=== PATIENT | female | born 1955 | race Caucasian/White ===

== ENCOUNTER → 2018-07-26 13:23 | Outpatient (CLI) | payer OTHER, SELFPAY ==
--- NOTE | 2018-07-26 13:35 | CT_ITS ---
STUDY: CT CHEST WITHOUT CONTRAST REASON FOR EXAM: Female, 63 years old. Hypercholesterolemia. Cardiac over read examination. RADIATION DOSAGE (If Supplied By Facility): CTDIvol = ( 12.19 ) mGy, DLP = ( 268.17 ) mGycm TECHNIQUE: Transaxial imaging was performed without the administration of intravenous contrast material. Individualized dose optimization techniques were used for this CT. COMPARISON: None. FINDINGS: The lungs are normal. There is no demonstrated pleural abnormality. There are calcifications of the coronary arteries. There are multiple small lymph nodes within the mediastinum, which are normal in size and morphology most compatible with reactive lymph hyperplasia. Normal hilar regions. Normal unenhanced pulmonary arteries. Normal aorta arch and descending thoracic aorta. There are degenerative changes of the thoracic spine. There is no demonstrated abnormality of the visualized upper abdomen. CT/Limited Chest CT w/CCTA IMPRESSION: No acute abnormality is seen. Electronically Signed: Harjeet Mullen MD at 14:06 EST Tel [phone], Service support ,
[2018-07-26 13:47] VITALS: BP 136/68; PULSE 70; RESP 14; TEMP 37; O2SAT 96; BMI 42.2
--- NOTE | 2018-07-26 14:10 | CDU_ITS ---
Reason For Study: Carotid Stenosis Rt. Velocities/BP Lt. Velocities/BP Prox CCA 83.3/21.7 cm/sec. Prox CCA 74.6/20.4 cm/sec. Mid CCA 86.8/24 cm/sec. Mid CCA 76.8/19.3 cm/sec. Dist CCA 87.9/18.8 cm/sec. Dist CCA 79.7/24 cm/sec. Prox ICA 61/12.3 cm/sec. Prox ICA 63.6/18.5 cm/sec. Mid ICA 54.5/22.3 cm/sec. Mid ICA 72.1/21.7 cm/sec. Dist ICA 65.7/24.3 cm/sec. Dist ICA 70.4/25.8 cm/sec. Rt. ICA/CCA = 0.76. Lt. ICA/CCA = 0.94. Prox ECA 68.6/9.97 cm/sec. Prox ECA 68.4/15.3 cm/sec. Rt. Vert. 27.5/5.5 cm/sec. Lt. Vert. 46.7/9.43 cm/sec. Right Extracranial There is intimal thickening but no significant atherosclerotic plaque noted in the right common carotid artery. There is intimal thickening but no significant atherosclerotic plaque noted in the right internal carotid artery. There is intimal thickening but no significant atherosclerotic plaque noted in the right external carotid artery. Antegrade flow is noted in the right vertebral artery. Left Extracranial There is intimal thickening but no significant atherosclerotic plaque noted in the left common carotid artery. There is intimal thickening but no significant atherosclerotic plaque noted in the left internal carotid artery. There is intimal thickening but no significant atherosclerotic plaque noted in the left external carotid artery. Antegrade flow is noted in the left vertebral artery. Procedure Carotid Duplex 33111. Exam performed in department. Interpretation Summary Mild (<50%) stenosis right extracranial internal carotid. Mild (<50%) stenosis left extracranial internal carotid. Flow within the vertebral arteries is antegrade bilaterally. Ordering Physician: Zeinab Reddy Referring Physician: Zeinab Reddy Performed By: More Craig RVT and Student
--- NOTE | 2018-07-28 08:47 | CA.SCORE ---
Calcium Scoring Date of Study:: 07/26/18 Coronary Calcium Scoring: Coronary calcium scoring. High-resolution computed CT imaging of the chest was performed on 07/26/2018 with particular attention paid to the coronary arteries. Images from the examination were analyzed for the presence and extent of coronary artery calcification using the coronary calcium quantification software. The patient tolerated the procedure well and there were no complications. The results of the coronary calcification analysis are provided and demonstrate the following. Left main coronary calcium score of 0. Left anterior descending artery score 129. Left circumflex artery score 15.5. Right coronary artery score 2.3. Total calcium score 147. The above is suggestive of moderate plaque burden with moderate nonobstructive coronary disease likely. Conclusion moderate plaque burden for age. Total calcium score 147.
== END ==
PROVIDERS: Family Provider Internal Medicine; PCP Internal Medicine; Referring Provider Internal Medicine; Visit Provider Internal Medicine
DX: I65.29 Occlusion and stenosis of unspecified carotid artery (principal); E78.00 Pure hypercholesterolemia, unspecified; E11.9 Type 2 diabetes mellitus without complications; R79.89 Other specified abnormal findings of blood chemistry
CPT/HCPCS: 75571; 76380; 93880

== ENCOUNTER → 2018-08-15 06:01 | Outpatient (CLI) | payer OTHER, SELFPAY ==
--- NOTE | 2018-08-15 10:42 | STRESSREP ---
Stress Test Report Exercise myocardial perfusion stress test. 63-year-old lady with a history of chest pain. Resting EKG demonstrates normal sinus rhythm with a rate of 73 bpm normal intervals noted resting blood pressure 132/78 mmHg. The patient exercised according to regular Angel protocol for total duration of 5 minutes and 16 seconds completing 2 minutes and 16 seconds of stage II of the Angel protocol the maximum heart rate attained was 142 bpm which was 89% maximum predicted heart rate the maximum workload was 7 metabolic equivalents. The patient maintained sinus rhythm throughout the recording. At rest there were no ST or T wave changes noted suggest ischemia peak exercise nonspecific ST-T wave changes occasional premature ventricular complexes and upsloping EKG changes were noted with normally the criteria for ischemia. The test was terminated due to leg fatigue. No chest pain was noted. The resting blood pressure was 120 2/78 with a peak blood pressure 156/76. Myocardial perfusion protocol. 14.5 mCi of technetium 99m sestamibi was injected at rest. The patient exercised according to regular Angel protocol for 5-1/2 minutes. At peak exercise 44.8 mCi of technetium 99m sestamibi was injected stress images were obtained stress and rest images were reconstructed and compared in the short axis vertical long and horizontal long axis. Gated images were also obtained per Perfusion SPECT analysis. Review of the stress images demonstrated normal uptake of tracer noted in all areas of the myocardium. The resting images similarly demonstrated normal uptake of tracer noted in all areas of the myocardium. No areas of reversibility are noted suggest ischemia no previous infarct is noted. Gated SPECT analysis: The gated ejection fraction is noted to be 81%. Conclusion: Normal exercise myocardial perfusion stress test at a moderate workload. Preserved ejection fraction.
--- OUTSIDE RECORDS SUMMARY | 2018-10-10 11:11 | XMS RPT_ITS | Continuity of Care Document ---
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 Visit Summary Date of Service: 05/22/17 Chief Complaint: Atraumatic right knee pain Hi story of Present Illness: The patient is a 62 F who presents because of atraumatic right knee pain that she localizes over the medial tibial plateau and is concerned she has a DVT since she was diagnose d with pulmonary embolus in February of this year. Reviewing records from that admission indicates that there was no evidence of DVT of the lower or upper extremity. She reports compliance with her anti-coa gulant, Xarelto she denies any chest pain or shortness of breath. She does have history of remote injury to the right knee and history of osteoarthritis. She denies fever or chills. She denies history o f gout or pseudogout. She has no other complaints. Physical Examination: Vital signs are noted. She is obese woman with a BMI of 43.9. There is no asymmetry, swelling, discoloration, leg vein distentio n, palpable cords or tenderness along the distribution of the deep venous system. There is pain palpation over the medial tibial plateau region. There is discomfort with varus and valgus stress testing; however, there is no laxity. Cate's test was negative. She complained of pain medially with modified Osiel's test; however, there is no click. Patella is not ballotable and there is no effusion. There is no pain elevation in the popliteal fossa. There is no mass noted in the popliteal fossa. DP and PT pulse are palpable. Test Results: 4 view x-ray of the knee was obtained and interpreted by me as negative. Emergency Department Course and Treatment: X-ray was obtained to see if there is any evidence of fracture findings suggestive of pseudogout or any bony abnormality may explain her discomf ort. Since patient is on anticoagulant she was not given an NSAID. Treatment Plan: Tylenol for pain and follow-up with PCP if no improvement in a week. Disposition: Charge to home in stable and improv ed condition Impression: Atraumatic right knee pain suspect secondary to osteoarthritis ED Disposition - Plan for ED Patient: Disposition: Home or Assisted Living Chief Complaint: Lower Extremity In jury Instructions: ED Knee Pain [facility] Referrals: Zeinab Reddy MD [Primary Care Provider] - 1 Week if not improving Additional Instructions: Because you are on an anticoagulant recommend Tylenol for pain. If there is no improvement in the next 5-7 days follow-up with your primary care physician Dr. Reddy for additional pain management/treatment. What to do if you have Problems For any increased pa in, shortness of breath, bleeding, nausea or vomiting, chest pain, or any unexpected problems, contact your Primary Care Provider. Call [facility] ([phone]) or report to the closest Emergency Room. Call 911 if necessary. 05/22/17 0937 <Electronically signed by Edwardo Gomez MD> Date Edwardo Gomez MD Cosigner Signature (If Indica eulogio): Date CC: Zeinab Reddy MD 22-May-2017 Knee 4 or More Views Result: Comments: See Note; NOTES: [facility] Imaging Services [address] [place] [address] Knee 4 or More Views MR#: [id number] Acct: [id number] Name: LYN HUFF Rep #: [id number] : 1955 F 62 From: Manuel Hobbs MD PCP: Zeinab Reddy MD Status: REG ER Study: Knee 4 or More Views Date of Exam: 05/22/17 Exam# [id number] Ordering Dr: Edwardo Gomez MD STUDY: X-RAY - RIGH T KNEE REASON FOR EXAM: Female, 62 years old. Pain TECHNIQUE: 4 view(s) of the knee. COMPARISON: None. FINDINGS: Normal visualized distal femur. Normal visualized proximal tibia and fibula. Normal proximal tibiofibular articulation. Medial compartment chondrocalcinosis. Normal lateral femorotibial compartment. Normal patellofemoral articulation. The soft tissu e structures are unremarkable. RAD/Knee 4 or More Views IMPRESSION: Medial compartment chondrocalcinosis. No acute osseous abnormality is evident . Electronically Signed: Manuel Hobbs MD at 9:30 EDT Tel , Service support , CC: Zeinab Reddy MD; Edwardo Gomez MD Safety Investigator/Cause Analyst: Signed 20-Feb-2017 CTA Chest W/WO Contrast Result: Comments: See Note; NOTES: [facility] Imaging Services [address] [place] [address] Verdana 4d CTA Chest W/WO Contrast MR#: [id number] Acct: [id number] Name: LYN HUFF ep #: [id number] : 1955 F 61 From: Harjeet Mullen MD PCP: Zeinab Reddy MD Status: REG ER Study: CTA Chest W/WO Contrast Date of Exam: 02/20/17 Exam# [id number] Ordering Dr: Arden Katz STUDY: CTA CHEST REASON FOR EXAM: Female, 61 years old. Chest pain. Right upper extremity numbness. Hypertension. RADIATION DOSAGE (If Supplied By Facility): CTDIvol = ( 16.72 ) mGy, DLP = ( 714.0 3 ) mGycm TECHNIQUE: The examination was performed with the intravenous administration of 100mL ml of Isovue 370 contrast material. Post-processing of the angiographic images was performed, with multip lanar reformation and 3D reconstruction. Individualized dose optimization techniques were used for this CT. COMPARISON: None. FINDINGS: There is evidence of a non occlusive bilateral intraluminal filling defects in the right and left pulmonary arterial branches involving both the upper and lower lobes. There is prominence of both pulmonary arteries. Normal thora cic aorta and visualized great vessels. There is no demonstrated aortic dissection. Normal heart and pericardium. Normal mediastinum. Normal hilar regions. Normal visualized trachea and bronchi. The lungs are well expanded. Normal pulmonary parenchyma. Normal pleura. Normal chest wall structures. There are degenerative changes of thoracic spine. The patient is status post cholecystectomy. Sma ll hiatal hernia. CT/CTA Chest W/WO Contrast IMPRESSION: Bilateral pulmonary embolism involving the right and left pulmonary arteries and branche s as described. There is no evidence of a dissection of the aorta. Electronically Signed: Harjeet Mullen MD at 12:53 EDT Tel [phone], Service support , CC: Zeinab Reddy MD; Arden Katz MD Safety Investigator/Cause Analyst: Signed 20-Feb-2017 Chest 1 View (Portable) Result: Comments: See Note; NOTES: [facility] Imaging Services [address] [place] [address] Verdana 4d Chest 1 View (Portable) MR#: [id number] Acct: [id number] Name: LYN HUFF #: [id number] : 1955 F 61 From: Harjeet Mullen MD PCP: Zeinab Reddy MD Status: REG ER Study: Chest 1 View (Portable) Date of Exam: 02/20/17 Exam# [id number] Ordering Dr: Arden Katz STUDY: X-RAY CHEST REASON FOR EXAM: Female, 61 years old. Right arm numbness. TECHNIQUE: Single AP portable view of the chest. COMPARISON: Comparison is made with prior study dated August 02 014. FINDINGS: Hyperinflation. Scattered calcified granulomas. There is no demonstrated pleural abnormality. Normal size heart. Normal mediastinum and juana. Normal visualized pulmonary arteries. There is atherosclerotic tortuosity of the aortic arch and descending thoracic aorta. There are diffuse degenerative changes of the visualized thoracic spine. Normal vis ualized ribs, clavicles, and shoulders. There is no demonstrated abnormality of the visualized soft tissue structures of the upper abdomen. RAD/ Chest 1 View (Portable) IMPRESSION: Hyperinflation. The lungs are clear. Electronically Signed: Harjeet Mullen MD at 11:27 EDT Tel [phone], Service support , Fax CC: Zeinab Reddy MD; Arden Katz MD Safety Investigator/Cause Analyst: Signed 08-Dec-2016 Operative Report Result: Comments: See Note; NOTES: [facility] Medical Records Department [address] [place] [address] Operative Report MR#: [id number] Acct: [id number] Name: LYN HUFF Rep #: [id number] : 1955 61 From: Jessica Mcdaniel MD PCP: Zeinab Reddy MD Status: [facility] DATE OF SERVICE: 12/07/2016 DATE OF PROCEDURE: 12/07/2016 PROCEDURE: D and C and endometrial polypectomy. PREO PERATIVE DIAGNOSIS: Postmenopausal bleeding and 9 mm endometrial stripe on pelvic ultrasound. POSTOPERATIVE DIAGNOSIS: Postmenopausal bleeding and 9 mm endometrial stripe on pelvic ultrasound and endom etrial polyp noted. SURGEON: Jessica Mcdaniel M.D. REGISTERED NURSE NURSERY: None. ESTIMATED BLOOD LOSS: Minimal. COMPLICATIONS: None. ANESTHESIA: MAC IV sedation per Guerline Jo CRNA and 9 mL of 1% lidocaine w ithout epinephrine as a paracervical block. PATHOLOGY SPECIMENS: Include minimal uterine curettings and an endometrial polyp. NARRATIVE ACCOUNT: After the risks, benefits, alternatives of the procedur e were reviewed with the patient, informed consent was obtained. The patient was taken to the operating room with an IV running and placed in dorsal supine position where she was given IV sedation. Once sedated, she was repositioned to the dorsal lithotomy position and prepped and draped in the usual sterile fashion. A red Walton catheter was used to drain the bladder. A Graves speculum was then tong sera into the vagina and a single-tooth tenaculum was applied to the anterior lip of the cervix after 9 mL of a paracervical block was instilled subcutaneously at the 2 o'clock, 4 o'clock, 8 o'clock and 10 o'clock positions. The cervix was easily dilated to allow admission of a sharp curette. The sharp curettage was performed. There was an irregularity noted at the anterior lower uterine segment and a polyp forceps was advanced to the cervix. Using several passes, the polyp was grasped and removed. A final sharp curettage was performed and there was good crei noted in all quadrants. There was very mi nimal endometrial curettings otherwise obtained except for the endometrial polyp. The pathology sample was set aside. The single-tooth tenaculum was removed from the anterior lip of the cervix. The uppe r vagina and cervix were cleansed of any remaining tissue and blood using a sponge stick. The speculum was removed then excellent hemostasis was noted except there was a first-degree vaginal laceration at the posterior introitus due to the speculum. This area was oversewn with 3- 0 Vicryl in a running nonlocked fashion after instillation of 1% lidocaine prior to the repair. Excellent hemostasis was the n noted. The patient was returned to dorsal supine position. She was awakened from her MAC IV sedation, transferred to the recovery room bed in stable condition after tolerating the procedure well. Spon ge, lap, needle and instrument counts were correct x2. Medications given preop and intraop included 9 mL of 1% lidocaine as a paracervical block and as a subcutaneous block 1% lidocaine was also used fo r the laceration repair of the posterior introitus. The length of the repair was less than 5 mm. The patient also received some ketamine as part of her IV sedation. Please see the anesthesia record for complete listing of medications given preop and intraop. Jessica Mcdaniel MD T: NTS JOB: [id number] 12/08/16 0822 <Electronically signed by Jessica Mcdaniel MD> Date Jessica Mcdaniel MD Cosigner Signature (If Indicated): Date CC: Zeinab Reddy MD; Jessica Mcdaniel MD Date Dictated: 7 1409 Date Transcribed: 12/07/161408 Safety Investigator/Cause Analyst: Signed 07-Dec-2016 Discharge Instruction Result: Comments: See Note; NOTES: [facility] Medical Records Department [address] [place] [address] Instructions for Home/Discharge Instructions 12/07/16 1318 MR#: [id number] Acct: [id number] Name: LYN HUFF Rep #: [id number] : 1955 61 From: Jessica Mcdaniel MD PCP: Zeinab Reddy MD [place] [facility] [place] Diet: No Restrictions Discharge Activity: May Shower, May Take a Tub Bath May resume sexual activity in: No Restrictions Call your doctor if you observe: Fever of 101 or Higher, Inability to have a bowel movement, Using more than one pad per hour, Uncontrolled pain Allergies/Adverse Reactions: Allergies No Known Allergies Allergy (Verified 12/01/16 09:09) Medications to take at Discharge Metformin HCl 500 mg PO BID 08/02/14 Atorvastatin Calcium [Lipitor] 40 mg PO QHS 12/01/16 Ergocalciferol [Vitamin D] 50,000 unit PO MOFR 12/01/16 Liraglutide [Victoza 2-Sanjay] 1.2 mg SQ DAILY 12/01/16 Lisinopril/Hydrochlorothiazide [Zestoretic 20/12.5 Tablet] 1 tablet PO JAMILA LY 12/01/16 Vortioxetine Hydrobromide [Brintellix] 10 mg PO DAILY 12/01/16 Primary Care Physician: Zeinab Reddy MD [Primary Care Provider] - Please Follow Up With: Jessica Mcdaniel - [phone] When: postoperative follow up appointment in two weeks Proposed Discharge Date: 12/07/16 12/07/16 1320 <Electronically signed by Jessica Mcdaniel MD> Date Jessica Mcdaniel MD CC: Zeinab Reddy MD 25-Oct-2016 Transvaginal Non- Result: Comments: See Note; NOTES: [facility] Imaging Services [address] [place] [address] Verdana 4d Transvaginal Non- MR#: [id number] Acct: [id number] Name: LYN HUFF Rep #: [id number] : 1955 F 61 From: Jorge Luis Swenson MD PCP: Zeinab Reddy MD Status: REG CLI Study: Transvaginal Non- Date of Exam: 10/25/16 Exam# [id number] Ordering Dr: Henri Reddy MD STUDY: ULTRASOUND TRANSVAGINAL CLINICAL: Female, 61 years old. Postmenopausal bleeding TECHNIQUE: Transvaginal COMPARISON: None. FINDINGS: Normal uterine size measuring 8.2 cm in maximal craniocaudal dimension. There are no myometrial masses. Normal endometrial thickness measuring 9 mm. There appears to be some heterogeneous echotexture of the endometr ium towards the lower uterine segment with some cystic changes demonstrated. There are no endometrial masses, and there is no fluid in the endometrial cavity. Normal uterine cervix. There is a small hy poechoic nodular finding consistent with fibroid, a focus measuring maximally just under 1 cm. Neither ovary is identified, and there are no adnexal masses. There is no free fluid in the pelvis. US/Transvaginal Non- IMPRESSION: Abnormal endometrial thickness for a postmenopausal patient, measuring at least 9 mm with some cystic changes seen of the endometrial tissues towards the lower uterine segment. Endometrial sampling is recommended as findings are consistent with endometrial hyperplasia or neoplasia. Tiny isolated fibroid in the myometrium measures no more than 1 cm. Electronically Signed: Danie Swenson MD at 7:02 EST Tel , Service support [phone], CC: Zeinab Reddy MD Safety Investigator/Cause Analyst: Signed 25-Oct-2016 Pelvic (Non ) Result: Comments: See Note; NOTES: [facility] Imaging Services [address] [place] [address] Verdana 4d Pelvic (Non ) MR#: [id number] Acct: [id number] Name: LYN HUFF Rep #: [id number] : 1955 F 61 From: Jorge Luis Swenson MD PCP: Zeinab Reddy MD Status: REG CLI Study: Pelvic (Non ) Date of Exam: 10/25/16 Exam# [id number] Ordering Dr: Zeinab Reddy MD TUDY: ULTRASOUND TRANSVAGINAL CLINICAL: Female, 61 years old. Postmenopausal bleeding TECHNIQUE: Transvaginal COMPARISON: None. FINDINGS: Normal uterine size me asuring 8.2 cm in maximal craniocaudal dimension. There are no myometrial masses. Normal endometrial thickness measuring 9 mm. There appears to be some heterogeneous echotexture of the endometrium towa rds the lower uterine segment with some cystic changes demonstrated. There are no endometrial masses, and there is no fluid in the endometrial cavity. Normal uterine cervix. There is a small hypoechoic nodular finding consistent with fibroid, a focus measuring maximally just under 1 cm. Neither ovary is identified, and there are no adnexal masses. There is no free fluid in the pelvis. US/Pelvic (Non ) IMPRESSION: Abnormal endometrial thickness for a postmenopausal patient, measuring at least 9 mm with some cystic changes seen of the endometrial tissues towards the lower uterine segment. Endometrial sampling is recommended as findings are consistent with endometrial hyperplasia or neoplasia. Tiny isolated fibroid in the myometrium measures no more than 1 cm. Electronically Signed: Danie Swenson MD at 7:02 EST Tel , Service support [phone], CC: Zeinab Reddy MD Safety Investigator/Cause Analyst: Signed 08-Sep-2016 Abdomen WITH IV Contrast Result: Comments: See Note; NOTES: [facility] Imaging Services [address] [place] [address] Verdana 4d Abdomen WITH IV Contrast MR#: [id number] Acct: [id number] Name: LYN HUFF Rep #: [id number] : 1955 F 61 From: Ryan Mccormick MD PCP: Zeinab Reddy MD Status: REG CLI Study: Abdomen WITH IV Contrast Date of Exam: 09/08/16 Exam# [id number] Ordering Dr: Zeinab Reddy MD STUDY: CT ABDOMEN WITH CONTRAST REASON FOR EXAM: Female, 61 years old. Elevated testosterone, attn:adrenals RADIATION DOSAGE (If Supplied By Facility): CTDIvol = ( 18.74 ) mGy, DLP = ( 846.01 ) mGycm TECHNIQUE: Transaxial images were obtained post I.V. administration of 100CC ml of Isovue 300 contrast, and with oral contrast. Sagittal and coronal images were reconstructed. Individualized dose opti mization techniques were used for this CT. COMPARISON: None. FINDINGS: The visualized lung bases are unremarkable. The visualized portions of the heart are within n ormal limits. Normal liver. There are surgical clips in the gallbladder fossa consistent with a prior cholecystectomy. Normal spleen. Normal pancreas. Normal bilateral adrenal glands. Normal right ki dney. Normal left kidney. Normal visualized stomach. Normal small intestine. Normal colon. There is non-visualization of the appendix. Normal abdominal aorta. Normal inferior vena cava. Normal retrope ritoneum. There is a small umbilical hernia containing fat. There are diffuse degenerative changes of the visualized lumbar spine. CT/Abdomen WI TH IV Contrast IMPRESSION: Normal bilateral adrenal glands. Electronically Signed: Ryan Mccormick MD at 20:32 EST , Service support [phone], CC: Zeinab Reddy MD Safety Investigator/Cause Analyst: Signed 09-Jun-2016 Bilat Scrn Digital AND CAD Result: Comments: See Note; NOTES: [facility] Imaging Services [address] [place] [address] Verdana 4d Bilat Scrn Digital AND CAD MR#: [id number] Acct: [id number] Name: LYN HUFF Rep #: [id number] : 1955 F 61 From: Harjeet Mullen MD PCP: Zeinab Reddy MD Status: REG CLI Study: Bilat Scrn Digital AND CAD Date of Exam: 06/09/16 Exam# [id number] Ordering Dr: Zeinab Reddy MD MAMMOGRAPHY - BILATERAL SCREENING REASON FOR EXAM: Female, 61 years old. Routine annual screening examination. PERTINENT HISTORY: Non- contributory. TECHNIQUE: Digital bilateral breast addi (3D mammographic acquisition) in the CC and MLO projections. 2-D mediolateral oblique (MLO) and craniocaudad (CC) views of both breasts were obtained. CAD: Full Field Digital Mammography with Computer Added Detection was performed. COMPARISON: Comparison is made with prior study dated January 24, 2014 and March 22, 2012. FINDINGS: Breast Composition: The breasts are glen ost entirely fatty. There are no dominant masses or suspicious calcifications. No other significant abnormalities are identified. There has been no significant change since the prior study. HPBI/Bilat Scrn Digital AND CAD IMPRESSION: Stable bilateral screening mammogram. Yearly follow-up mammogram recommended. (A) ASSESSMENT CATEGORY: BIRADS Category 1: Negative. A letter regarding these results will be sent to the patient by the facility within 30 days. Approximately 10% of breast cancers are not dete cted by mammography. A normal mammogram should not delay biopsy of a clinically suspicious abnormality. [id number] Electronically Signed: Harjeet Mullen MD at 15:31 EDT Tel [phone], Ser vice support [phone], CC: Zeinab Reddy MD Safety Investigator/Cause Analyst: Signed 09-Jun-2016 Dexa Bone Density Study (HP) Result: Comments: See Note; NOTES: [facility] Imaging Services [address] [place] [address] Verdana 4d Dexa Bone Density Study (HP) MR#: [id number] Acct: [id number] Name: FABBY HUFF Rep #: [id number] : 1955 F 61 From: Harjeet Mullen MD PCP: Zeinab Reddy MD Status: REG CLI Study: Dexa Bone Density Study (HP) Date of Exam: 06/09/16 Exam# [id number] Ordering Dr: Zeinab Smith MD STUDY: DUAL ENERGY X-RAY ABSORPTIOMETRY / DXA REASON FOR EXAM: Female, 61 years old. Early menopause. TECHNIQUE: Bone Mineral Density (BMD) measurements of lumbar spine and bilateral hi ps were obtained. COMPARISON: None. FINDINGS: Lumbar Spine (L1-L4): g/cm2 (1.072) / T-score (-0.9) / Z-score (0.2) Findings are suggestive of normal bone density w ith a low fracture risk. Left Femur Total: g/cm2 (1.026) / T-score (0.1) / Z- score (1.0) Left Femoral Neck: g/cm2 (0.853) / T-score (-1.3) / Z-score (-0.1) Right Femur Total: g/cm2 (0.922) / T-score (- 0.7) / Z-score (0.2) Right Femoral Neck: g/cm2 (0.792) / T-score (-1.8) / Z-score (-0.6) HPBD/Dexa Bone Density Study (HP) IMPRESSION: The los ent is considered osteopenic at the level of the femoral neck as outlined below according to World Eze Organization (WHO) criteria with a moderate fracture risk. R eference Information: The T-score is the number of standard deviations above or below the standard which is normal for young adults at their peak bone mineral density. The World Health Organization (WHO ) interprets the T-scores as follows: Above -1 Normal bone density Between -1 and -2.5 Osteopenia Equal to / or below -2.5 Osteoporosis As a practical clinical guideline, osteopenia may be graded as f ollows: Mild -1 through -1.5 Moderate -1.6 through -2.0 Severe -2.1 through -2.4 The Z-score is the number of standard deviations above or below age-matched controls. A Z-score of less than -1.5 would be considered abnormal. References: 1. NIH Osteoporosis and Related Bone Diseases http://www.osteo.org 2. International Society for Clinical Densitometry http://www.iscd.org 3. National Osteoporosis Fo undation http://www.nof.org Electronically Signed: Harjeet Mullen MD at 13:29 EDT Tel [phone], Service support [phone], CC: Zeinab Reddy MD Safety Investigator/Cause Analyst: Signed 01-Jun-2016 Carotid Duplex Ultrasound Result: Comments: See Note; NOTES: [facility] Cardiovascular Services [address] [place] [address] Carotid Duplex Ultrasound 05/31/16 1301 MR#: [id number] Acct: [id number] Name: LYN RICHARD Rep #: [id number] : 1955 61 From: Samuel Johnston MD Attending Dr: Zeinab Reddy MD Status: REG CLI Ordering Dr: Zeinab Reddy MD Date: 05/31/16 Location: [facility] Sex: F C Admitted: Reason For Study: Carotid Stenosis Rt. Velocities/BP Lt. Velocities/BP Prox CCA 83/19 cm/sec. Prox CCA 77/18 cm/sec. Mid CCA 66/17 cm/sec. Mid CCA 74/25 cm/sec. Dist CCA 70/18 cm/sec. Dist CCA 80/25 cm /sec. Prox ICA 50/15 cm/sec. Prox ICA 48/17 cm/sec. Mid ICA 51/21 cm/sec. Mid ICA 57/20 cm/sec. Dist ICA 51/20 cm/sec. Dist ICA 116/39 cm/sec. Rt. ICA/CCA = 0.77. Lt. ICA/CCA = 1.56. Prox ECA 84/12 cm/s ec. Prox ECA 64/11 cm/sec. Rt. Vert. 25/8 cm/sec. Lt. Vert. 52/15 cm/sec. Right Extracranial There is intimal thickening but no significant atherosclerotic plaque noted in the right common carotid pam ry. There is no significant atherosclerotic plaque noted in the right internal carotid artery. There is no significant atherosclerotic plaque noted in the right external carotid artery. Antegrade flow i s noted in the right vertebral artery. Left Extracranial There is intimal thickening but no significant atherosclerotic plaque noted in the left common carotid artery. There is no significant atheroscl erotic plaque noted in the left internal carotid artery. There is no significant atherosclerotic plaque noted in the left external carotid artery. Antegrade flow is noted in the left vertebral artery. Procedure Carotid Duplex [id number]. Exam performed in department. Interpretation Summary Mild (<50%) stenosis right extracranial internal carotid. Mild (<50%) stenosis left extracranial int ernal carotid. Flow within the vertebral arteries is antegrade bilaterally. Ordering Physician: Zeinab Cody Referring Physician: Zeinab Reddy Performed By: Margarita Agustin, BERONICA, RVT 06/01/16824 Date Samuel Johnston MD CC: Zeinab Reddy MD Date Dictated: 05/31/16 1301 Date Transcribed: 06/01/16824 Safety Investigator/Cause Analyst: Signed 07-Aug-2014 Nuclear Stress Test - Treadmil Result: Comments: See Note; NOTES: [facility] Imaging Services [address] [place] [address] Nuclear Medicine Report MR#: [id number] Acct: [id number] Name: LYN HUFF Rep #: [id number] : 1955 F 59 From: Caden Barajas MD PCP: Zeinab Reddy MD Status: REG CLI Study: Nuclear Stress Test - Treadmil Date of Exam: 08/07/14 Exam# [id number] Ordering Dr: Carlotta Dennis EXERCISE TOLERANCE TEST: The patient exercised on a Angel protocol for 5 minutes completing stage 1 and 2 minutes of stage 2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 Comments: Patient Position: Sitting; Cuff Location: Left Arm; Cuff Size: Large BP Diastolic 80 mm[Hg] Comments: Patient Position: Sitting; Cuff Location: Left Arm; Cuff Size: Large Weight 236 lb Height 62 in Body Mass Index Calculated 43.16 kg/m2 Body Surface Area Calculated 2.05 m2 :34 Temperature 97.6 f Comments: Method: Oral Pulse 74 /min Comments: Pattern: Regular Respiration Rate 20 /min Comments: Pattern: Unlabored BP Systolic 124 mm[Hg] Comments: Patient Position: Sitting; Cuff Location: Left Arm; Cuff Size: Large BP Diastolic 78 mm[Hg] Comments: Patient Position: Sitting; Cuff Location: Left Arm; Cuff Size: Large Weight 236 lb Height 62 in Body Mass Index Calculated 43.16 kg/m2 Body Surface Area Calculated 2.05 m2 :43 Temperature 98.6 f Comments: Method: Oral Pulse 74 /min Comments: Pattern: Regular Respiration Rate 20 /min Comments: Pattern: Unlabored BP Systolic 122 mm[Hg] Comments: Patient Position: Sitting; Cuff Location: Left Arm; Cuff Size: Large BP Diastolic 78 mm[Hg] Comments: Patient Position: Sitting; Cuff Location: Left Arm; Cuff Size: Large Weight 263 lb Height 62 in Body Mass Index Calculated 48.1 kg/m2 Body Surface Area Calculated 2.15 m2 :32 Temperature 98.2 f Comments: Method: Temporal Pulse 72 /min Comments: Pattern: Regular Respiration Rate 16 /min Comments: Pattern: Unlabored O2 SAT 97 % Comments: Room air BP Systolic 136 mm[Hg] Comments: Patient Position: Sitting; Cuff Location: Left Arm; Cuff Size: Standard BP Diastolic 82 mm[Hg] Comments: Patient Position: Sitting; Cuff Location: Left Arm; Cuff Size: Standard Weight 268 lb Height 62 in Body Mass Index Calculated 49.02 kg/m2 Body Surface Area Calculated 2.16 m2 :51 Temperature 100.4 f Comments: Method: Oral Pulse 87 /min Comments: Pattern: Regular Respiration Rate 20 /min Comments: Pattern: Unlabored O2 SAT 95 % Comments: Room air BP Systolic 142 mm[Hg] Comments: Patient Position: Sitting; Cuff Location: Left Arm; Cuff Size: Standard BP Diastolic 72 mm[Hg] Comments: Patient Position: Sitting; Cuff Location: Left Arm; Cuff Size: Standard Weight 262 lb Height 62 in Body Mass Index Calculated 47.92 kg/m2 Body Surface Area Calculated 2.14 m2 :50 Temperature 97.8 f Comments: Method: Oral Pulse 74 /min Comments: Pattern: Regular Respiration Rate 18 /min Comments: Pattern: Unlabored BP Systolic 124 mm[Hg] Comments: Patient Position: Sitting; Cuff Location: Left Arm; Cuff Size: Standard BP Diastolic 84 mm[Hg] Comments: Patient Position: Sitting; Cuff Location: Left Arm; Cuff Size: Standard Weight 253 lb Height 62 in Body Mass Index Calculated 46.27 kg/m2 Body Surface Area Calculated 2.11 m2 :10 Temperature 98.4 f Comments: Method: Oral Pulse 78 /min Comments: Pattern: Regular Respiration Rate 20 /min Comments: Pattern: Unlabored BP Systolic 136 mm[Hg] Comments: Patient Position: Sitting; Cuff Location: Left Arm; Cuff Size: Standard BP Diastolic 80 mm[Hg] Comments: Patient Position: Sitting; Cuff Location: Left Arm; Cuff Size: Standard Weight 253 lb Height 62 in Body Mass Index Calculated 46.27 kg/m2 Body Surface Area Calculated 2.11 m2 :22 Temperature 99.4 f Comments: Method: Oral Pulse 74 /min Comments: Pattern: Regular Respiration Rate 20 /min Comments: Pattern: Unlabored BP Systolic 134 mm[Hg] Comments: Patient Position: Sitting; Cuff Location: Left Arm; Cuff Size: Standard BP Diastolic 86 mm[Hg] Comments: Patient Position: Sitting; Cuff Location: Left Arm; Cuff Size: Standard Weight 253 lb Height 62 in Body Mass Index Calculated 46.27 kg/m2 Body Surface Area Calculated 2.11 m2 :24 Temperature 97.8 f Comments: Method: Oral Pulse 70 /min Comments: Pattern: Regular Respiration Rate 20 /min Comments: Pattern: Unlabored BP Systolic 118 mm[Hg] Comments: Patient Position: Sitting; Cuff Location: Left Arm; Cuff Size: Large BP Diastolic 78 mm[Hg] Comments: Patient Position: Sitting; Cuff Location: Left Arm; Cuff Size: Large Weight 253 lb Height 62 in Body Mass Index Calculated 46.27 kg/m2 Body Surface Area Calculated 2.11 m2 :53 Temperature 98.2 f Comments: Method: Oral Pulse 80 /min Comments: Pattern: Regular Respiration Rate 18 /min Comments: Pattern: Unlabored BP Systolic 120 mm[Hg] Comments: Patient Position: Sitting; Cuff Location: Left Arm; Cuff Size: Standard BP Diastolic 76 mm[Hg] Comments: Patient Position: Sitting; Cuff Location: Left Arm; Cuff Size: Standard Weight 260.5625 lb Height 62 in Body Mass Index Calculated 47.66 kg/m2 Body Surface Area Calculated 2.14 m2 :44 Temperature 98.2 f Comments: Method: Oral Pulse 74 /min Comments: Pattern: Regular Respiration Rate 18 /min Comments: Pattern: Unlabored BP Systolic 120 mm[Hg] Comments: Patient Position: Sitting; Cuff Location: Left Arm; Cuff Size: Standard BP Diastolic 72 mm[Hg] Comments: Patient Position: Sitting; Cuff Location: Left Arm; Cuff Size: Standard Weight 260.5625 lb Height 62 in Body Mass Index Calculated 47.66 kg/m2 Body Surface Area Calculated 2.14 m2 :45 Temperature 98.4 f Comments: Method: Oral Pulse 72 /min Comments: Pattern: Regular Respiration Rate 20 /min Comments: Pattern: Unlabored BP Systolic 128 mm[Hg] Comments: Patient Position: Sitting; Cuff Location: Left Arm; Cuff Size: Standard BP Diastolic 78 mm[Hg] Comments: Patient Position: Sitting; Cuff Location: Left Arm; Cuff Size: Standard Weight 260.5625 lb Height 62 in Body Mass Index Calculated 47.66 kg/m2 Body Surface Area Calculated 2.14 m2 :11 Temperature 98.2 f Comments: Method: Oral Pulse 68 /min Comments: Pattern: Regular Respiration Rate 20 /min Comments: Pattern: Unlabored O2 SAT 96 % Comments: Room air BP Systolic 124 mm[Hg] Comments: Patient Position: Sitting; Cuff Location: Left Arm; Cuff Size: Large BP Diastolic 68 mm[Hg] Comments: Patient Position: Sitting; Cuff Location: Left Arm; Cuff Size: Large Weight 244 lb Height 61.5 in Body Mass Index Calculated 45.36 kg/m2 Body Surface Area Calculated 2.07 m2 :59 Temperature 98.2 f Comments: Method: Oral Pulse 76 /min Comments: Pattern: Regular Respiration Rate 20 /min Comments: Pattern: Unlabored BP Systolic 124 mm[Hg] Comments: Patient Position: Sitting; Cuff Location: Left Arm; Cuff Size: Large BP Diastolic 76 mm[Hg] Comments: Patient Position: Sitting; Cuff Location: Left Arm; Cuff Size: Large Weight 254 lb Height 61.5 in Body Mass Index Calculated 47.22 kg/m2 Body Surface Area Calculated 2.1 m2 :30 Temperature 99.1 f Comments: Method: Oral Pulse 92 /min Comments: Pattern: Regular Respiration Rate 20 /min Comments: Pattern: Unlabored BP Systolic 126 mm[Hg] Comments: Patient Position: Sitting; Cuff Location: Left Arm; Cuff Size: Large BP Diastolic 72 mm[Hg] Comments: Patient Position: Sitting; Cuff Location: Left Arm; Cuff Size: Large Weight 248 lb :59 Temperature 99.3 f Comments: Method: Oral Pulse 76 /min Comments: Pattern: Regular Respiration Rate 18 /min Comments: Pattern: Unlabored BP Systolic 140 mm[Hg] Comments: Patient Position: Sitting; Cuff Location: Left Arm; Cuff Size: Large BP Diastolic 100 mm[Hg] Comments: Patient Position: Sitting; Cuff Location: Left Arm; Cuff Size: Large Weight 249 lb :28 Pulse 78 /min Comments: Pattern: Regular Respiration Rate 18 /min Comments: Pattern: Unlabored BP Systolic 146 mm[Hg] Comments: Patient Position: Sitting; Cuff Location: Left Arm; Cuff Size: Large BP Diastolic 92 mm[Hg] Comments: Patient Position: Sitting; Cuff Location: Left Arm; Cuff Size: Large Weight 0 lb Height 0 in Head Circumference 0.00 cm :59 Temperature 98.2 f Comments: Method: Oral Pulse 80 /min Comments: Pattern: Regular Respiration Rate 16 /min Comments: Pattern: Unlabored BP Systolic 130 mm[Hg] Comments: Patient Position: Sitting; Cuff Location: Left Arm; Cuff Size: Large BP Diastolic 78 mm[Hg] Comments: Patient Position: Sitting; Cuff Location: Left Arm; Cuff Size: Large Weight 0 lb Height 0 in Head Circumference 0.00 cm :54 Pulse 76 /min Comments: Pattern: Regular Respiration Rate 16 /min Comments: Pattern: Unlabored BP Systolic 142 mm[Hg] Comments: Patient Position: Sitting; Cuff Location: Left Arm; Cuff Size: Large BP Diastolic 84 mm[Hg] Comments: Patient Position: Sitting; Cuff Location: Left Arm; Cuff Size: Large Weight 0 lb Height 0 in Head Circumference 0.00 cm :40 Temperature 98.4 f Comments: Method: Oral Pulse 76 /min Comments: Pattern: Regular Respiration Rate 16 /min Comments: Pattern: Unlabored BP Systolic 142 mm[Hg] Comments: Patient Position: Sitting; Cuff Location: Left Arm; Cuff Size: Standard BP Diastolic 94 mm[Hg] Comments: Patient Position: Sitting; Cuff Location: Left Arm; Cuff Size: Standard Weight 0 lb Height 0 in Head Circumference 0.00 cm :50 Temperature 98.6 f Comments: Method: Oral Pulse 60 /min Comments: Pattern: Regular Respiration Rate 20 /min Comments: Pattern: Unlabored BP Systolic 118 mm[Hg] Comments: Patient Position: Sitting; Cuff Location: Left Arm; Cuff Size: Large BP Diastolic 78 mm[Hg] Comments: Patient Position: Sitting; Cuff Location: Left Arm; Cuff Size: Large Weight 227 lb Height 0 in Head Circumference 0.00 cm :22 Temperature 97.8 f Comments: Method: Oral Pulse 70 /min Comments: Pattern: Regular Respiration Rate 18 /min Comments: Pattern: Unlabored BP Systolic 122 mm[Hg] Comments: Patient Position: Sitting; Cuff Location: Left Arm; Cuff Size: Standard BP Diastolic 78 mm[Hg] Comments: Patient Position: Sitting; Cuff Location: Left Arm; Cuff Size: Standard Weight 227 lb Height 0 in Head Circumference 0.00 cm :08 Temperature 98.2 f Comments: Method: Oral Pulse 68 /min Comments: Pattern: Regular Respiration Rate 18 /min Comments: Pattern: Unlabored BP Systolic 122 mm[Hg] Comments: Patient Position: Sitting; Cuff Location: Left Arm; Cuff Size: Standard BP Diastolic 80 mm[Hg] Comments: Patient Position: Sitting; Cuff Location: Left Arm; Cuff Size: Standard Weight 236 lb Height 61.5 in Body Mass Index Calculated 43.87 kg/m2 Body Surface Area Calculated 2.04 m2 Head Circumference 0.00 cm Results Date Description Value Details [id number] CBC WITH MANUAL DIFF Comments: PATIENT NOT FASTINGPERFORMED BY: [facility] Mtzcyp4848 [facility] [id number] Information: NURSE DRAW ([id number]) Immature Grans (Abs) 0.0 {x10E3/uL} (Normal) Range: 0.0-0.1 Immature Granulocytes 0 % (Normal) Baso (Absolute) 0.0 {x10E3/uL} (Normal) Range: 0.0-0.2 Eos (Absolute) 0.3 {x10E3/uL} (Normal) Range: 0.0-0.4 Monocytes(Absolute) 0.5 {x10E3/uL} (Normal) Range: 0.1-0.9 Lymphs (Absolute) 1.5 {x10E3/uL} (Normal) Range: 0.7-3.1 Neutrophils (Absolute) 3.8 {x10E3/uL} (Normal) Range: 1.4-7.0 Basos 1 % (Normal) Eos 4 % (Normal) Monocytes 9 % (Normal) Lymphs 25 % (Normal) Neutrophils 61 % (Normal) Platelets 293 {x10E3/uL} (Normal) Range: 150-379 RDW 14.2 % (Normal) Range: 12.3-15.4 MCHC 35.2 g/dL (Normal) Range: 31.5-35.7 MCH 31.7 pg (Normal) Range: 26.6-33.0 MCV 90 fL (Normal) Range: 79-97 Hematocrit 42.3 % (Normal) Range: 34.0-46.6 Hemoglobin 14.9 g/dL (Normal) Range: 11.1-15.9 RBC 4.70 {x10E6/uL} (Normal) Range: 3.77-5.28 WBC 6.2 {x10E3/uL} (Normal) Range: 3.4-10.8 7-Ecl-[id number]:45 Metabolic Panel, Comprehensive Comments: PATIENT NOT FASTINGPERFORMED BY: [facility] Obdttm5516 [facility] [id number] ([id number]) ALT (SGPT) 25 [iU]/L (Normal) Range: 0-32 AST (SGOT) 23 [iU]/L (Normal) Range: 0-40 Alkaline Phosphatase 77 [iU]/L (Normal) Range: 39-117 Bilirubin, Total 0.9 mg/dL (Normal) Range: 0.0-1.2 A/G Ratio 1.4 (Normal) Range: 1.2-2.2 Globulin, Total 3.1 g/dL (Normal) Range: 1.5-4.5 Albumin 4.3 g/dL (Normal) Range: 3.6-4.8 Protein, Total 7.4 g/dL (Normal) Range: 6.0-8.5 Calcium 9.5 mg/dL (Normal) Range: 8.7-10.3 Carbon Dioxide, Total 20 mmol/L (Normal) Range: 20-29 Chloride 102 mmol/L (Normal) Range: 96-106 Potassium 4.0 mmol/L (Normal) Range: 3.5-5.2 Sodium 142 mmol/L (Normal) Range: 134-144 BUN/Creatinine Ratio 17 (Normal) Range: 12-28 eGFR If Africn Am 81 mL/min/1.73 (Normal) eGFR If NonAfricn Am 70 mL/min/1.73 (Normal) Creatinine 0.89 mg/dL (Normal) Range: 0.57-1.00 BUN 15 mg/dL (Normal) Range: 8-27 Glucose 136 mg/dL (Abnormal) Range: 65-99 01-Opx-400237:41 HgA1C , Office (05025) HgA1C , Office 6.0 % (Normal) Range: 4.6 - 7.1 1-Qtm-454979:43 CALCIFIDIOL (78793) VIT D 25 Comments: PATIENT WAS FASTINGPERFORMED BY: [employer] [facility] HospitalGlycoMimeticsFormerly [facility] [id number] Vitamin D, 25-Hydroxy 39.6 ng/mL (Normal) Range: 30.0-100.0 Comments: Vitamin D deficiency has been defined by the [place] of[facility] Hospital[facility] and an Endocrine Society practice guideline as alevel of serum 25-OH vitamin D less than 20 ng/mL (1,2).The Endocrine Society went on to further define vitamin Dinsufficiency as a level between 21 and 29 ng/mL (2).1. IOM ([place] of Medicine). 2010. Dietary reference intakes for calcium and D. [place]: The National Academies Press.2. Ritika MF, Demetrio NC, Barbara PENNY, et al. Evaluation, treatment, and prevention of vitamin D deficiency: an Endocrine Society clinical practice guideline. JCEM. 2010; 96(7):1911-30. :43 METABOLIC PANEL, COMPREHENSIVE Comments: PATIENT WAS FASTINGPERFORMED BY: [facility] [employer] [id number] ([id number]) ALT (SGPT) 22 [iU]/L (Normal) Range: 0-32 AST (SGOT) 20 [iU]/L (Normal) Range: 0-40 Alkaline Phosphatase 83 [iU]/L (Normal) Range: 39-117 Bilirubin, Total 0.8 mg/dL (Normal) Range: 0.0-1.2 A/G Ratio 1.3 (Normal) Range: 1.2-2.2 Globulin, Total 3.1 g/dL (Normal) Range: 1.5-4.5 Albumin 4.1 g/dL (Normal) Range: 3.6-4.8 Protein, Total 7.2 g/dL (Normal) Range: 6.0-8.5 Calcium 9.3 mg/dL (Normal) Range: 8.7-10.3 Carbon Dioxide, Total 24 mmol/L (Normal) Range: 18-29 Chloride 103 mmol/L (Normal) Range: 96-106 Potassium 5.0 mmol/L (Normal) Range: 3.5-5.2 Sodium 143 mmol/L (Normal) Range: 134-144 BUN/Creatinine Ratio 18 (Normal) Range: 12-28 eGFR If Africn Am 104 mL/min/1.73 (Normal) eGFR If NonAfricn Am 90 mL/min/1.73 (Normal) Creatinine 0.73 mg/dL (Normal) Range: 0.57-1.00 BUN 13 mg/dL (Normal) Range: 8-27 Glucose 128 mg/dL (Abnormal) Range: 65-99 0-Yge-070816:43 CBC W/AUTO DIFF WBC (97060) Comments: PATIENT WAS FASTINGPERFORMED BY: [facility]Wovyoj9249 [facility] [id number]; fu 5-17 db Immature Grans (Abs) 0.0 {x10E3/uL} (Normal) Range: 0.0-0.1 Immature Granulocytes 0 % (Normal) Baso (Absolute) 0.0 {x10E3/uL} (Normal) Range: 0.0-0.2 Eos (Absolute) 0.2 {x10E3/uL} (Normal) Range: 0.0-0.4 Monocytes(Absolute) 0.7 {x10E3/uL} (Normal) Range: 0.1-0.9 Lymphs (Absolute) 2.6 {x10E3/uL} (Normal) Range: 0.7-3.1 Neutrophils (Absolute) 4.1 {x10E3/uL} (Normal) Range: 1.4-7.0 Basos 1 % (Normal) Eos 2 % (Normal) Monocytes 9 % (Normal) Lymphs 34 % (Normal) Neutrophils 54 % (Normal) Platelets 296 {x10E3/uL} (Normal) Range: 150-379 RDW 15.1 % (Normal) Range: 12.3-15.4 MCHC 34.5 g/dL (Normal) Range: 31.5-35.7 MCH 30.5 pg (Normal) Range: 26.6-33.0 MCV 88 fL (Normal) Range: 79-97 Hematocrit 40.9 % (Normal) Range: 34.0-46.6 Hemoglobin 14.1 g/dL (Normal) Range: 11.1-15.9 RBC 4.63 {x10E6/uL} (Normal) Range: 3.77-5.28 WBC 7.6 {x10E3/uL} (Normal) Range: 3.4-10.8 :20 HgA1C , Office (61354) HgA1C , Office 6.8 % (Normal) Range: 4.6 - 7.1 4-Pfs-136718:37 D-Dimer Quantitative (DVT/PE) Comments: [facility] [address] [facility]. [place], [place], [id number] D-DIMER QUANT < 0.27 {FEU/ug/m} (Abnormal) Range: 0.27-0.49 Comments: NORMAL D-Dimer level (<0.50) indicates no DVT or PE. 53-Jll-226545:35 LIPID PANEL (82753) Comments: PATIENT WAS FASTINGPERFORMED BY: BN [facility] [address] [id number] BY: CB [facility] Syaihl4108 [facility] [id number] LDL/HDL Ratio 2.0 {ratio_units} (Normal) Range: 0.0-3.2 Comments: LDL/HDL Ratio Men Women 1/2 Avg.Risk 1.0 1.5 Av g.Risk 3.6 3.2 2X Avg.Risk 6.2 5.0 3X Avg.Risk 8.0 6.1 LDL Cholesterol Calc 105 mg/dL (Abnormal) Range: 0-99 VLDL Cholesterol Jesús 36 mg/dL (Normal) Range: 5-40 HDL Cholesterol 52 mg/dL (Normal) Triglycerides 180 mg/dL (Abnormal) Range: 0-149 Cholesterol, Total 193 mg/dL (Normal) Range: 100-199 92-Agc-332690:35 LIPOPROTEIN, BLD, BY NMR Comments: PATIENT WAS FASTINGPERFORMED BY: BN [facility] Yllenukujw6353 [facility] [id number] BY: CB [facility] Eloulh1854 [facility] [id number]; fu - db ([id number]) LP-IR Score 72 (Abnormal) Comments: INSULIN RESISTANCE MARKER <--Insulin Sensitive Insulin Resistant--> Percentile in Reference PopulationInsulin Resistance ScoreLP-IR Score Low 25th 50th 75th High <27 27 45 63 >63LP-IR Score is inaccurate if patient is non-fasting. .The LP-IR score is a laboratory developed i [facility] that has beenassociated with insulin resistance and diabetes risk and should beused as one component of a physician's clinical assessment. TheLP-IR score listed above has not been cleared by the [place] Food andDrug Administration. LDL Size 21.0 nm (Normal) Comments: INTERPRETATIVE INFORMATION PARTICLE CONCENTRATION AND SIZE <--Lower CVD Risk Highe r CVD Risk--> LDL AND HDL PARTICLES Percentile in Reference Population HDL-P (total) High 75th 50th 25th Low >34.9 34.9 30.5 26.7 <26.7 . Small LDL-P Low 25th 50th 75th High <117 117 527 839 >839 . LDL Size <-Large (Pattern A)-> <-Small (Pattern B)-> 23.0 20.6 20.5 19.0 Small LDL-P and LDL Size are associated with CVD risk, but not afterLDL-P is taken into account. .These assays were developed and their performance characteristicsdetermined by [employer]. These assays have not been cleared by [place] Food and Drug Administration. The clinical utility of theselaboratory values have not been fully established. Small LDL-P 422 nmol/L (Normal) HDL-P (Total) 37.3 umol/L (Normal) Cholesterol, Total 194 mg/dL (Normal) Range: 100-199 Triglycerides 180 mg/dL (Abnormal) Range: 0-149 HDL-C 52 mg/dL (Normal) LDL-C 106 mg/dL (Abnormal) Range: 0-99 Comments: . Optimal < 100 Above optimal 100 - 129 Borderline 1 30 - 159 High 160 - 189 Very high > 189 .LDL-C is inaccurate if patient is non-fasting. LDL-P 1230 nmol/L (Abnormal) Comments: Low < 1000 Moderate 1000 - 1299 Borderline-High 1300 - 1599 High 1600 - 2000 Very High > 2000 09-Blj-233116:35 Homocysteine, Plasma Comments: PATIENT WAS FASTINGPERFORMED BY: [employer] [id number] BY: [employer] Bhlgru6175 [employer] [facility] [id number] ([id number]) Homocyst(e)ine, Plasma 11.3 umol/L (Normal) Range: 0.0-15.0 58-Tth-722854:10 MICROALBUMIN: CREATININE RATIO Comments: PATIENT NOT FASTINGPERFORMED BY: [employer] Shwrüm [facility] [id number] ([id number]) AND (67362) Microalb/Creat Ratio <8.6 {mg/g_creat} (Normal) Range: 0.0-30.0 Microalbumin, Urine <3.0 ug/mL (Normal) Creatinine, Urine 34.9 mg/dL (Normal) 31-Yud-603093:10 URINALYSIS (04680) Comments: PATIENT NOT FASTINGPERFORMED BY: [employer] [facility] [id number] Microscopic Examination MICNIP (Normal) Comments: Microscopic not indicated and not performed. Nitrite, Urine Negative (Normal) Urobilinogen,Semi-Qn 0.2 mg/dL (Normal) Range: 0.2-1.0 Bilirubin Negative (Normal) Occult Blood Negative (Normal) Ketones Negative (Normal) Glucose 3+ (Abnormal) Protein Negative (Normal) WBC Esterase Negative (Normal) Appearance Clear (Normal) Urine-Color Yellow (Normal) pH 7.0 (Normal) Range: 5.0-7.5 Specific Regina 1.013 (Normal) Range: 1.005-1.030 98-Cse-614578:10 Metabolic Panel, Comprehensive Comments: PATIENT NOT FASTINGPERFORMED BY: [facility]Fcpsfc5144 [facility] [id number] ([id number]) ALT (SGPT) 16 [iU]/L (Normal) Range: 0-32 AST (SGOT) 12 [iU]/L (Normal) Range: 0-40 Alkaline Phosphatase, S 75 [iU]/L (Normal) Range: 39-117 Bilirubin, Total 0.9 mg/dL (Normal) Range: 0.0-1.2 A/G Ratio 1.2 (Normal) Range: 1.2-2.2 Globulin, Total 3.1 g/dL (Normal) Range: 1.5-4.5 Albumin, Serum 3.8 g/dL (Normal) Range: 3.6-4.8 Protein, Total, Serum 6.9 g/dL (Normal) Range: 6.0-8.5 Calcium, Serum 8.9 mg/dL (Normal) Range: 8.7-10.3 Carbon Dioxide, Total 22 mmol/L (Normal) Range: 18-29 Chloride, Serum 100 mmol/L (Normal) Range: 96-106 Potassium, Serum 4.1 mmol/L (Normal) Range: 3.5-5.2 Sodium, Serum 140 mmol/L (Normal) Range: 134-144 BUN/Creatinine Ratio 10 (Abnormal) Range: 12-28 eGFR If Africn Am 96 mL/min/1.73 (Normal) eGFR If NonAfricn Am 83 mL/min/1.73 (Normal) Creatinine, Serum 0.78 mg/dL (Normal) Range: 0.57-1.00 BUN 8 mg/dL (Normal) Range: 8-27 Glucose, Serum 111 mg/dL (Abnormal) Range: 65-99 31-Rsm-949084:10 CBC WITH MANUAL DIFF Comments: PATIENT NOT FASTINGPERFORMED BY: DESI [facility]Dqmoeg[address] [place] [address] [id number] Information: DRAWN BY NURSE ([id number]) Immature Grans (Abs) 0.0 {x10E3/uL} (Normal) Range: 0.0-0.1 Immature Granulocytes 0 % (Normal) Baso (Absolute) 0.0 {x10E3/uL} (Normal) Range: 0.0-0.2 Eos (Absolute) 0.2 {x10E3/uL} (Normal) Range: 0.0-0.4 Monocytes(Absolute) 0.5 {x10E3/uL} (Normal) Range: 0.1-0.9 Lymphs (Absolute) 1.9 {x10E3/uL} (Normal) Range: 0.7-3.1 Neutrophils (Absolute) 5.4 {x10E3/uL} (Normal) Range: 1.4-7.0 Basos 0 % (Normal) Eos 3 % (Normal) Monocytes 6 % (Normal) Lymphs 24 % (Normal) Neutrophils 67 % (Normal) Platelets 301 {x10E3/uL} (Normal) Range: 150-379 RDW 14.2 % (Normal) Range: 12.3-15.4 MCHC 33.5 g/dL (Normal) Range: 31.5-35.7 MCH 30.3 pg (Normal) Range: 26.6-33.0 MCV 90 fL (Normal) Range: 79-97 Hematocrit 42.1 % (Normal) Range: 34.0-46.6 Hemoglobin 14.1 g/dL (Normal) Range: 11.1-15.9 RBC 4.66 {x10E6/uL} (Normal) Range: 3.77-5.28 WBC 8.1 {x10E3/uL} (Normal) Range: 3.4-10.8 51-Bwt-699423:13 Homocysteine, Plasma Comments: PATIENT NOT FASTINGPERFORMED BY: [address] [id number] Information: DRAWEN BY NURSE; fu 10-26 db per patient has not been taking the mtx (82224) Homocyst(e)ine, Plasma 16.5 umol/L (Abnormal) Range: 0.0-15.0 15-Cpf-759150:45 HgA1C , Office (93186) HgA1C , Office 6.1 % (Normal) Range: 4.6 - 7.1 4-Dld-318127:36 CBC-Complete Blood Cnt No Diff Comments: [facility] [address] [place], [address] MPV 9.9 fL (Normal) Range: 6.2-12.0 PLT 467 K/mm3 (Abnormal) Range: 150-450 RDW SD 44.9 fL (Abnormal) Range: 35.1-43.9 RDW CV 13.7 % (Normal) Range: 11.6-14.6 MCHC 34.5 {g/gl} (Normal) Range: 32-36 MCH 31.2 pg (Normal) Range: 27.0-32.0 MCV 90.6 fL (Normal) Range: 81-99 HCT 44.4 % (Normal) Range: 37-47 HGB 15.3 g/dL (Abnormal) Range: 12.0-15.0 RBC 4.90 {M/mm3} (Normal) Range: 4.2-5.4 WBC 7.5 K/mm3 (Normal) Range: 4.4-11.0 6-Nlt-508050:36 Thyroid Stim Hormone (TSH) Comments: [facility] [address] [place], [address] TSH 0.87 {uIU/mL} (Normal) Range: 0.358-3.74 8-Jph-449096:05 Basic Metabolic Profile (BMP) Comments: 'TROP' Serial specimen #1, #2, #3, or #4: [id number] [address] [place], [address] GAP 9 (Normal) Range: 5-15 CO2 24.0 mmol/L (Normal) Range: 21.0-32.0 CL 106 mmol/L (Normal) Range: 98-107 K 3.7 mmol/L (Normal) Range: 3.5-5.1 NA 139 mmol/L (Normal) Range: 136-145 CA 9.1 mg/dL (Normal) Range: 8.5-10.1 BUN/CRE 16.5 {RATIO} (Normal) Range: 10-20 Estimated CRCL 49.39 ml/min (Normal) EST GFR - AA 76 mL/min (Normal) Comments: GFR Calc EST GFR 62 mL/min (Normal) Comments: Non- GFR Calc CREAT,SERUM 0.97 mg/dL (Normal) Range: 0.55-1.02 Comments: The validity of the calculated GFR AND GFRAA in patients over70 years has not been determined. Clinical correlation isessential. BUN 16 mg/dL (Normal) Range: 7-18 GLU 142 mg/dL (Abnormal) Range: 70-110 Comments: Fasting Glucose result greater than or equal to 126 mg/dLsuggests DIABETES MELLITUS per A.D.A. criteria. 7-Gao-207847:05 CBC W/Diff, Automated Comments: [facility] [address] [place], [place], [id number] Absolute Lymph 2.08 {X10_3/ul} (Normal) Range: 0.83-4.51 Absolute Neut 7.1 {X10_3/uL} (Normal) Range: 2.0-7.7 IM GRAN % 0.200 % (Normal) Range: 0.0-0.9 Comments: IG% - Immature Granulocytes (promyelocytes, myelocytes andmetamyelocytes) > 1% indicates that a LEFT SHIFT is Present. BASO% 0.4 % (Normal) Range: 0-1 EO% 0.8 % (Normal) Range: 0-5 MONO% 7.5 % (Normal) Range: 0-10 LY% 20.6 % (Normal) Range: 19-41 NEUT% 70.5 % (Abnormal) Range: 47-70 MPV 9.1 fL (Normal) Range: 6.2-12.0 PLT 415 K/mm3 (Normal) Range: 150-450 RDW SD 43.7 fL (Normal) Range: 35.1-43.9 RDW CV 13.6 % (Normal) Range: 11.6-14.6 MCHC 34.9 {g/gl} (Normal) Range: 32-36 MCH 31.3 pg (Normal) Range: 27.0-32.0 MCV 89.7 fL (Normal) Range: 81-99 HCT 42.7 % (Normal) Range: 37-47 HGB 14.9 g/dL (Normal) Range: 12.0-15.0 RBC 4.76 {M/mm3} (Normal) Range: 4.2-5.4 WBC 10.1 K/mm3 (Normal) Range: 4.4-11.0 0-Hxp-051920:05 Troponin-I Comments: 'TROP' Serial specimen #1, #2, #3, or #4: 1[facility] [address] [place], [place], [address] TROPONIN-I < 0.02 ng/mL Comments: TROPONIN-I EXPECTED VALUES <0.05 NEGATIVE 0.06 - 0.59 AT RISK OF FL > OR = 0.60 SUGGEST FL (Normal) ENDOMETRIAL See Note (Normal) Comments: [facility] [address] [place], [place], [address] :30 BX/CURETTINGS Comments: Patient: LYN HUFF : 1955 (61/F) Acct Num: [id number] Phys: Jessica Mcdaniel MD Unit Num: [id number] [place] [facility] [place]imen: [id number] Received: 12/07/161408 Spec Type: END OM BX/C TISSUES TISSUES: COMMENT Case has been reviewed in consultation with Dr. Lyle who concurs with the abovediagnosis. IDC:AM GROSS DESCRIPTION Received is one container l abeled with the patient's name and designated endometrial curettings and polyp. The specimen consists of multiple fragmentsof blood clot mixed with pederson, hemorrhagic soft tissue in aggregate measure 7 .5 x3 x 0.3 cm. Also received is a piece of pederson-pink polyp measuring 1.5 x 1 x 0.3 cm. The entire specimen is submitted in four cassettes. Cassette 3 contains the polyp. / SJ:rodney 12/07/16 TC: 5 CP T: 02491 HEADER OPERATION: Dilatation and curettage PRE-OP DIAGNOSIS: Postmenopausal bleeding TISSUE SUBMITTED: Endometrial curettings and polyp MICROSCOPIC DESCRIPTION Slides are revie wed. MICROSCOPIC DIAGNOSIS Endometrial curettings and polyp: Polypoid fragments of endometrial tissue with simple and complex hyperplasia without atypia. Focal tubal metaplasia. Frag ments of benign ecto- and endocervical mucosa. SJ:rodney 12/08/16 Signed Jaswinder Gregorioin 12/09/16 <signature on file> 09-Ics-310540:14 Bedside Glucose Comments: [facility] LaboratoryPoint of [address] [place], [place] [address] BEDSIDE GLU 116 mg/dL (Abnormal) Range: 70-110 Comments: No Action RequiredMANAGEMENT OF PATIENT CARE PER NURSING PROTOCOL 2-Lpv-272078:24 PT (Prothrobim Time) Comments: copy of nd labs to Dr. mcdaniel; PATIENT NOT FASTINGPERFORMED BY: Vacatia [facility] [id number] BY: [place] [employer] [id number] (42596) Prothrombin Time 10.2 {sec} (Normal) Range: 9.1-12.0 INR 1.0 (Normal) Range: 0.8-1.2 Comments: Reference interval is for non-anticoagulated patients. . Suggested INR therapeutic range for Vitamin K anta gonist therapy: Standard Dose (moderate intensity therapeutic range): 2.0 - 3.0 Higher intensity therapeutic range 2.5 - 3.5 8-Yxv-012205:24 ESTRADIOL (22456) Comments: PATIENT NOT FASTINGPERFORMED BY: [employer]70 [facility] [id number] BY: Ombud [address] [id number] Estradiol 13.5 pg/mL (Normal) Comments: Adult Female: Follicular phase 12.5 - 166.0 Ovulation phase 85.8 - 498.0 Luteal phase 43.8 - 211.0 Postmenopausal <6.0 - 54.7 1st trimester 215.0 - & gt;4300.0 Girls (1-10 years) 6.0 - 27.0Roche ECLIA methodology 2-Oab-765349:24 TESTOSTERONE FREE (28568) Comments: PATIENT NOT FASTINGPERFORMED BY: LabJoseph Ville 6590770 [facility] [id number] BY: [address] [id number] Free Testosterone(Direct) 3.8 pg/mL (Normal) Range: 0.0-4.2 :24 CBC, Platelets & Auto Comments: PATIENT NOT FASTINGPERFORMED BY: [facility]6370 [facility] [id number] BY: [address] [id number] Diff (99594) Immature Grans (Abs) 0.0 {x10E3/uL} (Normal) Range: 0.0-0.1 Immature Granulocytes 0 % (Normal) Baso (Absolute) 0.0 {x10E3/uL} (Normal) Range: 0.0-0.2 Eos (Absolute) 0.2 {x10E3/uL} (Normal) Range: 0.0-0.4 Monocytes(Absolute) 0.7 {x10E3/uL} (Normal) Range: 0.1-0.9 Lymphs (Absolute) 2.3 {x10E3/uL} (Normal) Range: 0.7-3.1 Neutrophils (Absolute) 5.0 {x10E3/uL} (Normal) Range: 1.4-7.0 Basos 1 % (Normal) Eos 2 % (Normal) Monocytes 8 % (Normal) Lymphs 28 % (Normal) Neutrophils 61 % (Normal) Platelets 326 {x10E3/uL} (Normal) Range: 150-379 RDW 14.0 % (Normal) Range: 12.3-15.4 MCHC 35.2 g/dL (Normal) Range: 31.5-35.7 MCH 31.9 pg (Normal) Range: 26.6-33.0 MCV 91 fL (Normal) Range: 79-97 Hematocrit 43.2 % (Normal) Range: 34.0-46.6 Hemoglobin 15.2 g/dL (Normal) Range: 11.1-15.9 RBC 4.77 {x10E6/uL} (Normal) Range: 3.77-5.28 WBC 8.2 {x10E3/uL} (Normal) Range: 3.4-10.8 :24 PROLACTIN (39825) Comments: PATIENT NOT FASTINGPERFORMED BY: [facility]6370 [facility] [id number] BY: [address] [id number] Prolactin 15.1 ng/mL (Normal) Range: 4.8-23.3 :24 PTT (Activated Partial Comments: PATIENT NOT FASTINGPERFORMED BY: [address] [id number] BY: [address] [id number] Thromboplastin Time) (69809) aPTT 26 {sec} (Normal) Range: 24-33 Comments: This test has not been validated for monitoring unfractionated heparintherapy. aPTT-based therapeutic ranges for unfractionated heparintherapy have not been established. For general guidelines onHeparin monitoring, refer to the [facility] Directory of Services. 6-Gwv-794168:26 Urinalysis, Office (67972) URINE UROBILINGN FANNY TIMED Normal mg/dL (Normal) UA - PROTEIN Negative mg/dL (Normal) UA - PH 6.0 (Normal) UA - BLOOD Hemolyzed Small (Normal) UA - SPECIFIC GRAVITY 1.030 (Abnormal) UA - KETONES Negative mg/dL (Normal) UA - BILIRUBIN Negative (Normal) UA - GLUCOSE Negative (Normal) :27 HgA1C , Office (92779) HgA1C , Office 5.9 % (Normal) Range: 4.6 - 7.1 :27 Blood Glucose , Office (22468) Blood Glucose , Office 109 (Normal) :03 IGP, Aptima HPV, Comments: Source.............Cervix;EndocervixNo. of containers..01 CYTYC Thin Prep VialPATIENT NOT FASTINGPERFORMED BY: =Enoch [address] PlazaCharl[place] [id number] BY: WB LabCo rfx 16/18,[address] [id number] HPV Aptima Negative (Normal) Comments: This test detects fourteen high-risk HPV types (16/18/31/33/35/39/45/51/52/56/58/59/66/68) without differentiation. Note: PAPSMR (Normal) Comments: The Pap smear is a screening test designed to aid in the detection ofpremalignant and malignant conditions of the uterine cervix. It is not adiagnostic procedure and should not be used as the sole mean s of detectingcervical cancer. Both false-positive and false-negative reports do occur. .This liquid based ThinPrep(R) pap test w as screened with theuse of an image guided system. See Note . (Normal) DIAGNOSIS: SPRCS (Normal) Comments: NEGATIVE FOR INTRAEPITHELIAL LESION AND MALIGNANCY.Satisfactory for evaluation. No endocervical component is identified.Z01.419Margarita Reagan Crusher Setter (ASCP) :54 HEPATIC FUNCTION PANEL Comments: PATIENT WAS FASTINGPERFORMED BY: SAV[employer] [id number] BY: LabCN CreativeJeff[facility]Gqdpjj9852 [facility] [id number] (89755) ALT (SGPT) 15 [iU]/L (Normal) Range: 0-32 AST (SGOT) 10 [iU]/L (Normal) Range: 0-40 Alkaline Phosphatase, S 87 [iU]/L (Normal) Range: 39-117 Bilirubin, Direct 0.20 mg/dL (Normal) Range: 0.00-0.40 Bilirubin, Total 0.9 mg/dL (Normal) Range: 0.0-1.2 Albumin, Serum 4.1 g/dL (Normal) Range: 3.5-5.5 Protein, Total, Serum 7.2 g/dL (Normal) Range: 6.0-8.5 :54 LIPOPROTEIN, BLD, BY NMR Comments: PATIENT WAS FASTINGPERFORMED BY: [facility] [address] [place] [id number] BY: DESI [facility] Jpzfby8417 [facility] [id number] (58516) LP-IR Score 82 (Abnormal) Comments: INSULIN RESISTANCE MARKER <--Insulin Sensitive Insulin Resistant--> Percentile in Reference PopulationInsulin Resistance ScoreLP-IR Score Low 25th 50th 75th High <27 27 45 63 >63LP-IR Score is inaccurate if patient is non-fasting. .The LP-IR score is a laboratory developed i [facility] that has beenassociated with insulin resistance and diabetes risk and should beused as one component of a physician's clinical assessment. TheLP-IR score listed above has not been cleared by the [place] Food andDrug Administration. LDL Size 20.2 nm (Normal) Comments: INTERPRETATIVE INFORMATION PARTICLE CONCENTRATION AND SIZE <--Lower CVD Risk Highe r CVD Risk--> LDL AND HDL PARTICLES Percentile in Reference Population HDL-P (total) High 75th 50th 25th Low >34.9 34.9 30.5 26.7 <26.7 . Small LDL-P Low 25th 50th 75th High <117 117 527 839 >839 . LDL Size <-Large (Pattern A)-> <-Small (Pattern B)-> 23.0 20.6 20.5 19.0 Small LDL-P and LDL Size are associated with CVD risk, but not afterLDL-P is taken into account. .These assays were developed and their performance characteristicsdetermined by [employer]. These assays have not been cleared by [place] Food and Drug Administration. The clinical utility of theselaboratory values have not been fully established. Small LDL-P 1257 nmol/L (Abnormal) HDL-P (Total) 39.3 umol/L (Normal) Cholesterol, Total 279 mg/dL (Abnormal) Range: 100-199 Triglycerides 292 mg/dL (Abnormal) Range: 0-149 HDL-C 54 mg/dL (Normal) LDL-C 167 mg/dL (Abnormal) Range: 0-99 Comments: . Optimal < 100 Above optimal 100 - 129 Borderline 1 30 - 159 High 160 - 189 Very high > 189 .LDL-C is inaccurate if patient is non-fasting. LDL-P 2148 nmol/L (Abnormal) Comments: Low < 1000 Moderate 1000 - 1299 Borderline-High 1300 - 1599 High 1600 - 2000 Very High > 2000 :54 CALCIFEDIOL (99517) Comments: PATIENT WAS FASTINGPERFORMED BY: AdverCar1447 [facility] [id number] BY: SincerelyGallup Indian Medical CenterBcyrnr1502 [facility] [id number] Vitamin D, 25-Hydroxy 35.2 ng/mL (Normal) Range: 30.0-100.0 Comments: Vitamin D deficiency has been defined by the [place] ofMer[facility] Health St. Anne Hospitalcine and an Endocrine Society practice guideline as alevel of serum 25-OH vitamin D less than 20 ng/mL (1,2).The Endocrine Society went on to further define vitamin Dinsufficiency as a level between 21 and 29 ng/mL (2).1. IOM ([place] of Medicine). 2010. Dietary reference intakes for calcium and D. [place]: The National Academies Press.2. Ritika MF, Demetrio [place], Barbara PENNY, et al. Evaluation, treatment, and prevention of vitamin D deficiency: an Endocrine Society clinical practice guideline. JCEM. 2010; 96(7):1911-30. :54 TESTOSTERONE FREE (22249) Comments: PATIENT WAS FASTINGPERFORMED BY: Ombud Dwotuuktyw3783 [facility] [id number] BY: SincerelyJefferson [facility])Dcjqls0514 [facility] [id number] Free Testosterone(Direct) 5.6 pg/mL (Abnormal) Range: 0.0-4.2 :54 FSH AND LH (50698) Comments: PATIENT WAS FASTINGPERFORMED BY: ChemiSenseMatthew V[place] 812457 [facility] [id number] BY: [facility]6370 [facility] [id number] FSH 25.4 m[iU]/mL (Normal) Comments: Follicular phase 3.5 - 12.5 Ovulation phase 4.7 - 21.5 Luteal phase 1.7 - 7.7 Postmenopausal 25.8 - 134.8 LH 40.2 m[iU]/mL (Normal) Comments: Follicular phase 2.4 - 12.6 Ovulation phase 14.0 - 95.6 Luteal phase 1.0 - 11.4 Postmenopausal 7.7 - 58.5 67-Apa-423051:54 DHEA-S (DEHYDROEPIANDROSTERONE Comments: PATIENT WAS FASTINGPERFORMED BY: Sincerely[address] [id number] BY: [place] 7174570 [facility] [id number] SULFATE) (65290) DHEA-Sulfate 119.9 ug/dL (Normal) Range: 29.4-220.5 1-Dnf-380147:03 Thin prep Pap Comments: Source.............Cervix;EndocervixNo. of containers..01 CYTYC Thin Prep VialPATIENT NOT FASTINGPERFORMED BY: =G Lab[address] [id number] BY: [facility] ([address]) (no STD rp [address] [id number] Information: [id number] testing) Age Gdln ACOG Testing 30-65 (Normal) 09-Mzj-75118:48 URINE DAVID CULTURE-IDENTIFICATN Comments: PATIENT NOT FASTINGPERFORMED BY: [place] 7174570 [facility] [id number] Information: [id number] (66635) Result 1 MUG (Normal) Comments: Mixed urogenital flora2,000 Colonies/mL Urine Culture,Comprehensive Final report (Normal) 36-Rsj-52839:05 Urinalysis, Office (13231) UA - LEUKOCYTE ESTERASE Negative (Normal) UA - NITRITE Negative (Normal) URINE UROBILINGN FANNY TIMED Normal mg/dL (Normal) UA - PROTEIN Negative mg/dL (Normal) UA - PH 5 (Abnormal) UA - BLOOD Non Hemolyzed Trace (Normal) UA - SPECIFIC GRAVITY 1.030 (Abnormal) UA - KETONES Negative mg/dL (Normal) UA - BILIRUBIN Negative (Normal) UA - GLUCOSE Negative (Normal) 81-Fgf-913224:37 URINE DAVID CULTURE-IDENTIFICATN Comments: PATIENT NOT FASTINGPERFORMED BY: [facility]Br[facility]6370 [facility] [id number] Information: [id number] (59907) Antimicrobial MIHEAD (Normal) Comments: S = Susceptible; I = Intermediate; R = Resistant P = Positive; N = Negative MICS are expressed in micrograms per mL Antibiotic RSLT#1 RSLT#2 RS Susceptibility LT#3 RSLT#4Amoxicillin/Clavulanic Acid SAmpicillin RCefepime SCeftriaxone SCefuroxime SCephalothin SCiprofloxacin SErtapenem SGentamicin SImipenem SLevofloxacin SNitrofurantoin IPipera cillin STetracycline STobramycin STrimethoprim/Sulfa S Result 1 Klebsiella Comments: 100 Colonies/mL . pneumoniae (Abnormal) Urine Final report Culture,Comprehensive (Abnormal) 67-Ihy-936185:17 MICROALBUMIN: CREATININE RATIO Comments: PATIENT WAS FASTINGPERFORMED BY: SincerelyJefferson [facility])Xlcgmw3648 [facility] [id number] (75662) AND (44225) Microalb/Creat Ratio 6.1 {mg/g_creat} (Normal) Range: 0.0-30.0 Microalbumin, Urine 6.8 ug/mL (Normal) Range: 0.0-17.0 Comments: Effective January 25, 2016 the reference interval for Microalbumin, Urine will be changing to: Not Estab. Creatinine, Urine 111.5 mg/dL (Normal) Range: 15.0-278.0 Comments: Effective January 25, 2016 the reference interval for Creatinine, Urine will be changing to: Not Estab. 83-Rli-767576:17 METABOLIC PANEL, COMPREHENSIVE Comments: PATIENT WAS FASTINGPERFORMED BY: LabCoJefferson Strat[facility])Ypdpzt0456 [facility] [id number] (80210) ALT (SGPT) 20 [iU]/L (Normal) Range: 0-32 AST (SGOT) 17 [iU]/L (Normal) Range: 0-40 Alkaline Phosphatase, S 88 [iU]/L (Normal) Range: 39-117 Bilirubin, Total 0.9 mg/dL (Normal) Range: 0.0-1.2 A/G Ratio 1.4 (Normal) Range: 1.1-2.5 Globulin, Total 3.0 g/dL (Normal) Range: 1.5-4.5 Albumin, Serum 4.3 g/dL (Normal) Range: 3.5-5.5 Protein, Total, Serum 7.3 g/dL (Normal) Range: 6.0-8.5 Calcium, Serum 9.2 mg/dL (Normal) Range: 8.7-10.2 Carbon Dioxide, Total 22 mmol/L (Normal) Range: 18-29 Chloride, Serum 101 mmol/L (Normal) Range: 97-108 Potassium, Serum 4.7 mmol/L (Normal) Range: 3.5-5.2 Sodium, Serum 142 mmol/L (Normal) Range: 134-144 BUN/Creatinine Ratio 23 (Normal) Range: 9-23 eGFR If Africn Am 105 mL/min/1.73 (Normal) eGFR If NonAfricn Am 91 mL/min/1.73 (Normal) Creatinine, Serum 0.73 mg/dL (Normal) Range: 0.57-1.00 BUN 17 mg/dL (Normal) Range: 6-24 Glucose, Serum 118 mg/dL (Abnormal) Range: 65-99 68-Xfv-149395:17 LIPID PANEL (07960) Comments: PATIENT WAS FASTINGPERFORMED BY: [facility]CoJefferson [facility])Efkted7393 [facility] [id number] LDL/HDL Ratio 3.4 {ratio_units} (Abnormal) Range: 0.0-3.2 Comments: LDL/HDL Ratio Men Women 1/2 Avg.Risk 1.0 1.5 Av g.Risk 3.6 3.2 2X Avg.Risk 6.2 5.0 3X Avg.Risk 8.0 6.1 LDL Cholesterol Calc 165 mg/dL (Abnormal) Range: 0-99 VLDL Cholesterol Jesús 69 mg/dL (Abnormal) Range: 5-40 HDL Cholesterol 49 mg/dL (Normal) Comments: According to ATP-III Guidelines, HDL-C >59 mg/dL is considered anegative risk factor for CHD. Triglycerides 347 mg/dL (Abnormal) Range: 0-149 Cholesterol, Total 283 mg/dL (Abnormal) Range: 100-199 96-Pfa-994018:17 CBC with auto diff Comments: PATIENT WAS FASTINGPERFORMED BY: [facility]CoJefferson [facility])Kerzax9759 [facility] [id number] Information: [id number] (29886) Immature Grans (Abs) 0.0 {x10E3/uL} (Normal) Range: 0.0-0.1 Immature Granulocytes 0 % (Normal) Baso (Absolute) 0.0 {x10E3/uL} (Normal) Range: 0.0-0.2 Eos (Absolute) 0.2 {x10E3/uL} (Normal) Range: 0.0-0.4 Monocytes(Absolute) 0.6 {x10E3/uL} (Normal) Range: 0.1-0.9 Lymphs (Absolute) 2.4 {x10E3/uL} (Normal) Range: 0.7-3.1 Neutrophils (Absolute) 4.5 {x10E3/uL} (Normal) Range: 1.4-7.0 Basos 0 % (Normal) Eos 3 % (Normal) Monocytes 8 % (Normal) Lymphs 31 % (Normal) Neutrophils 58 % (Normal) Platelets 301 {x10E3/uL} (Normal) Range: 150-379 RDW 13.7 % (Normal) Range: 12.3-15.4 MCHC 33.3 g/dL (Normal) Range: 31.5-35.7 MCH 30.6 pg (Normal) Range: 26.6-33.0 MCV 92 fL (Normal) Range: 79-97 Hematocrit 44.8 % (Normal) Range: 34.0-46.6 Hemoglobin 14.9 g/dL (Normal) Range: 11.1-15.9 RBC 4.87 {x10E6/uL} (Normal) Range: 3.77-5.28 WBC 7.7 {x10E3/uL} (Normal) Range: 3.4-10.8 :27 Urinalysis, Office (51194) UA - LEUKOCYTE ESTERASE Trace (Normal) UA - NITRITE Negative (Normal) UA - PH 6 (Abnormal) Comments: 5.5 UA - SPECIFIC GRAVITY 1.030 (Abnormal) URINE UROBILINGN FANNY TIMED Normal mg/dL (Normal) UA - PROTEIN Negative mg/dL (Normal) UA - BLOOD Non Hemolyzed Trace (Normal) UA - KETONES Negative mg/dL (Normal) UA - BILIRUBIN Negative (Normal) UA - GLUCOSE Negative (Normal) :21 HgA1C , Office (14543) HgA1C , Office 6.6 % (Normal) Range: 4.6 - 7.1 :23 HgA1C , Office (76518) HgA1C , Office 5.7 % (Normal) Range: 4.6 - 7.1 :23 Blood Glucose , Office (80307) Blood Glucose , Office 101 (Normal) :42 CBCD ALC 1.98 {X10_3/ul} (Normal) Range: 0.83-4.51 ANC 3.5 {X10_3/uL} (Normal) Range: 2.0-7.7 IG% 0.000 % (Normal) Range: 0.0-0.9 Comments: IG% - Immature Granulocytes (promyelocytes, myelocytes andmetamyelocytes) > 1% indicates that a LEFT SHIFT is Present. B% 0.3 % (Normal) Range: 0-1 E% 2.0 % (Normal) Range: 0-5 M% 8.3 % (Normal) Range: 0-10 L% 32.2 % (Normal) Range: 19-41 N% 57.2 % (Normal) Range: 47-70 MPV 10.1 fL (Normal) Range: 6.2-12.0 PLT 314 K/mm3 (Normal) Range: 150-450 RDWSD 46.5 fL (Abnormal) Range: 35.1-43.9 RDWCV 14.0 % (Normal) Range: 11.6-14.6 MCHC 33.5 {g/gl} (Normal) Range: 32-36 MCH 30.8 pg (Normal) Range: 27.0-32.0 MCV 91.9 fL (Normal) Range: 81-99 HCT 43.0 % (Normal) Range: 37-47 HGB 14.4 g/dL (Normal) Range: 12.0-15.0 RBC 4.68 {M/mm3} (Normal) Range: 4.2-5.4 WBC 6.2 K/mm3 (Normal) Range: 4.4-11.0 :42 CMP GAP 5 (Normal) Range: 5-15 CO2 28.0 mmol/L (Normal) Range: 21.0-32.0 CL 107 mmol/L (Normal) Range: 98-107 K 4.6 mmol/L (Normal) Range: 3.5-5.1 NA 140 mmol/L (Normal) Range: 136-145 BIT 1.10 mg/dL (Normal) Range: 0.00-4.00 ALT 32 U/L (Normal) Range: 12-78 ALK 95 U/L (Normal) Range: 50-136 AST 17 U/L (Normal) Range: 15-37 CA 9.8 mg/dL (Normal) Range: 8.5-10.1 AG 1.0 {RATIO} (Normal) Range: 0.9-2.4 GLOB 3.8 g/dL (Normal) Range: 2.7-4.2 ALB 3.7 g/dL (Normal) Range: 3.4-5.0 TPROT 7.5 g/dL (Normal) Range: 6.4-8.2 BC 24.4 {RATIO} (Abnormal) Range: 10-20 GFRAA 84 mL/min (Normal) GFR 69 mL/min (Normal) CREAT 0.9 mg/dL (Normal) Range: 0.6-1.0 BUN 22 mg/dL (Abnormal) Range: 7-18 GLU 93 mg/dL (Normal) Range: 70-110 :42 LIPID VLDL 25 mg/dL (Normal) Range: 5-40 LDL 127 mg/dL (Normal) Range: 0-130 HDL 47 mg/dL (Normal) Comments: Reference RangeHDL <40 mg/dL Low HDL CholesterolHDL >or= 60 mg/dL High HDL Cholesterol TRIG 126 mg/dL (Normal) Range: 0-199 Comments: Serum Triglycerides Reference IntervalNormal <150 mg/dLBorderline high 150 - 199 mg/dLHigh 200 - 499 mg/ dLVery High > or = 500 mg/dL CHOL 199 mg/dL (Normal) Comments: <200 mg/dL Cjcxwbxcf836-502 mg/dL Borderline>240 mg/dL High Risk 07-Pzv-525876:01 Renal function Panel Comments: PATIENT NOT FASTINGPERFORMED BY: SincerelyGallup Indian Medical CenterBzabzf9782 [facility] [id number] Information: [id number] (62481) Albumin, Serum 4.5 g/dL (Normal) Range: 3.5-5.5 Phosphorus, Serum 4.2 mg/dL (Normal) Range: 2.5-4.5 Calcium, Serum 10.3 mg/dL (Abnormal) Range: 8.7-10.2 Carbon Dioxide, Total 24 mmol/L (Normal) Range: 18-29 Chloride, Serum 101 mmol/L (Normal) Range: 97-108 Potassium, Serum 4.7 mmol/L (Normal) Range: 3.5-5.2 Sodium, Serum 140 mmol/L (Normal) Range: 134-144 BUN/Creatinine Ratio 14 (Normal) Range: 9-23 eGFR If Africn Am 96 mL/min/1.73 (Normal) eGFR If NonAfricn Am 83 mL/min/1.73 (Normal) Creatinine, Serum 0.79 mg/dL (Normal) Range: 0.57-1.00 BUN 11 mg/dL (Normal) Range: 6-24 Glucose, Serum 105 mg/dL (Abnormal) Range: 65-99 36-Hhy-658342:01 MAGNESIUM (26086) Comments: PATIENT NOT FASTINGPERFORMED BY: [facility]enseBr[facility]6370 [facility] [id number] Magnesium, Serum 1.8 mg/dL (Normal) Range: 1.6-2.6 63-Pcw-191008:54 C-Reactive Protein (92435) Comments: PATIENT NOT FASTINGPERFORMED BY: [facility]iSenseBr[facility] Hospital6370 [facility] [id number] C-Reactive Protein, Quant 2.5 mg/L (Normal) Range: 0.0-4.9 63-Myk-083435:54 Sed Rate Erythrocyte (88268) Comments: PATIENT NOT FASTINGPERFORMED BY: [facility] [facility] [id number] Sedimentation Rate-Westergren 4 mm/h (Normal) Range: 0-40 70-Cnu-801456:54 T4, FREE (THYROXINE) (29980) Comments: PATIENT NOT FASTINGPERFORMED BY: [facility] [facility] [id number] T4,Free(Direct) 1.32 ng/dL (Normal) Range: 0.82-1.77 50-Rlk-370986:54 TSH (38456) Comments: PATIENT NOT FASTINGPERFORMED BY: [place] [id number] [facility] [id number] Information: [id number] TSH 1.770 {uIU/mL} (Normal) Range: 0.450-4.500 :39 HgA1C , Office (38572) HgA1C , Office 5.8 % (Normal) Range: 4.6 - 7.1 :39 Blood Glucose , Office (39676) Blood Glucose , Office 96 (Normal) :23 LIPID PANEL (18821) Comments: PATIENT WAS FASTINGPERFORMED BY: [facility] [facility] [id number] Information: [id number] LDL/HDL Ratio 2.6 {ratio_units} (Normal) Range: 0.0-3.2 LDL Cholesterol Calc 99 mg/dL (Normal) Range: 0-99 VLDL Cholesterol Jesús 41 mg/dL (Abnormal) Range: 5-40 HDL Cholesterol 38 mg/dL (Abnormal) Comments: According to ATP-III Guidelines, HDL-C >59 mg/dL is considered anegative risk factor for CHD. Triglycerides 204 mg/dL (Abnormal) Range: 0-149 Cholesterol, Total 178 mg/dL (Normal) Range: 100-199 :23 HEPATIC FUNCTION PANEL ([id number]) Comments: PATIENT WAS FASTINGPERFORMED BY: [facility]6370 [facility] [id number] ALT (SGPT) 23 [iU]/L (Normal) Range: 0-32 AST (SGOT) 19 [iU]/L (Normal) Range: 0-40 Alkaline Phosphatase, S 84 [iU]/L (Normal) Range: 39-117 Bilirubin, Direct 0.23 mg/dL (Normal) Range: 0.00-0.40 Bilirubin, Total 1.0 mg/dL (Normal) Range: 0.0-1.2 Albumin, Serum 4.4 g/dL (Normal) Range: 3.5-5.5 Protein, Total, Serum 7.2 g/dL (Normal) Range: 6.0-8.5 :42 MICROALBUMIN: CREATININE RATIO Comments: PATIENT WAS FASTINGPERFORMED BY: [employer] Ltmnhs7659 [facility] [id number] ([id number]) AND (59677) Creatinine, Urine 152.1 mg/dL (Normal) Range: 15.0-278.0 Microalb/Creat Ratio 23.3 {mg/g_creat} (Normal) Range: 0.0-30.0 Microalbumin, Urine 35.5 ug/mL (Abnormal) Range: 0.0-17.0 :42 METABOLIC PANEL, COMPREHENSIVE Comments: PATIENT WAS FASTINGPERFORMED BY: nlighten TechnologiesJefferson [facility]Ctgjnt6142 [facility] [id number] ([id number]) ALT (SGPT) 18 [iU]/L (Normal) Range: 0-32 AST (SGOT) 16 [iU]/L (Normal) Range: 0-40 Alkaline Phosphatase, S 83 [iU]/L (Normal) Range: 39-117 Bilirubin, Total 1.1 mg/dL (Normal) Range: 0.0-1.2 A/G Ratio 1.5 (Normal) Range: 1.1-2.5 Globulin, Total 2.9 g/dL (Normal) Range: 1.5-4.5 Albumin, Serum 4.3 g/dL (Normal) Range: 3.5-5.5 Protein, Total, Serum 7.2 g/dL (Normal) Range: 6.0-8.5 Calcium, Serum 9.4 mg/dL (Normal) Range: 8.7-10.2 Carbon Dioxide, Total 22 mmol/L (Normal) Range: 19-28 Chloride, Serum 98 mmol/L (Normal) Range: 97-108 Potassium, Serum 4.2 mmol/L (Normal) Range: 3.5-5.2 Sodium, Serum 138 mmol/L (Normal) Range: 134-144 BUN/Creatinine Ratio 16 (Normal) Range: 9-23 eGFR If Africn Am 101 mL/min/1.73 (Normal) eGFR If NonAfricn Am 88 mL/min/1.73 (Normal) Creatinine, Serum 0.76 mg/dL (Normal) Range: 0.57-1.00 BUN 12 mg/dL (Normal) Range: 6-24 Glucose, Serum 154 mg/dL (Abnormal) Range: 65-99 :42 LIPID PANEL (12655) Comments: PATIENT WAS FASTINGPERFORMED BY: [employer] [facility] [id number] LDL/HDL Ratio 3.5 {ratio_units} (Abnormal) Range: 0.0-3.2 LDL Cholesterol Calc 152 mg/dL (Abnormal) Range: 0-99 HDL Cholesterol 43 mg/dL (Normal) Comments: According to ATP-III Guidelines, HDL-C >59 mg/dL is considered anegative risk factor for CHD. VLDL Cholesterol Jesús 73 mg/dL (Abnormal) Range: 5-40 Cholesterol, Total 268 mg/dL (Abnormal) Range: 100-199 Triglycerides 363 mg/dL (Abnormal) Range: 0-149 :42 CBC WITH MANUAL DIFF Comments: PATIENT WAS FASTINGPERFORMED BY: [facility] [id number] Information: [id number] (42982) Immature Grans (Abs) 0.0 {x10E3/uL} (Normal) Range: 0.0-0.1 Immature Granulocytes 0 % (Normal) Range: 0-2 Baso (Absolute) 0.0 {x10E3/uL} (Normal) Range: 0.0-0.2 Eos (Absolute) 0.2 {x10E3/uL} (Normal) Range: 0.0-0.4 Monocytes(Absolute) 0.7 {x10E3/uL} (Normal) Range: 0.1-0.9 Lymphs (Absolute) 2.6 {x10E3/uL} (Normal) Range: 0.7-3.1 Neutrophils (Absolute) 4.2 {x10E3/uL} (Normal) Range: 1.4-7.0 Basos 1 % (Normal) Range: 0-3 Eos 2 % (Normal) Range: 0-5 Monocytes 9 % (Normal) Range: 4-12 Lymphs 34 % (Normal) Range: 14-46 Neutrophils 54 % (Normal) Range: 40-74 Platelets 311 {x10E3/uL} (Normal) Range: 155-379 RDW 14.3 % (Normal) Range: 12.3-15.4 MCHC 33.8 g/dL (Normal) Range: 31.5-35.7 MCH 30.3 pg (Normal) Range: 26.6-33.0 MCV 90 fL (Normal) Range: 79-97 Hematocrit 42.6 % (Normal) Range: 34.0-46.6 Hemoglobin 14.4 g/dL (Normal) Range: 11.1-15.9 RBC 4.76 {x10E6/uL} (Normal) Range: 3.77-5.28 WBC 7.7 {x10E3/uL} (Normal) Range: 3.4-10.8 2-Exj-261780:35 HgA1C , Office (19720) HgA1C , Office 6.4 % (Normal) Range: 4.6 - 7.1 1-Fon-796670:34 Blood Glucose , Office (11997) Blood Glucose , Office 124 (Normal) 53-Ynl-709051:21 Rapid Flu (42253 x 2) Influenza A Ag negative (Normal) 75-Mbn-837403:23 MICROALBUMIN: CREATININE RATIO Comments: PATIENT NOT FASTINGPERFORMED BY: [facility])Vxfzpf3449 [facility] [id number] ([id number]) AND (48573) Microalb/Creat Ratio 3.5 {mg/g_creat} (Normal) Range: 0.0-30.0 Microalbumin, Urine 5.6 ug/mL (Normal) Range: 0.0-17.0 Creatinine, Urine 158.0 mg/dL (Normal) Range: 15.0-278.0 49-Kbr-718245:23 METABOLIC PANEL, COMPREHENSIVE Comments: PATIENT NOT FASTINGPERFORMED BY: [facility]Br[facility]6370 [facility] [id number] (85570) ALT (SGPT) 16 [iU]/L (Normal) Range: 0-32 AST (SGOT) 15 [iU]/L (Normal) Range: 0-40 Alkaline Phosphatase, S 89 [iU]/L (Normal) Range: 25-150 Bilirubin, Total 1.1 mg/dL (Normal) Range: 0.0-1.2 A/G Ratio 1.4 (Normal) Range: 1.1-2.5 Globulin, Total 3.1 g/dL (Normal) Range: 1.5-4.5 Albumin, Serum 4.4 g/dL (Normal) Range: 3.5-5.5 Protein, Total, Serum 7.5 g/dL (Normal) Range: 6.0-8.5 Calcium, Serum 9.7 mg/dL (Normal) Range: 8.7-10.2 Carbon Dioxide, Total 20 mmol/L (Normal) Range: 20-32 Chloride, Serum 102 mmol/L (Normal) Range: 97-108 Potassium, Serum 4.3 mmol/L (Normal) Range: 3.5-5.2 Sodium, Serum 139 mmol/L (Normal) Range: 134-144 BUN/Creatinine Ratio 25 (Abnormal) Range: 9-23 eGFR If Africn Am 104 mL/min/1.73 (Normal) eGFR If NonAfricn Am 90 mL/min/1.73 (Normal) Creatinine, Serum 0.75 mg/dL (Normal) Range: 0.57-1.00 BUN 19 mg/dL (Normal) Range: 6-24 Glucose, Serum 101 mg/dL (Abnormal) Range: 65-99 43-Qva-212804:23 CBC WITH MANUAL DIFF Comments: PATIENT NOT FASTINGPERFORMED BY: [facility]6370 [facility] [id number] Information: [id number] (17749) Immature Grans (Abs) 0.0 {x10E3/uL} (Normal) Range: 0.0-0.1 Immature Granulocytes 0 % (Normal) Range: 0-2 Baso (Absolute) 0.0 {x10E3/uL} (Normal) Range: 0.0-0.2 Eos (Absolute) 0.1 {x10E3/uL} (Normal) Range: 0.0-0.4 Monocytes(Absolute) 0.7 {x10E3/uL} (Normal) Range: 0.1-1.0 Lymphs (Absolute) 2.8 {x10E3/uL} (Normal) Range: 0.7-4.5 Neutrophils (Absolute) 4.8 {x10E3/uL} (Normal) Range: 1.8-7.8 Basos 0 % (Normal) Range: 0-3 Eos 2 % (Normal) Range: 0-7 Monocytes 8 % (Normal) Range: 4-13 Lymphs 33 % (Normal) Range: 14-46 Neutrophils 57 % (Normal) Range: 40-74 Platelets 310 {x10E3/uL} (Normal) Range: 140-415 RDW 13.8 % (Normal) Range: 12.3-15.4 MCHC 34.6 g/dL (Normal) Range: 31.5-35.7 MCH 30.7 pg (Normal) Range: 26.6-33.0 MCV 89 fL (Normal) Range: 79-97 Hematocrit 41.0 % (Normal) Range: 34.0-46.6 Hemoglobin 14.2 g/dL (Normal) Range: 11.1-15.9 RBC 4.63 {x10E6/uL} (Normal) Range: 3.77-5.28 WBC 8.5 {x10E3/uL} (Normal) Range: 4.0-10.5 :52 Blood Glucose , Office (31505) Blood Glucose , Office 116 (Normal) :52 HgA1C , Office (48693) HgA1C , Office 6.2 % (Normal) Range: 4.6 - 7.1 :37 Rapid Flu (34133 x 2) Influenza A Ag negative (Normal) :27 HgA1C , Office (13491) HgA1C , Office 5.7 % (Normal) Range: 4.6 - 7.1 :27 Blood Glucose , Office (05305) Blood Glucose , Office 98 (Normal) 87-Rsv-835081:18 CREATININE CLEARANCE Comments: PATIENT NOT FASTINGPERFORMED BY: [facility]Ozapel4448 [facility] [id number] Information: [id number] (23242) 24 HOUR Creatinine Clearance 104 mL/min (Normal) Range: 88-128 Comments: The above range is based on 1.73 square meter average body surfacearea. Creatinine, Ur 24hr 1169.7 {mg/24_hr} (Normal) Range: 800.0-1800.0 Creatinine, Urine 55.7 mg/dL (Normal) Range: 15.0-278.0 eGFR If Africn Am 99 mL/min/1.73 (Normal) eGFR If NonAfricn Am 86 mL/min/1.73 (Normal) Creatinine, Serum 0.78 mg/dL (Normal) Range: 0.57-1.00 63-Uff-239959:43 LIPID PANEL (85176) Comments: PATIENT WAS FASTINGPERFORMED BY: [facility]Axgzgs2048 [facility] [id number] Information: [id number] LDL/HDL Ratio 3.0 {ratio_units} (Normal) Range: 0.0-3.2 LDL Cholesterol Calc 145 mg/dL (Abnormal) Range: 0-99 VLDL Cholesterol Jesús 61 mg/dL (Abnormal) Range: 5-40 HDL Cholesterol 48 mg/dL (Normal) Comments: According to ATP-III Guidelines, HDL-C >59 mg/dL is considered anegative risk factor for CHD. Triglycerides 307 mg/dL (Abnormal) Range: 0-149 Cholesterol, Total 254 mg/dL (Abnormal) Range: 100-199 17-Gcg-527017:53 HgA1C , Office (81232) HgA1C , Office 6.8 % (Normal) Range: 4.6 - 7.1 :53 Blood Glucose , Office (59753) Blood Glucose , Office 111 (Normal) 73-Snx-107396:03 Thin prep Pap Comments: Source.............Cervical;EndocervicalNo. of containers..01 CYTYC Thin Prep VialPATIENT NOT FASTINGPERFORMED BY: Lab[address] [id number] Information: [id number] ([id number]) Note: PAPSMR (Normal) Comments: The Pap smear is a screening test designed to aid in the detection ofpremalignant and malignant conditions of the uterine cervix. It is not adiagnostic procedure and should not be used as the sole mean s of detectingcervical cancer. Both false-positive and false-negative reports do occur. .The HPV DNA reflex criteria were not met with this specimen resulttherefore, no HPV testing was performed. . See Note . (Normal) DIAGNOSIS: SPRCS (Normal) Comments: NEGATIVE FOR INTRAEPITHELIAL LESION AND MALIGNANCY.Satisfactory for evaluation. No endocervical component is identified.V72.31 ; Routine gynecological examinationCyntyovany Nails Crusher Setter (ASCP) 62-Rbf-971927:06 HgA1C , Office (06681) HgA1C , Office 5.8 % (Normal) Range: 4.6 - 7.1 34-Akq-315163:06 Blood Glucose , Office (77323) Blood Glucose , Office 100 (Normal) 50-Pvp-609025:19 BILAT SCRN DIGITAL & CAD Radiology Report See Note (Normal) Comments: Exam Number: [id number] MAMMOGRAM, BILATERAL SCREENING DIGITAL AND CAD HISTORYRoutine screening. Full field digital images were obtained in mediolateral oblique andcraniocaudal projections. CAD images w ere reviewed. The current study is compared to the examinations of January 11, 2007,and February 01, 2008. There is a mild extent of fibroglandular parenchyma present. There isno skin thickening or retraction , architectural distortion, or clusterof suspicious microcalcifications. There is no dominant mass orsignificant interval change seen. If there is no suspicious palpableabnormality, followup mammogram in 1 year is recommended. IMPRESSIONThere is no radiographic evidence of malignancy identified. FINAL ASSESSMENTBIRADS Category 2 - Benign. A letter regarding these results has been sent to the patient . This interpretation was rendered by a radiologist certified under theMammography Quality Standards Act of 1992 (MQSA). The mammograms werealso examined with computer-aided detection software ([employer], [employer] Reported By: CASEY WARD M.D. 7-Woi-381099:27 HgA1C , Office (53458) HgA1C , Office 5.7 % (Normal) Range: 4.6 - 7.1 :11 CBCD BASO% 0.2 % (Normal) Range: 0-1 EO% 1.6 % (Normal) Range: 0-5 LY% 27.5 % (Normal) Range: 19-41 MONO% 8.8 % (Normal) Range: 0-10 HCT 40.3 % (Normal) Range: 37-47 HGB 14.3 g/dL (Normal) Range: 12.0-16.0 MCH 31.9 pg (Normal) Range: 27.0-32.0 MCHC 35.4 g/dL (Normal) Range: 32-36 MCV 90.1 fL (Normal) Range: 81-99 MPV 7.3 fL (Normal) Range: 6.5-12.0 NEUT% 61.9 % (Normal) Range: 47-70 PLT 304 K/mm3 (Normal) Range: 150-450 RBC 4.47 {M/mm3} (Normal) Range: 4.2-5.4 RDW 13.0 % (Normal) Range: 11.6-14.6 WBC 6.8 K/mm3 (Normal) Range: 4.4-11.0 :11 COMP METABOLIC ALT 23 U/L (Abnormal) Range: 30-65 CL 109 mmol/L (Abnormal) Range: 98-107 CO2 27.0 mmol/L (Normal) Range: 21.0-32.0 GAP 7 (Normal) Range: 5-15 K 4.1 mmol/L (Normal) Range: 3.5-5.1 NA 143 mmol/L (Normal) Range: 136-145 T BILI 0.90 mg/dL (Normal) Range: 0.00-1.00 A/G 0.8 {RATIO} (Abnormal) Range: 0.9-2.4 ALB 3.4 g/dL (Normal) Range: 3.4-5.0 ALK P 114 U/L (Normal) Range: 50-136 AST 14 U/L (Abnormal) Range: 15-37 BUN 10 mg/dL (Normal) Range: 7-18 BUN/CRE 14.3 {RATIO} (Normal) Range: 10-20 CA 8.9 mg/dL (Normal) Range: 8.5-10.1 CREAT,SERUM 0.7 mg/dL (Normal) Range: 0.6-1.0 EST GFR 93 mL/min (Normal) EST GFR - AA 113 mL/min (Normal) GLOB 4.2 g/dL (Normal) Range: 2.7-4.2 GLU 103 mg/dL (Normal) Range: 70-110 T PROT 7.6 g/dL (Normal) Range: 6.4-8.2 48-Rtq-12691:11 ROUTINE UA BILIRUBIN URINE SeeNote (Normal) Comments: Result: NEGATIVE CLARITY SeeNote (Normal) Comments: Result: SL CLOUDY COLOR YELLOW (Normal) GLUCOSE, UR SeeNote (Normal) Comments: Result: NEGATIVE KETONE UR SeeNote mg/dL (Normal) Comments: Result: NEGATIVE LEUK ESTERASE SeeNote (Normal) Comments: Result: NEGATIVE NITRITE UR SeeNote (Normal) Comments: Result: NEGATIVE OCCULT BLOOD-UR SeeNote (Abnormal) Comments: Result: TRACE-LYSED pH UR 5.5 (Normal) Range: 5.0-8.0 PROT DIPSTX SeeNote (Normal) Comments: Result: NEGATIVE SP.GR. DIPSTX >=1.030 (Normal) Range: 1.002-1.030 UROBILI 0.2 EU/dl (Normal) Range: 0.2 - 1.0 24-Lbp-106865:09 Pap Lb, Ct-Ng, Comments: Source.............Cervical;EndocervicalNo. of containers..01 CYTYC Thin Prep VialClinical Information: [id number] PERFORMED BY: =[facility] [id number] HPV-hr . . (Normal) Chlamydia, Nuc. Acid Amp Negative (Normal) DIAGNOSIS: SPRCS (Normal) Comments: NEGATIVE FOR INTRAEPITHELIAL LESION AND MALIGNANCY.Satisfactory for evaluation. Endocervical and/or squamous metaplasticcells (endocervical component) are present.789.07 ; Abdominal pain, g eneralizedG Iveth Ugalde, Supervisory Crusher Setter (ASCP) Gonococcus, Nuc. Acid Amp Negative (Normal) HPV, high-risk Negative (Normal) Comments: This high-risk HPV test detects thirteen high-risk types(16/18/31/33/35/39/45/51/52/56/58/59/68) without differentiation. . Note: PAPSMR (Normal) Comments: The Pap smear is a screening test designed to aid in the detection ofpremalignant and malignant conditions of the uterine cervix. It is not adiagnostic procedure and should not be used as the sole mean s of detectingcervical cancer. Both false-positive and false-negative reports do occur. . :08 Genital Culture, Routine Comments: PERFORMED BY: [facility]63AskuityFormerly [facility] [id number] Genital Culture, Routine Final report (Normal) Result 1 RGF (Normal) Comments: Routine genital gerard. :08 Vaginitis/Vaginosis, DNA Probe Comments: Clinical Information: SRC:VA PERFORMED BY: [id number] [facility]Former[facility] [id number] Nathaniel species Negative (Normal) Gardnerella vaginalis Negative (Normal) Trichomonas vaginalis Negative (Normal) 8-Lyn-396248:5 C-REACTIVE PROT 5.99 mg/L (Normal) Range: 0.0-6.0 0 Comments: Test performed using the Dimension C-Reactive ProteinExtended Range assay method. This assay meets the AHA/CDC 2003 recommendations fordetermining patients at high risk for cardiovasculardisease. Reference: High risk CRP >3.0 mg/L 0-Gxe-339993:50 CBCD,SMEAR DIFF BAND 4 % (Normal) Range: 0-5 CELLS COUNTED 100 (Normal) HCT 43.2 % (Normal) Range: 37-47 HGB 15.3 g/dL (Normal) Range: 12.0-16.0 LYMPH 24 % (Normal) Range: 19-41 MCH 32.2 pg (Abnormal) Range: 27.0-32.0 MCHC 35.5 g/dL (Normal) Range: 32-36 MCV 90.7 fL (Normal) Range: 81-99 MONOCYTE 9 % (Normal) Range: 0-10 PLT 305 K/mm3 (Normal) Range: 150-450 PLT EST SeeNote (Normal) Comments: Result: ADEQUATE RBC 4.77 {M/mm3} (Normal) Range: 4.2-5.4 RDW 12.5 % (Normal) Range: 11.6-14.6 RED CELL MORPH SeeNote {NORMAL} (Normal) Comments: Result: NORM C+C SEGS 63 % (Normal) Range: 47-70 WBC 7.2 K/mm3 (Normal) Range: 4.4-11.0 :50 COMP METABOLIC A/G 1.1 {RATIO} (Normal) Range: 0.9-2.4 ALB 3.8 g/dL (Normal) Range: 3.4-5.0 ALK P 107 U/L (Normal) Range: 50-136 ALT 35 U/L (Normal) Range: 30-65 AST 14 U/L (Abnormal) Range: 15-37 BUN 13 mg/dL (Normal) Range: 7-18 BUN/CRE 16.3 {RATIO} (Normal) Range: 10-20 CA 9.1 mg/dL (Normal) Range: 8.5-10.1 CL 107 mmol/L (Normal) Range: 98-107 CO2 26.9 mmol/L (Normal) Range: 21.0-32.0 CREAT,SERUM 0.8 mg/dL (Normal) Range: 0.6-1.0 EST GFR 80 mL/min (Normal) EST GFR - AA 97 mL/min (Normal) GAP 7 (Normal) Range: 5-15 GLOB 3.6 g/dL (Normal) Range: 2.7-4.2 GLU 97 mg/dL (Normal) Range: 70-110 K 4.4 mmol/L (Normal) Range: 3.5-5.1 NA 141 mmol/L (Normal) Range: 136-145 T BILI 1.04 mg/dL (Abnormal) Range: 0.00-1.00 T PROT 7.4 g/dL (Normal) Range: 6.4-8.2 :50 ESR SED RATE 11 mm/h (Normal) Range: 0-30 :53 ACUTE ABDOMEN, INC CHEST (MT) Radiology Report See Note (Normal) Comments: Exam Number: [id number] ACUTE ABDOMEN INCLUDING CHEST HISTORYEpigastric pain since yesterday. Vomiting. A PA view of the chest and supine and upright views of the abdomenwere obtained. No previous s tudies are available for comparison. Heart size is within normal limits. No acute infiltrate, area ofconsolidation, pleural effusion or vascular congestion is identified. On the upright view of the a bdomen, there is mild distention of a fewsmall bowel loops. The pattern is most suggestive of ileus. No freeair is identified. No abnormality of soft tissue outlines is seen.There are surgical clips in the right upper quadrant compatible withcholecystectomy. IMPRESSION1. Ileus. Reported By: CASEY WARD M.D. :49 HGB A1C 5.7 % (Normal) Range: 4.0-6.3 Comments: The methodology of Hgb A1C has changed to Sara BehringDimension RXL. No significant changes in patientresults are expected. The reference range remains the same. :49 LIPID CHOL 166 mg/dL (Normal) Comments: <200 mg/dL Desirable 200-240 mg/dL Borderline >240 mg/dL High Risk HDL 37 mg/dL (Normal) Comments: Reference Range HDL <40 mg/dL Low HDL Cholesterol HDL >or= 60 mg/dL High HDL Cholesterol LDL 94 mg/dL (Normal) Range: 0-130 TRIG 173 mg/dL (Normal) Comments: Serum Triglycerides Reference Interval Normal <150 mg/dL Borderline high 150 - 199 mg/dL High 200 - 499 mg/dL Very High > or = 500 mg/dL VLDL 35 mg/dL (Normal) Range: 5-40 :11 Thin prep Pap Comments: Source.............Cervical;EndocervicalLMP / Prev Treat...GDR=[id number]. of containers..01 CYTYC Thin Prep VialPATIENT NOT FASTINGClinical Information: ADD [id number] PERFORMED BY: [employer] ([id number]) [address] [id number] . . (Normal) DIAGNOSIS: SPRCS (Normal) Comments: NEGATIVE FOR INTRAEPITHELIAL LESION AND MALIGNANCY.Satisfactory for evaluation. Endocervical and/or squamous metaplasticcells (endocervical component) are present.Khalif Reeves Cytotechjulienne gist (ASCP) Note: PAPSMR (Normal) Comments: The Pap smear is a screening test designed to aid in the detection ofpremalignant and malignant conditions of the uterine cervix. It is not adiagnostic procedure and should not be used as the sole mean s of detectingcervical cancer. Both false-positive and false-negative reports do occur. .The HPV DNA reflex criteria were not met with this specimen resulttherefore, no HPV testing was performed. . 70-Njq-44948:28 BILAT SCRN DIGITAL & CAD Radiology Report See Note (Normal) Comments: Exam Number: [id number] BILATERAL SCREENING DIGITAL MAMMOGRAM CLINICAL INFORMATIONScreening. Bilateral digital mammography was performed as a screening exam. Standard CC and MLO views were ob tained. The current study is compared to the previous examination of January 11, 2007. FINDINGSThere has been no significant change in the overall appearance of thebreasts. There are scattered trabecular elements an d some residualfibroglandular elements slightly more prominent on the right than theleft. No dominant masses are evident and no suspicious groups ofcalcifications are seen. There are no areas of spi culation ordistortion are found. There are a few punctate benign calcifications. IMPRESSION1. Stable appearance of the breasts with no specific mammographic evidence of malignancy. Annual mammograp hy is recommended.2. BIRADS 2 with 1-year followup. A letter regarding the results has been sent to the patient. This interpretation was rendered by a radiologist certified underthe Mammography Quality Standards Act of 1992 (MQSA). The mammogramswere also examined with computer- aided detection software([employer] Reported By: BALBIR GATICA M.D. Plan of Care Name Dates Details Instructions Sinusitis, acute : Eprescribed prescriptions (G8553) Indication: Sinusitis, acute Laryngitis, acute : Eprescribed prescriptions (G8553) Indication: Laryngitis, acute BMI 40.0-44.9, adult : Eprescribed prescriptions (G8553) Indication: BMI 40.0-44.9, adult Diabetes mellitus type II, controlled, with no complications : Eprescribed prescriptions (G8553) Indication: Diabetes mellitus type II, controlled, with no complications Current nonsmoker (Renamed from Current non-smoker) : Eprescribed prescriptions (G8553) Indication: Current nonsmoker (Renamed from Current non-smoker) Screening mammogram, encounter for : Mammogram *: gynecological health Indication: Screening mammogram, encounter for BMI 45.0-49.9, adult : Eprescribed prescriptions (G8553) Indication: BMI 45.0-49.9, adult Dysthymic : Eprescribed prescriptions (G8553) Indication: Dysthymic Dysthymic : Eprescribed prescriptions (G8553) Indication: Dysthymic Dysthymic : Eprescribed prescriptions (G8553) Indication: Dysthymic Dysthymic : Eprescribed prescriptions (G8553) Indication: Dysthymic Diabetes mellitus type II, controlled, with no complications : Eprescribed prescriptions (G8553) Indication: Diabetes mellitus type II, controlled, with no complications Hypokalemia : Follow up with DB Indication: Hypokalemia Hypokalemia : Reviewed Lab Indication: Hypokalemia Chest pain : Reviewed Lab Indication: Chest pain Diabetes mellitus type II, controlled, with no complications : Eprescribed prescriptions (G8553) Indication: Diabetes mellitus type II, controlled, with no complications Hypercholesteremia : *Cholesterol - Medication Side Effects Indication: Hypercholesteremia Pneumonia : Follow up monday Indication: Pneumonia Diabetes mellitus type II, controlled, with no complications : Diabetes Mellitus: Type 2 *: diabetes mellitus Indication: Diabetes mellitus type II, controlled, with no complications Bronchitis : *URI Treatment Indication: Bronchitis Bronchitis : *URI Symptoms Indication: Bronchitis Bronchitis : *Antibiotic Usage Education - Female Indication: Bronchitis Sinusitis : Sinusitis *: sinus infection Indication: Sinusitis Diabetes mellitus type II, controlled, with no complications : Diabetes Overview (Living with Diabetes): type 2 diabetes mellitus Indication: Diabetes mellitus type II, controlled, with no complications Need for prophylactic vaccination and inoculation against influenza : Flu (Influenza) *: flu shot Indication: Need for prophylactic vaccination and inoculation against influenza Diabetes mellitus type 2, uncontrolled, without complications : Diet, Exercise, and Wt loss Indication: Diabetes mellitus type 2, uncontrolled, without complications Diabetes mellitus type 2, uncontrolled, without complications : *Diabetes Education Indication: Diabetes mellitus type 2, uncontrolled, without complications Diabetes mellitus type 2, uncontrolled, without complications : Follow up in 4 weeks Indication: Diabetes mellitus type 2, uncontrolled, without complications Diabetes mellitus type 2, uncontrolled, without complications : Follow up in 2 weeks Indication: Diabetes mellitus type 2, uncontrolled, without complications Diabetes mellitus type 2, uncontrolled, without complications : *Diabetes Education Indication: Diabetes mellitus type 2, uncontrolled, without complications Bronchitis, acute : *Antibiotic Usage Education - Female Indication: Bronchitis, acute Well woman exam : SELF BREAST EXAM Indication: Well woman exam Well woman exam : *Well Female Maintenance (KF) Indication: Well woman exam Well woman exam : Pap/Pelvic/Bimanual/Rectal/Breast Exam was done. Indication: Well woman exam Sinusitis, acute : *URI Treatment Indication: Sinusitis, acute Sinusitis, acute : *URI Symptoms Indication: Sinusitis, acute Sinusitis, acute : *Antibiotic Usage Education - Female Indication: Sinusitis, acute Hypertension, benign : *Alexandre Inhibitor Side Effects Indication: Hypertension, benign Hypertension, benign : Diet, Exercise, and Wt loss Indication: Hypertension, benign Hypertension, benign : HTN/CAD Red Flags Indication: Hypertension, benign Abdominal pain, acute, generalized : FOLLOW UP IN 2 WEEKS Indication: Abdominal pain, acute, generalized WWV V70.0 : Colon Cancer Screening Indication: WWV V70.0 WWV V70.0 : Well Female Maintenance (KF) Indication: WWV V70.0 WWV V70.0 : Pap/Pelvic/Bimanual/Rectal/Breast Exam was done. Indication: WWV V70.0 WWV V70.0 : Colon Cancer Screening Indication: WWV V70.0 Planned Observations LIPOPROTEIN, BLD, BY NMR ([id number])Indication: Hypercholesteremia On: :44 Request HEPATIC FUNCTION PANEL ([id number])Indication: Hypercholesteremia On: 12-Xus-510750:44 Request Homocysteine, Plasma ([id number])Indication: MTHFR mutation On: 10-Kzz-304869:24 Request MICROALBUMIN: CREATININE RATIO ([id number]) AND ([id number])Indication: Hypertension, benign On: 14-Xdv-466728:01 Request URINALYSIS ([id number])Indication: Hypertension, benign On: 50-Zzh-436173:01 Request D-Dimer ([id number])Indication: Multiple pulmonary emboli On: 1-Gqz-494156:21 Request Rapid Strep Test, Office ([id number])Indication: Acute pharyngitis On: 93-Dir-410747:53 Request Homocysteine, Plasma ([id number])Indication: Elevated serum homocysteine level On: 26-Vak-374483:08 Request CBC W/AUTO DIFF WBC ([id number])Indication: Multiple pulmonary emboli On: 16-Uae-587823:45 Request Homocysteine, Plasma ([id number])Indication: Multiple pulmonary emboli On: :24 Request Comments: please add to labs drawn pre coag MTHFR ([id number])Indication: Multiple pulmonary emboli On: :24 Request Comments: please add to labs drawn pre coag TESTOSTERONE FREE ([id number])Indication: Elevated testosterone level in female On: :52 Request METABOLIC PANEL, COMPREHENSIVE ([id number])Indication: Hypercholesteremia On: :14 Request LIPOPROTEIN, BLD, BY NMR ([id number])Indication: Hypercholesteremia On: :14 Request Cortisol,Urinary Free 24- Hour Urine ([id number])Indication: Diabetes mellitus type II, controlled, with no complications On: :34 Request URINALYSIS ([id number])Indication: UTI (urinary tract infection) On: 77-Ilf-828525:04 Request Comments: recheck 10 days after ATB URINE DAVID CULTURE-IDENTIFICATN ([id number])Indication: UTI (urinary tract infection) On: 75-Kei-195838:03 Request Comments: recheck 10 days after ATB CBC with auto diff ([id number])Indication: Diabetes mellitus type II, controlled, with no complications On: 22-Vld-738615:14 Request LIPID PANEL ([id number])Indication: Hypercholesteremia On: 82-Fzn-959036:14 Request METABOLIC PANEL, COMPREHENSIVE ([id number])Indication: Diabetes mellitus type II, controlled, with no complications On: 42-Vlx-906635:14 Request MICROALBUMIN: CREATININE RATIO ([id number]) AND ([id number])Indication: Diabetes mellitus type II, controlled, with no complications On: 21-Dud-138592:14 Request Hemoglobin Glyclated (HGB A1C) ([id number])Indication: Diabetes mellitus type II, controlled, with no complications On: 36-Zhn-046971:14 Request METABOLIC PANEL, COMPREHENSIVE ([id number])Indication: Diabetes mellitus type II, controlled, with no complications On: 01-Lyl-903188:20 Request LIPID PANEL ([id number])Indication: Diabetes mellitus type II, controlled, with no complications On: 78-Jif-999423:20 Request CBC W/AUTO DIFF WBC ([id number])Indication: Diabetes mellitus type II, controlled, with no complications On: 53-Dqz-072039:20 Request MICROALBUMIN: CREATININE RATIO ([id number]) AND ([id number])Indication: Diabetes mellitus type II, controlled, with no complications On: :59 Request METABOLIC PANEL, COMPREHENSIVE ([id number])Indication: Diabetes mellitus type II, controlled, with no complications On: :59 Request LIPID PANEL ([id number])Indication: Diabetes mellitus type II, controlled, with no complications On: : Request CBC WITH MANUAL DIFF ([id number])Indication: Diabetes mellitus type II, controlled, with no complications On: :59 Request MICROALBUMIN: CREATININE RATIO ([id number]) AND ([id number])Indication: Diabetes mellitus type 2, uncontrolled, without complications On: :10 Request PT (Prothrobim Time) ([id number])Indication: Pre-operative examination On: :13 Request PTT (Activated Partial Thromboplastin Time) ([id number])Indication: Pre-operative examination On: :13 Request CBC with manual diff ([id number])Indication: Pre-operative examination On: 24-Vcj-499487:13 Request Metabolic Panel, Basic ([id number])Indication: Pre-operative examination On: 64-Ydd-846800:11 Request Lipid Panel ([id number])Indication: Hypertension, benign On: :31 Request TSH ([id number])Indication: Hypertension, benign On: : Request URINALYSIS, W/ MICRO ([id number])Indication: Hypertension, benign On: : Request MICROALBUMIN: CREATININE RATIO ([id number]) AND ([id number])Indication: Hypertension, benign On: :31 Request METABOLIC PANEL, COMPREHENSIVE ([id number])Indication: Hypertension, benign On: : Request LIPOPROTEIN, BLD, BY NMR ([id number])Indication: Hypertension, benign On: : Request LIPID PANEL ([id number])Indication: Hypertension, benign On: : Request CBC WITH MANUAL DIFF ([id number])Indication: Hypertension, benign On: : Request thin prep ([id number]) (std testing)Indication: Abdominal pain, acute, generalized On: : Request NEISSERIA ([id number]) (THIN PREP OBTAINED)Indication: Abdominal pain, acute, generalized On: Request CHLAMYDIA ([id number]) (thin prep obtained)Indication: Abdominal pain, acute, generalized On: : Request INFCT ANTGN TRICH VAGIN DIRECT PRB ([id number])Indication: Abdominal pain, acute, generalized On: Request GARDNERELLA VAG, NUCLEIC ACID DIR PROBE ([id number])Indication: Abdominal pain, acute, generalized On: Request NATHANIEL, NUCLEIC ACID DIRECT PROBE ([id number])Indication: Abdominal pain, acute, generalized On: Request DAVID CULTURE-OTHER ([id number])Indication: Abdominal pain, acute, generalized On: Request CBC (Auto) ([id number])Indication: Abdominal pain, acute, generalized On: : Request Metabolic Panel, Comprehensive ([id number])Indication: Abdominal pain, acute, generalized On: : Request Urinalysis, Office ([id number])Indication: Abdominal pain, acute, generalized On: 80-Top-133699:44 Request C-REACTIVE PROTEIN ([id number])Indication: Epigastric pain On: 5-Gor-778924:24 Request SED RATE ERYTHROCYTE ([id number])Indication: Epigastric pain On: 0-Uln-847418:24 Request METABOLIC PANEL, COMPREHENSIVE ([id number])Indication: Epigastric pain On: :24 Request CBC WITH MANUAL DIFF ([id number])Indication: Epigastric pain On: 1-Xio-533291:23 Request Hemoglobin Glyclated (HGB A1C) ([id number])Indication: Hypoglycemia On: 7-Hrq-030567:21 Request Lipid Panel ([id number])Indication: Hypercholesteremia On: 5-Wvc-782033:21 Request Planned Encounters Medical; 3 Month FU - On: 26-Oct-2018 13:30 [facility] Carlotta Dennis CNP, CNP, Carlotta Dobson Planned Procedures Nuclear Stress Test/Stress On: 07-Aug-2018 Intent SPECT/TreadmillBy: Zeinab Reddy MD TDAP VACCINE >7 IM ([id number])By: Barry On: 18-Jul-2018 Intent Zeinab GONZALEZ US DOPPLER CAROTID BILATERAL On: 18-Jul-2018 Intent ([id number])By: Zeinab Reddy MD DEXA SCAN AXIAL SKELETON ([id number])By: On: 18-Jul-2018 Intent Zeinab Reddy MD SCREENING DIGITAL TOMOSYNTHESIS OF On: 18-Jul-2018 Intent BREAST ([id number])By: Zeinab Reddy MD SCREENING DIGITAL TOMOSYNTHESIS OF On: 13-Jul-2017 Intent BREAST ([id number])By: Zeinab Reddy MD EKG ([id number])By: Zeinab Reddy MD On: 21-Nov-2016 Intent Ultrasound - PelvisBy: Barry GONZALEZ, On: 24-Oct-2016 Intent Zeinab Varma Comments: copy to Dr. [email or web address]. CT - Abdomen (IV Contrast Needed)By: On: 26-Aug-2016 Intent Zeinab Reddy MD Comments: attention adrenals. Flu Vaccine (Quadrivalent) 44436Ng: On: 04-Jul-2016 Intent Zeinab Reddy MD US DOPPLER CAROTID BILATERAL On: 26-May-2016 Intent ([id number])By: Zeinab Reddy MD DEXA SCAN AXIAL SKELETON ([id number])By: On: 26-May-2016 Intent Zeinab Reddy MD BILATERAL MAMMOGRAMS ([id number])By: On: 26-May-2016 Intent Zeinab Reddy MD Nuclear Stress Test/Stress On: 05-Aug-2014 Intent SPECT/TreadmillBy: Jeannie LIANG, Alycia Jeannie LIANG, Carlotta Dobson Carotid DopplerBy: Zeinab Reddy MD On: 06-Jun-2014 Intent Comments: dizzy MRI - Brain (IV Contrast Needed)By: On: 06-Jun-2014 Intent Zeinab Reddy MD Holter Monitor 24 hrsBy: Barry GONZALEZ, On: 06-Jun-2014 Intent Zeinab Varma EKG ([id number])By: Zeinab Reddy MD On: 02-Jun-2014 Intent Comments: see scanned document of test done to see results reviewed today with patient MAMMOGRAM, SCREENING, BOTH BREASTS On: 21-Jan-2014 Intent ([id number])By: Zeinab Reddy MD Eprescribed prescriptions ([id number])By: On: 21-Jan-2014 Intent Zeinab Reddy MD Aerosol Treatment ([id number])By: Jacy On: 07-Nov-2013 Intent Tracy MURPHY Comments: after aerosol - more a/e less inspir noise but lots of exp noise Spirometry ([id number])By: Jacy MURPHY, On: 07-Nov-2013 Intent Tracy Comments: poor effort and difficult time diong with coughjing -- restriction shown Eprescribed prescriptions ([id number])By: On: 07-Nov-2013 Intent Tracy Louie DO Aerosol Treatment ([id number])By: Jeannie On: 24-Sep-2012 Intent Carlotta LIANG CNP, Mary E Eprescribed prescriptions ([id number])By: On: 12-Jun-2012 Intent Tania Ledbetter LPN IMMUNIZ ADMNIN, 1 VAC, SNGL/COMBO On: 12-Jun-2012 Intent ([id number])By: Tania Ledbetter LPN FLU VAC, SPLIT, >3 YEARS, INTRAMUSC On: 12-Jun-2012 Intent ([id number])By: Tania Ledbetter LPN ELECTROCARDIOGRAM, COMPLETE (ECG) On: 10-Apr-2012 Intent ([id number])By: Carlotta Dennis CNP, CNP, Mary E Spirometry ([id number])By: Valarie Quintanilla DO On: 10-Jan-2011 Intent A Comments: done km- good effort and curve- mod obst Solu -Medrol Injection, 125 mg On: 10-Jan-2011 Intent ([id number])By: Jessica Alba LPN Comments: 2ml given im rt hip lotobjk2 exp 1-14 Pulse Oximetry ([id number])By: Dwight MURPHY On: 10-Jan-2011 Intent Valarie A Comments: 96% Aerosol Treatment ([id number])By: Dwight MURPHY On: 10-Jan-2011 Intent Valarie A Comments: done with albuterol 0.83%pt tolerated well MAMMOGRAM, SCREENING, BOTH BREASTS On: 30-Nov-2010 Intent ([id number])By: Zeinab Reddy MD MAMMOGRAM, SCREENING, BOTH BREASTS On: 23-Jul-2009 Intent ([id number])By: Zeinab Reddy MD EKG ([id number])By: Zeinab Reddy MD On: 23-Jul-2009 Intent Radiology - Abdomen SeriesBy: Jacy On: 19-Dec-2008 Intent Tracy MURPHY LIBIA Injection , IM ([id number])By: Barry On: 21-Jan-2008 Intent Zeinab GONZALEZ MAMMOGRAM, SCREENING, BOTH BREASTS On: 21-Jan-2008 Intent ([id number])By: Zeinab Reddy MD Planned Medications INJECTION, METHYLPREDNISOLONE SODIUM SUCCINATE, UP TO 125 MG Ordered: 10-Jan-2011 Pending Jessica Alba LPN Instructions Name Dates Details Sinusitis, acute : How to access health information online Indication: Sinusitis, acute Sinusitis, acute : How to access health information online - Detail Indication: Sinusitis, acute Sinusitis, acute : Patient Instructions Indication: Sinusitis, acute BMI 40.0-44.9, adult : How to access health information online Indication: BMI 40.0-44.9, adult BMI 40.0-44.9, adult : How to access health information online - Detail Indication: BMI 40.0-44.9, adult BMI 40.0-44.9, adult : Patient Instructions Indication: BMI 40.0-44.9, adult Diabetes mellitus type II, controlled, with no complications : How to access health information online Indication: Diabetes mellitus type II, controlled, with no complications Diabetes mellitus type II, controlled, with no complications : How to access health information online - Detail Indication: Diabetes mellitus type II, controlled, with no complications Diabetes mellitus type II, controlled, with no complications : Patient Instructions Indication: Diabetes mellitus type II, controlled, with no complications BMI 45.0-49.9, adult : How to access health information online Indication: BMI 45.0-49.9, adult BMI 45.0-49.9, adult : How to access health information online - Detail Indication: BMI 45.0-49.9, adult BMI 45.0-49.9, adult : Patient Instructions Indication: BMI 45.0-49.9, adult BMI 45.0-49.9, adult : How to access health information online Indication: BMI 45.0-49.9, adult BMI 45.0-49.9, adult : How to access health information online - Detail Indication: BMI 45.0-49.9, adult BMI 45.0-49.9, adult : Patient Instructions Indication: BMI 45.0-49.9, adult Laryngitis, acute : How to access health information online Indication: Laryngitis, acute Laryngitis, acute : How to access health information online - Detail Indication: Laryngitis, acute Laryngitis, acute : Patient Instructions Indication: Laryngitis, acute Acute pharyngitis : How to access health information online Indication: Acute pharyngitis Acute pharyngitis : How to access health information online - Detail Indication: Acute pharyngitis Acute pharyngitis : Patient Instructions Indication: Acute pharyngitis BMI 40.0-44.9, adult : How to access health information online Indication: BMI 40.0-44.9, adult BMI 40.0-44.9, adult : How to access health information online - Detail Indication: BMI 40.0-44.9, adult BMI 40.0-44.9, adult : Patient Instructions Indication: BMI 40.0-44.9, adult BMI 40.0-44.9, adult : How to access health information online Indication: BMI 40.0-44.9, adult BMI 40.0-44.9, adult : How to access health information online - Detail Indication: BMI 40.0-44.9, adult BMI 40.0-44.9, adult : Patient Instructions Indication: BMI 40.0-44.9, adult BMI 40.0-44.9, adult : How to access health information online Indication: BMI 40.0-44.9, adult BMI 40.0-44.9, adult : How to access health information online - Detail Indication: BMI 40.0-44.9, adult BMI 40.0-44.9, adult : Patient Instructions Indication: BMI 40.0-44.9, adult BMI 40.0-44.9, adult : How to access health information online Indication: BMI 40.0-44.9, adult BMI 40.0-44.9, adult : How to access health information online - Detail Indication: BMI 40.0-44.9, adult BMI 40.0-44.9, adult : Patient Instructions Indication: BMI 40.0-44.9, adult Pre-operative examination : How to access health information online Indication: Pre-operative examination Pre-operative examination : How to access health information online - Detail Indication: Pre-operative examination Pre-operative examination : Patient Instructions Indication: Pre-operative examination Diabetes mellitus type II, controlled, with no complications : How to access health information online Indication: Diabetes mellitus type II, controlled, with no complications Diabetes mellitus type II, controlled, with no complications : How to access health information online - Detail Indication: Diabetes mellitus type II, controlled, with no complications Diabetes mellitus type II, controlled, with no complications : Patient Instructions Indication: Diabetes mellitus type II, controlled, with no complications Current nonsmoker (Renamed from Current non-smoker) : How to access health information online Indication: Current nonsmoker (Renamed from Current non-smoker) Current nonsmoker (Renamed from Current non-smoker) : How to access health information online - Detail Indication: Current nonsmoker (Renamed from Current non-smoker) Current nonsmoker (Renamed from Current non-smoker) : Patient Instructions Indication: Current nonsmoker (Renamed from Current non-smoker) Well woman exam (Renamed from Encounter for well woman exam) : How to access health information online Indication: Well woman exam (Renamed from Encounter for well woman exam) Well woman exam (Renamed from Encounter for well woman exam) : How to access health information online - Detail Indication: Well woman exam (Renamed from Encounter for well woman exam) Well woman exam (Renamed from Encounter for well woman exam) : Patient Instructions Indication: Well woman exam (Renamed from Encounter for well woman exam) Sinusitis : How to access health information online Indication: Sinusitis Sinusitis : How to access health information online - Detail Indication: Sinusitis Sinusitis : Patient Instructions Indication: Sinusitis Diabetes mellitus type II, controlled, with no complications : How to access health information online Indication: Diabetes mellitus type II, controlled, with no complications Diabetes mellitus type II, controlled, with no complications : How to access health information online - Detail Indication: Diabetes mellitus type II, controlled, with no complications Diabetes mellitus type II, controlled, with no complications : Patient Instructions Indication: Diabetes mellitus type II, controlled, with no complications Dysthymic : Patient Instructions Indication: Dysthymic Dysthymic : Patient Instructions Indication: Dysthymic Dysthymic : Patient Instructions Indication: Dysthymic Dysthymic : Patient Instructions Indication: Dysthymic Diabetes mellitus type II, controlled, with no complications : How to access health information online Indication: Diabetes mellitus type II, controlled, with no complications Diabetes mellitus type II, controlled, with no complications : How to access health information online - Detail Indication: Diabetes mellitus type II, controlled, with no complications Diabetes mellitus type II, controlled, with no complications : Patient Instructions Indication: Diabetes mellitus type II, controlled, with no complications Chest pain : Patient Instructions Indication: Chest pain Diabetes mellitus type II, controlled, with no complications : How to access health information online - Detail Indication: Diabetes mellitus type II, controlled, with no complications Diabetes mellitus type II, controlled, with no complications : Patient Instructions Indication: Diabetes mellitus type II, controlled, with no complications Fever and chills : Patient Instructions Indication: Fever and chills Diabetes mellitus type II, controlled, with no complications : Patient Instructions Indication: Diabetes mellitus type II, controlled, with no complications Sinusitis : Patient Instructions Indication: Sinusitis Diabetes mellitus type II, controlled, with no complications : Patient Instructions Indication: Diabetes mellitus type II, controlled, with no complications Need for prophylactic vaccination and inoculation against influenza : Patient Instructions Indication: Need for prophylactic vaccination and inoculation against influenza Encounters Phone Encounter On: 07-Aug-2018 15:30 Encounter Diagnosis: Coronary artery disease, Chest pain at rest End: 14-Aug-2018 9:07 [facility] Phone Encounter On: 19-Jul-2018 10:26 Encounter Diagnosis: Carotid stenosis End: 19-Jul-2018 10:28 [facility] Office Visit On: 18-Jul-2018 14:03 Encounter Diagnosis: Well woman exam (Renamed from Encounter for well woman exam), Family history of cardiovascular disease, Elevated testosterone level in female, PCO (polycystic ovaries), Sleep disorder, Irritable bowel syndrome, End: 18-Jul-2018 19:37 Vitamin D deficiency, Carotid stenosis, Ocular migraine, MTHFR mutation, White matter changes, DAVID on CPAP, Elevated serum homocysteine level, Family history of cancer, Allergic rhinitis, mild, Glaucoma, congenital, Osteopenia, Diabetes mellitus type II, controlled, with no complications, Hypercholesteremia, Heartburn, Current nonsmoker (Renamed from Current non-smoker), Depression, unspecified depression type, Mild persistent extrinsic asthma without complication, History of pulmonary embolism, Multiple pulmonary emboli, Hiatal hernia, History of infertility, female, Hypertension, benign, Obesity, Splinter hemorrhage of fingernail, Screening mammogram, encounter for, Postmenopausal (Renamed from Post-menopausal), Colon cancer screening (Renamed from Screening for colon cancer), Need for Tdap vaccination (Renamed from Need for xnmodvrekf-ufzyfon-ieefymiub (Tdap) vaccine, adult/adolescent) [facility] Office Visit On: 09-Jul-2018 10:24 Encounter Reason: Cold Symptoms - Symptoms include nasal congestion, runny nose, postnasal drainage, hoarseness, productive cough, facial pressure and facial pain. Onset was week(s) ago. The patient describes this as unc End: 09-Jul-2018 10:46 hanged. Associated symptoms include wheezing, shortness of breath and chills, while associated symptoms do not include fever. Note for Cold symptoms: blowing out yellow. trying OTC for 2 weeks now in chest.. not had allergies. ache in lower back. Encounter Diagnosis: Current nonsmoker (Renamed from Current non-smoker), Sinusitis, acute [facility] Lab Order On: 14-Jun-2018 15:00 Encounter Diagnosis: Hypertension, benign End: 14-Jun-2018 15:02 [facility] Office Visit On: 06-Mar-2018 7:59 Encounter Reason: Follow up acute care visit - The patient feeling better since last seen and improving. Patient has been compliant with instructions. Current medication use: no side effects, compliant with dosing regime End: 06-Mar-2018 8:34 n and considered effective by patient. Patient sleeps 7 hours per night. Impact of disease: emotional impact-mild. Nutrition: balanced diet and supplemental vitamins. The medical issues the patient is following up for include depression. Encounter Diagnosis: BMI 40.0-44.9, adult, Current nonsmoker (Renamed from Current non-smoker), Depression, unspecified depression type, Obesity [facility] Office Visit On: 01-Feb-2018 13:34 Encounter Reason: Follow up for chronic medical issues - The patient feels well with minor complaints and has decreased energy level. Patient has been compliant with instructions. Current medication use: no side effects End: 01-Feb-2018 14:33 and compliant with dosing regimen. Patient sleeps 7 hours per night. Impact of disease: emotional impact-moderate. Nutrition: balanced diet and supplemental vitamins. The medical issues the patient is f ollowing up for include blood sugar issues, cardiac issues, depression, gastric reflux, high blood pressure, high cholesterol, osteoporosis/osteopenia and other (IBS, DAVID, MTHFR mutation, obesity, hx. of PE, glaucoma).Encounter Diagnosis: BMI 40.0-44.9, adult, Diabetes mellitus type II, controlled, with no complications, Current nonsmoker (Renamed from Current non-smoker), Obesity, White matter changes, PCO (polycystic ovaries), Ocular migraine, Mild persistent extrinsic asthma without complication, Elevated serum homocysteine level, Multiple pulmonary emboli, DAVID on CPAP, MTHFR mutation, Family history of cancer, Irritable bowel syndrome, Elevated testosterone level in female, Family history of cardiovascular disease, Sleep disorder, Osteopenia, Carotid stenosis, Hypercholesteremia, Vitamin D deficiency, Depression, unspecified depression type, Hypertension, benign, Glaucoma, congenital, Hiatal hernia, Heartburn, Allergic rhinitis, mild, History of infertility, female, Splinter hemorrhage of fingernail, BMI 45.0-49.9, adult, Right knee pain, Hematuria, Laryngitis, acute, History of pulmonary embolism [facility] Office Visit On: 21-Nov-2017 10:22 Encounter Reason: Follow up acute care visit - The patient feeling better since last seen and improving. Patient has been compliant with instructions. Current medication use: no side effects, compliant with dosing regime End: 21-Nov-2017 11:07 n and considered effective by patient. Patient sleeps 8 hours per night. Impact of disease: emotional impact-moderate. Nutrition: balanced diet and supplemental vitamins. The medical issues the patient is following up for include depression (anxiety).Encounter Diagnosis: BMI 45.0-49.9, adult, Current nonsmoker (Renamed from Current non-smoker), Depression, unspecified depression type, Diabetes mellitus type II, controlled, with no complications, Vitamin D deficiency, Hypertension, benign [facility] Office Visit On: 16-Oct-2017 10:16 Encounter Reason: Follow up for chronic medical issues - The patient feels well with minor complaints. Patient has been compliant with instructions. Current medication use: no side effects and compliant with dosing regim End: 16-Oct-2017 11:05 en. Patient sleeps 7 hours per night. Impact of disease: emotional impact-mild. Nutrition: balanced diet and supplemental vitamins. The medical issues the patient is following up for include asthma, blo od sugar issues, cardiac issues, depression, gastric reflux, high blood pressure, high cholesterol, osteoporosis/osteopenia and other (MTHFR, hx. PE, obesity, DAVID, glaucoma).Encounter Diagnosis: Current nonsmoker (Renamed from Current non-smoker), BMI 45.0-49.9, adult, Diabetes mellitus type II, controlled, with no complications, PCO (polycystic ovaries), Vitamin D deficiency, Ocular migraine, White matter changes, Obesity, Hypertension, benign, MTHFR mutation, Elevated testosterone level in female, Irritable bowel syndrome, Family history of cancer, Family history of cardiovascular disease, DAVID on CPAP, Osteopenia, Sleep disorder, Glaucoma, congenital, Heartburn, Laryngitis, acute, Multiple pulmonary emboli, Mild persistent extrinsic asthma without complication, Hiatal hernia, Hypercholesteremia, Carotid stenosis, History of infertility, female, Depression, unspecified depression type, Allergic rhinitis, mild, Elevated serum homocysteine level, Splinter hemorrhage of fingernail, Hematuria, BMI 40.0-44.9, adult, Right knee pain [facility] Office Visit On: 22-Aug-2017 10:47 Encounter Reason: Follow up Meds - The patient feels well with no complaints (doing well with the wellbutrin and cholestrol med). Patient has been compliant with instructions. Current medication use: experiencing side ef End: 22-Aug-2017 11:40 fects (indigestion), compliant with dosing regimen and considered effective by patient., [ADDITIONAL REASON] Follow up acute care visit - The patient does not feel well and has decreased energy level. Patient has been compliant with instructions. Encounter Diagnosis: Depression, unspecified depression type, Laryngitis, acute, BMI 40.0-44.9, adult, Heartburn, Glaucoma, congenital, Hiatal hernia, Mild persistent extrinsic asthma without complication, Multiple pulmonary emboli [facility] Office Visit On: 03-Aug-2017 10:49 Encounter Reason: Bronchitis, Acute, Adult - Symptoms include productive cough and fatigue. Associated symptoms include postnasal drainage and headache. Note for Acute bronchitis: started wtih cough 3 weeksd ago and in End: 03-Aug-2017 11:25 to chest and now laryngitis. not feel in chest anymore. throat sore mild. not still sore gone now. if try to push voice throat deep hurts. wheezing annd use inhaler bid.Encounter Diagnosis: BMI 40.0-44.9, adult, Acute pharyngitis, Current nonsmoker (Renamed from Current non-smoker), Laryngitis, acute [facility] Office Visit On: 13-Jul-2017 6:24 Encounter Diagnosis: White matter changes, Osteopenia, DAVID on CPAP, Hypercholesteremia, Well woman exam (Renamed from Encounter for well woman exam), Multiple pulmonary emboli, Ocular migraine, Family history of cardiovascular disease, End: 18-Jul-2017 6:39 Carotid stenosis, Family history of cancer, Sleep disorder, Irritable bowel syndrome, Elevated testosterone level in female, Irregular heartbeat, Vitamin D deficiency, History of infertility, female, Depression, unspecified depression type, Hypertension, benign, MTHFR mutation, Diabetes mellitus type II, controlled, with no complications, Current nonsmoker (Renamed from Current non-smoker), Obesity, PCO (polycystic ovaries), Elevated serum homocysteine level, BMI 40.0-44.9, adult, Well woman exam, Screening mammogram, encounter for, Allergic rhinitis, mild, Mild persistent extrinsic asthma without complication, Right knee pain [facility] Lab Order On: 08-Jun-2017 7:15 Encounter Diagnosis: Hypertension, benign End: 08-Jun-2017 7:17 [facility] Phone Encounter On: 31-May-2017 16:53 Encounter Diagnosis: MTHFR mutation End: 31-May-2017 16:56 [facility] Phone Encounter On: 26-May-2017 11:40 Encounter Diagnosis: Right knee pain End: 26-May-2017 11:43 [facility] Office Visit On: 25-May-2017 13:09 Encounter Reason: Knee Pain - This condition occurred without any known injury. The injury involved the right knee. This occurred 6 day(s) ago. The last clinic visit was 4 day(s) ago. Symptoms include knee pain, stiffnes End: 25-May-2017 14:00 s, decreased range of motion, instability, difficulty bearing weight and difficulty ambulating. Symptoms are located in the right medial knee. There is no radiation. The patient describes the pain as sh stevie, dull, aching, stinging and throbbing. Onset was sudden.Encounter Diagnosis: BMI 40.0-44.9, adult, Current nonsmoker (Renamed from Current non-smoker), Right knee pain [facility] Phone Encounter On: 12-May-2017 7:36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 examination, unspecified (V72.84), HYPERTENSION (401.1), Depression/Anxiety (300.4), Irritable bowel syndrome (564.1), Obesity (278.00), Impaired fasting glucose (790.21) [facility] Office Visit On: 10-Jan-2011 13:07 Encounter Reason: Upper Respiratory Infection (URI) - The last clinic visit was 1 week(s) ago. No changes in management were made at the last visit. Symptoms include nasal congestion, runny nose, hoarseness, productive c End: 10-Jan-2011 13:59 ough, wheezing and general malaise, while symptoms do not include sore throat, scratchy throat, dry cough, fever or chills. Onset was sudden 1 week(s) ago. The symptoms occur constantly. The patient marii cribes this as moderate in severity and unchanged. Symptoms are exacerbated by activity. Symptoms are not relieved by cool environment, cough suppressants, inhaler use, lying down or non-prescription co ld medication. Associated symptoms include headache, shortness of breath and clear sputum, while associated symptoms do not include ear pain, ear plugging, nausea or vomiting.Encounter Diagnosis: Bronchitis,Acute (466.0), Wheezing (786.07) [facility] Office Visit On: 30-Nov-2010 14:58 Encounter Reason: Well Women Exam - The patient does not feel well and has decreased energy level. Pap smear: date of last pap: (). Contraceptive history: The patient is not using any method of contraception at [facility] End: 30-Nov-2010 15:39 s time. Patient does not exercise. The patient's libido is absent. The patient reports that she performs monthly self breast exam. Calcium intake includes 2 serving(s) milk daily. Menstruation: Last menstrual period date: (10 years ago ). Encounter Diagnosis: Well Woman Exam (V72.31) (Pap,Mammo,Routine Female) (Renamed from Well Woman V72.31 (p,m)), HYPERTENSION (401.1) [facility] Office Visit On: 21-Jul-2010 14:28 Encounter Reason: Sinus pain - The onset of the pain has been acute and has been occurring in a persistent pattern for 1 day. The course has been increasing in severity. The pain is characterized as pounding and a pressu End: 21-Jul-2010 14:42 re sensation. The pain is described as being located in the frontal area. The symptoms have been associated with eye pain.Encounter Diagnosis: HYPERTENSION (401.1), SINUSITIS, ACUTE NOS (461.9) [facility] Office Visit On: 28-Dec-2009 16:58 Encounter Reason: Follow up for chronic medical issues - The patient does not feel well and has decreased energy level. Patient has been compliant with instructions. Current medication use: no side effects ,compliant wit End: 28-Dec-2009 17:34 h dosing regimen and considered effective by patient. Patient sleeps 7 hours per night. Impact of disease: emotional impact-moderate. Nutrition: balanced diet and supplemental vitamins. The medical issu es the patient is following up for include cardiac issues ,depression ,high blood pressure and other (obesity). Encounter Diagnosis: Impaired fasting glucose (790.21), Depression/Anxiety (300.4), Obesity (278.00), arthritis,unspecified (716.90), Hemorrhoids (455.8), Headache (784.0), Hypoglycemia (251.2), Sleep disorder (780.50), Unspecified essential hypertension (401.9), HYPERTENSION (401.1) [facility] Office Visit On: 24-Aug-2009 15:28 Encounter Reason: Follow up acute care visit - The patient feeling better since last seen and improving. Patient has been compliant with instructions. Current medication use: no side effects ,compliant with dosing regime End: 24-Aug-2009 15:51 n and considered effective by patient. Patient sleeps 7 hours per night. Impact of disease: emotional impact-mild. Nutrition: balanced diet and supplemental vitamins. The medical issues the patient is following up for include depression. Encounter Diagnosis: Depression/Anxiety (300.4), Chest pain (786.59) [facility] Annotation/Addendum On: 23-Jul-2009 14:27 Encounter Diagnosis: Impaired fasting glucose (790.21) End: 23-Jul-2009 14:28 [facility] Office Visit On: 23-Jul-2009 13:56 Encounter Reason: Lumps - The onset of the lumps has been gradual (2-3 months--first noticed over the summer, but seems to be getting bigger and more tender) and has been occurring in a persistent pattern for 3 months. T End: 23-Jul-2009 14:24 he course has been increasing. The lumps are described as moderate. Encounter Diagnosis: Chest pain (786.59), Depression/Anxiety (300.4) [facility] Office Visit On: 29-Jun-2009 16:53 Encounter Reason: Follow up acute care visit - The patient feeling better since last seen and improving. Patient has been compliant with instructions. Current medication use: no side effects ,compliant with dosing regime End: 29-Jun-2009 17:21 n and considered effective by patient. Patient sleeps 8 hours per night. Impact of disease: emotional impact-mild. Nutrition: balanced diet and supplemental vitamins. The medical issues the patient is following up for include depression. Encounter Diagnosis: Depression/Anxiety (300.4), Abdominal Pain,General (789.07), Hypoglycemia (251.2) [facility] Office Visit On: 08-Jun-2009 15:40 Encounter Reason: Abdominal pain - The onset of the pain has been variable and has been occurring in an intermittent pattern for 3 months. The course has been recurrent. The pain is described as a moderate burning and pr End: 08-Jun-2009 16:28 essure sensation. The pain is described as being located in the lower abdomen. The pain does not radiate. Note for Abdominal pain: now state had off and on for 1 year. think note more often. note more at night. sometimes diarrhea other times normal, no constipation. not relate diarrhea to pain. no blood in stool. feel hot inside but no fever. feel jittery. anxiety and depression worse over this last year. now getting hotflashes. on wellbutrin before. no menses for 6 years. vaginal discharge more for awhile. yellow brown. having more amount. no intercourse for 10 years. no change in urination or dysuria.Encounter Diagnosis: Abdominal Pain,General (789.07), Depression/Anxiety (300.4) [facility] Office Visit On: 19-Dec-2008 9:50 Encounter Reason: Abdominal pain - The onset of the pain has been sudden and has been occurring in an intermittent pattern for 3 days. The course has been recurrent. The pain is described as a moderate burning and sharp End: 19-Dec-2008 10:35 pain. The pain is described as being located in the entire abdomen. The pain does not radiate. The symptoms have no aggravating factors. The symptoms have no relieving factors. The symptoms have been associated with bloating and diarrhea. Encounter Diagnosis: Gastroenteritis (558.9), Epigastric pain (789.06) [facility] Office Visit On: 18-Feb-2008 16:22 Encounter Reason: Well Women Exam - The patient feels well with no complaints ,has good energy level and is sleeping well. Pap smear: history of abnormal pap and date of last pap: (2006 ). Contraceptive history: The los End: 18-Feb-2008 16:47 ent is not using any method of contraception at this time. Patient does not exercise. The patient's libido is absent. The patient reports that she performs monthly self breast exam. Calcium intake inclu marii 1 serving milk daily. Previous evaluations: colposcopy. Note for Well Women Exam: menopausal Encounter Diagnosis: WWV V70.0 [facility] Office Visit On: 21-Jan-2008 15:58 Encounter Reason: new patient female physical - Last seen between 6-12 months ago. General health: feels well with minor complaints ,has decreased energy level and is sleeping poorly. The patient's appetite is normal. Nu End: 21-Jan-2008 16:30 trition: normal/adequate. Exercises 0 days per week. Normal bowel and bladder habits. Safety measures include appropriate use of safety belts and home smoke detectors. Current emotional problems include anxiety ,depression and sleep disturbances. screening, mammography (2006 ) ,screening, Pap smear (2006 ) and screening, visual acuity (2005 Dr. Le wears glasses ). Encounter Diagnosis: Headache (784.0), Hemorrhoids (455.8), arthritis,unspecified (716.90), Obesity (278.00), Depression/Anxiety (300.4), Impaired fasting glucose (790.21), Hypoglycemia (251.2), EKG 4-08 (Renamed from Hypercholesteremia (272.0)), Sleep disorder (780.50), [facility] V70.0 [facility] Payers Aliza Huff; a guarantor
--- OUTSIDE RECORDS SUMMARY | 2018-10-10 11:12 | XMS RPT_ITS | Continuity of Care Document ---
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 [facility]6370 [facility] [id number] BY: [address] [id number] Prolactin 15.1 ng/mL (Normal) Range: 4.8-23.3 :24 PTT (Activated Partial Comments: PATIENT NOT FASTINGPERFORMED BY: [address] [id number] BY: [address] [id number] Thromboplastin Time) (18688) aPTT 26 {sec} (Normal) Range: 24-33 Comments: This test has not been validated for monitoring unfractionated heparintherapy. aPTT-based therapeutic ranges for unfractionated heparintherapy have not been established. For general guidelines onHeparin monitoring, refer to the [facility] Directory of Services. 4-Ogk-332031:26 Urinalysis, Office (30363) URINE UROBILINGN FANNY TIMED Normal mg/dL (Normal) UA - PROTEIN Negative mg/dL (Normal) UA - PH 6.0 (Normal) UA - BLOOD Hemolyzed Small (Normal) UA - SPECIFIC GRAVITY 1.030 (Abnormal) UA - KETONES Negative mg/dL (Normal) UA - BILIRUBIN Negative (Normal) UA - GLUCOSE Negative (Normal) :27 HgA1C , Office (81172) HgA1C , Office 5.9 % (Normal) Range: 4.6 - 7.1 :27 Blood Glucose , Office (60102) Blood Glucose , Office 109 (Normal) :03 IGP, Aptima HPV, Comments: Source.............Cervix;EndocervixNo. of containers..01 CYTYC Thin Prep VialPATIENT NOT FASTINGPERFORMED BY: =Enoch [address] PlazaCharleston [place] [id number] BY: WB LabCo rfx 16/18,[address] [id number] HPV Aptima Negative (Normal) Comments: This test [...] evaluation. No endocervical component is identified.Z01.419Margarita Reagan Numberer And Wirer (ASCP) :54 HEPATIC FUNCTION PANEL Comments: PATIENT WAS FASTINGPERFORMED BY: [employer] [id number] BY: LabLingohubHackettstown Medical CenterOxoqtz8665 [facility] [id number] (41913) ALT (SGPT) 15 [iU]/L (Normal) Range: 0-32 AST (SGOT) 10 [iU]/L (Normal) Range: 0-40 Alkaline Phosphatase, S 87 [iU]/L (Normal) Range: 39-117 Bilirubin, Direct 0.20 mg/dL (Normal) Range: 0.00-0.40 Bilirubin, Total 0.9 mg/dL (Normal) Range: 0.0-1.2 Albumin, Serum 4.1 g/dL (Normal) Range: 3.5-5.5 Protein, Total, Serum 7.2 g/dL (Normal) Range: 6.0-8.5 :54 LIPOPROTEIN, BLD, BY NMR Comments: PATIENT WAS FASTINGPERFORMED BY: [facility] [address] [place] [id number] BY: DESI [facility] Xvzvkx1542 [facility] [id number] (01853) LP-IR Score 82 (Abnormal) Comments: INSULIN RESISTANCE MARKER <--Insulin Sensitive Insulin Resistant--> Percentile in Reference PopulationInsulin Resistance ScoreLP-IR Score Low 25th 50th 75th High <27 27 45 63 >63LP-IR Score is inaccurate if patient is non-fasting. .The LP-IR score is a laboratory developed i [facility] that has beenassociated with insulin resistance and [...] were developed and their performance characteristicsdetermined by [employer]. These assays have not been cleared by [...] 2000 Very High > 2000 :54 CALCIFEDIOL (48560) Comments: PATIENT WAS FASTINGPERFORMED BY: Tifen.com1447 [facility] [id number] BY: Agito NetworksCrownpoint Healthcare FacilityGmmxme1937 [facility] [id number] Vitamin D, 25-Hydroxy 35.2 ng/mL (Normal) Range: 30.0-100.0 Comments: Vitamin D deficiency has been defined by the [place] ofA[facility] Medical Centercine and an Endocrine Society practice guideline as alevel of serum 25-OH vitamin D less than 20 ng/mL (1,2).The Endocrine Society went on to further define vitamin Dinsufficiency as a level between 21 and 29 ng/mL (2).1. IOM ([place] of Medicine). 2010. Dietary reference intakes for calcium and D. [place]: The National Academies Press.2. Ritika MF, Demetrio [place], Barbara PENNY, et al. Evaluation, treatment, and prevention of vitamin D deficiency: an Endocrine Society clinical practice guideline. JCEM. 2010; 96(7):1911-30. :54 TESTOSTERONE FREE (16206) Comments: PATIENT WAS FASTINGPERFORMED BY: [employer] Dfunbkjmgf8077 [facility] [id number] BY: Agito NetworksHackettstown Medical CenterTkpyvd0488 [facility] [id number] Free Testosterone(Direct) 5.6 pg/mL (Abnormal) Range: 0.0-4.2 :54 FSH AND LH (54614) Comments: PATIENT WAS FASTINGPERFORMED BY: Voyager TherapeuticsChristina Ville [address]907 [facility] [id number] BY: [facility]6370 [facility] [id number] FSH 25.4 m[iU]/mL (Normal) Comments: Follicular phase 3.5 - 12.5 Ovulation phase 4.7 - 21.5 Luteal phase 1.7 - 7.7 Postmenopausal 25.8 - 134.8 LH 40.2 m[iU]/mL (Normal) Comments: Follicular phase 2.4 - 12.6 Ovulation phase 14.0 - 95.6 Luteal phase 1.0 - 11.4 Postmenopausal 7.7 - 58.5 50-Bao-136468:54 DHEA-S (DEHYDROEPIANDROSTERONE Comments: PATIENT WAS FASTINGPERFORMED BY: [employer] [id number] BY: [place] [address]170 [facility] [id number] SULFATE) (09697) DHEA-Sulfate 119.9 ug/dL (Normal) Range: 29.4-220.5 0-Znf-683475:03 Thin prep Pap Comments: Source.............Cervix;EndocervixNo. of containers..01 CYTYC Thin Prep VialPATIENT NOT FASTINGPERFORMED BY: =G Lab[address] [id number] BY: [facility] (09296) (no STD rp [address] [id number] Information: [id number] testing) Age Gdln ACOG Testing 30-65 (Normal) 70-Pvj-61750:48 URINE DAVID CULTURE-IDENTIFICATN Comments: PATIENT NOT FASTINGPERFORMED BY: [place] [address]2170 [facility] [id number] Information: [id number] (93058) Result 1 MUG (Normal) Comments: Mixed urogenital flora2,000 Colonies/mL Urine Culture,Comprehensive Final report (Normal) 61-Nqc-81586:05 Urinalysis, Office (63455) UA - LEUKOCYTE ESTERASE Negative (Normal) UA - NITRITE Negative (Normal) URINE UROBILINGN FANNY TIMED Normal mg/dL (Normal) UA - PROTEIN Negative mg/dL (Normal) UA - PH 5 (Abnormal) UA - BLOOD Non Hemolyzed Trace (Normal) UA - SPECIFIC GRAVITY 1.030 (Abnormal) UA - KETONES Negative mg/dL (Normal) UA - BILIRUBIN Negative (Normal) UA - GLUCOSE Negative (Normal) 24-Vfv-345486:37 URINE DAVID CULTURE-IDENTIFICATN Comments: PATIENT NOT FASTINGPERFORMED BY: LabF[facility] [place]6370 [facility] [id number] Information: [id number] (77885) Antimicrobial MIHEAD (Normal) Comments: S = Susceptible; [...] pneumoniae (Abnormal) Urine Final report Culture,Comprehensive (Abnormal) 08-Fgn-952599:17 MICROALBUMIN: CREATININE RATIO Comments: PATIENT WAS FASTINGPERFORMED BY: Agito NetworksHackettstown Medical CenterRpluny3507 [facility] [id number] (79315) AND (19994) Microalb/Creat Ratio 6.1 {mg/g_creat} (Normal) Range: 0.0-30.0 Microalbumin, Urine 6.8 ug/mL (Normal) Range: 0.0-17.0 Comments: Effective January 25, 2016 the reference interval for Microalbumin, Urine will be changing to: Not Estab. Creatinine, Urine 111.5 mg/dL (Normal) Range: 15.0-278.0 Comments: Effective January 25, 2016 the reference interval for Creatinine, Urine will be changing to: Not Estab. 08-Pmy-920063:17 METABOLIC PANEL, COMPREHENSIVE Comments: PATIENT WAS FASTINGPERFORMED BY: LabCoHackettstown Medical CenterEonvtj3893 [facility] [id number] (73641) ALT (SGPT) 20 [iU]/L (Normal) Range: 0-32 [...] Glucose, Serum 118 mg/dL (Abnormal) Range: 65-99 17-Ast-341871:17 LIPID PANEL (91273) Comments: PATIENT WAS FASTINGPERFORMED BY: LabCoHackettstown Medical CenterSlchmv2609 [facility] [id number] LDL/HDL Ratio 3.4 {ratio_units} (Abnormal) Range: 0.0-3.2 [...] Cholesterol, Total 283 mg/dL (Abnormal) Range: 100-199 26-Abp-299842:17 CBC with auto diff Comments: PATIENT WAS FASTINGPERFORMED BY: LabCoHackettstown Medical CenterEqtjdz9427 [facility] [id number] Information: [id number] (37972) Immature Grans (Abs) 0.0 {x10E3/uL} (Normal) Range: [...] {x10E3/uL} (Normal) Range: 3.4-10.8 :27 Urinalysis, Office (85671) UA - LEUKOCYTE ESTERASE Trace (Normal) UA [...] GLUCOSE Negative (Normal) :21 HgA1C , Office (21156) HgA1C , Office 6.6 % (Normal) Range: 4.6 - 7.1 :23 HgA1C , Office (17044) HgA1C , Office 5.7 % (Normal) Range: 4.6 - 7.1 :23 Blood Glucose , Office (83456) Blood Glucose , Office 101 (Normal) :42 [...] CHOL 199 mg/dL (Normal) Comments: <200 mg/dL Swshqnjzf316-870 mg/dL Borderline>240 mg/dL High Risk 20-Uyt-257035:01 Renal function Panel Comments: PATIENT NOT FASTINGPERFORMED BY: Agito NetworksCrownpoint Healthcare FacilityQtolmn7540 [facility] [id number] Information: [id number] (56492) Albumin, Serum 4.5 g/dL (Normal) Range: 3.5-5.5 [...] Glucose, Serum 105 mg/dL (Abnormal) Range: 65-99 39-Tuv-265649:01 MAGNESIUM (72884) Comments: PATIENT NOT FASTINGPERFORMED BY: Voyager TherapeuticsFresenius Medical Care At [facility] [place]6370 [facility] [id number] Magnesium, Serum 1.8 mg/dL (Normal) Range: 1.6-2.6 68-Wbg-429617:54 C-Reactive Protein (13561) Comments: PATIENT NOT FASTINGPERFORMED BY: Voyager TherapeuticsFresenius Medical Care [facility] [place]6370 [facility] [id number] C-Reactive Protein, Quant 2.5 mg/L (Normal) Range: 0.0-4.9 37-Ltj-791925:54 Sed Rate Erythrocyte (53100) Comments: PATIENT NOT FASTINGPERFORMED BY: [facility]6370 [facility] [id number] Sedimentation Rate-Westergren 4 mm/h (Normal) Range: 0-40 02-Cjc-554873:54 T4, FREE (THYROXINE) (21445) Comments: PATIENT NOT FASTINGPERFORMED BY: [facility]6370 [facility] [id number] T4,Free(Direct) 1.32 ng/dL (Normal) Range: 0.82-1.77 65-Xoz-367058:54 TSH (35597) Comments: PATIENT NOT FASTINGPERFORMED BY: [place] [address]2170 [facility] [id number] Information: [id number] TSH 1.770 {uIU/mL} (Normal) Range: 0.450-4.500 :39 HgA1C , Office (90931) HgA1C , Office 5.8 % (Normal) Range: 4.6 - 7.1 :39 Blood Glucose , Office (56922) Blood Glucose , Office 96 (Normal) :23 LIPID PANEL (84826) Comments: PATIENT WAS FASTINGPERFORMED BY: [facility]6370 [facility] [id number] Information: [id number] LDL/HDL Ratio 2.6 {ratio_units} (Normal) Range: 0.0-3.2 LDL Cholesterol Calc 99 mg/dL (Normal) Range: 0-99 VLDL Cholesterol Jesús 41 mg/dL (Abnormal) Range: 5-40 HDL Cholesterol 38 mg/dL (Abnormal) Comments: According to ATP-III Guidelines, HDL-C >59 mg/dL is considered anegative risk factor for CHD. Triglycerides 204 mg/dL (Abnormal) Range: 0-149 Cholesterol, Total 178 mg/dL (Normal) Range: 100-199 :23 HEPATIC FUNCTION PANEL (66959) Comments: PATIENT WAS FASTINGPERFORMED BY: [facility]6370 [facility] [id number] ALT (SGPT) 23 [iU]/L (Normal) Range: 0-32 AST (SGOT) 19 [iU]/L (Normal) Range: 0-40 Alkaline Phosphatase, S 84 [iU]/L (Normal) Range: 39-117 Bilirubin, Direct 0.23 mg/dL (Normal) Range: 0.00-0.40 Bilirubin, Total 1.0 mg/dL (Normal) Range: 0.0-1.2 Albumin, Serum 4.4 g/dL (Normal) Range: 3.5-5.5 Protein, Total, Serum 7.2 g/dL (Normal) Range: 6.0-8.5 :42 MICROALBUMIN: CREATININE RATIO Comments: PATIENT WAS FASTINGPERFORMED BY: [employer] Ucsuhn9790 [facility] [id number] (36328) AND (17441) Creatinine, Urine 152.1 mg/dL (Normal) Range: 15.0-278.0 Microalb/Creat Ratio 23.3 {mg/g_creat} (Normal) Range: 0.0-30.0 Microalbumin, Urine 35.5 ug/mL (Abnormal) Range: 0.0-17.0 :42 METABOLIC PANEL, COMPREHENSIVE Comments: PATIENT WAS FASTINGPERFORMED BY: LikeliiHackettstown Medical CenterNkowzo3011 [facility] [id number] (57895) ALT (SGPT) 18 [iU]/L (Normal) Range: 0-32 [...] mg/dL (Abnormal) Range: 65-99 :42 LIPID PANEL (14652) Comments: PATIENT WAS FASTINGPERFORMED BY: Volof[facility] [id number] LDL/HDL Ratio 3.5 {ratio_units} (Abnormal) Range: 0.0-3.2 [...] MANUAL DIFF Comments: PATIENT WAS FASTINGPERFORMED BY: hubbuzz.com [facility] [id number] Information: [id number] (93021) Immature Grans (Abs) 0.0 {x10E3/uL} (Normal) Range: [...] 3.77-5.28 WBC 7.7 {x10E3/uL} (Normal) Range: 3.4-10.8 5-Vmi-508873:35 HgA1C , Office (57625) HgA1C , Office 6.4 % (Normal) Range: 4.6 - 7.1 2-Zfq-296855:34 Blood Glucose , Office (71565) Blood Glucose , Office 124 (Normal) 66-Vyf-901135:21 Rapid Flu (27313 x 2) Influenza A Ag negative (Normal) 11-Ufm-693079:23 MICROALBUMIN: CREATININE RATIO Comments: PATIENT NOT FASTINGPERFORMED BY: LabCoHackettstown Medical CenterVmucbk6141 [facility] [id number] (31152) AND (93378) Microalb/Creat Ratio 3.5 {mg/g_creat} (Normal) Range: 0.0-30.0 Microalbumin, Urine 5.6 ug/mL (Normal) Range: 0.0-17.0 Creatinine, Urine 158.0 mg/dL (Normal) Range: 15.0-278.0 57-Uaj-424423:23 METABOLIC PANEL, COMPREHENSIVE Comments: PATIENT NOT FASTINGPERFORMED BY: Voyager TherapeuticsFresenius Medical Care [facility] [place]6370 [facility] [id number] (01520) ALT (SGPT) 16 [iU]/L (Normal) Range: 0-32 [...] Glucose, Serum 101 mg/dL (Abnormal) Range: 65-99 91-Rma-029169:23 CBC WITH MANUAL DIFF Comments: PATIENT NOT FASTINGPERFORMED BY: [facility]6370 [facility] [id number] Information: [id number] (72873) Immature Grans (Abs) 0.0 {x10E3/uL} (Normal) Range: [...] Range: 4.0-10.5 :52 Blood Glucose , Office (39712) Blood Glucose , Office 116 (Normal) :52 HgA1C , Office (42935) HgA1C , Office 6.2 % (Normal) Range: 4.6 - 7.1 :37 Rapid Flu (26761 x 2) Influenza A Ag negative (Normal) :27 HgA1C , Office (18601) HgA1C , Office 5.7 % (Normal) Range: 4.6 - 7.1 :27 Blood Glucose , Office (43978) Blood Glucose , Office 98 (Normal) 85-Tjv-255862:18 CREATININE CLEARANCE Comments: PATIENT NOT FASTINGPERFORMED BY: LabCoHackettstown Medical CenterTrtmyr5696 [facility] [id number] Information: [id number] (65422) 24 HOUR Creatinine Clearance 104 mL/min (Normal) Range: 88-128 Comments: The above range is based on 1.73 square meter average body surfacearea. Creatinine, Ur 24hr 1169.7 {mg/24_hr} (Normal) Range: 800.0-1800.0 Creatinine, Urine 55.7 mg/dL (Normal) Range: 15.0-278.0 eGFR If Africn Am 99 mL/min/1.73 (Normal) eGFR If NonAfricn Am 86 mL/min/1.73 (Normal) Creatinine, Serum 0.78 mg/dL (Normal) Range: 0.57-1.00 41-Wwc-077657:43 LIPID PANEL (93698) Comments: PATIENT WAS FASTINGPERFORMED BY: LabCoHackettstown Medical CenterRbgxtn0382 [facility] [id number] Information: [id number] LDL/HDL Ratio 3.0 {ratio_units} (Normal) Range: 0.0-3.2 LDL Cholesterol Calc 145 mg/dL (Abnormal) Range: 0-99 VLDL Cholesterol Jesús 61 mg/dL (Abnormal) Range: 5-40 HDL Cholesterol 48 mg/dL (Normal) Comments: According to ATP-III Guidelines, HDL-C >59 mg/dL is considered anegative risk factor for CHD. Triglycerides 307 mg/dL (Abnormal) Range: 0-149 Cholesterol, Total 254 mg/dL (Abnormal) Range: 100-199 33-Nsp-658233:53 HgA1C , Office (02310) HgA1C , Office 6.8 % (Normal) Range: 4.6 - 7.1 :53 Blood Glucose , Office (27410) Blood Glucose , Office 111 (Normal) 96-Izd-673391:03 Thin prep Pap Comments: Source.............Cervical;EndocervicalNo. of containers..01 CYTYC Thin Prep VialPATIENT NOT FASTINGPERFORMED BY: Lab[address] [id number] Information: [id number] (10831) Note: PAPSMR (Normal) Comments: The Pap smear [...] is identified.V72.31 ; Routine gynecological examinationCyntyovany Nails Numberer And Wirer (ASCP) 25-Xqw-954095:06 HgA1C , Office (49902) HgA1C , Office 5.8 % (Normal) Range: 4.6 - 7.1 50-Cls-921112:06 Blood Glucose , Office (72290) Blood Glucose , Office 100 (Normal) 94-Pxi-529748:19 BILAT SCRN DIGITAL & CAD Radiology Report See Note (Normal) Comments: Exam Number: [id number] MAMMOGRAM, BILATERAL SCREENING DIGITAL AND CAD HISTORYRoutine [...] mammograms werealso examined with computer-aided detection software (Image[employer]enda, [employer] Reported By: CASEY WARD M.D. 2-Vch-280213:27 HgA1C , Office (91363) HgA1C , Office 5.7 % (Normal) Range: [...] T PROT 7.6 g/dL (Normal) Range: 6.4-8.2 15-Ttw-28468:11 ROUTINE UA BILIRUBIN URINE SeeNote (Normal) Comments: [...] 0.2 EU/dl (Normal) Range: 0.2 - 1.0 96-Tux-586576:09 Pap Lb, Ct-Ng, Comments: Source.............Cervical;EndocervicalNo. of containers..01 CYTYC Thin Prep VialClinical Information: [id number] PERFORMED BY: =Enoch Lab[address] [id number] HPV-hr . . (Normal) Chlamydia, Nuc. Acid Amp Negative (Normal) DIAGNOSIS: SPRCS (Normal) Comments: NEGATIVE FOR INTRAEPITHELIAL LESION AND MALIGNANCY.Satisfactory for evaluation. Endocervical and/or squamous metaplasticcells (endocervical component) are present.789.07 ; Abdominal pain, g eneralizedG Iveth Ugalde, Supervisory Numberer And Wirer (ASCP) Gonococcus, Nuc. Acid Amp Negative (Normal) [...] :08 Genital Culture, Routine Comments: PERFORMED BY: meets63StumpediaUNC Hospitals Hills[facility] Campus [id number] Genital Culture, Routine Final report (Normal) Result 1 RGF (Normal) Comments: Routine genital gerard. :08 Vaginitis/Vaginosis, DNA Probe Comments: Clinical Information: SRC:VA PERFORMED BY: eduplan[employer] KK6370 [place] SwapBeatsUNC Hospitals [facility] Campus [id number] Nathaniel species Negative (Normal) Gardnerella vaginalis Negative (Normal) Trichomonas vaginalis Negative (Normal) 5-Ydr-370727:5 C-REACTIVE PROT 5.99 mg/L (Normal) Range: 0.0-6.0 0 Comments: Test performed using the Dimension C-Reactive ProteinExtended Range assay method. This assay meets the AHA/CDC 2003 recommendations fordetermining patients at high risk for cardiovasculardisease. Reference: High risk CRP >3.0 mg/L 9-Cvl-293794:50 CBCD,SMEAR DIFF BAND 4 % (Normal) Range: [...] Report See Note (Normal) Comments: Exam Number: [id number] ACUTE ABDOMEN INCLUDING CHEST HISTORYEpigastric pain since [...] Thin prep Pap Comments: Source.............Cervical;EndocervicalLMP / Prev Treat...VQR=063414Bp. of containers..01 CYTYC Thin Prep VialPATIENT NOT FASTINGClinical Information: ADD [id number] PERFORMED BY: Voyager TherapeuticsCo (77630) [address] [id number] . . (Normal) DIAGNOSIS: SPRCS (Normal) Comments: [...] resulttherefore, no HPV testing was performed. . 84-Uur-87507:28 BILAT SCRN DIGITAL & CAD Radiology Report See Note (Normal) Comments: Exam Number: [id number] BILATERAL SCREENING DIGITAL MAMMOGRAM CLINICAL INFORMATIONScreening. Bilateral [...] mammogramswere also examined with computer- aided detection software(ImageOrions SystemserWebtrekk, Inc.). Reported By: BALBIR GATICA M.D. Plan [...] V70.0 Planned Observations LIPOPROTEIN, BLD, BY NMR (50340)Indication: Hypercholesteremia On: :44 Request HEPATIC FUNCTION PANEL (11421)Indication: Hypercholesteremia On: 25-Nwh-367451:44 Request Homocysteine, Plasma (44524)Indication: MTHFR mutation On: 77-Rad-048013:24 Request MICROALBUMIN: CREATININE RATIO (92673) AND (03686)Indication: Hypertension, benign On: 86-Lqo-841627:01 Request URINALYSIS (85239)Indication: Hypertension, benign On: 76-Tpx-932729:01 Request D-Dimer (01440)Indication: Multiple pulmonary emboli On: 9-Byg-298517:21 Request Rapid Strep Test, Office (84120)Indication: Acute pharyngitis On: 76-Phw-356582:53 Request Homocysteine, Plasma (56390)Indication: Elevated serum homocysteine level On: 99-Nvz-768557:08 Request CBC W/AUTO DIFF WBC (92032)Indication: Multiple pulmonary emboli On: 40-Pox-530888:45 Request Homocysteine, Plasma (41051)Indication: Multiple pulmonary emboli On: :24 Request Comments: please add to labs drawn pre coag MTHFR (91189)Indication: Multiple pulmonary emboli On: :24 Request Comments: please add to labs drawn pre coag TESTOSTERONE FREE (00491)Indication: Elevated testosterone level in female On: :52 Request METABOLIC PANEL, COMPREHENSIVE (29947)Indication: Hypercholesteremia On: :14 Request LIPOPROTEIN, BLD, BY NMR (28503)Indication: Hypercholesteremia On: :14 Request Cortisol,Urinary Free 24- Hour Urine (19572)Indication: Diabetes mellitus type II, controlled, with no complications On: :34 Request URINALYSIS (58020)Indication: UTI (urinary tract infection) On: 26-Hhj-554555:04 Request Comments: recheck 10 days after ATB URINE DAVID CULTURE-IDENTIFICATN (64289)Indication: UTI (urinary tract infection) On: 87-Wxb-769502:03 Request Comments: recheck 10 days after ATB CBC with auto diff (22212)Indication: Diabetes mellitus type II, controlled, with no complications On: 41-Zqz-283434:14 Request LIPID PANEL (08915)Indication: Hypercholesteremia On: 51-Ilp-987179:14 Request METABOLIC PANEL, COMPREHENSIVE (66505)Indication: Diabetes mellitus type II, controlled, with no complications On: 42-Toa-518562:14 Request MICROALBUMIN: CREATININE RATIO (49803) AND (77932)Indication: Diabetes mellitus type II, controlled, with no complications On: 24-Wbo-944884:14 Request Hemoglobin Glyclated (HGB A1C) (53009)Indication: Diabetes mellitus type II, controlled, with no complications On: 48-Rxr-393490:14 Request METABOLIC PANEL, COMPREHENSIVE (12923)Indication: Diabetes mellitus type II, controlled, with no complications On: 60-Vkf-908883:20 Request LIPID PANEL (03328)Indication: Diabetes mellitus type II, controlled, with no complications On: 17-Qzl-118087:20 Request CBC W/AUTO DIFF WBC (73032)Indication: Diabetes mellitus type II, controlled, with no complications On: 85-Nft-100555:20 Request MICROALBUMIN: CREATININE RATIO (29511) AND (30595)Indication: Diabetes mellitus type II, controlled, with no complications On: :59 Request METABOLIC PANEL, COMPREHENSIVE (13001)Indication: Diabetes mellitus type II, controlled, with no complications On: :59 Request LIPID PANEL (89325)Indication: Diabetes mellitus type II, controlled, with no complications On: : Request CBC WITH MANUAL DIFF (69885)Indication: Diabetes mellitus type II, controlled, with no complications On: :59 Request MICROALBUMIN: CREATININE RATIO ([id number]) AND ([id number])Indication: Diabetes mellitus type 2, uncontrolled, without complications On: :10 Request PT (Prothrobim Time) ([id number])Indication: Pre-operative examination On: :13 Request PTT (Activated Partial Thromboplastin Time) ([id number])Indication: Pre-operative examination On: :13 Request CBC with manual diff ([id number])Indication: Pre-operative examination On: 63-Rxt-485226:13 Request Metabolic Panel, Basic ([id number])Indication: Pre-operative examination On: 34-Qov-040451:11 Request Lipid Panel ([id number])Indication: Hypertension, benign On: :31 Request TSH ([id number])Indication: Hypertension, benign On: : Request URINALYSIS, W/ MICRO ([id number])Indication: Hypertension, benign On: : Request MICROALBUMIN: CREATININE RATIO ([id number]) AND ([id number])Indication: Hypertension, benign On: :31 Request METABOLIC PANEL, COMPREHENSIVE ([id number])Indication: Hypertension, benign On: : Request LIPOPROTEIN, BLD, BY NMR ([id number])Indication: Hypertension, benign On: : Request LIPID PANEL ([id number])Indication: Hypertension, benign On: : Request CBC WITH MANUAL DIFF ([id number])Indication: Hypertension, benign On: : Request thin prep ([id number]) (std testing)Indication: Abdominal pain, acute, generalized On: : Request NEISSERIA ([id number]) (THIN PREP OBTAINED)Indication: Abdominal pain, acute, generalized On: Request CHLAMYDIA ([id number]) (thin prep obtained)Indication: Abdominal pain, acute, generalized On: : Request INFCT ANTGN TRICH VAGIN DIRECT PRB ([id number])Indication: Abdominal pain, acute, generalized On: Request GARDNERELLA VAG, NUCLEIC ACID DIR PROBE ([id number])Indication: Abdominal pain, acute, generalized On: Request NATHANIEL, NUCLEIC ACID DIRECT PROBE ([id number])Indication: Abdominal pain, acute, generalized On: Request DAVID CULTURE-OTHER ([id number])Indication: Abdominal pain, acute, generalized On: Request CBC (Auto) ([id number])Indication: Abdominal pain, acute, generalized On: : Request Metabolic Panel, Comprehensive ([id number])Indication: Abdominal pain, acute, generalized On: : Request Urinalysis, Office ([id number])Indication: Abdominal pain, acute, generalized On: 48-Wes-149208:44 Request C-REACTIVE PROTEIN ([id number])Indication: Epigastric pain On: 7-Aps-562303:24 Request SED RATE ERYTHROCYTE ([id number])Indication: Epigastric pain On: 4-Eqw-533207:24 Request METABOLIC PANEL, COMPREHENSIVE ([id number])Indication: Epigastric pain On: :24 Request CBC WITH MANUAL DIFF ([id number])Indication: Epigastric pain On: 6-Uif-542684:23 Request Hemoglobin Glyclated (HGB A1C) ([id number])Indication: Hypoglycemia On: 8-Nwf-923221:21 Request Lipid Panel ([id number])Indication: Hypercholesteremia On: 3-Lno-549288:21 Request Planned Encounters Medical; 3 Month FU - On: 26-Oct-2018 13:30 [facility] Carlotta Dennis CNP, CNP, Carlotta Dobson Planned Procedures Nuclear Stress Test/Stress On: 07-Aug-2018 Intent SPECT/TreadmillBy: Zeinab Reddy MD TDAP VACCINE >7 IM ([id number])By: Barry On: 18-Jul-2018 Intent Zeinab GONZALEZ US DOPPLER CAROTID BILATERAL On: 18-Jul-2018 Intent ([id number])By: Zeinab Reddy MD DEXA SCAN AXIAL SKELETON ([id number])By: On: 18-Jul-2018 Intent Zeinab Reddy MD SCREENING DIGITAL TOMOSYNTHESIS OF On: 18-Jul-2018 Intent BREAST ([id number])By: Zeinab Reddy MD SCREENING DIGITAL TOMOSYNTHESIS OF On: 13-Jul-2017 Intent BREAST ([id number])By: Zeinab Reddy MD EKG ([id number])By: Zeinab Reddy MD On: 21-Nov-2016 Intent Ultrasound - PelvisBy: Barry GONZALEZ, On: 24-Oct-2016 Intent Zeinab Varma Comments: copy to Dr. mcdaniel. CT - Abdomen (IV Contrast Needed)By: On: 26-Aug-2016 Intent Zeinab Reddy MD Comments: attention adrenals. Flu Vaccine (Quadrivalent) 13061Iv: On: 04-Jul-2016 Intent Zeinab Reddy MD US DOPPLER CAROTID BILATERAL On: 26-May-2016 Intent ([id number])By: Zeinab Reddy MD DEXA SCAN AXIAL SKELETON ([id number])By: On: 26-May-2016 Intent Zeinab Reddy MD BILATERAL MAMMOGRAMS ([id number])By: On: 26-May-2016 Intent Zeinab Reddy MD Nuclear Stress Test/Stress On: 05-Aug-2014 Intent SPECT/TreadmillBy: Jeannie LIANG, Alycia Jeannie LIANG, Carlotta Dobson Carotid DopplerBy: Zeinab Reddy MD On: 06-Jun-2014 Intent Comments: dizzy MRI - Brain (IV Contrast Needed)By: On: 06-Jun-2014 Intent Zeinab Reddy MD Holter Monitor 24 hrsBy: Barry GONZALEZ, On: 06-Jun-2014 Intent Zeinab Varma EKG ([id number])By: Zeinab Reddy MD On: 02-Jun-2014 Intent Comments: see scanned document of test done to see results reviewed today with patient MAMMOGRAM, SCREENING, BOTH BREASTS On: 21-Jan-2014 Intent ([id number])By: Zeinab Reddy MD Eprescribed prescriptions ([id number])By: On: 21-Jan-2014 Intent Zeinab Reddy MD Aerosol Treatment ([id number])By: Jacy On: 07-Nov-2013 Intent Tracy MURPHY Comments: after aerosol - more a/e less inspir noise but lots of exp noise Spirometry ([id number])By: Jacy MURPHY, On: 07-Nov-2013 Intent Tracy Comments: poor effort and difficult time diong with coughjing -- restriction shown Eprescribed prescriptions ([id number])By: On: 07-Nov-2013 Intent Tracy Louie DO Aerosol Treatment ([id number])By: Jeannie On: 24-Sep-2012 Intent Carlotta LIANG CNP, Mary E Eprescribed prescriptions ([id number])By: On: 12-Jun-2012 Intent Tania Ledbetter LPN IMMUNIZ ADMNIN, 1 VAC, SNGL/COMBO On: 12-Jun-2012 Intent ([id number])By: Tania Ledbetter LPN FLU VAC, SPLIT, >3 YEARS, INTRAMUSC On: 12-Jun-2012 Intent ([id number])By: Tania Ledbetter LPN ELECTROCARDIOGRAM, COMPLETE (ECG) On: 10-Apr-2012 Intent ([id number])By: Carlotta Dennis CNP, CNP, Mary E Spirometry ([id number])By: Valarie Quintanilla DO On: 10-Jan-2011 Intent A Comments: done km- good effort and curve- mod obst Solu -Medrol Injection, 125 mg On: 10-Jan-2011 Intent ([id number])By: Jessica Alba LPN Comments: 2ml given im rt hip lotobjk2 exp 1-14 Pulse Oximetry ([id number])By: Dwight MURPHY On: 10-Jan-2011 Intent Valarie A Comments: 96% Aerosol Treatment ([id number])By: Dwight MURPHY On: 10-Jan-2011 Intent Valarie A Comments: done with albuterol 0.83%pt tolerated well MAMMOGRAM, SCREENING, BOTH BREASTS On: 30-Nov-2010 Intent ([id number])By: Zeinab Reddy MD MAMMOGRAM, SCREENING, BOTH BREASTS On: 23-Jul-2009 Intent ([id number])By: Zeinab Reddy MD EKG ([id number])By: Zeinab Reddy MD On: 23-Jul-2009 Intent Radiology - Abdomen SeriesBy: Jacy On: 19-Dec-2008 Intent Tracy MURPHY LIBIA Injection , IM ([id number])By: Barry On: 21-Jan-2008 Intent Zeinab GONZALEZ MAMMOGRAM, SCREENING, BOTH BREASTS On: 21-Jan-2008 Intent ([id number])By: Zeinab Reddy MD Planned Medications INJECTION, METHYLPREDNISOLONE [...] for Tdap vaccination (Renamed from Need for mbhiixjbzu-vosifpm-koqpuhgab (Tdap) vaccine, adult/adolescent) [facility] Office [...] Woman Exam (V72.31) (Pap,Mammo,Routine Female) (Renamed from Ampulse Woman V72.31 (p,m)), Depression/Anxiety (300.4), Hypercholesteremia, Elevated [...] not using any method of contraception at [facility] End: 30-Nov-2010 15:39 s time. Patient does [...] (Renamed from Hypercholesteremia (272.0)), Sleep disorder (780.50), [facility] V70.0 [facility] Payers Aliza Huff; a guarantor
--- OUTSIDE RECORDS SUMMARY | 2018-10-10 11:13 | XMS RPT_ITS | Continuity of Care Document ---
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 range): 2.0 - 3.0 Higher intensity therapeutic range 2.5 - 3.5 4-Kju-821528:24 ESTRADIOL (65325) Comments: PATIENT NOT FASTINGPERFORMED BY: [employer] [id number] BY: [employer] [id number] Estradiol 13.5 pg/mL (Normal) Comments: Adult Female: Follicular phase 12.5 - 166.0 Ovulation phase 85.8 - 498.0 Luteal phase 43.8 - 211.0 Postmenopausal <6.0 - 54.7 1st trimester 215.0 - & gt;4300.0 Girls (1-10 years) 6.0 - 27.0Roche ECLIA methodology 1-Qbz-527942:24 TESTOSTERONE FREE (20409) Comments: PATIENT NOT FASTINGPERFORMED BY: Magell[facility] Spine TechnologiesJessica Ville 9268570 [facility] [id number] BY: [employer] [id number] Free Testosterone(Direct) 3.8 pg/mL (Normal) Range: 0.0-4.2 9-Ikn-731693:24 CBC, Platelets & Auto Comments: PATIENT NOT FASTINGPERFORMED BY: [facility] Spine TechnologiesJefferson [facility] Hospital [facility])Obtwlz3709 [facility] [id number] BY: [employer] [id number] Diff (00684) Immature Grans (Abs) 0.0 {x10E3/uL} (Normal) Range: [...] 8.2 {x10E3/uL} (Normal) Range: 3.4-10.8 :24 PROLACTIN (68681) Comments: PATIENT NOT FASTINGPERFORMED BY: [address] [id number] BY: [address] [id number] Prolactin 15.1 ng/mL (Normal) Range: 4.8-23.3 6-Ohi-836116:24 PTT (Activated Partial Comments: PATIENT NOT FASTINGPERFORMED BY: [address] [id number] BY: [address] [id number] Thromboplastin Time) (22720) aPTT 26 {sec} (Normal) Range: 24-33 Comments: This test has not been validated for monitoring unfractionated heparintherapy. aPTT-based therapeutic ranges for unfractionated heparintherapy have not been established. For general guidelines onHeparin monitoring, refer to the [facility] Directory of Services. 0-Sxr-572808:26 Urinalysis, Office (54853) URINE UROBILINGN FANNY TIMED Normal mg/dL (Normal) UA - PROTEIN Negative mg/dL (Normal) UA - PH 6.0 (Normal) UA - BLOOD Hemolyzed Small (Normal) UA - SPECIFIC GRAVITY 1.030 (Abnormal) UA - KETONES Negative mg/dL (Normal) UA - BILIRUBIN Negative (Normal) UA - GLUCOSE Negative (Normal) :27 HgA1C , Office (34806) HgA1C , Office 5.9 % (Normal) Range: 4.6 - 7.1 :27 Blood Glucose , Office (53585) Blood Glucose , Office 109 (Normal) :03 IGP, Aptima HPV, Comments: Source.............Cervix;EndocervixNo. of containers..01 CYTYC Thin Prep VialPATIENT NOT FASTINGPERFORMED BY: =G [facility] Oevbnswytl650 [facility] W [id number] BY: WB [facility] rfx 16/18,[address] [id number] HPV Aptima Negative (Normal) Comments: This test [...] evaluation. No endocervical component is identified.Z01.419Margarita Reagan Reservation Clerk (ASCP) :54 HEPATIC FUNCTION PANEL Comments: PATIENT WAS FASTINGPERFORMED BY: BN [facility] Eoohcizkcm8709 [facility] [id number] BY: CB [facility] Hvhtpt1808 [facility] [id number] (96587) ALT (SGPT) 15 [iU]/L (Normal) Range: 0-32 AST (SGOT) 10 [iU]/L (Normal) Range: 0-40 Alkaline Phosphatase, S 87 [iU]/L (Normal) Range: 39-117 Bilirubin, Direct 0.20 mg/dL (Normal) Range: 0.00-0.40 Bilirubin, Total 0.9 mg/dL (Normal) Range: 0.0-1.2 Albumin, Serum 4.1 g/dL (Normal) Range: 3.5-5.5 Protein, Total, Serum 7.2 g/dL (Normal) Range: 6.0-8.5 33-Tkk-375205:54 LIPOPROTEIN, BLD, BY NMR Comments: PATIENT WAS FASTINGPERFORMED BY: BN [facility] Zzzhtcbsey6377 [facility] [id number] BY: CB [facility] Ecefwq2761 [facility] [id number] (67511) LP-IR Score 82 (Abnormal) Comments: INSULIN RESISTANCE MARKER <--Insulin Sensitive Insulin Resistant--> Percentile in Reference PopulationInsulin Resistance ScoreLP-IR Score Low 25th 50th 75th High <27 27 45 63 >63LP-IR Score is inaccurate if patient is non-fasting. .The LP-IR score is a laboratory developed i [facility] that has beenassociated with insulin resistance and [...] were developed and their performance characteristicsdetermined by [employer] These assays have not been cleared by [...] 1600 - 2000 Very High > 2000 47-Shq-115620:54 CALCIFEDIOL (22889) Comments: PATIENT WAS FASTINGPERFORMED BY: BN [facility] [address] [id number] BY: CB [facility] Ixryca4301 [facility] [id number] Vitamin D, 25-Hydroxy 35.2 ng/mL (Normal) Range: 30.0-100.0 Comments: Vitamin D deficiency has been defined by the [place] of[place] and an Endocrine Society practice guideline as alevel of serum 25-OH vitamin D less than 20 ng/mL (1,2).The Endocrine Society went on to further define vitamin Dinsufficiency as a level between 21 and 29 ng/mL (2).1. IOM ([place] of Medicine). 2010. Dietary reference intakes for calcium and D. [place]: The National Academies Press.2. Ritika MF, Demetrio ARORA, Barbara PENNY, et al. Evaluation, treatment, and prevention of vitamin D deficiency: an Endocrine Society clinical practice guideline. JCEM. 2010; 96(7):1911-30. 48-Hyg-951318:54 TESTOSTERONE FREE (75637) Comments: PATIENT WAS FASTINGPERFORMED BY: [facility] [id number] BY: [place] 4275270 [facility] [id number] Free Testosterone(Direct) 5.6 pg/mL (Abnormal) Range: 0.0-4.2 73-Dob-818124:54 FSH AND LH (75293) Comments: PATIENT WAS FASTINGPERFORMED BY: [employer] [id number] BY: [place] 4275270 [facility] [id number] FSH 25.4 m[iU]/mL (Normal) Comments: Follicular phase 3.5 - 12.5 Ovulation phase 4.7 - 21.5 Luteal phase 1.7 - 7.7 Postmenopausal 25.8 - 134.8 LH 40.2 m[iU]/mL (Normal) Comments: Follicular phase 2.4 - 12.6 Ovulation phase 14.0 - 95.6 Luteal phase 1.0 - 11.4 Postmenopausal 7.7 - 58.5 90-Vrz-010228:54 DHEA-S (DEHYDROEPIANDROSTERONE Comments: PATIENT WAS FASTINGPERFORMED BY: [employer] [id number] BY: [place] 4275270 [facility] [id number] SULFATE) (45147) DHEA-Sulfate 119.9 ug/dL (Normal) Range: 29.4-220.5 6-Pdg-899866:03 Thin prep Pap Comments: Source.............Cervix;EndocervixNo. of containers..01 CYTYC Thin Prep VialPATIENT NOT FASTINGPERFORMED BY: =G Lab[address] [id number] BY: [employer] (98104) (no STD rp [address] [id number] Information: [id number] testing) Age Gdln ACOG Testing 30-65 (Normal) 26-Wod-90146:48 URINE DAVID CULTURE-IDENTIFICATN Comments: PATIENT NOT FASTINGPERFORMED BY: PromocoDawn V[place] 2189270 [facility] [id number] Information: [id number] (02861) Result 1 MUG (Normal) Comments: Mixed urogenital flora2,000 Colonies/mL Urine Culture,Comprehensive Final report (Normal) 97-Bzk-96116:05 Urinalysis, Office (83319) UA - LEUKOCYTE ESTERASE Negative (Normal) UA - NITRITE Negative (Normal) URINE UROBILINGN FANNY TIMED Normal mg/dL (Normal) UA - PROTEIN Negative mg/dL (Normal) UA - PH 5 (Abnormal) UA - BLOOD Non Hemolyzed Trace (Normal) UA - SPECIFIC GRAVITY 1.030 (Abnormal) UA - KETONES Negative mg/dL (Normal) UA - BILIRUBIN Negative (Normal) UA - GLUCOSE Negative (Normal) 34-Xlr-573457:37 URINE DAVID CULTURE-IDENTIFICATN Comments: PATIENT NOT FASTINGPERFORMED BY: PromocoDawn [place] 2189270 [facility] [id number] Information: [id number] (87527) Antimicrobial MIHEAD (Normal) Comments: S = Susceptible; [...] pneumoniae (Abnormal) Urine Final report Culture,Comprehensive (Abnormal) 32-Szj-592352:17 MICROALBUMIN: CREATININE RATIO Comments: PATIENT WAS FASTINGPERFORMED BY: PromocoDawn [place] 2189270 [facility] [id number] (56852) AND (53937) Microalb/Creat Ratio 6.1 {mg/g_creat} (Normal) Range: 0.0-30.0 Microalbumin, Urine 6.8 ug/mL (Normal) Range: 0.0-17.0 Comments: Effective January 25, 2016 the reference interval for Microalbumin, Urine will be changing to: Not Estab. Creatinine, Urine 111.5 mg/dL (Normal) Range: 15.0-278.0 Comments: Effective January 25, 2016 the reference interval for Creatinine, Urine will be changing to: Not Estab. 79-Aji-869268:17 METABOLIC PANEL, COMPREHENSIVE Comments: PATIENT WAS FASTINGPERFORMED BY: [facility]CoJeff[facility])Wncole3757 [facility] [id number] (02222) ALT (SGPT) 20 [iU]/L (Normal) Range: 0-32 [...] Glucose, Serum 118 mg/dL (Abnormal) Range: 65-99 32-Wvm-299927:17 LIPID PANEL (52658) Comments: PATIENT WAS FASTINGPERFORMED BY: [facility] Spine TechnologiesJefferson Cherry Hill [facility])Aehlui6946 [facility] [id number] LDL/HDL Ratio 3.4 {ratio_units} (Abnormal) Range: 0.0-3.2 [...] Cholesterol, Total 283 mg/dL (Abnormal) Range: 100-199 :17 CBC with auto diff Comments: PATIENT WAS FASTINGPERFORMED BY: [employer] Ylpitc2225 [facility] [id number] Information: [id number] (03102) Immature Grans (Abs) 0.0 {x10E3/uL} (Normal) Range: [...] {x10E3/uL} (Normal) Range: 3.4-10.8 :27 Urinalysis, Office (89133) UA - LEUKOCYTE ESTERASE Trace (Normal) UA [...] GLUCOSE Negative (Normal) :21 HgA1C , Office (23490) HgA1C , Office 6.6 % (Normal) Range: 4.6 - 7.1 :23 HgA1C , Office (19860) HgA1C , Office 5.7 % (Normal) Range: 4.6 - 7.1 :23 Blood Glucose , Office (34249) Blood Glucose , Office 101 (Normal) :42 [...] CHOL 199 mg/dL (Normal) Comments: <200 mg/dL Sbsljwidu024-896 mg/dL Borderline>240 mg/dL High Risk 95-Mgw-801188:01 Renal function Panel Comments: PATIENT NOT FASTINGPERFORMED BY: [facility] [id number] Information: [id number] (61221) Albumin, Serum 4.5 g/dL (Normal) Range: 3.5-5.5 [...] Glucose, Serum 105 mg/dL (Abnormal) Range: 65-99 28-Fdb-995236:01 MAGNESIUM (63383) Comments: PATIENT NOT FASTINGPERFORMED BY: Smart Lunchesin [place] [id number] Magnesium, Serum 1.8 mg/dL (Normal) Range: 1.6-2.6 :54 C-Reactive Protein (75120) Comments: PATIENT NOT FASTINGPERFORMED BY: [facility]6370 [facility] [id number] C-Reactive Protein, Quant 2.5 mg/L (Normal) Range: 0.0-4.9 :54 Sed Rate Erythrocyte (25381) Comments: PATIENT NOT FASTINGPERFORMED BY: [place] 4275270 [facility] [id number] Sedimentation Rate-Westergren 4 mm/h (Normal) Range: 0-40 :54 T4, FREE (THYROXINE) (14591) Comments: PATIENT NOT FASTINGPERFORMED BY: [facility]6370 [facility] [id number] T4,Free(Direct) 1.32 ng/dL (Normal) Range: 0.82-1.77 :54 TSH (60698) Comments: PATIENT NOT FASTINGPERFORMED BY: [place] 4275270 [facility] [id number] Information: [id number] TSH 1.770 {uIU/mL} (Normal) Range: 0.450-4.500 :39 HgA1C , Office (53241) HgA1C , Office 5.8 % (Normal) Range: 4.6 - 7.1 :39 Blood Glucose , Office (31015) Blood Glucose , Office 96 (Normal) :23 LIPID PANEL (41637) Comments: PATIENT WAS FASTINGPERFORMED BY: [place] 4275270 [facility] [id number] Information: [id number] LDL/HDL Ratio 2.6 {ratio_units} (Normal) Range: 0.0-3.2 LDL Cholesterol Calc 99 mg/dL (Normal) Range: 0-99 VLDL Cholesterol Jesús 41 mg/dL (Abnormal) Range: 5-40 HDL Cholesterol 38 mg/dL (Abnormal) Comments: According to ATP-III Guidelines, HDL-C >59 mg/dL is considered anegative risk factor for CHD. Triglycerides 204 mg/dL (Abnormal) Range: 0-149 Cholesterol, Total 178 mg/dL (Normal) Range: 100-199 :23 HEPATIC FUNCTION PANEL (45134) Comments: PATIENT WAS FASTINGPERFORMED BY: [employer]70 [facility] [id number] ALT (SGPT) 23 [iU]/L (Normal) Range: 0-32 AST (SGOT) 19 [iU]/L (Normal) Range: 0-40 Alkaline Phosphatase, S 84 [iU]/L (Normal) Range: 39-117 Bilirubin, Direct 0.23 mg/dL (Normal) Range: 0.00-0.40 Bilirubin, Total 1.0 mg/dL (Normal) Range: 0.0-1.2 Albumin, Serum 4.4 g/dL (Normal) Range: 3.5-5.5 Protein, Total, Serum 7.2 g/dL (Normal) Range: 6.0-8.5 :42 MICROALBUMIN: CREATININE RATIO Comments: PATIENT WAS FASTINGPERFORMED BY: [employer]70 [facility] [id number] (72004) AND (57249) Creatinine, Urine 152.1 mg/dL (Normal) Range: 15.0-278.0 Microalb/Creat Ratio 23.3 {mg/g_creat} (Normal) Range: 0.0-30.0 Microalbumin, Urine 35.5 ug/mL (Abnormal) Range: 0.0-17.0 :42 METABOLIC PANEL, COMPREHENSIVE Comments: PATIENT WAS FASTINGPERFORMED BY: [employer]70 [facility] [id number] (16998) ALT (SGPT) 18 [iU]/L (Normal) Range: 0-32 [...] mg/dL (Abnormal) Range: 65-99 :42 LIPID PANEL (12015) Comments: PATIENT WAS FASTINGPERFORMED BY: [facility]6370 [facility] [id number] LDL/HDL Ratio 3.5 {ratio_units} (Abnormal) Range: 0.0-3.2 [...] MANUAL DIFF Comments: PATIENT WAS FASTINGPERFORMED BY: [facility]6370 [facility] [id number] Information: [id number] (26679) Immature Grans (Abs) 0.0 {x10E3/uL} (Normal) Range: [...] 3.77-5.28 WBC 7.7 {x10E3/uL} (Normal) Range: 3.4-10.8 :35 HgA1C , Office (47795) HgA1C , Office 6.4 % (Normal) Range: 4.6 - 7.1 :34 Blood Glucose , Office (65248) Blood Glucose , Office 124 (Normal) 28-Hex-681750:21 Rapid Flu (72028 x 2) Influenza A Ag negative (Normal) 24-Mdr-188237:23 MICROALBUMIN: CREATININE RATIO Comments: PATIENT NOT FASTINGPERFORMED BY: [facility] Spine TechnologiesJefferson [facility])Fenkms6620 [facility] [id number] (63905) AND (98100) Microalb/Creat Ratio 3.5 {mg/g_creat} (Normal) Range: 0.0-30.0 Microalbumin, Urine 5.6 ug/mL (Normal) Range: 0.0-17.0 Creatinine, Urine 158.0 mg/dL (Normal) Range: 15.0-278.0 93-Sxb-895218:23 METABOLIC PANEL, COMPREHENSIVE Comments: PATIENT NOT FASTINGPERFORMED BY: [employer] Jkbidp5230 [facility] [id number] (70495) ALT (SGPT) 16 [iU]/L (Normal) Range: 0-32 [...] Glucose, Serum 101 mg/dL (Abnormal) Range: 65-99 04-Pwk-875367:23 CBC WITH MANUAL DIFF Comments: PATIENT NOT FASTINGPERFORMED BY: [facility]CoJefferson [facility])Apfuqb4507 [facility] [id number] Information: [id number] (41961) Immature Grans (Abs) 0.0 {x10E3/uL} (Normal) Range: [...] Range: 4.0-10.5 :52 Blood Glucose , Office (87242) Blood Glucose , Office 116 (Normal) 45-Kxc-507228:52 HgA1C , Office (12188) HgA1C , Office 6.2 % (Normal) Range: 4.6 - 7.1 :37 Rapid Flu (07288 x 2) Influenza A Ag negative (Normal) :27 HgA1C , Office (67712) HgA1C , Office 5.7 % (Normal) Range: 4.6 - 7.1 :27 Blood Glucose , Office (57663) Blood Glucose , Office 98 (Normal) :18 CREATININE CLEARANCE Comments: PATIENT NOT FASTINGPERFORMED BY: LabBlockAvenue[address] [id number] Information: [id number] (28847) 24 HOUR Creatinine Clearance 104 mL/min (Normal) Range: 88-128 Comments: The above range is based on 1.73 square meter average body surfacearea. Creatinine, Ur 24hr 1169.7 {mg/24_hr} (Normal) Range: 800.0-1800.0 Creatinine, Urine 55.7 mg/dL (Normal) Range: 15.0-278.0 eGFR If Africn Am 99 mL/min/1.73 (Normal) eGFR If NonAfricn Am 86 mL/min/1.73 (Normal) Creatinine, Serum 0.78 mg/dL (Normal) Range: 0.57-1.00 :43 LIPID PANEL (85349) Comments: PATIENT WAS FASTINGPERFORMED BY: LabCoJessica Ville 9268570 [facility] [id number] Information: [id number] LDL/HDL Ratio 3.0 {ratio_units} (Normal) Range: 0.0-3.2 LDL Cholesterol Calc 145 mg/dL (Abnormal) Range: 0-99 VLDL Cholesterol Jesús 61 mg/dL (Abnormal) Range: 5-40 HDL Cholesterol 48 mg/dL (Normal) Comments: According to ATP-III Guidelines, HDL-C >59 mg/dL is considered anegative risk factor for CHD. Triglycerides 307 mg/dL (Abnormal) Range: 0-149 Cholesterol, Total 254 mg/dL (Abnormal) Range: 100-199 :53 HgA1C , Office (71139) HgA1C , Office 6.8 % (Normal) Range: 4.6 - 7.1 78-Kyt-066984:53 Blood Glucose , Office (97414) Blood Glucose , Office 111 (Normal) 29-Msx-571865:03 Thin prep Pap Comments: Source.............Cervical;EndocervicalNo. of containers..01 CYTYC Thin Prep VialPATIENT NOT FASTINGPERFORMED BY: [facility]Co[address] AzraJosiah B. Thomas Hospitalrosemarietyler memorial hospital [place] [id number] Information: [id number] (50563) Note: PAPSMR (Normal) Comments: The Pap smear [...] is identified.V72.31 ; Routine gynecological examinationCyntyovany Nails Reservation Clerk (ASCP) 70-Inu-170738:06 HgA1C , Office (18208) HgA1C , Office 5.8 % (Normal) Range: 4.6 - 7.1 09-Wtb-636601:06 Blood Glucose , Office (08444) Blood Glucose , Office 100 (Normal) 41-Fvi-114248:19 BILAT SCRN DIGITAL & CAD Radiology Report See Note (Normal) Comments: Exam Number: [id number] MAMMOGRAM, BILATERAL SCREENING DIGITAL AND CAD HISTORYRoutine [...] mammograms werealso examined with computer-aided detection software ([employer], [employer] Reported By: CASEY WARD M.D. :27 HgA1C , Office (15678) HgA1C , Office 5.7 % (Normal) Range: [...] T PROT 7.6 g/dL (Normal) Range: 6.4-8.2 87-Fpi-32360:11 ROUTINE UA BILIRUBIN URINE SeeNote (Normal) Comments: [...] 0.2 EU/dl (Normal) Range: 0.2 - 1.0 60-Iya-786539:09 Pap Lb, Ct-Ng, Comments: Source.............Cervical;EndocervicalNo. of containers..01 CYTYC Thin Prep VialClinical Information: [id number] PERFORMED BY: =G [facility] [id number] HPV-hr . . (Normal) Chlamydia, Nuc. Acid Amp Negative (Normal) DIAGNOSIS: SPRCS (Normal) Comments: NEGATIVE FOR INTRAEPITHELIAL LESION AND MALIGNANCY.Satisfactory for evaluation. Endocervical and/or squamous metaplasticcells (endocervical component) are present.789.07 ; Abdominal pain, g eneralizedG Iveth Ugalde, Supervisory Reservation Clerk (ASCP) Gonococcus, Nuc. Acid Amp Negative (Normal) [...] :08 Genital Culture, Routine Comments: PERFORMED BY: [facility]6370 [facility] [id number] Genital Culture, Routine Final report (Normal) Result 1 RGF (Normal) Comments: Routine genital gerard. :08 Vaginitis/Vaginosis, DNA Probe Comments: Clinical Information: SRC:VA PERFORMED BY: [employer] Qjehmu6607 [facility] [id number] Nathaniel species Negative (Normal) Gardnerella vaginalis Negative (Normal) Trichomonas vaginalis Negative (Normal) 9-Mvz-397793:5 C-REACTIVE PROT 5.99 mg/L (Normal) Range: 0.0-6.0 0 Comments: Test performed using the Dimension C-Reactive ProteinExtended Range assay method. This assay meets the AHA/CDC 2003 recommendations fordetermining patients at high risk for cardiovasculardisease. Reference: High risk CRP >3.0 mg/L 1-Cvs-907724:50 CBCD,SMEAR DIFF BAND 4 % (Normal) Range: [...] 47-70 WBC 7.2 K/mm3 (Normal) Range: 4.4-11.0 7-Bdp-169158:50 COMP METABOLIC A/G 1.1 {RATIO} (Normal) Range: [...] T PROT 7.4 g/dL (Normal) Range: 6.4-8.2 6-Gxv-062164:50 ESR SED RATE 11 mm/h (Normal) Range: 0-30 8-Fcy-234142:53 ACUTE ABDOMEN, INC CHEST (MT) Radiology Report See Note (Normal) Comments: Exam Number: [id number] ACUTE ABDOMEN INCLUDING CHEST HISTORYEpigastric pain since [...] methodology of Hgb A1C has changed to [place] BehringDimension RXL. No significant changes in patientresults [...] Thin prep Pap Comments: Source.............Cervical;EndocervicalLMP / Prev Treat...CXW=102419Ri. of containers..01 CYTYC Thin Prep VialPATIENT NOT FASTINGClinical Information: ADD [id number] PERFORMED BY: [employer] (47996) [facility] [place] [address] [place] [id number] . . (Normal) DIAGNOSIS: SPRCS (Normal) Comments: NEGATIVE FOR INTRAEPITHELIAL LESION AND MALIGNANCY.Satisfactory for evaluation. Endocervical and/or squamous metaplasticcells (endocervical component) are present.Khalif Reeves Cytotechnonhan gist (ASCP) Note: PAPSMR (Normal) Comments: The [...] resulttherefore, no HPV testing was performed. . 65-Uds-41971:28 BILAT SCRN DIGITAL & CAD Radiology Report See Note (Normal) Comments: Exam Number: [id number] BILATERAL SCREENING DIGITAL MAMMOGRAM CLINICAL INFORMATIONScreening. Bilateral [...] mammogramswere also examined with computer- aided detection software([employer] Reported By: BALBIR GATICA M.D. Plan [...] V70.0 Planned Observations LIPOPROTEIN, BLD, BY NMR (52498)Indication: Hypercholesteremia On: :44 Request HEPATIC FUNCTION PANEL (99452)Indication: Hypercholesteremia On: :44 Request Homocysteine, Plasma (59216)Indication: MTHFR mutation On: :24 Request MICROALBUMIN: CREATININE RATIO (81794) AND (60897)Indication: Hypertension, benign On: 54-Sha-426645:01 Request URINALYSIS (71795)Indication: Hypertension, benign On: 99-Qps-661785:01 Request D-Dimer (88641)Indication: Multiple pulmonary emboli On: 7-Gfy-193327:21 Request Rapid Strep Test, Office (36959)Indication: Acute pharyngitis On: 80-Bvm-639706:53 Request Homocysteine, Plasma (67326)Indication: Elevated serum homocysteine level On: 88-Ufb-781221:08 Request CBC W/AUTO DIFF WBC (59452)Indication: Multiple pulmonary emboli On: 11-Aef-509636:45 Request Homocysteine, Plasma (79332)Indication: Multiple pulmonary emboli On: :24 Request Comments: please add to labs drawn pre coag MTHFR (48436)Indication: Multiple pulmonary emboli On: :24 Request Comments: please add to labs drawn pre coag TESTOSTERONE FREE (25935)Indication: Elevated testosterone level in female On: 22-Sep-20169:52 Request METABOLIC PANEL, COMPREHENSIVE (30068)Indication: Hypercholesteremia On: 9-Wof-415127:14 Request LIPOPROTEIN, BLD, BY NMR (98854)Indication: Hypercholesteremia On: 5-Bkt-132381:14 Request Cortisol,Urinary Free 24- Hour Urine (87916)Indication: Diabetes mellitus type II, controlled, with no complications On: 26-May-20168:34 Request URINALYSIS (80914)Indication: UTI (urinary tract infection) On: 03-Mjo-580547:04 Request Comments: recheck 10 days after ATB URINE DAVID CULTURE-IDENTIFICATN (61935)Indication: UTI (urinary tract infection) On: 92-Puw-214424:03 Request Comments: recheck 10 days after ATB CBC with auto diff (44098)Indication: Diabetes mellitus type II, controlled, with no complications On: 27-Ssi-178544:14 Request LIPID PANEL ([id number])Indication: Hypercholesteremia On: 49-Avb-628491:14 Request METABOLIC PANEL, COMPREHENSIVE ([id number])Indication: Diabetes mellitus type II, controlled, with no complications On: 48-Hmc-549001:14 Request MICROALBUMIN: CREATININE RATIO ([id number]) AND ([id number])Indication: Diabetes mellitus type II, controlled, with no complications On: 35-Pyo-979341:14 Request Hemoglobin Glyclated (HGB A1C) ([id number])Indication: Diabetes mellitus type II, controlled, with no complications On: 20-Mjx-426142:14 Request METABOLIC PANEL, COMPREHENSIVE ([id number])Indication: Diabetes mellitus type II, controlled, with no complications On: 25-Xpl-901360:20 Request LIPID PANEL ([id number])Indication: Diabetes mellitus type II, controlled, with no complications On: :20 Request CBC W/AUTO DIFF WBC ([id number])Indication: Diabetes mellitus type II, controlled, with no complications On: :20 Request MICROALBUMIN: CREATININE RATIO ([id number]) AND ([id number])Indication: Diabetes mellitus type II, controlled, with no complications On: :59 Request METABOLIC PANEL, COMPREHENSIVE ([id number])Indication: Diabetes mellitus type II, controlled, with no complications On: :59 Request LIPID PANEL ([id number])Indication: Diabetes mellitus type II, controlled, with no complications On: :59 Request CBC WITH MANUAL DIFF ([id number])Indication: Diabetes mellitus type II, controlled, with no complications On: :59 Request MICROALBUMIN: CREATININE RATIO ([id number]) AND ([id number])Indication: Diabetes mellitus type 2, uncontrolled, without complications On: 25-Sgg-472917:10 Request PT (Prothrobim Time) ([id number])Indication: Pre-operative examination On: 91-Hbf-221468:13 Request PTT (Activated Partial Thromboplastin Time) ([id number])Indication: Pre-operative examination On: 92-Uul-982856:13 Request CBC with manual diff ([id number])Indication: Pre-operative examination On: 13-Fcy-181881:13 Request Metabolic Panel, Basic ([id number])Indication: Pre-operative examination On: 48-Twu-696585:11 Request Lipid Panel ([id number])Indication: Hypertension, benign On: :31 Request TSH ([id number])Indication: Hypertension, benign On: : Request URINALYSIS, W/ MICRO ([id number])Indication: Hypertension, benign On: :31 Request MICROALBUMIN: CREATININE RATIO ([id number]) AND ([id number])Indication: Hypertension, benign On: : Request METABOLIC PANEL, COMPREHENSIVE ([id number])Indication: Hypertension, benign On: : Request LIPOPROTEIN, BLD, BY NMR ([id number])Indication: Hypertension, benign On: : Request LIPID PANEL ([id number])Indication: Hypertension, benign On: : Request CBC WITH MANUAL DIFF ([id number])Indication: Hypertension, benign On: Request thin prep ([id number]) (std testing)Indication: Abdominal pain, acute, generalized On: : Request NEISSERIA ([id number]) (THIN PREP OBTAINED)Indication: Abdominal pain, acute, generalized On: Request CHLAMYDIA ([id number]) (thin prep obtained)Indication: Abdominal pain, acute, generalized On: : Request INFCT ANTGN TRICH VAGIN DIRECT PRB ([id number])Indication: Abdominal pain, acute, generalized On: Request GARDNERELLA VAG, NUCLEIC ACID DIR PROBE ([id number])Indication: Abdominal pain, acute, generalized On: Request NATHANIEL, NUCLEIC ACID DIRECT PROBE ([id number])Indication: Abdominal pain, acute, generalized On: Request DAVID CULTURE-OTHER ([id number])Indication: Abdominal pain, acute, generalized On: :27 Request CBC (Auto) ([id number])Indication: Abdominal pain, acute, generalized On: : Request Metabolic Panel, Comprehensive ([id number])Indication: Abdominal pain, acute, generalized On: :26 Request Urinalysis, Office ([id number])Indication: Abdominal pain, acute, generalized On: 16-Bli-210113:44 Request C-REACTIVE PROTEIN ([id number])Indication: Epigastric pain On: :24 Request SED RATE ERYTHROCYTE ([id number])Indication: Epigastric pain On: :24 Request METABOLIC PANEL, COMPREHENSIVE ([id number])Indication: Epigastric pain On: :24 Request CBC WITH MANUAL DIFF ([id number])Indication: Epigastric pain On: :23 Request Hemoglobin Glyclated (HGB A1C) ([id number])Indication: Hypoglycemia On: 9-Dzx-630514:21 Request Lipid Panel ([id number])Indication: Hypercholesteremia On: 6-Sbv-495099:21 Request Planned Encounters Medical; 3 Month FU - On: 26-Oct-2018 13:30 [facility] Jeannie LIANG, Alycia Jeannie LIANG, Alycia Planned Procedures TDAP VACCINE >7 IM ([id number])By: On: 18-Jul-2018 Intent Zeinab Reddy MD US DOPPLER CAROTID BILATERAL On: 18-Jul-2018 Intent ([id number])By: Zeinab Reddy MD DEXA SCAN AXIAL SKELETON ([id number])By: On: 18-Jul-2018 Intent Zeinab Reddy MD SCREENING DIGITAL TOMOSYNTHESIS OF On: 18-Jul-2018 Intent BREAST ([id number])By: Zeinab Reddy MD SCREENING DIGITAL TOMOSYNTHESIS OF On: 13-Jul-2017 Intent BREAST ([id number])By: Zeinab Reddy MD EKG ([id number])By: Zeinab Reddy MD On: 21-Nov-2016 Intent Ultrasound - PelvisBy: Barry GONZALEZ, On: 24-Oct-2016 Intent Zeinab Varma Comments: copy to Dr. [email or web address]. CT - Abdomen (IV Contrast Needed)By: On: 26-Aug-2016 Intent Zeinab Reddy MD Comments: attention adrenals. Flu Vaccine (Quadrivalent) 94104Mu: On: 04-Jul-2016 Intent Zeinab Reddy MD US DOPPLER CAROTID BILATERAL On: 26-May-2016 Intent ([id number])By: Zeinab Reddy MD DEXA SCAN AXIAL SKELETON ([id number])By: On: 26-May-2016 Intent Zeinab Reddy MD BILATERAL MAMMOGRAMS ([id number])By: On: 26-May-2016 Intent Zeinab Reddy MD Nuclear Stress Test/Stress On: 05-Aug-2014 Intent SPECT/TreadmillBy: Carlotta Dennis CNP, CNP, Alycia Carotid DopplerBy: Zeinab Reddy MD On: 06-Jun-2014 Intent M Comments: dizzy MRI - Brain (IV Contrast Needed)By: On: 06-Jun-2014 Intent Zeinab Reddy MD Holter Monitor 24 hrsBy: Barry GONZALEZ, On: 06-Jun-2014 Intent Zeinab Varma EKG ([id number])By: Zeinab Reddy MD On: 02-Jun-2014 Intent Comments: see scanned document of test done to see results reviewed today with patient MAMMOGRAM, SCREENING, BOTH BREASTS On: 21-Jan-2014 Intent ([id number])By: Zeinab Reddy MD Eprescribed prescriptions ([id number])By: On: 21-Jan-2014 Intent Zeinab Reddy MD Aerosol Treatment ([id number])By: Jacy On: 07-Nov-2013 Intent Tracy MURPHY Comments: after aerosol - more a/e less inspir noise but lots of exp noise Spirometry ([id number])By: Jacy MURPHY, On: 07-Nov-2013 Intent Tracy Comments: poor effort and difficult time diong with coughjing -- restriction shown Eprescribed prescriptions ([id number])By: On: 07-Nov-2013 Intent Tracy Louie DO Aerosol Treatment ([id number])By: Jeannie On: 24-Sep-2012 Intent Carlotta LIANG CNP, Mary E Eprescribed prescriptions ([id number])By: On: 12-Jun-2012 Intent Tania Ledbetter LPN IMMUNIZ ADMNIN, 1 VAC, SNGL/COMBO On: 12-Jun-2012 Intent ([id number])By: Tania Ledbetter LPN FLU VAC, SPLIT, >3 YEARS, INTRAMUSC On: 12-Jun-2012 Intent ([id number])By: Tania Ledbetter LPN ELECTROCARDIOGRAM, COMPLETE (ECG) On: 10-Apr-2012 Intent ([id number])By: Carlotta Dennis CNP, CNP, Mary E Spirometry ([id number])By: Dwight MURPHY, On: 10-Jan-2011 Intent Valarie A Comments: done km- good effort and curve- mod obst Solu -Medrol Injection, 125 mg On: 10-Jan-2011 Intent ([id number])By: Jessica Alba LPN Comments: 2ml given im rt hip lotobjk2 exp 1-14 Pulse Oximetry ([id number])By: Dwight MURPHY, On: 10-Jan-2011 Intent Valarie A Comments: 96% Aerosol Treatment ([id number])By: Dwight On: 10-Jan-2011 Intent Valarie MURPHY Comments: done with albuterol 0.83%pt tolerated well MAMMOGRAM, SCREENING, BOTH BREASTS On: 30-Nov-2010 Intent ([id number])By: Zeinab Reddy MD MAMMOGRAM, SCREENING, BOTH BREASTS On: 23-Jul-2009 Intent ([id number])By: Zeinab Reddy MD EKG ([id number])By: Zeinab Reddy MD On: 23-Jul-2009 Intent Radiology - Abdomen SeriesBy: Jacy On: 19-Dec-2008 Intent DO Tracy TD Injection , IM ([id number])By: On: 21-Jan-2008 Intent Zeinab Reddy MD MAMMOGRAM, SCREENING, BOTH BREASTS On: 21-Jan-2008 Intent ([id number])By: Zeinab Reddy MD Planned Medications INJECTION, METHYLPREDNISOLONE [...] inoculation against influenza Encounters Phone Encounter On: 19-Jul-2018 10:26 Encounter Diagnosis: [...] for Tdap vaccination (Renamed from Need for vxayxjniou-krbzxht-lnjshvhox (Tdap) vaccine, adult/adolescent) [facility] [...] has been compliant with instructions. Current medication End: 02-Feb-2015 8:01 e: no side effects, [...] Patient has been compliant with instructions. Current sd End: 18-Jan-2015 22:33 dication use: no side [...] Female) (Renamed from Well Woman V72.31 (p,m)), Depression/Anxiety (300.4), Hypercholesteremia, Elevated [...] Date of procedure: ( End: 10-Apr-2012 16:59 2) . There have been no problems with [...] not using any method of contraception at [facility] End: 30-Nov-2010 15:39 s time. Patient [...] (Renamed from Hypercholesteremia (272.0)), Sleep disorder (780.50), [facility] V70.0 [facility] Payers Aliza bean guarantor
--- OUTSIDE RECORDS SUMMARY | 2018-10-10 11:15 | XMS RPT_ITS | Continuity of Care Document ---
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 <signature on file> 13-Xhh-664951:14 Bedside Glucose Comments: [facility] LaboratoryPoint of Wpkh[address] [place], [place] [address] BEDSIDE GLU 116 mg/dL (Abnormal) Range: 70-110 Comments: No Action RequiredMANAGEMENT OF PATIENT CARE PER NURSING PROTOCOL 6-Uzk-920421:24 PT (Prothrobim Time) Comments: copy of fl labs to Dr. mcdaniel; PATIENT NOT FASTINGPERFORMED BY: eeGeo [facility] HospitalLevel 5 NetworksNovant Health Kernersville [facility] Center [id number] BY: CCM Benchmarkton[address] [place] [address] [id number] (35777) Prothrombin Time 10.2 {sec} (Normal) Range: 9.1-12.0 INR 1.0 (Normal) Range: 0.8-1.2 Comments: Reference interval is for non-anticoagulated patients. . Suggested INR therapeutic range for Vitamin K anta gonist therapy: Standard Dose (moderate intensity therapeutic range): 2.0 - 3.0 Higher intensity therapeutic range 2.5 - 3.5 7-Zxc-168133:24 ESTRADIOL (94009) Comments: PATIENT NOT FASTINGPERFORMED BY: eeGeo [facility] HospitalLevel 5 NetworksNovant Health [facility] [id number] BY: CCM Benchmark[address] [id number] Estradiol 13.5 pg/mL (Normal) Comments: Adult Female: Follicular phase 12.5 - 166.0 Ovulation phase 85.8 - 498.0 Luteal phase 43.8 - 211.0 Postmenopausal <6.0 - 54.7 1st trimester 215.0 - & gt;4300.0 Girls (1-10 years) 6.0 - 27.0Roche ECLIA methodology 9-Ndf-155102:24 TESTOSTERONE FREE (91342) Comments: PATIENT NOT FASTINGPERFORMED BY: LabMegan Ville 9566570 [facility] [id number] BY: [address] [id number] Free Testosterone(Direct) 3.8 pg/mL (Normal) Range: 0.0-4.2 3-Zgn-612211:24 CBC, Platelets & Auto Comments: PATIENT NOT FASTINGPERFORMED BY: LabMegan [place] 9566570 [facility] [id number] BY: Lab[address] [id number] Diff (68218) Immature Grans (Abs) 0.0 {x10E3/uL} (Normal) Range: [...] 8.2 {x10E3/uL} (Normal) Range: 3.4-10.8 :24 PROLACTIN (61269) Comments: PATIENT NOT FASTINGPERFORMED BY: [place] 1493770 [facility] [id number] BY: [address] [id number] Prolactin 15.1 ng/mL (Normal) Range: 4.8-23.3 :24 PTT (Activated Partial Comments: PATIENT NOT FASTINGPERFORMED BY: [place] 1493770 [facility] [id number] BY: [address] [id number] Thromboplastin Time) (89099) aPTT 26 {sec} (Normal) Range: 24-33 Comments: This test has not been validated for monitoring unfractionated heparintherapy. aPTT-based therapeutic ranges for unfractionated heparintherapy have not been established. For general guidelines onHeparin monitoring, refer to the [facility]Children[facility] Directory of Services. :26 Urinalysis, Office (02635) URINE UROBILINGN FANNY TIMED Normal mg/dL (Normal) UA - PROTEIN Negative mg/dL (Normal) UA - PH 6.0 (Normal) UA - BLOOD Hemolyzed Small (Normal) UA - SPECIFIC GRAVITY 1.030 (Abnormal) UA - KETONES Negative mg/dL (Normal) UA - BILIRUBIN Negative (Normal) UA - GLUCOSE Negative (Normal) :27 HgA1C , Office (49108) HgA1C , Office 5.9 % (Normal) Range: 4.6 - 7.1 :27 Blood Glucose , Office (01985) Blood Glucose , Office 109 (Normal) :03 IGP, Aptima HPV, Comments: Source.............Cervix;EndocervixNo. of containers..01 CYTYC Thin Prep VialPATIENT NOT FASTINGPERFORMED BY: =G [facility] Ocfgtrkaiy546 [facility] [place] [id number] BY: WB LabCo rfx 16/18,45 rp Ourvdelhkr153 [facility] [place] [id number] HPV Aptima Negative (Normal) Comments: This test [...] evaluation. No endocervical component is identified.Z01.419Margarita Reagan Stripper Black And White (ASCP) :54 HEPATIC FUNCTION PANEL Comments: PATIENT WAS FASTINGPERFORMED BY: [facility] Gknznmixie4517 [facility] [id number] BY: [facility] Ecquuk3868 [facility] [id number] (49535) ALT (SGPT) 15 [iU]/L (Normal) Range: 0-32 AST (SGOT) 10 [iU]/L (Normal) Range: 0-40 Alkaline Phosphatase, S 87 [iU]/L (Normal) Range: 39-117 Bilirubin, Direct 0.20 mg/dL (Normal) Range: 0.00-0.40 Bilirubin, Total 0.9 mg/dL (Normal) Range: 0.0-1.2 Albumin, Serum 4.1 g/dL (Normal) Range: 3.5-5.5 Protein, Total, Serum 7.2 g/dL (Normal) Range: 6.0-8.5 71-Mrj-060453:54 LIPOPROTEIN, BLD, BY NMR Comments: PATIENT WAS FASTINGPERFORMED BY: BN [facility] Ggsvkbbfsr0557 [facility] [id number] BY: CB [facility] Eznkpi8408 [facility] [id number] (25614) LP-IR Score 82 (Abnormal) Comments: INSULIN RESISTANCE MARKER <--Insulin Sensitive Insulin Resistant--> Percentile in Reference PopulationInsulin Resistance ScoreLP-IR Score Low 25th 50th 75th High <27 27 45 63 >63LP-IR Score is inaccurate if patient is non-fasting. .The LP-IR score is a laboratory developed i [facility] that has beenassociated with insulin resistance and [...] were developed and their performance characteristicsdetermined by [employer]. These assays have not been cleared by [...] 1600 - 2000 Very High > 2000 03-Bhe-497236:54 CALCIFEDIOL (18166) Comments: PATIENT WAS FASTINGPERFORMED BY: CCM Benchmark[address] [id number] BY: eeGeo [facility] [id number] Vitamin D, 25-Hydroxy 35.2 ng/mL (Normal) Range: 30.0-100.0 Comments: Vitamin D deficiency has been defined by the [place] [facility] and an Endocrine Society practice guideline as alevel of serum 25-OH vitamin D less than 20 ng/mL (1,2).The Endocrine Society went on to further define vitamin Dinsufficiency as a level between 21 and 29 ng/mL (2).1. IOM ([place] of Medicine). 2010. Dietary reference intakes for calcium and D. [place]: The National Academies Press.2. Ritika MF, Demetrio ARORA, Barbara PENNY, et al. Evaluation, treatment, and prevention of vitamin D deficiency: an Endocrine Society clinical practice guideline. JCEM. 2010; 96(7):1911-30. 82-Jvj-063793:54 TESTOSTERONE FREE (07090) Comments: PATIENT WAS FASTINGPERFORMED BY: CCM Benchmark[address] [id number] BY: Zubka70 [facility] [id number] Free Testosterone(Direct) 5.6 pg/mL (Abnormal) Range: 0.0-4.2 73-Jqp-806892:54 FSH AND LH (65165) Comments: PATIENT WAS FASTINGPERFORMED BY: [address] [id number] BY: [facility]6370 [facility] [id number] FSH 25.4 m[iU]/mL (Normal) Comments: Follicular phase 3.5 - 12.5 Ovulation phase 4.7 - 21.5 Luteal phase 1.7 - 7.7 Postmenopausal 25.8 - 134.8 LH 40.2 m[iU]/mL (Normal) Comments: Follicular phase 2.4 - 12.6 Ovulation phase 14.0 - 95.6 Luteal phase 1.0 - 11.4 Postmenopausal 7.7 - 58.5 46-Cbn-964313:54 DHEA-S (DEHYDROEPIANDROSTERONE Comments: PATIENT WAS FASTINGPERFORMED BY: Shoeboxed[address] [id number] BY: [address] [id number] SULFATE) (26657) DHEA-Sulfate 119.9 ug/dL (Normal) Range: 29.4-220.5 3-Pzl-356675:03 Thin prep Pap Comments: Source.............Cervix;EndocervixNo. of containers..01 CYTYC Thin Prep VialPATIENT NOT FASTINGPERFORMED BY: =G Lab[address] [id number] BY: [facility] ([address]) (no STD rp [address] [id number] Information: [id number] testing) Age Gdln ACOG Testing 30-65 (Normal) 92-Rxx-73397:48 URINE DAVID CULTURE-IDENTIFICATN Comments: PATIENT NOT FASTINGPERFORMED BY: [facility]6370 [facility] [id number] Information: [id number] (31895) Result 1 MUG (Normal) Comments: Mixed urogenital flora2,000 Colonies/mL Urine Culture,Comprehensive Final report (Normal) 65-Qzg-00494:05 Urinalysis, Office (80400) UA - LEUKOCYTE ESTERASE Negative (Normal) UA - NITRITE Negative (Normal) URINE UROBILINGN FANNY TIMED Normal mg/dL (Normal) UA - PROTEIN Negative mg/dL (Normal) UA - PH 5 (Abnormal) UA - BLOOD Non Hemolyzed Trace (Normal) UA - SPECIFIC GRAVITY 1.030 (Abnormal) UA - KETONES Negative mg/dL (Normal) UA - BILIRUBIN Negative (Normal) UA - GLUCOSE Negative (Normal) 76-Npq-210914:37 URINE DAVID CULTURE-IDENTIFICATN Comments: PATIENT NOT FASTINGPERFORMED BY: CarZumer Nvdrmo4782 [facility] [id number] Information: [id number] (77997) Antimicrobial MIHEAD (Normal) Comments: S = Susceptible; [...] pneumoniae (Abnormal) Urine Final report Culture,Comprehensive (Abnormal) 23-Hzq-479468:17 MICROALBUMIN: CREATININE RATIO Comments: PATIENT WAS FASTINGPERFORMED BY: CarZumer Hdukiu1456 [facility] [id number] (98377) AND (15275) Microalb/Creat Ratio 6.1 {mg/g_creat} (Normal) Range: 0.0-30.0 Microalbumin, Urine 6.8 ug/mL (Normal) Range: 0.0-17.0 Comments: Effective January 25, 2016 the reference interval for Microalbumin, Urine will be changing to: Not Estab. Creatinine, Urine 111.5 mg/dL (Normal) Range: 15.0-278.0 Comments: Effective January 25, 2016 the reference interval for Creatinine, Urine will be changing to: Not Estab. 92-Eqv-456165:17 METABOLIC PANEL, COMPREHENSIVE Comments: PATIENT WAS FASTINGPERFORMED BY: DESI [employer]70 [facility] [id number] (24241) ALT (SGPT) 20 [iU]/L (Normal) Range: 0-32 [...] Glucose, Serum 118 mg/dL (Abnormal) Range: 65-99 70-Ell-497501:17 LIPID PANEL (95789) Comments: PATIENT WAS FASTINGPERFORMED BY: [employer]70 [facility] [id number] LDL/HDL Ratio 3.4 {ratio_units} (Abnormal) Range: 0.0-3.2 [...] Cholesterol, Total 283 mg/dL (Abnormal) Range: 100-199 21-Llc-337200:17 CBC with auto diff Comments: PATIENT WAS FASTINGPERFORMED BY: LabCoHampton Behavioral Health CenterEjtpwz9081 [facility] [id number] Information: [id number] (02886) Immature Grans (Abs) 0.0 {x10E3/uL} (Normal) Range: [...] {x10E3/uL} (Normal) Range: 3.4-10.8 :27 Urinalysis, Office (44561) UA - LEUKOCYTE ESTERASE Trace (Normal) UA [...] GLUCOSE Negative (Normal) :21 HgA1C , Office (72460) HgA1C , Office 6.6 % (Normal) Range: 4.6 - 7.1 :23 HgA1C , Office (36527) HgA1C , Office 5.7 % (Normal) Range: 4.6 - 7.1 :23 Blood Glucose , Office (99102) Blood Glucose , Office 101 (Normal) :42 [...] CHOL 199 mg/dL (Normal) Comments: <200 mg/dL Nbekjvsph167-082 mg/dL Borderline>240 mg/dL High Risk 87-Lii-568832:01 Renal function Panel Comments: PATIENT NOT FASTINGPERFORMED BY: [facility] [id number] Information: [id number] (47996) Albumin, Serum 4.5 g/dL (Normal) Range: 3.5-5.5 [...] Glucose, Serum 105 mg/dL (Abnormal) Range: 65-99 22-Alc-836179:01 MAGNESIUM (46479) Comments: PATIENT NOT FASTINGPERFORMED BY: Storone Lhirus2883 [facility] [id number] Magnesium, Serum 1.8 mg/dL (Normal) Range: 1.6-2.6 90-Pmn-728548:54 C-Reactive Protein (65671) Comments: PATIENT NOT FASTINGPERFORMED BY: Storone Gusxns8121 [facility] [id number] C-Reactive Protein, Quant 2.5 mg/L (Normal) Range: 0.0-4.9 :54 Sed Rate Erythrocyte (14427) Comments: PATIENT NOT FASTINGPERFORMED BY: [facility]6370 [facility] [id number] Sedimentation Rate-Westergren 4 mm/h (Normal) Range: 0-40 :54 T4, FREE (THYROXINE) (15543) Comments: PATIENT NOT FASTINGPERFORMED BY: [address] [id number] T4,Free(Direct) 1.32 ng/dL (Normal) Range: 0.82-1.77 :54 TSH (62125) Comments: PATIENT NOT FASTINGPERFORMED BY: [place] 1493770 [facility] [id number] Information: [id number] TSH 1.770 {uIU/mL} (Normal) Range: 0.450-4.500 :39 HgA1C , Office (15244) HgA1C , Office 5.8 % (Normal) Range: 4.6 - 7.1 :39 Blood Glucose , Office (66209) Blood Glucose , Office 96 (Normal) :23 LIPID PANEL (74147) Comments: PATIENT WAS FASTINGPERFORMED BY: [place] 1493770 [facility] [id number] Information: [id number] LDL/HDL Ratio 2.6 {ratio_units} (Normal) Range: 0.0-3.2 LDL Cholesterol Calc 99 mg/dL (Normal) Range: 0-99 VLDL Cholesterol Jesús 41 mg/dL (Abnormal) Range: 5-40 HDL Cholesterol 38 mg/dL (Abnormal) Comments: According to ATP-III Guidelines, HDL-C >59 mg/dL is considered anegative risk factor for CHD. Triglycerides 204 mg/dL (Abnormal) Range: 0-149 Cholesterol, Total 178 mg/dL (Normal) Range: 100-199 :23 HEPATIC FUNCTION PANEL (88875) Comments: PATIENT WAS FASTINGPERFORMED BY: [place] 1493770 [facility] [id number] ALT (SGPT) 23 [iU]/L (Normal) Range: 0-32 AST (SGOT) 19 [iU]/L (Normal) Range: 0-40 Alkaline Phosphatase, S 84 [iU]/L (Normal) Range: 39-117 Bilirubin, Direct 0.23 mg/dL (Normal) Range: 0.00-0.40 Bilirubin, Total 1.0 mg/dL (Normal) Range: 0.0-1.2 Albumin, Serum 4.4 g/dL (Normal) Range: 3.5-5.5 Protein, Total, Serum 7.2 g/dL (Normal) Range: 6.0-8.5 :42 MICROALBUMIN: CREATININE RATIO Comments: PATIENT WAS FASTINGPERFORMED BY: [facility]6370 [facility] [id number] (63530) AND (45429) Creatinine, Urine 152.1 mg/dL (Normal) Range: 15.0-278.0 Microalb/Creat Ratio 23.3 {mg/g_creat} (Normal) Range: 0.0-30.0 Microalbumin, Urine 35.5 ug/mL (Abnormal) Range: 0.0-17.0 :42 METABOLIC PANEL, COMPREHENSIVE Comments: PATIENT WAS FASTINGPERFORMED BY: [facility]6370 [facility] [id number] (84223) ALT (SGPT) 18 [iU]/L (Normal) Range: 0-32 [...] mg/dL (Abnormal) Range: 65-99 :42 LIPID PANEL (92839) Comments: PATIENT WAS FASTINGPERFORMED BY: Zubka70 CCM [facility]Nov[facility] [id number] LDL/HDL Ratio 3.5 {ratio_units} (Abnormal) Range: 0.0-3.2 [...] MANUAL DIFF Comments: PATIENT WAS FASTINGPERFORMED BY: Zubka70 [facility] [id number] Information: [id number] (99649) Immature Grans (Abs) 0.0 {x10E3/uL} (Normal) Range: [...] 3.77-5.28 WBC 7.7 {x10E3/uL} (Normal) Range: 3.4-10.8 9-Ira-358216:35 HgA1C , Office (39628) HgA1C , Office 6.4 % (Normal) Range: 4.6 - 7.1 9-Wwd-918602:34 Blood Glucose , Office (95368) Blood Glucose , Office 124 (Normal) 04-Oaq-096520:21 Rapid Flu (45934 x 2) Influenza A Ag negative (Normal) 23-Ioz-304674:23 MICROALBUMIN: CREATININE RATIO Comments: PATIENT NOT FASTINGPERFORMED BY: LabCoHampton Behavioral Health CenterQugmrh8600 [facility] [id number] (81298) AND (98670) Microalb/Creat Ratio 3.5 {mg/g_creat} (Normal) Range: 0.0-30.0 Microalbumin, Urine 5.6 ug/mL (Normal) Range: 0.0-17.0 Creatinine, Urine 158.0 mg/dL (Normal) Range: 15.0-278.0 21-Rmu-930172:23 METABOLIC PANEL, COMPREHENSIVE Comments: PATIENT NOT FASTINGPERFORMED BY: StoroneHampton Behavioral Health CenterBbqrqm4343 [facility] [id number] (70979) ALT (SGPT) 16 [iU]/L (Normal) Range: 0-32 [...] Glucose, Serum 101 mg/dL (Abnormal) Range: 65-99 46-Vhu-098405:23 CBC WITH MANUAL DIFF Comments: PATIENT NOT FASTINGPERFORMED BY: [facility]oxedSelect Specialty Hospital6370 [facility] [id number] Information: [id number] (07018) Immature Grans (Abs) 0.0 {x10E3/uL} (Normal) Range: [...] Range: 4.0-10.5 :52 Blood Glucose , Office (48830) Blood Glucose , Office 116 (Normal) :52 HgA1C , Office (48439) HgA1C , Office 6.2 % (Normal) Range: 4.6 - 7.1 :37 Rapid Flu (21423 x 2) Influenza A Ag negative (Normal) :27 HgA1C , Office (42047) HgA1C , Office 5.7 % (Normal) Range: 4.6 - 7.1 97-Dge-032457:27 Blood Glucose , Office (21795) Blood Glucose , Office 98 (Normal) 27-Onl-788181:18 CREATININE CLEARANCE Comments: PATIENT NOT FASTINGPERFORMED BY: StoroneHampton Behavioral Health CenterUnpqmw8819 [facility] [id number] Information: [id number] (49739) 24 HOUR Creatinine Clearance 104 mL/min (Normal) Range: 88-128 Comments: The above range is based on 1.73 square meter average body surfacearea. Creatinine, Ur 24hr 1169.7 {mg/24_hr} (Normal) Range: 800.0-1800.0 Creatinine, Urine 55.7 mg/dL (Normal) Range: 15.0-278.0 eGFR If Africn Am 99 mL/min/1.73 (Normal) eGFR If NonAfricn Am 86 mL/min/1.73 (Normal) Creatinine, Serum 0.78 mg/dL (Normal) Range: 0.57-1.00 89-Osd-412817:43 LIPID PANEL (95004) Comments: PATIENT WAS FASTINGPERFORMED BY: ShoeboxedCoHampton Behavioral Health CenterAkwumb1638 [facility] [id number] Information: [id number] LDL/HDL Ratio 3.0 {ratio_units} (Normal) Range: 0.0-3.2 LDL Cholesterol Calc 145 mg/dL (Abnormal) Range: 0-99 VLDL Cholesterol Jesús 61 mg/dL (Abnormal) Range: 5-40 HDL Cholesterol 48 mg/dL (Normal) Comments: According to ATP-III Guidelines, HDL-C >59 mg/dL is considered anegative risk factor for CHD. Triglycerides 307 mg/dL (Abnormal) Range: 0-149 Cholesterol, Total 254 mg/dL (Abnormal) Range: 100-199 04-Dgb-061486:53 HgA1C , Office (52912) HgA1C , Office 6.8 % (Normal) Range: 4.6 - 7.1 92-Rug-132879:53 Blood Glucose , Office (86907) Blood Glucose , Office 111 (Normal) 30-Zuo-660481:03 Thin prep Pap Comments: Source.............Cervical;EndocervicalNo. of containers..01 CYTYC Thin Prep VialPATIENT NOT FASTINGPERFORMED BY: ShoeboxedMirp [address] [facility] [id number] Information: [id number] (88142) Note: PAPSMR (Normal) Comments: The Pap smear [...] is identified.V72.31 ; Routine gynecological examinationCyntyovany Nails Stripper Black And White (ASCP) 79-Umr-578956:06 HgA1C , Office (11784) HgA1C , Office 5.8 % (Normal) Range: 4.6 - 7.1 00-Rbd-089709:06 Blood Glucose , Office (78524) Blood Glucose , Office 100 (Normal) 66-Pzm-396953:19 BILAT SCRN DIGITAL & CAD Radiology Report See Note (Normal) Comments: Exam Number: [id number] MAMMOGRAM, BILATERAL SCREENING DIGITAL AND CAD HISTORYRoutine [...] mammograms werealso examined with computer-aided detection software (ImageUnified tami, [employer] Reported By: CASEY WARD M.D. :27 HgA1C , Office (92062) HgA1C , Office 5.7 % (Normal) Range: [...] T PROT 7.6 g/dL (Normal) Range: 6.4-8.2 91-Dnt-14528:11 ROUTINE UA BILIRUBIN URINE SeeNote (Normal) Comments: [...] 0.2 EU/dl (Normal) Range: 0.2 - 1.0 35-Lkd-803635:09 Pap Lb, Ct-Ng, Comments: Source.............Cervical;EndocervicalNo. of containers..01 CYTYC Thin Prep VialClinical Information: [id number] PERFORMED BY: =G LabCo[address] [id number] HPV-hr . . (Normal) Chlamydia, Nuc. Acid Amp Negative (Normal) DIAGNOSIS: SPRCS (Normal) Comments: NEGATIVE FOR INTRAEPITHELIAL LESION AND MALIGNANCY.Satisfactory for evaluation. Endocervical and/or squamous metaplasticcells (endocervical component) are present.789.07 ; Abdominal pain, g eneralizedG Iveth Ugalde, Supervisory Stripper Black And White (ASCP) Gonococcus, Nuc. Acid Amp Negative (Normal) [...] :08 Genital Culture, Routine Comments: PERFORMED BY: [facility] [id number] Genital Culture, Routine Final report (Normal) Result 1 RGF (Normal) Comments: Routine genital gerard. :08 Vaginitis/Vaginosis, DNA Probe Comments: Clinical Information: SRC:VA PERFORMED BY: Dexterra63Blackaeon InternationalCaroMont [facility] [id number] Nathaniel species Negative (Normal) Gardnerella vaginalis Negative (Normal) Trichomonas vaginalis Negative (Normal) 5-Zka-107192:5 C-REACTIVE PROT 5.99 mg/L (Normal) Range: 0.0-6.0 0 Comments: Test performed using the Dimension C-Reactive ProteinExtended Range assay method. This assay meets the AHA/CDC 2003 recommendations fordetermining patients at high risk for cardiovasculardisease. Reference: High risk CRP >3.0 mg/L 5-Dfy-449276:50 CBCD,SMEAR DIFF BAND 4 % (Normal) Range: [...] Report See Note (Normal) Comments: Exam Number: [id number] ACUTE ABDOMEN INCLUDING CHEST HISTORYEpigastric pain since [...] methodology of Hgb A1C has changed to [place] BehringDimension RXL. No significant changes in patientresults [...] Thin prep Pap Comments: Source.............Cervical;EndocervicalLMP / Prev Treat...HWR=[id number]. of containers..01 CYTYC Thin Prep VialPATIENT NOT FASTINGClinical Information: ADD [id number] PERFORMED BY: ShoeboxedMi (20720) [address] [id number] . . (Normal) DIAGNOSIS: SPRCS (Normal) Comments: [...] resulttherefore, no HPV testing was performed. . 72-Uji-10177:28 BILAT SCRN DIGITAL & CAD Radiology Report See Note (Normal) Comments: Exam Number: [id number] BILATERAL SCREENING DIGITAL MAMMOGRAM CLINICAL INFORMATIONScreening. Bilateral [...] mammogramswere also examined with computer- aided detection software([employer], [employer].). Reported By: BALBIR GATICA M.D. Plan of [...] V70.0 Planned Observations LIPOPROTEIN, BLD, BY NMR (92761)Indication: Hypercholesteremia On: 58-Yct-733357:44 Request HEPATIC FUNCTION PANEL (86873)Indication: Hypercholesteremia On: 85-Syd-361234:44 Request Homocysteine, Plasma (45903)Indication: MTHFR mutation On: 48-Wym-942572:24 Request MICROALBUMIN: CREATININE RATIO (16592) AND (66883)Indication: Hypertension, benign On: 79-Hsl-465307:01 Request URINALYSIS (76822)Indication: Hypertension, benign On: 85-Csp-824178:01 Request D-Dimer (57043)Indication: Multiple pulmonary emboli On: 3-Wti-571264:21 Request Rapid Strep Test, Office (00233)Indication: Acute pharyngitis On: 41-Vrv-822178:53 Request Homocysteine, Plasma (95117)Indication: Elevated serum homocysteine level On: 38-Wps-304333:08 Request CBC W/AUTO DIFF WBC (78898)Indication: Multiple pulmonary emboli On: 23-Zkg-559257:45 Request Homocysteine, Plasma (92483)Indication: Multiple pulmonary emboli On: :24 Request Comments: please add to labs drawn pre coag MTHFR (71903)Indication: Multiple pulmonary emboli On: :24 Request Comments: please add to labs drawn pre coag TESTOSTERONE FREE ([id number])Indication: Elevated testosterone level in female On: 22-Sep-20169:52 Request METABOLIC PANEL, COMPREHENSIVE ([id number])Indication: Hypercholesteremia On: 0-Mls-182995:14 Request LIPOPROTEIN, BLD, BY NMR ([id number])Indication: Hypercholesteremia On: :14 Request Cortisol,Urinary Free 24- Hour Urine ([id number])Indication: Diabetes mellitus type II, controlled, with no complications On: 26-May-20168:34 Request URINALYSIS ([id number])Indication: UTI (urinary tract infection) On: 28-Bhd-816993:04 Request Comments: recheck 10 days after ATB URINE DAVID CULTURE-IDENTIFICATN ([id number])Indication: UTI (urinary tract infection) On: 20-Sqx-438662:03 Request Comments: recheck 10 days after ATB CBC with auto diff ([id number])Indication: Diabetes mellitus type II, controlled, with no complications On: 37-Vbm-755085:14 Request LIPID PANEL ([id number])Indication: Hypercholesteremia On: 81-Ozr-900574:14 Request METABOLIC PANEL, COMPREHENSIVE ([id number])Indication: Diabetes mellitus type II, controlled, with no complications On: 75-Dyc-425524:14 Request MICROALBUMIN: CREATININE RATIO ([id number]) AND ([id number])Indication: Diabetes mellitus type II, controlled, with no complications On: 85-Tgf-530591:14 Request Hemoglobin Glyclated (HGB A1C) ([id number])Indication: Diabetes mellitus type II, controlled, with no complications On: 79-Qzq-362115:14 Request METABOLIC PANEL, COMPREHENSIVE ([id number])Indication: Diabetes mellitus type II, controlled, with no complications On: 04-Fbu-158381:20 Request LIPID PANEL ([id number])Indication: Diabetes mellitus type II, controlled, with no complications On: 02-Vfu-851166:20 Request CBC W/AUTO DIFF WBC ([id number])Indication: Diabetes mellitus type II, controlled, with no complications On: 54-Zkb-973932:20 Request MICROALBUMIN: CREATININE RATIO ([id number]) AND ([id number])Indication: Diabetes mellitus type II, controlled, with no complications On: :59 Request METABOLIC PANEL, COMPREHENSIVE ([id number])Indication: Diabetes mellitus type II, controlled, with no complications On: :59 Request LIPID PANEL ([id number])Indication: Diabetes mellitus type II, controlled, with no complications On: :59 Request CBC WITH MANUAL DIFF ([id number])Indication: Diabetes mellitus type II, controlled, with no complications On: :59 Request MICROALBUMIN: CREATININE RATIO ([id number]) AND ([id number])Indication: Diabetes mellitus type 2, uncontrolled, without complications On: 18-Ejt-144423:10 Request PT (Prothrobim Time) ([id number])Indication: Pre-operative examination On: :13 Request PTT (Activated Partial Thromboplastin Time) ([id number])Indication: Pre-operative examination On: :13 Request CBC with manual diff ([id number])Indication: Pre-operative examination On: :13 Request Metabolic Panel, Basic ([id number])Indication: Pre-operative examination On: 46-Bfp-187000:11 Request Lipid Panel ([id number])Indication: Hypertension, benign On: :31 Request TSH ([id number])Indication: Hypertension, benign On: : Request URINALYSIS, W/ MICRO ([id number])Indication: Hypertension, benign On: : Request MICROALBUMIN: CREATININE RATIO ([id number]) AND ([id number])Indication: Hypertension, benign On: : Request METABOLIC PANEL, COMPREHENSIVE ([id number])Indication: Hypertension, benign On: Request LIPOPROTEIN, BLD, BY NMR ([id number])Indication: Hypertension, benign On: : Request LIPID PANEL ([id number])Indication: Hypertension, benign On: : Request CBC WITH MANUAL DIFF ([id number])Indication: Hypertension, benign On: 01-Gxu-890146:31 Request thin prep ([id number]) (std testing)Indication: Abdominal pain, acute, generalized On: : Request NEISSERIA ([id number]) (THIN PREP OBTAINED)Indication: Abdominal pain, acute, generalized On: : Request CHLAMYDIA ([id number]) (thin prep obtained)Indication: Abdominal pain, acute, generalized On: : Request INFCT ANTGN TRICH VAGIN DIRECT PRB ([id number])Indication: Abdominal pain, acute, generalized On: : Request GARDNERELLA VAG, NUCLEIC ACID DIR PROBE ([id number])Indication: Abdominal pain, acute, generalized On: Request NATHANIEL, NUCLEIC ACID DIRECT PROBE ([id number])Indication: Abdominal pain, acute, generalized On: : Request DAVID CULTURE-OTHER ([id number])Indication: Abdominal pain, acute, generalized On: : Request CBC (Auto) ([id number])Indication: Abdominal pain, acute, generalized On: : Request Metabolic Panel, Comprehensive ([id number])Indication: Abdominal pain, acute, generalized On: 86-Nuk-525310:26 Request Urinalysis, Office ([id number])Indication: Abdominal pain, acute, generalized On: 47-Gfd-961548:44 Request C-REACTIVE PROTEIN ([id number])Indication: Epigastric pain On: 2-Koc-195339:24 Request SED RATE ERYTHROCYTE ([id number])Indication: Epigastric pain On: 4-Cqf-876133:24 Request METABOLIC PANEL, COMPREHENSIVE ([id number])Indication: Epigastric pain On: 8-Ogq-651484:24 Request CBC WITH MANUAL DIFF ([id number])Indication: Epigastric pain On: 9-Zdm-765782:23 Request Hemoglobin Glyclated (HGB A1C) ([id number])Indication: Hypoglycemia On: :21 Request Lipid Panel ([id number])Indication: Hypercholesteremia On: 5-Xhs-220437:21 Request Planned Encounters Medical; 3 Month FU - On: 26-Oct-2018 13:30 [facility] Carlotta Dennis CNP, CNP, Mary E Planned Procedures TDAP VACCINE >7 IM ([id number])By: On: 18-Jul-2018 Intent Zeinab Reddy MD US DOPPLER CAROTID BILATERAL On: 18-Jul-2018 Intent ([id number])By: Zeinab Reddy MD DEXA SCAN AXIAL SKELETON ([id number])By: On: 18-Jul-2018 Intent Zeinab Reddy MD SCREENING DIGITAL TOMOSYNTHESIS OF On: 18-Jul-2018 Intent BREAST ([id number])By: Zeinab Reddy MD SCREENING DIGITAL TOMOSYNTHESIS OF On: 13-Jul-2017 Intent BREAST ([id number])By: Zeinab Reddy MD EKG ([id number])By: Zeinab Reddy MD On: 21-Nov-2016 Intent Ultrasound - PelvisBy: Barry GONZALEZ, On: 24-Oct-2016 Intent Zeinab Varma Comments: copy to Dr. [email or web address]. CT - Abdomen (IV Contrast Needed)By: On: 26-Aug-2016 Intent Zeinab Reddy MD Comments: attention adrenals. Flu Vaccine (Quadrivalent) 26863Cc: On: 04-Jul-2016 Intent Zeinab Reddy MD US DOPPLER CAROTID BILATERAL On: 26-May-2016 Intent ([id number])By: Zeinab Reddy MD DEXA SCAN AXIAL SKELETON ([id number])By: On: 26-May-2016 Intent Zeinab Reddy MD BILATERAL MAMMOGRAMS ([id number])By: On: 26-May-2016 Intent Zeinab Reddy MD Nuclear Stress Test/Stress On: 05-Aug-2014 Intent SPECT/TreadmillBy: Carlotta Dennis CNP, CNP, Carlotta Dobson Carotid DopplerBy: Zeinab Reddy MD On: 06-Jun-2014 Intent M Comments: dizzy MRI - Brain (IV Contrast Needed)By: On: 06-Jun-2014 Intent Zeinab Reddy MD Holter Monitor 24 hrsBy: Barry GONZALEZ, On: 06-Jun-2014 Intent Zeinab Varma EKG ([id number])By: Zeinab Reddy MD On: 02-Jun-2014 Intent Comments: see scanned document of test done to see results reviewed today with patient MAMMOGRAM, SCREENING, BOTH BREASTS On: 21-Jan-2014 Intent ([id number])By: Zeinab Reddy MD Eprescribed prescriptions ([id number])By: On: 21-Jan-2014 Intent Zeinab Reddy MD Aerosol Treatment ([id number])By: Jacy On: 07-Nov-2013 Intent Tracy MURPHY Comments: after aerosol - more a/e less inspir noise but lots of exp noise Spirometry ([id number])By: Jacy MURPHY On: 07-Nov-2013 Intent Tracy Comments: poor effort and difficult time diong with coughjing -- restriction shown Eprescribed prescriptions ([id number])By: On: 07-Nov-2013 Intent Tracy Louie DO Aerosol Treatment ([id number])By: Jeannie On: 24-Sep-2012 Intent GARTH AlyciaBronson Dennis CNP Alycia Eprescribed prescriptions ([id number])By: On: 12-Jun-2012 Intent Tania Ledbetter LPN IMMUNIZ ADMNIN, 1 VAC, SNGL/COMBO On: 12-Jun-2012 Intent ([id number])By: Tania Ledbetter LPN FLU VAC, SPLIT, >3 YEARS, INTRAMUSC On: 12-Jun-2012 Intent ([id number])By: Tania Ledbetter LPN ELECTROCARDIOGRAM, COMPLETE (ECG) On: 10-Apr-2012 Intent ([id number])By: Carlotta Dennis CNP, CNP Alycia Spirometry ([id number])By: Dwight MURPHY, On: 10-Jan-2011 Intent Valarie A Comments: done km- good effort and curve- mod obst Solu -Medrol Injection, 125 mg On: 10-Jan-2011 Intent ([id number])By: Jessica Alba LPN Comments: 2ml given im rt hip lotobjk2 exp 1-14 Pulse Oximetry ([id number])By: Dwight MURPHY, On: 10-Jan-2011 Intent Valarie A Comments: 96% Aerosol Treatment ([id number])By: Dwight On: 10-Jan-2011 Intent Valarie MURPHY Comments: done with albuterol 0.83%pt tolerated well MAMMOGRAM, SCREENING, BOTH BREASTS On: 30-Nov-2010 Intent ([id number])By: Zeinab Reddy MD MAMMOGRAM, SCREENING, BOTH BREASTS On: 23-Jul-2009 Intent ([id number])By: Zeinab Reddy MD EKG ([id number])By: Zeinab Reddy MD On: 23-Jul-2009 Intent Radiology - Abdomen SeriesBy: Jacy On: 19-Dec-2008 Intent Tracy MURPHY TD Injection , IM ([id number])By: On: 21-Jan-2008 Intent Zeinab Reddy MD MAMMOGRAM, SCREENING, BOTH BREASTS On: 21-Jan-2008 Intent ([id number])By: Zeinab Reddy MD Planned Medications INJECTION, METHYLPREDNISOLONE [...] prophylactic vaccination and inoculation against influenza Encounters Office Visit On: 18-Jul-2018 14:03 Encounter Diagnosis: Well woman exam (Renamed from Encounter for well woman exam), Family history of cardiovascular disease, Elevated testosterone level in female, PCO (polycystic ovaries), Sleep disorder, Irritable bowel syndrome, End: 18-Jul-2018 15:10 Vitamin D deficiency, Carotid stenosis, Ocular migraine, [...] for Tdap vaccination (Renamed from Need for xfgsqyxvlh-gwmekbr-wjgomwotr (Tdap) vaccine, adult/adolescent) [facility] Office [...] regimen and considered effective by patient. Bryant neftaly sleeps 7 hours per night. Impact of [...] not using any method of contraception at [facility] End: 30-Nov-2010 15:39 s time. Patient [...] (Renamed from Hypercholesteremia (272.0)), Sleep disorder (780.50), [facility] V70.0 [facility] Payers Aliza Huff; a guarantor
--- OUTSIDE RECORDS SUMMARY | 2018-10-10 11:16 | XMS RPT_ITS | Continuity of Care Document ---
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 Phosphatase, S 87 [iU]/L (Normal) Range: 39-117 Bilirubin, Direct 0.20 mg/dL (Normal) Range: 0.00-0.40 Bilirubin, Total 0.9 mg/dL (Normal) Range: 0.0-1.2 Albumin, Serum 4.1 g/dL (Normal) Range: 3.5-5.5 Protein, Total, Serum 7.2 g/dL (Normal) Range: 6.0-8.5 16-Ppy-055225:54 LIPOPROTEIN, BLD, BY NMR Comments: PATIENT WAS FASTINGPERFORMED BY: BN [facility] Bomqclcoet5886 [facility] [id number] BY: CB [facility] Krzzku8088 Manuel [facility] [id number] (99112) LP-IR Score 82 (Abnormal) Comments: INSULIN RESISTANCE MARKER <--Insulin Sensitive Insulin Resistant--> Percentile in Reference PopulationInsulin Resistance ScoreLP-IR Score Low 25th 50th 75th High <27 27 45 63 >63LP-IR Score is inaccurate if patient is non-fasting. .The LP-IR score is a laboratory developed i [facility] that has beenassociated with insulin [...] 1600 - 2000 Very High > 2000 12-Xxr-936016:54 CALCIFEDIOL (55304) Comments: PATIENT WAS FASTINGPERFORMED BY: Golfsmith[address] [id number] BY: real5D [facility] [id number] Vitamin D, 25-Hydroxy 35.2 ng/mL (Normal) Range: 30.0-100.0 Comments: Vitamin D deficiency has been defined by the [place] ofTrihealthcine and an Endocrine Society practice guideline as alevel of serum 25-OH vitamin D less than 20 ng/mL (1,2).The Endocrine Society went on to further define vitamin Dinsufficiency as a level between 21 and 29 ng/mL (2).1. IOM ([place] of Medicine). 2010. Dietary reference intakes for calcium and D. [place]: The National Academies Press.2. Ritika MF, Demetrio ARORA, Barbara PENNY, et al. Evaluation, treatment, and prevention of vitamin D deficiency: an Endocrine Society clinical practice guideline. JCEM. 2010; 96(7):1911-30. 54-Wbw-023615:54 TESTOSTERONE FREE (29109) Comments: PATIENT WAS FASTINGPERFORMED BY: [employer] [id number] BY: [employer]70 [facility] [id number] Free Testosterone(Direct) 5.6 pg/mL (Abnormal) Range: 0.0-4.2 30-Rlk-753770:54 FSH AND LH (98941) Comments: PATIENT WAS FASTINGPERFORMED BY: [address] [id number] BY: [facility]6370 [facility] [id number] FSH 25.4 m[iU]/mL (Normal) Comments: Follicular phase 3.5 - 12.5 Ovulation phase 4.7 - 21.5 Luteal phase 1.7 - 7.7 Postmenopausal 25.8 - 134.8 LH 40.2 m[iU]/mL (Normal) Comments: Follicular phase 2.4 - 12.6 Ovulation phase 14.0 - 95.6 Luteal phase 1.0 - 11.4 Postmenopausal 7.7 - 58.5 39-Eay-183271:54 DHEA-S (DEHYDROEPIANDROSTERONE Comments: PATIENT WAS FASTINGPERFORMED BY: FinanzCheck[address] [id number] BY: [address] [id number] SULFATE) (87033) DHEA-Sulfate 119.9 ug/dL (Normal) Range: 29.4-220.5 6-Kux-080911:03 Thin prep Pap Comments: Source.............Cervix;EndocervixNo. of containers..01 CYTYC Thin Prep VialPATIENT NOT FASTINGPERFORMED BY: =G Lab[address] [id number] BY: [facility] (76867) (no STD rp [address] [id number] Information: [id number] testing) Age Gdln ACOG Testing 30-65 (Normal) 75-Xee-02994:48 URINE DAVID CULTURE-IDENTIFICATN Comments: PATIENT NOT FASTINGPERFORMED BY: [facility]6370 [facility] [id number] Information: [id number] (22020) Result 1 MUG (Normal) Comments: Mixed urogenital flora2,000 Colonies/mL Urine Culture,Comprehensive Final report (Normal) 03-Zsm-57407:05 Urinalysis, Office (96839) UA - LEUKOCYTE ESTERASE Negative (Normal) UA - NITRITE Negative (Normal) URINE UROBILINGN FANNY TIMED Normal mg/dL (Normal) UA - PROTEIN Negative mg/dL (Normal) UA - PH 5 (Abnormal) UA - BLOOD Non Hemolyzed Trace (Normal) UA - SPECIFIC GRAVITY 1.030 (Abnormal) UA - KETONES Negative mg/dL (Normal) UA - BILIRUBIN Negative (Normal) UA - GLUCOSE Negative (Normal) 19-Xpa-005899:37 URINE DAVID CULTURE-IDENTIFICATN Comments: PATIENT NOT FASTINGPERFORMED BY: [employer] Qgpkrg4568 [facility] [id number] Information: [id number] (91880) Antimicrobial MIHEAD (Normal) Comments: S = Susceptible; [...] pneumoniae (Abnormal) Urine Final report Culture,Comprehensive (Abnormal) 26-Nmq-655100:17 MICROALBUMIN: CREATININE RATIO Comments: PATIENT WAS FASTINGPERFORMED BY: [employer] Hchume1669 [facility] [id number] (20252) AND (84266) Microalb/Creat Ratio 6.1 {mg/g_creat} (Normal) Range: 0.0-30.0 Microalbumin, Urine 6.8 ug/mL (Normal) Range: 0.0-17.0 Comments: Effective January 25, 2016 the reference interval for Microalbumin, Urine will be changing to: Not Estab. Creatinine, Urine 111.5 mg/dL (Normal) Range: 15.0-278.0 Comments: Effective January 25, 2016 the reference interval for Creatinine, Urine will be changing to: Not Estab. 40-Jxo-612576:17 METABOLIC PANEL, COMPREHENSIVE Comments: PATIENT WAS FASTINGPERFORMED BY: DESI [employer]70 [facility] [id number] (34464) ALT (SGPT) 20 [iU]/L (Normal) Range: 0-32 [...] Glucose, Serum 118 mg/dL (Abnormal) Range: 65-99 16-Fzh-363981:17 LIPID PANEL (05697) Comments: PATIENT WAS FASTINGPERFORMED BY: [employer]70 [facility] [id number] LDL/HDL Ratio 3.4 {ratio_units} (Abnormal) Range: 0.0-3.2 [...] Cholesterol, Total 283 mg/dL (Abnormal) Range: 100-199 80-Usy-528492:17 CBC with auto diff Comments: PATIENT WAS FASTINGPERFORMED BY: [facility] VinelandWyknrc3141 [facility] [id number] Information: [id number] (00929) Immature Grans (Abs) 0.0 {x10E3/uL} (Normal) Range: [...] {x10E3/uL} (Normal) Range: 3.4-10.8 :27 Urinalysis, Office (40000) UA - LEUKOCYTE ESTERASE Trace (Normal) UA [...] GLUCOSE Negative (Normal) :21 HgA1C , Office (06917) HgA1C , Office 6.6 % (Normal) Range: 4.6 - 7.1 :23 HgA1C , Office (02094) HgA1C , Office 5.7 % (Normal) Range: 4.6 - 7.1 :23 Blood Glucose , Office (97083) Blood Glucose , Office 101 (Normal) :42 [...] CHOL 199 mg/dL (Normal) Comments: <200 mg/dL Xoakpuonj986-229 mg/dL Borderline>240 mg/dL High Risk 98-Flb-064119:01 Renal function Panel Comments: PATIENT NOT FASTINGPERFORMED BY: [facility] [id number] Information: [id number] (73779) Albumin, Serum 4.5 g/dL (Normal) Range: 3.5-5.5 [...] Glucose, Serum 105 mg/dL (Abnormal) Range: 65-99 26-Wtn-908629:01 MAGNESIUM (57020) Comments: PATIENT NOT FASTINGPERFORMED BY: [employer] Oaqmad6121 [facility] [id number] Magnesium, Serum 1.8 mg/dL (Normal) Range: 1.6-2.6 11-Ywr-201046:54 C-Reactive Protein (93381) Comments: PATIENT NOT FASTINGPERFORMED BY: [employer] Gjnjko6907 [facility] [id number] C-Reactive Protein, Quant 2.5 mg/L (Normal) Range: 0.0-4.9 :54 Sed Rate Erythrocyte (97257) Comments: PATIENT NOT FASTINGPERFORMED BY: [facility]6370 [facility] [id number] Sedimentation Rate-Westergren 4 mm/h (Normal) Range: 0-40 :54 T4, FREE (THYROXINE) (42893) Comments: PATIENT NOT FASTINGPERFORMED BY: [address] [id number] T4,Free(Direct) 1.32 ng/dL (Normal) Range: 0.82-1.77 :54 TSH (16662) Comments: PATIENT NOT FASTINGPERFORMED BY: [place] 2714170 [facility] [id number] Information: [id number] TSH 1.770 {uIU/mL} (Normal) Range: 0.450-4.500 :39 HgA1C , Office (81223) HgA1C , Office 5.8 % (Normal) Range: 4.6 - 7.1 :39 Blood Glucose , Office (07951) Blood Glucose , Office 96 (Normal) :23 LIPID PANEL (67210) Comments: PATIENT WAS FASTINGPERFORMED BY: [place] 2714170 [facility] [id number] Information: [id number] LDL/HDL Ratio 2.6 {ratio_units} (Normal) Range: 0.0-3.2 LDL Cholesterol Calc 99 mg/dL (Normal) Range: 0-99 VLDL Cholesterol Jesús 41 mg/dL (Abnormal) Range: 5-40 HDL Cholesterol 38 mg/dL (Abnormal) Comments: According to ATP-III Guidelines, HDL-C >59 mg/dL is considered anegative risk factor for CHD. Triglycerides 204 mg/dL (Abnormal) Range: 0-149 Cholesterol, Total 178 mg/dL (Normal) Range: 100-199 :23 HEPATIC FUNCTION PANEL (85324) Comments: PATIENT WAS FASTINGPERFORMED BY: [place] 2714170 [facility] [id number] ALT (SGPT) 23 [iU]/L (Normal) Range: 0-32 AST (SGOT) 19 [iU]/L (Normal) Range: 0-40 Alkaline Phosphatase, S 84 [iU]/L (Normal) Range: 39-117 Bilirubin, Direct 0.23 mg/dL (Normal) Range: 0.00-0.40 Bilirubin, Total 1.0 mg/dL (Normal) Range: 0.0-1.2 Albumin, Serum 4.4 g/dL (Normal) Range: 3.5-5.5 Protein, Total, Serum 7.2 g/dL (Normal) Range: 6.0-8.5 :42 MICROALBUMIN: CREATININE RATIO Comments: PATIENT WAS FASTINGPERFORMED BY: [facility]6370 [facility] [id number] (30496) AND (85989) Creatinine, Urine 152.1 mg/dL (Normal) Range: 15.0-278.0 Microalb/Creat Ratio 23.3 {mg/g_creat} (Normal) Range: 0.0-30.0 Microalbumin, Urine 35.5 ug/mL (Abnormal) Range: 0.0-17.0 :42 METABOLIC PANEL, COMPREHENSIVE Comments: PATIENT WAS FASTINGPERFORMED BY: [facility] [id number] (35540) ALT (SGPT) 18 [iU]/L (Normal) Range: 0-32 [...] mg/dL (Abnormal) Range: 65-99 :42 LIPID PANEL (72610) Comments: PATIENT WAS FASTINGPERFORMED BY: [employer]70 [facility] [id number] LDL/HDL Ratio 3.5 {ratio_units} (Abnormal) Range: 0.0-3.2 [...] MANUAL DIFF Comments: PATIENT WAS FASTINGPERFORMED BY: [employer]70 [facility] [id number] Information: [id number] (70235) Immature Grans (Abs) 0.0 {x10E3/uL} (Normal) Range: [...] 3.77-5.28 WBC 7.7 {x10E3/uL} (Normal) Range: 3.4-10.8 3-Erb-564249:35 HgA1C , Office (59768) HgA1C , Office 6.4 % (Normal) Range: 4.6 - 7.1 4-Fsl-922216:34 Blood Glucose , Office (66216) Blood Glucose , Office 124 (Normal) 91-Eeg-450880:21 Rapid Flu (37051 x 2) Influenza A Ag negative (Normal) 94-Gmk-304336:23 MICROALBUMIN: CREATININE RATIO Comments: PATIENT NOT FASTINGPERFORMED BY: [facility]Co[facility] VinelandCasvym9161 [facility] [id number] (15464) AND (52279) Microalb/Creat Ratio 3.5 {mg/g_creat} (Normal) Range: 0.0-30.0 Microalbumin, Urine 5.6 ug/mL (Normal) Range: 0.0-17.0 Creatinine, Urine 158.0 mg/dL (Normal) Range: 15.0-278.0 65-Jsj-133419:23 METABOLIC PANEL, COMPREHENSIVE Comments: PATIENT NOT FASTINGPERFORMED BY: SunModularInspira Medical Center VinelandYhyugv2953 [facility] [id number] (34577) ALT (SGPT) 16 [iU]/L (Normal) Range: 0-32 [...] Glucose, Serum 101 mg/dL (Abnormal) Range: 65-99 85-Xyh-199283:23 CBC WITH MANUAL DIFF Comments: PATIENT NOT FASTINGPERFORMED BY: FinanzCheckAscension [facility]6370 [facility] [id number] Information: [id number] (26297) Immature Grans (Abs) 0.0 {x10E3/uL} (Normal) Range: [...] Range: 4.0-10.5 :52 Blood Glucose , Office (50166) Blood Glucose , Office 116 (Normal) :52 HgA1C , Office (21405) HgA1C , Office 6.2 % (Normal) Range: 4.6 - 7.1 :37 Rapid Flu (66995 x 2) Influenza A Ag negative (Normal) :27 HgA1C , Office (19733) HgA1C , Office 5.7 % (Normal) Range: 4.6 - 7.1 29-Lif-299812:27 Blood Glucose , Office (34786) Blood Glucose , Office 98 (Normal) 56-Iuy-743333:18 CREATININE CLEARANCE Comments: PATIENT NOT FASTINGPERFORMED BY: SunModularInspira Medical Center VinelandCczapu0499 [facility] [id number] Information: [id number] (77897) 24 HOUR Creatinine Clearance 104 mL/min (Normal) Range: 88-128 Comments: The above range is based on 1.73 square meter average body surfacearea. Creatinine, Ur 24hr 1169.7 {mg/24_hr} (Normal) Range: 800.0-1800.0 Creatinine, Urine 55.7 mg/dL (Normal) Range: 15.0-278.0 eGFR If Africn Am 99 mL/min/1.73 (Normal) eGFR If NonAfricn Am 86 mL/min/1.73 (Normal) Creatinine, Serum 0.78 mg/dL (Normal) Range: 0.57-1.00 99-Hhd-604181:43 LIPID PANEL (34637) Comments: PATIENT WAS FASTINGPERFORMED BY: FinanzCheckCoInspira Medical Center VinelandVitmlw2232 [facility] [id number] Information: [id number] LDL/HDL Ratio 3.0 {ratio_units} (Normal) Range: 0.0-3.2 LDL Cholesterol Calc 145 mg/dL (Abnormal) Range: 0-99 VLDL Cholesterol Jesús 61 mg/dL (Abnormal) Range: 5-40 HDL Cholesterol 48 mg/dL (Normal) Comments: According to ATP-III Guidelines, HDL-C >59 mg/dL is considered anegative risk factor for CHD. Triglycerides 307 mg/dL (Abnormal) Range: 0-149 Cholesterol, Total 254 mg/dL (Abnormal) Range: 100-199 87-Fkk-651379:53 HgA1C , Office (09946) HgA1C , Office 6.8 % (Normal) Range: 4.6 - 7.1 49-Mra-130980:53 Blood Glucose , Office (32309) Blood Glucose , Office 111 (Normal) 83-Ulq-474000:03 Thin prep Pap Comments: Source.............Cervical;EndocervicalNo. of containers..01 CYTYC Thin Prep VialPATIENT NOT FASTINGPERFORMED BY: FinanzCheckAzrp [address] [facility] [place] [id number] Information: [id number] (88142) Note: PAPSMR (Normal) Comments: The Pap [...] is identified.V72.31 ; Routine gynecological examinationCyntyovany Nails Riveting Machine Operator Automatic (ASCP) 92-Ros-092024:06 HgA1C , Office (15525) HgA1C , Office 5.8 % (Normal) Range: 4.6 - 7.1 78-Prq-879288:06 Blood Glucose , Office (00835) Blood Glucose , Office 100 (Normal) 21-Wbn-605897:19 BILAT SCRN DIGITAL & CAD Radiology Report See Note (Normal) Comments: Exam Number: [id number] MAMMOGRAM, BILATERAL SCREENING DIGITAL AND CAD HISTORYRoutine [...] mammograms werealso examined with computer-aided detection software (ImageGrabCAD tami, [employer] Reported By: CASEY WARD M.D. :27 HgA1C , Office (66481) HgA1C , Office 5.7 % (Normal) Range: [...] T PROT 7.6 g/dL (Normal) Range: 6.4-8.2 47-Sje-43842:11 ROUTINE UA BILIRUBIN URINE SeeNote (Normal) Comments: [...] 0.2 EU/dl (Normal) Range: 0.2 - 1.0 64-Nht-877760:09 Pap Lb, Ct-Ng, Comments: Source.............Cervical;EndocervicalNo. of containers..01 CYTYC Thin Prep VialClinical Information: [id number] PERFORMED BY: =G [facility] [id number] HPV-hr . . (Normal) Chlamydia, Nuc. Acid Amp Negative (Normal) DIAGNOSIS: SPRCS (Normal) Comments: NEGATIVE FOR INTRAEPITHELIAL LESION AND MALIGNANCY.Satisfactory for evaluation. Endocervical and/or squamous metaplasticcells (endocervical component) are present.789.07 ; Abdominal pain, g eneralizedG Iveth Ugalde, Supervisory Riveting Machine Operator Automatic (ASCP) Gonococcus, Nuc. Acid Amp Negative (Normal) [...] :08 Genital Culture, Routine Comments: PERFORMED BY: FinderlyCounts include 234 beds at the [facility] [id number] Genital Culture, Routine Final report (Normal) Result 1 RGF (Normal) Comments: Routine genital gerard. :08 Vaginitis/Vaginosis, DNA Probe Comments: Clinical Information: SRC:VA PERFORMED BY: MobiPixie63EntegrionCounts include 234 beds at the [facility] [id number] Nathaniel species Negative (Normal) Gardnerella vaginalis Negative (Normal) Trichomonas vaginalis Negative (Normal) 6-Ogt-092900:5 C-REACTIVE PROT 5.99 mg/L (Normal) Range: 0.0-6.0 0 Comments: Test performed using the Dimension C-Reactive ProteinExtended Range assay method. This assay meets the AHA/CDC 2003 recommendations fordetermining patients at high risk for cardiovasculardisease. Reference: High risk CRP >3.0 mg/L 9-Llr-177522:50 CBCD,SMEAR DIFF BAND 4 % (Normal) Range: [...] Report See Note (Normal) Comments: Exam Number: [id number] ACUTE ABDOMEN INCLUDING CHEST HISTORYEpigastric pain since [...] methodology of Hgb A1C has changed to Solano BehringDimension RXL. No significant changes in patientresults [...] Thin prep Pap Comments: Source.............Cervical;EndocervicalLMP / Prev Treat...TPR=[id number]. of containers..01 CYTYC Thin Prep VialPATIENT NOT FASTINGClinical Information: ADD [id number] PERFORMED BY: FinanzCheckAz (70387) [address] [id number] . . (Normal) DIAGNOSIS: SPRCS (Normal) Comments: [...] resulttherefore, no HPV testing was performed. . 22-Igm-65715:28 BILAT SCRN DIGITAL & CAD Radiology Report See Note (Normal) Comments: Exam Number: [id number] BILATERAL SCREENING DIGITAL MAMMOGRAM CLINICAL INFORMATIONScreening. Bilateral [...] mammogramswere also examined with computer- aided detection software(Paice, AdRoll.). Reported By: BALBIR GATICA M.D. Plan of [...] V70.0 Planned Observations LIPOPROTEIN, BLD, BY NMR (74944)Indication: Hypercholesteremia On: 40-Wzn-930282:44 Request HEPATIC FUNCTION PANEL (80296)Indication: Hypercholesteremia On: 07-Qgo-475725:44 Request Homocysteine, Plasma (18735)Indication: MTHFR mutation On: 14-Uaa-320109:24 Request MICROALBUMIN: CREATININE RATIO (47885) AND (13596)Indication: Hypertension, benign On: 37-Smg-065942:01 Request URINALYSIS (81920)Indication: Hypertension, benign On: 62-Wtk-082999:01 Request D-Dimer (57317)Indication: Multiple pulmonary emboli On: 7-Qxb-944635:21 Request Rapid Strep Test, Office (39691)Indication: Acute pharyngitis On: 63-Wmm-710755:53 Request Homocysteine, Plasma (91119)Indication: Elevated serum homocysteine level On: 59-Ozt-897892:08 Request CBC W/AUTO DIFF WBC (86938)Indication: Multiple pulmonary emboli On: 00-Auz-650541:45 Request Homocysteine, Plasma (80217)Indication: Multiple pulmonary emboli On: :24 Request Comments: please add to labs drawn pre coag MTHFR (71817)Indication: Multiple pulmonary emboli On: :24 Request Comments: please add to labs drawn pre coag TESTOSTERONE FREE (44274)Indication: Elevated testosterone level in female On: 22-Sep-20169:52 Request METABOLIC PANEL, COMPREHENSIVE (13107)Indication: Hypercholesteremia On: 7-Scl-182013:14 Request LIPOPROTEIN, BLD, BY NMR (94321)Indication: Hypercholesteremia On: :14 Request Cortisol,Urinary Free 24- Hour Urine (55541)Indication: Diabetes mellitus type II, controlled, with no complications On: 26-May-20168:34 Request URINALYSIS (46327)Indication: UTI (urinary tract infection) On: 27-Zji-801127:04 Request Comments: recheck 10 days after ATB URINE DAVID CULTURE-IDENTIFICATN (72005)Indication: UTI (urinary tract infection) On: 50-Tdl-277533:03 Request Comments: recheck 10 days after ATB CBC with auto diff (26146)Indication: Diabetes mellitus type II, controlled, with no complications On: 94-Fsg-377105:14 Request LIPID PANEL (17013)Indication: Hypercholesteremia On: 88-Bmt-858360:14 Request METABOLIC PANEL, COMPREHENSIVE (62962)Indication: Diabetes mellitus type II, controlled, with no complications On: 02-Zpi-207927:14 Request MICROALBUMIN: CREATININE RATIO (04835) AND (27094)Indication: Diabetes mellitus type II, controlled, with no complications On: 87-Ycg-615308:14 Request Hemoglobin Glyclated (HGB A1C) (81586)Indication: Diabetes mellitus type II, controlled, with no complications On: 49-Geq-901339:14 Request METABOLIC PANEL, COMPREHENSIVE (51575)Indication: Diabetes mellitus type II, controlled, with no complications On: 11-Mep-251800:20 Request LIPID PANEL (23209)Indication: Diabetes mellitus type II, controlled, with no complications On: 08-Nvs-098090:20 Request CBC W/AUTO DIFF WBC (00471)Indication: Diabetes mellitus type II, controlled, with no complications On: 30-Orw-327355:20 Request MICROALBUMIN: CREATININE RATIO (85918) AND (01293)Indication: Diabetes mellitus type II, controlled, with no complications On: :59 Request METABOLIC PANEL, COMPREHENSIVE (75595)Indication: Diabetes mellitus type II, controlled, with no complications On: :59 Request LIPID PANEL (78407)Indication: Diabetes mellitus type II, controlled, with no complications On: :59 Request CBC WITH MANUAL DIFF (39355)Indication: Diabetes mellitus type II, controlled, with no complications On: :59 Request MICROALBUMIN: CREATININE RATIO (07814) AND (77102)Indication: Diabetes mellitus type 2, uncontrolled, without complications On: 17-Lbg-661689:10 Request PT (Prothrobim Time) (20991)Indication: Pre-operative examination On: :13 Request PTT (Activated Partial Thromboplastin Time) (35363)Indication: Pre-operative examination On: :13 Request CBC with manual diff (22627)Indication: Pre-operative examination On: :13 Request Metabolic Panel, Basic (26050)Indication: Pre-operative examination On: 79-Jft-861118:11 Request Lipid Panel (81698)Indication: Hypertension, benign On: :31 Request TSH (66845)Indication: Hypertension, benign On: : Request URINALYSIS, W/ MICRO (62679)Indication: Hypertension, benign On: : Request MICROALBUMIN: CREATININE RATIO (48996) AND (44996)Indication: Hypertension, benign On: : Request METABOLIC PANEL, COMPREHENSIVE (72582)Indication: Hypertension, benign On: Request LIPOPROTEIN, BLD, BY NMR (52221)Indication: Hypertension, benign On: : Request LIPID PANEL (09125)Indication: Hypertension, benign On: : Request CBC WITH MANUAL DIFF (47901)Indication: Hypertension, benign On: 86-Ptu-216386:31 Request thin prep (76870) (std testing)Indication: Abdominal pain, acute, generalized On: : Request NEISSERIA (24081) (THIN PREP OBTAINED)Indication: Abdominal pain, acute, generalized On: : Request CHLAMYDIA (17750) (thin prep obtained)Indication: Abdominal pain, acute, generalized On: : Request INFCT ANTGN TRICH VAGIN DIRECT PRB (74705)Indication: Abdominal pain, acute, generalized On: : Request GARDNERELLA VAG, NUCLEIC ACID DIR PROBE (28387)Indication: Abdominal pain, acute, generalized On: Request NATHANIEL, NUCLEIC ACID DIRECT PROBE (77119)Indication: Abdominal pain, acute, generalized On: : Request DAVID CULTURE-OTHER (75462)Indication: Abdominal pain, acute, generalized On: : Request CBC (Auto) (24921)Indication: Abdominal pain, acute, generalized On: : Request Metabolic Panel, Comprehensive (32705)Indication: Abdominal pain, acute, generalized On: 74-Amk-304361:26 Request Urinalysis, Office (45299)Indication: Abdominal pain, acute, generalized On: 61-Fap-805148:44 Request C-REACTIVE PROTEIN (34576)Indication: Epigastric pain On: 7-Bit-864426:24 Request SED RATE ERYTHROCYTE (44509)Indication: Epigastric pain On: 7-Ibi-543113:24 Request METABOLIC PANEL, COMPREHENSIVE (62723)Indication: Epigastric pain On: [id number] Request CBC WITH MANUAL DIFF ([id number])Indication: Epigastric pain On: 8-Iah-[id number]:23 Request Hemoglobin Glyclated (HGB A1C) ([id number])Indication: Hypoglycemia On: :21 Request Lipid Panel ([id number])Indication: Hypercholesteremia On: 8-Aia-478160:21 Request Planned Encounters Medical; 3 Month FU - On: 26-Oct-2018 13:30 [facility] Carlotta Dennis CNP, CNP, Mary E Planned Procedures TDAP VACCINE >7 IM ([id number])By: On: 18-Jul-2018 Intent Zeinab Reddy MD US DOPPLER CAROTID BILATERAL On: 18-Jul-2018 Intent ([id number])By: Zeinab Reddy MD DEXA SCAN AXIAL SKELETON ([id number])By: On: 18-Jul-2018 Intent Zeinab Reddy MD SCREENING DIGITAL TOMOSYNTHESIS OF On: 18-Jul-2018 Intent BREAST ([id number])By: Zeinab Reddy MD SCREENING DIGITAL TOMOSYNTHESIS OF On: 13-Jul-2017 Intent BREAST ([id number])By: Zeinab Reddy MD EKG ([id number])By: Zeinab Reddy MD On: 21-Nov-2016 Intent Ultrasound - PelvisBy: Barry GONZALEZ, On: 24-Oct-2016 Intent Zeinab Varma Comments: copy to Dr. mcdaniel. CT - Abdomen (IV Contrast Needed)By: On: 26-Aug-2016 Intent Zeinab Reddy MD Comments: attention adrenals. Flu Vaccine (Quadrivalent) [id number]: On: 04-Jul-2016 Intent Zeinab Reddy MD US DOPPLER CAROTID BILATERAL On: 26-May-2016 Intent ([id number])By: Zeinab Reddy MD DEXA SCAN AXIAL SKELETON ([id number])By: On: 26-May-2016 Intent Zeinab Reddy MD BILATERAL MAMMOGRAMS ([id number])By: On: 26-May-2016 Intent Zeinab Reddy MD Nuclear Stress Test/Stress On: 05-Aug-2014 Intent SPECT/TreadmillBy: Carlotta Dennis CNP, CNP, Carlotta Dobson Carotid DopplerBy: Zeinab Reddy MD On: 06-Jun-2014 Intent M Comments: dizzy MRI - Brain (IV Contrast Needed)By: On: 06-Jun-2014 Intent Zeinab Reddy MD Holter Monitor 24 hrsBy: Barry GONZALEZ, On: 06-Jun-2014 Intent Zeinab Varma EKG ([id number])By: Zeinab Reddy MD On: 02-Jun-2014 Intent Comments: see scanned document of test done to see results reviewed today with patient MAMMOGRAM, SCREENING, BOTH BREASTS On: 21-Jan-2014 Intent ([id number])By: Zeinab Reddy MD Eprescribed prescriptions ([id number])By: On: 21-Jan-2014 Intent Zeinab Reddy MD Aerosol Treatment ([id number])By: Jacy On: 07-Nov-2013 Intent Tracy MURPHY Comments: after aerosol - more a/e less inspir noise but lots of exp noise Spirometry ([id number])By: Jacy MURPHY On: 07-Nov-2013 Intent Tracy Comments: poor effort and difficult time diong with coughjing -- restriction shown Eprescribed prescriptions ([id number])By: On: 07-Nov-2013 Intent Tracy Louie DO Aerosol Treatment ([id number])By: Jeannie On: 24-Sep-2012 Intent GARTH AlyciaBronson Dennis CNP Alycia Eprescribed prescriptions ([id number])By: On: 12-Jun-2012 Intent Tania Ledbetter LPN IMMUNIZ ADMNIN, 1 VAC, SNGL/COMBO On: 12-Jun-2012 Intent ([id number])By: Tania Ledbetter LPN FLU VAC, SPLIT, >3 YEARS, INTRAMUSC On: 12-Jun-2012 Intent ([id number])By: Tania Ledbetter LPN ELECTROCARDIOGRAM, COMPLETE (ECG) On: 10-Apr-2012 Intent ([id number])By: Carlotta Dennis CNP, CNP Alycia Spirometry ([id number])By: Dwight MURPHY, On: 10-Jan-2011 Intent Valarie A Comments: done km- good effort and curve- mod obst Solu -Medrol Injection, 125 mg On: 10-Jan-2011 Intent ([id number])By: Jessica Alba LPN Comments: 2ml given im rt hip lotobjk2 exp 1-14 Pulse Oximetry ([id number])By: Dwight MURPHY, On: 10-Jan-2011 Intent Valarie A Comments: 96% Aerosol Treatment ([id number])By: Dwight On: 10-Jan-2011 Intent Vlaarie MURPHY Comments: done with albuterol 0.83%pt tolerated well MAMMOGRAM, SCREENING, BOTH BREASTS On: 30-Nov-2010 Intent ([id number])By: Zeinab Reddy MD MAMMOGRAM, SCREENING, BOTH BREASTS On: 23-Jul-2009 Intent ([id number])By: Zeinab Reddy MD EKG ([id number])By: eZinab Reddy MD On: 23-Jul-2009 Intent Radiology - Abdomen SeriesBy: Jacy On: 19-Dec-2008 Intent Tracy MURPHY TD Injection , IM ([id number])By: On: 21-Jan-2008 Intent Zeinab Reddy MD MAMMOGRAM, SCREENING, BOTH BREASTS On: 21-Jan-2008 Intent ([id number])By: Zeinab Reddy MD Planned Medications INJECTION, METHYLPREDNISOLONE [...] for Tdap vaccination (Renamed from Need for osnbtpmdpc-rszxaes-kwqgndipj (Tdap) vaccine, adult/adolescent) [facility] [...] not using any method of contraception at [facility] End: 30-Nov-2010 15:39 s time. Patient [...] ) and screening, visual acuity (2005 Dr. eL wears glasses ). Encounter Diagnosis: Headache (784.0), Hemorrhoids (455.8), arthritis,unspecified (716.90), Obesity (278.00), Depression/Anxiety (300.4), Impaired fasting glucose (790.21), Hypoglycemia (251.2), EKG 4-08 (Renamed from Hypercholesteremia (272.0)), Sleep disorder (780.50), [facility] V70.0 [facility] Payers Aliza Huff; a guarantor
--- OUTSIDE RECORDS SUMMARY | 2018-10-10 11:17 | XMS RPT_ITS | Continuity of Care Document ---
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 =G [facility] Xnayfjisan869 [facility] W [id number] BY: WB [facility] rfx 16/18,[address] [id number] HPV Aptima Negative (Normal) Comments: This test [...] evaluation. No endocervical component is identified.Z01.419Margarita Reagan [place] (ASCP) :54 HEPATIC FUNCTION PANEL Comments: PATIENT WAS FASTINGPERFORMED BY: BN [facility] Fevuzajhzr1373 [facility] [id number] BY: CB [facility] Erpnyr9901 [facility] [id number] (11303) ALT (SGPT) 15 [iU]/L (Normal) Range: 0-32 AST (SGOT) 10 [iU]/L (Normal) Range: 0-40 Alkaline Phosphatase, S 87 [iU]/L (Normal) Range: 39-117 Bilirubin, Direct 0.20 mg/dL (Normal) Range: 0.00-0.40 Bilirubin, Total 0.9 mg/dL (Normal) Range: 0.0-1.2 Albumin, Serum 4.1 g/dL (Normal) Range: 3.5-5.5 Protein, Total, Serum 7.2 g/dL (Normal) Range: 6.0-8.5 74-Tgp-564087:54 LIPOPROTEIN, BLD, BY NMR Comments: PATIENT WAS FASTINGPERFORMED BY: BN [facility] Xgkhvsaphh6083 [facility] [id number] BY: CB [facility] Fojabh9721 [facility] [id number] (84305) LP-IR Score 82 (Abnormal) Comments: INSULIN RESISTANCE MARKER <--Insulin Sensitive Insulin Resistant--> Percentile in Reference PopulationInsulin Resistance ScoreLP-IR Score Low 25th 50th 75th High <27 27 45 63 >63LP-IR Score is inaccurate if patient is non-fasting. .The LP-IR score is a laboratory developed i [facility] that has beenassociated with insulin [...] were developed and their performance characteristicsdetermined by [employer]. These assays have not been cleared by [...] 1600 - 2000 Very High > 2000 00-Gpn-130490:54 CALCIFEDIOL (58034) Comments: PATIENT WAS FASTINGPERFORMED BY: BN [facility] [address] [id number] BY: CB [facility] Wwuwxv8530 [facility] [id number] Vitamin D, 25-Hydroxy 35.2 ng/mL (Normal) Range: 30.0-100.0 Comments: Vitamin D deficiency has been defined by the [place] of[place]icine and an Endocrine Society practice guideline as alevel of serum 25-OH vitamin D less than 20 ng/mL (1,2).The Endocrine Society went on to further define vitamin Dinsufficiency as a level between 21 and 29 ng/mL (2).1. IOM ([place] of Medicine). 2010. Dietary reference intakes for calcium and D. [place]: The National Academies Press.2. Ritika MF, Demetrio ARORA, Barbara PENNY, et al. Evaluation, treatment, and prevention of vitamin D deficiency: an Endocrine Society clinical practice guideline. JCEM. 2010; 96(7):1911-30. 64-Yfq-265484:54 TESTOSTERONE FREE (47128) Comments: PATIENT WAS FASTINGPERFORMED BY: [address] [id number] BY: [place] 5854470 [facility] [id number] Free Testosterone(Direct) 5.6 pg/mL (Abnormal) Range: 0.0-4.2 97-Xut-933035:54 FSH AND LH (00227) Comments: PATIENT WAS FASTINGPERFORMED BY: [address] [id number] BY: [place] 5854470 [facility] [id number] FSH 25.4 m[iU]/mL (Normal) Comments: Follicular phase 3.5 - 12.5 Ovulation phase 4.7 - 21.5 Luteal phase 1.7 - 7.7 Postmenopausal 25.8 - 134.8 LH 40.2 m[iU]/mL (Normal) Comments: Follicular phase 2.4 - 12.6 Ovulation phase 14.0 - 95.6 Luteal phase 1.0 - 11.4 Postmenopausal 7.7 - 58.5 93-Yyx-453843:54 DHEA-S (DEHYDROEPIANDROSTERONE Comments: PATIENT WAS FASTINGPERFORMED BY: [address] [id number] BY: [place] 5854470 [facility] [id number] SULFATE) (77361) DHEA-Sulfate 119.9 ug/dL (Normal) Range: 29.4-220.5 9-Yxy-208994:03 Thin prep Pap Comments: Source.............Cervix;EndocervixNo. of containers..01 CYTYC Thin Prep VialPATIENT NOT FASTINGPERFORMED BY: =G Lab[address] [id number] BY: 5211game (16146) (no STD rp [address] [id number] Information: [id number] testing) Age Gdln ACOG Testing 30-65 (Normal) 45-Lae-41468:48 URINE DAVID CULTURE-IDENTIFICATN Comments: PATIENT NOT FASTINGPERFORMED BY: Honest BuildingsJesse V[place] 6935570 [facility] [id number] Information: [id number] (87423) Result 1 MUG (Normal) Comments: Mixed urogenital flora2,000 Colonies/mL Urine Culture,Comprehensive Final report (Normal) 61-Gvd-31540:05 Urinalysis, Office (67547) UA - LEUKOCYTE ESTERASE Negative (Normal) UA - NITRITE Negative (Normal) URINE UROBILINGN FANNY TIMED Normal mg/dL (Normal) UA - PROTEIN Negative mg/dL (Normal) UA - PH 5 (Abnormal) UA - BLOOD Non Hemolyzed Trace (Normal) UA - SPECIFIC GRAVITY 1.030 (Abnormal) UA - KETONES Negative mg/dL (Normal) UA - BILIRUBIN Negative (Normal) UA - GLUCOSE Negative (Normal) 22-Bmd-152151:37 URINE DAVID CULTURE-IDENTIFICATN Comments: PATIENT NOT FASTINGPERFORMED BY: Honest BuildingsJesse [place] 6935570 [facility] [id number] Information: [id number] (19415) Antimicrobial MIHEAD (Normal) Comments: S = Susceptible; [...] pneumoniae (Abnormal) Urine Final report Culture,Comprehensive (Abnormal) 52-Nll-252497:17 MICROALBUMIN: CREATININE RATIO Comments: PATIENT WAS FASTINGPERFORMED BY: Honest BuildingsJesse V[place] 6935570 [facility] [id number] (65340) AND (51933) Microalb/Creat Ratio 6.1 {mg/g_creat} (Normal) Range: 0.0-30.0 Microalbumin, Urine 6.8 ug/mL (Normal) Range: 0.0-17.0 Comments: Effective January 25, 2016 the reference interval for Microalbumin, Urine will be changing to: Not Estab. Creatinine, Urine 111.5 mg/dL (Normal) Range: 15.0-278.0 Comments: Effective January 25, 2016 the reference interval for Creatinine, Urine will be changing to: Not Estab. 80-Feq-845664:17 METABOLIC PANEL, COMPREHENSIVE Comments: PATIENT WAS FASTINGPERFORMED BY: [facility]CoDeborah [facility] and Lung CenterSmfkmd2393 [facility] [id number] (10067) ALT (SGPT) 20 [iU]/L (Normal) Range: 0-32 [...] Glucose, Serum 118 mg/dL (Abnormal) Range: 65-99 90-Iua-851770:17 LIPID PANEL (46800) Comments: PATIENT WAS FASTINGPERFORMED BY: 5211gameDeborah Heart and Lung CenterTiyegn0718 [facility] [id number] LDL/HDL Ratio 3.4 {ratio_units} (Abnormal) Range: 0.0-3.2 [...] auto diff Comments: PATIENT WAS FASTINGPERFORMED BY: [place] Ruuquc2090 [facility] [id number] Information: [id number] (45395) Immature Grans (Abs) 0.0 {x10E3/uL} (Normal) Range: [...] {x10E3/uL} (Normal) Range: 3.4-10.8 :27 Urinalysis, Office (05627) UA - LEUKOCYTE ESTERASE Trace (Normal) UA [...] GLUCOSE Negative (Normal) :21 HgA1C , Office (49248) HgA1C , Office 6.6 % (Normal) Range: 4.6 - 7.1 :23 HgA1C , Office (37630) HgA1C , Office 5.7 % (Normal) Range: 4.6 - 7.1 :23 Blood Glucose , Office (50280) Blood Glucose , Office 101 (Normal) :42 [...] CHOL 199 mg/dL (Normal) Comments: <200 mg/dL Pwgkgdfwh486-475 mg/dL Borderline>240 mg/dL High Risk 61-Hca-611102:01 Renal function Panel Comments: PATIENT NOT FASTINGPERFORMED BY: [facility] [id number] Information: [id number] (14549) Albumin, Serum 4.5 g/dL (Normal) Range: 3.5-5.5 [...] Glucose, Serum 105 mg/dL (Abnormal) Range: 65-99 56-Isn-651105:01 MAGNESIUM (61341) Comments: PATIENT NOT FASTINGPERFORMED BY: Nexiin [place] [id number] Magnesium, Serum 1.8 mg/dL (Normal) Range: 1.6-2.6 :54 C-Reactive Protein (20046) Comments: PATIENT NOT FASTINGPERFORMED BY: [facility]6370 [facility] [id number] C-Reactive Protein, Quant 2.5 mg/L (Normal) Range: 0.0-4.9 :54 Sed Rate Erythrocyte (57613) Comments: PATIENT NOT FASTINGPERFORMED BY: [place] 5854470 [facility] [id number] Sedimentation Rate-Westergren 4 mm/h (Normal) Range: 0-40 :54 T4, FREE (THYROXINE) (12633) Comments: PATIENT NOT FASTINGPERFORMED BY: [facility] [id number] T4,Free(Direct) 1.32 ng/dL (Normal) Range: 0.82-1.77 :54 TSH (96291) Comments: PATIENT NOT FASTINGPERFORMED BY: [place] 5854470 [facility] [id number] Information: [id number] TSH 1.770 {uIU/mL} (Normal) Range: 0.450-4.500 :39 HgA1C , Office (68461) HgA1C , Office 5.8 % (Normal) Range: 4.6 - 7.1 :39 Blood Glucose , Office (59712) Blood Glucose , Office 96 (Normal) :23 LIPID PANEL (59112) Comments: PATIENT WAS FASTINGPERFORMED BY: [place] 5854470 [facility] [id number] Information: [id number] LDL/HDL Ratio 2.6 {ratio_units} (Normal) Range: 0.0-3.2 LDL Cholesterol Calc 99 mg/dL (Normal) Range: 0-99 VLDL Cholesterol Jesús 41 mg/dL (Abnormal) Range: 5-40 HDL Cholesterol 38 mg/dL (Abnormal) Comments: According to ATP-III Guidelines, HDL-C >59 mg/dL is considered anegative risk factor for CHD. Triglycerides 204 mg/dL (Abnormal) Range: 0-149 Cholesterol, Total 178 mg/dL (Normal) Range: 100-199 :23 HEPATIC FUNCTION PANEL (37953) Comments: PATIENT WAS FASTINGPERFORMED BY: Qoopl70 [facility] [id number] ALT (SGPT) 23 [iU]/L (Normal) Range: 0-32 AST (SGOT) 19 [iU]/L (Normal) Range: 0-40 Alkaline Phosphatase, S 84 [iU]/L (Normal) Range: 39-117 Bilirubin, Direct 0.23 mg/dL (Normal) Range: 0.00-0.40 Bilirubin, Total 1.0 mg/dL (Normal) Range: 0.0-1.2 Albumin, Serum 4.4 g/dL (Normal) Range: 3.5-5.5 Protein, Total, Serum 7.2 g/dL (Normal) Range: 6.0-8.5 :42 MICROALBUMIN: CREATININE RATIO Comments: PATIENT WAS FASTINGPERFORMED BY: Qoopl70 [facility] [id number] (89418) AND (94481) Creatinine, Urine 152.1 mg/dL (Normal) Range: 15.0-278.0 Microalb/Creat Ratio 23.3 {mg/g_creat} (Normal) Range: 0.0-30.0 Microalbumin, Urine 35.5 ug/mL (Abnormal) Range: 0.0-17.0 :42 METABOLIC PANEL, COMPREHENSIVE Comments: PATIENT WAS FASTINGPERFORMED BY: Qoopl70 [facility] [id number] (69378) ALT (SGPT) 18 [iU]/L (Normal) Range: 0-32 [...] mg/dL (Abnormal) Range: 65-99 :42 LIPID PANEL (86052) Comments: PATIENT WAS FASTINGPERFORMED BY: [employer]6370 [facility] [id number] LDL/HDL Ratio 3.5 {ratio_units} (Abnormal) Range: 0.0-3.2 [...] MANUAL DIFF Comments: PATIENT WAS FASTINGPERFORMED BY: [employer]6370 [facility] [id number] Information: [id number] (85871) Immature Grans (Abs) 0.0 {x10E3/uL} (Normal) Range: [...] (Normal) Range: 3.4-10.8 :35 HgA1C , Office (33130) HgA1C , Office 6.4 % (Normal) Range: 4.6 - 7.1 :34 Blood Glucose , Office (26403) Blood Glucose , Office 124 (Normal) 01-Ntu-117780:21 Rapid Flu (55219 x 2) Influenza A Ag negative (Normal) 90-Hpq-312972:23 MICROALBUMIN: CREATININE RATIO Comments: PATIENT NOT FASTINGPERFORMED BY: 5211gameDeborah Heart and Lung CenterKzntqf1340 [facility] [id number] (18399) AND (15016) Microalb/Creat Ratio 3.5 {mg/g_creat} (Normal) Range: 0.0-30.0 Microalbumin, Urine 5.6 ug/mL (Normal) Range: 0.0-17.0 Creatinine, Urine 158.0 mg/dL (Normal) Range: 15.0-278.0 79-Slh-103240:23 METABOLIC PANEL, COMPREHENSIVE Comments: PATIENT NOT FASTINGPERFORMED BY: 5211game Fctakg8518 [facility] [id number] (32579) ALT (SGPT) 16 [iU]/L (Normal) Range: 0-32 [...] Glucose, Serum 101 mg/dL (Abnormal) Range: 65-99 59-Xmy-988394:23 CBC WITH MANUAL DIFF Comments: PATIENT NOT FASTINGPERFORMED BY: LabCoDeborah Heart and Lung CenterWpslyu9898 [facility] [id number] Information: [id number] (13785) Immature Grans (Abs) 0.0 {x10E3/uL} (Normal) Range: [...] Range: 4.0-10.5 :52 Blood Glucose , Office (11157) Blood Glucose , Office 116 (Normal) 71-Rpt-217123:52 HgA1C , Office (34208) HgA1C , Office 6.2 % (Normal) Range: 4.6 - 7.1 :37 Rapid Flu (69313 x 2) Influenza A Ag negative (Normal) :27 HgA1C , Office (91349) HgA1C , Office 5.7 % (Normal) Range: 4.6 - 7.1 :27 Blood Glucose , Office (37740) Blood Glucose , Office 98 (Normal) :18 CREATININE CLEARANCE Comments: PATIENT NOT FASTINGPERFORMED BY: [facility]to[address] [id number] Information: [id number] (30328) 24 HOUR Creatinine Clearance 104 mL/min (Normal) Range: 88-128 Comments: The above range is based on 1.73 square meter average body surfacearea. Creatinine, Ur 24hr 1169.7 {mg/24_hr} (Normal) Range: 800.0-1800.0 Creatinine, Urine 55.7 mg/dL (Normal) Range: 15.0-278.0 eGFR If Africn Am 99 mL/min/1.73 (Normal) eGFR If NonAfricn Am 86 mL/min/1.73 (Normal) Creatinine, Serum 0.78 mg/dL (Normal) Range: 0.57-1.00 :43 LIPID PANEL (27408) Comments: PATIENT WAS FASTINGPERFORMED BY: LabCoNicole Ville 5201070 [facility] [id number] Information: [id number] LDL/HDL Ratio 3.0 {ratio_units} (Normal) Range: 0.0-3.2 LDL Cholesterol Calc 145 mg/dL (Abnormal) Range: 0-99 VLDL Cholesterol Jesús 61 mg/dL (Abnormal) Range: 5-40 HDL Cholesterol 48 mg/dL (Normal) Comments: According to ATP-III Guidelines, HDL-C >59 mg/dL is considered anegative risk factor for CHD. Triglycerides 307 mg/dL (Abnormal) Range: 0-149 Cholesterol, Total 254 mg/dL (Abnormal) Range: 100-199 :53 HgA1C , Office (63503) HgA1C , Office 6.8 % (Normal) Range: 4.6 - 7.1 05-Ysn-865475:53 Blood Glucose , Office (12429) Blood Glucose , Office 111 (Normal) 40-Eth-303056:03 Thin prep Pap Comments: Source.............Cervical;EndocervicalNo. of containers..01 CYTYC Thin Prep VialPATIENT NOT FASTINGPERFORMED BY: LabCo[address] [facility] Medicinerosemarielifecare [facility] [place] [id number] Information: [id number] (29194) Note: PAPSMR (Normal) Comments: The Pap smear [...] is identified.V72.31 ; Routine gynecological examinationCyntyovany Nails [place] (ASCP) 98-Cjq-601266:06 HgA1C , Office (00352) HgA1C , Office 5.8 % (Normal) Range: 4.6 - 7.1 44-Leo-731860:06 Blood Glucose , Office (72981) Blood Glucose , Office 100 (Normal) 72-Wub-625236:19 BILAT SCRN DIGITAL & CAD Radiology Report See Note (Normal) Comments: Exam Number: [id number] MAMMOGRAM, BILATERAL SCREENING DIGITAL AND CAD HISTORYRoutine [...] mammograms werealso examined with computer-aided detection software ([employer], [employer] Reported By: CASEY WARD M.D. :27 HgA1C , Office (58807) HgA1C , Office 5.7 % (Normal) Range: [...] T PROT 7.6 g/dL (Normal) Range: 6.4-8.2 63-Vgk-07373:11 ROUTINE UA BILIRUBIN URINE SeeNote (Normal) Comments: [...] 0.2 EU/dl (Normal) Range: 0.2 - 1.0 66-Pld-590655:09 Pap Lb, Ct-Ng, Comments: Source.............Cervical;EndocervicalNo. of containers..01 CYTYC Thin Prep VialClinical Information: [id number] PERFORMED BY: =G [facility] [id number] HPV-hr . . (Normal) Chlamydia, Nuc. Acid Amp Negative (Normal) DIAGNOSIS: SPRCS (Normal) Comments: NEGATIVE FOR INTRAEPITHELIAL LESION AND MALIGNANCY.Satisfactory for evaluation. Endocervical and/or squamous metaplasticcells (endocervical component) are present.789.07 ; Abdominal pain, g eneralizedG Iveth Ugalde, Supervisory [place] (ASCP) Gonococcus, Nuc. Acid Amp Negative (Normal) [...] :08 Genital Culture, Routine Comments: PERFORMED BY: [employer]6370 [facility] [id number] Genital Culture, Routine Final report (Normal) Result 1 RGF (Normal) Comments: Routine genital gerard. :08 Vaginitis/Vaginosis, DNA Probe Comments: Clinical Information: SRC:VA PERFORMED BY: jobsite123 Djgdca3660 [facility] [id number] Nathaniel species Negative (Normal) Gardnerella vaginalis Negative (Normal) Trichomonas vaginalis Negative (Normal) 6-Jby-793512:5 C-REACTIVE PROT 5.99 mg/L (Normal) Range: 0.0-6.0 0 Comments: Test performed using the Dimension C-Reactive ProteinExtended Range assay method. This assay meets the AHA/CDC 2003 recommendations fordetermining patients at high risk for cardiovasculardisease. Reference: High risk CRP >3.0 mg/L 3-Xuc-809990:50 CBCD,SMEAR DIFF BAND 4 % (Normal) Range: [...] 47-70 WBC 7.2 K/mm3 (Normal) Range: 4.4-11.0 5-Hdm-419023:50 COMP METABOLIC A/G 1.1 {RATIO} (Normal) Range: [...] T PROT 7.4 g/dL (Normal) Range: 6.4-8.2 1-Rrg-458402:50 ESR SED RATE 11 mm/h (Normal) Range: 0-30 8-Fvx-109807:53 ACUTE ABDOMEN, INC CHEST (MT) Radiology Report See Note (Normal) Comments: Exam Number: [id number] ACUTE ABDOMEN INCLUDING CHEST HISTORYEpigastric pain since [...] Thin prep Pap Comments: Source.............Cervical;EndocervicalLMP / Prev Treat...FHZ=057203Iu. of containers..01 CYTYC Thin Prep VialPATIENT NOT FASTINGClinical Information: ADD [id number] PERFORMED BY: Impact (32145) [facility] [place] [address] [place] [id number] . . (Normal) DIAGNOSIS: SPRCS (Normal) Comments: [...] resulttherefore, no HPV testing was performed. . 68-Jeu-27440:28 BILAT SCRN DIGITAL & CAD Radiology Report See Note (Normal) Comments: Exam Number: [id number] BILATERAL SCREENING DIGITAL MAMMOGRAM CLINICAL INFORMATIONScreening. Bilateral [...] mammogramswere also examined with computer- aided detection software([employer] Reported By: BALBIR GATICA M.D. Plan [...] V70.0 Planned Observations LIPOPROTEIN, BLD, BY NMR (30697)Indication: Hypercholesteremia On: :44 Request HEPATIC FUNCTION PANEL (77160)Indication: Hypercholesteremia On: :44 Request Homocysteine, Plasma (71910)Indication: MTHFR mutation On: :24 Request MICROALBUMIN: CREATININE RATIO (93253) AND (05030)Indication: Hypertension, benign On: 82-Qqv-107056:01 Request URINALYSIS (28408)Indication: Hypertension, benign On: 60-Haz-383559:01 Request D-Dimer (14033)Indication: Multiple pulmonary emboli On: 0-Hoc-933011:21 Request Rapid Strep Test, Office (55001)Indication: Acute pharyngitis On: 11-Tiu-444749:53 Request Homocysteine, Plasma (39529)Indication: Elevated serum homocysteine level On: 23-Ize-977348:08 Request CBC W/AUTO DIFF WBC (30128)Indication: Multiple pulmonary emboli On: 90-Osl-042125:45 Request Homocysteine, Plasma (05810)Indication: Multiple pulmonary emboli On: :24 Request Comments: please add to labs drawn pre coag MTHFR (64591)Indication: Multiple pulmonary emboli On: :24 Request Comments: please add to labs drawn pre coag TESTOSTERONE FREE (29464)Indication: Elevated testosterone level in female On: 22-Sep-20169:52 Request METABOLIC PANEL, COMPREHENSIVE (71058)Indication: Hypercholesteremia On: 9-Tqw-887716:14 Request LIPOPROTEIN, BLD, BY NMR (09271)Indication: Hypercholesteremia On: 1-Dto-151851:14 Request Cortisol,Urinary Free 24- Hour Urine (45905)Indication: Diabetes mellitus type II, controlled, with no complications On: 26-May-20168:34 Request URINALYSIS (70830)Indication: UTI (urinary tract infection) On: 98-Tbj-638514:04 Request Comments: recheck 10 days after ATB URINE DAVID CULTURE-IDENTIFICATN (77959)Indication: UTI (urinary tract infection) On: 21-Hbz-357687:03 Request Comments: recheck 10 days after ATB CBC with auto diff (59928)Indication: Diabetes mellitus type II, controlled, with no complications On: 21-Ygd-533419:14 Request LIPID PANEL (36985)Indication: Hypercholesteremia On: 09-Fle-752914:14 Request METABOLIC PANEL, COMPREHENSIVE (06431)Indication: Diabetes mellitus type II, controlled, with no complications On: 63-Egs-257476:14 Request MICROALBUMIN: CREATININE RATIO (58106) AND (81077)Indication: Diabetes mellitus type II, controlled, with no complications On: 18-Gxj-360153:14 Request Hemoglobin Glyclated (HGB A1C) (28140)Indication: Diabetes mellitus type II, controlled, with no complications On: 17-Ohj-712646:14 Request METABOLIC PANEL, COMPREHENSIVE (01329)Indication: Diabetes mellitus type II, controlled, with no complications On: 69-Lfv-775096:20 Request LIPID PANEL (09073)Indication: Diabetes mellitus type II, controlled, with no complications On: :20 Request CBC W/AUTO DIFF WBC (06964)Indication: Diabetes mellitus type II, controlled, with no complications On: :20 Request MICROALBUMIN: CREATININE RATIO (49208) AND (03692)Indication: Diabetes mellitus type II, controlled, with no complications On: :59 Request METABOLIC PANEL, COMPREHENSIVE (26994)Indication: Diabetes mellitus type II, controlled, with no complications On: :59 Request LIPID PANEL (52819)Indication: Diabetes mellitus type II, controlled, with no complications On: :59 Request CBC WITH MANUAL DIFF (33171)Indication: Diabetes mellitus type II, controlled, with no complications On: :59 Request MICROALBUMIN: CREATININE RATIO (50352) AND (68491)Indication: Diabetes mellitus type 2, uncontrolled, without complications On: 45-Ure-228474:10 Request PT (Prothrobim Time) (40663)Indication: Pre-operative examination On: 93-Mfw-823656:13 Request PTT (Activated Partial Thromboplastin Time) (49452)Indication: Pre-operative examination On: 91-Xwx-822298:13 Request CBC with manual diff (88687)Indication: Pre-operative examination On: 11-Yws-135676:13 Request Metabolic Panel, Basic (68415)Indication: Pre-operative examination On: 89-Wgl-155538:11 Request Lipid Panel (47463)Indication: Hypertension, benign On: :31 Request TSH (33863)Indication: Hypertension, benign On: : Request URINALYSIS, W/ MICRO (28323)Indication: Hypertension, benign On: :31 Request MICROALBUMIN: CREATININE RATIO (36565) AND (30482)Indication: Hypertension, benign On: : Request METABOLIC PANEL, COMPREHENSIVE (89981)Indication: Hypertension, benign On: : Request LIPOPROTEIN, BLD, BY NMR (55627)Indication: Hypertension, benign On: : Request LIPID PANEL (22349)Indication: Hypertension, benign On: : Request CBC WITH MANUAL DIFF (13921)Indication: Hypertension, benign On: Request thin prep (80596) (std testing)Indication: Abdominal pain, acute, generalized On: : Request NEISSERIA (18858) (THIN PREP OBTAINED)Indication: Abdominal pain, acute, generalized On: Request CHLAMYDIA (38990) (thin prep obtained)Indication: Abdominal pain, acute, generalized On: : Request INFCT ANTGN TRICH VAGIN DIRECT PRB (65859)Indication: Abdominal pain, acute, generalized On: Request GARDNERELLA VAG, NUCLEIC ACID DIR PROBE (05092)Indication: Abdominal pain, acute, generalized On: Request NATHANIEL, NUCLEIC ACID DIRECT PROBE (18846)Indication: Abdominal pain, acute, generalized On: Request DAVID CULTURE-OTHER (92167)Indication: Abdominal pain, acute, generalized On: :27 Request CBC (Auto) (64615)Indication: Abdominal pain, acute, generalized On: : Request Metabolic Panel, Comprehensive (65838)Indication: Abdominal pain, acute, generalized On: :26 Request Urinalysis, Office (62363)Indication: Abdominal pain, acute, generalized On: 68-Uoj-069116:44 Request C-REACTIVE PROTEIN (42232)Indication: Epigastric pain On: :24 Request SED RATE ERYTHROCYTE (24283)Indication: Epigastric pain On: :24 Request METABOLIC PANEL, COMPREHENSIVE (76525)Indication: Epigastric pain On: :24 Request CBC WITH MANUAL DIFF ([id number])Indication: Epigastric pain On: :23 Request Hemoglobin Glyclated (HGB A1C) ([id number])Indication: Hypoglycemia On: 9-Cay-045560:21 Request Lipid Panel ([id number])Indication: Hypercholesteremia On: 0-Rgo-877310:21 Request Planned Encounters Medical; 3 Month FU - On: 26-Oct-2018 13:30 [facility] Jeannie LIANG, Alycia Jeannie LIANG, Alycia Planned Procedures TDAP VACCINE >7 IM ([id number])By: On: 18-Jul-2018 Intent Zeinab Reddy MD US DOPPLER CAROTID BILATERAL On: 18-Jul-2018 Intent ([id number])By: Zeinab Reddy MD DEXA SCAN AXIAL SKELETON ([id number])By: On: 18-Jul-2018 Intent Zeinab Reddy MD SCREENING DIGITAL TOMOSYNTHESIS OF On: 18-Jul-2018 Intent BREAST ([id number])By: Zeinab Reddy MD SCREENING DIGITAL TOMOSYNTHESIS OF On: 13-Jul-2017 Intent BREAST ([id number])By: Zeinab Reddy MD EKG ([id number])By: Zeinab Reddy MD On: 21-Nov-2016 Intent Ultrasound - PelvisBy: Barry GONZALEZ, On: 24-Oct-2016 Intent Zeinab Varma Comments: copy to Dr. [email or web address]. CT - Abdomen (IV Contrast Needed)By: On: 26-Aug-2016 Intent Zeinab Reddy MD Comments: attention adrenals. Flu Vaccine (Quadrivalent) [id number]: On: 04-Jul-2016 Intent Zeinab Reddy MD US DOPPLER CAROTID BILATERAL On: 26-May-2016 Intent ([id number])By: Zeinab Reddy MD DEXA SCAN AXIAL SKELETON ([id number])By: On: 26-May-2016 Intent Zeinab Reddy MD BILATERAL MAMMOGRAMS ([id number])By: On: 26-May-2016 Intent Zeinab Reddy MD Nuclear Stress Test/Stress On: 05-Aug-2014 Intent SPECT/TreadmillBy: Carlotta Dennis CNP, CNP, Alycia Carotid DopplerBy: Zeinab Reddy MD On: 06-Jun-2014 Intent M Comments: dizzy MRI - Brain (IV Contrast Needed)By: On: 06-Jun-2014 Intent Zeinab Reddy MD Holter Monitor 24 hrsBy: Barry GONZALEZ, On: 06-Jun-2014 Intent Zeinab Varma EKG ([id number])By: Zeinab Reddy MD On: 02-Jun-2014 Intent Comments: see scanned document of test done to see results reviewed today with patient MAMMOGRAM, SCREENING, BOTH BREASTS On: 21-Jan-2014 Intent ([id number])By: Zeinab Reddy MD Eprescribed prescriptions ([id number])By: On: 21-Jan-2014 Intent Zeinab Reddy MD Aerosol Treatment ([id number])By: Jacy On: 07-Nov-2013 Intent Tracy MURPHY Comments: after aerosol - more a/e less inspir noise but lots of exp noise Spirometry ([id number])By: Jacy MURPHY, On: 07-Nov-2013 Intent Tracy Comments: poor effort and difficult time diong with coughjing -- restriction shown Eprescribed prescriptions ([id number])By: On: 07-Nov-2013 Intent Tracy Louie DO Aerosol Treatment ([id number])By: Jeannie On: 24-Sep-2012 Intent Carlotta LIANG CNP, Mary E Eprescribed prescriptions ([id number])By: On: 12-Jun-2012 Intent Tania Ledbetter LPN IMMUNIZ ADMNIN, 1 VAC, SNGL/COMBO On: 12-Jun-2012 Intent ([id number])By: Tania Ledbetter LPN FLU VAC, SPLIT, >3 YEARS, INTRAMUSC On: 12-Jun-2012 Intent ([id number])By: Tania Ledbetter LPN ELECTROCARDIOGRAM, COMPLETE (ECG) On: 10-Apr-2012 Intent ([id number])By: Carlotta Dennis CNP, CNP, Mary E Spirometry ([id number])By: Dwight MURPHY, On: 10-Jan-2011 Intent Valarie A Comments: done km- good effort and curve- mod obst Solu -Medrol Injection, 125 mg On: 10-Jan-2011 Intent ([id number])By: Jessica Alba LPN Comments: 2ml given im rt hip lotobjk2 exp 1-14 Pulse Oximetry ([id number])By: Dwight MURPHY, On: 10-Jan-2011 Intent Valarie A Comments: 96% Aerosol Treatment ([id number])By: Dwight On: 10-Jan-2011 Intent Valarie MURPHY Comments: done with albuterol 0.83%pt tolerated well MAMMOGRAM, SCREENING, BOTH BREASTS On: 30-Nov-2010 Intent ([id number])By: Zeinab Reddy MD MAMMOGRAM, SCREENING, BOTH BREASTS On: 23-Jul-2009 Intent ([id number])By: Zeinab Reddy MD EKG ([id number])By: Zeinab Reddy MD On: 23-Jul-2009 Intent Radiology - Abdomen SeriesBy: Jacy On: 19-Dec-2008 Intent DO Tracy TD Injection , IM ([id number])By: On: 21-Jan-2008 Intent Zeinab Reddy MD MAMMOGRAM, SCREENING, BOTH BREASTS On: 21-Jan-2008 Intent ([id number])By: Zeinab Reddy MD [facility] INJECTION, METHYLPREDNISOLONE [...] for Tdap vaccination (Renamed from Need for yrxaxfuukh-vpitbgw-gpcsuwyxb (Tdap) vaccine, adult/adolescent) [facility] [...] Patient has been compliant with instructions. Current wv End: 18-Jan-2015 22:33 dication use: no side [...] not using any method of contraception at [facility] End: 30-Nov-2010 15:39 s time. Patient [...] (Renamed from Hypercholesteremia (272.0)), Sleep disorder (780.50), [facility] V70.0 [facility] Payers Aliza bean guarantor
--- OUTSIDE RECORDS SUMMARY | 2018-10-10 11:18 | XMS RPT_ITS | Continuity of Care Document ---
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 (Normal) Range: 4.6 - 7.1 :27 Blood Glucose , Office (22078) Blood Glucose , Office 109 (Normal) :03 IGP, Aptima HPV, Comments: Source.............Cervix;EndocervixNo. of containers..01 CYTYC Thin Prep VialPATIENT NOT FASTINGPERFORMED BY: =G [facility] Fotanbaesb881 [facility] [place] W [id number] BY: WB [facility] rfx 16/18,[address] [id number] HPV Aptima Negative (Normal) Comments: This test [...] evaluation. No endocervical component is identified.Z01.419Margarita Reagan Head Of Marketing (ASCP) :54 HEPATIC FUNCTION PANEL Comments: PATIENT WAS FASTINGPERFORMED BY: BN [facility] Nepsvhtaby4771 [facility] [id number] BY: CB [facility] Grghde6948 [facility] [id number] (86379) ALT (SGPT) 15 [iU]/L (Normal) Range: 0-32 AST (SGOT) 10 [iU]/L (Normal) Range: 0-40 Alkaline Phosphatase, S 87 [iU]/L (Normal) Range: 39-117 Bilirubin, Direct 0.20 mg/dL (Normal) Range: 0.00-0.40 Bilirubin, Total 0.9 mg/dL (Normal) Range: 0.0-1.2 Albumin, Serum 4.1 g/dL (Normal) Range: 3.5-5.5 Protein, Total, Serum 7.2 g/dL (Normal) Range: 6.0-8.5 82-Tui-528347:54 LIPOPROTEIN, BLD, BY NMR Comments: PATIENT WAS FASTINGPERFORMED BY: BN [facility] Evqlntiuof1532 [facility] [id number] BY: CB [facility] Lggohy7347 [facility] [id number] (88381) LP-IR Score 82 (Abnormal) Comments: INSULIN RESISTANCE MARKER <--Insulin Sensitive Insulin Resistant--> Percentile in Reference PopulationInsulin Resistance ScoreLP-IR Score Low 25th 50th 75th High <27 27 45 63 >63LP-IR Score is inaccurate if patient is non-fasting. .The LP-IR score is a laboratory developed i [facility] that has beenassociated with insulin resistance and [...] were developed and their performance characteristicsdetermined by [facility] on Request. These assays have not been cleared by [...] 1600 - 2000 Very High > 2000 03-Roy-451040:54 CALCIFEDIOL (64251) Comments: PATIENT WAS FASTINGPERFORMED BY: BN [facility] [address] [id number] BY: CB [facility] Lizzto5889 [facility] [id number] Vitamin D, 25-Hydroxy 35.2 ng/mL (Normal) Range: 30.0-100.0 Comments: Vitamin D deficiency has been defined by the [place] of[place]icine and an Endocrine Society practice guideline as alevel of serum 25-OH vitamin D less than 20 ng/mL (1,2).The Endocrine Society went on to further define vitamin Dinsufficiency as a level between 21 and 29 ng/mL (2).1. IOM ([place] of Medicine). 2010. Dietary reference intakes for calcium and D. [place]: The National Academies Press.2. Ritika MF, Demetrio ARORA, Barbara PENNY, et al. Evaluation, treatment, and prevention of vitamin D deficiency: an Endocrine Society clinical practice guideline. JCEM. 2010; 96(7):1911-30. 94-Sig-217686:54 TESTOSTERONE FREE (18555) Comments: PATIENT WAS FASTINGPERFORMED BY: [employer] [id number] BY: [place] 6383670 [facility] [id number] Free Testosterone(Direct) 5.6 pg/mL (Abnormal) Range: 0.0-4.2 76-Qcn-759675:54 FSH AND LH (84667) Comments: PATIENT WAS FASTINGPERFORMED BY: [employer] [id number] BY: [place] 6383670 [facility] [id number] FSH 25.4 m[iU]/mL (Normal) Comments: Follicular phase 3.5 - 12.5 Ovulation phase 4.7 - 21.5 Luteal phase 1.7 - 7.7 Postmenopausal 25.8 - 134.8 LH 40.2 m[iU]/mL (Normal) Comments: Follicular phase 2.4 - 12.6 Ovulation phase 14.0 - 95.6 Luteal phase 1.0 - 11.4 Postmenopausal 7.7 - 58.5 59-Zwy-645559:54 DHEA-S (DEHYDROEPIANDROSTERONE Comments: PATIENT WAS FASTINGPERFORMED BY: [employer] [id number] BY: [place] 6383670 [facility] [id number] SULFATE) (23127) DHEA-Sulfate 119.9 ug/dL (Normal) Range: 29.4-220.5 0-Qzz-636674:03 Thin prep Pap Comments: Source.............Cervix;EndocervixNo. of containers..01 CYTYC Thin Prep VialPATIENT NOT FASTINGPERFORMED BY: =G Lab[address] [id number] BY: [employer] (10872) (no STD rp [address] [id number] Information: [id number] testing) Age Gdln ACOG Testing 30-65 (Normal) 87-Utu-05833:48 URINE DAVID CULTURE-IDENTIFICATN Comments: PATIENT NOT FASTINGPERFORMED BY: SeniorQuote Insurance ServicesAdam Ville 2320670 [facility] [id number] Information: [id number] (33096) Result 1 MUG (Normal) Comments: Mixed urogenital flora2,000 Colonies/mL Urine Culture,Comprehensive Final report (Normal) 22-Nzr-52122:05 Urinalysis, Office (58289) UA - LEUKOCYTE ESTERASE Negative (Normal) UA - NITRITE Negative (Normal) URINE UROBILINGN FANNY TIMED Normal mg/dL (Normal) UA - PROTEIN Negative mg/dL (Normal) UA - PH 5 (Abnormal) UA - BLOOD Non Hemolyzed Trace (Normal) UA - SPECIFIC GRAVITY 1.030 (Abnormal) UA - KETONES Negative mg/dL (Normal) UA - BILIRUBIN Negative (Normal) UA - GLUCOSE Negative (Normal) 48-Jai-954134:37 URINE DAVID CULTURE-IDENTIFICATN Comments: PATIENT NOT FASTINGPERFORMED BY: [employer] Insurance ServicesAdam [place] 2320670 [facility] [id number] Information: [id number] (76104) Antimicrobial MIHEAD (Normal) Comments: S = Susceptible; [...] pneumoniae (Abnormal) Urine Final report Culture,Comprehensive (Abnormal) 76-Kew-935747:17 MICROALBUMIN: CREATININE RATIO Comments: PATIENT WAS FASTINGPERFORMED BY: [employer] Insurance ServicesAdam [place] 2320670 [facility] [id number] (53979) AND (45215) Microalb/Creat Ratio 6.1 {mg/g_creat} (Normal) Range: 0.0-30.0 Microalbumin, Urine 6.8 ug/mL (Normal) Range: 0.0-17.0 Comments: Effective January 25, 2016 the reference interval for Microalbumin, Urine will be changing to: Not Estab. Creatinine, Urine 111.5 mg/dL (Normal) Range: 15.0-278.0 Comments: Effective January 25, 2016 the reference interval for Creatinine, Urine will be changing to: Not Estab. 19-Rmw-976062:17 METABOLIC PANEL, COMPREHENSIVE Comments: PATIENT WAS FASTINGPERFORMED BY: [facility]Jeff[facility])Bdptly9731 [facility] [id number] (89171) ALT (SGPT) 20 [iU]/L (Normal) Range: 0-32 [...] Glucose, Serum 118 mg/dL (Abnormal) Range: 65-99 66-Izr-278642:17 LIPID PANEL (58664) Comments: PATIENT WAS FASTINGPERFORMED BY: [facility]Jeff[facility])Fmbyhw5118 [facility] [id number] LDL/HDL Ratio 3.4 {ratio_units} (Abnormal) Range: 0.0-3.2 [...] auto diff Comments: PATIENT WAS FASTINGPERFORMED BY: [employer] Ublaoh9819 [facility] [id number] Information: [id number] (21005) Immature Grans (Abs) 0.0 {x10E3/uL} (Normal) Range: [...] {x10E3/uL} (Normal) Range: 3.4-10.8 :27 Urinalysis, Office (34434) UA - LEUKOCYTE ESTERASE Trace (Normal) UA [...] GLUCOSE Negative (Normal) :21 HgA1C , Office (90446) HgA1C , Office 6.6 % (Normal) Range: 4.6 - 7.1 :23 HgA1C , Office (86057) HgA1C , Office 5.7 % (Normal) Range: 4.6 - 7.1 :23 Blood Glucose , Office (27434) Blood Glucose , Office 101 (Normal) :42 [...] CHOL 199 mg/dL (Normal) Comments: <200 mg/dL Mqofkmtxx549-384 mg/dL Borderline>240 mg/dL High Risk 24-Ymt-596643:01 Renal function Panel Comments: PATIENT NOT FASTINGPERFORMED BY: [facility] TherapeuticsNov[facility] [id number] Information: [id number] (51681) Albumin, Serum 4.5 g/dL (Normal) Range: 3.5-5.5 [...] Glucose, Serum 105 mg/dL (Abnormal) Range: 65-99 19-Ger-572407:01 MAGNESIUM (89699) Comments: PATIENT NOT FASTINGPERFORMED BY: [employer] Solutionsin [place] [id number] Magnesium, Serum 1.8 mg/dL (Normal) Range: 1.6-2.6 :54 C-Reactive Protein (26408) Comments: PATIENT NOT FASTINGPERFORMED BY: [facility]6370 [facility] [id number] C-Reactive Protein, Quant 2.5 mg/L (Normal) Range: 0.0-4.9 :54 Sed Rate Erythrocyte (67511) Comments: PATIENT NOT FASTINGPERFORMED BY: [place] 6383670 [facility] [id number] Sedimentation Rate-Westergren 4 mm/h (Normal) Range: 0-40 :54 T4, FREE (THYROXINE) (25301) Comments: PATIENT NOT FASTINGPERFORMED BY: [facility]6370 [facility] [id number] T4,Free(Direct) 1.32 ng/dL (Normal) Range: 0.82-1.77 :54 TSH (25351) Comments: PATIENT NOT FASTINGPERFORMED BY: [place] 6383670 [facility] [id number] Information: [id number] TSH 1.770 {uIU/mL} (Normal) Range: 0.450-4.500 :39 HgA1C , Office (56428) HgA1C , Office 5.8 % (Normal) Range: 4.6 - 7.1 :39 Blood Glucose , Office (27635) Blood Glucose , Office 96 (Normal) :23 LIPID PANEL (48782) Comments: PATIENT WAS FASTINGPERFORMED BY: [place] 6383670 [facility] [id number] Information: [id number] LDL/HDL Ratio 2.6 {ratio_units} (Normal) Range: 0.0-3.2 LDL Cholesterol Calc 99 mg/dL (Normal) Range: 0-99 VLDL Cholesterol Jesús 41 mg/dL (Abnormal) Range: 5-40 HDL Cholesterol 38 mg/dL (Abnormal) Comments: According to ATP-III Guidelines, HDL-C >59 mg/dL is considered anegative risk factor for CHD. Triglycerides 204 mg/dL (Abnormal) Range: 0-149 Cholesterol, Total 178 mg/dL (Normal) Range: 100-199 :23 HEPATIC FUNCTION PANEL (64392) Comments: PATIENT WAS FASTINGPERFORMED BY: [employer]70 [facility] [id number] ALT (SGPT) 23 [iU]/L (Normal) Range: 0-32 AST (SGOT) 19 [iU]/L (Normal) Range: 0-40 Alkaline Phosphatase, S 84 [iU]/L (Normal) Range: 39-117 Bilirubin, Direct 0.23 mg/dL (Normal) Range: 0.00-0.40 Bilirubin, Total 1.0 mg/dL (Normal) Range: 0.0-1.2 Albumin, Serum 4.4 g/dL (Normal) Range: 3.5-5.5 Protein, Total, Serum 7.2 g/dL (Normal) Range: 6.0-8.5 :42 MICROALBUMIN: CREATININE RATIO Comments: PATIENT WAS FASTINGPERFORMED BY: [employer]70 [facility] [id number] (89735) AND (98946) Creatinine, Urine 152.1 mg/dL (Normal) Range: 15.0-278.0 Microalb/Creat Ratio 23.3 {mg/g_creat} (Normal) Range: 0.0-30.0 Microalbumin, Urine 35.5 ug/mL (Abnormal) Range: 0.0-17.0 :42 METABOLIC PANEL, COMPREHENSIVE Comments: PATIENT WAS FASTINGPERFORMED BY: [employer]70 [facility] [id number] (41059) ALT (SGPT) 18 [iU]/L (Normal) Range: 0-32 [...] mg/dL (Abnormal) Range: 65-99 :42 LIPID PANEL (06371) Comments: PATIENT WAS FASTINGPERFORMED BY: [facility]6370 [facility] [id number] LDL/HDL Ratio 3.5 {ratio_units} (Abnormal) Range: 0.0-3.2 [...] MANUAL DIFF Comments: PATIENT WAS FASTINGPERFORMED BY: [facility]6370 [facility] [id number] Information: [id number] (24171) Immature Grans (Abs) 0.0 {x10E3/uL} (Normal) Range: [...] (Normal) Range: 3.4-10.8 :35 HgA1C , Office (32761) HgA1C , Office 6.4 % (Normal) Range: 4.6 - 7.1 :34 Blood Glucose , Office (22014) Blood Glucose , Office 124 (Normal) 47-Gbu-824919:21 Rapid Flu (04624 x 2) Influenza A Ag negative (Normal) 95-Nnh-272886:23 MICROALBUMIN: CREATININE RATIO Comments: PATIENT NOT FASTINGPERFORMED BY: [facility]Jeff[facility])Iasknr0293 [facility] [id number] (55033) AND (79824) Microalb/Creat Ratio 3.5 {mg/g_creat} (Normal) Range: 0.0-30.0 Microalbumin, Urine 5.6 ug/mL (Normal) Range: 0.0-17.0 Creatinine, Urine 158.0 mg/dL (Normal) Range: 15.0-278.0 97-Owl-134471:23 METABOLIC PANEL, COMPREHENSIVE Comments: PATIENT NOT FASTINGPERFORMED BY: [employer] Fmaeye9010 [facility] [id number] (39756) ALT (SGPT) 16 [iU]/L (Normal) Range: 0-32 [...] Glucose, Serum 101 mg/dL (Abnormal) Range: 65-99 32-Ebn-353396:23 CBC WITH MANUAL DIFF Comments: PATIENT NOT FASTINGPERFORMED BY: [facility]CoJeff[facility])Upavij2477 [facility] [id number] Information: [id number] (63030) Immature Grans (Abs) 0.0 {x10E3/uL} (Normal) Range: [...] Range: 4.0-10.5 :52 Blood Glucose , Office (34768) Blood Glucose , Office 116 (Normal) 05-Xyk-932346:52 HgA1C , Office (90587) HgA1C , Office 6.2 % (Normal) Range: 4.6 - 7.1 :37 Rapid Flu (56372 x 2) Influenza A Ag negative (Normal) :27 HgA1C , Office (39200) HgA1C , Office 5.7 % (Normal) Range: 4.6 - 7.1 :27 Blood Glucose , Office (46234) Blood Glucose , Office 98 (Normal) :18 CREATININE CLEARANCE Comments: PATIENT NOT FASTINGPERFORMED BY: [facility] Careerist[address] [id number] Information: [id number] (74572) 24 HOUR Creatinine Clearance 104 mL/min (Normal) Range: 88-128 Comments: The above range is based on 1.73 square meter average body surfacearea. Creatinine, Ur 24hr 1169.7 {mg/24_hr} (Normal) Range: 800.0-1800.0 Creatinine, Urine 55.7 mg/dL (Normal) Range: 15.0-278.0 eGFR If Africn Am 99 mL/min/1.73 (Normal) eGFR If NonAfricn Am 86 mL/min/1.73 (Normal) Creatinine, Serum 0.78 mg/dL (Normal) Range: 0.57-1.00 :43 LIPID PANEL (62874) Comments: PATIENT WAS FASTINGPERFORMED BY: LabCoJeffrey [place] 3922270 [facility] [id number] Information: [id number] LDL/HDL Ratio 3.0 {ratio_units} (Normal) Range: 0.0-3.2 LDL Cholesterol Calc 145 mg/dL (Abnormal) Range: 0-99 VLDL Cholesterol Jesús 61 mg/dL (Abnormal) Range: 5-40 HDL Cholesterol 48 mg/dL (Normal) Comments: According to ATP-III Guidelines, HDL-C >59 mg/dL is considered anegative risk factor for CHD. Triglycerides 307 mg/dL (Abnormal) Range: 0-149 Cholesterol, Total 254 mg/dL (Abnormal) Range: 100-199 :53 HgA1C , Office (39363) HgA1C , Office 6.8 % (Normal) Range: 4.6 - 7.1 10-Wim-821028:53 Blood Glucose , Office (98507) Blood Glucose , Office 111 (Normal) 47-Ctt-110066:03 Thin prep Pap Comments: Source.............Cervical;EndocervicalNo. of containers..01 CYTYC Thin Prep VialPATIENT NOT FASTINGPERFORMED BY: [facility]Co[address] AzraGood [facility]itan Medical Centerrosemariecurahealth [facility] [place] [id number] Information: [id number] (53806) Note: PAPSMR (Normal) Comments: The Pap smear [...] is identified.V72.31 ; Routine gynecological examinationCyntyovany Nails Head Of Marketing (ASCP) 25-Brf-412842:06 HgA1C , Office (02999) HgA1C , Office 5.8 % (Normal) Range: 4.6 - 7.1 00-Rmx-726074:06 Blood Glucose , Office (86031) Blood Glucose , Office 100 (Normal) 95-Wig-287365:19 BILAT SCRN DIGITAL & CAD Radiology Report See Note (Normal) Comments: Exam Number: [id number] MAMMOGRAM, BILATERAL SCREENING DIGITAL AND CAD HISTORYRoutine [...] mammograms werealso examined with computer-aided detection software ([employer].). Reported By: CASEY WARD M.D. :27 HgA1C , Office (26477) HgA1C , Office 5.7 % (Normal) Range: [...] T PROT 7.6 g/dL (Normal) Range: 6.4-8.2 91-Pmd-15684:11 ROUTINE UA BILIRUBIN URINE SeeNote (Normal) Comments: [...] 0.2 EU/dl (Normal) Range: 0.2 - 1.0 39-Wcr-194073:09 Pap Lb, Ct-Ng, Comments: Source.............Cervical;EndocervicalNo. of containers..01 CYTYC Thin Prep VialClinical Information: [id number] PERFORMED BY: =G Lab[address] [id number] HPV-hr . . (Normal) Chlamydia, Nuc. Acid Amp Negative (Normal) DIAGNOSIS: SPRCS (Normal) Comments: NEGATIVE FOR INTRAEPITHELIAL LESION AND MALIGNANCY.Satisfactory for evaluation. Endocervical and/or squamous metaplasticcells (endocervical component) are present.789.07 ; Abdominal pain, g eneralizedG Iveth Ugalde, Supervisory Head Of Marketing (ASCP) Gonococcus, Nuc. Acid Amp Negative (Normal) [...] :08 Genital Culture, Routine Comments: PERFORMED BY: [facility]6370 [facility] [id number] Genital Culture, Routine Final report (Normal) Result 1 RGF (Normal) Comments: Routine genital gerard. :08 Vaginitis/Vaginosis, DNA Probe Comments: Clinical Information: SRC:VA PERFORMED BY: 12Bis Mvwfpi9278 [facility] [id number] Nathaniel species Negative (Normal) Gardnerella vaginalis Negative (Normal) Trichomonas vaginalis Negative (Normal) 6-Ght-713147:5 C-REACTIVE PROT 5.99 mg/L (Normal) Range: 0.0-6.0 0 Comments: Test performed using the Dimension C-Reactive ProteinExtended Range assay method. This assay meets the AHA/CDC 2003 recommendations fordetermining patients at high risk for cardiovasculardisease. Reference: High risk CRP >3.0 mg/L 8-Ceo-794346:50 CBCD,SMEAR DIFF BAND 4 % (Normal) Range: [...] 47-70 WBC 7.2 K/mm3 (Normal) Range: 4.4-11.0 5-Pck-050440:50 COMP METABOLIC A/G 1.1 {RATIO} (Normal) Range: [...] T PROT 7.4 g/dL (Normal) Range: 6.4-8.2 7-Fps-544178:50 ESR SED RATE 11 mm/h (Normal) Range: 0-30 0-Mkr-871166:53 ACUTE ABDOMEN, INC CHEST (MT) Radiology Report See Note (Normal) Comments: Exam Number: [id number] ACUTE ABDOMEN INCLUDING CHEST HISTORYEpigastric pain since [...] methodology of Hgb A1C has changed to Peñuelas BehringDimension RXL. No significant changes in patientresults [...] Thin prep Pap Comments: Source.............Cervical;EndocervicalLMP / Prev Treat...TWW=756631Ou. of containers..01 CYTYC Thin Prep VialPATIENT NOT FASTINGClinical Information: ADD [id number] PERFORMED BY: [employer] [facility] (04625) [facility] [place] [address] [place] [id number] . . (Normal) DIAGNOSIS: SPRCS (Normal) Comments: [...] resulttherefore, no HPV testing was performed. . 73-Ebq-17038:28 BILAT SCRN DIGITAL & CAD Radiology Report See Note (Normal) Comments: Exam Number: [id number] BILATERAL SCREENING DIGITAL MAMMOGRAM CLINICAL INFORMATIONScreening. Bilateral [...] mammogramswere also examined with computer- aided detection software([employer] Reported By: BALBIR GATICA M.D. Plan [...] V70.0 Planned Observations LIPOPROTEIN, BLD, BY NMR (62236)Indication: Hypercholesteremia On: :44 Request HEPATIC FUNCTION PANEL (33515)Indication: Hypercholesteremia On: :44 Request Homocysteine, Plasma (74639)Indication: MTHFR mutation On: :24 Request MICROALBUMIN: CREATININE RATIO (02540) AND (84790)Indication: Hypertension, benign On: 67-Akv-900176:01 Request URINALYSIS (81121)Indication: Hypertension, benign On: 44-Xik-540039:01 Request D-Dimer (75551)Indication: Multiple pulmonary emboli On: 4-Kpu-667231:21 Request Rapid Strep Test, Office (68149)Indication: Acute pharyngitis On: 37-Jnv-008077:53 Request Homocysteine, Plasma (73642)Indication: Elevated serum homocysteine level On: 55-Xqb-551501:08 Request CBC W/AUTO DIFF WBC (22588)Indication: Multiple pulmonary emboli On: 51-Fyy-831304:45 Request Homocysteine, Plasma (18664)Indication: Multiple pulmonary emboli On: :24 Request Comments: please add to labs drawn pre coag MTHFR (13242)Indication: Multiple pulmonary emboli On: :24 Request Comments: please add to labs drawn pre coag TESTOSTERONE FREE (52257)Indication: Elevated testosterone level in female On: 22-Sep-20169:52 Request METABOLIC PANEL, COMPREHENSIVE (95191)Indication: Hypercholesteremia On: 5-Pue-991594:14 Request LIPOPROTEIN, BLD, BY NMR (47497)Indication: Hypercholesteremia On: 7-Aad-168870:14 Request Cortisol,Urinary Free 24- Hour Urine (19670)Indication: Diabetes mellitus type II, controlled, with no complications On: 26-May-20168:34 Request URINALYSIS (57569)Indication: UTI (urinary tract infection) On: 96-Orq-235816:04 Request Comments: recheck 10 days after ATB URINE DAVID CULTURE-IDENTIFICATN (95777)Indication: UTI (urinary tract infection) On: 41-Wpa-225949:03 Request Comments: recheck 10 days after ATB CBC with auto diff (87722)Indication: Diabetes mellitus type II, controlled, with no complications On: 16-Wrw-445877:14 Request LIPID PANEL (34430)Indication: Hypercholesteremia On: 45-Nzo-040922:14 Request METABOLIC PANEL, COMPREHENSIVE (68342)Indication: Diabetes mellitus type II, controlled, with no complications On: 60-Qeg-408818:14 Request MICROALBUMIN: CREATININE RATIO (20212) AND (14741)Indication: Diabetes mellitus type II, controlled, with no complications On: 00-Qwc-383083:14 Request Hemoglobin Glyclated (HGB A1C) (29706)Indication: Diabetes mellitus type II, controlled, with no complications On: 03-Hyy-018778:14 Request METABOLIC PANEL, COMPREHENSIVE (41442)Indication: Diabetes mellitus type II, controlled, with no complications On: 27-Wrb-751271:20 Request LIPID PANEL (01713)Indication: Diabetes mellitus type II, controlled, with no complications On: :20 Request CBC W/AUTO DIFF WBC (63332)Indication: Diabetes mellitus type II, controlled, with no complications On: :20 Request MICROALBUMIN: CREATININE RATIO (32253) AND (18415)Indication: Diabetes mellitus type II, controlled, with no complications On: :59 Request METABOLIC PANEL, COMPREHENSIVE (04523)Indication: Diabetes mellitus type II, controlled, with no complications On: :59 Request LIPID PANEL (65351)Indication: Diabetes mellitus type II, controlled, with no complications On: :59 Request CBC WITH MANUAL DIFF (09938)Indication: Diabetes mellitus type II, controlled, with no complications On: :59 Request MICROALBUMIN: CREATININE RATIO (18929) AND (14179)Indication: Diabetes mellitus type 2, uncontrolled, without complications On: 74-Zwz-328812:10 Request PT (Prothrobim Time) (61200)Indication: Pre-operative examination On: 23-Nnz-231471:13 Request PTT (Activated Partial Thromboplastin Time) (63408)Indication: Pre-operative examination On: 30-Ipm-956758:13 Request CBC with manual diff (50357)Indication: Pre-operative examination On: 31-Szp-023566:13 Request Metabolic Panel, Basic (04382)Indication: Pre-operative examination On: 00-Gej-018344:11 Request Lipid Panel (14181)Indication: Hypertension, benign On: :31 Request TSH (87157)Indication: Hypertension, benign On: : Request URINALYSIS, W/ MICRO (26553)Indication: Hypertension, benign On: :31 Request MICROALBUMIN: CREATININE RATIO (77100) AND (40673)Indication: Hypertension, benign On: : Request METABOLIC PANEL, COMPREHENSIVE (09223)Indication: Hypertension, benign On: : Request LIPOPROTEIN, BLD, BY NMR (96831)Indication: Hypertension, benign On: : Request LIPID PANEL (79912)Indication: Hypertension, benign On: : Request CBC WITH MANUAL DIFF (58445)Indication: Hypertension, benign On: Request thin prep (03492) (std testing)Indication: Abdominal pain, acute, generalized On: : Request NEISSERIA (33011) (THIN PREP OBTAINED)Indication: Abdominal pain, acute, generalized On: Request CHLAMYDIA ([id number]) (thin prep obtained)Indication: Abdominal pain, acute, generalized On: : Request INFCT ANTGN TRICH VAGIN DIRECT PRB ([id number])Indication: Abdominal pain, acute, generalized On: Request GARDNERELLA VAG, NUCLEIC ACID DIR PROBE ([id number])Indication: Abdominal pain, acute, generalized On: Request NATHANIEL, NUCLEIC ACID DIRECT PROBE ([id number])Indication: Abdominal pain, acute, generalized On: Request DAVID CULTURE-OTHER ([id number])Indication: Abdominal pain, acute, generalized On: :27 Request CBC (Auto) ([id number])Indication: Abdominal pain, acute, generalized On: : Request Metabolic Panel, Comprehensive ([id number])Indication: Abdominal pain, acute, generalized On: :26 Request Urinalysis, Office ([id number])Indication: Abdominal pain, acute, generalized On: 02-Xhw-160666:44 Request C-REACTIVE PROTEIN ([id number])Indication: Epigastric pain On: :24 Request SED RATE ERYTHROCYTE ([id number])Indication: Epigastric pain On: :24 Request METABOLIC PANEL, COMPREHENSIVE ([id number])Indication: Epigastric pain On: :24 Request CBC WITH MANUAL DIFF ([id number])Indication: Epigastric pain On: :23 Request Hemoglobin Glyclated (HGB A1C) ([id number])Indication: Hypoglycemia On: 6-Meu-695297:21 Request Lipid Panel ([id number])Indication: Hypercholesteremia On: 5-Obi-907790:21 Request Planned Encounters Medical; 3 Month FU - On: 26-Oct-2018 13:30 [facility] Jeannie LIANG, Alycia Jeannie LIANG, Alycia Planned Procedures TDAP VACCINE >7 IM ([id number])By: On: 18-Jul-2018 Intent Zeinab Reddy MD US DOPPLER CAROTID BILATERAL On: 18-Jul-2018 Intent ([id number])By: Zeinab Reddy MD DEXA SCAN AXIAL SKELETON ([id number])By: On: 18-Jul-2018 Intent Zeinab Reddy MD SCREENING DIGITAL TOMOSYNTHESIS OF On: 18-Jul-2018 Intent BREAST ([id number])By: Zeinab Reddy MD SCREENING DIGITAL TOMOSYNTHESIS OF On: 13-Jul-2017 Intent BREAST ([id number])By: Zeinab Reddy MD EKG ([id number])By: Zeinab Reddy MD On: 21-Nov-2016 Intent Ultrasound - PelvisBy: Barry GONZALEZ, On: 24-Oct-2016 Intent Zeinab Varma Comments: copy to Dr. mcdaniel. CT - Abdomen (IV Contrast Needed)By: On: 26-Aug-2016 Intent Zeinab Reddy MD Comments: attention adrenals. Flu Vaccine (Quadrivalent) [id number]: On: 04-Jul-2016 Intent Zeinab Reddy MD US DOPPLER CAROTID BILATERAL On: 26-May-2016 Intent ([id number])By: Zeinab Reddy MD DEXA SCAN AXIAL SKELETON ([id number])By: On: 26-May-2016 Intent Zeinab Reddy MD BILATERAL MAMMOGRAMS ([id number])By: On: 26-May-2016 Intent Zeinab Reddy MD Nuclear Stress Test/Stress On: 05-Aug-2014 Intent SPECT/TreadmillBy: Carlotta Dennis CNP, CNP, Alycia Carotid DopplerBy: Zeinab Reddy MD On: 06-Jun-2014 Intent M Comments: dizzy MRI - Brain (IV Contrast Needed)By: On: 06-Jun-2014 Intent Zeinab Reddy MD Holter Monitor 24 hrsBy: Barry GONZALEZ, On: 06-Jun-2014 Intent Zeinab Varma EKG ([id number])By: Zeinab Reddy MD On: 02-Jun-2014 Intent Comments: see scanned document of test done to see results reviewed today with patient MAMMOGRAM, SCREENING, BOTH BREASTS On: 21-Jan-2014 Intent ([id number])By: Zeinab Reddy MD Eprescribed prescriptions ([id number])By: On: 21-Jan-2014 Intent Zeinab Reddy MD Aerosol Treatment ([id number])By: Jacy On: 07-Nov-2013 Intent Tracy MURPHY Comments: after aerosol - more a/e less inspir noise but lots of exp noise Spirometry ([id number])By: Jacy MURPHY, On: 07-Nov-2013 Intent Tracy Comments: poor effort and difficult time diong with coughjing -- restriction shown Eprescribed prescriptions ([id number])By: On: 07-Nov-2013 Intent Tracy Louie DO Aerosol Treatment ([id number])By: Jeannie On: 24-Sep-2012 Intent Carlotta LIANG CNP, Mary E Eprescribed prescriptions ([id number])By: On: 12-Jun-2012 Intent Tania Ledbetter LPN IMMUNIZ ADMNIN, 1 VAC, SNGL/COMBO On: 12-Jun-2012 Intent ([id number])By: Tania Ledebtter LPN FLU VAC, SPLIT, >3 YEARS, INTRAMUSC On: 12-Jun-2012 Intent ([id number])By: Tania Ledbetter LPN ELECTROCARDIOGRAM, COMPLETE (ECG) On: 10-Apr-2012 Intent ([id number])By: Carlotta Dennis CNP, CNP, Mary E Spirometry ([id number])By: Dwight MURPHY, On: 10-Jan-2011 Intent Valarie A Comments: done km- good effort and curve- mod obst Solu -Medrol Injection, 125 mg On: 10-Jan-2011 Intent ([id number])By: Jessica Alba LPN Comments: 2ml given im rt hip lotobjk2 exp 1-14 Pulse Oximetry ([id number])By: Dwight MURPHY, On: 10-Jan-2011 Intent Valarie A Comments: 96% Aerosol Treatment ([id number])By: Dwight On: 10-Jan-2011 Intent Valarie MURPHY Comments: done with albuterol 0.83%pt tolerated well MAMMOGRAM, SCREENING, BOTH BREASTS On: 30-Nov-2010 Intent ([id number])By: Zeinab Reddy MD MAMMOGRAM, SCREENING, BOTH BREASTS On: 23-Jul-2009 Intent ([id number])By: Zeinab Reddy MD EKG ([id number])By: Zeinab Reddy MD On: 23-Jul-2009 Intent Radiology - Abdomen SeriesBy: Jacy On: 19-Dec-2008 Intent DO Tracy TD Injection , IM ([id number])By: On: 21-Jan-2008 Intent Zeinab Reddy MD MAMMOGRAM, SCREENING, BOTH BREASTS On: 21-Jan-2008 Intent ([id number])By: Zeinab Reddy MD Planned Medications INJECTION, METHYLPREDNISOLONE [...] for Tdap vaccination (Renamed from Need for nlgzlxiall-awlnsyo-cglphaqoi (Tdap) vaccine, adult/adolescent) [facility] [...] not using any method of contraception at [facility] End: 30-Nov-2010 15:39 s time. Patient [...] from Hypercholesteremia (272.0)), Sleep disorder (780.50), [facility] V70.0 [facility] Payers Aliza bean guarantor
--- OUTSIDE RECORDS SUMMARY | 2018-10-10 11:20 | XMS RPT_ITS | Continuity of Care Document ---
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 UROBILINGN FANNY TIMED Normal mg/dL (Normal) UA - PROTEIN Negative mg/dL (Normal) UA - PH 6.0 (Normal) UA - BLOOD Hemolyzed Small (Normal) UA - SPECIFIC GRAVITY 1.030 (Abnormal) UA - KETONES Negative mg/dL (Normal) UA - BILIRUBIN Negative (Normal) UA - GLUCOSE Negative (Normal) :27 HgA1C , Office (24439) HgA1C , Office 5.9 % (Normal) Range: 4.6 - 7.1 :27 Blood Glucose , Office (72382) Blood Glucose , Office 109 (Normal) :03 IGP, Aptima HPV, Comments: Source.............Cervix;EndocervixNo. of containers..01 CYTYC Thin Prep VialPATIENT NOT FASTINGPERFORMED BY: =G [facility] Xbfkzcwwar609 [facility] W [id number] BY: WB [facility] rfx 16/18,[address] [id number] HPV Aptima Negative (Normal) Comments: This test [...] evaluation. No endocervical component is identified.Z01.419Margarita Reagan Freight Weigher (ASCP) :54 HEPATIC FUNCTION PANEL Comments: PATIENT WAS FASTINGPERFORMED BY: BN [facility] Gqfvmvmcql6903 [facility] [id number] BY: CB [facility] Ukcyrm7762 [facility] [id number] (52652) ALT (SGPT) 15 [iU]/L (Normal) Range: 0-32 AST (SGOT) 10 [iU]/L (Normal) Range: 0-40 Alkaline Phosphatase, S 87 [iU]/L (Normal) Range: 39-117 Bilirubin, Direct 0.20 mg/dL (Normal) Range: 0.00-0.40 Bilirubin, Total 0.9 mg/dL (Normal) Range: 0.0-1.2 Albumin, Serum 4.1 g/dL (Normal) Range: 3.5-5.5 Protein, Total, Serum 7.2 g/dL (Normal) Range: 6.0-8.5 96-Ura-131954:54 LIPOPROTEIN, BLD, BY NMR Comments: PATIENT WAS FASTINGPERFORMED BY: BN [facility] Zurqafmbsi6206 [facility] [id number] BY: CB [facility] Mscpue9817 [facility] [id number] (02513) LP-IR Score 82 (Abnormal) Comments: INSULIN RESISTANCE MARKER <--Insulin Sensitive Insulin Resistant--> Percentile in Reference PopulationInsulin Resistance ScoreLP-IR Score Low 25th 50th 75th High <27 27 45 63 >63LP-IR Score is inaccurate if patient is non-fasting. .The LP-IR score is a laboratory developed i banner that has beenassociated with insulin resistance and [...] were developed and their performance characteristicsdetermined by [employer]. These assays have not been cleared by [...] 1600 - 2000 Very High > 2000 47-Kup-616576:54 CALCIFEDIOL (23905) Comments: PATIENT WAS FASTINGPERFORMED BY: BN [facility] [address] [id number] BY: CB [facility] Zcgwxn7813 [facility] [id number] Vitamin D, 25-Hydroxy 35.2 ng/mL (Normal) Range: 30.0-100.0 Comments: Vitamin D deficiency has been defined by the Anton ofMedicine and an Endocrine Society practice guideline as alevel of serum 25-OH vitamin D less than 20 ng/mL (1,2).The Endocrine Society went on to further define vitamin Dinsufficiency as a level between 21 and 29 ng/mL (2).1. IOM (Anton of Medicine). 2010. Dietary reference intakes for calcium and D. [place]: The National Academies Press.2. Ritika MF, Demetrio ARORA, Barbara PENNY, et al. Evaluation, treatment, and prevention of vitamin D deficiency: an Endocrine Society clinical practice guideline. JCEM. 2010; 96(7):1911-30. 43-Uxa-392151:54 TESTOSTERONE FREE (69874) Comments: PATIENT WAS FASTINGPERFORMED BY: [employer] [id number] BY: [place] 7524070 [facility] [id number] Free Testosterone(Direct) 5.6 pg/mL (Abnormal) Range: 0.0-4.2 81-Zco-272906:54 FSH AND LH (58256) Comments: PATIENT WAS FASTINGPERFORMED BY: [employer] [id number] BY: [place] 7524070 [facility] [id number] FSH 25.4 m[iU]/mL (Normal) Comments: Follicular phase 3.5 - 12.5 Ovulation phase 4.7 - 21.5 Luteal phase 1.7 - 7.7 Postmenopausal 25.8 - 134.8 LH 40.2 m[iU]/mL (Normal) Comments: Follicular phase 2.4 - 12.6 Ovulation phase 14.0 - 95.6 Luteal phase 1.0 - 11.4 Postmenopausal 7.7 - 58.5 32-Xas-978350:54 DHEA-S (DEHYDROEPIANDROSTERONE Comments: PATIENT WAS FASTINGPERFORMED BY: [employer] [id number] BY: [place] 7524070 [facility] [id number] SULFATE) (02996) DHEA-Sulfate 119.9 ug/dL (Normal) Range: 29.4-220.5 1-Nft-093406:03 Thin prep Pap Comments: Source.............Cervix;EndocervixNo. of containers..01 CYTYC Thin Prep VialPATIENT NOT FASTINGPERFORMED BY: =G Lab[address] [id number] BY: iiko (07652) (no STD rp [address] [id number] Information: [id number] testing) Age Gdln ACOG Testing 30-65 (Normal) 62-Odj-79373:48 URINE DAVID CULTURE-IDENTIFICATN Comments: PATIENT NOT FASTINGPERFORMED BY: Eco-VacayNicole [place] 4635770 [facility] [id number] Information: [id number] (01687) Result 1 MUG (Normal) Comments: Mixed urogenital flora2,000 Colonies/mL Urine Culture,Comprehensive Final report (Normal) 52-Nuj-71524:05 Urinalysis, Office (67786) UA - LEUKOCYTE ESTERASE Negative (Normal) UA - NITRITE Negative (Normal) URINE UROBILINGN FANNY TIMED Normal mg/dL (Normal) UA - PROTEIN Negative mg/dL (Normal) UA - PH 5 (Abnormal) UA - BLOOD Non Hemolyzed Trace (Normal) UA - SPECIFIC GRAVITY 1.030 (Abnormal) UA - KETONES Negative mg/dL (Normal) UA - BILIRUBIN Negative (Normal) UA - GLUCOSE Negative (Normal) 78-Dph-540400:37 URINE DAVID CULTURE-IDENTIFICATN Comments: PATIENT NOT FASTINGPERFORMED BY: Eco-VacayNicole [place] 4635770 [facility] [id number] Information: [id number] (13747) Antimicrobial MIHEAD (Normal) Comments: S = Susceptible; [...] pneumoniae (Abnormal) Urine Final report Culture,Comprehensive (Abnormal) 97-Cqp-441428:17 MICROALBUMIN: CREATININE RATIO Comments: PATIENT WAS FASTINGPERFORMED BY: Eco-VacayNicole [place] 4635770 [facility] [id number] (95235) AND (62385) Microalb/Creat Ratio 6.1 {mg/g_creat} (Normal) Range: 0.0-30.0 Microalbumin, Urine 6.8 ug/mL (Normal) Range: 0.0-17.0 Comments: Effective January 25, 2016 the reference interval for Microalbumin, Urine will be changing to: Not Estab. Creatinine, Urine 111.5 mg/dL (Normal) Range: 15.0-278.0 Comments: Effective January 25, 2016 the reference interval for Creatinine, Urine will be changing to: Not Estab. 65-Ked-176137:17 METABOLIC PANEL, COMPREHENSIVE Comments: PATIENT WAS FASTINGPERFORMED BY: LabCoNewark [facility] Medical CenterMknmir1860 [facility] [id number] (68722) ALT (SGPT) 20 [iU]/L (Normal) Range: 0-32 [...] Glucose, Serum 118 mg/dL (Abnormal) Range: 65-99 74-Bqh-205509:17 LIPID PANEL (49248) Comments: PATIENT WAS FASTINGPERFORMED BY: iikoNewark [facility] Medical CenterMyjsow1563 [facility] [id number] LDL/HDL Ratio 3.4 {ratio_units} (Abnormal) Range: 0.0-3.2 [...] auto diff Comments: PATIENT WAS FASTINGPERFORMED BY: [employer] Krihtr2682 [facility] [id number] Information: [id number] (04363) Immature Grans (Abs) 0.0 {x10E3/uL} (Normal) Range: [...] {x10E3/uL} (Normal) Range: 3.4-10.8 :27 Urinalysis, Office (64189) UA - LEUKOCYTE ESTERASE Trace (Normal) UA [...] GLUCOSE Negative (Normal) :21 HgA1C , Office (50699) HgA1C , Office 6.6 % (Normal) Range: 4.6 - 7.1 :23 HgA1C , Office (67906) HgA1C , Office 5.7 % (Normal) Range: 4.6 - 7.1 :23 Blood Glucose , Office (31122) Blood Glucose , Office 101 (Normal) :42 [...] CHOL 199 mg/dL (Normal) Comments: <200 mg/dL Boydqvrnj922-298 mg/dL Borderline>240 mg/dL High Risk 07-Ixm-156488:01 Renal function Panel Comments: PATIENT NOT FASTINGPERFORMED BY: [facility]First[facility] [id number] Information: [id number] (82064) Albumin, Serum 4.5 g/dL (Normal) Range: 3.5-5.5 [...] Glucose, Serum 105 mg/dL (Abnormal) Range: 65-99 31-Ruk-042610:01 MAGNESIUM (38004) Comments: PATIENT NOT FASTINGPERFORMED BY: [employer] Technologiesin [place] [id number] Magnesium, Serum 1.8 mg/dL (Normal) Range: 1.6-2.6 :54 C-Reactive Protein (33437) Comments: PATIENT NOT FASTINGPERFORMED BY: [facility]6370 [facility] [id number] C-Reactive Protein, Quant 2.5 mg/L (Normal) Range: 0.0-4.9 :54 Sed Rate Erythrocyte (93818) Comments: PATIENT NOT FASTINGPERFORMED BY: [place] 7524070 [facility] [id number] Sedimentation Rate-Westergren 4 mm/h (Normal) Range: 0-40 :54 T4, FREE (THYROXINE) (41693) Comments: PATIENT NOT FASTINGPERFORMED BY: [facility]6370 [facility] [id number] T4,Free(Direct) 1.32 ng/dL (Normal) Range: 0.82-1.77 :54 TSH (55372) Comments: PATIENT NOT FASTINGPERFORMED BY: [place] 7524070 [facility] [id number] Information: [id number] TSH 1.770 {uIU/mL} (Normal) Range: 0.450-4.500 :39 HgA1C , Office (34526) HgA1C , Office 5.8 % (Normal) Range: 4.6 - 7.1 :39 Blood Glucose , Office (71846) Blood Glucose , Office 96 (Normal) :23 LIPID PANEL (75517) Comments: PATIENT WAS FASTINGPERFORMED BY: [place] 7524070 [facility] [id number] Information: [id number] LDL/HDL Ratio 2.6 {ratio_units} (Normal) Range: 0.0-3.2 LDL Cholesterol Calc 99 mg/dL (Normal) Range: 0-99 VLDL Cholesterol Jesús 41 mg/dL (Abnormal) Range: 5-40 HDL Cholesterol 38 mg/dL (Abnormal) Comments: According to ATP-III Guidelines, HDL-C >59 mg/dL is considered anegative risk factor for CHD. Triglycerides 204 mg/dL (Abnormal) Range: 0-149 Cholesterol, Total 178 mg/dL (Normal) Range: 100-199 :23 HEPATIC FUNCTION PANEL (32077) Comments: PATIENT WAS FASTINGPERFORMED BY: [employer]70 [facility] [id number] ALT (SGPT) 23 [iU]/L (Normal) Range: 0-32 AST (SGOT) 19 [iU]/L (Normal) Range: 0-40 Alkaline Phosphatase, S 84 [iU]/L (Normal) Range: 39-117 Bilirubin, Direct 0.23 mg/dL (Normal) Range: 0.00-0.40 Bilirubin, Total 1.0 mg/dL (Normal) Range: 0.0-1.2 Albumin, Serum 4.4 g/dL (Normal) Range: 3.5-5.5 Protein, Total, Serum 7.2 g/dL (Normal) Range: 6.0-8.5 :42 MICROALBUMIN: CREATININE RATIO Comments: PATIENT WAS FASTINGPERFORMED BY: [employer]70 [facility] [id number] (81726) AND (13279) Creatinine, Urine 152.1 mg/dL (Normal) Range: 15.0-278.0 Microalb/Creat Ratio 23.3 {mg/g_creat} (Normal) Range: 0.0-30.0 Microalbumin, Urine 35.5 ug/mL (Abnormal) Range: 0.0-17.0 :42 METABOLIC PANEL, COMPREHENSIVE Comments: PATIENT WAS FASTINGPERFORMED BY: [employer]70 [facility] [id number] (01000) ALT (SGPT) 18 [iU]/L (Normal) Range: 0-32 [...] mg/dL (Abnormal) Range: 65-99 :42 LIPID PANEL (18085) Comments: PATIENT WAS FASTINGPERFORMED BY: [employer]6370 [employer] [facility] [id number] LDL/HDL Ratio 3.5 {ratio_units} (Abnormal) Range: 0.0-3.2 [...] MANUAL DIFF Comments: PATIENT WAS FASTINGPERFORMED BY: [employer]6370 [facility] [id number] Information: [id number] (72132) Immature Grans (Abs) 0.0 {x10E3/uL} (Normal) Range: [...] (Normal) Range: 3.4-10.8 :35 HgA1C , Office (82584) HgA1C , Office 6.4 % (Normal) Range: 4.6 - 7.1 :34 Blood Glucose , Office (39793) Blood Glucose , Office 124 (Normal) 73-Gqn-292230:21 Rapid Flu (15811 x 2) Influenza A Ag negative (Normal) 72-Tjp-414700:23 MICROALBUMIN: CREATININE RATIO Comments: PATIENT NOT FASTINGPERFORMED BY: iikoNewark [facility] Medical CenterGdmdyv6859 [facility] [id number] (25830) AND (36926) Microalb/Creat Ratio 3.5 {mg/g_creat} (Normal) Range: 0.0-30.0 Microalbumin, Urine 5.6 ug/mL (Normal) Range: 0.0-17.0 Creatinine, Urine 158.0 mg/dL (Normal) Range: 15.0-278.0 18-Adb-579110:23 METABOLIC PANEL, COMPREHENSIVE Comments: PATIENT NOT FASTINGPERFORMED BY: iiko Rgxzmy4733 [facility] [id number] (66915) ALT (SGPT) 16 [iU]/L (Normal) Range: 0-32 [...] Glucose, Serum 101 mg/dL (Abnormal) Range: 65-99 85-Jbo-993026:23 CBC WITH MANUAL DIFF Comments: PATIENT NOT FASTINGPERFORMED BY: LabCoNewark [facility] Medical CenterMutcwd5820 [facility] [id number] Information: [id number] (76417) Immature Grans (Abs) 0.0 {x10E3/uL} (Normal) Range: [...] Range: 4.0-10.5 :52 Blood Glucose , Office (26223) Blood Glucose , Office 116 (Normal) 35-Nsh-838119:52 HgA1C , Office (25083) HgA1C , Office 6.2 % (Normal) Range: 4.6 - 7.1 :37 Rapid Flu (67362 x 2) Influenza A Ag negative (Normal) :27 HgA1C , Office (48254) HgA1C , Office 5.7 % (Normal) Range: 4.6 - 7.1 :27 Blood Glucose , Office (75148) Blood Glucose , Office 98 (Normal) :18 CREATININE CLEARANCE Comments: PATIENT NOT FASTINGPERFORMED BY: [employer] [id number] Information: [id number] (81087) 24 HOUR Creatinine Clearance 104 mL/min (Normal) Range: 88-128 Comments: The above range is based on 1.73 square meter average body surfacearea. Creatinine, Ur 24hr 1169.7 {mg/24_hr} (Normal) Range: 800.0-1800.0 Creatinine, Urine 55.7 mg/dL (Normal) Range: 15.0-278.0 eGFR If Africn Am 99 mL/min/1.73 (Normal) eGFR If NonAfricn Am 86 mL/min/1.73 (Normal) Creatinine, Serum 0.78 mg/dL (Normal) Range: 0.57-1.00 :43 LIPID PANEL (25932) Comments: PATIENT WAS FASTINGPERFORMED BY: LabCoAbigail Ville 6633170 [facility] [id number] Information: [id number] LDL/HDL Ratio 3.0 {ratio_units} (Normal) Range: 0.0-3.2 LDL Cholesterol Calc 145 mg/dL (Abnormal) Range: 0-99 VLDL Cholesterol Jesús 61 mg/dL (Abnormal) Range: 5-40 HDL Cholesterol 48 mg/dL (Normal) Comments: According to ATP-III Guidelines, HDL-C >59 mg/dL is considered anegative risk factor for CHD. Triglycerides 307 mg/dL (Abnormal) Range: 0-149 Cholesterol, Total 254 mg/dL (Abnormal) Range: 100-199 :53 HgA1C , Office (23110) HgA1C , Office 6.8 % (Normal) Range: 4.6 - 7.1 94-Uju-897180:53 Blood Glucose , Office (79560) Blood Glucose , Office 111 (Normal) 48-Nxi-592948:03 Thin prep Pap Comments: Source.............Cervical;EndocervicalNo. of containers..01 CYTYC Thin Prep VialPATIENT NOT FASTINGPERFORMED BY: [facility]Co[address] AzraBoston [facility] Medical Centerrosemariepenn [facility] [place] [id number] Information: [id number] (63412) Note: PAPSMR (Normal) Comments: The Pap smear [...] is identified.V72.31 ; Routine gynecological examinationCyntyovany Nails Freight Weigher (ASCP) 18-Iky-531854:06 HgA1C , Office (75355) HgA1C , Office 5.8 % (Normal) Range: 4.6 - 7.1 70-Ikt-247462:06 Blood Glucose , Office (00544) Blood Glucose , Office 100 (Normal) 16-Rox-824147:19 BILAT SCRN DIGITAL & CAD Radiology Report See Note (Normal) Comments: Exam Number: [id number] MAMMOGRAM, BILATERAL SCREENING DIGITAL AND CAD HISTORYRoutine [...] mammograms werealso examined with computer-aided detection software ([employer], [employer] Reported By: CASEY WARD M.D. :27 HgA1C , Office (56366) HgA1C , Office 5.7 % (Normal) Range: [...] T PROT 7.6 g/dL (Normal) Range: 6.4-8.2 56-Nyv-99704:11 ROUTINE UA BILIRUBIN URINE SeeNote (Normal) Comments: [...] 0.2 EU/dl (Normal) Range: 0.2 - 1.0 83-Vhb-700090:09 Pap Lb, Ct-Ng, Comments: Source.............Cervical;EndocervicalNo. of containers..01 CYTYC Thin Prep VialClinical Information: [id number] PERFORMED BY: =G [facility] [id number] HPV-hr . . (Normal) Chlamydia, Nuc. Acid Amp Negative (Normal) DIAGNOSIS: SPRCS (Normal) Comments: NEGATIVE FOR INTRAEPITHELIAL LESION AND MALIGNANCY.Satisfactory for evaluation. Endocervical and/or squamous metaplasticcells (endocervical component) are present.789.07 ; Abdominal pain, g eneralizedG Iveth Ugalde, Supervisory Freight Weigher (ASCP) Gonococcus, Nuc. Acid Amp Negative (Normal) [...] :08 Genital Culture, Routine Comments: PERFORMED BY: [employer]6370 [facility] [id number] Genital Culture, Routine Final report (Normal) Result 1 RGF (Normal) Comments: Routine genital gerard. :08 Vaginitis/Vaginosis, DNA Probe Comments: Clinical Information: SRC:VA PERFORMED BY: IMGuest Raenpm5041 [facility] [id number] Nathaniel species Negative (Normal) Gardnerella vaginalis Negative (Normal) Trichomonas vaginalis Negative (Normal) 9-Tig-818584:5 C-REACTIVE PROT 5.99 mg/L (Normal) Range: 0.0-6.0 0 Comments: Test performed using the Dimension C-Reactive ProteinExtended Range assay method. This assay meets the AHA/CDC 2003 recommendations fordetermining patients at high risk for cardiovasculardisease. Reference: High risk CRP >3.0 mg/L 5-Kvi-590250:50 CBCD,SMEAR DIFF BAND 4 % (Normal) Range: [...] 47-70 WBC 7.2 K/mm3 (Normal) Range: 4.4-11.0 0-Xmz-025444:50 COMP METABOLIC A/G 1.1 {RATIO} (Normal) Range: [...] T PROT 7.4 g/dL (Normal) Range: 6.4-8.2 8-Jsu-450937:50 ESR SED RATE 11 mm/h (Normal) Range: 0-30 7-Eeh-909395:53 ACUTE ABDOMEN, INC CHEST (MT) Radiology Report See Note (Normal) Comments: Exam Number: [id number] ACUTE ABDOMEN INCLUDING CHEST HISTORYEpigastric pain since [...] methodology of Hgb A1C has changed to [place] BehringDimension RXL. No significant changes in patientresults [...] Thin prep Pap Comments: Source.............Cervical;EndocervicalLMP / Prev Treat...GMB=724162Nc. of containers..01 CYTYC Thin Prep VialPATIENT NOT FASTINGClinical Information: ADD [id number] PERFORMED BY: [employer] (94130) [facility] [place] [address] [place] [id number] . . (Normal) DIAGNOSIS: SPRCS (Normal) Comments: [...] resulttherefore, no HPV testing was performed. . 47-Hlm-40507:28 BILAT SCRN DIGITAL & CAD Radiology Report See Note (Normal) Comments: Exam Number: [id number] BILATERAL SCREENING DIGITAL MAMMOGRAM CLINICAL INFORMATIONScreening. Bilateral [...] mammogramswere also examined with computer- aided detection software([employer] Reported By: BALBIR GATICA M.D. Plan [...] V70.0 Planned Observations LIPOPROTEIN, BLD, BY NMR (48503)Indication: Hypercholesteremia On: :44 Request HEPATIC FUNCTION PANEL (78894)Indication: Hypercholesteremia On: :44 Request Homocysteine, Plasma (64722)Indication: MTHFR mutation On: :24 Request MICROALBUMIN: CREATININE RATIO (07469) AND (98880)Indication: Hypertension, benign On: 99-Iaj-021660:01 Request URINALYSIS (34560)Indication: Hypertension, benign On: 05-Huc-003910:01 Request D-Dimer (91292)Indication: Multiple pulmonary emboli On: 5-Ukd-019594:21 Request Rapid Strep Test, Office (78308)Indication: Acute pharyngitis On: 33-Fyn-366399:53 Request Homocysteine, Plasma (99078)Indication: Elevated serum homocysteine level On: 98-Yjb-958658:08 Request CBC W/AUTO DIFF WBC (17270)Indication: Multiple pulmonary emboli On: 31-Enf-915475:45 Request Homocysteine, Plasma (40629)Indication: Multiple pulmonary emboli On: :24 Request Comments: please add to labs drawn pre coag MTHFR (61230)Indication: Multiple pulmonary emboli On: :24 Request Comments: please add to labs drawn pre coag TESTOSTERONE FREE (67632)Indication: Elevated testosterone level in female On: 22-Sep-20169:52 Request METABOLIC PANEL, COMPREHENSIVE (57081)Indication: Hypercholesteremia On: 2-Uxd-296719:14 Request LIPOPROTEIN, BLD, BY NMR (28574)Indication: Hypercholesteremia On: 6-Nsd-630598:14 Request Cortisol,Urinary Free 24- Hour Urine (06936)Indication: Diabetes mellitus type II, controlled, with no complications On: 26-May-20168:34 Request URINALYSIS (14103)Indication: UTI (urinary tract infection) On: 11-Arz-562854:04 Request Comments: recheck 10 days after ATB URINE DAVID CULTURE-IDENTIFICATN (21435)Indication: UTI (urinary tract infection) On: 80-Pha-065072:03 Request Comments: recheck 10 days after ATB CBC with auto diff (41049)Indication: Diabetes mellitus type II, controlled, with no complications On: 40-Gjr-630881:14 Request LIPID PANEL (59947)Indication: Hypercholesteremia On: 43-Rox-898016:14 Request METABOLIC PANEL, COMPREHENSIVE (16009)Indication: Diabetes mellitus type II, controlled, with no complications On: 89-Yhu-433420:14 Request MICROALBUMIN: CREATININE RATIO (66889) AND (28948)Indication: Diabetes mellitus type II, controlled, with no complications On: 17-Yej-444225:14 Request Hemoglobin Glyclated (HGB A1C) (24017)Indication: Diabetes mellitus type II, controlled, with no complications On: 14-Fat-860127:14 Request METABOLIC PANEL, COMPREHENSIVE (08588)Indication: Diabetes mellitus type II, controlled, with no complications On: 11-Uxy-637076:20 Request LIPID PANEL (27860)Indication: Diabetes mellitus type II, controlled, with no complications On: :20 Request CBC W/AUTO DIFF WBC (19623)Indication: Diabetes mellitus type II, controlled, with no complications On: :20 Request MICROALBUMIN: CREATININE RATIO (91780) AND (51349)Indication: Diabetes mellitus type II, controlled, with no complications On: :59 Request METABOLIC PANEL, COMPREHENSIVE (65305)Indication: Diabetes mellitus type II, controlled, with no complications On: :59 Request LIPID PANEL (08599)Indication: Diabetes mellitus type II, controlled, with no complications On: :59 Request CBC WITH MANUAL DIFF (88528)Indication: Diabetes mellitus type II, controlled, with no complications On: :59 Request MICROALBUMIN: CREATININE RATIO (00695) AND (97250)Indication: Diabetes mellitus type 2, uncontrolled, without complications On: 76-Jdf-015255:10 Request PT (Prothrobim Time) (82421)Indication: Pre-operative examination On: 65-Oxm-052325:13 Request PTT (Activated Partial Thromboplastin Time) (52924)Indication: Pre-operative examination On: 47-Wmr-340964:13 Request CBC with manual diff (15008)Indication: Pre-operative examination On: 80-Deh-379215:13 Request Metabolic Panel, Basic (14924)Indication: Pre-operative examination On: 74-Khj-787572:11 Request Lipid Panel (11127)Indication: Hypertension, benign On: :31 Request TSH (22366)Indication: Hypertension, benign On: : Request URINALYSIS, W/ MICRO (21510)Indication: Hypertension, benign On: :31 Request MICROALBUMIN: CREATININE RATIO (64353) AND (61737)Indication: Hypertension, benign On: : Request METABOLIC PANEL, COMPREHENSIVE (03577)Indication: Hypertension, benign On: : Request LIPOPROTEIN, BLD, BY NMR (43165)Indication: Hypertension, benign On: : Request LIPID PANEL (16366)Indication: Hypertension, benign On: : Request CBC WITH MANUAL DIFF (80386)Indication: Hypertension, benign On: Request thin prep (70686) (std testing)Indication: Abdominal pain, acute, generalized On: : Request NEISSERIA (17634) (THIN PREP OBTAINED)Indication: Abdominal pain, acute, generalized On: Request CHLAMYDIA (84384) (thin prep obtained)Indication: Abdominal pain, acute, generalized On: : Request INFCT ANTGN TRICH VAGIN DIRECT PRB (87479)Indication: Abdominal pain, acute, generalized On: Request GARDNERELLA VAG, NUCLEIC ACID DIR PROBE (75456)Indication: Abdominal pain, acute, generalized On: Request NATHANIEL, NUCLEIC ACID DIRECT PROBE (91230)Indication: Abdominal pain, acute, generalized On: Request DAVID CULTURE-OTHER ([id number])Indication: Abdominal pain, acute, generalized On: :27 Request CBC (Auto) ([id number])Indication: Abdominal pain, acute, generalized On: : Request Metabolic Panel, Comprehensive ([id number])Indication: Abdominal pain, acute, generalized On: :26 Request Urinalysis, Office ([id number])Indication: Abdominal pain, acute, generalized On: [id number]-[id number]:44 Request C-REACTIVE PROTEIN ([id number])Indication: Epigastric pain On: :24 Request SED RATE ERYTHROCYTE ([id number])Indication: Epigastric pain On: :24 Request METABOLIC PANEL, COMPREHENSIVE ([id number])Indication: Epigastric pain On: :24 Request CBC WITH MANUAL DIFF ([id number])Indication: Epigastric pain On: :23 Request Hemoglobin Glyclated (HGB A1C) ([id number])Indication: Hypoglycemia On: [id number]-Vel-824226:21 Request Lipid Panel ([id number])Indication: Hypercholesteremia On: 0-Uin-531413:21 Request Planned Encounters Medical; 3 Month FU - On: 26-Oct-2018 13:30 [facility] Jeannie LIANG, Alycia Jeannie LIANG, Alycia Planned Procedures TDAP VACCINE >7 IM ([id number])By: On: 18-Jul-2018 Intent Zeinab Reddy MD US DOPPLER CAROTID BILATERAL On: 18-Jul-2018 Intent ([id number])By: Zeinab Reddy MD DEXA SCAN AXIAL SKELETON ([id number])By: On: 18-Jul-2018 Intent Zeinab Reddy MD SCREENING DIGITAL TOMOSYNTHESIS OF On: 18-Jul-2018 Intent BREAST ([id number])By: Zeinab Reddy MD SCREENING DIGITAL TOMOSYNTHESIS OF On: 13-Jul-2017 Intent BREAST ([id number])By: Zeinab Reddy MD EKG ([id number])By: Zeinab Reddy MD On: 21-Nov-2016 Intent Ultrasound - PelvisBy: Barry GONZALEZ, On: 24-Oct-2016 Intent Zeinab Varma Comments: copy to Dr. mcdaniel. CT - Abdomen (IV Contrast Needed)By: On: 26-Aug-2016 Intent Zeinab Reddy MD Comments: attention adrenals. Flu Vaccine (Quadrivalent) [id number]: On: 04-Jul-2016 Intent Zeinab Reddy MD US DOPPLER CAROTID BILATERAL On: 26-May-2016 Intent ([id number])By: Zeinab Reddy MD DEXA SCAN AXIAL SKELETON ([id number])By: On: 26-May-2016 Intent Zeinab Reddy MD BILATERAL MAMMOGRAMS ([id number])By: On: 26-May-2016 Intent Zeinab Reddy MD Nuclear Stress Test/Stress On: 05-Aug-2014 Intent SPECT/TreadmillBy: Carlotta Dennis CNP, CNP, Alycia Carotid DopplerBy: Zeinab Reddy MD On: 06-Jun-2014 Intent M Comments: dizzy MRI - Brain (IV Contrast Needed)By: On: 06-Jun-2014 Intent Zeinab Reddy MD Holter Monitor 24 hrsBy: aBrry GONZALEZ, On: 06-Jun-2014 Intent Zeinab Varma EKG ([id number])By: Zeinab Reddy MD On: 02-Jun-2014 Intent Comments: see scanned document of test done to see results reviewed today with patient MAMMOGRAM, SCREENING, BOTH BREASTS On: 21-Jan-2014 Intent ([id number])By: Zeinab Reddy MD Eprescribed prescriptions ([id number])By: On: 21-Jan-2014 Intent Zeinab Reddy MD Aerosol Treatment ([id number])By: Jacy On: 07-Nov-2013 Intent Tracy MURPHY Comments: after aerosol - more a/e less inspir noise but lots of exp noise Spirometry ([id number])By: Jacy MURPHY, On: 07-Nov-2013 Intent Tracy Comments: poor effort and difficult time diong with coughjing -- restriction shown Eprescribed prescriptions ([id number])By: On: 07-Nov-2013 Intent Tracy Louie DO Aerosol Treatment ([id number])By: Jeannie On: 24-Sep-2012 Intent Carlotta LIANG CNP, Mary E Eprescribed prescriptions ([id number])By: On: 12-Jun-2012 Intent Tania Ledbetter LPN IMMUNIZ ADMNIN, 1 VAC, SNGL/COMBO On: 12-Jun-2012 Intent ([id number])By: Tania Ledbetter LPN FLU VAC, SPLIT, >3 YEARS, INTRAMUSC On: 12-Jun-2012 Intent ([id number])By: Tania Ledbetter LPN ELECTROCARDIOGRAM, COMPLETE (ECG) On: 10-Apr-2012 Intent ([id number])By: Carlotta Dennis CNP, CNP, Mary E Spirometry ([id number])By: Dwight MURPHY, On: 10-Jan-2011 Intent Valarie A Comments: done km- good effort and curve- mod obst Solu -Medrol Injection, 125 mg On: 10-Jan-2011 Intent ([id number])By: Jessica Alba LPN Comments: 2ml given im rt hip lotobjk2 exp 1-14 Pulse Oximetry ([id number])By: Dwight MURPHY, On: 10-Jan-2011 Intent Valarie A Comments: 96% Aerosol Treatment ([id number])By: Dwight On: 10-Jan-2011 Intent Valarie MURPHY Comments: done with albuterol 0.83%pt tolerated well MAMMOGRAM, SCREENING, BOTH BREASTS On: 30-Nov-2010 Intent ([id number])By: Zeinab Reddy MD MAMMOGRAM, SCREENING, BOTH BREASTS On: 23-Jul-2009 Intent ([id number])By: Zeinab Reddy MD EKG ([id number])By: Zeinab Reddy MD On: 23-Jul-2009 Intent Radiology - Abdomen SeriesBy: Jacy On: 19-Dec-2008 Intent DO Tracy TD Injection , IM ([id number])By: On: 21-Jan-2008 Intent Zeinab Reddy MD MAMMOGRAM, SCREENING, BOTH BREASTS On: 21-Jan-2008 Intent ([id number])By: Zeinab Reddy MD Planned Medications INJECTION, METHYLPREDNISOLONE [...] for Tdap vaccination (Renamed from Need for jkisyvadvp-hkpxwbt-yantkjquc (Tdap) vaccine, adult/adolescent) [facility] [...] Patient has been compliant with instructions. Current ut End: 18-Jan-2015 22:33 dication use: no side [...] (Renamed from Hypercholesteremia (272.0)), Sleep disorder (780.50), [facility] V70.0 [facility] Payers Aliza bean guarantor
--- OUTSIDE RECORDS SUMMARY | 2018-10-10 11:21 | XMS RPT_ITS | Continuity of Care Document ---
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 Negative (Normal) Comments: This test [...] evaluation. No endocervical component is identified.Z01.419Margarita Reagan Latrine Cleaner (ASCP) :54 HEPATIC FUNCTION PANEL Comments: PATIENT WAS FASTINGPERFORMED BY: BN [facility] Bzrvndbqwh1864 [facility] [id number] BY: CB [facility] Uckiag0268 [facility] [id number] (90744) ALT (SGPT) 15 [iU]/L (Normal) Range: 0-32 AST (SGOT) 10 [iU]/L (Normal) Range: 0-40 Alkaline Phosphatase, S 87 [iU]/L (Normal) Range: 39-117 Bilirubin, Direct 0.20 mg/dL (Normal) Range: 0.00-0.40 Bilirubin, Total 0.9 mg/dL (Normal) Range: 0.0-1.2 Albumin, Serum 4.1 g/dL (Normal) Range: 3.5-5.5 Protein, Total, Serum 7.2 g/dL (Normal) Range: 6.0-8.5 89-Yxo-766027:54 LIPOPROTEIN, BLD, BY NMR Comments: PATIENT WAS FASTINGPERFORMED BY: BN [facility] Qpwahnrukk9346 [facility] [id number] BY: CB [facility] Cztbhr8394 [facility] [id number] (79745) LP-IR Score 82 (Abnormal) Comments: INSULIN RESISTANCE MARKER <--Insulin Sensitive Insulin Resistant--> Percentile in Reference PopulationInsulin Resistance ScoreLP-IR Score Low 25th 50th 75th High <27 27 45 63 >63LP-IR Score is inaccurate if patient is non-fasting. .The LP-IR score is a laboratory developed i [facility] that has beenassociated with insulin [...] were developed and their performance characteristicsdetermined by [employer]. These assays have not been cleared by [...] 1600 - 2000 Very High > 2000 30-Xvr-414023:54 CALCIFEDIOL (20667) Comments: PATIENT WAS FASTINGPERFORMED BY: BN [facility] [address] [id number] BY: CB [facility] Hdpciy2730 [facility] [id number] Vitamin D, 25-Hydroxy 35.2 ng/mL (Normal) Range: 30.0-100.0 Comments: Vitamin D deficiency has been defined by the [place] [employer] and an Endocrine Society practice guideline as alevel of serum 25-OH vitamin D less than 20 ng/mL (1,2).The Endocrine Society went on to further define vitamin Dinsufficiency as a level between 21 and 29 ng/mL (2).1. IOM ([place] [employer]). 2010. Dietary reference intakes for calcium and D. [place]: The National Academies Press.2. Ritika MF, Demetrio ARORA, Barbara PENNY, et al. Evaluation, treatment, and prevention of vitamin D deficiency: an Endocrine Society clinical practice guideline. JCEM. 2010; 96(7):1911-30. 34-Mil-907881:54 TESTOSTERONE FREE (47642) Comments: PATIENT WAS FASTINGPERFORMED BY: [employer] [id number] BY: [place] 1171070 [facility] [id number] Free Testosterone(Direct) 5.6 pg/mL (Abnormal) Range: 0.0-4.2 17-Utc-219649:54 FSH AND LH (03978) Comments: PATIENT WAS FASTINGPERFORMED BY: [employer] [id number] BY: [place] 1171070 [facility] [id number] FSH 25.4 m[iU]/mL (Normal) Comments: Follicular phase 3.5 - 12.5 Ovulation phase 4.7 - 21.5 Luteal phase 1.7 - 7.7 Postmenopausal 25.8 - 134.8 LH 40.2 m[iU]/mL (Normal) Comments: Follicular phase 2.4 - 12.6 Ovulation phase 14.0 - 95.6 Luteal phase 1.0 - 11.4 Postmenopausal 7.7 - 58.5 16-Qrc-381406:54 DHEA-S (DEHYDROEPIANDROSTERONE Comments: PATIENT WAS FASTINGPERFORMED BY: [employer] [id number] BY: [place] 1171070 [facility] [id number] SULFATE) (76250) DHEA-Sulfate 119.9 ug/dL (Normal) Range: 29.4-220.5 7-Owy-610959:03 Thin prep Pap Comments: Source.............Cervix;EndocervixNo. of containers..01 CYTYC Thin Prep VialPATIENT NOT FASTINGPERFORMED BY: =G Lab[address] [id number] BY: cicayda (91221) (no STD rp [address] [id number] Information: [id number] testing) Age Gdln ACOG Testing 30-65 (Normal) 90-Pnj-63334:48 URINE DAVID CULTURE-IDENTIFICATN Comments: PATIENT NOT FASTINGPERFORMED BY: BrightBytesMonica [place] 6343070 [facility] [id number] Information: [id number] (48748) Result 1 MUG (Normal) Comments: Mixed urogenital flora2,000 Colonies/mL Urine Culture,Comprehensive Final report (Normal) 63-Acl-09303:05 Urinalysis, Office (88625) UA - LEUKOCYTE ESTERASE Negative (Normal) UA - NITRITE Negative (Normal) URINE UROBILINGN FANNY TIMED Normal mg/dL (Normal) UA - PROTEIN Negative mg/dL (Normal) UA - PH 5 (Abnormal) UA - BLOOD Non Hemolyzed Trace (Normal) UA - SPECIFIC GRAVITY 1.030 (Abnormal) UA - KETONES Negative mg/dL (Normal) UA - BILIRUBIN Negative (Normal) UA - GLUCOSE Negative (Normal) 66-Qjy-098473:37 URINE DAVID CULTURE-IDENTIFICATN Comments: PATIENT NOT FASTINGPERFORMED BY: BrightBytesMon[place] 6343070 [facility] [id number] Information: [id number] (93260) Antimicrobial MIHEAD (Normal) Comments: S = Susceptible; [...] pneumoniae (Abnormal) Urine Final report Culture,Comprehensive (Abnormal) 03-Bae-683235:17 MICROALBUMIN: CREATININE RATIO Comments: PATIENT WAS FASTINGPERFORMED BY: BrightBytesMonica [place] 6343070 [facility] [id number] (12434) AND (14359) Microalb/Creat Ratio 6.1 {mg/g_creat} (Normal) Range: 0.0-30.0 Microalbumin, Urine 6.8 ug/mL (Normal) Range: 0.0-17.0 Comments: Effective January 25, 2016 the reference interval for Microalbumin, Urine will be changing to: Not Estab. Creatinine, Urine 111.5 mg/dL (Normal) Range: 15.0-278.0 Comments: Effective January 25, 2016 the reference interval for Creatinine, Urine will be changing to: Not Estab. 13-Oft-032818:17 METABOLIC PANEL, COMPREHENSIVE Comments: PATIENT WAS FASTINGPERFORMED BY: LabCoSaint Clare's Hospital at SussexTtizqg4414 [facility] [id number] (32397) ALT (SGPT) 20 [iU]/L (Normal) Range: 0-32 [...] Glucose, Serum 118 mg/dL (Abnormal) Range: 65-99 82-Wdq-048233:17 LIPID PANEL (93538) Comments: PATIENT WAS FASTINGPERFORMED BY: cicaydaSaint Clare's Hospital at SussexQgslyb3158 [facility] [id number] LDL/HDL Ratio 3.4 {ratio_units} (Abnormal) Range: 0.0-3.2 [...] auto diff Comments: PATIENT WAS FASTINGPERFORMED BY: [employer] Ksrjfw3050 [facility] [id number] Information: [id number] (72010) Immature Grans (Abs) 0.0 {x10E3/uL} (Normal) Range: [...] {x10E3/uL} (Normal) Range: 3.4-10.8 :27 Urinalysis, Office (39344) UA - LEUKOCYTE ESTERASE Trace (Normal) UA [...] GLUCOSE Negative (Normal) :21 HgA1C , Office (82964) HgA1C , Office 6.6 % (Normal) Range: 4.6 - 7.1 :23 HgA1C , Office (43415) HgA1C , Office 5.7 % (Normal) Range: 4.6 - 7.1 :23 Blood Glucose , Office (01147) Blood Glucose , Office 101 (Normal) :42 [...] CHOL 199 mg/dL (Normal) Comments: <200 mg/dL Pdwyekzri604-049 mg/dL Borderline>240 mg/dL High Risk 24-Eax-767787:01 Renal function Panel Comments: PATIENT NOT FASTINGPERFORMED BY: [facility] [id number] Information: [id number] (62479) Albumin, Serum 4.5 g/dL (Normal) Range: 3.5-5.5 [...] Glucose, Serum 105 mg/dL (Abnormal) Range: 65-99 95-Pgn-393121:01 MAGNESIUM (28965) Comments: PATIENT NOT FASTINGPERFORMED BY: REPPin [place] [id number] Magnesium, Serum 1.8 mg/dL (Normal) Range: 1.6-2.6 :54 C-Reactive Protein (09455) Comments: PATIENT NOT FASTINGPERFORMED BY: [facility]6370 [facility] [id number] C-Reactive Protein, Quant 2.5 mg/L (Normal) Range: 0.0-4.9 :54 Sed Rate Erythrocyte (19646) Comments: PATIENT NOT FASTINGPERFORMED BY: [place] 1171070 [facility] [id number] Sedimentation Rate-Westergren 4 mm/h (Normal) Range: 0-40 :54 T4, FREE (THYROXINE) (15443) Comments: PATIENT NOT FASTINGPERFORMED BY: [facility]6370 [facility] [id number] T4,Free(Direct) 1.32 ng/dL (Normal) Range: 0.82-1.77 :54 TSH (45129) Comments: PATIENT NOT FASTINGPERFORMED BY: [place] 1171070 [facility] [id number] Information: [id number] TSH 1.770 {uIU/mL} (Normal) Range: 0.450-4.500 :39 HgA1C , Office (60414) HgA1C , Office 5.8 % (Normal) Range: 4.6 - 7.1 :39 Blood Glucose , Office (49466) Blood Glucose , Office 96 (Normal) :23 LIPID PANEL (47379) Comments: PATIENT WAS FASTINGPERFORMED BY: [place] 1171070 [facility] [id number] Information: [id number] LDL/HDL Ratio 2.6 {ratio_units} (Normal) Range: 0.0-3.2 LDL Cholesterol Calc 99 mg/dL (Normal) Range: 0-99 VLDL Cholesterol Jesús 41 mg/dL (Abnormal) Range: 5-40 HDL Cholesterol 38 mg/dL (Abnormal) Comments: According to ATP-III Guidelines, HDL-C >59 mg/dL is considered anegative risk factor for CHD. Triglycerides 204 mg/dL (Abnormal) Range: 0-149 Cholesterol, Total 178 mg/dL (Normal) Range: 100-199 :23 HEPATIC FUNCTION PANEL (17170) Comments: PATIENT WAS FASTINGPERFORMED BY: [employer]70 [facility] [id number] ALT (SGPT) 23 [iU]/L (Normal) Range: 0-32 AST (SGOT) 19 [iU]/L (Normal) Range: 0-40 Alkaline Phosphatase, S 84 [iU]/L (Normal) Range: 39-117 Bilirubin, Direct 0.23 mg/dL (Normal) Range: 0.00-0.40 Bilirubin, Total 1.0 mg/dL (Normal) Range: 0.0-1.2 Albumin, Serum 4.4 g/dL (Normal) Range: 3.5-5.5 Protein, Total, Serum 7.2 g/dL (Normal) Range: 6.0-8.5 :42 MICROALBUMIN: CREATININE RATIO Comments: PATIENT WAS FASTINGPERFORMED BY: [employer]70 [facility] [id number] (02951) AND (44701) Creatinine, Urine 152.1 mg/dL (Normal) Range: 15.0-278.0 Microalb/Creat Ratio 23.3 {mg/g_creat} (Normal) Range: 0.0-30.0 Microalbumin, Urine 35.5 ug/mL (Abnormal) Range: 0.0-17.0 :42 METABOLIC PANEL, COMPREHENSIVE Comments: PATIENT WAS FASTINGPERFORMED BY: [employer]70 [facility] [id number] (78088) ALT (SGPT) 18 [iU]/L (Normal) Range: 0-32 [...] mg/dL (Abnormal) Range: 65-99 :42 LIPID PANEL (39651) Comments: PATIENT WAS FASTINGPERFORMED BY: [employer]6370 mmCHANNEL [facility] [id number] LDL/HDL Ratio 3.5 {ratio_units} (Abnormal) Range: 0.0-3.2 [...] MANUAL DIFF Comments: PATIENT WAS FASTINGPERFORMED BY: [employer]fer6370 [facility] [id number] Information: [id number] (58221) Immature Grans (Abs) 0.0 {x10E3/uL} (Normal) Range: [...] (Normal) Range: 3.4-10.8 :35 HgA1C , Office (91213) HgA1C , Office 6.4 % (Normal) Range: 4.6 - 7.1 :34 Blood Glucose , Office (69449) Blood Glucose , Office 124 (Normal) 85-Kbn-680867:21 Rapid Flu (10390 x 2) Influenza A Ag negative (Normal) 57-Rmh-875833:23 MICROALBUMIN: CREATININE RATIO Comments: PATIENT NOT FASTINGPERFORMED BY: cicaydaSaint Clare's Hospital at SussexMcaogk8494 [facility] [id number] (47958) AND (38006) Microalb/Creat Ratio 3.5 {mg/g_creat} (Normal) Range: 0.0-30.0 Microalbumin, Urine 5.6 ug/mL (Normal) Range: 0.0-17.0 Creatinine, Urine 158.0 mg/dL (Normal) Range: 15.0-278.0 08-Ulp-711929:23 METABOLIC PANEL, COMPREHENSIVE Comments: PATIENT NOT FASTINGPERFORMED BY: cicayda Pxiirs3047 [facility] [id number] (38335) ALT (SGPT) 16 [iU]/L (Normal) Range: 0-32 [...] Glucose, Serum 101 mg/dL (Abnormal) Range: 65-99 09-Ruq-051129:23 CBC WITH MANUAL DIFF Comments: PATIENT NOT FASTINGPERFORMED BY: LabCoSaint Clare's Hospital at SussexXnwixw9220 [facility] [id number] Information: [id number] (74645) Immature Grans (Abs) 0.0 {x10E3/uL} (Normal) Range: [...] Range: 4.0-10.5 :52 Blood Glucose , Office (31673) Blood Glucose , Office 116 (Normal) 39-Qqs-956590:52 HgA1C , Office (35311) HgA1C , Office 6.2 % (Normal) Range: 4.6 - 7.1 :37 Rapid Flu (32117 x 2) Influenza A Ag negative (Normal) :27 HgA1C , Office (55857) HgA1C , Office 5.7 % (Normal) Range: 4.6 - 7.1 :27 Blood Glucose , Office (56974) Blood Glucose , Office 98 (Normal) :18 CREATININE CLEARANCE Comments: PATIENT NOT FASTINGPERFORMED BY: Labflatev[address] [id number] Information: [id number] (13105) 24 HOUR Creatinine Clearance 104 mL/min (Normal) Range: 88-128 Comments: The above range is based on 1.73 square meter average body surfacearea. Creatinine, Ur 24hr 1169.7 {mg/24_hr} (Normal) Range: 800.0-1800.0 Creatinine, Urine 55.7 mg/dL (Normal) Range: 15.0-278.0 eGFR If Africn Am 99 mL/min/1.73 (Normal) eGFR If NonAfricn Am 86 mL/min/1.73 (Normal) Creatinine, Serum 0.78 mg/dL (Normal) Range: 0.57-1.00 :43 LIPID PANEL (41858) Comments: PATIENT WAS FASTINGPERFORMED BY: LabCoAlexandra Ville 5370670 [facility] [id number] Information: [id number] LDL/HDL Ratio 3.0 {ratio_units} (Normal) Range: 0.0-3.2 LDL Cholesterol Calc 145 mg/dL (Abnormal) Range: 0-99 VLDL Cholesterol Jesús 61 mg/dL (Abnormal) Range: 5-40 HDL Cholesterol 48 mg/dL (Normal) Comments: According to ATP-III Guidelines, HDL-C >59 mg/dL is considered anegative risk factor for CHD. Triglycerides 307 mg/dL (Abnormal) Range: 0-149 Cholesterol, Total 254 mg/dL (Abnormal) Range: 100-199 :53 HgA1C , Office (97217) HgA1C , Office 6.8 % (Normal) Range: 4.6 - 7.1 54-Hsr-383592:53 Blood Glucose , Office (65371) Blood Glucose , Office 111 (Normal) 29-Imm-007335:03 Thin prep Pap Comments: Source.............Cervical;EndocervicalNo. of containers..01 CYTYC Thin Prep VialPATIENT NOT FASTINGPERFORMED BY: LabCo[address] [facility] Medicinerosemariepunxsutaw[facility] [place] [id number] Information: [id number] (12179) Note: PAPSMR (Normal) Comments: The Pap smear [...] is identified.V72.31 ; Routine gynecological examinationCyntyovany Nails Latrine Cleaner (ASCP) 86-Eqf-711249:06 HgA1C , Office (58664) HgA1C , Office 5.8 % (Normal) Range: 4.6 - 7.1 05-Jzf-838136:06 Blood Glucose , Office (33242) Blood Glucose , Office 100 (Normal) 86-Uhn-855652:19 BILAT SCRN DIGITAL & CAD Radiology Report See Note (Normal) Comments: Exam Number: [id number] MAMMOGRAM, BILATERAL SCREENING DIGITAL AND CAD HISTORYRoutine [...] mammograms werealso examined with computer-aided detection software ([employer], [employer] Reported By: CASEY WARD M.D. :27 HgA1C , Office (29716) HgA1C , Office 5.7 % (Normal) Range: [...] T PROT 7.6 g/dL (Normal) Range: 6.4-8.2 27-Edw-29490:11 ROUTINE UA BILIRUBIN URINE SeeNote (Normal) Comments: [...] 0.2 EU/dl (Normal) Range: 0.2 - 1.0 25-Wxk-014181:09 Pap Lb, Ct-Ng, Comments: Source.............Cervical;EndocervicalNo. of containers..01 CYTYC Thin Prep VialClinical Information: [id number] PERFORMED BY: =G Lab[address] [id number] HPV-hr . . (Normal) Chlamydia, Nuc. Acid Amp Negative (Normal) DIAGNOSIS: SPRCS (Normal) Comments: NEGATIVE FOR INTRAEPITHELIAL LESION AND MALIGNANCY.Satisfactory for evaluation. Endocervical and/or squamous metaplasticcells (endocervical component) are present.789.07 ; Abdominal pain, g eneralizedG Iveth Ugalde, Supervisory Latrine Cleaner (ASCP) Gonococcus, Nuc. Acid Amp Negative (Normal) [...] :08 Genital Culture, Routine Comments: PERFORMED BY: [employer]fer6370 [facility] [id number] Genital Culture, Routine Final report (Normal) Result 1 RGF (Normal) Comments: Routine genital gerard. :08 Vaginitis/Vaginosis, DNA Probe Comments: Clinical Information: SRC:VA PERFORMED BY: [employer] Jrllvs7244 [facility] [id number] Nathaniel species Negative (Normal) Gardnerella vaginalis Negative (Normal) Trichomonas vaginalis Negative (Normal) 1-Fah-146037:5 C-REACTIVE PROT 5.99 mg/L (Normal) Range: 0.0-6.0 0 Comments: Test performed using the Dimension C-Reactive ProteinExtended Range assay method. This assay meets the AHA/CDC 2003 recommendations fordetermining patients at high risk for cardiovasculardisease. Reference: High risk CRP >3.0 mg/L 4-Cjp-577598:50 CBCD,SMEAR DIFF BAND 4 % (Normal) Range: [...] 47-70 WBC 7.2 K/mm3 (Normal) Range: 4.4-11.0 9-Uzi-233590:50 COMP METABOLIC A/G 1.1 {RATIO} (Normal) Range: [...] T PROT 7.4 g/dL (Normal) Range: 6.4-8.2 6-Eze-367051:50 ESR SED RATE 11 mm/h (Normal) Range: 0-30 0-Vhd-865094:53 ACUTE ABDOMEN, INC CHEST (MT) Radiology Report See Note (Normal) Comments: Exam Number: [id number] ACUTE ABDOMEN INCLUDING CHEST HISTORYEpigastric pain since [...] methodology of Hgb A1C has changed to Gurabo BehringDimension RXL. No significant changes in patientresults [...] Thin prep Pap Comments: Source.............Cervical;EndocervicalLMP / Prev Treat...OMA=[id number]. of containers..01 CYTYC Thin Prep VialPATIENT NOT FASTINGClinical Information: ADD [id number] PERFORMED BY: [employer] (76234) [facility] [place] [address] [place] [id number] . . (Normal) DIAGNOSIS: SPRCS (Normal) Comments: [...] resulttherefore, no HPV testing was performed. . 91-Crv-62143:28 BILAT SCRN DIGITAL & CAD Radiology Report See Note (Normal) Comments: Exam Number: [id number] BILATERAL SCREENING DIGITAL MAMMOGRAM CLINICAL INFORMATIONScreening. Bilateral [...] mammogramswere also examined with computer- aided detection software([employer] Reported By: BALBIR GATICA M.D. Plan [...] V70.0 Planned Observations LIPOPROTEIN, BLD, BY NMR (73940)Indication: Hypercholesteremia On: :44 Request HEPATIC FUNCTION PANEL (96604)Indication: Hypercholesteremia On: :44 Request Homocysteine, Plasma (54986)Indication: MTHFR mutation On: :24 Request MICROALBUMIN: CREATININE RATIO (33452) AND (27071)Indication: Hypertension, benign On: 61-Ade-159894:01 Request URINALYSIS (08412)Indication: Hypertension, benign On: 80-Pqp-991148:01 Request D-Dimer (05632)Indication: Multiple pulmonary emboli On: 2-Zjq-584270:21 Request Rapid Strep Test, Office (87501)Indication: Acute pharyngitis On: 11-Wwt-710574:53 Request Homocysteine, Plasma (20829)Indication: Elevated serum homocysteine level On: 93-Pvw-710115:08 Request CBC W/AUTO DIFF WBC (78771)Indication: Multiple pulmonary emboli On: 17-Ljv-455964:45 Request Homocysteine, Plasma (73722)Indication: Multiple pulmonary emboli On: :24 Request Comments: please add to labs drawn pre coag MTHFR (63142)Indication: Multiple pulmonary emboli On: :24 Request Comments: please add to labs drawn pre coag TESTOSTERONE FREE (64318)Indication: Elevated testosterone level in female On: 22-Sep-20169:52 Request METABOLIC PANEL, COMPREHENSIVE (38626)Indication: Hypercholesteremia On: 3-Ewb-231558:14 Request LIPOPROTEIN, BLD, BY NMR (47322)Indication: Hypercholesteremia On: 5-Mjw-569428:14 Request Cortisol,Urinary Free 24- Hour Urine (84221)Indication: Diabetes mellitus type II, controlled, with no complications On: 26-May-20168:34 Request URINALYSIS (23891)Indication: UTI (urinary tract infection) On: 08-Qib-359244:04 Request Comments: recheck 10 days after ATB URINE DAVID CULTURE-IDENTIFICATN (84322)Indication: UTI (urinary tract infection) On: 34-Uoo-009154:03 Request Comments: recheck 10 days after ATB CBC with auto diff (53018)Indication: Diabetes mellitus type II, controlled, with no complications On: 93-Sod-036796:14 Request LIPID PANEL (27180)Indication: Hypercholesteremia On: 28-Axc-486236:14 Request METABOLIC PANEL, COMPREHENSIVE (33738)Indication: Diabetes mellitus type II, controlled, with no complications On: 63-Bkt-527106:14 Request MICROALBUMIN: CREATININE RATIO (48960) AND (07540)Indication: Diabetes mellitus type II, controlled, with no complications On: 78-Bij-688766:14 Request Hemoglobin Glyclated (HGB A1C) (07433)Indication: Diabetes mellitus type II, controlled, with no complications On: 69-Fgq-269007:14 Request METABOLIC PANEL, COMPREHENSIVE (43369)Indication: Diabetes mellitus type II, controlled, with no complications On: 11-Thr-105438:20 Request LIPID PANEL (03495)Indication: Diabetes mellitus type II, controlled, with no complications On: :20 Request CBC W/AUTO DIFF WBC (93842)Indication: Diabetes mellitus type II, controlled, with no complications On: :20 Request MICROALBUMIN: CREATININE RATIO (14344) AND (43039)Indication: Diabetes mellitus type II, controlled, with no complications On: :59 Request METABOLIC PANEL, COMPREHENSIVE (65800)Indication: Diabetes mellitus type II, controlled, with no complications On: :59 Request LIPID PANEL (13489)Indication: Diabetes mellitus type II, controlled, with no complications On: :59 Request CBC WITH MANUAL DIFF (50281)Indication: Diabetes mellitus type II, controlled, with no complications On: :59 Request MICROALBUMIN: CREATININE RATIO (29969) AND (27364)Indication: Diabetes mellitus type 2, uncontrolled, without complications On: 25-Mdi-433074:10 Request PT (Prothrobim Time) (12198)Indication: Pre-operative examination On: 38-Hwh-190500:13 Request PTT (Activated Partial Thromboplastin Time) (21554)Indication: Pre-operative examination On: 62-Wnu-547230:13 Request CBC with manual diff (37330)Indication: Pre-operative examination On: 19-Cfh-756523:13 Request Metabolic Panel, Basic (49884)Indication: Pre-operative examination On: 75-Dtk-779943:11 Request Lipid Panel (66994)Indication: Hypertension, benign On: :31 Request TSH (07109)Indication: Hypertension, benign On: : Request URINALYSIS, W/ MICRO (59712)Indication: Hypertension, benign On: :31 Request MICROALBUMIN: CREATININE RATIO (01905) AND (73126)Indication: Hypertension, benign On: : Request METABOLIC PANEL, COMPREHENSIVE (87458)Indication: Hypertension, benign On: : Request LIPOPROTEIN, BLD, BY NMR (70366)Indication: Hypertension, benign On: : Request LIPID PANEL (95631)Indication: Hypertension, benign On: : Request CBC WITH MANUAL DIFF (82086)Indication: Hypertension, benign On: Request thin prep (36176) (std testing)Indication: Abdominal pain, acute, generalized On: : Request NEISSERIA (61312) (THIN PREP OBTAINED)Indication: Abdominal pain, acute, generalized On: Request CHLAMYDIA (74725) (thin prep obtained)Indication: Abdominal pain, acute, generalized On: : Request INFCT ANTGN TRICH VAGIN DIRECT PRB (89375)Indication: Abdominal pain, acute, generalized On: Request GARDNERELLA VAG, NUCLEIC ACID DIR PROBE (24778)Indication: Abdominal pain, acute, generalized On: Request NATHANIEL, NUCLEIC ACID DIRECT PROBE (96722)Indication: Abdominal pain, acute, generalized On: Request DAVID CULTURE-OTHER (28250)Indication: Abdominal pain, acute, generalized On: :27 Request CBC (Auto) ([id number])Indication: Abdominal pain, acute, generalized On: : Request Metabolic Panel, Comprehensive ([id number])Indication: Abdominal pain, acute, generalized On: :26 Request Urinalysis, Office ([id number])Indication: Abdominal pain, acute, generalized On: 52-Vuz-085302:44 Request C-REACTIVE PROTEIN ([id number])Indication: Epigastric pain On: :24 Request SED RATE ERYTHROCYTE ([id number])Indication: Epigastric pain On: :24 Request METABOLIC PANEL, COMPREHENSIVE ([id number])Indication: Epigastric pain On: :24 Request CBC WITH MANUAL DIFF ([id number])Indication: Epigastric pain On: :23 Request Hemoglobin Glyclated (HGB A1C) ([id number])Indication: Hypoglycemia On: 6-Ixy-332401:21 Request Lipid Panel ([id number])Indication: Hypercholesteremia On: 7-Hqx-144347:21 Request Planned Encounters Medical; 3 Month FU - On: 26-Oct-2018 13:30 [facility] Jeannie LIANG, Alycia Jeannie LIANG, Alycia Planned Procedures TDAP VACCINE >7 IM ([id number])By: On: 18-Jul-2018 Intent Zeinab Reddy MD US DOPPLER CAROTID BILATERAL On: 18-Jul-2018 Intent ([id number])By: Zeinab Reddy MD DEXA SCAN AXIAL SKELETON ([id number])By: On: 18-Jul-2018 Intent Zeinab Reddy MD SCREENING DIGITAL TOMOSYNTHESIS OF On: 18-Jul-2018 Intent BREAST ([id number])By: Zeinab Reddy MD SCREENING DIGITAL TOMOSYNTHESIS OF On: 13-Jul-2017 Intent BREAST ([id number])By: Zeinab Reddy MD EKG ([id number])By: Zeinab Reddy MD On: 21-Nov-2016 Intent Ultrasound - PelvisBy: Barry GONZALEZ, On: 24-Oct-2016 Intent Zeinab Varma Comments: copy to Dr. [email or web address]. CT - Abdomen (IV Contrast Needed)By: On: 26-Aug-2016 Intent Zeinab Reddy MD Comments: attention adrenals. Flu Vaccine (Quadrivalent) [id number]: On: 04-Jul-2016 Intent Zeinab Reddy MD US DOPPLER CAROTID BILATERAL On: 26-May-2016 Intent ([id number])By: Zeinab Reddy MD DEXA SCAN AXIAL SKELETON ([id number])By: On: 26-May-2016 Intent Zeinab Reddy MD BILATERAL MAMMOGRAMS ([id number])By: On: 26-May-2016 Intent Zeinab Reddy MD Nuclear Stress Test/Stress On: 05-Aug-2014 Intent SPECT/TreadmillBy: Carlotta Dennis CNP, CNP, Alycia Carotid DopplerBy: Zeinab Reddy MD On: 06-Jun-2014 Intent M Comments: dizzy MRI - Brain (IV Contrast Needed)By: On: 06-Jun-2014 Intent Zeinab Reddy MD Holter Monitor 24 hrsBy: Barry GONZALEZ, On: 06-Jun-2014 Intent Zeinab Varma EKG ([id number])By: Zeinab Reddy MD On: 02-Jun-2014 Intent Comments: see scanned document of test done to see results reviewed today with patient MAMMOGRAM, SCREENING, BOTH BREASTS On: 21-Jan-2014 Intent ([id number])By: Zeinab Reddy MD Eprescribed prescriptions ([id number])By: On: 21-Jan-2014 Intent Zeinab Reddy MD Aerosol Treatment ([id number])By: Jacy On: 07-Nov-2013 Intent Tracy MURPHY Comments: after aerosol - more a/e less inspir noise but lots of exp noise Spirometry ([id number])By: Jacy MURPHY, On: 07-Nov-2013 Intent Tracy Comments: poor effort and difficult time diong with coughjing -- restriction shown Eprescribed prescriptions ([id number])By: On: 07-Nov-2013 Intent Tracy Louie DO Aerosol Treatment ([id number])By: Jeannie On: 24-Sep-2012 Intent Carlotta LIANG CNP, Mary E Eprescribed prescriptions ([id number])By: On: 12-Jun-2012 Intent Tania Ledbetter LPN IMMUNIZ ADMNIN, 1 VAC, SNGL/COMBO On: 12-Jun-2012 Intent ([id number])By: Tania Ledbetter LPN FLU VAC, SPLIT, >3 YEARS, INTRAMUSC On: 12-Jun-2012 Intent ([id number])By: Tania Ledbetter LPN ELECTROCARDIOGRAM, COMPLETE (ECG) On: 10-Apr-2012 Intent ([id number])By: Carlotta Dennis CNP, CNP, Mary E Spirometry ([id number])By: Dwight MURPHY, On: 10-Jan-2011 Intent Valarie A Comments: done km- good effort and curve- mod obst Solu -Medrol Injection, 125 mg On: 10-Jan-2011 Intent ([id number])By: Jessica Alba LPN Comments: 2ml given im rt hip lotobjk2 exp 1-14 Pulse Oximetry ([id number])By: Dwight MURPHY, On: 10-Jan-2011 Intent Valarie A Comments: 96% Aerosol Treatment ([id number])By: Dwight On: 10-Jan-2011 Intent Valarie MURPHY Comments: done with albuterol 0.83%pt tolerated well MAMMOGRAM, SCREENING, BOTH BREASTS On: 30-Nov-2010 Intent ([id number])By: Zeinab Reddy MD MAMMOGRAM, SCREENING, BOTH BREASTS On: 23-Jul-2009 Intent ([id number])By: Zeinab Reddy MD EKG ([id number])By: Zeinab Reddy MD On: 23-Jul-2009 Intent Radiology - Abdomen SeriesBy: Jacy On: 19-Dec-2008 Intent DO Tracy TD Injection , IM ([id number])By: On: 21-Jan-2008 Intent Zeinab Reddy MD MAMMOGRAM, SCREENING, BOTH BREASTS On: 21-Jan-2008 Intent ([id number])By: Zeinab Reddy MD Planned Medications INJECTION, METHYLPREDNISOLONE [...] for Tdap vaccination (Renamed from Need for doexoytmfc-aayeqgm-zmprfjxxc (Tdap) vaccine, adult/adolescent) [facility] [...] Patient has been compliant with instructions. Current ct End: 18-Jan-2015 22:33 dication use: no side [...] not using any method of contraception at [facility] End: 30-Nov-2010 15:39 [...] (Renamed from Hypercholesteremia (272.0)), Sleep disorder (780.50), [facility] V70.0 [facility] Payers Aliza bean guarantor
--- OUTSIDE RECORDS SUMMARY | 2018-10-10 11:22 | XMS RPT_ITS | Continuity of Care Document ---
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 [address] [id number] Prolactin 15.1 ng/mL (Normal) Range: 4.8-23.3 :24 PTT (Activated Partial Comments: PATIENT NOT FASTINGPERFORMED BY: [address] [id number] BY: [address] [id number] Thromboplastin Time) (72484) aPTT 26 {sec} (Normal) Range: 24-33 Comments: This test has not been validated for monitoring unfractionated heparintherapy. aPTT-based therapeutic ranges for unfractionated heparintherapy have not been established. For general guidelines onHeparin monitoring, refer to the [facility] Directory of Services. :26 Urinalysis, Office (00509) URINE UROBILINGN FANNY TIMED Normal mg/dL (Normal) UA - PROTEIN Negative mg/dL (Normal) UA - PH 6.0 (Normal) UA - BLOOD Hemolyzed Small (Normal) UA - SPECIFIC GRAVITY 1.030 (Abnormal) UA - KETONES Negative mg/dL (Normal) UA - BILIRUBIN Negative (Normal) UA - GLUCOSE Negative (Normal) :27 HgA1C , Office (87959) HgA1C , Office 5.9 % (Normal) Range: 4.6 - 7.1 :27 Blood Glucose , Office (05327) Blood Glucose , Office 109 (Normal) 5-Qmt-480337:03 IGP, Aptima HPV, Comments: Source.............Cervix;EndocervixNo. of containers..01 CYTYC Thin Prep VialPATIENT NOT FASTINGPERFORMED BY: =G [facility] Kryjvoualg515 [facility] [place] [id number] BY: WB LabCo rfx 16/18,[address] [place] [id number] HPV Aptima Negative (Normal) Comments: This test [...] evaluation. No endocervical component is identified.Z01.419Margarita Reagan Internal Communications Writer (ASCP) 42-Pxi-845091:54 HEPATIC FUNCTION PANEL Comments: PATIENT WAS FASTINGPERFORMED BY: [facility] Fcxfnsmpjt4422 [facility] [id number] BY: [facility] Viutcz6872 [facility] [id number] (74270) ALT (SGPT) 15 [iU]/L (Normal) Range: 0-32 AST (SGOT) 10 [iU]/L (Normal) Range: 0-40 Alkaline Phosphatase, S 87 [iU]/L (Normal) Range: 39-117 Bilirubin, Direct 0.20 mg/dL (Normal) Range: 0.00-0.40 Bilirubin, Total 0.9 mg/dL (Normal) Range: 0.0-1.2 Albumin, Serum 4.1 g/dL (Normal) Range: 3.5-5.5 Protein, Total, Serum 7.2 g/dL (Normal) Range: 6.0-8.5 :54 LIPOPROTEIN, BLD, BY NMR Comments: PATIENT WAS FASTINGPERFORMED BY: BN [facility] Mblxenncrv5817 [facility] [id number] BY: CB [facility] Izfllq1015 [facility] [id number] (83104) LP-IR Score 82 (Abnormal) Comments: INSULIN RESISTANCE MARKER <--Insulin Sensitive Insulin Resistant--> Percentile in Reference PopulationInsulin Resistance ScoreLP-IR Score Low 25th 50th 75th High <27 27 45 63 >63LP-IR Score is inaccurate if patient is non-fasting. .The LP-IR score is a laboratory developed i [facility] that has beenassociated with insulin resistance [...] were developed and their performance characteristicsdetermined by [employer]. These assays have not been cleared by [...] 2000 Very High > 2000 :54 CALCIFEDIOL (78882) Comments: PATIENT WAS FASTINGPERFORMED BY: Rudder [facility] [id number] BY: The [employer]70 [facility] [id number] Vitamin D, 25-Hydroxy 35.2 ng/mL (Normal) Range: 30.0-100.0 Comments: Vitamin D deficiency has been defined by the [place] [facility] and an Endocrine Society practice guideline as alevel of serum 25-OH vitamin D less than 20 ng/mL (1,2).The Endocrine Society went on to further define vitamin Dinsufficiency as a level between 21 and 29 ng/mL (2).1. IOM ([place] of Medicine). 2010. Dietary reference intakes for calcium and D. [place]: The National Academies Press.2. Ritika MF, Demetrio NC, Barbara PENNY, et al. Evaluation, treatment, and prevention of vitamin D deficiency: an Endocrine Society clinical practice guideline. JCEM. 2010; 96(7):1911-30. :54 TESTOSTERONE FREE (28720) Comments: PATIENT WAS FASTINGPERFORMED BY: Rudder [facility] [id number] BY: Nveloped [facility] [id number] Free Testosterone(Direct) 5.6 pg/mL (Abnormal) Range: 0.0-4.2 14-Yuz-802915:54 FSH AND LH (46685) Comments: PATIENT WAS FASTINGPERFORMED BY: [employer] [id number] BY: [facility]6370 [facility] [id number] FSH 25.4 m[iU]/mL (Normal) Comments: Follicular phase 3.5 - 12.5 Ovulation phase 4.7 - 21.5 Luteal phase 1.7 - 7.7 Postmenopausal 25.8 - 134.8 LH 40.2 m[iU]/mL (Normal) Comments: Follicular phase 2.4 - 12.6 Ovulation phase 14.0 - 95.6 Luteal phase 1.0 - 11.4 Postmenopausal 7.7 - 58.5 07-Oqu-341874:54 DHEA-S (DEHYDROEPIANDROSTERONE Comments: PATIENT WAS FASTINGPERFORMED BY: [facility] [id number] BY: [place] 7926870 [facility] [id number] SULFATE) (60981) DHEA-Sulfate 119.9 ug/dL (Normal) Range: 29.4-220.5 6-Gya-160576:03 Thin prep Pap Comments: Source.............Cervix;EndocervixNo. of containers..01 CYTYC Thin Prep VialPATIENT NOT FASTINGPERFORMED BY: =G [facility]Co[address] [id number] BY: [facility] (84474) (no STD rp [address] [id number] Information: [id number] testing) Age Gdln ACOG Testing 30-65 (Normal) 70-Rlh-98434:48 URINE DAVID CULTURE-IDENTIFICATN Comments: PATIENT NOT FASTINGPERFORMED BY: [address] [id number] Information: [id number] (89670) Result 1 MUG (Normal) Comments: Mixed urogenital flora2,000 Colonies/mL Urine Culture,Comprehensive Final report (Normal) 10-Yca-29657:05 Urinalysis, Office (39697) UA - LEUKOCYTE ESTERASE Negative (Normal) UA - NITRITE Negative (Normal) URINE UROBILINGN FANNY TIMED Normal mg/dL (Normal) UA - PROTEIN Negative mg/dL (Normal) UA - PH 5 (Abnormal) UA - BLOOD Non Hemolyzed Trace (Normal) UA - SPECIFIC GRAVITY 1.030 (Abnormal) UA - KETONES Negative mg/dL (Normal) UA - BILIRUBIN Negative (Normal) UA - GLUCOSE Negative (Normal) 09-Nkf-273509:37 URINE DAVID CULTURE-IDENTIFICATN Comments: PATIENT NOT FASTINGPERFORMED BY: [employer] IQuum [facility] [id number] Information: [id number] (15398) Antimicrobial MIHEAD (Normal) Comments: S = Susceptible; [...] pneumoniae (Abnormal) Urine Final report Culture,Comprehensive (Abnormal) 58-Los-827526:17 MICROALBUMIN: CREATININE RATIO Comments: PATIENT WAS FASTINGPERFORMED BY: K[employer] WaterSaint Peter's University HospitalAciwkh0595 [facility] [id number] (04015) AND (07443) Microalb/Creat Ratio 6.1 {mg/g_creat} (Normal) Range: 0.0-30.0 Microalbumin, Urine 6.8 ug/mL (Normal) Range: 0.0-17.0 Comments: Effective January 25, 2016 the reference interval for Microalbumin, Urine will be changing to: Not Estab. Creatinine, Urine 111.5 mg/dL (Normal) Range: 15.0-278.0 Comments: Effective January 25, 2016 the reference interval for Creatinine, Urine will be changing to: Not Estab. 43-Hnm-675070:17 METABOLIC PANEL, COMPREHENSIVE Comments: PATIENT WAS FASTINGPERFORMED BY: [employer]70 [facility] [id number] (63389) ALT (SGPT) 20 [iU]/L (Normal) Range: 0-32 [...] Glucose, Serum 118 mg/dL (Abnormal) Range: 65-99 58-Yqy-935129:17 LIPID PANEL (14954) Comments: PATIENT WAS FASTINGPERFORMED BY: SOL ELIXIRS6370 [facility] [id number] LDL/HDL Ratio 3.4 {ratio_units} (Abnormal) Range: 0.0-3.2 [...] Cholesterol, Total 283 mg/dL (Abnormal) Range: 100-199 04-Fgx-399785:17 CBC with auto diff Comments: PATIENT WAS FASTINGPERFORMED BY: LabCoSaint Peter's University HospitalEgdbmq4871 [facility] [id number] Information: [id number] (06087) Immature Grans (Abs) 0.0 {x10E3/uL} (Normal) Range: [...] {x10E3/uL} (Normal) Range: 3.4-10.8 :27 Urinalysis, Office (89751) UA - LEUKOCYTE ESTERASE Trace (Normal) UA [...] GLUCOSE Negative (Normal) :21 HgA1C , Office (21975) HgA1C , Office 6.6 % (Normal) Range: 4.6 - 7.1 :23 HgA1C , Office (25921) HgA1C , Office 5.7 % (Normal) Range: 4.6 - 7.1 :23 Blood Glucose , Office (82108) Blood Glucose , Office 101 (Normal) :42 [...] CHOL 199 mg/dL (Normal) Comments: <200 mg/dL Alkgxrbdy154-391 mg/dL Borderline>240 mg/dL High Risk 75-Jkm-838454:01 Renal function Panel Comments: PATIENT NOT FASTINGPERFORMED BY: [employer] Zxxtsn4848 [facility] [id number] Information: [id number] (23589) Albumin, Serum 4.5 g/dL (Normal) Range: 3.5-5.5 [...] Glucose, Serum 105 mg/dL (Abnormal) Range: 65-99 62-Mew-214856:01 MAGNESIUM (34642) Comments: PATIENT NOT FASTINGPERFORMED BY: [employer] Fhfbpn8571 [facility] [id number] Magnesium, Serum 1.8 mg/dL (Normal) Range: 1.6-2.6 78-Sqo-766759:54 C-Reactive Protein (56772) Comments: PATIENT NOT FASTINGPERFORMED BY: [facility]6370 [facility] [id number] C-Reactive Protein, Quant 2.5 mg/L (Normal) Range: 0.0-4.9 :54 Sed Rate Erythrocyte (56606) Comments: PATIENT NOT FASTINGPERFORMED BY: [facility]6370 [facility] [id number] Sedimentation Rate-Westergren 4 mm/h (Normal) Range: 0-40 :54 T4, FREE (THYROXINE) (73477) Comments: PATIENT NOT FASTINGPERFORMED BY: [place] 7926870 [facility] [id number] T4,Free(Direct) 1.32 ng/dL (Normal) Range: 0.82-1.77 :54 TSH (54396) Comments: PATIENT NOT FASTINGPERFORMED BY: [place] 7926870 [facility] [id number] Information: [id number] TSH 1.770 {uIU/mL} (Normal) Range: 0.450-4.500 :39 HgA1C , Office (84808) HgA1C , Office 5.8 % (Normal) Range: 4.6 - 7.1 :39 Blood Glucose , Office (83910) Blood Glucose , Office 96 (Normal) :23 LIPID PANEL (15575) Comments: PATIENT WAS FASTINGPERFORMED BY: [facility]6370 [facility] [id number] Information: [id number] LDL/HDL Ratio 2.6 {ratio_units} (Normal) Range: 0.0-3.2 LDL Cholesterol Calc 99 mg/dL (Normal) Range: 0-99 VLDL Cholesterol Jesús 41 mg/dL (Abnormal) Range: 5-40 HDL Cholesterol 38 mg/dL (Abnormal) Comments: According to ATP-III Guidelines, HDL-C >59 mg/dL is considered anegative risk factor for CHD. Triglycerides 204 mg/dL (Abnormal) Range: 0-149 Cholesterol, Total 178 mg/dL (Normal) Range: 100-199 :23 HEPATIC FUNCTION PANEL (39258) Comments: PATIENT WAS FASTINGPERFORMED BY: OopsLabNor-Lea General HospitalWlzbez5391 [facility] [id number] ALT (SGPT) 23 [iU]/L (Normal) Range: 0-32 AST (SGOT) 19 [iU]/L (Normal) Range: 0-40 Alkaline Phosphatase, S 84 [iU]/L (Normal) Range: 39-117 Bilirubin, Direct 0.23 mg/dL (Normal) Range: 0.00-0.40 Bilirubin, Total 1.0 mg/dL (Normal) Range: 0.0-1.2 Albumin, Serum 4.4 g/dL (Normal) Range: 3.5-5.5 Protein, Total, Serum 7.2 g/dL (Normal) Range: 6.0-8.5 :42 MICROALBUMIN: CREATININE RATIO Comments: PATIENT WAS FASTINGPERFORMED BY: [facility] Kcgyqm9954 [facility] [id number] (24360) AND (80279) Creatinine, Urine 152.1 mg/dL (Normal) Range: 15.0-278.0 Microalb/Creat Ratio 23.3 {mg/g_creat} (Normal) Range: 0.0-30.0 Microalbumin, Urine 35.5 ug/mL (Abnormal) Range: 0.0-17.0 :42 METABOLIC PANEL, COMPREHENSIVE Comments: PATIENT WAS FASTINGPERFORMED BY: OopsLabSaint Peter's University HospitalTrvrpk0638 [facility] [id number] (11553) ALT (SGPT) 18 [iU]/L (Normal) Range: 0-32 [...] mg/dL (Abnormal) Range: 65-99 :42 LIPID PANEL (33244) Comments: PATIENT WAS FASTINGPERFORMED BY: [employer]70 [facility] [id number] LDL/HDL Ratio 3.5 {ratio_units} (Abnormal) Range: 0.0-3.2 [...] MANUAL DIFF Comments: PATIENT WAS FASTINGPERFORMED BY: Kulara WaterSaint Peter's University HospitalMjnzzr4309 [facility] [id number] Information: [id number] (73836) Immature Grans (Abs) 0.0 {x10E3/uL} (Normal) Range: [...] (Normal) Range: 3.4-10.8 :35 HgA1C , Office (54468) HgA1C , Office 6.4 % (Normal) Range: 4.6 - 7.1 3-Owg-512765:34 Blood Glucose , Office (42583) Blood Glucose , Office 124 (Normal) 54-Dvj-929759:21 Rapid Flu (05377 x 2) Influenza A Ag negative (Normal) 30-Fws-421758:23 MICROALBUMIN: CREATININE RATIO Comments: PATIENT NOT FASTINGPERFORMED BY: [facility] Bqsglk7216 [facility] [id number] (01100) AND (84465) Microalb/Creat Ratio 3.5 {mg/g_creat} (Normal) Range: 0.0-30.0 Microalbumin, Urine 5.6 ug/mL (Normal) Range: 0.0-17.0 Creatinine, Urine 158.0 mg/dL (Normal) Range: 15.0-278.0 91-Mji-279923:23 METABOLIC PANEL, COMPREHENSIVE Comments: PATIENT NOT FASTINGPERFORMED BY: OopsLabNor-Lea General HospitalDjwwmd8359 [facility] [id number] (54968) ALT (SGPT) 16 [iU]/L (Normal) Range: 0-32 [...] Glucose, Serum 101 mg/dL (Abnormal) Range: 65-99 70-Scx-902407:23 CBC WITH MANUAL DIFF Comments: PATIENT NOT FASTINGPERFORMED BY: [facility]6370 [facility] [id number] Information: [id number] (33940) Immature Grans (Abs) 0.0 {x10E3/uL} (Normal) Range: [...] Range: 4.0-10.5 :52 Blood Glucose , Office (27685) Blood Glucose , Office 116 (Normal) :52 HgA1C , Office (21989) HgA1C , Office 6.2 % (Normal) Range: 4.6 - 7.1 :37 Rapid Flu (33219 x 2) Influenza A Ag negative (Normal) 52-Xrk-679354:27 HgA1C , Office (13574) HgA1C , Office 5.7 % (Normal) Range: 4.6 - 7.1 33-Kgp-883170:27 Blood Glucose , Office (54480) Blood Glucose , Office 98 (Normal) 75-Qfr-371344:18 CREATININE CLEARANCE Comments: PATIENT NOT FASTINGPERFORMED BY: [place] 7926870 [facility] [id number] Information: [id number] (65366) 24 HOUR Creatinine Clearance 104 mL/min (Normal) Range: 88-128 Comments: The above range is based on 1.73 square meter average body surfacearea. Creatinine, Ur 24hr 1169.7 {mg/24_hr} (Normal) Range: 800.0-1800.0 Creatinine, Urine 55.7 mg/dL (Normal) Range: 15.0-278.0 eGFR If Africn Am 99 mL/min/1.73 (Normal) eGFR If NonAfricn Am 86 mL/min/1.73 (Normal) Creatinine, Serum 0.78 mg/dL (Normal) Range: 0.57-1.00 60-Kwh-482561:43 LIPID PANEL (13929) Comments: PATIENT WAS FASTINGPERFORMED BY: [place] 7926870 [facility] [id number] Information: [id number] LDL/HDL Ratio 3.0 {ratio_units} (Normal) Range: 0.0-3.2 LDL Cholesterol Calc 145 mg/dL (Abnormal) Range: 0-99 VLDL Cholesterol Jesús 61 mg/dL (Abnormal) Range: 5-40 HDL Cholesterol 48 mg/dL (Normal) Comments: According to ATP-III Guidelines, HDL-C >59 mg/dL is considered anegative risk factor for CHD. Triglycerides 307 mg/dL (Abnormal) Range: 0-149 Cholesterol, Total 254 mg/dL (Abnormal) Range: 100-199 :53 HgA1C , Office (28794) HgA1C , Office 6.8 % (Normal) Range: 4.6 - 7.1 :53 Blood Glucose , Office (96944) Blood Glucose , Office 111 (Normal) :03 Thin prep Pap Comments: Source.............Cervical;EndocervicalNo. of containers..01 CYTYC Thin Prep VialPATIENT NOT FASTINGPERFORMED BY: [facility] [address] [facility] WNano [id number] Information: [id number] (61180) Note: PAPSMR (Normal) Comments: The Pap smear [...] is identified.V72.31 ; Routine gynecological examinationCyntyovany Nails Internal Communications Writer (ASCP) 11-Wbc-618399:06 HgA1C , Office (85489) HgA1C , Office 5.8 % (Normal) Range: 4.6 - 7.1 38-Ouj-388656:06 Blood Glucose , Office (93681) Blood Glucose , Office 100 (Normal) 13-Ihm-768977:19 BILAT SCRN DIGITAL & CAD Radiology Report See Note (Normal) Comments: Exam Number: [id number] MAMMOGRAM, BILATERAL SCREENING DIGITAL AND CAD HISTORYRoutine [...] mammograms werealso examined with computer-aided detection software ([employer], [employer] Reported By: CASEY WARD M.D. :27 HgA1C , Office (02022) HgA1C , Office 5.7 % (Normal) Range: [...] T PROT 7.6 g/dL (Normal) Range: 6.4-8.2 37-Gav-28425:11 ROUTINE UA BILIRUBIN URINE SeeNote (Normal) Comments: [...] 0.2 EU/dl (Normal) Range: 0.2 - 1.0 49-Deq-211303:09 Pap Lb, Ct-Ng, Comments: Source.............Cervical;EndocervicalNo. of containers..01 CYTYC Thin Prep VialClinical Information: [id number] PERFORMED BY: =[facility] [id number] HPV-hr . . (Normal) Chlamydia, Nuc. Acid Amp Negative (Normal) DIAGNOSIS: SPRCS (Normal) Comments: NEGATIVE FOR INTRAEPITHELIAL LESION AND MALIGNANCY.Satisfactory for evaluation. Endocervical and/or squamous metaplasticcells (endocervical component) are present.789.07 ; Abdominal pain, g eneralizedG Iveth Ugalde, Supervisory Internal Communications Writer (ASCP) Gonococcus, Nuc. Acid Amp Negative (Normal) [...] :08 Genital Culture, Routine Comments: PERFORMED BY: Service [facility]Critical [facility] hospital [id number] Genital Culture, Routine Final report (Normal) Result 1 RGF (Normal) Comments: Routine genital gerard. :08 Vaginitis/Vaginosis, DNA Probe Comments: Clinical Information: SRC:VA PERFORMED BY: SOL ELIXIRS6370 [facility] TuTandaCritical access hospital [id number] Nathaniel species Negative (Normal) Gardnerella vaginalis Negative (Normal) Trichomonas vaginalis Negative (Normal) 5-Hnt-722039:5 C-REACTIVE PROT 5.99 mg/L (Normal) Range: 0.0-6.0 0 Comments: Test performed using the Dimension C-Reactive ProteinExtended Range assay method. This assay meets the AHA/CDC 2003 recommendations fordetermining patients at high risk for cardiovasculardisease. Reference: High risk CRP >3.0 mg/L 5-Arq-139058:50 CBCD,SMEAR DIFF BAND 4 % (Normal) Range: [...] Report See Note (Normal) Comments: Exam Number: [id number] ACUTE ABDOMEN INCLUDING CHEST HISTORYEpigastric pain since [...] Thin prep Pap Comments: Source.............Cervical;EndocervicalLMP / Prev Treat...CYN=[id number]. of containers..01 CYTYC Thin Prep VialPATIENT NOT FASTINGClinical Information: ADD [id number] PERFORMED BY: WB [facility] (09479) [address] [place] [id number] . . (Normal) DIAGNOSIS: SPRCS (Normal) Comments: NEGATIVE FOR INTRAEPITHELIAL LESION AND MALIGNANCY.Satisfactory for evaluation. Endocervical and/or squamous metaplasticcells (endocervical component) are present.Khalif Reeves, Cytotechnolo gist (ASCP) Note: PAPSMR (Normal) Comments: The [...] resulttherefore, no HPV testing was performed. . 48-Zzt-44863:28 BILAT SCRN DIGITAL & CAD Radiology Report See Note (Normal) Comments: Exam Number: [id number] BILATERAL SCREENING DIGITAL MAMMOGRAM CLINICAL INFORMATIONScreening. Bilateral [...] mammogramswere also examined with computer- aided detection software([employer]Cybrata [employer], Inc[employer] Reported By: BALBIR GATICA M.D. Plan [...] V70.0 Planned Observations LIPOPROTEIN, BLD, BY NMR (04320)Indication: Hypercholesteremia On: 19-Yrw-822600:44 Request HEPATIC FUNCTION PANEL (03273)Indication: Hypercholesteremia On: 92-Kkm-946970:44 Request Homocysteine, Plasma (40727)Indication: MTHFR mutation On: 04-Vbl-820539:24 Request MICROALBUMIN: CREATININE RATIO (03073) AND (92191)Indication: Hypertension, benign On: 32-Loo-250156:01 Request URINALYSIS (15002)Indication: Hypertension, benign On: 08-Usk-313397:01 Request D-Dimer (94723)Indication: Multiple pulmonary emboli On: 4-Wym-807169:21 Request Rapid Strep Test, Office (58372)Indication: Acute pharyngitis On: 58-Gpp-961610:53 Request Homocysteine, Plasma (25407)Indication: Elevated serum homocysteine level On: 85-Ncm-151632:08 Request CBC W/AUTO DIFF WBC (83378)Indication: Multiple pulmonary emboli On: 89-Zrl-064933:45 Request Homocysteine, Plasma (91650)Indication: Multiple pulmonary emboli On: :24 Request Comments: please add to labs drawn pre coag MTHFR (91304)Indication: Multiple pulmonary emboli On: :24 Request Comments: please add to labs drawn pre coag TESTOSTERONE FREE (35221)Indication: Elevated testosterone level in female On: 22-Sep-20169:52 Request METABOLIC PANEL, COMPREHENSIVE (38099)Indication: Hypercholesteremia On: 0-Byz-123028:14 Request LIPOPROTEIN, BLD, BY NMR (78106)Indication: Hypercholesteremia On: 4-Hhf-759419:14 Request Cortisol,Urinary Free 24- Hour Urine (17614)Indication: Diabetes mellitus type II, controlled, with no complications On: 26-May-20168:34 Request URINALYSIS (33943)Indication: UTI (urinary tract infection) On: 24-Hyp-978644:04 Request Comments: recheck 10 days after ATB URINE DAVID CULTURE-IDENTIFICATN (63677)Indication: UTI (urinary tract infection) On: 08-Pfo-152264:03 Request Comments: recheck 10 days after ATB CBC with auto diff (66769)Indication: Diabetes mellitus type II, controlled, with no complications On: 62-Anj-245932:14 Request LIPID PANEL (98348)Indication: Hypercholesteremia On: 00-Qrn-766406:14 Request METABOLIC PANEL, COMPREHENSIVE (71787)Indication: Diabetes mellitus type II, controlled, with no complications On: 16-Sgo-708069:14 Request MICROALBUMIN: CREATININE RATIO (11600) AND (74002)Indication: Diabetes mellitus type II, controlled, with no complications On: 44-Mkm-181480:14 Request Hemoglobin Glyclated (HGB A1C) (17046)Indication: Diabetes mellitus type II, controlled, with no complications On: 93-Lwe-558126:14 Request METABOLIC PANEL, COMPREHENSIVE (00527)Indication: Diabetes mellitus type II, controlled, with no complications On: 26-Wli-980875:20 Request LIPID PANEL (42513)Indication: Diabetes mellitus type II, controlled, with no complications On: : Request CBC W/AUTO DIFF WBC (83749)Indication: Diabetes mellitus type II, controlled, with no complications On: :20 Request MICROALBUMIN: CREATININE RATIO (04777) AND (92738)Indication: Diabetes mellitus type II, controlled, with no complications On: Request METABOLIC PANEL, COMPREHENSIVE (66833)Indication: Diabetes mellitus type II, controlled, with no complications On: Request LIPID PANEL (37181)Indication: Diabetes mellitus type II, controlled, with no complications On: Request CBC WITH MANUAL DIFF (67482)Indication: Diabetes mellitus type II, controlled, with no complications On: :59 Request MICROALBUMIN: CREATININE RATIO (52260) AND (08630)Indication: Diabetes mellitus type 2, uncontrolled, without complications On: :10 Request PT (Prothrobim Time) (01629)Indication: Pre-operative examination On: :13 Request PTT (Activated Partial Thromboplastin Time) (71073)Indication: Pre-operative examination On: : Request CBC with manual diff (93523)Indication: Pre-operative examination On: 19-Yld-044961:13 Request Metabolic Panel, Basic (68610)Indication: Pre-operative examination On: 90-Xkd-281867:11 Request Lipid Panel (19752)Indication: Hypertension, benign On: : Request TSH (70968)Indication: Hypertension, benign On: : Request URINALYSIS, W/ MICRO (84069)Indication: Hypertension, benign On: : Request MICROALBUMIN: CREATININE RATIO (75426) AND (13058)Indication: Hypertension, benign On: : Request METABOLIC PANEL, COMPREHENSIVE (50270)Indication: Hypertension, benign On: : Request LIPOPROTEIN, BLD, BY NMR (74780)Indication: Hypertension, benign On: Request LIPID PANEL ([id number])Indication: Hypertension, benign On: :31 Request CBC WITH MANUAL DIFF ([id number])Indication: Hypertension, benign On: :31 Request thin prep ([id number]) (std testing)Indication: Abdominal pain, acute, generalized On: : Request NEISSERIA ([id number]) (THIN PREP OBTAINED)Indication: Abdominal pain, acute, generalized On: : Request CHLAMYDIA ([id number]) (thin prep obtained)Indication: Abdominal pain, acute, generalized On: : Request INFCT ANTGN TRICH VAGIN DIRECT PRB ([id number])Indication: Abdominal pain, acute, generalized On: Request GARDNERELLA VAG, NUCLEIC ACID DIR PROBE ([id number])Indication: Abdominal pain, acute, generalized On: : Request NATHANIEL, NUCLEIC ACID DIRECT PROBE ([id number])Indication: Abdominal pain, acute, generalized On: Request DAVID CULTURE-OTHER ([id number])Indication: Abdominal pain, acute, generalized On: :27 Request CBC (Auto) ([id number])Indication: Abdominal pain, acute, generalized On: 62-Plp-916067:26 Request Metabolic Panel, Comprehensive ([id number])Indication: Abdominal pain, acute, generalized On: 19-Eob-649998:26 Request Urinalysis, Office ([id number])Indication: Abdominal pain, acute, generalized On: 49-Lzo-327389:44 Request C-REACTIVE PROTEIN ([id number])Indication: Epigastric pain On: 1-Rou-164727:24 Request SED RATE ERYTHROCYTE ([id number])Indication: Epigastric pain On: 3-Uck-008474:24 Request METABOLIC PANEL, COMPREHENSIVE ([id number])Indication: Epigastric pain On: 1-Vew-262056:24 Request CBC WITH MANUAL DIFF ([id number])Indication: Epigastric pain On: 4-Zpb-545382:23 Request Hemoglobin Glyclated (HGB A1C) ([id number])Indication: Hypoglycemia On: 3-Ouu-972644:21 Request Lipid Panel ([id number])Indication: Hypercholesteremia On: 2-Kex-533949:21 Request Planned Encounters Medical; 3 Month FU - On: 26-Oct-2018 13:30 [facility] [place] [employer]IST, Alycia Jeannie LIANG, Alycia Planned Procedures TDAP VACCINE >7 IM ([id number])By: On: 18-Jul-2018 Intent Zeinab Reddy MD US DOPPLER CAROTID BILATERAL On: 18-Jul-2018 Intent ([id number])By: Zeinab Reddy MD DEXA SCAN AXIAL SKELETON ([id number])By: On: 18-Jul-2018 Intent Zeinab Reddy MD SCREENING DIGITAL TOMOSYNTHESIS OF On: 18-Jul-2018 Intent BREAST ([id number])By: Zeinab Reddy MD SCREENING DIGITAL TOMOSYNTHESIS OF On: 13-Jul-2017 Intent BREAST ([id number])By: Zeinab Reddy MD EKG ([id number])By: Zeinab Reddy MD On: 21-Nov-2016 Intent Ultrasound - PelvisBy: Barry GONZALEZ, On: 24-Oct-2016 Intent Zeinab Varma Comments: copy to Dr. mcdaniel. CT - Abdomen (IV Contrast Needed)By: On: 26-Aug-2016 Intent Zeinab Reddy MD Comments: attention adrenals. Flu Vaccine (Quadrivalent) [id number]: On: 04-Jul-2016 Intent Zeinab Reddy MD US DOPPLER CAROTID BILATERAL On: 26-May-2016 Intent ([id number])By: Zeinab Reddy MD DEXA SCAN AXIAL SKELETON ([id number])By: On: 26-May-2016 Intent Zeinab Reddy MD BILATERAL MAMMOGRAMS ([id number])By: On: 26-May-2016 Intent Zeinab Reddy MD Nuclear Stress Test/Stress On: 05-Aug-2014 Intent SPECT/TreadmillBy: Carlotta Dennis CNP, CNP, Mary E Carotid DopplerBy: Zeinab Reddy MD On: 06-Jun-2014 Intent M Comments: dizzy MRI - Brain (IV Contrast Needed)By: On: 06-Jun-2014 Intent Zeinab Reddy MD Holter Monitor 24 hrsBy: Barry GONZALEZ, On: 06-Jun-2014 Intent Zeinab Varma EKG ([id number])By: Zeinab Reddy MD On: 02-Jun-2014 Intent Comments: see scanned document of test done to see results reviewed today with patient MAMMOGRAM, SCREENING, BOTH BREASTS On: 21-Jan-2014 Intent ([id number])By: Zeinab Reddy MD Eprescribed prescriptions ([id number])By: On: 21-Jan-2014 Intent Zeinab Reddy MD Aerosol Treatment ([id number])By: Jacy On: 07-Nov-2013 Intent Tracy MURPHY Comments: after aerosol - more a/e less inspir noise but lots of exp noise Spirometry ([id number])By: Jacy MURPHY, On: 07-Nov-2013 Intent Tracy Comments: poor effort and difficult time diong with coughjing -- restriction shown Eprescribed prescriptions ([id number])By: On: 07-Nov-2013 Intent Tracy Louie DO Aerosol Treatment ([id number])By: Jeannie On: 24-Sep-2012 Intent [employer]IST, Alycia Jeannie LIANG, Carlotta Dobson Eprescribed prescriptions ([id number])By: On: 12-Jun-2012 Intent Tania Ledbetter LPN IMMUNIZ ADMNIN, 1 VAC, SNGL/COMBO On: 12-Jun-2012 Intent ([id number])By: Tania Ledbetter LPN FLU VAC, SPLIT, >3 YEARS, INTRAMUSC On: 12-Jun-2012 Intent ([id number])By: Tania Ledbetter LPN ELECTROCARDIOGRAM, COMPLETE (ECG) On: 10-Apr-2012 Intent ([id number])By: Jeannie LIANG, AlyciaBronson Dennis CNP, Carlotta Dobson Spirometry ([id number])By: Dwight MURPHY, On: 10-Jan-2011 Intent Valarie A Comments: done km- good effort and curve- mod obst Solu -Medrol Injection, 125 mg On: 10-Jan-2011 Intent ([id number])By: Jessica Alba LPN Comments: 2ml given im rt hip lotobjk2 exp 1-14 Pulse Oximetry ([id number])By: Dwight MURPHY, On: 10-Jan-2011 Intent Valarie A Comments: 96% Aerosol Treatment ([id number])By: Dwight On: 10-Jan-2011 Intent Valarie MURPHY Comments: done with albuterol 0.83%pt tolerated well MAMMOGRAM, SCREENING, BOTH BREASTS On: 30-Nov-2010 Intent ([id number])By: Zeinab Reddy MD MAMMOGRAM, SCREENING, BOTH BREASTS On: 23-Jul-2009 Intent ([id number])By: Zeinab Reddy MD EKG ([id number])By: Zeinab Reddy MD On: 23-Jul-2009 Intent Radiology - Abdomen SeriesBy: Jacy On: 19-Dec-2008 Intent Tracy MURPHY TD Injection , IM ([id number])By: On: 21-Jan-2008 Intent Zeinab Reddy MD MAMMOGRAM, SCREENING, BOTH BREASTS On: 21-Jan-2008 Intent ([id number])By: Zeinab Reddy MD Planned Medications INJECTION, METHYLPREDNISOLONE [...] for Tdap vaccination (Renamed from Need for owniuleffv-zophgwf-uylssybsu (Tdap) vaccine, adult/adolescent) [facility] [...] regimen and considered effective by patient. Bryant geraldotulio sleeps 7 hours per night. Impact of [...] any method of contraception at [facility] End: 30-Nov-2010 15:39 s time. Patient does [...] for Well Women Exam: menopausal Encounter Diagnosis: [facility] V70.0 [facility] Office Visit On: [...] (Renamed from Hypercholesteremia (272.0)), Sleep disorder (780.50), [facility] V70.0 [facility] Payers Aliza Huff; a guarantor
--- OUTSIDE RECORDS SUMMARY | 2018-10-10 11:24 | XMS RPT_ITS | Continuity of Care Document ---
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 Negative (Normal) Comments: This test [...] evaluation. No endocervical component is identified.Z01.419Margarita Reagan Tool Chaser (ASCP) 36-Ktx-536569:54 HEPATIC FUNCTION PANEL Comments: PATIENT WAS FASTINGPERFORMED BY: [facility] Bncvbszrqq0139 [facility] [id number] BY: [facility] Iifcyz6771 [facility] [id number] (67170) ALT (SGPT) 15 [iU]/L (Normal) Range: 0-32 AST (SGOT) 10 [iU]/L (Normal) Range: 0-40 Alkaline Phosphatase, S 87 [iU]/L (Normal) Range: 39-117 Bilirubin, Direct 0.20 mg/dL (Normal) Range: 0.00-0.40 Bilirubin, Total 0.9 mg/dL (Normal) Range: 0.0-1.2 Albumin, Serum 4.1 g/dL (Normal) Range: 3.5-5.5 Protein, Total, Serum 7.2 g/dL (Normal) Range: 6.0-8.5 :54 LIPOPROTEIN, BLD, BY NMR Comments: PATIENT WAS FASTINGPERFORMED BY: BN [facility] Pivzmrmgey8539 [facility] [id number] BY: CB [facility] Ldzsyt2520 [facility] [id number] (20488) LP-IR Score 82 (Abnormal) Comments: INSULIN RESISTANCE MARKER <--Insulin Sensitive Insulin Resistant--> Percentile in Reference PopulationInsulin Resistance ScoreLP-IR Score Low 25th 50th 75th High <27 27 45 63 >63LP-IR Score is inaccurate if patient is non-fasting. .The LP-IR score is a laboratory developed i [facility] that has beenassociated with insulin resistance [...] were developed and their performance characteristicsdetermined by [facility]. These assays have not been cleared by [...] 2000 Very High > 2000 :54 CALCIFEDIOL (38395) Comments: PATIENT WAS FASTINGPERFORMED BY: BTR [facility] [id number] BY: [employer]70 [facility]Former[facility] [id number] Vitamin D, 25-Hydroxy 35.2 ng/mL (Normal) Range: 30.0-100.0 Comments: Vitamin D deficiency has been defined by the [place] [facility] and an Endocrine Society practice guideline as alevel of serum 25-OH vitamin D less than 20 ng/mL (1,2).The Endocrine Society went on to further define vitamin Dinsufficiency as a level between 21 and 29 ng/mL (2).1. IOM ([place] of Medicine). 2010. Dietary reference intakes for calcium and D. [place]: The National Academies Press.2. Ritika MF, Demetrio NC, Barbara PENNY, et al. Evaluation, treatment, and prevention of vitamin D deficiency: an Endocrine Society clinical practice guideline. JCEM. 2010; 96(7):1911-30. :54 TESTOSTERONE FREE (43620) Comments: PATIENT WAS FASTINGPERFORMED BY: BTR [facility] [id number] BY: [employer] [facility] [id number] Free Testosterone(Direct) 5.6 pg/mL (Abnormal) Range: 0.0-4.2 26-Xbt-434737:54 FSH AND LH (39230) Comments: PATIENT WAS FASTINGPERFORMED BY: [employer] [id number] BY: [facility]6370 [facility] [id number] FSH 25.4 m[iU]/mL (Normal) Comments: Follicular phase 3.5 - 12.5 Ovulation phase 4.7 - 21.5 Luteal phase 1.7 - 7.7 Postmenopausal 25.8 - 134.8 LH 40.2 m[iU]/mL (Normal) Comments: Follicular phase 2.4 - 12.6 Ovulation phase 14.0 - 95.6 Luteal phase 1.0 - 11.4 Postmenopausal 7.7 - 58.5 55-Lzn-502607:54 DHEA-S (DEHYDROEPIANDROSTERONE Comments: PATIENT WAS FASTINGPERFORMED BY: Tagstr[address] [id number] BY: [place] 1439770 [facility] [id number] SULFATE) (63069) DHEA-Sulfate 119.9 ug/dL (Normal) Range: 29.4-220.5 1-Axb-206668:03 Thin prep Pap Comments: Source.............Cervix;EndocervixNo. of containers..01 CYTYC Thin Prep VialPATIENT NOT FASTINGPERFORMED BY: =G [facility] [id number] BY: [facility] (80573) (no STD rp [address] [id number] Information: [id number] testing) Age Gdln ACOG Testing 30-65 (Normal) 44-Roz-28739:48 URINE DAVID CULTURE-IDENTIFICATN Comments: PATIENT NOT FASTINGPERFORMED BY: [address] [id number] Information: [id number] (32517) Result 1 MUG (Normal) Comments: Mixed urogenital flora2,000 Colonies/mL Urine Culture,Comprehensive Final report (Normal) 41-Zxv-90352:05 Urinalysis, Office (64604) UA - LEUKOCYTE ESTERASE Negative (Normal) UA - NITRITE Negative (Normal) URINE UROBILINGN FANNY TIMED Normal mg/dL (Normal) UA - PROTEIN Negative mg/dL (Normal) UA - PH 5 (Abnormal) UA - BLOOD Non Hemolyzed Trace (Normal) UA - SPECIFIC GRAVITY 1.030 (Abnormal) UA - KETONES Negative mg/dL (Normal) UA - BILIRUBIN Negative (Normal) UA - GLUCOSE Negative (Normal) 81-Mxa-632009:37 URINE DAVID CULTURE-IDENTIFICATN Comments: PATIENT NOT FASTINGPERFORMED BY: [employer] [facility] [id number] Information: [id number] (15945) Antimicrobial MIHEAD (Normal) Comments: S = Susceptible; [...] pneumoniae (Abnormal) Urine Final report Culture,Comprehensive (Abnormal) 19-Ryl-345274:17 MICROALBUMIN: CREATININE RATIO Comments: PATIENT WAS FASTINGPERFORMED BY: [facility]xetKindred Hospital at WayneLleyvg5752 [facility] [id number] (86012) AND (98274) Microalb/Creat Ratio 6.1 {mg/g_creat} (Normal) Range: 0.0-30.0 Microalbumin, Urine 6.8 ug/mL (Normal) Range: 0.0-17.0 Comments: Effective January 25, 2016 the reference interval for Microalbumin, Urine will be changing to: Not Estab. Creatinine, Urine 111.5 mg/dL (Normal) Range: 15.0-278.0 Comments: Effective January 25, 2016 the reference interval for Creatinine, Urine will be changing to: Not Estab. 32-Kmg-734019:17 METABOLIC PANEL, COMPREHENSIVE Comments: PATIENT WAS FASTINGPERFORMED BY: [employer]70 [facility] [id number] (01877) ALT (SGPT) 20 [iU]/L (Normal) Range: 0-32 [...] Glucose, Serum 118 mg/dL (Abnormal) Range: 65-99 38-Pss-486455:17 LIPID PANEL (51692) Comments: PATIENT WAS FASTINGPERFORMED BY: [employer]6370 [facility] [id number] LDL/HDL Ratio 3.4 {ratio_units} (Abnormal) Range: 0.0-3.2 [...] Cholesterol, Total 283 mg/dL (Abnormal) Range: 100-199 99-Wms-570550:17 CBC with auto diff Comments: PATIENT WAS FASTINGPERFORMED BY: LabCoKindred Hospital at WaynePqjkco1911 [facility] [id number] Information: [id number] (01871) Immature Grans (Abs) 0.0 {x10E3/uL} (Normal) Range: [...] {x10E3/uL} (Normal) Range: 3.4-10.8 :27 Urinalysis, Office (88706) UA - LEUKOCYTE ESTERASE Trace (Normal) UA [...] GLUCOSE Negative (Normal) :21 HgA1C , Office (38896) HgA1C , Office 6.6 % (Normal) Range: 4.6 - 7.1 :23 HgA1C , Office (81376) HgA1C , Office 5.7 % (Normal) Range: 4.6 - 7.1 :23 Blood Glucose , Office (65311) Blood Glucose , Office 101 (Normal) :42 [...] CHOL 199 mg/dL (Normal) Comments: <200 mg/dL Mmmahrdct905-891 mg/dL Borderline>240 mg/dL High Risk 92-Xum-488212:01 Renal function Panel Comments: PATIENT NOT FASTINGPERFORMED BY: [employer] Yppmlp7607 [facility] [id number] Information: [id number] (37497) Albumin, Serum 4.5 g/dL (Normal) Range: 3.5-5.5 [...] Glucose, Serum 105 mg/dL (Abnormal) Range: 65-99 91-Fnj-718842:01 MAGNESIUM (44638) Comments: PATIENT NOT FASTINGPERFORMED BY: [employer] Ubgyod6404 [facility] [id number] Magnesium, Serum 1.8 mg/dL (Normal) Range: 1.6-2.6 40-Toi-922930:54 C-Reactive Protein (11423) Comments: PATIENT NOT FASTINGPERFORMED BY: [facility]6370 [facility] [id number] C-Reactive Protein, Quant 2.5 mg/L (Normal) Range: 0.0-4.9 :54 Sed Rate Erythrocyte (72500) Comments: PATIENT NOT FASTINGPERFORMED BY: [facility]6370 [facility] [id number] Sedimentation Rate-Westergren 4 mm/h (Normal) Range: 0-40 :54 T4, FREE (THYROXINE) (07102) Comments: PATIENT NOT FASTINGPERFORMED BY: [place] 1439770 [facility] [id number] T4,Free(Direct) 1.32 ng/dL (Normal) Range: 0.82-1.77 :54 TSH (70774) Comments: PATIENT NOT FASTINGPERFORMED BY: [place] 1439770 [facility] [id number] Information: [id number] TSH 1.770 {uIU/mL} (Normal) Range: 0.450-4.500 :39 HgA1C , Office (66699) HgA1C , Office 5.8 % (Normal) Range: 4.6 - 7.1 :39 Blood Glucose , Office (57276) Blood Glucose , Office 96 (Normal) :23 LIPID PANEL (53888) Comments: PATIENT WAS FASTINGPERFORMED BY: [facility]6370 [facility] [id number] Information: [id number] LDL/HDL Ratio 2.6 {ratio_units} (Normal) Range: 0.0-3.2 LDL Cholesterol Calc 99 mg/dL (Normal) Range: 0-99 VLDL Cholesterol Jesús 41 mg/dL (Abnormal) Range: 5-40 HDL Cholesterol 38 mg/dL (Abnormal) Comments: According to ATP-III Guidelines, HDL-C >59 mg/dL is considered anegative risk factor for CHD. Triglycerides 204 mg/dL (Abnormal) Range: 0-149 Cholesterol, Total 178 mg/dL (Normal) Range: 100-199 :23 HEPATIC FUNCTION PANEL (08377) Comments: PATIENT WAS FASTINGPERFORMED BY: TagstrNew Mexico Rehabilitation CenterTpanfk1523 [facility] [id number] ALT (SGPT) 23 [iU]/L (Normal) Range: 0-32 AST (SGOT) 19 [iU]/L (Normal) Range: 0-40 Alkaline Phosphatase, S 84 [iU]/L (Normal) Range: 39-117 Bilirubin, Direct 0.23 mg/dL (Normal) Range: 0.00-0.40 Bilirubin, Total 1.0 mg/dL (Normal) Range: 0.0-1.2 Albumin, Serum 4.4 g/dL (Normal) Range: 3.5-5.5 Protein, Total, Serum 7.2 g/dL (Normal) Range: 6.0-8.5 :42 MICROALBUMIN: CREATININE RATIO Comments: PATIENT WAS FASTINGPERFORMED BY: Tagstr Avmctk5475 [facility] [id number] (01628) AND (02429) Creatinine, Urine 152.1 mg/dL (Normal) Range: 15.0-278.0 Microalb/Creat Ratio 23.3 {mg/g_creat} (Normal) Range: 0.0-30.0 Microalbumin, Urine 35.5 ug/mL (Abnormal) Range: 0.0-17.0 :42 METABOLIC PANEL, COMPREHENSIVE Comments: PATIENT WAS FASTINGPERFORMED BY: TagstrKindred Hospital at WayneOrrvuf9270 [facility] [id number] (45409) ALT (SGPT) 18 [iU]/L (Normal) Range: 0-32 [...] mg/dL (Abnormal) Range: 65-99 :42 LIPID PANEL (95444) Comments: PATIENT WAS FASTINGPERFORMED BY: [employer]70 [facility] [id number] LDL/HDL Ratio 3.5 {ratio_units} (Abnormal) Range: 0.0-3.2 [...] MANUAL DIFF Comments: PATIENT WAS FASTINGPERFORMED BY: BoxxetKindred Hospital at WaynePguhri2879 [facility] [id number] Information: [id number] (39095) Immature Grans (Abs) 0.0 {x10E3/uL} (Normal) Range: [...] (Normal) Range: 3.4-10.8 :35 HgA1C , Office (74356) HgA1C , Office 6.4 % (Normal) Range: 4.6 - 7.1 2-Gww-512695:34 Blood Glucose , Office (02959) Blood Glucose , Office 124 (Normal) 17-Qtq-043477:21 Rapid Flu (93727 x 2) Influenza A Ag negative (Normal) 80-Lyj-066064:23 MICROALBUMIN: CREATININE RATIO Comments: PATIENT NOT FASTINGPERFORMED BY: [facility] Nogctt3821 [facility] [id number] (09797) AND (54389) Microalb/Creat Ratio 3.5 {mg/g_creat} (Normal) Range: 0.0-30.0 Microalbumin, Urine 5.6 ug/mL (Normal) Range: 0.0-17.0 Creatinine, Urine 158.0 mg/dL (Normal) Range: 15.0-278.0 58-Xji-229719:23 METABOLIC PANEL, COMPREHENSIVE Comments: PATIENT NOT FASTINGPERFORMED BY: TagstrNew Mexico Rehabilitation CenterItnwny3493 [facility] [id number] (22415) ALT (SGPT) 16 [iU]/L (Normal) Range: 0-32 [...] Glucose, Serum 101 mg/dL (Abnormal) Range: 65-99 28-Gcp-687291:23 CBC WITH MANUAL DIFF Comments: PATIENT NOT FASTINGPERFORMED BY: [facility]6370 [facility] [id number] Information: [id number] (62449) Immature Grans (Abs) 0.0 {x10E3/uL} (Normal) Range: [...] Range: 4.0-10.5 :52 Blood Glucose , Office (93033) Blood Glucose , Office 116 (Normal) :52 HgA1C , Office (16205) HgA1C , Office 6.2 % (Normal) Range: 4.6 - 7.1 :37 Rapid Flu (45761 x 2) Influenza A Ag negative (Normal) 38-Rwv-317464:27 HgA1C , Office (03260) HgA1C , Office 5.7 % (Normal) Range: 4.6 - 7.1 05-Mdu-956598:27 Blood Glucose , Office (54757) Blood Glucose , Office 98 (Normal) 27-Twq-413744:18 CREATININE CLEARANCE Comments: PATIENT NOT FASTINGPERFORMED BY: [place] 1439770 [facility] [id number] Information: [id number] (43322) 24 HOUR Creatinine Clearance 104 mL/min (Normal) Range: 88-128 Comments: The above range is based on 1.73 square meter average body surfacearea. Creatinine, Ur 24hr 1169.7 {mg/24_hr} (Normal) Range: 800.0-1800.0 Creatinine, Urine 55.7 mg/dL (Normal) Range: 15.0-278.0 eGFR If Africn Am 99 mL/min/1.73 (Normal) eGFR If NonAfricn Am 86 mL/min/1.73 (Normal) Creatinine, Serum 0.78 mg/dL (Normal) Range: 0.57-1.00 08-Fbv-450378:43 LIPID PANEL (65017) Comments: PATIENT WAS FASTINGPERFORMED BY: [place] 1439770 [facility] [id number] Information: [id number] LDL/HDL Ratio 3.0 {ratio_units} (Normal) Range: 0.0-3.2 LDL Cholesterol Calc 145 mg/dL (Abnormal) Range: 0-99 VLDL Cholesterol Jesús 61 mg/dL (Abnormal) Range: 5-40 HDL Cholesterol 48 mg/dL (Normal) Comments: According to ATP-III Guidelines, HDL-C >59 mg/dL is considered anegative risk factor for CHD. Triglycerides 307 mg/dL (Abnormal) Range: 0-149 Cholesterol, Total 254 mg/dL (Abnormal) Range: 100-199 :53 HgA1C , Office (87360) HgA1C , Office 6.8 % (Normal) Range: 4.6 - 7.1 :53 Blood Glucose , Office (62850) Blood Glucose , Office 111 (Normal) :03 Thin prep Pap Comments: Source.............Cervical;EndocervicalNo. of containers..01 CYTYC Thin Prep VialPATIENT NOT FASTINGPERFORMED BY: [facility] [address] [facility] [place] [id number] Information: [id number] (47977) Note: PAPSMR (Normal) Comments: The Pap smear [...] is identified.V72.31 ; Routine gynecological examinationCyntyovany Nails Tool Chaser (ASCP) 74-Qty-389990:06 HgA1C , Office (97420) HgA1C , Office 5.8 % (Normal) Range: 4.6 - 7.1 81-Fdq-250878:06 Blood Glucose , Office (45870) Blood Glucose , Office 100 (Normal) 83-Prh-399998:19 BILAT SCRN DIGITAL & CAD Radiology Report See Note (Normal) Comments: Exam Number: [id number] MAMMOGRAM, BILATERAL SCREENING DIGITAL AND CAD HISTORYRoutine [...] mammograms werealso examined with computer-aided detection software ([employer] Reported By: CASEY WARD M.D. :27 HgA1C , Office (90177) HgA1C , Office 5.7 % (Normal) Range: [...] T PROT 7.6 g/dL (Normal) Range: 6.4-8.2 26-Tgh-63004:11 ROUTINE UA BILIRUBIN URINE SeeNote (Normal) Comments: [...] 0.2 EU/dl (Normal) Range: 0.2 - 1.0 61-Xzz-583144:09 Pap Lb, Ct-Ng, Comments: Source.............Cervical;EndocervicalNo. of containers..01 CYTYC Thin Prep VialClinical Information: [id number] PERFORMED BY: =[facility] [id number] HPV-hr . . (Normal) Chlamydia, Nuc. Acid Amp Negative (Normal) DIAGNOSIS: SPRCS (Normal) Comments: NEGATIVE FOR INTRAEPITHELIAL LESION AND MALIGNANCY.Satisfactory for evaluation. Endocervical and/or squamous metaplasticcells (endocervical component) are present.789.07 ; Abdominal pain, g eneralizedG Iveth Ugalde, Supervisory Tool Chaser (ASCP) Gonococcus, Nuc. Acid Amp Negative (Normal) [...] :08 Genital Culture, Routine Comments: PERFORMED BY: [facility] Blood TherapeuticsFormerly [facility] [id number] Genital Culture, Routine Final report (Normal) Result 1 RGF (Normal) Comments: Routine genital gerard. :08 Vaginitis/Vaginosis, DNA Probe Comments: Clinical Information: SRC:VA PERFORMED BY: [employer]6370 [facility] MagneticsFormerly [facility] [id number] Nathaniel species Negative (Normal) Gardnerella vaginalis Negative (Normal) Trichomonas vaginalis Negative (Normal) 4-Exi-468271:5 C-REACTIVE PROT 5.99 mg/L (Normal) Range: 0.0-6.0 0 Comments: Test performed using the Dimension C-Reactive ProteinExtended Range assay method. This assay meets the AHA/CDC 2003 recommendations fordetermining patients at high risk for cardiovasculardisease. Reference: High risk CRP >3.0 mg/L 4-Fyg-584568:50 CBCD,SMEAR DIFF BAND 4 % (Normal) Range: [...] Report See Note (Normal) Comments: Exam Number: [id number] ACUTE ABDOMEN INCLUDING CHEST HISTORYEpigastric pain since [...] Thin prep Pap Comments: Source.............Cervical;EndocervicalLMP / Prev Treat...TIM=340350Bp. of containers..01 CYTYC Thin Prep VialPATIENT NOT FASTINGClinical Information: ADD [id number] PERFORMED BY: WB [employer] (02352) [address] [place] [id number] . . (Normal) DIAGNOSIS: SPRCS (Normal) Comments: [...] resulttherefore, no HPV testing was performed. . 92-Qxr-16901:28 BILAT SCRN DIGITAL & CAD Radiology Report See Note (Normal) Comments: Exam Number: [id number] BILATERAL SCREENING DIGITAL MAMMOGRAM CLINICAL INFORMATIONScreening. Bilateral [...] mammogramswere also examined with computer- aided detection software([employer]ic[employer] Inc[employer] Reported By: BALBIR GATICA M.D. Plan [...] V70.0 Planned Observations LIPOPROTEIN, BLD, BY NMR (77733)Indication: Hypercholesteremia On: 71-Qav-428056:44 Request HEPATIC FUNCTION PANEL (39075)Indication: Hypercholesteremia On: 97-Jvo-072266:44 Request Homocysteine, Plasma (52780)Indication: MTHFR mutation On: 38-Qrf-629652:24 Request MICROALBUMIN: CREATININE RATIO (86060) AND (50985)Indication: Hypertension, benign On: 28-Fxt-713886:01 Request URINALYSIS (28597)Indication: Hypertension, benign On: 66-Url-752958:01 Request D-Dimer (41229)Indication: Multiple pulmonary emboli On: 4-Gbh-075330:21 Request Rapid Strep Test, Office (38949)Indication: Acute pharyngitis On: 89-Tse-795574:53 Request Homocysteine, Plasma (71268)Indication: Elevated serum homocysteine level On: 03-Vgo-777453:08 Request CBC W/AUTO DIFF WBC (16146)Indication: Multiple pulmonary emboli On: 57-Oxu-185542:45 Request Homocysteine, Plasma (14530)Indication: Multiple pulmonary emboli On: :24 Request Comments: please add to labs drawn pre coag MTHFR (26423)Indication: Multiple pulmonary emboli On: :24 Request Comments: please add to labs drawn pre coag TESTOSTERONE FREE (50935)Indication: Elevated testosterone level in female On: 22-Sep-20169:52 Request METABOLIC PANEL, COMPREHENSIVE (49372)Indication: Hypercholesteremia On: 1-Ubp-426755:14 Request LIPOPROTEIN, BLD, BY NMR (24175)Indication: Hypercholesteremia On: 6-Ijm-832021:14 Request Cortisol,Urinary Free 24- Hour Urine (40903)Indication: Diabetes mellitus type II, controlled, with no complications On: 26-May-20168:34 Request URINALYSIS (12458)Indication: UTI (urinary tract infection) On: 29-Rsj-088268:04 Request Comments: recheck 10 days after ATB URINE DAVID CULTURE-IDENTIFICATN (69131)Indication: UTI (urinary tract infection) On: 52-Txm-639719:03 Request Comments: recheck 10 days after ATB CBC with auto diff (09869)Indication: Diabetes mellitus type II, controlled, with no complications On: 25-Vbm-888864:14 Request LIPID PANEL (27781)Indication: Hypercholesteremia On: 77-Zwl-488403:14 Request METABOLIC PANEL, COMPREHENSIVE (93363)Indication: Diabetes mellitus type II, controlled, with no complications On: 77-Fkv-709311:14 Request MICROALBUMIN: CREATININE RATIO (41913) AND (30656)Indication: Diabetes mellitus type II, controlled, with no complications On: 35-Mur-250822:14 Request Hemoglobin Glyclated (HGB A1C) (37537)Indication: Diabetes mellitus type II, controlled, with no complications On: 80-Yqg-398284:14 Request METABOLIC PANEL, COMPREHENSIVE (16641)Indication: Diabetes mellitus type II, controlled, with no complications On: 67-Pay-178421:20 Request LIPID PANEL (98299)Indication: Diabetes mellitus type II, controlled, with no complications On: : Request CBC W/AUTO DIFF WBC (44608)Indication: Diabetes mellitus type II, controlled, with no complications On: :20 Request MICROALBUMIN: CREATININE RATIO (16852) AND (21597)Indication: Diabetes mellitus type II, controlled, with no complications On: Request METABOLIC PANEL, COMPREHENSIVE (30422)Indication: Diabetes mellitus type II, controlled, with no complications On: Request LIPID PANEL (25710)Indication: Diabetes mellitus type II, controlled, with no complications On: Request CBC WITH MANUAL DIFF (73335)Indication: Diabetes mellitus type II, controlled, with no complications On: :59 Request MICROALBUMIN: CREATININE RATIO (43081) AND (09942)Indication: Diabetes mellitus type 2, uncontrolled, without complications On: :10 Request PT (Prothrobim Time) (68130)Indication: Pre-operative examination On: :13 Request PTT (Activated Partial Thromboplastin Time) (44847)Indication: Pre-operative examination On: : Request CBC with manual diff (09802)Indication: Pre-operative examination On: 10-Bkr-435022:13 Request Metabolic Panel, Basic (95930)Indication: Pre-operative examination On: 58-Ysy-202549:11 Request Lipid Panel (07964)Indication: Hypertension, benign On: : Request TSH (33447)Indication: Hypertension, benign On: : Request URINALYSIS, W/ MICRO (68344)Indication: Hypertension, benign On: : Request MICROALBUMIN: CREATININE RATIO (32860) AND (48481)Indication: Hypertension, benign On: : Request METABOLIC PANEL, COMPREHENSIVE (09596)Indication: Hypertension, benign On: : Request LIPOPROTEIN, BLD, BY NMR (45640)Indication: Hypertension, benign On: Request LIPID PANEL (86779)Indication: Hypertension, benign On: :31 Request CBC WITH MANUAL DIFF (17022)Indication: Hypertension, benign On: :31 Request thin prep (53331) (std testing)Indication: Abdominal pain, acute, generalized On: : Request NEISSERIA (70938) (THIN PREP OBTAINED)Indication: Abdominal pain, acute, generalized On: : Request CHLAMYDIA (82856) (thin prep obtained)Indication: Abdominal pain, acute, generalized On: : Request INFCT ANTGN TRICH VAGIN DIRECT PRB (20238)Indication: Abdominal pain, acute, generalized On: Request GARDNERELLA VAG, NUCLEIC ACID DIR PROBE (39469)Indication: Abdominal pain, acute, generalized On: : Request NATHANIEL, NUCLEIC ACID DIRECT PROBE (11689)Indication: Abdominal pain, acute, generalized On: Request DAVID CULTURE-OTHER (40168)Indication: Abdominal pain, acute, generalized On: :27 Request CBC (Auto) ([id number])Indication: Abdominal pain, acute, generalized On: 52-Ndm-056825:26 Request Metabolic Panel, Comprehensive ([id number])Indication: Abdominal pain, acute, generalized On: 27-Dut-261549:26 Request Urinalysis, Office ([id number])Indication: Abdominal pain, acute, generalized On: 86-Bzr-176175:44 Request C-REACTIVE PROTEIN ([id number])Indication: Epigastric pain On: 8-Rxm-148184:24 Request SED RATE ERYTHROCYTE ([id number])Indication: Epigastric pain On: 1-Foh-324259:24 Request METABOLIC PANEL, COMPREHENSIVE ([id number])Indication: Epigastric pain On: 4-Qqt-323901:24 Request CBC WITH MANUAL DIFF ([id number])Indication: Epigastric pain On: 3-Dgw-534053:23 Request Hemoglobin Glyclated (HGB A1C) ([id number])Indication: Hypoglycemia On: 5-Arf-484721:21 Request Lipid Panel ([id number])Indication: Hypercholesteremia On: 8-Ujk-313617:21 Request Planned Encounters Medical; 3 Month FU - On: 26-Oct-2018 13:30 [facility] [place] [employer], Alycia Jeannie LIANG, Alycia Planned Procedures TDAP VACCINE >7 IM ([id number])By: On: 18-Jul-2018 Intent Zeinab Reddy MD US DOPPLER CAROTID BILATERAL On: 18-Jul-2018 Intent ([id number])By: Zeinab Reddy MD DEXA SCAN AXIAL SKELETON ([id number])By: On: 18-Jul-2018 Intent Zeinab Reddy MD SCREENING DIGITAL TOMOSYNTHESIS OF On: 18-Jul-2018 Intent BREAST ([id number])By: Zeinab Reddy MD SCREENING DIGITAL TOMOSYNTHESIS OF On: 13-Jul-2017 Intent BREAST ([id number])By: Zeinab Reddy MD EKG ([id number])By: Zeinab Reddy MD On: 21-Nov-2016 Intent Ultrasound - PelvisBy: Barry GONZALEZ, On: 24-Oct-2016 Intent Zeinab Varma Comments: copy to Dr. [email or web address]. CT - Abdomen (IV Contrast Needed)By: On: 26-Aug-2016 Intent Zeinab Reddy MD Comments: attention adrenals. Flu Vaccine (Quadrivalent) [id number]: On: 04-Jul-2016 Intent Zeinab Reddy MD US DOPPLER CAROTID BILATERAL On: 26-May-2016 Intent ([id number])By: Zeinab Reddy MD DEXA SCAN AXIAL SKELETON ([id number])By: On: 26-May-2016 Intent Zeinab Reddy MD BILATERAL MAMMOGRAMS ([id number])By: On: 26-May-2016 Intent Zeinab Reddy MD Nuclear Stress Test/Stress On: 05-Aug-2014 Intent SPECT/TreadmillBy: Carlotta Dennis CNP, CNP, Mary E Carotid DopplerBy: Zeinab Reddy MD On: 06-Jun-2014 Intent M Comments: dizzy MRI - Brain (IV Contrast Needed)By: On: 06-Jun-2014 Intent Zeinab Reddy MD Holter Monitor 24 hrsBy: Barry GONZALEZ, On: 06-Jun-2014 Intent Zeinab Varma EKG ([id number])By: Zeinab Reddy MD On: 02-Jun-2014 Intent Comments: see scanned document of test done to see results reviewed today with patient MAMMOGRAM, SCREENING, BOTH BREASTS On: 21-Jan-2014 Intent ([id number])By: Zeinab Reddy MD Eprescribed prescriptions ([id number])By: On: 21-Jan-2014 Intent Zeinab Reddy MD Aerosol Treatment ([id number])By: Jacy On: 07-Nov-2013 Intent Tracy MURPHY Comments: after aerosol - more a/e less inspir noise but lots of exp noise Spirometry ([id number])By: Jacy MURPHY, On: 07-Nov-2013 Intent Tracy Comments: poor effort and difficult time diong with coughjing -- restriction shown Eprescribed prescriptions ([id number])By: On: 07-Nov-2013 Intent Tracy Louie DO Aerosol Treatment ([id number])By: Jeannie On: 24-Sep-2012 Intent [employer], Alycia Jeannie LIANG, Carlotta Dobson Eprescribed prescriptions ([id number])By: On: 12-Jun-2012 Intent Tania Ledbetter LPN IMMUNIZ ADMNIN, 1 VAC, SNGL/COMBO On: 12-Jun-2012 Intent ([id number])By: Tania Ledbetter LPN FLU VAC, SPLIT, >3 YEARS, INTRAMUSC On: 12-Jun-2012 Intent ([id number])By: Tania Ledbetter LPN ELECTROCARDIOGRAM, COMPLETE (ECG) On: 10-Apr-2012 Intent ([id number])By: Jeannie LIANG, AlyciaBronson Dennis CNP, Carlotta Dobson Spirometry ([id number])By: Dwight MURPHY, On: 10-Jan-2011 Intent Valarie A Comments: done km- good effort and curve- mod obst Solu -Medrol Injection, 125 mg On: 10-Jan-2011 Intent ([id number])By: Jessica Alba LPN Comments: 2ml given im rt hip lotobjk2 exp 1-14 Pulse Oximetry ([id number])By: Dwight MURPHY, On: 10-Jan-2011 Intent Valarie A Comments: 96% Aerosol Treatment ([id number])By: Dwight On: 10-Jan-2011 Intent Valarie MURPHY Comments: done with albuterol 0.83%pt tolerated well MAMMOGRAM, SCREENING, BOTH BREASTS On: 30-Nov-2010 Intent ([id number])By: Zeinab Reddy MD MAMMOGRAM, SCREENING, BOTH BREASTS On: 23-Jul-2009 Intent ([id number])By: Zeinab Reddy MD EKG ([id number])By: Zeinab Reddy MD On: 23-Jul-2009 Intent Radiology - Abdomen SeriesBy: Jacy On: 19-Dec-2008 Intent Tracy MURPHY TD Injection , IM ([id number])By: On: 21-Jan-2008 Intent Zeinab Reddy MD MAMMOGRAM, SCREENING, BOTH BREASTS On: 21-Jan-2008 Intent ([id number])By: Zeinab Reddy MD Planned Medications INJECTION, METHYLPREDNISOLONE [...] for Tdap vaccination (Renamed from Need for zqggwrltpk-tgsaddu-ahidtlxmt (Tdap) vaccine, adult/adolescent) [facility] [...] (Renamed from Hypercholesteremia (272.0)), Sleep disorder (780.50), [facility] V70.0 [facility] Payers Aliza Huff; a guarantor
--- OUTSIDE RECORDS SUMMARY | 2018-10-10 11:25 | XMS RPT_ITS | Continuity of Care Document ---
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 mg/dL (Normal) Triglycerides 180 mg/dL (Abnormal) Range: 0-149 Cholesterol, Total 193 mg/dL (Normal) Range: 100-199 13-Bgn-919630:35 LIPOPROTEIN, BLD, BY NMR Comments: PATIENT WAS FASTINGPERFORMED BY: BN [facility] Gffcbyykmv7635 [facility] [id number] BY: CB [facility] Lriwxa6598 [address]ade[address] [place] [id number]; fu 1-29 db (56079) LP-IR Score 72 (Abnormal) Comments: INSULIN RESISTANCE MARKER <--Insulin Sensitive Insulin Resistant--> Percentile in Reference PopulationInsulin Resistance ScoreLP-IR Score Low 25th 50th 75th High <27 27 45 63 >63LP-IR Score is inaccurate if patient is non-fasting. .The LP-IR score is a laboratory developed i [facility] that has beenassociated with insulin resistance and [...] were developed and their performance characteristicsdetermined by [employer]. These assays have not been cleared by [...] 1600 - 2000 Very High > 2000 38-Des-779098:35 Homocysteine, Plasma Comments: PATIENT WAS FASTINGPERFORMED BY: lettrs[address] [id number] BY: lettrs [employer] [facility] [id number] (27995) Homocyst(e)ine, Plasma 11.3 umol/L (Normal) Range: 0.0-15.0 01-Hqf-381893:10 MICROALBUMIN: CREATININE RATIO Comments: PATIENT NOT FASTINGPERFORMED BY: GPMESS [facility] [id number] (82208) AND (68351) Microalb/Creat Ratio <8.6 {mg/g_creat} (Normal) Range: 0.0-30.0 Microalbumin, Urine <3.0 ug/mL (Normal) Creatinine, Urine 34.9 mg/dL (Normal) 12-Aik-004984:10 URINALYSIS (87809) Comments: PATIENT NOT FASTINGPERFORMED BY: WeddingLovely [employer]52 [facility] [id number] Microscopic Examination MICNIP (Normal) Comments: Microscopic not indicated and not performed. Nitrite, Urine Negative (Normal) Urobilinogen,Semi-Qn 0.2 mg/dL (Normal) Range: 0.2-1.0 Bilirubin Negative (Normal) Occult Blood Negative (Normal) Ketones Negative (Normal) Glucose 3+ (Abnormal) Protein Negative (Normal) WBC Esterase Negative (Normal) Appearance Clear (Normal) Urine-Color Yellow (Normal) pH 7.0 (Normal) Range: 5.0-7.5 Specific [place] 1.013 (Normal) Range: 1.005-1.030 11-Mqe-974032:10 Metabolic Panel, Comprehensive Comments: PATIENT NOT FASTINGPERFORMED BY: lettrsGreystone Park Psychiatric HospitalTdnloq1271 [facility] [id number] (30713) ALT (SGPT) 16 [iU]/L (Normal) Range: 0-32 [...] Glucose, Serum 111 mg/dL (Abnormal) Range: 65-99 69-Iso-473436:10 CBC WITH MANUAL DIFF Comments: PATIENT NOT FASTINGPERFORMED BY: lettrsGreystone Park Psychiatric HospitalGkdmxm1338 [facility] [id number] Information: DRAWN BY NURSE (20777) Immature Grans (Abs) 0.0 {x10E3/uL} (Normal) Range: [...] 3.77-5.28 WBC 8.1 {x10E3/uL} (Normal) Range: 3.4-10.8 83-Bci-751145:13 Homocysteine, Plasma Comments: PATIENT NOT FASTINGPERFORMED BY: LabMunising Memorial Hospital6370 [facility] [id number] Information: DRAWEN BY NURSE; rene 10-26 db per patient has not been taking the mtx (11115) Homocyst(e)ine, Plasma 16.5 umol/L (Abnormal) Range: 0.0-15.0 66-Hup-254526:45 HgA1C , Office (39787) HgA1C , Office 6.1 % (Normal) Range: 4.6 - 7.1 1-Jrx-693630:36 CBC-Complete Blood Cnt No Diff Comments: [facility] Bec[address] [place], [id number] MPV 9.9 fL (Normal) Range: 6.2-12.0 PLT [...] 4.2-5.4 WBC 7.5 K/mm3 (Normal) Range: 4.4-11.0 8-Lzc-667938:36 Thyroid Stim Hormone (TSH) Comments: [facility] [address] [place], [address] TSH 0.87 {uIU/mL} (Normal) Range: 0.358-3.74 5-Lij-647729:05 Basic Metabolic Profile (BMP) Comments: 'TROP' Serial specimen #1, #2, #3, or #4: [facility] Jylnsxjifi[address] [place], [id number] GAP 9 (Normal) Range: 5-15 CO2 24.0 [...] 126 mg/dLsuggests DIABETES MELLITUS per A.D.A. criteria. 8-Yqs-565120:05 CBC W/Diff, Automated Comments: [facility] [address]stbb[address] [place], [place], [id number] Absolute Lymph 2.08 {X10_3/ul} (Normal) Range: 0.83-4.51 [...] 4.2-5.4 WBC 10.1 K/mm3 (Normal) Range: 4.4-11.0 0-Epq-879433:05 Troponin-I Comments: 'TROP' Serial specimen #1, #2, #3, or #4: [facility] Byxrabydfa[address] [place], [address] TROPONIN-I < 0.02 ng/mL Comments: TROPONIN-I EXPECTED VALUES <0.05 NEGATIVE 0.06 - 0.59 AT RISK OF PR > OR = 0.60 SUGGEST PR (Normal) ENDOMETRIAL See Note (Normal) Comments: [facility] Cibblzjtpv[address] [place], [place], [address] :30 BX/CURETTINGS Comments: Patient: LYN HUFF : 1955 (61/F) Acct Num: [id number] Phys: Jessica Mcdaniel MD Unit Num: [id number] Loc: [facility] Specimen: [id number] Received: 12/07/16 - 1409 Spec Type: END [...] cassettes. Cassette 3 contains the polyp. / TANG:rodney 12/07/16 TC: 5 CP T: 48239 HEADER OPERATION: Dilatation and curettage PRE-OP DIAGNOSIS: Postmenopausal bleeding TISSUE SUBMITTED: Endometrial curettings and polyp MICROSCOPIC DESCRIPTION Slides are revie wed. MICROSCOPIC DIAGNOSIS Endometrial curettings and polyp: Polypoid fragments of endometrial tissue with simple and complex hyperplasia without atypia. Focal tubal metaplasia. Frag ments of benign ecto- and endocervical mucosa. SJ:rodney 12/08/16 Signed Jaswinder Art 12/09/16 <signature on file> 23-Nwf-732733:14 Bedside Glucose Comments: [facility] LaboratoryPoint of Bjmj[address] [place] [address] BEDSIDE GLU 116 mg/dL (Abnormal) Range: 70-110 Comments: No Action RequiredMANAGEMENT OF PATIENT CARE PER NURSING PROTOCOL 9-Xhd-266154:24 PT (Prothrobim Time) Comments: copy of al labs to Dr. mcdaniel; PATIENT NOT FASTINGPERFORMED BY: [employer]Lov[employer]52 [address] [facility] HospitalLocalCirclesUNC Health [id number] BY: lettrs[address] [id number] (30446) Prothrombin Time 10.2 {sec} (Normal) Range: 9.1-12.0 INR 1.0 (Normal) Range: 0.8-1.2 Comments: Reference interval is for non-anticoagulated patients. . Suggested INR therapeutic range for Vitamin K anta gonist therapy: Standard Dose (moderate intensity therapeutic range): 2.0 - 3.0 Higher intensity therapeutic range 2.5 - 3.5 4-Cru-596933:24 ESTRADIOL (20608) Comments: PATIENT NOT FASTINGPERFORMED BY: [facility] [id number] BY: lettrs[address] [id number] Estradiol 13.5 pg/mL (Normal) Comments: Adult Female: Follicular phase 12.5 - 166.0 Ovulation phase 85.8 - 498.0 Luteal phase 43.8 - 211.0 Postmenopausal <6.0 - 54.7 1st trimester 215.0 - & gt;4300.0 Girls (1-10 years) 6.0 - 27.0Roche ECLIA methodology 9-Dyz-303683:24 TESTOSTERONE FREE (62099) Comments: PATIENT NOT FASTINGPERFORMED BY: lettrs Food52 [facility] [id number] BY: LabCo[address] [id number] Free Testosterone(Direct) 3.8 pg/mL (Normal) Range: 0.0-4.2 9-Kgf-510023:24 CBC, Platelets & Auto Comments: PATIENT NOT FASTINGPERFORMED BY: LabCoGreystone Park Psychiatric HospitalDzacph6227 [place] RoadSolomon [place] [id number] BY: LabCo[address] [id number] Diff (45751) Immature Grans (Abs) 0.0 {x10E3/uL} (Normal) Range: [...] 3.77-5.28 WBC 8.2 {x10E3/uL} (Normal) Range: 3.4-10.8 3-Yoe-899116:24 PROLACTIN (11593) Comments: PATIENT NOT FASTINGPERFORMED BY: [facility]6370 [facility] [id number] BY: [address] [id number] Prolactin 15.1 ng/mL (Normal) Range: 4.8-23.3 :24 PTT (Activated Partial Comments: PATIENT NOT FASTINGPERFORMED BY: [place] 0739270 [facility] [id number] BY: [address] [id number] Thromboplastin Time) (26754) aPTT 26 {sec} (Normal) Range: 24-33 Comments: This test has not been validated for monitoring unfractionated heparintherapy. aPTT-based therapeutic ranges for unfractionated heparintherapy have not been established. For general guidelines onHeparin monitoring, refer to the [facility] Directory of Services. 4-Oxs-222924:26 Urinalysis, Office (61733) URINE UROBILINGN FANNY TIMED Normal mg/dL (Normal) UA - PROTEIN Negative mg/dL (Normal) UA - PH 6.0 (Normal) UA - BLOOD Hemolyzed Small (Normal) UA - SPECIFIC GRAVITY 1.030 (Abnormal) UA - KETONES Negative mg/dL (Normal) UA - BILIRUBIN Negative (Normal) UA - GLUCOSE Negative (Normal) :27 HgA1C , Office (63281) HgA1C , Office 5.9 % (Normal) Range: 4.6 - 7.1 :27 Blood Glucose , Office (42444) Blood Glucose , Office 109 (Normal) :03 IGP, Aptima HPV, Comments: Source.............Cervix;EndocervixNo. of containers..01 CYTYC Thin Prep VialPATIENT NOT FASTINGPERFORMED BY: =G Lab[address] [id number] BY: WB LabCo rfx 16/18,[address] [id number] HPV Aptima Negative (Normal) Comments: This test [...] evaluation. No endocervical component is identified.Z01.419Margarita Reagan Still Worker Helper (ASCP) :54 HEPATIC FUNCTION PANEL Comments: PATIENT WAS FASTINGPERFORMED BY: Clarient[address] [id number] BY: WeddingLovely Tywnxb7661 [facility] [id number] (91992) ALT (SGPT) 15 [iU]/L (Normal) Range: 0-32 AST (SGOT) 10 [iU]/L (Normal) Range: 0-40 Alkaline Phosphatase, S 87 [iU]/L (Normal) Range: 39-117 Bilirubin, Direct 0.20 mg/dL (Normal) Range: 0.00-0.40 Bilirubin, Total 0.9 mg/dL (Normal) Range: 0.0-1.2 Albumin, Serum 4.1 g/dL (Normal) Range: 3.5-5.5 Protein, Total, Serum 7.2 g/dL (Normal) Range: 6.0-8.5 :54 LIPOPROTEIN, BLD, BY NMR Comments: PATIENT WAS FASTINGPERFORMED BY: [employer] [id number] BY: lettrsJamie Ville [id number] [facility] [id number] (02439) LP-IR Score 82 (Abnormal) Comments: INSULIN RESISTANCE MARKER <--Insulin Sensitive Insulin Resistant--> Percentile in Reference PopulationInsulin Resistance ScoreLP-IR Score Low 25th 50th 75th High <27 27 45 63 >63LP-IR Score is inaccurate if patient is non-fasting. .The LP-IR score is a laboratory developed i [facility] that has beenassociated with insulin resistance and [...] were developed and their performance characteristicsdetermined by [employer]. These assays have not been cleared by [...] 2000 Very High > 2000 :54 CALCIFEDIOL (26764) Comments: PATIENT WAS FASTINGPERFORMED BY: Clarient[address] [id number] BY: [employer]52 [facility] [id number] Vitamin D, 25-Hydroxy 35.2 ng/mL (Normal) Range: 30.0-100.0 Comments: Vitamin D deficiency has been defined by the [place] of[place] and an Endocrine Society practice guideline as alevel of serum 25-OH vitamin D less than 20 ng/mL (1,2).The Endocrine Society went on to further define vitamin Dinsufficiency as a level between 21 and 29 ng/mL (2).1. IOM ([place] of Medicine). 2010. Dietary reference intakes for calcium and D. [place]: The National Academies Press.2. Ritika MF, Demetrio ARORA, Barbara PENNY, et al. Evaluation, treatment, and prevention of vitamin D deficiency: an Endocrine Society clinical practice guideline. JCEM. 2010; 96(7):1911-30. :54 TESTOSTERONE FREE (32889) Comments: PATIENT WAS FASTINGPERFORMED BY: Clarient[address] [id number] BY: WeddingLovely Fkabmp3794 [facility] [id number] Free Testosterone(Direct) 5.6 pg/mL (Abnormal) Range: 0.0-4.2 :54 FSH AND LH (18948) Comments: PATIENT WAS FASTINGPERFORMED BY: [employer] Gavkppumip[address] [id number] BY: WeddingLovely Auuwtm[address] [facility] Hospitalin [place] [id number] FSH 25.4 m[iU]/mL (Normal) Comments: Follicular phase 3.5 - 12.5 Ovulation phase 4.7 - 21.5 Luteal phase 1.7 - 7.7 Postmenopausal 25.8 - 134.8 LH 40.2 m[iU]/mL (Normal) Comments: Follicular phase 2.4 - 12.6 Ovulation phase 14.0 - 95.6 Luteal phase 1.0 - 11.4 Postmenopausal 7.7 - 58.5 72-Cmy-583829:54 DHEA-S (DEHYDROEPIANDROSTERONE Comments: PATIENT WAS FASTINGPERFORMED BY: lettrs[address] [id number] BY: [facility] [id number] SULFATE) (02819) DHEA-Sulfate 119.9 ug/dL (Normal) Range: 29.4-220.5 4-Scf-938505:03 Thin prep Pap Comments: Source.............Cervix;EndocervixNo. of containers..01 CYTYC Thin Prep VialPATIENT NOT FASTINGPERFORMED BY: =G Lab[address] [id number] BY: lettrs (93030) (no STD rp [address] [id number] Information: [id number] testing) Age Gdln ACOG Testing 30-65 (Normal) 13-Ggb-65737:48 URINE DAVID CULTURE-IDENTIFICATN Comments: PATIENT NOT FASTINGPERFORMED BY: Lab[address] [id number] Information: [id number] (89704) Result 1 MUG (Normal) Comments: Mixed urogenital flora2,000 Colonies/mL Urine Culture,Comprehensive Final report (Normal) 31-Yev-94333:05 Urinalysis, Office (79518) UA - LEUKOCYTE ESTERASE Negative (Normal) UA - NITRITE Negative (Normal) URINE UROBILINGN FANNY TIMED Normal mg/dL (Normal) UA - PROTEIN Negative mg/dL (Normal) UA - PH 5 (Abnormal) UA - BLOOD Non Hemolyzed Trace (Normal) UA - SPECIFIC GRAVITY 1.030 (Abnormal) UA - KETONES Negative mg/dL (Normal) UA - BILIRUBIN Negative (Normal) UA - GLUCOSE Negative (Normal) 64-Yyl-844703:37 URINE DAVID CULTURE-IDENTIFICATN Comments: PATIENT NOT FASTINGPERFORMED BY: [facility] Hospital6370 [facility] [id number] Information: [id number] (58307) Antimicrobial MIHEAD (Normal) Comments: S = Susceptible; [...] pneumoniae (Abnormal) Urine Final report Culture,Comprehensive (Abnormal) 60-Znd-432118:17 MICROALBUMIN: CREATININE RATIO Comments: PATIENT WAS FASTINGPERFORMED BY: lettrs Zwykvv4437 [facility] [id number] (37488) AND (21439) Microalb/Creat Ratio 6.1 {mg/g_creat} (Normal) Range: 0.0-30.0 Microalbumin, Urine 6.8 ug/mL (Normal) Range: 0.0-17.0 Comments: Effective January 25, 2016 the reference interval for Microalbumin, Urine will be changing to: Not Estab. Creatinine, Urine 111.5 mg/dL (Normal) Range: 15.0-278.0 Comments: Effective January 25, 2016 the reference interval for Creatinine, Urine will be changing to: Not Estab. 64-Cyj-600999:17 METABOLIC PANEL, COMPREHENSIVE Comments: PATIENT WAS FASTINGPERFORMED BY: [facility]6370 [facility] [id number] (96180) ALT (SGPT) 20 [iU]/L (Normal) Range: 0-32 [...] Glucose, Serum 118 mg/dL (Abnormal) Range: 65-99 83-Mjy-061497:17 LIPID PANEL (39895) Comments: PATIENT WAS FASTINGPERFORMED BY: LabCoGreystone Park Psychiatric HospitalOxwbft6480 [facility] [id number] LDL/HDL Ratio 3.4 {ratio_units} (Abnormal) Range: 0.0-3.2 [...] auto diff Comments: PATIENT WAS FASTINGPERFORMED BY: LabCoGreystone Park Psychiatric HospitalWbgjyg6574 [facility] [id number] Information: [id number] (01552) Immature Grans (Abs) 0.0 {x10E3/uL} (Normal) Range: [...] 3.77-5.28 WBC 7.7 {x10E3/uL} (Normal) Range: 3.4-10.8 54-Sal-463348:27 Urinalysis, Office (74746) UA - LEUKOCYTE ESTERASE Trace (Normal) UA [...] GLUCOSE Negative (Normal) :21 HgA1C , Office (10750) HgA1C , Office 6.6 % (Normal) Range: 4.6 - 7.1 :23 HgA1C , Office (18333) HgA1C , Office 5.7 % (Normal) Range: 4.6 - 7.1 :23 Blood Glucose , Office (69698) Blood Glucose , Office 101 (Normal) :42 [...] CHOL 199 mg/dL (Normal) Comments: <200 mg/dL Wgfprwwia978-871 mg/dL Borderline>240 mg/dL High Risk 79-Kcm-844510:01 Renal function Panel Comments: PATIENT NOT FASTINGPERFORMED BY: [facility]6370 [facility] [id number] Information: [id number] (99013) Albumin, Serum 4.5 g/dL (Normal) Range: 3.5-5.5 [...] Glucose, Serum 105 mg/dL (Abnormal) Range: 65-99 40-Hrg-700328:01 MAGNESIUM (80477) Comments: PATIENT NOT FASTINGPERFORMED BY: [facility]6370 [facility] [id number] Magnesium, Serum 1.8 mg/dL (Normal) Range: 1.6-2.6 88-Aed-570477:54 C-Reactive Protein (63534) Comments: PATIENT NOT FASTINGPERFORMED BY: LabCoGreystone Park Psychiatric HospitalTrtzha7712 [facility] [id number] C-Reactive Protein, Quant 2.5 mg/L (Normal) Range: 0.0-4.9 85-Xrd-749739:54 Sed Rate Erythrocyte (57282) Comments: PATIENT NOT FASTINGPERFORMED BY: [facility]6370 [facility] [id number] Sedimentation Rate-Westergren 4 mm/h (Normal) Range: 0-40 :54 T4, FREE (THYROXINE) (74020) Comments: PATIENT NOT FASTINGPERFORMED BY: [facility]6370 [facility] [id number] T4,Free(Direct) 1.32 ng/dL (Normal) Range: 0.82-1.77 :54 TSH (04003) Comments: PATIENT NOT FASTINGPERFORMED BY: [address] [id number] Information: [id number] TSH 1.770 {uIU/mL} (Normal) Range: 0.450-4.500 :39 HgA1C , Office (43895) HgA1C , Office 5.8 % (Normal) Range: 4.6 - 7.1 :39 Blood Glucose , Office (49934) Blood Glucose , Office 96 (Normal) :23 LIPID PANEL (74013) Comments: PATIENT WAS FASTINGPERFORMED BY: [facility]6370 [facility] [id number] Information: [id number] LDL/HDL Ratio 2.6 {ratio_units} (Normal) Range: 0.0-3.2 LDL Cholesterol Calc 99 mg/dL (Normal) Range: 0-99 VLDL Cholesterol Jesús 41 mg/dL (Abnormal) Range: 5-40 HDL Cholesterol 38 mg/dL (Abnormal) Comments: According to ATP-III Guidelines, HDL-C >59 mg/dL is considered anegative risk factor for CHD. Triglycerides 204 mg/dL (Abnormal) Range: 0-149 Cholesterol, Total 178 mg/dL (Normal) Range: 100-199 :23 HEPATIC FUNCTION PANEL (27365) Comments: PATIENT WAS FASTINGPERFORMED BY: [facility]6370 [facility] [id number] ALT (SGPT) 23 [iU]/L (Normal) Range: 0-32 AST (SGOT) 19 [iU]/L (Normal) Range: 0-40 Alkaline Phosphatase, S 84 [iU]/L (Normal) Range: 39-117 Bilirubin, Direct 0.23 mg/dL (Normal) Range: 0.00-0.40 Bilirubin, Total 1.0 mg/dL (Normal) Range: 0.0-1.2 Albumin, Serum 4.4 g/dL (Normal) Range: 3.5-5.5 Protein, Total, Serum 7.2 g/dL (Normal) Range: 6.0-8.5 :42 MICROALBUMIN: CREATININE RATIO Comments: PATIENT WAS FASTINGPERFORMED BY: WeddingLovely Taanuo3447 [facility] [id number] (42802) AND (90761) Creatinine, Urine 152.1 mg/dL (Normal) Range: 15.0-278.0 Microalb/Creat Ratio 23.3 {mg/g_creat} (Normal) Range: 0.0-30.0 Microalbumin, Urine 35.5 ug/mL (Abnormal) Range: 0.0-17.0 :42 METABOLIC PANEL, COMPREHENSIVE Comments: PATIENT WAS FASTINGPERFORMED BY: [employer]6370 [facility] [id number] (75320) ALT (SGPT) 18 [iU]/L (Normal) Range: 0-32 [...] mg/dL (Abnormal) Range: 65-99 :42 LIPID PANEL (54486) Comments: PATIENT WAS FASTINGPERFORMED BY: [employer]6370 [facility] [id number] LDL/HDL Ratio 3.5 {ratio_units} (Abnormal) Range: 0.0-3.2 [...] MANUAL DIFF Comments: PATIENT WAS FASTINGPERFORMED BY: WeddingLovelyPinon Health CenterOpnhuj9611 [facility] [id number] Information: [id number] (11078) Immature Grans (Abs) 0.0 {x10E3/uL} (Normal) Range: [...] 3.77-5.28 WBC 7.7 {x10E3/uL} (Normal) Range: 3.4-10.8 6-Xyx-928210:35 HgA1C , Office (63070) HgA1C , Office 6.4 % (Normal) Range: 4.6 - 7.1 6-Snu-107217:34 Blood Glucose , Office (47175) Blood Glucose , Office 124 (Normal) 26-Mll-097637:21 Rapid Flu ( x 2) Influenza A Ag negative (Normal) 54-Opy-744949:23 MICROALBUMIN: CREATININE RATIO Comments: PATIENT NOT FASTINGPERFORMED BY: lettrsGreystone Park Psychiatric HospitalHcnzrp8249 [facility] [id number] (24219) AND (57462) Microalb/Creat Ratio 3.5 {mg/g_creat} (Normal) Range: 0.0-30.0 Microalbumin, Urine 5.6 ug/mL (Normal) Range: 0.0-17.0 Creatinine, Urine 158.0 mg/dL (Normal) Range: 15.0-278.0 88-Wqq-930074:23 METABOLIC PANEL, COMPREHENSIVE Comments: PATIENT NOT FASTINGPERFORMED BY: LabCoGreystone Park Psychiatric HospitalWtlsfo5379 [facility] [id number] (40469) ALT (SGPT) 16 [iU]/L (Normal) Range: 0-32 [...] Glucose, Serum 101 mg/dL (Abnormal) Range: 65-99 31-Wei-052125:23 CBC WITH MANUAL DIFF Comments: PATIENT NOT FASTINGPERFORMED BY: LabCoGreystone Park Psychiatric HospitalAnyvke2961 [facility] [id number] Information: [id number] (51882) Immature Grans (Abs) 0.0 {x10E3/uL} (Normal) Range: [...] 3.77-5.28 WBC 8.5 {x10E3/uL} (Normal) Range: 4.0-10.5 71-Nyg-155936:52 Blood Glucose , Office (56698) Blood Glucose , Office 116 (Normal) 68-Otr-596383:52 HgA1C , Office (42679) HgA1C , Office 6.2 % (Normal) Range: 4.6 - 7.1 5-Hfn-819042:37 Rapid Flu (29833 x 2) Influenza A Ag negative (Normal) 67-Ghm-362857:27 HgA1C , Office (62708) HgA1C , Office 5.7 % (Normal) Range: 4.6 - 7.1 :27 Blood Glucose , Office (17510) Blood Glucose , Office 98 (Normal) 58-Vxo-654888:18 CREATININE CLEARANCE Comments: PATIENT NOT FASTINGPERFORMED BY: LabCoGreystone Park Psychiatric HospitalYnntwl5539 [facility] [id number] Information: [id number] (97762) 24 HOUR Creatinine Clearance 104 mL/min (Normal) Range: 88-128 Comments: The above range is based on 1.73 square meter average body surfacearea. Creatinine, Ur 24hr 1169.7 {mg/24_hr} (Normal) Range: 800.0-1800.0 Creatinine, Urine 55.7 mg/dL (Normal) Range: 15.0-278.0 eGFR If Africn Am 99 mL/min/1.73 (Normal) eGFR If NonAfricn Am 86 mL/min/1.73 (Normal) Creatinine, Serum 0.78 mg/dL (Normal) Range: 0.57-1.00 02-Bzj-124124:43 LIPID PANEL (76035) Comments: PATIENT WAS FASTINGPERFORMED BY: [facility] Cuokim5302 [facility] [id number] Information: [id number] LDL/HDL Ratio 3.0 {ratio_units} (Normal) Range: 0.0-3.2 LDL Cholesterol Calc 145 mg/dL (Abnormal) Range: 0-99 VLDL Cholesterol Jesús 61 mg/dL (Abnormal) Range: 5-40 HDL Cholesterol 48 mg/dL (Normal) Comments: According to ATP-III Guidelines, HDL-C >59 mg/dL is considered anegative risk factor for CHD. Triglycerides 307 mg/dL (Abnormal) Range: 0-149 Cholesterol, Total 254 mg/dL (Abnormal) Range: 100-199 [id number]-Muy-[id number]:53 HgA1C , Office (46572) HgA1C , Office 6.8 % (Normal) Range: 4.6 - 7.1 [id number]-[id number]:53 Blood Glucose , Office (12284) Blood Glucose , Office 111 (Normal) 07-Jwi-657926:03 Thin prep Pap Comments: Source.............Cervical;EndocervicalNo. of containers..01 CYTYC Thin Prep VialPATIENT NOT FASTINGPERFORMED BY: [facility] [address] [id number] Information: [id number] ([id number]) Note: PAPSMR (Normal) Comments: The Pap smear [...] is identified.V72.31 ; Routine gynecological examinationCyntyovany Nails Still Worker Helper (ASCP) [id number]-Qiz-518221:06 HgA1C , Office (27638) HgA1C , Office 5.8 % (Normal) Range: 4.6 - 7.1 :06 Blood Glucose , Office (45929) Blood Glucose , Office 100 (Normal) 04-Pve-394068:19 BILAT [facility] DIGITAL & CAD Radiology Report See Note (Normal) Comments: Exam Number: [id number] MAMMOGRAM, BILATERAL SCREENING DIGITAL AND CAD HISTORYRoutine [...] mammograms werealso examined with computer-aided detection software ([employer], [employer] Reported By: CASEY WARD M.D. 6-Unk-864658:27 HgA1C , Office (22152) HgA1C , Office 5.7 % (Normal) Range: [...] 11.6-14.6 WBC 6.8 K/mm3 (Normal) Range: 4.4-11.0 60-Zvp-63157:11 COMP METABOLIC ALT 23 U/L (Abnormal) Range: [...] T PROT 7.6 g/dL (Normal) Range: 6.4-8.2 06-Omy-32226:11 ROUTINE UA BILIRUBIN URINE SeeNote (Normal) Comments: [...] 0.2 EU/dl (Normal) Range: 0.2 - 1.0 28-Lpr-121971:09 Pap Lb, Ct-Ng, Comments: Source.............Cervical;EndocervicalNo. of containers..01 CYTYC Thin Prep VialClinical Information: [id number] PERFORMED BY: =[facility] [id number] HPV-hr . . (Normal) Chlamydia, Nuc. Acid Amp Negative (Normal) DIAGNOSIS: SPRCS (Normal) Comments: NEGATIVE FOR INTRAEPITHELIAL LESION AND MALIGNANCY.Satisfactory for evaluation. Endocervical and/or squamous metaplasticcells (endocervical component) are present.789.07 ; Abdominal pain, g eneralizedG Iveth Ugalde, Supervisory Still Worker Helper (ASCP) Gonococcus, Nuc. Acid Amp Negative (Normal) [...] :08 Genital Culture, Routine Comments: [facility] [id number] [facility] [id number] Genital Culture, Routine Final report (Normal) Result 1 RGF (Normal) Comments: Routine genital gerard. :08 Vaginitis/Vaginosis, DNA Probe Comments: Clinical Information: SRC:VA [facility]FORMED BY: [facility] [id number] [facility] [id number] Nathaniel species Negative (Normal) Gardnerella vaginalis Negative (Normal) Trichomonas vaginalis Negative (Normal) 9-Kit-717706:5 C-REACTIVE PROT 5.99 mg/L (Normal) Range: 0.0-6.0 0 Comments: Test performed using the Dimension C-Reactive ProteinExtended Range assay method. This assay meets the AHA/CDC 2003 recommendations fordetermining patients at high risk for cardiovasculardisease. Reference: High risk CRP >3.0 mg/L 5-Eud-757212:50 CBCD,SMEAR DIFF BAND 4 % (Normal) Range: [...] Report See Note (Normal) Comments: Exam Number: [id number] ACUTE ABDOMEN INCLUDING CHEST HISTORYEpigastric pain since [...] methodology of Hgb A1C has changed to Rutherford BehringDimension RXL. No significant changes in patientresults [...] Thin prep Pap Comments: Source.............Cervical;EndocervicalLMP / Prev Treat...TKB=[id number]. of containers..01 CYTYC Thin Prep VialPATIENT NOT FASTINGClinical Information: ADD [id number] PERFORMED BY: [facility] ([id number]) [address] [id number] . . (Normal) DIAGNOSIS: SPRCS (Normal) Comments: [...] resulttherefore, no HPV testing was performed. . 51-Hto-61535:28 [facility] See Note (Normal) Comments: Exam Number: [id number] BILATERAL SCREENING DIGITAL MAMMOGRAM CLINICAL INFORMATIONScreening. Bilateral [...] mammogramswere also examined with computer- aided detection software([employer], [employer] Reported By: BALBIR GATICA M.D. Plan of [...] Cancer Screening Indication: WWV V70.0 Planned Observations MICROALBUMIN: CREATININE RATIO (21209) AND (88942)Indication: Hypertension, benign On: 24-Ige-699070:01 Request URINALYSIS (25267)Indication: Hypertension, benign On: 21-Bfx-284645:01 Request D-Dimer (60429)Indication: Multiple pulmonary emboli On: 4-Dju-776703:21 Request Rapid Strep Test, Office (40473)Indication: Acute pharyngitis On: 74-Dpp-522297:53 Request Homocysteine, Plasma (77726)Indication: Elevated serum homocysteine level On: 39-Iaq-269028:08 Request CBC W/AUTO DIFF WBC (60567)Indication: Multiple pulmonary emboli On: 49-Vwk-668292:45 Request Homocysteine, Plasma (05724)Indication: Multiple pulmonary emboli On: :24 Request Comments: please add to labs drawn pre coag MTHFR (89697)Indication: Multiple pulmonary emboli On: :24 Request Comments: please add to labs drawn pre coag TESTOSTERONE FREE (53905)Indication: Elevated testosterone level in female On: 22-Sep-20169:52 Request METABOLIC PANEL, COMPREHENSIVE (02733)Indication: Hypercholesteremia On: 6-Xfb-644806:14 Request LIPOPROTEIN, BLD, BY NMR (57262)Indication: Hypercholesteremia On: 1-Tih-718414:14 Request Cortisol,Urinary Free 24- Hour Urine (25200)Indication: Diabetes mellitus type II, controlled, with no complications On: :34 Request URINALYSIS (33201)Indication: UTI (urinary tract infection) On: :04 Request Comments: recheck 10 days after ATB URINE DAVID CULTURE-IDENTIFICATN (83502)Indication: UTI (urinary tract infection) On: 91-Fka-039361:03 Request Comments: recheck 10 days after ATB CBC with auto diff (27452)Indication: Diabetes mellitus type II, controlled, with no complications On: 91-Cmd-936656:14 Request LIPID PANEL (12715)Indication: Hypercholesteremia On: :14 Request METABOLIC PANEL, COMPREHENSIVE (05097)Indication: Diabetes mellitus type II, controlled, with no complications On: 41-Jdg-379489:14 Request MICROALBUMIN: CREATININE RATIO (92545) AND (08997)Indication: Diabetes mellitus type II, controlled, with no complications On: 02-Rln-408001:14 Request Hemoglobin Glyclated (HGB A1C) (28168)Indication: Diabetes mellitus type II, controlled, with no complications On: 96-Nln-142802:14 Request METABOLIC PANEL, COMPREHENSIVE (48175)Indication: Diabetes mellitus type II, controlled, with no complications On: 76-Hdm-512462:20 Request LIPID PANEL (57529)Indication: Diabetes mellitus type II, controlled, with no complications On: 75-Lii-557583:20 Request CBC W/AUTO DIFF WBC (13064)Indication: Diabetes mellitus type II, controlled, with no complications On: 64-Eeo-749521:20 Request MICROALBUMIN: CREATININE RATIO (85886) AND (08175)Indication: Diabetes mellitus type II, controlled, with no complications On: :59 Request METABOLIC PANEL, COMPREHENSIVE (15640)Indication: Diabetes mellitus type II, controlled, with no complications On: :59 Request LIPID PANEL (06312)Indication: Diabetes mellitus type II, controlled, with no complications On: :59 Request CBC WITH MANUAL DIFF (43905)Indication: Diabetes mellitus type II, controlled, with no complications On: 45-Mwg-675591:59 Request MICROALBUMIN: CREATININE RATIO (42972) AND (18105)Indication: Diabetes mellitus type 2, uncontrolled, without complications On: 24-Gdd-945001:10 Request PT (Prothrobim Time) (13574)Indication: Pre-operative examination On: :13 Request PTT (Activated Partial Thromboplastin Time) (60428)Indication: Pre-operative examination On: :13 Request CBC with manual diff (03249)Indication: Pre-operative examination On: 57-Nfh-059506:13 Request Metabolic Panel, Basic (32408)Indication: Pre-operative examination On: 82-Obp-392462:11 Request Lipid Panel (26569)Indication: Hypertension, benign On: :31 Request TSH (62840)Indication: Hypertension, benign On: : Request URINALYSIS, W/ MICRO (74206)Indication: Hypertension, benign On: : Request MICROALBUMIN: CREATININE RATIO (21857) AND (71651)Indication: Hypertension, benign On: :31 Request METABOLIC PANEL, COMPREHENSIVE (96692)Indication: Hypertension, benign On: : Request LIPOPROTEIN, BLD, BY NMR (57249)Indication: Hypertension, benign On: : Request LIPID PANEL (36119)Indication: Hypertension, benign On: :31 Request CBC WITH MANUAL DIFF (95954)Indication: Hypertension, benign On: : Request thin prep (64455) (std testing)Indication: Abdominal pain, acute, generalized On: : Request NEISSERIA (25245) (THIN PREP OBTAINED)Indication: Abdominal pain, acute, generalized On: : Request CHLAMYDIA (84936) (thin prep obtained)Indication: Abdominal pain, acute, generalized On: : Request INFCT ANTGN TRICH VAGIN DIRECT PRB (50672)Indication: Abdominal pain, acute, generalized On: : Request GARDNERELLA VAG, NUCLEIC ACID DIR PROBE (32300)Indication: Abdominal pain, acute, generalized On: :27 Request NATHANIEL, NUCLEIC ACID DIRECT PROBE (52442)Indication: Abdominal pain, acute, generalized On: : Request DAVID CULTURE-OTHER (99715)Indication: Abdominal pain, acute, generalized On: 63-Wpm-015864:27 Request CBC (Auto) (98851)Indication: Abdominal pain, acute, generalized On: 13-Qmp-499868:26 Request Metabolic Panel, Comprehensive (27392)Indication: Abdominal pain, acute, generalized On: 58-Ygt-099548:26 Request Urinalysis, Office (80388)Indication: Abdominal pain, acute, generalized On: 14-Kgi-143282:44 Request C-REACTIVE PROTEIN (67598)Indication: Epigastric pain On: :24 Request SED RATE ERYTHROCYTE (77441)Indication: Epigastric pain On: :24 Request METABOLIC PANEL, COMPREHENSIVE (51933)Indication: Epigastric pain On: :24 Request CBC WITH MANUAL DIFF (78155)Indication: Epigastric pain On: 0-Vpz-915804:23 Request Hemoglobin Glyclated (HGB A1C) (45529)Indication: Hypoglycemia On: 6-Myu-385301:21 Request Lipid Panel (07010)Indication: Hypercholesteremia On: 4-Iam-586277:21 Request Planned Encounters Medical; [facility] (Doctor) - On: 13-Jul-2018 10:15 [facility] Barry GONZALEZ, Zeinab Eoduard MD Planned Procedures SCREENING DIGITAL TOMOSYNTHESIS OF On: 13-Jul-2017 Intent BREAST (79501)By: Zeinab Reddy MD, MD, Dana M EKG (51083)By: Zeinab Reddy MD On: 21-Nov-2016 Intent Zeinab Reddy MD Ultrasound - PelvisBy: Barry GONZALEZ, On: 24-Oct-2016 Intent Zeinab Edouard MD Comments: copy to Dr. mcdaniel. CT - Abdomen (IV Contrast Needed)By: On: 26-Aug-2016 Intent Zeinab Reddy MD, MD, Dana Comments: attention adrenals. M Flu Vaccine (Quadrivalent) 22351Tm: On: 04-Jul-2016 Intent Zeinab Reddy MD, MD, Dana M US DOPPLER CAROTID BILATERAL On: 26-May-2016 Intent (62631)By: Zeinab Reddy MD, MD, Dana M DEXA SCAN AXIAL SKELETON (77051)By: On: 26-May-2016 Intent Zeinab Reddy MD, MD, Dana M BILATERAL MAMMOGRAMS (08948)By: On: 26-May-2016 Intent Zeinab Reddy MD, MD, Dana M Nuclear Stress Test/Stress On: 05-Aug-2014 Intent SPECT/TreadmillBy: Carlotta Dennis CNP Carotid DopplerBy: Zeinab Reddy MD On: 06-Jun-2014 Intent Zeinab Wiley MD Comments: dizzy MRI - Brain (IV Contrast Needed)By: On: 06-Jun-2014 Intent Zeinab Reddy MD, MD, Dana M Holter Monitor 24 hrsBy: Barry GONZALEZ, On: 06-Jun-2014 Intent Zeinab Edouard MD EKG (66574)By: Zeinab Reddy MD On: 02-Jun-2014 Intent Zeinab Reddy MD Comments: see scanned document of test done to see results reviewed today with patient MAMMOGRAM, SCREENING, BOTH BREASTS On: 21-Jan-2014 Intent (40185)By: Zeinab Reddy MD, MD, Dana M Eprescribed prescriptions (G8553)By: On: 21-Jan-2014 Intent Zeinab Reddy MD, MD, Dana M Aerosol Treatment (32239)By: Jacy On: 07-Nov-2013 Intent Tracy MURPHY Comments: after aerosol - more a/e less inspir noise but lots of exp noise Spirometry (29810)By: Jacy MURPHY, On: 07-Nov-2013 Intent Tracy Comments: poor effort and difficult time diong with coughjing -- restriction shown Eprescribed prescriptions (G8553)By: On: 07-Nov-2013 Intent Tracy Louie DO Aerosol Treatment (75649)By: Ciesa On: 24-Sep-2012 Intent Carlotta LIANG Eprescribed prescriptions (G8553)By: On: 12-Jun-2012 Intent Tania Ledbetter LPN IMMUNIZ ADMNIN, 1 VAC, SNGL/COMBO On: 12-Jun-2012 Intent (53180)By: Tania Ledbetter LPN FLU VAC, SPLIT, >3 YEARS, INTRAMUSC On: 12-Jun-2012 Intent (94473)By: Tania Ledbetter LPN ELECTROCARDIOGRAM, COMPLETE (ECG) On: 10-Apr-2012 Intent (79895)By: Jeannie Carlotta LIANG Spirometry (62468)By: Dwight MURPHY, On: 10-Jan-2011 Intent Valarie A Comments: done km- good effort and curve- mod obst Solu -Medrol Injection, 125 mg On: 10-Jan-2011 Intent (J2930)By: Jessica Alba LPN Comments: 2ml given im rt hip lotobjk2 exp 1-14 Pulse Oximetry (57703)By: Dwight MURPHY, On: 10-Jan-2011 Intent Valarie A Comments: 96% Aerosol Treatment (89622)By: Fast On: 10-Jan-2011 Intent Valarie MURPHY Comments: done with albuterol 0.83%pt tolerated well MAMMOGRAM, SCREENING, BOTH BREASTS On: 30-Nov-2010 Intent (75917)By: Zeinab Reddy MD, MD, Dana M MAMMOGRAM, SCREENING, BOTH BREASTS On: 23-Jul-2009 Intent (76993)By: Zeinab Reddy MD, MD, Dana M EKG (88196)By: Zeinab Reddy MD On: 23-Jul-2009 Intent Zeinab Reddy MD Radiology - Abdomen SeriesBy: Jacy On: 19-Dec-2008 Intent Tracy MURPHY TD Injection , IM (58057)By: On: 21-Jan-2008 Intent Zeinab Reddy MD, MD, Dana M MAMMOGRAM, SCREENING, BOTH BREASTS On: 21-Jan-2008 Intent (31550)By: Zeinab Reddy MD, MD, Dana M Planned Medications INJECTION, METHYLPREDNISOLONE SODIUM SUCCINATE, UP TO 125 MG Ordered: 10-Jan-2011 Jessica Billingsley LPN Instructions Name Dates Details Sinusitis, acute [...] inoculation against influenza Encounters Office Visit On: 09-Jul-2018 10:24 Encounter Reason: [...] pain [facility] Phone Encounter On: 25-Aug-2017 7:36 Encounter Reason: Nurse procedure visit - [...] adult [facility] Office Visit On: 15-May-2015 12:12 Encounter Reason: Follow up Meds - [...] Woman Exam (V72.31) (Pap,Mammo,Routine Female) (Renamed from [employer] Woman V72.31 (p,m)), Fever and chills, Elevated [...] (Renamed from Hypercholesteremia (272.0)), Sleep disorder (780.50), [facility] V70.0 [facility] Payers Aliza HUFF; a guarantor
--- OUTSIDE RECORDS SUMMARY | 2018-10-10 11:26 | XMS RPT_ITS | Continuity of Care Document ---
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 Direct 0.20 mg/dL (Normal) Range: 0.00-0.40 Bilirubin, Total 0.9 mg/dL (Normal) Range: 0.0-1.2 Albumin, Serum 4.1 g/dL (Normal) Range: 3.5-5.5 Protein, Total, Serum 7.2 g/dL (Normal) Range: 6.0-8.5 18-Teq-374682:54 LIPOPROTEIN, BLD, BY NMR Comments: PATIENT WAS FASTINGPERFORMED BY: BN [facility] Wgaiixjdtt9868 [facility] [id number] BY: CB [facility] Luztaz0534 [facility] [id number] (47611) LP-IR Score 82 (Abnormal) Comments: INSULIN RESISTANCE MARKER <--Insulin Sensitive Insulin Resistant--> Percentile in Reference PopulationInsulin Resistance ScoreLP-IR Score Low 25th 50th 75th High <27 27 45 63 >63LP-IR Score is inaccurate if patient is non-fasting. .The LP-IR score is a laboratory developed i [facility] that has beenassociated with insulin resistance [...] were developed and their performance characteristicsdetermined by [employer]. These assays have not been cleared by [...] 1600 - 2000 Very High > 2000 00-Jpx-934457:54 CALCIFEDIOL (53611) Comments: PATIENT WAS FASTINGPERFORMED BY: BN [facility] [address] [id number] BY: CB [facility] Klqshk3677 [facility] [id number] Vitamin D, 25-Hydroxy 35.2 ng/mL (Normal) Range: 30.0-100.0 Comments: Vitamin D deficiency has been defined by the [place] ofMedicine and an Endocrine Society practice guideline as alevel of serum 25-OH vitamin D less than 20 ng/mL (1,2).The Endocrine Society went on to further define vitamin Dinsufficiency as a level between 21 and 29 ng/mL (2).1. IOM ([place] of Medicine). 2010. Dietary reference intakes for calcium and D. [place]: The National Academies Press.2. Ritika MF, Deemtrio ARORA, Barbara PENNY, et al. Evaluation, treatment, and prevention of vitamin D deficiency: an Endocrine Society clinical practice guideline. JCEM. 2010; 96(7):1911-30. 14-Otu-194838:54 TESTOSTERONE FREE (21956) Comments: PATIENT WAS FASTINGPERFORMED BY: vpod.tv[address] [id number] BY: [place] 2662470 [facility] [id number] Free Testosterone(Direct) 5.6 pg/mL (Abnormal) Range: 0.0-4.2 42-Iyb-879761:54 FSH AND LH (62763) Comments: PATIENT WAS FASTINGPERFORMED BY: vpod.tv[address] [id number] BY: [place] 2662470 [facility] [id number] FSH 25.4 m[iU]/mL (Normal) Comments: Follicular phase 3.5 - 12.5 Ovulation phase 4.7 - 21.5 Luteal phase 1.7 - 7.7 Postmenopausal 25.8 - 134.8 LH 40.2 m[iU]/mL (Normal) Comments: Follicular phase 2.4 - 12.6 Ovulation phase 14.0 - 95.6 Luteal phase 1.0 - 11.4 Postmenopausal 7.7 - 58.5 00-Olo-382247:54 DHEA-S (DEHYDROEPIANDROSTERONE Comments: PATIENT WAS FASTINGPERFORMED BY: vpod.tv[address] [id number] BY: [place] 2662470 [facility] [id number] SULFATE) (89180) DHEA-Sulfate 119.9 ug/dL (Normal) Range: 29.4-220.5 6-Hws-377039:03 Thin prep Pap Comments: Source.............Cervix;EndocervixNo. of containers..01 CYTYC Thin Prep VialPATIENT NOT FASTINGPERFORMED BY: =G Lab[address] [id number] BY: [employer] (23253) (no STD rp [address] [id number] Information: [id number] testing) Age Gdln ACOG Testing 30-65 (Normal) 19-Kkm-83251:48 URINE DAVID CULTURE-IDENTIFICATN Comments: PATIENT NOT FASTINGPERFORMED BY: vpod.tvPaul Ville 8120470 [facility] [id number] Information: [id number] (78064) Result 1 MUG (Normal) Comments: Mixed urogenital flora2,000 Colonies/mL Urine Culture,Comprehensive Final report (Normal) 93-Ucs-25150:05 Urinalysis, Office (56139) UA - LEUKOCYTE ESTERASE Negative (Normal) UA - NITRITE Negative (Normal) URINE UROBILINGN FANNY TIMED Normal mg/dL (Normal) UA - PROTEIN Negative mg/dL (Normal) UA - PH 5 (Abnormal) UA - BLOOD Non Hemolyzed Trace (Normal) UA - SPECIFIC GRAVITY 1.030 (Abnormal) UA - KETONES Negative mg/dL (Normal) UA - BILIRUBIN Negative (Normal) UA - GLUCOSE Negative (Normal) 98-Ucm-693866:37 URINE DAVID CULTURE-IDENTIFICATN Comments: PATIENT NOT FASTINGPERFORMED BY: vpod.tvPaul [place] 8120470 [facility] [id number] Information: [id number] (09307) Antimicrobial MIHEAD (Normal) Comments: S = Susceptible; [...] pneumoniae (Abnormal) Urine Final report Culture,Comprehensive (Abnormal) 88-Mih-140662:17 MICROALBUMIN: CREATININE RATIO Comments: PATIENT WAS FASTINGPERFORMED BY: vpod.tvPaul [place] 8120470 [facility] [id number] (79339) AND (61273) Microalb/Creat Ratio 6.1 {mg/g_creat} (Normal) Range: 0.0-30.0 Microalbumin, Urine 6.8 ug/mL (Normal) Range: 0.0-17.0 Comments: Effective January 25, 2016 the reference interval for Microalbumin, Urine will be changing to: Not Estab. Creatinine, Urine 111.5 mg/dL (Normal) Range: 15.0-278.0 Comments: Effective January 25, 2016 the reference interval for Creatinine, Urine will be changing to: Not Estab. 69-Qoi-101236:17 METABOLIC PANEL, COMPREHENSIVE Comments: PATIENT WAS FASTINGPERFORMED BY: LabCoSaint Barnabas Behavioral Health CenterScemlr6917 [facility] [id number] (76438) ALT (SGPT) 20 [iU]/L (Normal) Range: 0-32 [...] Glucose, Serum 118 mg/dL (Abnormal) Range: 65-99 89-Qcl-410952:17 LIPID PANEL (21909) Comments: PATIENT WAS FASTINGPERFORMED BY: TapTrakSaint Barnabas Behavioral Health CenterOnyqyo3036 [facility] [id number] LDL/HDL Ratio 3.4 {ratio_units} (Abnormal) Range: 0.0-3.2 [...] auto diff Comments: PATIENT WAS FASTINGPERFORMED BY: [employer] Yvzkso8621 [facility] [id number] Information: [id number] (11686) Immature Grans (Abs) 0.0 {x10E3/uL} (Normal) Range: [...] {x10E3/uL} (Normal) Range: 3.4-10.8 :27 Urinalysis, Office (73259) UA - LEUKOCYTE ESTERASE Trace (Normal) UA [...] GLUCOSE Negative (Normal) :21 HgA1C , Office (81363) HgA1C , Office 6.6 % (Normal) Range: 4.6 - 7.1 :23 HgA1C , Office (97365) HgA1C , Office 5.7 % (Normal) Range: 4.6 - 7.1 :23 Blood Glucose , Office (28876) Blood Glucose , Office 101 (Normal) :42 [...] CHOL 199 mg/dL (Normal) Comments: <200 mg/dL Rsfatefjk896-086 mg/dL Borderline>240 mg/dL High Risk 39-Jga-136933:01 Renal function Panel Comments: PATIENT NOT FASTINGPERFORMED BY: NATION TechnologiesPending sale to [facility] [id number] Information: [id number] (36059) Albumin, Serum 4.5 g/dL (Normal) Range: 3.5-5.5 [...] Glucose, Serum 105 mg/dL (Abnormal) Range: 65-99 03-Daw-912427:01 MAGNESIUM (55932) Comments: PATIENT NOT FASTINGPERFORMED BY: [employer] [place] [id number] Magnesium, Serum 1.8 mg/dL (Normal) Range: 1.6-2.6 :54 C-Reactive Protein (51021) Comments: PATIENT NOT FASTINGPERFORMED BY: [facility]6370 [facility] [id number] C-Reactive Protein, Quant 2.5 mg/L (Normal) Range: 0.0-4.9 :54 Sed Rate Erythrocyte (61593) Comments: PATIENT NOT FASTINGPERFORMED BY: [place] 2662470 [facility] [id number] Sedimentation Rate-Westergren 4 mm/h (Normal) Range: 0-40 :54 T4, FREE (THYROXINE) (73803) Comments: PATIENT NOT FASTINGPERFORMED BY: [facility]6370 [facility] [id number] T4,Free(Direct) 1.32 ng/dL (Normal) Range: 0.82-1.77 :54 TSH (06243) Comments: PATIENT NOT FASTINGPERFORMED BY: [place] 2662470 [facility] [id number] Information: [id number] TSH 1.770 {uIU/mL} (Normal) Range: 0.450-4.500 :39 HgA1C , Office (79197) HgA1C , Office 5.8 % (Normal) Range: 4.6 - 7.1 :39 Blood Glucose , Office (58405) Blood Glucose , Office 96 (Normal) :23 LIPID PANEL (58773) Comments: PATIENT WAS FASTINGPERFORMED BY: [place] 2662470 [facility] [id number] Information: [id number] LDL/HDL Ratio 2.6 {ratio_units} (Normal) Range: 0.0-3.2 LDL Cholesterol Calc 99 mg/dL (Normal) Range: 0-99 VLDL Cholesterol Jesús 41 mg/dL (Abnormal) Range: 5-40 HDL Cholesterol 38 mg/dL (Abnormal) Comments: According to ATP-III Guidelines, HDL-C >59 mg/dL is considered anegative risk factor for CHD. Triglycerides 204 mg/dL (Abnormal) Range: 0-149 Cholesterol, Total 178 mg/dL (Normal) Range: 100-199 :23 HEPATIC FUNCTION PANEL (20544) Comments: PATIENT WAS FASTINGPERFORMED BY: [employer]unch[employer]70 [facility] [id number] ALT (SGPT) 23 [iU]/L (Normal) Range: 0-32 AST (SGOT) 19 [iU]/L (Normal) Range: 0-40 Alkaline Phosphatase, S 84 [iU]/L (Normal) Range: 39-117 Bilirubin, Direct 0.23 mg/dL (Normal) Range: 0.00-0.40 Bilirubin, Total 1.0 mg/dL (Normal) Range: 0.0-1.2 Albumin, Serum 4.4 g/dL (Normal) Range: 3.5-5.5 Protein, Total, Serum 7.2 g/dL (Normal) Range: 6.0-8.5 :42 MICROALBUMIN: CREATININE RATIO Comments: PATIENT WAS FASTINGPERFORMED BY: [employer]unch[employer]70 [facility] [id number] (21567) AND (19590) Creatinine, Urine 152.1 mg/dL (Normal) Range: 15.0-278.0 Microalb/Creat Ratio 23.3 {mg/g_creat} (Normal) Range: 0.0-30.0 Microalbumin, Urine 35.5 ug/mL (Abnormal) Range: 0.0-17.0 :42 METABOLIC PANEL, COMPREHENSIVE Comments: PATIENT WAS FASTINGPERFORMED BY: Crunch[employer]70 [facility] [id number] (56969) ALT (SGPT) 18 [iU]/L (Normal) Range: 0-32 [...] mg/dL (Abnormal) Range: 65-99 :42 LIPID PANEL (94355) Comments: PATIENT WAS FASTINGPERFORMED BY: [employer]6370 [facility] [id number] LDL/HDL Ratio 3.5 {ratio_units} (Abnormal) Range: 0.0-3.2 [...] MANUAL DIFF Comments: PATIENT WAS FASTINGPERFORMED BY: [employer]6370 [facility] [id number] Information: [id number] (93352) Immature Grans (Abs) 0.0 {x10E3/uL} (Normal) Range: [...] (Normal) Range: 3.4-10.8 :35 HgA1C , Office (58674) HgA1C , Office 6.4 % (Normal) Range: 4.6 - 7.1 :34 Blood Glucose , Office (28629) Blood Glucose , Office 124 (Normal) 37-Ctn-767119:21 Rapid Flu (42200 x 2) Influenza A Ag negative (Normal) 82-Btw-401719:23 MICROALBUMIN: CREATININE RATIO Comments: PATIENT NOT FASTINGPERFORMED BY: TapTrakSaint Barnabas Behavioral Health CenterOqqpxk9957 [facility] [id number] (57645) AND (48355) Microalb/Creat Ratio 3.5 {mg/g_creat} (Normal) Range: 0.0-30.0 Microalbumin, Urine 5.6 ug/mL (Normal) Range: 0.0-17.0 Creatinine, Urine 158.0 mg/dL (Normal) Range: 15.0-278.0 20-Xce-527410:23 METABOLIC PANEL, COMPREHENSIVE Comments: PATIENT NOT FASTINGPERFORMED BY: [employer] Hcqtmp1497 [facility] [id number] (67868) ALT (SGPT) 16 [iU]/L (Normal) Range: 0-32 [...] Glucose, Serum 101 mg/dL (Abnormal) Range: 65-99 95-Cot-579704:23 CBC WITH MANUAL DIFF Comments: PATIENT NOT FASTINGPERFORMED BY: LabCoSaint Barnabas Behavioral Health CenterXftfqc2546 [facility] [id number] Information: [id number] (61432) Immature Grans (Abs) 0.0 {x10E3/uL} (Normal) Range: [...] Range: 4.0-10.5 :52 Blood Glucose , Office (25654) Blood Glucose , Office 116 (Normal) 96-Kdh-158783:52 HgA1C , Office (70689) HgA1C , Office 6.2 % (Normal) Range: 4.6 - 7.1 :37 Rapid Flu (25281 x 2) Influenza A Ag negative (Normal) :27 HgA1C , Office (18848) HgA1C , Office 5.7 % (Normal) Range: 4.6 - 7.1 :27 Blood Glucose , Office (01487) Blood Glucose , Office 98 (Normal) :18 CREATININE CLEARANCE Comments: PATIENT NOT FASTINGPERFORMED BY: LabecoATM[address] [id number] Information: [id number] (99392) 24 HOUR Creatinine Clearance 104 mL/min (Normal) Range: 88-128 Comments: The above range is based on 1.73 square meter average body surfacearea. Creatinine, Ur 24hr 1169.7 {mg/24_hr} (Normal) Range: 800.0-1800.0 Creatinine, Urine 55.7 mg/dL (Normal) Range: 15.0-278.0 eGFR If Africn Am 99 mL/min/1.73 (Normal) eGFR If NonAfricn Am 86 mL/min/1.73 (Normal) Creatinine, Serum 0.78 mg/dL (Normal) Range: 0.57-1.00 :43 LIPID PANEL (81597) Comments: PATIENT WAS FASTINGPERFORMED BY: LabCoRobert Ville 0134670 [facility] [id number] Information: [id number] LDL/HDL Ratio 3.0 {ratio_units} (Normal) Range: 0.0-3.2 LDL Cholesterol Calc 145 mg/dL (Abnormal) Range: 0-99 VLDL Cholesterol Jesús 61 mg/dL (Abnormal) Range: 5-40 HDL Cholesterol 48 mg/dL (Normal) Comments: According to ATP-III Guidelines, HDL-C >59 mg/dL is considered anegative risk factor for CHD. Triglycerides 307 mg/dL (Abnormal) Range: 0-149 Cholesterol, Total 254 mg/dL (Abnormal) Range: 100-199 :53 HgA1C , Office (17172) HgA1C , Office 6.8 % (Normal) Range: 4.6 - 7.1 57-Nlj-486311:53 Blood Glucose , Office (90435) Blood Glucose , Office 111 (Normal) 82-Qrx-668952:03 Thin prep Pap Comments: Source.............Cervical;EndocervicalNo. of containers..01 CYTYC Thin Prep VialPATIENT NOT FASTINGPERFORMED BY: LabCo[address] AzraNew [facility] Rehabilitation Hospital At Danversrosemarieselect specialty hospital [facility] [place] [id number] Information: [id number] (41569) Note: PAPSMR (Normal) Comments: The Pap smear [...] is identified.V72.31 ; Routine gynecological examinationCyntyovany Nails Photo Manager (ASCP) 76-Eet-823277:06 HgA1C , Office (09427) HgA1C , Office 5.8 % (Normal) Range: 4.6 - 7.1 68-Eba-545931:06 Blood Glucose , Office (13830) Blood Glucose , Office 100 (Normal) 32-Nlr-961878:19 BILAT SCRN DIGITAL & CAD Radiology Report See Note (Normal) Comments: Exam Number: [id number] MAMMOGRAM, BILATERAL SCREENING DIGITAL AND CAD HISTORYRoutine [...] mammograms werealso examined with computer-aided detection software ([employer], [employer] Reported By: CASEY WARD M.D. :27 HgA1C , Office (31599) HgA1C , Office 5.7 % (Normal) Range: [...] T PROT 7.6 g/dL (Normal) Range: 6.4-8.2 95-Wbw-40480:11 ROUTINE UA BILIRUBIN URINE SeeNote (Normal) Comments: [...] 0.2 EU/dl (Normal) Range: 0.2 - 1.0 29-Yjh-063481:09 Pap Lb, Ct-Ng, Comments: Source.............Cervical;EndocervicalNo. of containers..01 CYTYC Thin Prep VialClinical Information: [id number] PERFORMED BY: =G Lab[address] [id number] HPV-hr . . (Normal) Chlamydia, Nuc. Acid Amp Negative (Normal) DIAGNOSIS: SPRCS (Normal) Comments: NEGATIVE FOR INTRAEPITHELIAL LESION AND MALIGNANCY.Satisfactory for evaluation. Endocervical and/or squamous metaplasticcells (endocervical component) are present.789.07 ; Abdominal pain, g eneralizedG Iveth Ugalde, Supervisory Photo Manager (ASCP) Gonococcus, Nuc. Acid Amp Negative (Normal) [...] :08 Genital Culture, Routine Comments: PERFORMED BY: [employer]6370 [facility] [id number] Genital Culture, Routine Final report (Normal) Result 1 RGF (Normal) Comments: Routine genital gerard. :08 Vaginitis/Vaginosis, DNA Probe Comments: Clinical Information: SRC:VA PERFORMED BY: [employer] Wqkatn2448 [facility] [id number] Nathaniel species Negative (Normal) Gardnerella vaginalis Negative (Normal) Trichomonas vaginalis Negative (Normal) 9-Bpl-792817:5 C-REACTIVE PROT 5.99 mg/L (Normal) Range: 0.0-6.0 0 Comments: Test performed using the Dimension C-Reactive ProteinExtended Range assay method. This assay meets the AHA/CDC 2003 recommendations fordetermining patients at high risk for cardiovasculardisease. Reference: High risk CRP >3.0 mg/L 8-Vfj-768316:50 CBCD,SMEAR DIFF BAND 4 % (Normal) Range: [...] 47-70 WBC 7.2 K/mm3 (Normal) Range: 4.4-11.0 6-Wit-406135:50 COMP METABOLIC A/G 1.1 {RATIO} (Normal) Range: [...] T PROT 7.4 g/dL (Normal) Range: 6.4-8.2 1-Mmy-729727:50 ESR SED RATE 11 mm/h (Normal) Range: 0-30 0-Vjy-146126:53 ACUTE ABDOMEN, INC CHEST (MT) Radiology Report See Note (Normal) Comments: Exam Number: [id number] ACUTE ABDOMEN INCLUDING CHEST HISTORYEpigastric pain since [...] Thin prep Pap Comments: Source.............Cervical;EndocervicalLMP / Prev Treat...FOQ=622194Ez. of containers..01 CYTYC Thin Prep VialPATIENT NOT FASTINGClinical Information: ADD [id number] PERFORMED BY: [employer] (76814) [facility] [place] [address] [place] [id number] . . (Normal) DIAGNOSIS: SPRCS (Normal) Comments: [...] resulttherefore, no HPV testing was performed. . 90-Mxv-32153:28 BILAT SCRN DIGITAL & CAD Radiology Report See Note (Normal) Comments: Exam Number: [id number] BILATERAL SCREENING DIGITAL MAMMOGRAM CLINICAL INFORMATIONScreening. Bilateral [...] mammogramswere also examined with computer- aided detection software([employer] Reported By: BALBIR GATICA M.D. Plan [...] V70.0 Planned Observations LIPOPROTEIN, BLD, BY NMR (15543)Indication: Hypercholesteremia On: :44 Request HEPATIC FUNCTION PANEL (38366)Indication: Hypercholesteremia On: :44 Request Homocysteine, Plasma (58403)Indication: MTHFR mutation On: :24 Request MICROALBUMIN: CREATININE RATIO (59597) AND (49832)Indication: Hypertension, benign On: 42-Tgh-579542:01 Request URINALYSIS (20748)Indication: Hypertension, benign On: 17-Ine-110692:01 Request D-Dimer (10380)Indication: Multiple pulmonary emboli On: 1-Kbl-327809:21 Request Rapid Strep Test, Office (59474)Indication: Acute pharyngitis On: 51-Feq-612022:53 Request Homocysteine, Plasma (32825)Indication: Elevated serum homocysteine level On: 64-Qie-812106:08 Request CBC W/AUTO DIFF WBC (29187)Indication: Multiple pulmonary emboli On: 98-Pqt-073106:45 Request Homocysteine, Plasma (47930)Indication: Multiple pulmonary emboli On: :24 Request Comments: please add to labs drawn pre coag MTHFR (63907)Indication: Multiple pulmonary emboli On: :24 Request Comments: please add to labs drawn pre coag TESTOSTERONE FREE (23928)Indication: Elevated testosterone level in female On: 22-Sep-20169:52 Request METABOLIC PANEL, COMPREHENSIVE (33912)Indication: Hypercholesteremia On: 8-Yek-135339:14 Request LIPOPROTEIN, BLD, BY NMR (31300)Indication: Hypercholesteremia On: 6-Cew-979663:14 Request Cortisol,Urinary Free 24- Hour Urine (00208)Indication: Diabetes mellitus type II, controlled, with no complications On: 26-May-20168:34 Request URINALYSIS (92170)Indication: UTI (urinary tract infection) On: 52-Bwh-236740:04 Request Comments: recheck 10 days after ATB URINE DAVID CULTURE-IDENTIFICATN (91811)Indication: UTI (urinary tract infection) On: 71-Hvk-587701:03 Request Comments: recheck 10 days after ATB CBC with auto diff (84240)Indication: Diabetes mellitus type II, controlled, with no complications On: 15-Ipt-109069:14 Request LIPID PANEL (23915)Indication: Hypercholesteremia On: 46-Xyp-447376:14 Request METABOLIC PANEL, COMPREHENSIVE (82072)Indication: Diabetes mellitus type II, controlled, with no complications On: 47-Uai-054591:14 Request MICROALBUMIN: CREATININE RATIO (67599) AND (01260)Indication: Diabetes mellitus type II, controlled, with no complications On: 54-Blq-827015:14 Request Hemoglobin Glyclated (HGB A1C) (81060)Indication: Diabetes mellitus type II, controlled, with no complications On: 45-Dal-770304:14 Request METABOLIC PANEL, COMPREHENSIVE (73689)Indication: Diabetes mellitus type II, controlled, with no complications On: 66-Hzq-675680:20 Request LIPID PANEL (60605)Indication: Diabetes mellitus type II, controlled, with no complications On: :20 Request CBC W/AUTO DIFF WBC (56014)Indication: Diabetes mellitus type II, controlled, with no complications On: :20 Request MICROALBUMIN: CREATININE RATIO (93007) AND (56733)Indication: Diabetes mellitus type II, controlled, with no complications On: :59 Request METABOLIC PANEL, COMPREHENSIVE (98710)Indication: Diabetes mellitus type II, controlled, with no complications On: :59 Request LIPID PANEL (42871)Indication: Diabetes mellitus type II, controlled, with no complications On: :59 Request CBC WITH MANUAL DIFF (91593)Indication: Diabetes mellitus type II, controlled, with no complications On: :59 Request MICROALBUMIN: CREATININE RATIO (74205) AND (81432)Indication: Diabetes mellitus type 2, uncontrolled, without complications On: 93-Vhq-226517:10 Request PT (Prothrobim Time) (71936)Indication: Pre-operative examination On: 83-Duh-732196:13 Request PTT (Activated Partial Thromboplastin Time) (44292)Indication: Pre-operative examination On: 22-Hze-762127:13 Request CBC with manual diff (04172)Indication: Pre-operative examination On: 31-Qpf-958681:13 Request Metabolic Panel, Basic (03974)Indication: Pre-operative examination On: 50-Ozl-784762:11 Request Lipid Panel (55682)Indication: Hypertension, benign On: :31 Request TSH (62223)Indication: Hypertension, benign On: : Request URINALYSIS, W/ MICRO (56503)Indication: Hypertension, benign On: :31 Request MICROALBUMIN: CREATININE RATIO (54627) AND (39084)Indication: Hypertension, benign On: : Request METABOLIC PANEL, COMPREHENSIVE (64950)Indication: Hypertension, benign On: : Request LIPOPROTEIN, BLD, BY NMR (37214)Indication: Hypertension, benign On: : Request LIPID PANEL (44507)Indication: Hypertension, benign On: : Request CBC WITH MANUAL DIFF (10792)Indication: Hypertension, benign On: Request thin prep (13820) (std testing)Indication: Abdominal pain, acute, generalized On: : Request NEISSERIA (37735) (THIN PREP OBTAINED)Indication: Abdominal pain, acute, generalized On: Request CHLAMYDIA (55249) (thin prep obtained)Indication: Abdominal pain, acute, generalized On: : Request INFCT ANTGN TRICH VAGIN DIRECT PRB (56670)Indication: Abdominal pain, acute, generalized On: Request GARDNERELLA VAG, NUCLEIC ACID DIR PROBE (78332)Indication: Abdominal pain, acute, generalized On: Request NATHANIEL, NUCLEIC ACID DIRECT PROBE (30526)Indication: Abdominal pain, acute, generalized On: Request DAVID CULTURE-OTHER (58188)Indication: Abdominal pain, acute, generalized On: :27 Request CBC (Auto) (71672)Indication: Abdominal pain, acute, generalized On: : Request Metabolic Panel, Comprehensive (19819)Indication: Abdominal pain, acute, generalized On: :26 Request Urinalysis, Office (58979)Indication: Abdominal pain, acute, generalized On: 10-Qmc-167123:44 Request C-REACTIVE PROTEIN (23265)Indication: Epigastric pain On: :24 Request SED RATE ERYTHROCYTE (97038)Indication: Epigastric pain On: :24 Request METABOLIC PANEL, COMPREHENSIVE (96286)Indication: Epigastric pain On: :24 Request CBC WITH MANUAL DIFF (17620)Indication: Epigastric pain On: :23 Request Hemoglobin Glyclated (HGB A1C) (41166)Indication: Hypoglycemia On: 7-Txd-624079:21 Request Lipid Panel (41199)Indication: Hypercholesteremia On: 9-Acw-940171:21 Request Planned Encounters Medical; 3 Month FU - On: 26-Oct-2018 13:30 [facility] Jeannie LIANG, Alycia Jeannie LIANG, Alycia Planned Procedures TDAP VACCINE >7 IM (52122)By: On: 18-Jul-2018 Intent Zeinab Reddy MD US DOPPLER CAROTID BILATERAL On: 18-Jul-2018 Intent (13538)By: Zeinab Reddy MD DEXA SCAN AXIAL SKELETON ([id number])By: On: 18-Jul-2018 Intent Zeinab Reddy MD SCREENING DIGITAL TOMOSYNTHESIS OF On: 18-Jul-2018 Intent BREAST (06246)By: Zeinab Reddy MD SCREENING DIGITAL TOMOSYNTHESIS OF On: 13-Jul-2017 Intent BREAST (45568)By: Zeinab Reddy MD EKG (86997)By: Zeinab Reddy MD On: 21-Nov-2016 Intent Ultrasound - PelvisBy: Barry GONZALEZ, On: 24-Oct-2016 Intent Zeinab Varma Comments: copy to Dr. mcdaniel. CT - Abdomen (IV Contrast Needed)By: On: 26-Aug-2016 Intent Zeinab Reddy MD Comments: attention adrenals. Flu Vaccine (Quadrivalent) 39210Pe: On: 04-Jul-2016 Intent Zeinab Reddy MD US DOPPLER CAROTID BILATERAL On: 26-May-2016 Intent (14668)By: Zeinab Reddy MD DEXA SCAN AXIAL SKELETON (29408)By: On: 26-May-2016 Intent Zeinab Reddy MD BILATERAL MAMMOGRAMS (49673)By: On: 26-May-2016 Intent Zeinab Reddy MD Nuclear Stress Test/Stress On: 05-Aug-2014 Intent SPECT/TreadmillBy: Carlotta Dennis CNP, CNP, Alycia Carotid DopplerBy: Zeinab Reddy MD On: 06-Jun-2014 Intent M Comments: dizzy MRI - Brain (IV Contrast Needed)By: On: 06-Jun-2014 Intent Zeinab Reddy MD Holter Monitor 24 hrsBy: Barry GONZALEZ, On: 06-Jun-2014 Intent Zeinab Varma EKG (55557)By: Zeinab Reddy MD On: 02-Jun-2014 Intent Comments: see scanned document of test done to see results reviewed today with patient MAMMOGRAM, SCREENING, BOTH BREASTS On: 21-Jan-2014 Intent (74372)By: Zeinab Reddy MD Eprescribed prescriptions (G8553)By: On: 21-Jan-2014 Intent Zeinab Reddy MD Aerosol Treatment (29491)By: Jacy On: 07-Nov-2013 Intent Tracy MURPHY Comments: after aerosol - more a/e less inspir noise but lots of exp noise Spirometry (66413)By: Jacy MURPHY, On: 07-Nov-2013 Intent Tracy Comments: poor effort and difficult time diong with coughjing -- restriction shown Eprescribed prescriptions (G8553)By: On: 07-Nov-2013 Intent Tracy Louie DO Aerosol Treatment (93901)By: Jeannie On: 24-Sep-2012 Intent Carlotta LIANG CNP, Mary E Eprescribed prescriptions (G8553)By: On: 12-Jun-2012 Intent Tania Ledbetter LPN IMMUNIZ ADMNIN, 1 VAC, SNGL/COMBO On: 12-Jun-2012 Intent (87843)By: Tania Ledbetter LPN FLU VAC, SPLIT, >3 YEARS, INTRAMUSC On: 12-Jun-2012 Intent (71176)By: Tania Ledbetter LPN ELECTROCARDIOGRAM, COMPLETE (ECG) On: 10-Apr-2012 Intent (31516)By: Carlotta Dennis CNP, CNP, Mary E Spirometry (88953)By: Dwight MURPHY, On: 10-Jan-2011 Intent Valarie A Comments: done km- good effort and curve- mod obst Solu -Medrol Injection, 125 mg On: 10-Jan-2011 Intent (J2930)By: Jessica Alba LPN Comments: 2ml given im rt hip lotobjk2 exp 1-14 Pulse Oximetry (68134)By: Dwight MURPHY, On: 10-Jan-2011 Intent Valarie A Comments: 96% Aerosol Treatment (47375)By: Dwight On: 10-Jan-2011 Intent Valarie MURPHY Comments: done with albuterol 0.83%pt tolerated well MAMMOGRAM, SCREENING, BOTH BREASTS On: 30-Nov-2010 Intent (76060)By: Zeinab Reddy MD MAMMOGRAM, SCREENING, BOTH BREASTS On: 23-Jul-2009 Intent (55968)By: Zeinab Reddy MD EKG (35166)By: Zeinab Reddy MD On: 23-Jul-2009 Intent Radiology - Abdomen SeriesBy: Jacy On: 19-Dec-2008 Intent DO Tracy TD Injection , IM (73368)By: On: 21-Jan-2008 Intent Zeinab Reddy MD MAMMOGRAM, SCREENING, BOTH BREASTS On: 21-Jan-2008 Intent (41597)By: Zeinab Reddy MD Planned Medications INJECTION, METHYLPREDNISOLONE [...] for Tdap vaccination (Renamed from Need for sxzrlqlhxl-uzvzqfs-wqtkzpzrg (Tdap) vaccine, adult/adolescent) [facility] [...] Patient has been compliant with instructions. Current ks End: 18-Jan-2015 22:33 dication use: no side [...] not using any method of contraception at [facility] End: 30-Nov-2010 15:39 s time. Patient [...] (Renamed from Hypercholesteremia (272.0)), Sleep disorder (780.50), [facility] V70.0 [facility] Payers Aliza bean guarantor
--- OUTSIDE RECORDS SUMMARY | 2018-10-10 11:27 | XMS RPT_ITS ---
:1955 Author Organization OH[facility] Care Team Providers Name Role Phone Karson Kumarl Attending Unavailable Bonezzi, Zeinab Referring Unavailable Bonezzi, Zeinab Attending Unavailable Bonezzi, Zeinab Referring Unavailable Bonezzi, Zeinab Primary Care Unavailable Ojsé, [place] Attending Unavailable Bonezzi, Zeinab Referring Unavailable Bonezzi, Zeinab Primary Care Unavailable Bonezzi, Zeinab Consulting Unavailable Bonezzi, Zeinab Attending Unavailable Bonezzi, Zeinab Referring Unavailable Bonezzi, Zeinab Primary Care Unavailable PROBLEMS PROBLEMS DATE TYPE CONDITION / CODE ATTENDING STATUS SOURCE 09/03/2018 Unknown R07.9 - Chest José, [place] Active [place] pain, unspecified Community / R07.9(ICD-10) Hospital Repository PROCEDURES PROCEDURES No Procedure Records FoundRESULTS RESULTS STRESS REPORT Observed: 08/15/2018 Status: F Source: [place] 10:44 AM [facility] REPOSITORY [facility] Cardiovascular Services [address] [place] [address] MR#: [id number] Acct: [id number] Name: LYN HUFF Rep #: [id number] : 1955 63 From: Terrance Kumar MD Primary Care: Zeinab Reddy MD Status: REG CLI Ordering Dr: Sex: F C Stress Test Report Exercise myocardial perfusion stress test. 63-year-old lady with a history of chest pain. Resting EKG demonstrates normal sinus rhythm with a rate of 73 bpm normal intervals noted resting blood pressure 132/78 mmHg. The patient exercised according to regular Angel protocol for total duration of 5 minutes and 16 seconds completing 2 minutes and 16 seconds of stage II of the Angel protocol the maximum heart rate attained was 142 bpm which was 89% maximum predicted heart rate the maximum workload was 7 metabolic equivalents. The patient maintained sinus rhythm throughout the recording. At rest there were no ST or T wave changes noted suggest ischemia peak exercise nonspecific ST-T wave changes occasional premature ventricular complexes and upsloping EKG changes were noted with normally the criteria for ischemia. The test was terminated due to leg fatigue. No chest pain was noted. The resting blood pressure was 120 2/78 with a peak blood pressure 156/76. Myocardial perfusion protocol. 14.5 mCi of technetium 99m sestamibi was injected at rest. The patient exercised according to regular Angel protocol for 5-1/2 minutes. At peak exercise 44.8 mCi of technetium 99m sestamibi was injected stress images were obtained stress and rest images were reconstructed and compared in the short axis vertical long and horizontal long axis. Gated images were also obtained per Perfusion SPECT analysis. Review of the stress images demonstrated normal uptake of tracer noted in all areas of the myocardium. The resting images similarly demonstrated normal uptake of tracer noted in all areas of the myocardium. No areas of reversibility are noted suggest ischemia no previous infarct is noted. Gated SPECT analysis: The gated ejection fraction is noted to be 81%. Conclusion: Normal exercise myocardial perfusion stress test at a moderate workload. Preserved ejection fraction. 08/15/18 1044 <Electronically signed by Terrance Kumar MD> Date Terrance Kumar MD CC: Zeinab Reddy MD Date Dictated: 08/15/181041 Date Transcribed: 08/15/181041 Net Making Supervisor: [place] Signed CAROTID DUPLEX Observed: 08/01/2018 Status: F Source: [place] ULTRASOUND 7:28 AM [facility] REPOSITORY [facility] Cardiovascular Services [address] [place] [address] Carotid Duplex Ultrasound 07/26/18 1415 MR#: [id number] Acct: [id number] Name: LYN HUFF Rep #: [id number] : 1955 63 From: Samuel Johnston MD Attending Dr: Zeinab Reddy MD Status: REG CLI Ordering Dr: Zeinab Reddy MD Date: 07/26/18 Location: CT Sex: F C Admitted: Reason For Study: [...] left internal carotid artery. There is intimal thickening but no significant atherosclerotic plaque noted in the left external carotid artery. Antegrade flow is noted in the left vertebral artery. Procedure Carotid Duplex 00425. Exam performed in department. Interpretation Summary Mild (<50%) stenosis right extracranial internal carotid. Mild (<50%) stenosis left extracranial internal carotid. Flow within the vertebral arteries is antegrade bilaterally. Ordering Physician: Zeinab Reddy Referring Physician: Zeinab Reddy Performed By: More Craig RVT and Student 08/01/1828 Date Samuel Johnston MD CC: Zeinab Reddy MD Date Dictated: 07/26/18 1415 Date Transcribed: 08/01/18727 Net Making Supervisor: Signed LIMITED CHEST CT Observed: 07/26/2018 Status: F Source: [place] W/CCTA 2:40 PM [facility] REPOSITORY [facility] Imaging Services [address] [place] [address] w/CCTA MR#: [id number] Acct: [id number] Name: LYN HUFF Rep #: [id number] : 1955 F 63 From: Harjeet Mullen MD PCP: Zeinab Reddy MD Status: REG CLI Study: Limited Chest CT w/CCTA Date of Exam: 07/26/18 Exam# [id number] Ordering Dr: Zeinab Reddy MD STUDY: CT [...] for this CT. COMPARISON: None. FINDINGS: The lungs are normal. There is no demonstrated pleural abnormality. There are calcifications of the coronary arteries. There are multiple small lymph nodes within the mediastinum, which are normal in size and morphology most compatible with reactive lymph hyperplasia. Normal hilar regions. Normal unenhanced pulmonary arteries. Normal aorta arch and descending thoracic aorta. There are degenerative changes of the thoracic spine. There is no demonstrated abnormality of the visualized upper abdomen. CT/Limited Chest CT w/CCTA IMPRESSION: No acute abnormality is seen. Electronically Signed: Harjeet Mullen MD at 14:06 EST Tel [phone], Service support , CC: Zeinab Reddy MD Net Making Supervisor: Signed ALLERGIES ALLERGIES DATE TYPE / CODE NAME / CODE REACTION SEVERITY SOURCE 05/22/2017 Drug No Known Unknown [facility] Allergy/4160 Allergies/F00 [facility] 74140(SNOMED [id number](RXNOR Repository CT) M) ENCOUNTERS ENCOUNTERS ADMIT/DISCHARGE ACCOUNT ADMITTING ENCOUNTER LOCATION SOURCE NUMBER CLASS 08/15/2018 [id number] Ambulatory BMSBuilding:W Karen 8 [facility] Repository 08/15/2018 [id number] Ambulatory [place] 4 [facility] ing:[facility] Repository 07/28/2018 [id number] Ambulatory BMSBuilding:B Karen 1 [facility] Repository 07/26/2018 [id number] Ambulatory [place] 3 [facility] ing:CT Repository PAYERS PAYERS ENCOUNTER GUARANTOR PAYER SUBSCRIBER SOURCE 08/15/2018 LYN Clemons Primary [address] [id number] Insurance:AETNAPolicy BOYDDOB: Community CARD[facility]AL CTAPT [place]: [id number] [id number] Repository [address]Flb: (330) Date:[id number] [phone] (HP) [id number] [place] [address]TN: 08/15/2018 Secondary NOT GIVENUNK Karen Insurance:SELF PAY [facility] Number: Effective Repository Date:2018-08-15 08/15/2018 LYN Clemons Primary LYN [place] [id number] Insurance:AETNAPolicy BOYDDOB: Community CARDINAL CTAPT Number: [id number], [place] [id number] Repository [address]Mcr: (330) Date:[id number] [phone] (HP) [id number] [place] [address]HW: 08/15/2018 Secondary NOT GIVENUNK Karen Insurance:SELF PAY [facility] Number: Effective Repository Date:2018-08-08 07/28/2018 LYN Clemons Primary LYN [place] [id number] Insurance:AETNAPolicy BOYDDOB: Community CARDINAL CTAPT Number: [id number], [place] [id number] Repository [address]Iug: (330) Date:[id number] [phone] (HP) [id number] DADADESTINI [address]IT: 07/28/2018 Secondary NOT GIVENUNK Karen Insurance:SELF PAY [facility] Number: Effective Repository Date:2018-07-28 07/26/2018 LYN L Primary LYN Clemons [place] [id number] Insurance:AETNAPolmarshally BOYDDOB: Community CARDINAL CTAPT Number: [id number], [place] [id number] Repository [address]Cjo: 330) Date:0239-30-00EF [phone] [id number] DESTINI HARMAN [address]DQ: 07/26/2018 Secondary NOT GIVENKELSI [place] Insurance:SELF PAY [facility]: Effective Repository Date:2018-07-18
== END ==
PROVIDERS: Family Provider Internal Medicine; PCP Internal Medicine; Referring Provider Internal Medicine; Visit Provider Internal Medicine
DX: R07.9 Chest pain, unspecified (principal)
CPT/HCPCS: 78452; 93017; A9500; A4216

== ENCOUNTER → 2019-01-16 15:30 | Outpatient (CLI) | payer OTHER, SELFPAY ==
--- NOTE | 2019-01-16 15:33 | VDLE_ITS ---
Reason For Study: LLE pain RIGHT LEFT CFV is compressible, spontaneous, phasic, GSV is normal. competent and demonstrates normal CFV is compressible, spontaneous, phasic, augmentation. competent, and demonstrates normal Procedure augmentation. Exam performed in department. FV is compressible, spontaneous, phasic, The study was technically difficult. competent and demonstrates normal A preliminary report was called and/or faxed augmentation. to Dr. Louie/Carlotta Dennis @ 4 pm @ POP V is compressible, spontaneous, phasic, . competent and demonstrates normal augmentation. T/P Trunk is compressible. PTV is compressible. LT PerV is compressible. Gastrocnemius V and Soleus V are compressible. Interpretation Summary Deep veins of the left lower extremity are patent and compressible segmentally. There is no evidence of left lower extremity deep vein thrombosis. Valvular competence appears intact within the proximal deep venous system on the left . The left greater saphenous vein appears patent and compressible segmentally. Ordering Physician: Carlotta Dennis Referring Physician: Carlotta Dennis Performed By: Bree Heredia, BERONICA, RVT
--- NOTE | 2019-01-16 15:55 | RAD_ITS ---
STUDY: X-RAY - LEFT KNEE REASON FOR EXAM: Female, 63 years old. Pain and swelling TECHNIQUE: 4 view(s) of the knee. COMPARISON: None. FINDINGS: Normal visualized distal femur. Normal visualized proximal tibia and fibula. Normal proximal tibiofibular articulation. Normal medial femorotibial compartment. Normal lateral femorotibial compartment. Normal patellofemoral articulation. The soft tissue structures are unremarkable. RAD/Knee 4 or More Views IMPRESSION: Normal x-ray examination of the knee. Electronically Signed: Manuel Hobbs MD at 16:19 EDT Tel , Service support ,
== END ==
PROVIDERS: Family Provider Internal Medicine; PCP Internal Medicine; Referring Provider Nurse Practitioner; Visit Provider Nurse Practitioner
DX: M25.562 Pain in left knee (principal); M79.606 Pain in leg, unspecified
CPT/HCPCS: 73564; 93971

== ENCOUNTER → 2019-01-31 10:08 | Outpatient (CLI) | payer OTHER, SELFPAY ==
--- NOTE | 2019-01-31 10:16 | MRI_ITS ---
STUDY: MRI LEFT KNEE REASON FOR EXAM: Female, 63 years old. Posterior knee pain for 2 weeks. TECHNIQUE: Standardized fat and water weighted pulse sequences were obtained in all 3 orthogonal planes. COMPARISON: X-rays dated January 16, 2019. FINDINGS: Grade 3/4 cartilage loss of the patellofemoral articulation. Medial compartment grade 3 cartilage loss. Lateral compartment articular cartilage preserved. No acute fracture line. No dislocation. No acute cortical destruction. Lateral meniscus intact. Medial meniscus body early horizontal cleavage tear and posterior horn radial tear (sagittal images 8 through 10 series 4) with meniscal degeneration. Mild popliteus muscle strain (axial image 26 series 2). Anterior cruciate ligament degeneration without discrete tear. Reactive bone marrow/contusion at the tibial eminence (coronal image 18 series 6). Normal posterior cruciate ligament. Moderate volume joint effusion. Small popliteal cyst. Mild soft tissue swelling. Small varicose veins. Normal medial collateral ligamentous complex (MCL). Normal distal semimembranosus, gracilis and semitendinosus tendons. Normal proximal tibiofibular articulation. Normal lateral collateral (fibular) ligament. Normal popliteus tendon. Normal biceps femoris tendon. Normal medial and lateral patellar retinaculum. Normal quadriceps tendon. Normal patellar tendon. Normal Hoffa's fat pad. MRI/Lower Ext Joint Only (Routine) IMPRESSION: Medial meniscus body early horizontal cleavage tear and posterior horn radial tear ACL degeneration without discrete tear Patellofemoral articulation moderate cartilage loss Medial compartment and moderate cartilage loss Mild popliteus muscle strain Tibial eminence bone marrow edema/contusion Moderate volume joint effusion, small popliteal cyst and mild soft tissue swelling Electronically Signed: Jose Gonzalez DO at 11:21 EDT Tel , Service support ,
== END ==
PROVIDERS: Family Provider Nurse Practitioner; PCP Nurse Practitioner; Referring Provider Nurse Practitioner; Visit Provider Nurse Practitioner
DX: M25.562 Pain in left knee (principal)
CPT/HCPCS: 73721

== ENCOUNTER 2019-01-31 13:02 | Outpatient (RCR) | payer OTHER, SELFPAY ==
--- NOTE | 2019-01-31 14:37 | HP.PTEVAL_ITS ---
Patient's Visit Information LYN HUFF is a 63 year old F referred to Physical Therapy by Carlotta Dennis NP with a diagnosis of Left Knee Pain. Date of Evaluation: 01/31/19 Physical Therapist: Karen Galo DPT - Visit Plan Frequency: 2x /Week Duration: 4 Weeks Plan: Hold pending MRI results - Subjective Findings: Patient reports left knee- 3 weeks ago she was sitting down and was going to get up and it felt weird. Pain was located in the back- the weekend was not to bad and then when she went to get into her car on Monday and Monday it was a 10/10 and she could barely walk. Went to the MD after work and she did a dopplar and x-ray- history of blood clots- dopplers were negative- and x-ray was fine. Had an MRI this am. Pain is located along the hamstring and top of the calf. Pain does radiate into the hip. Had an MRI this AM. Follows up with the MD the but maybe before that depending on the MRI. Does not have an orthopaedic doctor. Does not feel that the knee is getting better. The pain is better but it still really painful. Describes the pain as sharp/shooting but can also be throbbing like a toothache. Agg:being up on it, sitting down and getting back up Eases: ibuprofen. 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 Sleep: not at this time- sleeps all over the place. PMHx: DM, HTN, asthma, RTC repair. Meds: victosa, lysinopril. - Objective Posture: FH, RS, Increased kyphosis. Gait: antalgic- decreased stance on the left LE with poor heel/toe pattern- No AD. Stairs: asc/desc non recip with 2 HR and significant discomfort. HR/TR: able with UE A. SLS: WS but unable to remove hands from wall for balance. Palpation: tender along posterior joint, hamstrings and calf. ROM: 10-90 degrees with pain at end ranges. Strength: Ankle: 5/5, Knee: extn: 4+/5, Flexion: 4-/5 with pain. Hip: 4/5, Core: poor. Flex: HS: severe with pain, Gastroc: severe with pain - Goals Goal 1:: Patient will be I with HEP and progression Goal Time Frame: 4-6 Weeks Goal 2:: Patient will demo 0-130 degrees of movement in the left LE Goal Time Frame: 4-6 Weeks Goal 3:: Patient will ambulate <300 feet with a normalized gait pattern Goal Time Frame: 4-6 Weeks Goal 4:: Patient will asc/desc 8 stairs recip with 1 HR and good control Goal Time Frame: 4-6 Weeks - Rehabilitation Potential Physical Therapy Diagnosis: Patient presents with hypomobility- she has decreased ROM, strength, flex and muscular endurance leading to abnormal gait and increased pain with ADL's. Rehabilitation Potential: Fair - Anticipated Interventions Patient/Client Instruction: Educate patient on: Benefits of Fitness Program Therapeutic Exercise to Include: Strength training, Endurance training, Balance training, Agility training, Body mechanics, Postural training, Flexibilty training, Gait and locomotor training, Dynamic Lumbar Stabilization For the Purpose of:: To improve muscle performance and motor function TENS: Yes Cryotherapy (ice pack, ice massage): Yes Thermo therapy (hot pack): Yes Ultrasound (thermal/non thermal): Yes Thank you for the opportunity to evaluate your patient. For Medicare and Medicare HMO plans, please review the plan of care and approve it. It will need to be FAXED BACK to us at [phone] for Medicare purposes. For Medicare only, by signing this I certify the plan of care. Please let me know if there are questions or concerns regarding this plan of care. Physician Signature: Date:
--- NOTE | 2019-05-21 11:39 | HP.PT.NRP ---
HP - Discharge Summary (1) - Patient Information LYN HUFF was seen in my office for initial evaluation on 01/31/19. The following Plan of Care was established for this patient: Initial Frequency: 2x /Week Initial Duration: 4 Weeks - Anticipated Interventions Patient/Client Instruction: Educate patient on: Benefits of Fitness Program Therapeutic Exercise to Include: Strength training, Endurance training, Balance training, Agility training, Body mechanics, Postural training, Flexibilty training, Gait and locomotor training, Dynamic Lumbar Stabilization For the Purpose of:: To improve muscle performance and motor function TENS: Yes Cryotherapy (ice pack, ice massage): Yes Thermo therapy (hot pack): Yes Ultrasound (thermal/non thermal): Yes This patient was last seen in our office . Pertinent comments regarding their Physical therapy will appear below: At this point I will be discontinuing this patient from physical therapy. I would be happy to see this patient again in the future if found appropriate by the physician. Thank you! Karen Galo DPT
== END 2019-01-31 19:00 | disposition home or self-care (01) ==
LOC: PT 13:02
PROVIDERS: Family Provider Internal Medicine; PCP Internal Medicine; Referring Provider Nurse Practitioner; Visit Provider Nurse Practitioner
DX: M25.562 Pain in left knee (principal)
CPT/HCPCS: 97161

== ENCOUNTER 2019-04-25 18:00 | Outpatient (RCR) | payer OTHER, SELFPAY ==
[2019-02-28 09:11] VITALS: BMI 39.9
--- NOTE | 2019-03-04 17:56 | HP.PTEVAL_ITS ---
Patient's Visit Information LYN HUFF is a 63 year old F referred to Physical Therapy by Karmen Benitez DO with a diagnosis of L knee OA and medial meniscal repair. Date of Evaluation: 03/04/19 Physical Therapist: Ryan Nicole PT, ATC - Visit Plan Frequency: 1x/Week Duration: 2 Weeks Plan: Aquatic therapy consisting of L LE strengthening and core stab ex's - Subjective Findings: Pt reports her L knee has been sore for 1 1/2 months. Pt reports she was sitting at the time and attempted to stand when she felt something tear in her L knee. Pt reports she went to the [facility] and recieved xrays and an MRI which showed OA and a tear in the L medial meniscus. Pt reports she received a cortisone injection one week ago which resulted in a significant decrease in her pain. Pt reports prior to her injection, she was in severe pain and was barely able to walk. No sleep difficulty secondary to pain. 0/10 pain at rest, 3/10 at worst. - Pain L knee Pain Intensity (Out of 10): 0 Pain Intensity Range: 3 - Objective Neuro: B LE sensation is WNL to light touch. Palpation: Pt is very tender on the medial joint line. No obvious deformity. Girth at joint line: R knee 26 cm, L knee 30 cm. ROM: L knee 0-110 degrees, R knee 0-118 degrees. MMT: L knee 3/5 and painful with all testing. R knee 5/5 throughout - Goals Goal 1:: I with HEP in 1-2 visits Goal Time Frame: 2 Weeks - Rehabilitation Potential Physical Therapy Diagnosis: Pt has L knee pain, weakness, and limited ROm secoandary to deg changes in L knee Rehabilitation Potential: Good - Anticipated Interventions Patient/Client Instruction: Educate patient on: Condition, Plan of Care For the Purpose of:: To decrease pain, To increase ROM, To improve muscle performance and motor function Therapeutic Exercise to Include: Strength training, Endurance training, Flexibilty training, In an aquatic setting, Active ROM, Dynamic Lumbar Stabilization For the Purpose of:: To decrease pain, To increase ROM, To improve muscle performance and motor function Thank you for the opportunity to evaluate your patient. For Medicare and Medicare HMO plans, please review the plan of care and approve it. It will need to be FAXED BACK to us at [phone] for Medicare purposes. For Medicare only, by signing this I certify the plan of care. Please let me know if there are questions or concerns regarding this plan of care. Physician Signature: Date:
--- NOTE | 2019-04-25 18:16 | HP.PTDCSUM ---
HP - PT D/C Summary It has been my pleasure to treat LYN HUFF under orders from Karmen Benitez DO, for the diagnosis of L knee OA and medial meniscal repair for a total of 4 visit(s). Discharge Date: Please see the following information for a summary of their discharge status. - Subjective Subjective: Mild pain this date. Pt is ready for discharge. Feels like the cortisone is wearing off - Pain L knee Pain Intensity (Out of 10): 2 - Overall Improvement % Improvement: 80 - Objective Objective/Function: Pt is I with HEP. Rx goals achieved - Goals Goal 1:: I with HEP in 1-2 visits Goal Progress: Goal Met - Plan Plan: Discharge to independent - D/C Information If there are questions or concerns regarding this patient's physical therapy, please feel free to call me at [phone]. Thank you for the referral of this patient. Sincerely, Ryan Nicole, PT, ATC
== END 2019-04-25 19:00 | disposition home or self-care (01) ==
LOC: PT 18:00
PROVIDERS: Family Provider Internal Medicine; PCP Internal Medicine; Referring Provider Orthopaedic Surgery; Visit Provider Orthopaedic Surgery
DX: M17.12 Unilateral primary osteoarthritis, left knee (principal); S83.242D Other tear of medial meniscus, current injury, left knee, subsequent encounter
CPT/HCPCS: 97113; 97161; 97530

== ENCOUNTER → 2020-02-22 10:51 | Outpatient (CLI) | payer OTHER, SELFPAY ==
[2019-02-28 09:11] VITALS: BMI 39.9
[2020-02-22 11:48] LABS: ALB/GLOB Ratio 0.9 RATIO (0.9-2.4); AST(SGOT) 13 U/L (15-37); Alanine Aminotransfer ALT/SGPT 19 U/L (13-56); Albumin, Serum 3.7 g/dL (3.2-5.0); Alkaline Phosphatase 113 U/L (45-117); Anion Gap 5 (5-15); BUN 10 mg/dL (7-18); BUN/Creat Ratio 13.6 RATIO (10-20); Calcium,Total 9.3 mg/dL (8.5-10.1); Chloride 107 mmol/L (98-107); Cholesterol 255 mg/dL (200); Creatinine, Serum 0.74 mg/dL (0.55-1.02); EST Glomerular Filtration Rate 85 mL/min (>60); Est Glom Filt Rate - Afr Amer 103 mL/min (>60); Globulin 3.9 g/dL (2.2-4.2); Glucose 111 mg/dL (74-106); High Density Lipoprotein 66 mg/dL; Potassium 4.7 mmol/L (3.5-5.1); Protein, Total 7.6 g/dL (6.4-8.2); Sodium Level 142 mmol/L (136-145); Thyroid Stim Hormone (TSH) 1.37 uIU/mL (0.358-3.74); Triglycerides 165 mg/dL; Very Low Density Lipoprotein 33 mg/dL (5-40)
[2020-02-24 09:39] LABS: Vitamin D,25 Hydroxy 26.8 ng/mL
== END ==
PROVIDERS: PCP Internal Medicine; Referring Provider Nurse Practitioner; Visit Provider Nurse Practitioner
DX: E78.00 Pure hypercholesterolemia, unspecified (principal); E55.9 Vitamin D deficiency, unspecified; E11.9 Type 2 diabetes mellitus without complications
CPT/HCPCS: 36415; 80053; 80061; 82306; 84443

== ENCOUNTER → 2020-02-28 13:52 | Outpatient (CLI) | payer OTHER, SELFPAY ==
[2019-02-28 09:11] VITALS: BMI 39.9
--- NOTE | 2020-02-28 13:55 | VDLE_ITS ---
Reason For Study: PAIN Procedure LEFT Exam performed in department. GSV is normal. A preliminary report was called and/or faxed CFV is compressible, spontaneous, phasic, to Carlotta Dennis. competent, and demonstrates normal augmentation. FV is compressible, spontaneous, phasic, competent and demonstrates normal augmentation. POP V is compressible, spontaneous, phasic, competent and demonstrates normal augmentation. T/P Trunk is compressible. PTV is compressible. LT PerV is compressible. Interpretation Summary Deep veins of the left lower extremity are patent and compressible segmentally. There is no evidence of left lower extremity deep vein thrombosis. Valvular competence appears intact within the proximal deep venous system on the left . The left great saphenous vein appears patent and compressible segmentally. Ordering Physician: Carlotta Dennis Referring Physician: BERTHA VICKERS Performed By: Hanna Worrell, BERONICA, RVT
== END ==
PROVIDERS: PCP Internal Medicine; Referring Provider Nurse Practitioner; Visit Provider Nurse Practitioner
DX: M79.605 Pain in left leg (principal)
CPT/HCPCS: 93971

== ENCOUNTER 2020-03-16 14:40 | Emergency (ER) | payer OTHER, SELFPAY ==
[2019-02-28 09:11] VITALS: BMI 39.9
[2020-03-16 14:41] VITALS: BP 174/77; PULSE 95; RESP 18; TEMP 36.4; O2SAT 94; BMI 39.9
--- NOTE | 2020-03-16 16:12 | EKG12_ITS ---
Test Reason : ALLERGIC REACTION Blood Pressure : / mmHG Vent. Rate : 067 BPM Atrial Rate : 067 BPM P-R Int : 126 ms QRS Dur : 088 ms QT Int : 420 ms P-R-T Axes : 044 044 056 degrees QTc Int : 443 ms Normal sinus rhythm Normal ECG Confirmed by JOSH WYNNE ([id number]), book editor MEGAN DAHL ([id number]) on 03/19/2020 11:53:13 AM Referred By: JENNY Confirmed By:JOSH WYNNE
--- NOTE | 2020-03-16 16:13 | ED.DCSUM_ITS ---
History of Present Illness Chief Complaint: Allergic Reaction Informant: Patient Onset: Days Context: Gradual Onset Current Severity: Mild Maximum Severity: Moderate Narrative: Patient presents with concerns for side effects from starting citalopram. She started this medication on either the or the of this month. Over the past 3 or 4 days she has noted shocklike sensations and some intermittent confusion. This is in a list of possible side effects that she was given. She states that shocklike sensation started in her legs and moved up her body. She describes a burning sensation in her chest since last evening. States her body feels hot as if she has a fever but she does not. She took her last dose of citalopram yesterday morning. - Past Medical History (1) Pulmonary embolism Status: Chronic (2) Depression Status: Chronic (3) Diabetes type 2, controlled Status: Chronic (4) Hypertension Status: Chronic (5) Vitamin D deficiency Status: Chronic Past Medical History - Allergies and Home Meds Allergies/Adverse Reactions: Allergies No Known Allergies Allergy (Verified 03/16/20 14:43) Primary Care Physician: Tracy Louie DO [Primary Care Provider] - Prior records reviewed: Yes Surgical History: appendectomy, cholecystectomy, rotator cuff repair, - - abdominal cyst Smoking Status: Never smoker - Family History Paternal Family History: Reports: Cancer, Heart Disease - Her father had quadruple bypass surgery Maternal Family History: Reports: Heart Disease - Mother had triple bypass surgery and she had KS in her 60s Sibling Family History: Reports: Cancer - multiple siblings with cancer. Brother with cancer. b, Heart Disease - Her younger sister had heart disease and she has lupus. Heart and her brother had heart surgery at the age of 7 years, progressively congenital heart disease Her younger brother had mild heart disease, - - Sister - lupus. Review of Systems General: Denies: Chills, Fever Eyes: Denies: Visual changes - bilaterally ENT: Denies: Bilateral ear pain Cardiovascular: Reports: Chest pain - Burning sensation in chest Respiratory: Denies: Dyspnea, Cough Gastrointestinal: Denies: Abdominal pain, Nausea, Vomiting, Diarrhea Musculoskeletal: Denies: Neck pain, Back pain Neurological: Reports: Parasthesia - Shocklike sensation Hematologic: Denies: Easy bruising, Easy bleeding Allergy: Denies: Uticaria Physical Exam Vital Signs/Narrative: Vital Signs Temp Pulse Resp BP Pulse Ox 03/16/20 14:41 97.6 F L 95 18 174/77 H 94 Inital Vital Signs reviewed: Yes General: Well nourished, Well developed Head: Normocephalic ENT: Moist mucous membranes Neck: Supple Cardiovascular: Regular rate, Regular rhythm Respiratory: No distress, CTA bilaterally, Chest nontender Abdomen: Soft, Nontender Back: Nontender Extremities: Nontender Skin: Normal color, No rash Neurological: Alert, Oriented x3, Normal Strength, Normal Sensation Psychological: Normal affect Diagnostic/Tx/Re-eval Impressions Chest X-Ray 03/16/20 16:45 IMPRESSION: Normal x-ray examination of the chest. Electronically Signed: Delano Guerrero, at 17:02 EDT Tel , Service support , 03/16/20 16:45 Chest 1 View (Portable) [RAD] Stat Laboratory Results 03/16/20 03/16/20 16:40 16:40 WBC 10.7 RBC 4.60 Hgb 14.4 Hct 42.3 MCV 92.0 MCH 31.3 MCHC 34.0 RDW Std Deviation 43.7 RDW Coeff of [place]ong 13.1 Plt Count 297 MPV 9.2 Immature Gran % (Auto) 0.300 Neut % (Auto) 68.3 Lymph % (Auto) 23.6 [place] % (Auto) 6.5 Eos % (Auto) 0.9 Baso % (Auto) 0.4 Absolute Neuts (auto) 7.3 Absolute Lymphs (auto) 2.53 Nucleated RBC % 0 Sodium 141 Potassium 4.1 Chloride 109 H Carbon Dioxide 25.0 Anion Gap 7 BUN 12 Creatinine 0.68 Estim Creat Clear Calc 67.84 Est GFR (MDRD) Af Amer 112 Est GFR (MDRD) Non-Af 92 BUN/Creatinine Ratio 17.5 Glucose 91 Calcium 9.3 Troponin I < 0.015 - EKG Initial EKG Interpretation: Sinus Rhythm - Sinus at 67 with no acute ischemia. - Medical Decision Making Patient is resting comfortably on repeat evaluation. I did speak with Dr. Louie. Patient is to stop her citalopram at this time. As long as her symptoms subside she can follow-up on 26 March as scheduled. If she continues to have symptoms or anything worsens she is to call her primary care doctor. Patient voices understanding and agreement. ED Disposition - Plan for ED Patient: Disposition: Home or Assisted Living Diagnosis: Medication side effect Instructions: ED ADVERSE DRUG REACTION Allergic Referrals: Tracy Louie DO [Primary Care Provider] - Keep Roel appointment
[2020-03-16] MEDS: 0.9% Normal Saline 1,000 ML 150 ML IV (16:39)
[2020-03-16 16:40] VITALS: BP 156/82; PULSE 70; RESP 18; O2SAT 96
--- NOTE | 2020-03-16 16:45 | RAD_ITS ---
STUDY: X-RAY CHEST REASON FOR EXAM: Female, 64 years old. ALLERGIC REACTION, STARTED CITALOPRAM 2 WEEKS AGO, HAVING SIDE EFFECTS FROM MEDICATION TECHNIQUE: Portable chest COMPARISON: 02/20/2017 FINDINGS: The lungs are clear and expanded. There is no demonstrated pleural abnormality. There is no interval change. Normal size heart. Normal mediastinum and juana. Normal visualized pulmonary arteries. Normal visualized aortic arch and descending thoracic aorta. Normal visualized thoracic spine. Normal visualized ribs, clavicles, and shoulders. There is no demonstrated abnormality of the visualized soft tissue structures of the upper abdomen. RAD/Chest 1 View (Portable) IMPRESSION: Normal x-ray examination of the chest. Electronically Signed: Delano Guerrero, at 17:02 EDT Tel , Service support ,
[2020-03-16 17:01] LABS: Absolute Lymphocyte Count 2.53 X10^3/uL (0.83-4.51); Absolute Neutrophil Count 7.3 X10^3/uL (2.0-7.7); Basophil# 0.04 X10^3/uL; Basophil% 0.4 % (0-1); Eosinophils% 0.9 % (0-5); Hematocrit 42.3 % (37-47); Hemoglobin 14.4 g/dL (12.0-15.0); Lymphocyte # 2.53 X10^3/ul (4.0); Lymphocyte % 23.6 % (19-41); Mean Corpuscular Hgb 31.3 pg (27.0-32.0); Mean Platelet Vol. 9.2 fl (6.2-12.0); Monocyte% 6.5 % (0-10); NRBC Flagged by Analyzer 0 % (0-5); Neutrophil # 7.33 X10^3/uL (2.7-7.7); Neutrophil % 68.3 % (47-70); Platelet Count 297 K/mm3 (150-450); RBC Distribution Width CV 13.1 % (11.6-14.6); RBC Distribution Width SD 43.7 fl (35.1-43.9); White Blood Count 10.7 K/mm3 (4.4-11.0)
[2020-03-16 17:20] LABS: Anion Gap 7 (5-15); BUN 12 mg/dL (7-18); BUN/Creat Ratio 17.5 RATIO (10-20); Calcium,Total 9.3 mg/dL (8.5-10.1); Chloride 109 mmol/L (98-107); Creatinine, Serum 0.68 mg/dL (0.55-1.02); EST Glomerular Filtration Rate 92 mL/min (>60); Est Glom Filt Rate - Afr Amer 112 mL/min (>60); Estimated Creatinine Clearance 67.84 ml/min; Glucose 91 mg/dL (74-106); Potassium 4.1 mmol/L (3.5-5.1); Sodium Level 141 mmol/L (136-145)
[2020-03-16 18:00] VITALS: BP 126/67; PULSE 69; RESP 18; O2SAT 96
[2020-03-16 18:51] VITALS: BP 126/67; PULSE 67; RESP 18; O2SAT 98
== END 2020-03-16 18:57 | disposition home or self-care (01) ==
PROVIDERS: Emergency Provider Emergency Medicine; PCP Internal Medicine
DX: T78.40XA Allergy, unspecified, initial encounter (principal); E11.9 Type 2 diabetes mellitus without complications; E55.9 Vitamin D deficiency, unspecified; F32.9 Major depressive disorder, single episode, unspecified; I10 Essential (primary) hypertension; Z82.49 Family history of ischemic heart disease and other diseases of the circulatory system; Z86.711 Personal history of pulmonary embolism; Z90.49 Acquired absence of other specified parts of digestive tract
CPT/HCPCS: 71045; 80048; 84484; 85025; 93005; 96360; 96361; 99284; J7030

== ENCOUNTER → 2020-07-16 10:51 | Outpatient (CLI) | payer OTHER, SELFPAY ==
--- NOTE | 2020-07-16 10:55 | US_ITS ---
STUDY: ABDOMINAL ULTRASOUND REASON FOR EXAM: Female, 65 years old. EPIGASTRIC/ LUQ PAIN AND BLOATING TECHNIQUE: Transabdominal ultrasound was performed with real-time and static stringer scale imaging. TECHNICAL QUALITY: Adequate. COMPARISON: None. FINDINGS: Liver: The liver measures 19.1 cm. There is fatty echogenicity of the liver. The bile ducts are within normal limits. There is hepatic color flow. The direction of portal flow is hepatopetal. There is no demonstrated mass lesion. Gallbladder: Status post cholecystectomy. Common Bile Duct (C.B.D.): The common bile duct measures 5 mm. Pancreas: Normal size of the head, body and tail of the pancreas. There is normal echogenicity of the pancreas. There is no demonstrated pancreatic mass or cyst. Spleen: Limited visualization of the spleen. The spleen measures 8.4 cm. Right Kidney: Normal size of the right kidney. The right kidney measures 10.5 x 5.7 x 5.3 cm. Normal renal cortex. The right cortex measures 1.7 cm. There is no demonstrated renal mass or cyst. There is no right hydronephrosis. Left Kidney: Normal size of the left kidney. The left kidney measures 10.4 x 4.6 x 6.2 cm. Normal renal cortex. The left cortex measures 2.0 cm. There is no demonstrated renal mass or cyst. There is no left hydronephrosis. Aorta: The visualized portion is normal. I.V.C.: The IVC is patent. There is no ascites. US/Abdomen Complete IMPRESSION: Enlarged fatty liver. Status post cholecystectomy. Electronically Signed: Alessio Denney DO at 22:18 EDT Tel [phone], Service support ,
== END ==
PROVIDERS: PCP Internal Medicine; Referring Provider Internal Medicine; Visit Provider Internal Medicine
DX: R10.12 Left upper quadrant pain (principal)
CPT/HCPCS: 76700

== ENCOUNTER 2021-05-02 20:39 | Emergency (ER) | payer OTHER, SELFPAY ==
[2021-05-02 20:40] VITALS: BP 156/77; PULSE 81; RESP 18; TEMP 37; O2SAT 93; BMI 49.4
--- NOTE | 2021-05-02 22:02 | EX.ED.DYSGE1 ---
HPI History of Present Illness Chief Complaint: Rash Informant: patient and family Narrative Narrative: 66-year-old female presents with rash. She states that she got her Covid vaccination on the 6 and believes sometime after that developed a discomfort in her back going along her chest. [facility] Medical History (Updated 05/02/21 @ 22:[address] Teo Ha DO) Arthritis Diabetes type 2, controlled Hypertension Pulmonary embolism Home Medications ergocalciferol (vitamin D2) [Vitamin D2] 50,000 unit PO MOFR 12/01/16 [History Last Taken 02/17/17] metformin 1,000 mg PO DAILY 02/20/17 [History Last Taken 02/19/17] albuterol sulfate 2 puff INHALATION Q6H PRN PRN 05/02/21 [History Last Taken Unknown] fluticasone furoate-vilanterol [Breo Ellipta] inh INHALATION DAILY 05/02/21 [History Last Taken Unknown] hydrocodone-acetaminophen 1 tab PO Q6H PRN PRN 3 Days #12 tablet 05/02/21 [Rx Last Taken Unknown] lisinopril-hydrochlorothiazide 1 tab PO DAILY 05/02/21 [History Last Taken Unknown] montelukast 10 mg PO DAILY 05/02/21 [History Last Taken Unknown] prednisone 60 mg PO DAILY #12 tablet 05/02/21 [Rx Last Taken Unknown] valacyclovir 1,000 mg PO TID 10 Days #30 tab 05/02/21 [Rx Last Taken Unknown] Allergy/AdvReac Type Severity Reaction Status Date / Time No Known Allergies Allergy Verified 05/02/21 20:42 Social History (Updated 05/02/21 @ 22:[address] Teo Ha DO) Smoking Status: Never smoker substance use type: does not use ROS ROS ED Constitutional Constitutional ED: Denies chills or weight loss Eyes Eyes: Denies change in vision or diplopia ENT ENT ED: Denies ear pain, rhinorrhea or sore throat Cardiovascular Cardiovascular: Denies chest pain, orthopnea, palpitations or racing heartbeat Respiratory/Chest Respiratory/Chest: Denies cough, dyspnea or orthopnea Gastrointestinal Gastrointestinal: Denies abdominal pain, diarrhea, nausea or vomiting Genitourinary Genitourinary ED: Denies dysuria, hematuria or urinary frequency Musculoskeletal Musculoskeletal: Denies arthralgias or myalgias Integumentary Reports rash; Denies abscess Neurologic Neurologic: Denies headache(s) or weakness Psychiatric Psychiatric: Denies anxiety, depression, suicidal ideation or suicidal thoughts Endocrine Endocrinology: Denies polydipsia, polyphagia or polyuria Allergic/Immunologic Allergic/Immunologic ED: Denies mouth swelling, tongue swelling or urticaria EXAM Physical Exam Const Vital Signs: 05/02/21 20:40 Temperature 98.6 F Temperature Source Temporal Pulse Rate 81 Respiratory Rate 18 Blood Pressure 156/77 H Blood Pressure Mean 103 Pulse Ox 93 Oxygen Delivery Method Room Air Positive well nourished and well developed General Appearance ED: well developed HEENT Reports normocephalic, head/scalp atraumatic and moist mucous membranes Eyes PERRL and EOMs intact bilaterally Neck no lymphadenopathy, supple and no JVD Resp normal respiratory effort and clear to auscultation bilaterally Cardio regular rate, regular rhythm and no murmurs GI normal to inspection, nondistended, normoactive bowel sounds and non-tender Palpation: soft Back/Spine no CVA tenderness and normal ROM Extremity normal to inspection General Extremety ED: Negative for edema General Extremity: Negative for edema Neuro oriented x3 and CN's II-XII intact bilaterally Sensorium / Orientation: alert Motor Exam: strength 5/5 throughout Psych mental status grossly normal Mood & Affect: Negative for depressed or tearful Skin no wounds Skin Narrative: Located around the T6-T7 dermatome is a rash on the right side of her body. It is consistent with shingles MDM MDM MDM Narrative Medical decision making narrative: Patient will be started on valacyclovir prednisone and [place]. Discharge Plan Triage Chief Complaint: Rash ED Provider: Teo Ha Dx/Rx/DC Orders Clinical Impression: Shingles Instructions: ED Shingles (Herpes Zoster) Prescriptions: New hydrocodone-acetaminophen [hydrocodone-acetaminophen] 1 TABLET tablet 1 tab PO Q6H PRN PRN (Reason: Pain) 3 Days Qty: 12 RF: 0 prednisone 20 MG tablet 60 mg PO DAILY Qty: 12 RF: 0 valacyclovir 1 gram tablet 1,000 mg PO TID 10 Days Qty: 30 RF: 0 No Action ergocalciferol (vitamin D2) [Vitamin D2] 50,000 UNIT capsule 50,000 unit PO MOFR RF: 0 metformin 500 MG tablet 1,000 mg PO DAILY RF: 0 lisinopril-hydrochlorothiazide 20-12.5 mg tablet 1 tab PO DAILY RF: 0 montelukast 10 mg tablet 10 mg PO DAILY RF: 0 albuterol sulfate 90 mcg/actuation HFA aerosol inhaler 2 puff INHALATION Q6H PRN PRN (Reason: Cough) RF: 0 Breo Ellipta 200-25 mcg/dose blister with device INHALATION DAILY RF: 0 Primary Care Provider: Tracy Louie Referrals: Tracy Louie DO [Primary Care Provider] - As Needed Activity Restrictions/Additional Instructions: One of your medications is prednisone. This will make your blood sugars rise temporarily while you are taking the medicine. Disposition Disposition: Home, Self Care
[2021-05-02] MEDS: predniSONE 20 MG Tablet 60 MG PO (22:15)
[2021-05-02] MEDS: HYDROcodone Bitartrate/Apap 5/325 Tablet PO (22:15)
[2021-05-02] MEDS: Acyclovir 800 MG Tablet PO (22:15)
== END 2021-05-02 22:30 | disposition home or self-care (01) ==
PROVIDERS: Emergency Provider Emergency Medicine; PCP Internal Medicine
DX: B02.9 Zoster without complications (principal); E11.9 Type 2 diabetes mellitus without complications; I10 Essential (primary) hypertension; M19.90 Unspecified osteoarthritis, unspecified site; Z79.51 Long term (current) use of inhaled steroids; Z79.52 Long term (current) use of systemic steroids; Z79.84 Long term (current) use of oral hypoglycemic drugs; Z86.711 Personal history of pulmonary embolism
CPT/HCPCS: 99283

== ENCOUNTER 2021-05-27 08:51 | Observation (INO) | payer OTHER, SELFPAY ==
[2021-05-27] VITALS (13 sets, daily range): BP systolic 118–173; BP diastolic 48–98; PULSE 67–78; RESP 16–18; TEMP 36.1–36.7; O2SAT 94–98; BMI 47.5; BMI 48.2
--- NOTE | 2021-05-27 08:57 | NURSING ---
STROKE ALERT CALLED
--- NOTE | 2021-05-27 09:00 | RAD_ITS ---
STUDY: X-RAY CHEST REASON FOR EXAM: Female, 66 years old. Strokelike symptoms TECHNIQUE: Single AP portable view of the chest. COMPARISON: Comparison is made with prior study dated 12/21/2020. FINDINGS: EKG electrodes are seen. Limited inspiratory effort. Mild vascular congestion. There is no demonstrated pleural abnormality. Normal size heart. Normal mediastinum and juana. Normal visualized pulmonary arteries. There is atherosclerotic tortuosity of the aortic arch and descending thoracic aorta. There are diffuse degenerative changes of the visualized thoracic spine. Normal visualized ribs, clavicles, and shoulders. There is no demonstrated abnormality of the visualized soft tissue structures of the upper abdomen. RAD/Chest 1 View (Portable) IMPRESSION: Limited inspiratory effort. Mild degree of vascular congestion. Electronically Signed: Harjeet Mullen MD at 10:20 EDT , Service support ,
--- NOTE | 2021-05-27 09:00 | CT_ITS ---
STUDY: CT BRAIN WITHOUT CONTRAST REASON FOR EXAM: Female, 66 years old. Strokelike symptoms. Left arm and left leg numbness. RADIATION DOSAGE (If Supplied By Facility): CTDIvol = ( 38.43 ) mGy, DLP = ( 683.87 ) mGycm TECHNIQUE: Transaxial CT imaging of the brain was performed without administration of intravenous contrast material. Individualized dose optimization techniques were used for this CT. COMPARISON: No relevant priors. FINDINGS: Normal soft tissue structures. Normal calvarium. Normal size ventricles and extra-axial spaces for the patient''s age. Normal white matter tracts of the cerebral hemispheres. Normal basal ganglia and thalami. Normal brainstem. Normal cerebellum. There is no intracranial hemorrhage. There are no findings of an acute ischemic infarction. Normal visualized paranasal sinuses. CT/Brain/Head without Contrast IMPRESSION: Normal unenhanced CT scan of the brain. N.B. : The above Results were Read Back by Harjeet Mullen MD to Charlie Calles and understanding confirmed on 05/27/2021 09:19:08 (ET). Electronically Signed: Harjeet Mullen MD at 9:20 EDT , Service support ,
--- NOTE | 2021-05-27 09:01 | EKG12_ITS ---
Test Reason : Blood Pressure : / mmHG Vent. Rate : 074 BPM Atrial Rate : 074 BPM P-R Int : 134 ms QRS Dur : 084 ms QT Int : 406 ms P-R-T Axes : 021 044 058 degrees QTc Int : 450 ms Normal sinus rhythm Normal ECG Confirmed by DACIA GONZALEZ, EDI ([id number]), development editor MEGAN DAHL ([id number]) on 05/31/2021 1:01:44 PM Referred By: CHARLIE Confirmed By:EDI PEDERSON MD
--- NOTE | 2021-05-27 09:05 | NURSING ---
FAXED FACESHEET TO [facility]
[2021-05-27 09:06] LABS: Bedside Glucose 196 mg/dL (70-110)
--- NOTE | 2021-05-27 09:17 | CT_ITS ---
STUDY: CTA HEAD AND NECK WITH CONTRAST REASON FOR EXAM: Female, 66 years old. Acute neurologic deficit, concern for stroke RADIATION DOSAGE (If Supplied By Facility): CTDIvol = ( 26.29 ) mGy, DLP = ( 1681.12 ) mGycm TECHNIQUE: CT angiography was performed with a multi-detector CT scanner. Data acquisition was obtained from the skull base through the vertex following intravenous administration of IV 100ML ISOVUE 370. MIP images were reconstructed from the axial data set. Post-processing of the angiographic images was performed, with multiplanar reformation and 3D reconstruction. Individualized dose optimization techniques were used for this CT. COMPARISON: No relevant priors. FINDINGS: Normal bilateral petrous carotid arteries. Normal right cavernous carotid artery with a normal supraclinoid bifurcation. Normal left cavernous carotid artery with a normal supraclinoid bifurcation. Normal right A1 segments of the anterior cerebral artery. Normal left A1 segments of the anterior cerebral artery. Normal intact anterior communicating artery (ACOM). Normal bilateral A2 segments of the anterior cerebral arteries. Normal right M1 and M2 segments of the middle cerebral arteries, with a normal M1 bifurcation. Normal left M1 and M2 segments of the middle cerebral arteries, with a normal M1 bifurcation. There is a persistent origin of the right posterior cerebral artery with absence of the posterior communicating artery (PCOM). There is a persistent origin of the left posterior cerebral artery with absence of the posterior communicating artery (PCOM). Normal bilateral vertebral arteries. Normal basilar artery with a normal basilar bifurcation. The visualized bilateral superior cerebellar (SCA) arteries are normal. Normal bilateral P1, P2 and visualized P3 segments of the posterior cerebral arteries. There is no demonstrated aneurysm of the [place]. There is no demonstrated abnormality of the visualized brain. AORTIC ARCH: Normal visualized aortic arch. Normal origins of the brachiocephalic, left common carotid, and left subclavian arteries. RIGHT CAROTID ARTERIES: Normal right common carotid artery (CCA). Normal right common carotid bulb. Normal origin of the right internal carotid (ICA) artery without a hemodynamically significant stenosis. Normal visualized cervical portion of the right internal carotid artery. Normal origin of the right external carotid artery (ECA). LEFT CAROTID ARTERIES: Normal left common carotid artery (CCA). Normal left common carotid bulb. Normal origin of the left internal carotid (ICA) artery without a hemodynamically significant stenosis. Normal visualized cervical portion of the left internal carotid artery. Normal origin of the left external carotid artery (ECA). VERTEBRAL ARTERIES: Normal bilateral vertebral arteries. CT/CTA Head AND Neck W/ Contrast IMPRESSION: Normal CTA Head and neck with contrast. Electronically Signed: Harjeet Mullen MD at 10:15 EDT , Service support ,
[2021-05-27] MEDS: Ondansetron 4 MG/2 ML Vial IV ×2 (09:20→12:02)
[2021-05-27 09:22] LABS: Absolute Lymphocyte Count 1.96 X10^3/uL (0.83-4.51); Absolute Neutrophil Count 4.5 X10^3/uL (2.0-7.7); Basophil# 0.03 X10^3/uL; Basophil% 0.4 % (0-1); Eosinophil# 0.13 X10^3/uL; Eosinophils% 1.7 % (0-5); Hematocrit 41.7 % (37-47); Hemoglobin 14.5 g/dL (12.0-15.0); Lymphocyte # 1.96 X10^3/ul (0.83-4.51); Lymphocyte % 26.2 % (19-41); Mean Corp Hgb Conc 34.8 g/dL (32-36); Mean Corpuscular Hgb 31.5 pg (27.0-32.0); Mean Corpuscular Volume 90.7 fL (81-99); Mean Platelet Vol. 9.1 fl (6.2-12.0); Monocyte# 0.81 X10^3/uL; Monocyte% 10.8 % (0-10); NRBC Flagged by Analyzer 0 % (0-5); Neutrophil # 4.54 X10^3/uL (2.7-7.7); Neutrophil % 60.6 % (47-70); Platelet Count 283 K/mm3 (150-450); RBC Distribution Width SD 46.3 fl (35.1-43.9); White Blood Count 7.5 K/mm3 (4.4-11.0)
[2021-05-27 09:29] LABS: Prothrombin Time (Protime)PT. 12.1 SECONDS (11.7-14.9)
[2021-05-27 09:30] LABS: Partial Thromboplast Time 22.8 Seconds (24.1-36.2)
[2021-05-27 09:42] LABS: Anion Gap 9 (5-15); BUN 13 mg/dL (7-18); Calcium,Total 8.9 mg/dL (8.5-10.1); Chloride 102 mmol/L (98-107); Creatinine, Serum 0.82 mg/dL (0.55-1.02); EST Glomerular Filtration Rate 75 mL/min (>60); Est Glom Filt Rate - Afr Amer 91 mL/min (>60); Estimated Creatinine Clearance 54.82 ml/min; Glucose 200 mg/dL (74-106); Magnesium 1.9 mg/dL (1.6-2.6); Potassium 3.9 mmol/L (3.5-5.1); Sodium Level 136 mmol/L (136-145); Troponin-I HS 14 pg/mL (3.0-54.0)
[2021-05-27] MEDS: Aspirin 325 MG Tablet PO (10:28)
--- NOTE | 2021-05-27 10:51 | NURSING ---
DR BERMAN FOR DR GUERRA
--- NOTE | 2021-05-27 10:53 | PCM.HP.STD ---
HPI - General HPI Narrative LYN HUFF, is a 66 F with history of hypertension, provoked PE after surgery in the past came to ER with sudden onset left-sided numbness and weakness that lasted for about 2 to 5 minutes. She denies any prior history of a stroke or TIA. She has history of chronic urinary incontinence but felt it got exacerbated during that time. In ED, she is having also headache, migraine in quality mainly retro-orbital region with nausea, photophobia. She has a history of migraine headache happens once in 1 to 2 months and takes ibuprofen at home. Never been evaluated by neurologist for migraine headache. In ED, NIH stroke score was found 1. Blood pressure and heart rate in the acceptable limit as per TIA/stroke guidelines. Stroke alert was called and [facility] tele stroke was consulted. CT head does not show any change. CTA head and neck was done as per recommendation and reported normal. Twelve-lead EKG shows normal sinus rhythm at 74 beats minute, QTC 450 ms. No significant change from the previous EKG 16 March 2020. Patient is further admitted for observation and a stroke work-up. [facility] Medical History (Updated 05/27/21 @ 12:[address] Goldy Holder MD) Arthritis Diabetes type 2, controlled Hypertension Migraine headache Pulmonary embolism Home Medications metformin 1,000 mg PO DAILY 02/20/17 [History Last Taken 02/19/17] albuterol sulfate 2 puff INHALATION Q6H PRN PRN 05/02/21 [History Last Taken Unknown] fluticasone furoate-vilanterol [Breo Ellipta] 1 inh INHALATION DAILY 05/02/21 [History Last Taken Unknown] hydrocodone-acetaminophen 1 tab PO Q6H PRN PRN 3 Days #12 tablet 05/02/21 [Rx Last Taken Unknown] lisinopril-hydrochlorothiazide 1 tab PO DAILY 05/02/21 [History Last Taken Unknown] montelukast 10 mg PO DAILY 05/02/21 [History Last Taken Unknown] gabapentin 300 mg PO QHS 05/27/21 [History Last Taken Unknown] Allergy/AdvReac Type Severity Reaction Status Date / Time No Known Allergies Allergy Verified 05/02/21 20:42 Social History Smoking Status: Never smoker substance use type: does not use ROS ROS Narrative Constitutional: Reports headache, photophobia, nausea. HEENT: Reports systems reviewed and no addt'l complaints, except as documented Respiratory/Chest: Denies chest pain, shortness of breath at rest or with exertion Gastrointestinal: Denies coffee ground emesis, hematemesis or vomiting Genitourinary: Chronic urinary incontinence. Denies burning urination. Rest as mentioned in HPI Musculoskeletal: Denies joint pain and limited range of motion Neurologic: Migraine headache. Denies seizure-like activity. skin: No ulcer. No rash Endocrinology: Diabetes mellitus type 2. Not on insulin regimen. Reports systems reviewed and no addt'l complaints, except as documented Hematologic/Lymphatic: Reports systems reviewed and no addt'l complaints, except as documented Rest 12 ROS are negative except as mentioned in HPI Vital Signs Vital Signs Vital Signs: 05/27/21 08:52 05/27/21 08:58 05/27/21 10:09 Temperature 97.2 F L 97.2 F L Temperature Source Temporal Temporal Pulse Rate 78 76 68 Respiratory Rate 16 17 16 Blood Pressure 173/84 H 173/84 H 118/73 Blood Pressure Mean 113 113 88 Pulse Ox 96 95 95 Oxygen Delivery Method Room Air Room Air Room Air 05/27/21 10:35 Temperature Temperature Source Pulse Rate 67 Respiratory Rate 16 Blood Pressure 147/65 H Blood Pressure Mean 92 Pulse Ox 94 Oxygen Delivery Method Room Air Weight Weight: 259 lb 14.8 oz Body Mass Index (BMI) 47.5 Physical Exam Narrative General: Alert, Oriented x3, Cooperative HEENT: Photophobia. Atraumatic, PERRLA, EOMI, Normocephalic Oral: No Gingival or Mucosal Lesions/ Ulcerations Neck: Supple, No JVD, Negative Carotid Bruits Lungs: Air entry diminished in bilateral lung bases. No crepitation/rhonchi Cardiovascular: Regular rate, Regular Rhythm, Normal S1, Normal S2, No murmurs Abdomen: Bowel Sounds Present, Soft, Non Tender, Non-Distended : No renal angle tenderness. No suprapubic tenderness. Extremities: No edema, Capillary Refill Less than 3 Seconds Skin: No rashes, No breakdown Musculoskeletal: Muscle strength 5/5 at major joints. No Tenderness to Palpation of Joints or Extremities Neurological: Cranial nerves II-XII grossly intact, DTR 2+/4 and Symmetrical, Neuro grossly intact. NIH stroke scale 1 Psych/Mental Status: Mild distress due to headache. Results Lab / Micro Data Result Diagrams: 05/27/21 09:10 05/27/21 09:10 Labs: Laboratory Results - last 24 hr 05/27/21 08:58: POC Glucose 196 H 05/27/21 09:10: WBC 7.5, RBC 4.60, Hgb 14.5, Hct 41.7, MCV 90.7, MCH 31.5, MCHC 34.8, RDW Std Deviation 46.3 H, RDW Coeff of Chong 14.0, Plt Count 283, MPV 9.1, Immature Gran % (Auto) 0.300, Neut % (Auto) 60.6, Lymph % (Auto) 26.2, Piatt % (Auto) 10.8 H, Eos % (Auto) 1.7, Baso % (Auto) 0.4, Absolute Neuts (auto) 4.5, Absolute Lymphs (auto) 1.96, Nucleated RBC % 0 05/27/21 09:10: PT 12.1, INR 1.0, APTT 22.8 L 05/27/21 09:10: Sodium 136, Potassium 3.9, Chloride 102, Carbon Dioxide 25.0, Anion Gap 9, BUN 13, Creatinine 0.82, Estim Creat Clear Calc 54.82, Est GFR (MDRD) Af Amer 91, Est GFR (MDRD) Non-Af 75, BUN/Creatinine Ratio 16.0, Glucose 200 H, Calcium 8.9, Magnesium 1.9, Troponin I High Sens 14 Micro: Microbiology 05/27/21 09:23 Nasal Secretion SARS-CoV-2 Antigen (Rapid) - Final Radiology Impression Brain CT 05/27/21 09:00 IMPRESSION: Normal unenhanced CT scan of the brain. N.B. : The above Results were Read Back by Harjeet Mullen MD to Charlie Calles and understanding confirmed on 05/27/2021 09:19:08 (ET). Electronically Signed: Harjeet Mullen MD at 9:20 EDT , Service support , ADDENDUM: 05/27/21926 IMPRESSION: Normal unenhanced CT scan of the brain. N.B. : The above Results were Read Back by Harjeet Mullen MD to Charlie Calles and understanding confirmed on 05/27/2021 09:19:08 (ET). Electronically Signed: Harjeet Mullen MD at 9:20 EDT , Service support , Chest X-Ray 05/27/21 09:00 IMPRESSION: Limited inspiratory effort. Mild degree of vascular congestion. Electronically Signed: Harjeet Mullen MD at 10:20 EDT , Service support , Head/Neck CTA 05/27/21 09:17 IMPRESSION: Normal CTA Head and neck with contrast. Electronically Signed: Harjeet Mullen MD at 10:15 EDT , Service support , Assessment & Plan Assessment/Plan (1) TIA (transient ischemic attack): PLAN: This 66-year-old female came to ER with left-sided weakness and numbness suggestive of TIA. Her symptoms are resolved. 1. TIA/possible ischemic stroke: Patient is being admitted in PCU on observation. Cardiac telemetry. NIH stroke scale monitoring. Glucose and BP control as per stroke guidelines. MRI brain and 2D echo ordered. Patient CT head and neck are normal. Fasting profile and A1c tomorrow a.m. On aspirin and atorvastatin. 2. Acute on chronic migraine possible retro-orbital headache: Ibuprofen 600 mg ordered. Patient also meclizine in ER. If headache does not get better will need further management. 3. Adenomatous type II: Accu-Chek insulin coverage block/sliding scale. Will hold Metformin. 4. Hypertension: Blood pressure is currently under stroke guidelines. 5. Other chronic comorbidities include history of pulmonary embolism after surgery, chronic urinary incontinence, asthma on inhalers and recent history of shingles about a month ago: Home medication reconciliation done. CODE STATUS full. Charges/Coding Visit Charges OBSV E&M: 34123 Initial observation care L3
--- NOTE | 2021-05-27 10:54 | EX.ED.DYSGE1 ---
HPI History of Present Illness Chief Complaint: Neuro S/Sx Narrative Narrative: Patient is a 66-year-old female with past medical history of high blood pressure high cholesterol and diabetes. She states that she awoke this morning as she normally does and then had a 2 to 5-minute episode where she felt that her left arm and leg were numb/tingly and weak. She states the symptoms improved rapidly but with concern that this could have been a stroke presents to the ER for evaluation [facility] Medical History Arthritis Diabetes type 2, controlled Hypertension Pulmonary embolism Home Medications metformin 1,000 mg PO DAILY 02/20/17 [History Last Taken 02/19/17] albuterol sulfate 2 puff INHALATION Q6H PRN PRN 05/02/21 [History Last Taken Unknown] fluticasone furoate-vilanterol [Breo Ellipta] 1 inh INHALATION DAILY 05/02/21 [History Last Taken Unknown] hydrocodone-acetaminophen 1 tab PO Q6H PRN PRN 3 Days #12 tablet 05/02/21 [Rx Last Taken Unknown] lisinopril-hydrochlorothiazide 1 tab PO DAILY 05/02/21 [History Last Taken Unknown] montelukast 10 mg PO DAILY 05/02/21 [History Last Taken Unknown] gabapentin 300 mg PO QHS 05/27/21 [History Last Taken Unknown] Allergy/AdvReac Type Severity Reaction Status Date / Time No Known Allergies Allergy Verified 05/02/21 20:42 Social History (Updated 05/02/21 @ 22:[address] Teo Ha DO) Smoking Status: Never smoker substance use type: does not use ROS ROS ED Constitutional Constitutional ED: Denies chills or fever(s) Eyes Eyes: Denies change in vision ENT ENT ED: Denies sore throat Cardiovascular Cardiovascular: Denies chest pain Respiratory/Chest Respiratory/Chest: Denies cough or dyspnea Gastrointestinal Gastrointestinal: Reports nausea; Denies abdominal pain, diarrhea or vomiting Genitourinary Genitourinary ED: Denies dysuria Musculoskeletal Musculoskeletal: Denies myalgias Integumentary Denies rash Neurologic Neurologic: Reports paresthesias and weakness; Denies headache(s) Hematologic/Lymphatic Hematologic/Lymphatic: Denies easy bleeding or easy bruising EXAM Physical Exam Const Vital Signs: 05/27/21 08:52 05/27/21 08:58 05/27/21 10:09 Temperature 97.2 F L 97.2 F L Temperature Source Temporal Temporal Pulse Rate 78 76 68 Respiratory Rate 16 17 16 Blood Pressure 173/84 H 173/84 H 118/73 Blood Pressure Mean 113 113 88 Pulse Ox 96 95 95 Oxygen Delivery Method Room Air Room Air Room Air 05/27/21 10:35 Temperature Temperature Source Pulse Rate 67 Respiratory Rate 16 Blood Pressure 147/65 H Blood Pressure Mean 92 Pulse Ox 94 Oxygen Delivery Method Room Air Positive well nourished and well developed General Appearance ED: well developed HEENT Reports moist mucous membranes Eyes PERRL and EOMs intact bilaterally Neck supple Resp normal respiratory effort and clear to auscultation bilaterally Cardio regular rate and regular rhythm GI normal to inspection, nondistended, normoactive bowel sounds, non-tender and non-distended Auscultation: normoactive bowel sounds Palpation: soft Extremity normal to inspection Neuro oriented x3 Neuro Narrative: Cranial nerves II through XII are grossly intact. Patient has mild dysmetria of the left upper arm compared to the right. She receives an NIH stroke scale score of 1 secondary to this. Otherwise there are no focal neurologic deficit Sensorium / Orientation: alert Psych mental status grossly normal Skin no rashes or lesions noted MDM MDM MDM Narrative Medical decision making narrative: Patient presented to the ER awake and alert with a physical exam indicating possible neurologic event with dysmetria of the left arm. Her stroke scale score is 1 but she is following within the stroke window so a stroke alert was activated. Based on the low value of her NIH stroke scale score she does not qualify for TPA. Neurology also evaluated the patient through the telestroke bot and agree with the assessment and recommend CTA on top of the noncontrast CT. they also reiterate there is no need for TPA based on her stroke scale score. The patient's work-up revealed no acute findings and on reevaluation she still had dysmetria of the left arm. Therefore she be placed in the hospital for continued stroke evaluation. She was given aspirin after her noncontrast CT revealed no acute bleed Lab Data Labs: Laboratory Results - last 24 hr 05/27/21 05/27/21 05/27/21 08:58 09:10 09:10 WBC 7.5 RBC 4.60 Hgb 14.5 Hct 41.7 MCV 90.7 MCH 31.5 MCHC 34.8 RDW Std Deviation 46.3 H RDW Coeff of Chong 14.0 Plt Count 283 MPV 9.1 Immature Gran % (Auto) 0.300 Neut % (Auto) 60.6 Lymph % (Auto) 26.2 Gregg % (Auto) 10.8 H Eos % (Auto) 1.7 Baso % (Auto) 0.4 Absolute Neuts (auto) 4.5 Absolute Lymphs (auto) 1.96 Nucleated RBC % 0 PT 12.1 INR 1.0 APTT 22.8 L Sodium Potassium Chloride Carbon Dioxide Anion Gap BUN Creatinine Estim Creat Clear Calc Est GFR (MDRD) Af Amer Est GFR (MDRD) Non-Af BUN/Creatinine Ratio Glucose Calcium Magnesium Troponin I High Sens POC Glucose 196 H 05/27/21 09:10 WBC RBC Hgb Hct MCV MCH MCHC RDW Std Deviation RDW Coeff of Chong Plt Count MPV Immature Gran % (Auto) Neut % (Auto) Lymph % (Auto) Gregg % (Auto) Eos % (Auto) Baso % (Auto) Absolute Neuts (auto) Absolute Lymphs (auto) Nucleated RBC % PT INR APTT Sodium 136 Potassium 3.9 Chloride 102 Carbon Dioxide 25.0 Anion Gap 9 BUN 13 Creatinine 0.82 Estim Creat Clear Calc 54.82 Est GFR (MDRD) Af Amer 91 Est GFR (MDRD) Non-Af 75 BUN/Creatinine Ratio 16.0 Glucose 200 H Calcium 8.9 Magnesium 1.9 Troponin I High Sens 14 POC Glucose Radiography Diagnostic Testing: Radiology Impression Brain CT 05/27/21 09:00 IMPRESSION: Normal unenhanced CT scan of the brain. N.B. : The above Results were Read Back by Harjeet Mullen MD to Charlie Calles and understanding confirmed on 05/27/2021 09:19:08 (ET). Electronically Signed: Harjeet Mullen MD at 9:20 EDT , Service support , ADDENDUM: 05/27/21926 IMPRESSION: Normal unenhanced CT scan of the brain. N.B. : The above Results were Read Back by Harjeet Mullen MD to Charlie Calles and understanding confirmed on 05/27/2021 09:19:08 (ET). Electronically Signed: Harjeet Mullen MD at 9:20 EDT , Service support , Chest X-Ray 05/27/21 09:00 IMPRESSION: Limited inspiratory effort. Mild degree of vascular congestion. Electronically Signed: Harjeet Mullen MD at 10:20 EDT , Service support , Head/Neck CTA 05/27/21 09:17 IMPRESSION: Normal CTA Head and neck with contrast. Electronically Signed: Harjeet Mullen MD at 10:15 EDT , Service support , Discharge Plan Triage Chief Complaint: Neuro S/Sx ED Provider: Charlie Calles Dx/Rx/DC Orders Clinical Impression: Stroke-like symptoms Prescriptions: No Action metformin 500 MG tablet 1,000 mg PO DAILY RF: 0 lisinopril-hydrochlorothiazide 20-12.5 mg tablet 1 tab PO DAILY RF: 0 montelukast 10 mg tablet 10 mg PO DAILY RF: 0 albuterol sulfate 90 mcg/actuation HFA aerosol inhaler 2 puff INHALATION Q6H PRN PRN (Reason: Cough) RF: 0 Breo Ellipta 200-25 mcg/dose blister with device 1 inh INHALATION DAILY RF: 0 hydrocodone-acetaminophen [hydrocodone-acetaminophen] 1 TABLET tablet 1 tab PO Q6H PRN PRN (Reason: Pain) 3 Days Qty: 12 RF: 0 gabapentin 300 mg capsule 300 mg PO QHS RF: 0 Primary Care Provider: Tracy Louie Referrals: Tracy Louie DO [Primary Care Provider] - Disposition Disposition: Acute Care [facility]
--- NOTE | 2021-05-27 11:01 | NURSING ---
MED SURG OBS CULLEN STROKE LIKE SYMPTOMS
[2021-05-27] MEDS: Meclizine 12.5 MG Tablet PO ×2 (12:02→23:32)
[2021-05-27] MEDS: Metoclopramide 10 MG/2 ML Vial IV (13:38)
[2021-05-27] MEDS: Ibuprofen 600 MG Tablet PO (13:38)
--- NOTE | 2021-05-27 15:55 | MRI_ITS ---
HISTORY: TIA, dizziness EXAMINATION: MR Brain W/O Contrast TECHNIQUE: Multiplanar and multisequence MR images of the brain were obtained without gadolinium. IV Contrast dosage and agent: COMPARISON: Noncontrast head CT same day FINDINGS: BRAIN PARENCHYMA: No MRI evidence of hemorrhage. No evidence of acute infarct. Mild central and cortical involutional changes are noted. There is mild increased T2 and FLAIR signal abnormality in the periventricular white matter. No intracranial mass or mass effect. There is preservation of the stringer/white matter interface. Normal variant partially empty sella turcica, unremarkable pituitary gland, infundibular stalk, optic chiasm and hypothalamus. The internal auditory canals are patent. Posterior fossa structures are unremarkable. CSF SPACES: Appropriate for age. No hydrocephalus. Basal cisterns are patent. VASCULAR SYSTEM: Normal flow voids in the major intracranial circulation. CALVARIUM, SKULL BASE, PARANASAL SINUSES AND MASTOID AIR CELLS: Clear. No discrete lytic or blastic abnormalities. ORBITS: Both globes, extraocular muscles, optic nerves and retrobulbar fat appear unremarkable. MRI/Brain without Contrast IMPRESSION: Chronic involutional and white matter changes. No acute intracranial process. at 2101 Reported and signed by: Eagle Valentino MD Electronically Signed: Eagle Valentino MD at 20:59 EDT Tel , Service support ,
--- NOTE | 2021-05-27 15:55 | ECHOCS_ITS ---
Reason For Study: TIA/CVA Procedure This was a 2D Doppler, Color Flow transthoracic echocardiogram. The study was technically difficult. Contrast injection was performed. Bubble study performed. Exam performed portable in patient room. Left Ventricle Normal left ventricle. The estimated ejection fraction is EF 55-60 %. Right Ventricle Normal right ventricle. Normal systolic function. Atria Normal left atrium. Normal right atrium. Bubble contrast study negative for right to left interatrial shunt. Intact atrial septum. Mitral Valve There is mild mitral annular calcification. Trivial mitral valve insufficiency. Tricuspid Valve Normal tricuspid valve. Aortic Valve Mild diffuse aortic valve calcification. Pulmonic Valve The pulmonic valve is not well visualized. Great Vessels Normal aortic root. Pericardium/Pleural No pericardial effusion. Medication Diluted definity 2ml given slow IV push to enhance endocardial definition. Performed a rapid injection of agitated mix of 9 cc saline and 1cc air to assess for atrial septal defect. MMode/2D Measurements & Calculations LVIDd: 4.6 cm IVSd: 0.80 cm Ao root diam: 3.3 cm LVIDs: 2.5 cm LVPWd: 1.1 cm FS: 44.8 % LAV(MOD-bp): 28.1 ml LA A4 area: 12.2 cm2 RA A4 area: 11.6 cm2 LAV(MOD-bp) Indexed: 13.2 ml/m2 LAV(MOD-sp2): 32.5 ml LAV(MOD-sp4): 24.6 ml Time Measurements MV dec time: 0.30 sec Doppler Measurements & Calculations MV E max obed: 116.8 cm/sec Lat Peak E' Obed: 9.2 cm/sec Med Peak E' Obed: 6.6 cm/sec MV A max obed: 124.9 cm/sec E/E' lat: 12.7 E/E' med: 17.6 MV E/A: 0.93 MV V2 max: 125.3 cm/sec MV P1/2t max obed: 116.3 cm/sec Ao V2 max: 180.1 cm/sec MV max P.3 mmHg MV P1/2t: 63.1 msec Ao max P.0 mmHg MV V2 mean: 64.9 cm/sec MV dec slope: 540.0 cm/sec2 MV mean P.1 mmHg MV V2 VTI: 36.8 cm MVA(P1/2t): 3.5 cm2 LV V1 max: 141.1 cm/sec PA V2 max: 118.5 cm/sec LV V1 max P.0 mmHg ECHO/Echo Complete W/ Contrast Interpretation Summary The estimated ejection fraction is EF 55-60 %. Normal LV systolic function Negative Bubble study No PFO No significant changes from Echo 02/21/2017 Ordering Physician: Goldy Holder Referring Physician: Tracy Louie M.D. Performed By: Nguyễn Guillen RCS
--- NOTE | 2021-05-27 15:59 | PCS.PANDOC ---
PANDEMIC DOCUMENTATION INITIATED: Date: 05/03/2021 Time: 190
[2021-05-27] MEDS: Enoxaparin 40 MG/0.4 ML Syringe SC (16:40)
[2021-05-27] MEDS: Insulin Lispro 100 UNIT/ML INSULN.PEN SC ×2 (16:40→22:03)
[2021-05-27 17:55] LABS: Bedside Glucose 201 mg/dL (70-110)
[2021-05-27] MEDS: proCHLORPERazine 10 MG/2 ML Vial 5 MG IV (20:30)
[2021-05-27] MEDS: 0.9% Saline Lock 10 ML Syringe IV (20:31)
[2021-05-27] MEDS: Atorvastatin Calcium 80 MG Tablet PO (22:03)
[2021-05-27] MEDS: Gabapentin 300 MG Capsule PO (22:03)
[2021-05-27 22:11] LABS: Bedside Glucose 187 mg/dL (70-110)
[2021-05-28] VITALS (9 sets, daily range): BP systolic 118–138; BP diastolic 59–66; PULSE 63–86; RESP 14–16; TEMP 36.2–36.8; O2SAT 92–95; BMI 48.2
[2021-05-28 06:30] LABS: Cholesterol 245 mg/dL (200); High Density Lipoprotein 42 mg/dL; Thyroid Stim Hormone (TSH) 0.79 uIU/mL (0.358-3.74); Triglycerides 301 mg/dL; Very Low Density Lipoprotein 60 mg/dL (5-40)
[2021-05-28] MEDS: Insulin Lispro 100 UNIT/ML INSULN.PEN SC ×2 (06:32→11:53)
[2021-05-28 06:41] LABS: Bedside Glucose 164 mg/dL (70-110)
[2021-05-28] MEDS: Albuterol 2.5 MG/3 ML VIAL.NEB. INHALATION ×2 (07:13→12:45)
[2021-05-28] MEDS: Budesonide Respules 0.5 MG/2 ML AMPUL.NEB. INHALATION (07:13)
[2021-05-28 07:32] LABS: Hemoglobin A1c 7.1 % (3.8-5.6)
[2021-05-28] MEDS: hydroCHLOROthiazide 12.5mg 12.5 MG PO (08:35)
[2021-05-28] MEDS: Meclizine 12.5 MG Tablet PO (08:35)
[2021-05-28] MEDS: Enoxaparin 40 MG/0.4 ML Syringe SC (08:35)
[2021-05-28] MEDS: Aspirin E.C. 81 MG Tablet PO (08:35)
[2021-05-28] MEDS: Montelukast 10 MG Tablet PO (08:35)
[2021-05-28] MEDS: Lisinopril 20 MG Tablet PO (08:35)
--- NOTE | 2021-05-28 09:26 | PCM.DC ---
Discharge Instructions Diet Discharge Diet: Low fat / Low cholesterol, 1800 Calorie Control Diet and 2000 mg Sodium Diet Activity Discharge Activity: Return to Normal Activity Weight Bearing Status: Weight bearing as tolerated Dressing / Incision Call your doctor if you observe: Fever of 101 or Higher, Coldness, Increased Pain, Numbness or Tingling, Change in Color, Inability to urinate, Inability to have a bowel movement, Shortness of breath, Dizziness, Fainting spells, Swelling in the ankles, Chest pain, Prolonged hiccupping, Increased palpitations (irregular heartbeat), Calf discomfort and Uncontrolled pain Follow Up Care Test Results: Test results from this visit will be discussed in further detail at your follow-up appointment, if applicable. Discharge Plan Admission Admit Date/Time: 05/27/21 10:58 Primary Reason for Your Visit: TIA, optic migraine headache Attending Provider: Goldy Holder Primary Care Provider: Tracy Louie Instructions Patient Instructions: ED Chest Pain, Noncardiac Additional Instructions / Restrictions: 30-day event monitor Dr. Barajas. Discharge Orders/Prescriptions Prescriptions: New atorvastatin 80 mg Tablet 80 mg PO QHS Qty: 30 RF: 2 aspirin 81 mg Tablet,Delayed Release (Dr/Ec) 81 mg PO BREAKFAST Qty: 30 RF: 2 Continued lisinopril-hydrochlorothiazide 20-12.5 mg tablet 1 tab PO DAILY RF: 0 montelukast 10 mg tablet 10 mg PO DAILY RF: 0 albuterol sulfate 90 mcg/actuation HFA aerosol inhaler 2 puff INHALATION Q6H PRN PRN (Reason: Cough) RF: 0 Breo Ellipta 200-25 mcg/dose blister with device 1 inh INHALATION DAILY RF: 0 hydrocodone-acetaminophen 1 TABLET tablet 1 tab PO Q6H PRN PRN (Reason: Pain) 3 Days Qty: 12 RF: 0 gabapentin 300 mg capsule 300 mg PO QHS RF: 0 metformin 500 MG tablet 1,000 mg PO DAILY Qty: 0 RF: 0 Other Ambulatory Orders: 30-Day Event Recorder (Routine) Location: None Selected Ordered By: Dr. Goldy Holder Referrals / Follow Up: Tracy Louie DO [Primary Care Provider] - Disposition Disposition (needs filled in before D/C Order can be placed): Home, Self Care
[2021-05-28] MEDS: oxyCODONE 5 MG Tablet PO (09:38)
[2021-05-28] MEDS: Ibuprofen 600 MG Tablet PO ×2 (11:21→14:48)
[2021-05-28 11:26] LABS: Bedside Glucose 201 mg/dL (70-110)
--- NOTE | 2021-05-28 11:34 | PCM.DC.SUM ---
Providers Date of Admission: 05/27/21 Primary Care Physician: Dr. Tracy Louie DO Reason For Visit: TIA Diagnosis Discharge Diagnosis (1) TIA (transient ischemic attack): Status: Acute Code(s): G45.9 - Transient cerebral ischemic attack, unspecified Medications at Discharge Home Medications Breo Ellipta 1 inh INHALATION DAILY 05/02/21 albuterol sulfate 2 puff INHALATION Q6H PRN PRN 05/02/21 hydrocodone-acetaminophen 1 tab PO Q6H PRN PRN 3 Days #12 tablet 05/02/21 lisinopril-hydrochlorothiazide 1 tab PO DAILY 05/02/21 montelukast 10 mg PO DAILY 05/02/21 gabapentin 300 mg PO QHS 05/27/21 aspirin 81 mg PO BREAKFAST #30 tab 05/28/21 atorvastatin 80 mg PO QHS #30 tab 05/28/21 metformin 1,000 mg PO DAILY #0 tab 05/28/21 Hospital Course Summary of Care Provided Hospital Course: This 66-year-old female came to ER with left-sided weakness and numbness suggestive of TIA. Her symptoms are resolved. 1. TIA/possible ischemic stroke: Patient is being admitted in PCU on observation. Cardiac telemetry. NIH stroke scale monitoring. Glucose and BP control as per stroke guidelines. MRI brain reported no acute infarct or change. 2D echo verbally reported no PFO. Discussed with Dr. Chinchilla. 30-day event monitor approved by Dr. Barajas. Follow-up with neurologist Dr. Zhang in 2 to 4 weeks for migraine. Migraine headache is controlled with Motrin. Patient CT head and neck are normal. Fine but shows high triglyceride 301, LDL 143. TSH normal. A1c 7.1. The patient is discharged on aspirin and high intensity statin. 2. Acute on chronic migraine possible retro-orbital headache: Ibuprofen 600 mg ordered. Patient also meclizine in ER. If headache does not get better will need further management. 3. Adenomatous type II: Accu-Chek insulin coverage block/sliding scale. Advised to hold Metformin for 2 more days 4. Hypertension: Blood pressure is currently under stroke guidelines. 5. Other chronic comorbidities include history of pulmonary embolism after surgery, chronic urinary incontinence, asthma on inhalers and recent history of shingles about a month ago: Home medication reconciliation done. CODE STATUS full. Microbiology Past 72 Hours 09/09/21 09:23 Nasal Secretion SARS-CoV-2 Antigen (Rapid) - Final Laboratory Results 05/27/21 16:38: POC Glucose 201 H 05/27/21 22:02: POC Glucose 187 H 05/28/21 05:28: Triglycerides 301 H, Cholesterol 245 H, LDL Cholesterol 143 H, VLDL Cholesterol 60 H, HDL Cholesterol 42, TSH 0.79 05/28/21 05:28: Hemoglobin A1c 7.1 H 05/28/21 06:32: POC Glucose 164 H 05/28/21 11:18: POC Glucose 201 H Physical Exam Narrative The patient had headache in the morning and Motrin 600 mg oral given and her headache mainly retro-orbital improved from 04/27-10/28. General: Alert, Oriented x3, Cooperative HEENT: Photophobia. Atraumatic, PERRLA, EOMI, Normocephalic Oral: No Gingival or Mucosal Lesions/ Ulcerations Neck: Supple, No JVD, Negative Carotid Bruits Lungs: Air entry diminished in bilateral lung bases. No crepitation/rhonchi Cardiovascular: Regular rate, Regular Rhythm, Normal S1, Normal S2, No murmurs Abdomen: Bowel Sounds Present, Soft, Non Tender, Non-Distended : No renal angle tenderness. No suprapubic tenderness. Extremities: No edema, Capillary Refill Less than 3 Seconds Skin: No rashes, No breakdown Musculoskeletal: Muscle strength 5/5 at major joints. No Tenderness to Palpation of Joints or Extremities Neurological: Cranial nerves II-XII grossly intact, DTR 2+/4 and Symmetrical, Neuro grossly intact. NIH stroke scale 1 Psych/Mental Status: Mild distress due to headache. Weight / BMI Weight Weight: 263 lb 7.238 oz Body Mass Index (BMI) 48.2 ABG / Lab / Microbiology Data Result Diagrams: 05/27/21 09:10 05/27/21 09:10 Laboratory: Laboratory Results - last 24 hr 05/27/21 16:38: POC Glucose 201 H 05/27/21 22:02: POC Glucose 187 H 05/28/21 05:28: Triglycerides 301 H, Cholesterol 245 H, LDL Cholesterol 143 H, VLDL Cholesterol 60 H, HDL Cholesterol 42, TSH 0.79 05/28/21 05:28: Hemoglobin A1c 7.1 H 05/28/21 06:32: POC Glucose 164 H 05/28/21 11:18: POC Glucose 201 H Microbiology: Microbiology 05/27/21 09:23 Nasal Secretion SARS-CoV-2 Antigen (Rapid) - Final Radiography Diagnostic Testing: Radiology Impression Brain MRI 05/27/21 15:55 IMPRESSION: Chronic involutional and white matter changes. No acute intracranial process. at 2101 Reported and signed by: Eagle Valentino MD Electronically Signed: Eagle Valentino MD at 20:59 EDT Tel , Service support , D/C Instructions Discharge Diet: Low fat / Low cholesterol, 1800 Calorie Control Diet and 2000 mg Sodium Diet Weight Bearing Status: Weight bearing as tolerated Call your doctor if you observe: Fever of 101 or Higher, Coldness, Increased Pain, Numbness or Tingling, Change in Color, Inability to urinate, Inability to have a bowel movement, Shortness of breath, Dizziness, Fainting spells, Swelling in the ankles, Chest pain, Prolonged hiccupping, Increased palpitations (irregular heartbeat), Calf discomfort and Uncontrolled pain Meaningful Use Info Meaningful Use Diagnoses (Choose all that apply): None applicable Discharge Plan Admission Admit Date/Time: 05/27/21 10:58 Primary Reason for Your Visit: TIA, optic migraine headache Attending Provider: Goldy Holder Primary Care Provider: Tracy Louie Instructions Patient Instructions: ED Chest Pain, Noncardiac Additional Instructions / Restrictions: 30-day event monitor Dr. Barajas. Discharge Orders/Prescriptions Prescriptions: New atorvastatin 80 mg Tablet 80 mg PO QHS Qty: 30 RF: 2 aspirin 81 mg Tablet,Delayed Release (Dr/Ec) 81 mg PO BREAKFAST Qty: 30 RF: 2 Continued lisinopril-hydrochlorothiazide 20-12.5 mg tablet 1 tab PO DAILY RF: 0 montelukast 10 mg tablet 10 mg PO DAILY RF: 0 albuterol sulfate 90 mcg/actuation HFA aerosol inhaler 2 puff INHALATION Q6H PRN PRN (Reason: Cough) RF: 0 Breo Ellipta 200-25 mcg/dose blister with device 1 inh INHALATION DAILY RF: 0 hydrocodone-acetaminophen 1 TABLET tablet 1 tab PO Q6H PRN PRN (Reason: Pain) 3 Days Qty: 12 RF: 0 gabapentin 300 mg capsule 300 mg PO QHS RF: 0 metformin 500 MG tablet 1,000 mg PO DAILY Qty: 0 RF: 0 Other Ambulatory Orders: 30-Day Event Recorder (Routine) Location: None Selected Ordered By: Dr. Goldy Holder Referrals / Follow Up: Tracy Louie DO [Primary Care Provider] - Disposition Disposition (needs filled in before D/C Order can be placed): Home, Self Care Charges/Coding Visit Charges OBSV E&M: 29416 Observation care discharge
--- NOTE | 2021-05-28 11:43 | CASEMGMT ---
SW completed a PHQ 9 as patient had a TIA. She scored an 8 which indicates mild depression. She was open to receiving a list of counseling resources and information on [facility] Stroke support group. This information was given to patient. Shaina LOVE
[2021-05-28] MEDS: Pantoprazole Sodium 40 MG Tablet PO (14:47)
== END 2021-05-28 11:32 | disposition home or self-care (01) ==
LOC: ED 11:17 → PCU 14:06
PROVIDERS: Admitting Provider Internal Medicine; Emergency Provider Emergency Medicine; PCP Internal Medicine; Visit Provider Internal Medicine
DX: G45.9 Transient cerebral ischemic attack, unspecified (principal); G43.909 Migraine, unspecified, not intractable, without status migrainosus; R53.1 Weakness; I10 Essential (primary) hypertension; J45.909 Unspecified asthma, uncomplicated; R29.701 NIHSS score 1; E78.00 Pure hypercholesterolemia, unspecified; M19.90 Unspecified osteoarthritis, unspecified site; E11.9 Type 2 diabetes mellitus without complications; Z79.899 Other long term (current) drug therapy; Z86.711 Personal history of pulmonary embolism; Z79.84 Long term (current) use of oral hypoglycemic drugs; Z79.51 Long term (current) use of inhaled steroids
CPT/HCPCS: 36415; 70450; 70496; 70498; 70551; 71045; 80048; 80061; 82962; 83036; 83735; 84443; 84484; 85025; 85610; 85730; 87426; 93005; 93306; 94640; 94762; 96372; 96374; 96375; 96376; 97162; 97165; 99218; 99251; 99283; Q9957; Q9967; A4216; C8929; G0378; G0463; J2405; J3490

== ENCOUNTER → 2021-07-15 17:14 | Outpatient (CLI) | payer OTHER, SELFPAY ==
[2021-07-21 13:25] LABS: HPV APTIMA, High Risk Negative (Negative)
== END ==
PROVIDERS: PCP Internal Medicine; Visit Provider Obstetrics & Gynecology
DX: Z12.4 Encounter for screening for malignant neoplasm of cervix (principal)
CPT/HCPCS: 87624; 88175; G0145

== ENCOUNTER → 2021-07-20 10:57 | Outpatient (CLI) | payer OTHER, SELFPAY ==
[2021-07-20 16:09] LABS: Erythrocyte Sedimentation Rate 25 mm/hr (0-30)
[2021-07-22 14:38] LABS: ANTINUCLEAR ANTIBODIES DIRECT Negative (Negative)
[2021-07-27 10:09] LABS: Complement C3 177 mg/dL (82-167); Dilute Russell Viper Venom 48.2 sec (0.0-47.0); PTT-LA 33.7 sec (0.0-51.9); Protein C Antigen 121 % (60-150); Protein S, Free 150 % (61-136); Thrombin Time 19.9 sec (0.0-23.0)
[2021-07-27 16:34] LABS: Anti-Cardiolipin Ab, IgA, Qn < 9 APL U/mL (0-11); Anti-Cardiolipin Ab, IgG, Qn < 9 GPL U/mL (0-14); Anti-Cardiolipin Ab, IgM, Qn 10 MPL U/mL (0-12); Anti-Thrombin 3 AG, Immunol 70 % (72-124); Antithrombin 3 Function 82 % (75-135); Complement CH50 > 60 U/mL (>41); Dilute Prothrombin Time (dPT) 43.5 sec (0.0-47.6); Interpretation Comment: (.); Protein C, Functional 150 % (73-180); Protein S, Funtional 80 % (63-140); Protein S, Total 148 % (60-150); dPT Confirm Ratio 1.27 Ratio (0.00-1.34)
== END ==
PROVIDERS: PCP Internal Medicine; Referring Provider Psychiatry & Neurology Neurology; Visit Provider Psychiatry & Neurology Neurology
DX: G45.9 Transient cerebral ischemic attack, unspecified (principal)
CPT/HCPCS: 36415; 81240; 81241; 85300; 85301; 85302; 85303; 85305; 85306; 85652; 86038; 86147; 86160; 86162; 86225; 86235

== ENCOUNTER → 2021-07-22 13:50 | Outpatient (CLI) | payer OTHER, SELFPAY ==
[2021-07-26 13:23] LABS: Vitamin D 1,25-Dihydroxy 32.4 pg/mL (19.9-79.3)
== END ==
PROVIDERS: PCP Internal Medicine; Referring Provider Psychiatry & Neurology Neurology; Visit Provider Psychiatry & Neurology Neurology
DX: E55.9 Vitamin D deficiency, unspecified (principal)
CPT/HCPCS: 36415; 82652

== ENCOUNTER → 2021-07-30 13:27 | Outpatient (CLI) | payer OTHER, SELFPAY | PROVIDERS: PCP Internal Medicine; Visit Provider Obstetrics & Gynecology | DX: Z03.818 Encounter for observation for suspected exposure to other biological agents ruled out (principal) | CPT/HCPCS: 87635; U0005; U0003 ==

== ENCOUNTER → 2021-07-31 09:49 | Outpatient (CLI) | payer OTHER, SELFPAY ==
--- NOTE | 2021-07-31 09:52 | BI_ITS ---
MAMMOGRAPHY - BILATERAL SCREENING REASON FOR EXAM: Female, 66 years old. Routine annual screening examination. PERTINENT HISTORY: Non-contributory. TECHNIQUE: Digital bilateral breast pb (3D mammographic acquisition) in the CC and MLO projections. 2-D mediolateral oblique (MLO) and craniocaudad (CC) views of both breasts were obtained. CAD: Full Field Digital Mammography with Computer Added Detection was performed. COMPARISON: Comparison is made with prior study dated 08/11/2017 and 06/09/2016. FINDINGS: Breast Composition: The breasts are almost entirely fatty. There are no dominant masses or suspicious calcifications. Stable small benign-appearing bilateral axillary. No other significant abnormalities are identified. There has been no significant change since the prior study. BI/SCRN MAMM (CAD)W/PB BILAT IMPRESSION: Stable bilateral screening mammogram. Yearly follow-up mammogram recommended. (A) ASSESSMENT CATEGORY: BIRADS Category 2: Benign. A letter regarding these results will be sent to the patient by the facility within 30 days. Approximately 10% of breast cancers are not detected by mammography. A normal mammogram should not delay biopsy of a clinically suspicious abnormality. [id number] Electronically Signed: Harjeet Mullen MD at 8:53 EST , Service support ,
== END ==
PROVIDERS: PCP Internal Medicine; Referring Provider Obstetrics & Gynecology; Visit Provider Obstetrics & Gynecology
DX: Z12.31 Encounter for screening mammogram for malignant neoplasm of breast (principal)
CPT/HCPCS: 77063; 77067

== ENCOUNTER 2021-08-03 13:00 | Outpatient (RCR) | payer OTHER, SELFPAY ==
--- NOTE | 2021-06-10 15:22 | HP.PTEVAL ---
Patient's Visit Information LYN HUFF is a 66 year old F referred to Physical Therapy by Dr. Tracy Louie DO with a diagnosis of CVA, LLE weakness and unstable. Date of Evaluation: 06/10/21 Physical Therapist: Parveen Canela - Visit Plan Frequency: 2x /Week Duration: 4 Weeks Plan: Continue to work on improving LE strength and balance. - Subjective Pt. is a 66 y.o. female who woke up the morning of 05-27-21 and noticed that her left side felt shaky and weird for her. She eventually went to the ER and had CT scan of her brain which showed that she had a stroke. Pt. PLOF includes no history of strokes in the past before this. She is currently been using a quad cane since her stroke. Pt. did not use an assistive device prior to this. Pt. denies any falls. She denies any numbness or tingling in her legs. Pt. has difficulty with walking, standing for long periods of time, walking on uneven ground, ascending/descending stairs, squatting, getting up from a chair, housework, and work activity. Pt. 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 Her goal with physical therapy is to be able to walk with no cane and get back to work. She has had previous physical therapy for his left knee, right elbow, and right shoulder. Pt. denies any pain but does get vertigo at times as well as headache. Her PMH includes shingles, HBP controlled with medication, type II diabetes, asthma, right shoulder RTC repair, cyst removed from abdomen, and gall bladder removed. Pt. lives alone in a one story home with one step to enter. Her hobbies include crafting and reading. - Objective Palpation- No tenderness to palpation. Right LE strength hip flexion 5/5, abduction 5/5, adduction 5/5, extension 5/5, knee flexion 5/5, knee extension 5/5, ankle DF 5/5, PF 5/5. Left LE strength hip flexion 4+/5, abduction 4+/5, adduction 4+/5, extension 4+/5, knee flexion 5/5, knee extension 5/5, ankle DF 5/5, PF 5/5. Sensation- WNL bilateral lower extremities. Tandem stance right [30 secs], left [30 secs]. SLS on right [11 secs], left [8 secs]. 30 sec sit to stand- x 7 with no arm assist. Nose to finger coordination [-], Alternating step tap [-], Heel to lopez [-],. Oculomotor exam- smooth pursuit [-], gaze hold [-], saccades [-]. Gait- Pt. ambulates with quad cane and step to gait pattern. - Balance/Special Test Scores Lower Extremity Functional Score: 19 - Goals Goal 1:: Pt. will report no falls. Goal Time Frame: 4-6 Weeks Goal 2:: Pt. will be able to walk for at least 20 minutes with no rest break and no assistive device. Goal Time Frame: 4-6 Weeks Goal 3:: Pt. will be able to ambulate with no assistive device or gait deviations. Goal Time Frame: 4-6 Weeks Goal 4:: Pt. ascend/descend a flight of stairs with alternating step pattern and unilateral handrail. Goal Time Frame: 4-6 Weeks Goal 5:: Pt. will be able to complete at least 10 sit to stands in 30 secs with no arm support in order to improve mobility. Goal Time Frame: 4-6 Weeks - Rehabilitation Potential Physical Therapy Diagnosis: Decreased LE strength and balance Rehabilitation Potential: Good - Anticipated Interventions Patient/Client Instruction: Educate patient on: Condition, Plan of Care, Benefits of Fitness Program For the Purpose of:: To decrease pain, To decrease swelling/inflammation, To increase ROM, To improve ability to perform ADL's, To improve performance and independence with ADL's, To assume or resume ADL's, To improve tolerance to ADL's Therapeutic Exercise to Include: Strength training, Endurance training, Balance training, Flexibilty training, Gait and locomotor training Comment: Focus on improving LE strength and balance. For the Purpose of:: To decrease pain, To decrease swelling/inflammation, To improve ability to perform ADL's, To improve performance and independence with ADL's, To assume or resume ADL's, To improve tolerance to ADL's Functional Training to Include: ADL Training, Gait training For the Purpose of:: To decrease pain, To decrease swelling/inflammation, To increase ROM, To improve ability to perform ADL's, To improve performance and independence with ADL's, To assume or resume ADL's, To improve tolerance to ADL's Assistive Devices: Cane For the Purpose of:: To decrease pain, To decrease swelling/inflammation, To increase ROM, To improve ability to perform ADL's, To improve performance and independence with ADL's, To improve endurance, To improve balance, To assume or resume ADL's, To improve tolerance to ADL's Thank you for the opportunity to evaluate your patient. For Medicare and Medicare HMO plans, please review the plan of care and approve it. It will need to be FAXED BACK to us at [phone] for Medicare purposes. For Medicare only, by signing this I certify the plan of care. Please let me know if there are questions or concerns regarding this plan of care. Physician Signature: Date:
--- NOTE | 2021-07-15 13:53 | HP.PTREVAL_ITS ---
Dr. Tracy Louie, DO, It has been my pleasure to treat LYN HUFF over the last 9 visits for CVA, LLE weakness and unstable. Please see the progress note below for an update on the physical therapy plan of care! Subjective: Pt. states that she is not feeling the best today. She reports that she has a headache today. Pt. reports that therapy has really helped for example she is able to walk without the cane more and getting up from the chair is easier. Pt. reports that stairs can still be challenging for her, getting down to the floor, and walking on uneven ground. She has a follow up with her neurologist next Monday. She is currently still off work and will see doctor at the end of July. Objective/Function: Lyn has come to 9 sessions of physical therapy focusing on improving LE strength and balance. Reviewed pt. goals for therapy and she has met some goals and is progressing towards meeting other goals for therapy. At this time, she would benefit from a few more weeks of therapy in order to meet all of her goals and improve her mobility. Pt. has a follow up with her neurologist next week. Plan Plan: Continue to work on improving LE strength, endurance, and balance. Will transfer care to another PT at this time. Balance/Gait/Functional tests - Balance/Special Test Scores Lower Extremity Functional Score: 19 Goals Goal 1:: Pt. will report no falls. Goal Time Frame: 4-6 Weeks Goal Progress: Goal Met Goal 2:: Pt. will be able to walk for at least 20 minutes with no rest break and no assistive device. Goal Time Frame: 4-6 Weeks Goal Progress: Progressing Goal 3:: Pt. will be able to ambulate with no assistive device or gait deviations. Goal Time Frame: 4-6 Weeks Goal Progress: Goal Met Goal 4:: Pt. ascend/descend a flight of stairs with alternating step pattern and unilateral handrail. Goal Time Frame: 4-6 Weeks Goal Progress: Progressing Goal 5:: Pt. will be able to complete at least 10 sit to stands in 30 secs with no arm support in order to improve mobility. Goal Time Frame: 4-6 Weeks Goal Progress: Goal Met Anticipated Interventions Patient/Client Instruction: Educate patient on: Condition, Plan of Care, Benefits of Fitness Program For the Purpose of:: To decrease pain, To decrease swelling/inflammation, To increase ROM, To improve ability to perform ADL's, To improve performance and independence with ADL's, To assume or resume ADL's, To improve tolerance to ADL's Therapeutic Exercise to Include: Strength training, Endurance training, Balance training, Flexibilty training, Gait and locomotor training Comment: Focus on improving LE strength and balance. For the Purpose of:: To decrease pain, To decrease swelling/inflammation, To imp rove ability to perform ADL's, To improve performance and independence with ADL's, To assume or resume ADL's, To improve tolerance to ADL's Functional Training to Include: ADL Training, Gait training For the Purpose of:: To decrease pain, To decrease swelling/inflammation, To increase ROM, To improve ability to perform ADL's, To improve performance and independence with ADL's, To assume or resume ADL's, To improve tolerance to ADL's Assistive Devices: Cane For the Purpose of:: To decrease pain, To decrease swelling/inflammation, To increase ROM, To improve ability to perform ADL's, To improve performance and independence with ADL's, To improve endurance, To improve balance, To assume or resume ADL's, To improve tolerance to ADL's Please do not hesitate to contact me at [phone] by phone or if you have questions or concerns regarding this new plan of care! Sincerely, Parveen Canela
--- NOTE | 2021-10-06 15:07 | HP.PTDCNRP_ITS ---
LYN HUFF was seen in my office for initial evaluation on 06/10/21. The following Plan of Care was established for this patient: Initial Frequency: 2x /Week Initial Duration: 4 Weeks Patient/Client Instruction: Educate patient on: Condition, Plan of Care, Benefits of Fitness Program For the Purpose of:: To decrease pain, To decrease swelling/inflammation, To increase ROM, To improve ability to perform ADL's, To improve performance and independence with ADL's, To assume or resume ADL's, To improve tolerance to ADL's Therapeutic Exercise to Include: Strength training, Endurance training, Balance training, Flexibilty training, Gait and locomotor training For the Purpose of:: To decrease pain, To decrease swelling/inflammation, To improve ability to perform ADL's, To improve performance and independence with ADL's, To assume or resume ADL's, To improve tolerance to ADL's Functional Training to Include: ADL Training, Gait training For the Purpose of:: To decrease pain, To decrease swelling/inflammation, To increase ROM, To improve ability to perform ADL's, To improve performance and independence with ADL's, To assume or resume ADL's, To improve tolerance to ADL' s Assistive Devices: Cane For the Purpose of:: To decrease pain, To decrease swelling/inflammation, To increase ROM, To improve ability to perform ADL's, To improve performance and independence with ADL's, To improve endurance, To improve balance, To assume or resume ADL's, To improve tolerance to ADL's This patient was last seen in our office . Pertinent comments regarding their Physical therapy will appear below: Patient has attended PT in over 30 days- appropriate to be d/c from PT- follow up with MD for further evaluation. At this point I will be discontinuing this patient from physical therapy. I would be happy to see this patient again in the future if found appropriate by the physician. Thank you! Karen Galo, CHERRIET Balance/Gait/Functional tests - Balance/Special Test Scores Lower Extremity Functional Score: 61 TUG Test Time Seconds: 9.17 30 Second Chair Rise Test Seconds: 17
== END 2021-08-03 19:00 | disposition home or self-care (01) ==
LOC: PT 13:00
PROVIDERS: PCP Internal Medicine; Referring Provider Internal Medicine; Visit Provider Internal Medicine
DX: I69.344 Monoplegia of lower limb following cerebral infarction affecting left non-dominant side (principal)
CPT/HCPCS: 97110; 97162; 97164

== ENCOUNTER 2021-08-05 10:57 | Day surgery (SDC) | payer OTHER, SELFPAY ==
[2021-07-30 12:47] LABS: Hematocrit 43.5 % (37-47); Hemoglobin 14.7 g/dL (12.0-15.0); Mean Corp Hgb Conc 33.8 g/dL (32-36); Mean Corpuscular Hgb 30.9 pg (27.0-32.0); Mean Corpuscular Volume 91.6 fL (81-99); Mean Platelet Vol. 9.3 fl (6.2-12.0); Platelet Count 328 K/mm3 (150-450); RBC Distribution Width CV 13.2 % (11.6-14.6); RBC Distribution Width SD 44.1 fl (35.1-43.9); Red Blood Count 4.75 M/mm3 (4.2-5.4); White Blood Count 8.6 K/mm3 (4.4-11.0)
[2021-07-30 13:08] LABS: Anion Gap 5 (5-15); BUN 17 mg/dL (7-18); BUN/Creat Ratio 17.7 RATIO (10-20); Calcium,Total 9.3 mg/dL (8.5-10.1); Chloride 104 mmol/L (98-107); Creatinine, Serum 0.96 mg/dL (0.55-1.02); EST Glomerular Filtration Rate 62 mL/min (>60); Est Glom Filt Rate - Afr Amer 75 mL/min (>60); Glucose 181 mg/dL (74-106); Potassium 4.4 mmol/L (3.5-5.1); Sodium Level 137 mmol/L (136-145)
[2021-08-05] VITALS (9 sets, daily range): BP systolic 113–138; BP diastolic 69–78; PULSE 68–79; RESP 16; TEMP 36–36.3; O2SAT 94–95; BMI 47.9
[2021-08-05] MEDS: Lactated Ringers 1,000 ML 120 ML IV ×2 (11:56→13:55)
[2021-08-05 12:00] LABS: Bedside Glucose 186 mg/dL (70-110)
--- NOTE | 2021-08-05 12:16 | HP.PCM.OB_ITS ---
History and Physical Date of Admission: 08/05/21 Surgical History and Physical Date: 08/05/2021 Name: LYN CLIFTON Age: 66 Date of : 1955 Lyn Clifton, a 66 year old female 0 0 0 0 0, presents for Hysteroscopy, D on August 05, 2021 at 2:30. -- Pt presents with postmenopausal bleeding, for hysteroscopy D&C. MEDICATIONS HISTORY: Patient is also takin. lisinopril-hydrochlorothiazide 20-12.5 mg Tablet, daily 2. metformin 500 mg tablet, bid 3. aspirin 81 mg chewable tablet, daily 4. Breo Ellipta 200 mcg-25 mcg/dose powder for inhalation, daily 5. lisinopril 2.5 mg tablet, daily 6. omeprazole 40 mg capsule,delayed release, daily 7. ProAir HFA 90 mcg/actuation aerosol inhaler, prn 8. Singulair 10 mg tablet, daily ALLERGIES: NKA, Citalopram and Burning skin Infections - Chicken pox and Measles Illnesses - endometriosis, hypercholesterolemia, hirsuitism, infertility, depression, HTN, DM type 2 and Asthma Accidents - no injuries of consequence Hospitalizations - see surgery IBS, BILATERAL PULMONARY EMBOLISM 02/20/17, Shingles 2020 and Mini Stroke 2020; Review of Systems: GENERAL - Denies fever, or chills SKIN - Denies skin changes EYES - Denies visual changes EARS - Denies difficulty hearing NOSE - Denies nasal congestion or bleeding MOUTH - Denies sore throat or difficulty swallowing NECK - Denies pain or swelling RESPIRATORY - Denies shortness of breath or wheezing CARDIOVASCULAR - Denies palpitations or chest pain GASTROINTESTINAL - Denies nausea, vomiting, diarrhea, constipation GENITOURINARY - Denies dysuria, frequency of urination, incontinence of urine MUSCULOSKELETAL - Denies joint or muscle pain NEUROLOGICAL - Denies localized numbness or weakness PSYCHIATRIC - Denies depression or anxiety ENDOCRINE - Denies heat or cold intolerance, weight loss or gain HEMATO-IMMUNOLOGIC - Denies excessive bleeding with cuts SOCIAL HISTORY: Alcohol Use - denies drinking Smoking - denies smoking Diet - no particular diet and caffeine < 2 drinks per day Lifestyle - moderate stress lifestyle, sedentary lifestyle, and Exercise - minimal Seat Belt Use - most of the time Employer - [employer] 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 Mother: Stroke. Father: skin cancer. Maternal Aunt: DM II. MENSTRUAL HISTORY: LMP Known?- POSTMENOPAUSAL, LMP - 10/24/02, Age Onset Menarche - 12 PAST PREGNANCIES: Total Pregnancies - 0; Full Term Pregnancies - 0; Premature - 0; Abortions, Induced - 0; Abortions, Spontaneous - 0; Ectopics - 0; Multiple Births - 0; Living Children - 0 SURGICAL HISTORY: 1. 01/16/2005 Rotator cuff of rt shoulder ; [place] - 2. abdomenal cyst removed in 2003 ; - 3. 1970S L/S ; - 4. Appendectomy, 1980 CHECKED OVARIES AND TUBES ; - 5. GALLBLADDER, 1999 ; - 6. 12/07/2016 [facility], polypectomy ; Jessica Couch M.D. - PMB, Endometrial polyp 7. 12/07/2016 [facility], endometrial polypectomy ; Jessica Couch M.D. - 8. 04/19/2012 hysteroscopy, D and [facility] ; Jessica Couch M.D. - PHYSICAL EXAM BP- 108/84 Sitting, Right arm, large cuff Weight- 264.68664 lbs Height- 62.00 inch BMI:[id number] CONSTITUTIONAL - NAD, well nourished, and well developed SKIN - No rash, lesions, or ulcers HEENT - Normocephalic, PERRLA, EOMI NECK - No nodes, no nuchal rigidity and thyroid normal size and texture ABDOMEN - Without hepatosplenomegaly, distention, masses, rebound, or guarding; normal bowel sounds; no hernias EXTREMITIES - No edema or calf tenderness NEUROLOGICAL - Cranial nerves II-XII grossly intact PSYCHIATRIC - A and O to time, place, person, mood and affect External Genital Vagina - non-tender without lesions Urethra/Urethral Meatus - non-tender Bladder - non-tender Vagina - vaginal fonseca are pink and moist without loss of rugae and no evidence of atrophy Cervix - without cervical motion tenderness and has normal size and features without evident lesions Uterus - 5-6 cm in size, mobile and nontender Adnexa - clear without masses or tenderness ASSESSMENT/PLAN: 1. Postmenopausal Bleeding Patient with postmenopausal bleeding. History of postmenopausal bleeding. 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 Now off Xarelto and on aspirin for stroke 2 months ago, with left- sided deficits. Patient in need of hysteroscopy and D in the past for limited pelvic exams with narrow introitus and body habitus. Discussed risk for VTE, will give Lovenox postoperatively x1 dose Follow-up 2 weeks postoperatively
--- NOTE | 2021-08-05 12:30 | EMB_PTH ---
PATIENT: LYN HUFF LOC: [facility] [place] U#:[id number] AGE/SX: 66/F ROOM: RE08/05/[address]: Dr. Rhett Esparza MD : 1955 BED: DIS: 08/05/2021 SPEC #: [id number] RECD: 08/05/21 13:47 STATUS: MARINO RE #: [id number] CARA: 08/05/21 12:[address]: Rhett Esparza DEPT: SURGICAL PATHOLOGY RECD BY: Katie Zapata ENTERED: 08/06/21 10:51 SP TYPE: ENDOM BX/C TAMY DR: Dr. Tracy Louie, DO Tissues: Endometrium, NOS Procedures: Surgery Specimen Level IV HEADER OPERATION: Hysteroscopy, dilation and curettage PRE-OP DIAGNOSIS: Postmenopausal bleeding TISSUE SUBMITTED: Endometrial curettings MICROSCOPIC DIAGNOSIS Endometrium, curettings: Scant strips of benign superficial glandular and squamous mucosa. AM:rodney 08/09/2021 MICROSCOPIC DESCRIPTION Slides are reviewed. GROSS DESCRIPTION Received in fixative is one container labeled with the patient's name and designated endometrial curettings. The specimen consists of multiple irregular fragments of mucoid light pederson tissue that in aggregate measure 1 x 0.5 x <0.1 cm. The specimen is totally submitted in one cassette. / AM:rodney 08/06/21 TC:5 CPT: 73522
--- NOTE | 2021-08-05 13:27 | PCM.DC ---
Discharge Instructions Diet Discharge Diet: No restrictions Activity Discharge Activity: Return to Normal Activity, May Drive and May Shower May resume sexual activity in: 4-6 weeks Weight Bearing Status: Weight bearing as tolerated Dressing / Incision Call your doctor if your incision/area has: Continuous Slow Oozing and Foul Smelling Discharge Call your doctor if you observe: Fever of 101 or Higher, Shortness of breath and Chest pain Follow Up Care Please Follow Up With: Rhett Esparza MD When: 2 weeks postoperatively Test Results: Test results from this visit will be discussed in further detail at your follow-up appointment, if applicable. Discharge Plan Admission Attending Provider: Rhett Esparza Primary Care Provider: Tracy Louie Discharge Orders/Prescriptions Prescriptions: No Action omeprazole 40 mg capsule,delayed release(DR/EC) 40 mg PO DAILY PRN (Reason: GERD) RF: 0 metformin 500 mg tablet extended release 24 hr 500 mg PO DAILY RF: 0 ibuprofen 200 mg capsule 600 mg PO Q6H PRN (Reason: Pain) RF: 0 rosuvastatin 10 mg tablet 10 mg PO DAILY Qty: 30 RF: 3 meclizine 25 mg tablet 25 mg PO TID PRN (Reason: dizziness) Qty: 90 RF: 2 lisinopril-hydrochlorothiazide 20-12.5 mg tablet 1 tab PO DAILY RF: 0 montelukast 10 mg tablet 10 mg PO DAILY RF: 0 albuterol sulfate 90 mcg/actuation HFA aerosol inhaler 2 puff INHALATION Q6H PRN PRN (Reason: Cough) RF: 0 Breo Ellipta 200-25 mcg/dose blister with device 1 inh INHALATION DAILY RF: 0 aspirin 81 mg Tablet,Delayed Release (Dr/Ec) 81 mg PO BREAKFAST Qty: 30 RF: 2 Disposition Discharge Orders: Discharge Patient (Routine); Ordered 08/05/21 Ordered By: Dr. Rhett Esparza
--- NOTE | 2021-08-05 13:28 | OP.PCM_ITS ---
Report of Operation Date of Procedure: 08/05/21 Pre-Operative Diagnosis: Postmenopausal bleeding Post-Operative Diagnosis: Postmenopausal bleeding Surgery/Procedure Performed:: Hysteroscopy, dilation and curettage Description of Surgical Findings:: Surgeon: Rhett Esparza MD Anesthesia: MAC EBL: 10 cc Urine output: 50 cc IV fluids: 700 cc Complications none Specimen: Endometrial curettings Findings: Hysteroscopy with no pathology noted. Minimal to moderate amount of endometrial tissue sent to pathology. Consent: Patient with post menopausal bleeding elects for hysteroscopy D&C. Patient understands the risk of the procedure include but are not limited to visceral or vascular injury, prolonged hospitalization, blood loss and need for transfusion, reoperation. Patient state understanding and wished to proceed. All questions were answered and consent was signed. Procedure: Patient was brought back to the OR where MAC anesthesia was found to be adequate. Patient was prepared and draped in dorsolithotomy position with yel lowfin stirrups. Weighted speculum was placed in posterior aspect of vagina and cervical dilators were used to dilate the cervix. Hysteroscope was inserted under direct visualization and above findings were noted. Endometrial curetting performed in all quadrants under direct visualization, sample sent to pathology. Good hemostasis was noted. All counts were correct x2. Patient tolerated the procedure well and was brought to recovery in a stable condition.
[2021-08-05] MEDS: Enoxaparin 40 MG/0.4 ML Syringe SC (14:00)
== END 2021-08-05 15:10 | disposition home or self-care (01) ==
LOC: SDC 10:58 → AC 10:58
PROVIDERS: PCP Internal Medicine; Referring Provider Obstetrics & Gynecology; Visit Provider Obstetrics & Gynecology
PROC: 0UDB8ZZ Extraction of Endometrium, Via Natural or Artificial Opening Endoscopic (ICD-10-PCS; CPT 58558; principal; 2021-08-05 12:20)
DX: N95.0 Postmenopausal bleeding (principal); E78.00 Pure hypercholesterolemia, unspecified; I10 Essential (primary) hypertension; E11.9 Type 2 diabetes mellitus without complications; F32.A Depression, unspecified; J45.909 Unspecified asthma, uncomplicated; K58.9 Irritable bowel syndrome, unspecified; Z79.01 Long term (current) use of anticoagulants; Z79.82 Long term (current) use of aspirin; Z79.51 Long term (current) use of inhaled steroids; Z79.84 Long term (current) use of oral hypoglycemic drugs; Z80.1 Family history of malignant neoplasm of trachea, bronchus and lung; Z82.49 Family history of ischemic heart disease and other diseases of the circulatory system; Z83.3 Family history of diabetes mellitus; Z86.73 Personal history of transient ischemic attack (TIA), and cerebral infarction without residual deficits
CPT/HCPCS: 58558; 36415; 80048; 82962; 85027; 86850; 86900; 86901; 88305; J7120; J2405

== ENCOUNTER 2021-12-14 15:50 | Outpatient (CLI) | payer OTHER, SELFPAY ==
[2021-12-17 09:44] LABS: Anti-Thrombin 3 AG, Immunol 61 % (72-124); Antithrombin 3 Function 79 % (75-135); Complement C3 156 mg/dL (82-167)
== END 2021-12-14 23:59 | disposition home or self-care (01) ==
LOC: MTLAB 15:51
PROVIDERS: PCP Internal Medicine; Referring Provider Psychiatry & Neurology Neurology; Visit Provider Psychiatry & Neurology Neurology
DX: G45.9 Transient cerebral ischemic attack, unspecified (principal)
CPT/HCPCS: 36415; 85300; 85301; 86160

== ENCOUNTER → 2022-04-27 | Outpatient (CLI) | payer OTHER, SELFPAY ==
[2022-04-27 15:23] LABS: Anion Gap 7 (5-15); BUN 20 mg/dL (7-18); BUN/Creat Ratio 21.3 RATIO (10-20); Calcium,Total 9.8 mg/dL (8.5-10.1); Chloride 105 mmol/L (98-107); Creatinine, Serum 0.94 mg/dL (0.55-1.02); EST Glomerular Filtration Rate 64 mL/min (>60); Est Glom Filt Rate - Afr Amer 77 mL/min (>60); Glucose 142 mg/dL (74-106); Magnesium 1.8 mg/dL (1.6-2.6); Potassium 3.8 mmol/L (3.5-5.1); Sodium Level 139 mmol/L (136-145); Thyroid Stim Hormone (TSH) 0.89 uIU/mL (0.358-3.74)
== END | disposition home or self-care (01) ==
LOC: LAB 14:23
PROVIDERS: PCP Internal Medicine; Referring Provider Internal Medicine Cardiovascular Disease; Visit Provider Internal Medicine Cardiovascular Disease
DX: I47.2 Ventricular tachycardia (principal)
CPT/HCPCS: 36415; 80048; 83735; 84443

== ENCOUNTER 2022-05-07 11:27 | Inpatient (IN) | payer OTHER, MEDICARE, SELFPAY ==
[2022-05-07] VITALS (15 sets, daily range): BP systolic 110–146; BP diastolic 51–79; PULSE 72–89; RESP 10–27; TEMP 36.2–37; O2SAT 95–99; BMI 45.3; BMI 44.6
--- NOTE | 2022-05-07 11:41 | EKG12_ITS ---
Test Reason : STROKE TEAM Blood Pressure : / mmHG Vent. Rate : 073 BPM Atrial Rate : 073 BPM P-R Int : 124 ms QRS Dur : 082 ms QT Int : 410 ms P-R-T Axes : 031 044 065 degrees QTc Int : 451 ms Normal sinus rhythm Low voltage QRS Borderline ECG Confirmed by DACIA GONZALEZ, EDI ([id number]), newspaper photo editor EVANGELIST HUNT ([id number]) on 05/10/2022 7:54:46 AM Referred By: Confirmed By:EDI PEDERSON MD
--- NOTE | 2022-05-07 11:41 | CT_ITS ---
STUDY: CT HEAD STROKE PROTOCOL W/O CONTRAST INJECTION REASON FOR EXAM: Female, 67 years old. Neuro deficit, acute, stroke suspected RADIATION DOSAGE (If Supplied By Facility): CTDIvol = ( ) mGy, DLP = ( ) mGycm TECHNIQUE: Transaxial CT imaging of the brain was performed without administration of intravenous contrast material. Individualized dose optimization techniques were used for this CT. COMPARISON: 05/27/2021 FINDINGS: Normal soft tissue structures. There is hyperostosis frontalis internus. Normal size ventricles and extra-axial spaces for the patient''s age. Normal white matter tracts of the cerebral hemispheres. Normal basal ganglia and thalami. Normal brainstem. Normal cerebellum. There is no intracranial hemorrhage. There are no findings of an acute ischemic infarction. Normal visualized paranasal sinuses. ASPECT score: CT/STROKE Brain/Head without Cont IMPRESSION: Normal unenhanced CT scan of the brain. N.B. : The above Results were Read Back by Eric Ayala MD to Leticia Santillan and understanding confirmed on 05/07/2022 11:54:43 (ET). Electronically Signed: Eric Ayala MD at 11:55 EDT ,
--- NOTE | 2022-05-07 11:41 | CT_ITS ---
STUDY: CTA HEAD AND NECK WITH CONTRAST REASON FOR EXAM: Female, 67 years old. Neuro deficit, acute, stroke suspected RADIATION DOSAGE (If Supplied By Facility): CTDIvol = ( 22.38 ) mGy, DLP = ( 711.27 ) mGycm TECHNIQUE: CT angiography was performed with a multi-detector CT scanner. Data acquisition was obtained from the skull base through the vertex following intravenous administration of IV 100mL Isovue-370. MIP images were reconstructed from the axial data set. Post-processing of the angiographic images was performed, with multiplanar reformation and 3D reconstruction. Individualized dose optimization techniques were used for this CT. COMPARISON: No relevant priors. FINDINGS: Normal bilateral petrous carotid arteries. Normal right cavernous carotid artery with a normal supraclinoid bifurcation. Normal left cavernous carotid artery with a normal supraclinoid bifurcation. Normal right A1 segments of the anterior cerebral artery. Normal left A1 segments of the anterior cerebral artery. Normal intact anterior communicating artery (ACOM). Normal bilateral A2 segments of the anterior cerebral arteries. Normal right M1 and M2 segments of the middle cerebral arteries, with a normal M1 bifurcation. Normal left M1 and M2 segments of the middle cerebral arteries, with a normal M1 bifurcation. There is a persistent origin of the right posterior cerebral artery with absence of the posterior communicating artery (PCOM). There is a persistent origin of the left posterior cerebral artery with absence of the posterior communicating artery (PCOM). Normal bilateral vertebral arteries. Normal basilar artery with a normal basilar bifurcation. The visualized bilateral superior cerebellar (SCA) arteries are normal. Normal bilateral P1, P2 and visualized P3 segments of the posterior cerebral arteries. There is no demonstrated aneurysm of the [place]. There is no demonstrated abnormality of the visualized brain. AORTIC ARCH: Normal visualized aortic arch. Normal origins of the brachiocephalic, left common carotid, and left subclavian arteries. RIGHT CAROTID ARTERIES: Normal right common carotid artery (CCA). Normal right common carotid bulb. Normal origin of the right internal carotid (ICA) artery without a hemodynamically significant stenosis. Normal visualized cervical portion of the right internal carotid artery. Normal origin of the right external carotid artery (ECA). LEFT CAROTID ARTERIES: Normal left common carotid artery (CCA). Normal left common carotid bulb. Normal origin of the left internal carotid (ICA) artery without a hemodynamically significant stenosis. Normal visualized cervical portion of the left internal carotid artery. Normal origin of the left external carotid artery (ECA). VERTEBRAL ARTERIES: Normal bilateral vertebral arteries. CT/STROKE CTA Head AND Neck W/Con IMPRESSION: Normal CTA Head and neck with contrast. N.B. : The above Results were Read Back by Eric Ayala MD to Leticia Santillan and understanding confirmed on 05/07/2022 12:48:43 (ET). Electronically Signed: Eric Ayala MD at 12:49 EDT ,
--- NOTE | 2022-05-07 11:41 | NURSING ---
STROKE ALERT CALLED
--- NOTE | 2022-05-07 11:42 | ED.VIS.STROK ---
HPI History of Present Illness Chief Complaint: Neuro S/Sx Informant: patient Onset/Context/Timing Onset: Today Context: Sudden Onset Quality and Location: Positive for Right Leg Parasthesia, Right Arm Weakness and Slurred Speech Current Severity: Mild Maximum Severity: Moderate Narrative Narrative: Patient present secondary to stroke symptoms. She states that she was at work this morning at 1030 when she noticed difficulty moving her right arm. He did not seem to go where she wanted it to go. She then developed slurred speech. EMS was contacted and on their arrival she was much improved. Minerva stroke score and mend exam were negative for them. At this time patient states that she feels she is improved but not quite back to baseline. She reports feeling like her right leg was very heavy, however she was able to move it when asked to do so for testing for EMS. Patient did have a TIA last year affecting her left side. It appears she is on baby aspirin. [facility] Medical History Ambulates with cane Anxiety Arthritis Asthma Carotid artery stenosis Diabetes type 2, controlled Essential hypertension GERD (gastroesophageal reflux disease) Glaucoma History of edema History of gallstones History of hiatal hernia History of IBS History of pain when walking History of pneumonia History of UTI Hormone deficiency IBS (irritable bowel syndrome) Irritant contact dermatitis due to plant Leg cramps Migraine headache Non-smoker DAVID on CPAP Poison jose elias Polycystic ovaries Post-menopausal Pulmonary embolism Pulmonary embolism Shingles Shortness of breath on exertion Sleep apnea Ulcer Vaginal bleeding Wears glasses Home Medications fluticasone furoate 200 mcg-vilanterol 25 mcg/dose inhalation powder (Breo Ellipta) 1 inh inhalation DAILY 05/02/21 [History Last Taken 05/26/21] lisinopril 20 mg-hydrochlorothiazide 12.5 mg tablet 1 tab PO DAILY 05/02/21 [History Last Taken 05/26/21] montelukast 10 mg tablet 10 mg PO DAILY 05/02/21 [History Last Taken 05/26/21] metformin 500 mg tablet,extended release 24 hr 1,000 mg PO BID 03/30/22 [History Last Taken Unknown] fenofibrate 54 mg tablet See Rx Instructions .Route .COMPLEX #90 tabs 04/13/22 [Rx Last Taken Unknown] hydroxyzine pamoate 25 mg capsule See Rx Instructions .Route .COMPLEX #270 caps 04/13/22 [Rx Last Taken Unknown] albuterol sulfate 90 mcg/actuation aerosol inhaler 2 puff inhalation Q4H PRN Cough 04/22/22 [History Last Taken Unknown] aspirin 81 mg tablet,delayed release 162 mg PO BREAKFAST 04/22/22 [History Last Taken Unknown] vitamin K2 40 mcg tablet 40 mcg PO DAILY 04/22/22 [History Last Taken Unknown] potassium citrate 99 mg capsule mg PO 04/27/22 [History Last Taken Unknown] Allergy/AdvReac Type Severity Reaction Status Date / Time bee venom protein (honey bee) Allergy Unknown unknown Verified 04/27/22 13:35 citalopram AdvReac Severe 'electric Verified 04/27/22 13:35 shocks' Inhaled Anesthetics (Halogen AdvReac Mild Nausea Verified 04/27/22 13:35 Based) poison jose elias Allergy Unknown unknown Uncoded 04/27/22 13:35 Family History Mother Myocardial infarction CVA (cerebral vascular accident) Hypertension Heart disease Father Myocardial infarction Skin cancer Asthma Respiratory disease Cancer prostate Brother Asthma Myocardial infarction Respiratory disease Heart disease Sister Autoimmune disorder Lupus Skin cancer Cancer lung Sister Autoimmune disorder Surgical History H/O exploratory laparotomy History of D&C History of repair of rotator cuff Hx of cholecystectomy Social History Smoking Status: Never smoker Electronic Cigarette Use: not used second hand exposure: No alcohol intake: never substance use type: does not use caffeine: No ROS ROS ED Constitutional Constitutional ED: Denies chills or fever(s) Eyes Eyes: Denies change in vision or discharge from eye(s) ENT ENT ED: Denies discharge from eye(s), rhinorrhea or sore throat Cardiovascular Cardiovascular: Denies chest pain or palpitations Respiratory/Chest Respiratory/Chest: Denies cough or dyspnea Gastrointestinal Gastrointestinal: Denies abdominal pain, diarrhea, nausea or vomiting Genitourinary Genitourinary ED: Reports difficulty urinating; Denies dysuria Musculoskeletal Musculoskeletal: Denies back pain or extremity pain Integumentary Denies Abrasions or rash Neurologic Neurologic: Reports paresthesias and weakness; Denies headache(s) Allergic/Immunologic Allergic/Immunologic ED: Denies lip swelling or urticaria EXAM Physical Exam Const Vital Signs: 05/07/22 11:28 05/07/22 11:46 05/07/22 11:54 Temperature 98.6 F 98.6 F Temperature Source Temporal Temporal Pulse Rate 89 89 Respiratory Rate 10 L 18 Blood Pressure 146/62 H 139/75 H Blood Pressure Mean 90 96 Pulse Ox 96 96 96 Oxygen Delivery Method Room Air Room Air Room Air 05/07/22 11:55 05/07/22 12:11 05/07/22 12:28 Temperature 98.6 F 97.8 F Temperature Source Temporal Temporal Pulse Rate 87 84 77 Respiratory Rate 27 H 22 H 18 Blood Pressure 139/75 H 134/67 H 144/60 H Blood Pressure Mean 96 89 88 Pulse Ox 97 95 96 Oxygen Delivery Method Room Air Room Air Room Air 05/07/22 12:30 Temperature 98 F Temperature Source Temporal Pulse Rate 78 Respiratory Rate 21 H Blood Pressure 144/60 H Blood Pressure Mean 88 Pulse Ox 96 Oxygen Delivery Method Room Air Positive well nourished and well developed General Appearance ED: well developed HEENT Reports normocephalic and head/scalp atraumatic Eyes PERRL and EOMs intact bilaterally Neck supple Chest Wall inspection of chest normal and palpation of chest normal Resp normal respiratory effort and clear to auscultation bilaterally Cardio regular rate and regular rhythm GI normal to inspection, nondistended, normoactive bowel sounds Palpation: soft Extremity normal to inspection Neuro oriented x3 Neuro Narrative: See NIH stroke score Sensorium / Orientation: alert Motor Exam: strength 5/5 throughout Psych mental status grossly normal Skin no rashes or lesions noted MDM MDM MDM Narrative Medical decision making narrative: At the time of my evaluation patient's NIH score was 2. Stroke alert was initiated. Lab work, EKG, chest x-ray, CT and CTAs obtained. Lab Data Attestation: I reviewed the patient's lab results. Labs: Laboratory Results - last 24 hr 05/07/22 05/07/22 05/07/22 11:13 11:13 11:13 WBC 9.0 RBC 5.01 Hgb 15.8 H Hct 44.9 MCV 89.6 MCH 31.5 MCHC 35.2 RDW Std Deviation 44.6 H RDW Coeff of Chong 13.7 Plt Count 339 MPV 10.1 Immature Gran % (Auto) 0.400 Neut % (Auto) 56.0 Lymph % (Auto) 30.3 Jewell % (Auto) 11.0 H Eos % (Auto) 1.7 Baso % (Auto) 0.6 Absolute Neuts (auto) 5.0 Absolute Lymphs (auto) 2.73 Nucleated RBC % 0 PT 12.0 INR 0.9 APTT 25.3 Sodium 139 Potassium 3.4 L Chloride 106 Carbon Dioxide 24.0 Anion Gap 9 BUN 22 H Creatinine 0.87 Estim Creat Clear Calc 50.99 Est GFR (MDRD) Af Amer 84 Est GFR (MDRD) Non-Af 70 BUN/Creatinine Ratio 25.3 H Glucose 145 H Calcium 9.5 Troponin I High Sens 8 Radiography Diagnostic Testing: Clinical Impression(s) from Imaging Studies Head/Neck CTA 05/07/22 11:41 IMPRESSION: Normal CTA Head and neck with contrast. N.B. : The above Results were Read Back by Eric Ayala MD to Leticia Santillan and understanding confirmed on 05/07/2022 12:48:43 (ET). Electronically Signed: Eric Ayala MD at 12:49 EDT , EKG Initial EKG: Attestation: I personally reviewed and interpreted this EKG as follows: Interpretation: Sinus Rhythm (Sinus at 73 with no acute ischemia.) Treatment and Re-Evaluation Narrative: Portable chest x-ray per my interpretation reveals chronic changes only. EKG reveals no ischemia. Lab work significant only for slightly low potassium at 3.4. Troponin is normal. CT of the head is normal and CTA of the head and neck reveal no acute abnormalities. I am told by nursing staff that [facility] did be minute evaluate the patient. They do not feel she needs tPA as her symptoms are mild and significantly improved. I will discuss with hospitalist regarding admission for remainder of stroke work-up. Stroke Documentation Questions Stroke Team Activated: Yes Discharge Plan Triage Chief Complaint: Neuro S/Sx ED Provider: Leticia Santillan Dx/Rx/DC Orders Clinical Impression: Stroke-like symptoms Prescriptions: No Action metformin 500 mg tablet extended release 24 hr 1,000 mg PO BID Label Comments: DIABETES aspirin 81 mg tablet,delayed release (DR/EC) 162 mg PO BREAKFAST vitamin K2 40 mcg tablet 40 mcg PO DAILY potassium citrate 99 mg capsule PO lisinopril-hydrochlorothiazide 20-12.5 mg tablet 1 tab PO DAILY montelukast 10 mg tablet 10 mg PO DAILY fluticasone furoate-vilanterol [Breo Ellipta] 200-25 mcg/dose blister with device 1 inh INHALATION DAILY Label Comments: INHALE 1 PUFF ONCE A DAY WITH GOOD ORAL CARE albuterol sulfate 90 mcg/actuation HFA aerosol inhaler 2 puff INHALATION Q4H PRN (Reason: Cough) Label Comments: 2 (TWO) AEROSOL SOLN EVERY 4 HOURS NEEDED hydroxyzine pamoate 25 mg capsule See Rx Instructions .ROUTE .COMPLEX Qty: 270 1RF Dose Instruction: TAKE 1 CAPSULE BY MOUTH 3 TIMES A DAY NEEDED FOR DIZZINESS Rx Instructions: TAKE 1 CAPSULE BY MOUTH 3 TIMES A DAY NEEDED FOR DIZZINESS fenofibrate 54 mg tablet See Rx Instructions .ROUTE .COMPLEX Qty: 90 1RF Dose Instruction: TAKE 1 TABLET BY MOUTH DAILY Rx Instructions: TAKE 1 TABLET BY MOUTH DAILY Primary Care Provider: Tracy Louie Referrals: Tracy Louie DO [Primary Care Provider] - Disposition Disposition: Acute Care Hospital [facility] NIHSS NIHSS 1a. Level of Consciousness: Alert; keenly responsive 1b. LOC Questions: Answers BOTH questions correctly. 1c. LOC Commands: Performs both tasks correctly. 2. Best Gaze: Normal 3. Visual: No visual loss 4. Facial Palsy: Normal symmetrical movements 5a. Left Arm: No drift; arm holds 90 (or 45) degrees for full 10 seconds 5b. Right Arm: No drift; arm holds 90 (or 45) degrees for full 10 seconds 6a. Left Leg: No drift; leg holds 30-degree position for full 5 seconds 6b. Right Leg: No drift; leg holds 30-degree position for full 5 seconds 7. Limb Ataxia: Present in 1 limb 8. Sensory: Normal; no sensory loss 9. Best Language: No aphasia; normal 10. Dysarthria: [id number] dysarthria; 11. Extinction and Inattention: No abnormality Total: 2 Stroke Questions Stroke Team Activated: Yes
--- NOTE | 2022-05-07 11:42 | NURSING ---
STROKE ALERT CALLED [phone]
[2022-05-07 11:57] LABS: Absolute Lymphocyte Count 2.73 X10^3/uL (0.83-4.51); Basophil# 0.05 X10^3/uL; Basophil% 0.6 % (0-1); Eosinophil# 0.15 X10^3/uL; Eosinophils% 1.7 % (0-5); Hematocrit 44.9 % (37-47); Hemoglobin 15.8 g/dL (12.0-15.0); Lymphocyte # 2.73 X10^3/ul (0.83-4.51); Lymphocyte % 30.3 % (19-41); Mean Corp Hgb Conc 35.2 g/dL (32-36); Mean Corpuscular Hgb 31.5 pg (27.0-32.0); Mean Corpuscular Volume 89.6 fL (81-99); Mean Platelet Vol. 10.1 fl (6.2-12.0); Monocyte# 0.99 X10^3/uL; NRBC Flagged by Analyzer 0 % (0-5); Neutrophil # 5.04 X10^3/uL (2.7-7.7); Platelet Count 339 K/mm3 (150-450); RBC Distribution Width CV 13.7 % (11.6-14.6); RBC Distribution Width SD 44.6 fl (35.1-43.9); Red Blood Count 5.01 M/mm3 (4.2-5.4)
[2022-05-07 12:02] LABS: International Normalized Ratio 0.9
[2022-05-07 12:03] LABS: Partial Thromboplast Time 25.3 Seconds (24.1-36.2)
[2022-05-07 12:07] LABS: Anion Gap 9 (5-15); BUN 22 mg/dL (7-18); BUN/Creat Ratio 25.3 RATIO (10-20); Calcium,Total 9.5 mg/dL (8.5-10.1); Chloride 106 mmol/L (98-107); Creatinine, Serum 0.87 mg/dL (0.55-1.02); EST Glomerular Filtration Rate 70 mL/min (>60); Est Glom Filt Rate - Afr Amer 84 mL/min (>60); Estimated Creatinine Clearance 50.99 ml/min; Glucose 145 mg/dL (74-106); Potassium 3.4 mmol/L (3.5-5.1); Sodium Level 139 mmol/L (136-145); Troponin-I HS 8 pg/mL (3.0-54.0)
--- NOTE | 2022-05-07 12:16 | RAD_ITS ---
STUDY: X-RAY CHEST REASON FOR EXAM: Female, 67 years old. Neuro deficit, acute, stroke suspected TECHNIQUE: Single AP portable view of the chest. COMPARISON: 05/27/2021 FINDINGS: The lungs are clear and expanded. There is no demonstrated pleural abnormality. Normal size heart. Normal mediastinum and juana. Normal visualized pulmonary arteries. Normal visualized aortic arch and descending thoracic aorta. Normal visualized thoracic spine. Normal visualized ribs, clavicles, and shoulders. There is no demonstrated abnormality of the visualized soft tissue structures of the upper abdomen. RAD/Chest 1 View IMPRESSION: Normal x-ray examination of the chest. Electronically Signed: Eric Ayala MD at 13:06 EDT ,
[2022-05-07] MEDS: Potassium Chloride Oral Tablet 20 MEQ 40 MEQ PO ×2 (13:15→17:08)
--- NOTE | 2022-05-07 13:25 | PCM.HP.STD ---
[facility] - [facility] Date of Service: 05/07/22 Chief Complaint: right sided numbness [facility] Narrative LYN HUFF, is a 67 F who presents with right-sided numbness and slurred speech. Symptoms began around 730 today. Last for about half hour and have resolved. Patient had a TIA about a year ago but affected her left side at that time. Patient had a head and neck CTA that was unremarkable. Patient was seen by [facility] teleneurology who recommended further stroke work-up inpatient versus outpatient. [facility] Medical History (Updated 05/07/22 @ 13:[address] Jose Soler, DO) Ambulates with cane Anxiety Arthritis Asthma Carotid artery stenosis Diabetes type 2, controlled Essential hypertension GERD (gastroesophageal reflux disease) Glaucoma History of edema History of gallstones History of hiatal hernia History of IBS History of pain when walking History of pneumonia History of UTI Hormone deficiency IBS (irritable bowel syndrome) Irritant contact dermatitis due to plant Leg cramps Migraine headache Non-smoker DAVID on CPAP Poison jose elias Polycystic ovaries Post-menopausal Pulmonary embolism Pulmonary embolism Shingles Shortness of breath on exertion Sleep apnea Ulcer Vaginal bleeding Wears glasses Home Medications fluticasone furoate 200 mcg-vilanterol 25 mcg/dose inhalation powder (Breo Ellipta) 1 inh inhalation DAILY 05/02/21 [History Last Taken 05/26/21] lisinopril 20 mg-hydrochlorothiazide 12.5 mg tablet 1 tab PO DAILY 05/02/21 [History Last Taken 05/26/21] montelukast 10 mg tablet 10 mg PO DAILY 05/02/21 [History Last Taken 05/26/21] metformin 500 mg tablet,extended release 24 hr 1,000 mg PO BID 03/30/22 [History Last Taken Unknown] fenofibrate 54 mg tablet See Rx Instructions .Route .COMPLEX #90 tabs 04/13/22 [Rx Last Taken Unknown] hydroxyzine pamoate 25 mg capsule See Rx Instructions .Route .COMPLEX #270 caps 04/13/22 [Rx Last Taken Unknown] albuterol sulfate 90 mcg/actuation aerosol inhaler 2 puff inhalation Q4H PRN Cough 04/22/22 [History Last Taken Unknown] aspirin 81 mg tablet,delayed release 162 mg PO BREAKFAST 04/22/22 [History Last Taken Unknown] vitamin K2 40 mcg tablet 40 mcg PO DAILY 04/22/22 [History Last Taken Unknown] potassium citrate 99 mg capsule mg PO 04/27/22 [History Last Taken Unknown] Allergy/AdvReac Type Severity Reaction Status Date / Time bee venom protein (honey bee) Allergy Unknown unknown Verified 04/27/22 13:35 citalopram AdvReac Severe 'electric Verified 04/27/22 13:35 shocks' Inhaled Anesthetics (Halogen AdvReac Mild Nausea Verified 04/27/22 13:35 Based) poison jose elias Allergy Unknown unknown Uncoded 04/27/22 13:35 Family History Mother Myocardial infarction CVA (cerebral vascular accident) Hypertension Heart disease Father Myocardial infarction Skin cancer Asthma Respiratory disease Cancer prostate Brother Asthma Myocardial infarction Respiratory disease Heart disease Sister Autoimmune disorder Lupus Skin cancer Cancer lung Sister Autoimmune disorder Surgical History H/O exploratory laparotomy History of D&C History of repair of rotator cuff Hx of cholecystectomy Social History Smoking Status: Never smoker Electronic Cigarette Use: not used second hand exposure: No alcohol intake: never substance use type: does not use caffeine: No ROS ROS Narrative Patient currently has a mild headache but her symptoms were not preceded by headache. No vision changes. All review of systems were negative except as mentioned above in the history of present illness and the other review of systems. Vital Signs Vital Signs Vital Signs: 05/07/22 11:28 05/07/22 11:46 05/07/22 11:54 Temperature 37.0 C 37.0 C Temperature Source Temporal Temporal Pulse Rate 89 89 Respiratory Rate 10 L 18 Blood Pressure 146/62 H 139/75 H Blood Pressure Mean 90 96 Pulse Ox 96 96 96 Oxygen Delivery Method Room Air Room Air Room Air 05/07/22 11:55 05/07/22 12:11 05/07/22 12:28 Temperature 37.0 C 36.6 C Temperature Source Temporal Temporal Pulse Rate 87 84 77 Respiratory Rate 27 H 22 H 18 Blood Pressure 139/75 H 134/67 H 144/60 H Blood Pressure Mean 96 89 88 Pulse Ox 97 95 96 Oxygen Delivery Method Room Air Room Air Room Air 05/07/22 12:30 05/07/22 13:00 Temperature 36.6 C 36.2 C L Temperature Source Temporal Temporal Pulse Rate 78 80 Respiratory Rate 21 H 20 H Blood Pressure 144/60 H 132/64 H Blood Pressure Mean 88 86 Pulse Ox 96 96 Oxygen Delivery Method Room Air Room Air Weight Weight: 112.6 kg Body Mass Index (BMI) 45.3 Physical Exam Const alert and no apparent distress General Appearance: cooperative HEENT normocephalic and head/scalp atraumatic Mouth: oral and palatal mucosa normal Eyes EOMs intact bilaterally Eyes Narrative: No icterus Neck no lymphadenopathy and no carotid bruits Resp normal respiratory effort, no retractions, no use of accessory muscles and clear to auscultation bilaterally Cardio regular rate, regular rhythm, S1 normal heart sound and S2 normal heart sound GI normal to inspection, nondistended, normoactive bowel sounds, soft to palpation, non-tender and non-distended Extremity normal to inspection Extremity Narrative: No edema Skin Skin Narrative: Numerous Unroofed lesions on her anterior shins. Neuro oriented x3, CN's II-XII intact bilaterally and moves all extremities Neuro Narrative: Muscle strength 5-5 in the upper extremity and lower extremities bilaterally. Patient had slight ataxia of the right upper and right lower extremity with [id number] and [id number], respectively. Sensorium / Orientation: awake and alert Psych affect normal Results Lab / Micro Data Attestation: I reviewed the patient's lab results. Result Diagrams: 05/07/22 11:13 05/07/22 11:13 Labs: Laboratory Results - last 24 hr 05/07/22 11:13: WBC 9.0, RBC 5.01, Hgb 15.8 H, Hct 44.9, MCV 89.6, MCH 31.5, MCHC 35.2, RDW Std Deviation 44.6 H, RDW Coeff of Chong 13.7, Plt Count 339, MPV 10.1, Immature Gran % (Auto) 0.400, Neut % (Auto) 56.0, Lymph % (Auto) 30.3, [place] % (Auto) 11.0 H, Eos % (Auto) 1.7, Baso % (Auto) 0.6, Absolute Neuts (auto) 5.0, Absolute Lymphs (auto) 2.73, Nucleated RBC % 0 05/07/22 11:13: PT 12.0, INR 0.9, APTT 25.3 05/07/22 11:13: Sodium 139, Potassium 3.4 L, Chloride 106, Carbon Dioxide 24.0, Anion Gap 9, BUN 22 H, Creatinine 0.87, Estim Creat Clear Calc 50.99, Est GFR (MDRD) Af Amer 84, Est GFR (MDRD) Non-Af 70, BUN/Creatinine Ratio 25.3 H, Glucose 145 H, Calcium 9.5, Troponin I High Sens 8 EKG Initial EKG: Attestation: I personally reviewed and interpreted this EKG as follows: Prior EKG tracings: available for review EKG Rhythm Intrepretation: Sinus Rhythm Radiology Impression Head/Neck CTA 05/07/22 11:41 IMPRESSION: Normal CTA Head and neck with contrast. N.B. : The above Results were Read Back by Eric Ayala MD to Leticia Santillan and understanding confirmed on 05/07/2022 12:48:43 (ET). Electronically Signed: Eric Ayala MD at 12:49 EDT Reading Location ID and State: [employer] / [facility] , Service support , ADDENDUM: 05/07/22 1256 IMPRESSION: Normal CTA Head and neck with contrast. N.B. : The above Results were Read Back by Eric Ayala MD to Leticia Santillan and understanding confirmed on 05/07/2022 12:48:43 (ET). Electronically Signed: Eric Ayala MD at 12:49 EDT Reading Location ID and State: [employer] / [facility] , Service support , Chest X-Ray 05/07/22 12:16 IMPRESSION: Normal x-ray examination of the chest. Electronically Signed: Eric Ayala MD at 13:06 EDT Reading Location ID and State: [email or web address] / [facility] , Service support , Assessment & Plan Assessment/Plan (1) CVA (cerebral vascular accident): PLAN: Patient still has symptoms though they are improved from previous. Ongoing symptoms with right-sided ataxia. Plan: MRI of the brain 2D echocardiogram Fasting lipid panel Continue aspirin Add clopidogrel Documented intolerance to statins. After the rest of the work-up has been completed then would consult [facility] teleneurology PT OT evaluate and treat (2) Hypokalemia: PLAN: Replace Check magnesium (3) Antithrombin III deficiency: PLAN: Has seen Dr. Lovelace He recommended no further evaluation and observing. (4) Ventricular tachycardia (paroxysmal): PLAN: Recently saw Dr. Kumar And plan was just to maintain normal potassium magnesium levels. Patient's thyroid was checked and was within normal limits. This was apparently found when patient had a manager cardiac after her stroke to evaluate for atrial fibrillation. Patient was not informed that she had atrial fibrillation nor is or any documentation that that was present. (5) Diabetes type 2, controlled: PLAN: Hold metformin given the contrast load that she just received with a CTA Sliding scale insulin Check A1c PLAN: Plan Chronic conditions hypertension: Given the acute stroke, will hold off on her lisinopril/HCTZ for now. Hyperlipidemia: Noted intolerance to statins. Continue the fenofibrate. VTE prophylaxis: Moderate risk. Enoxaparin. Disposition: To be determined. Patient advised that she will be here until the of waiting for the remainder of her work-up to be completed. Charges/Coding Visit Charges Inpatient E&M: 29748 Init Hosp L3
--- NOTE | 2022-05-07 13:35 | NURSING ---
PCU OBS JOPPERI STROKE LIKE SYMPTOMS
[2022-05-07 13:50] LABS: Troponin-I HS 17 pg/mL (3.0-54.0)
--- NOTE | 2022-05-07 14:22 | ECHOD_ITS ---
Reason For Study: TIA/CVA Procedure This was a 2D Doppler, Color Flow transthoracic echocardiogram. The exam was of adequate technical quality. Exam performed portable in patient room. Left Ventricle Normal LV size. Left ventricular systolic function is normal. The estimated ejection fraction is 65 %. No evidence for diastolic dysfunction. No regional wall motion abnormalities noted. Right Ventricle Normal RV size. The right ventricular wall motion is normal. Atria Normal left atrium. Normal right atrium. No doppler evidence for ASD. Mitral Valve There is no mitral annular calcification. Normal mitral valve. Trivial mitral valve insufficiency. Tricuspid Valve Normal tricuspid valve. Trivial tricuspid valve insufficiency. Right ventricular systolic pressure estimated to be 29 mmHg. Aortic Valve Trisinus/trileaflet aortic valve. Mild focal aortic valve calcification. Pulmonic Valve The pulmonic valve is not well visualized. Trivial pulmonic valve insufficiency. Great Vessels Normal sized aortic root. Pericardium/Pleural No pericardial effusion. MMode/2D Measurements & Calculations LVIDd: 4.8 cm IVSd: 1.0 cm Ao root diam: 3.6 cm LVIDs: 3.3 cm LVPWd: 0.77 cm LA dimension: 3.7 cm RVDd: 3.8 cm FS: 31.2 % LAV(MOD-bp): 36.3 ml LA A4 area: 15.5 cm2 RA A4 area: 11.4 cm2 LAV(MOD-bp) Indexed: 17.5 ml/m2 LAV(MOD-sp2): 32.5 ml LAV(MOD-sp4): 40.3 ml Time Measurements MV dec time: 0.24 sec Doppler Measurements & Calculations MV E max obed: 98.0 cm/sec Lat Peak E' Obed: 10.3 cm/sec Med Peak E' Obed: 6.9 cm/sec MV A max obed: 110.3 cm/sec E/E' lat: 9.5 E/E' med: 14.1 MV E/A: 0.89 MV V2 max: 125.5 cm/sec MV P1/2t max obed: 105.1 cm/sec Ao V2 max: 146.0 cm/sec MV max P.3 mmHg MV P1/2t: 75.9 msec Ao max P.5 mmHg MV V2 mean: 70.1 cm/sec MV dec slope: 405.4 cm/sec2 Ao V2 mean: 98.1 cm/sec MV mean P.3 mmHg MVA(P1/2t): 2.9 cm2 Ao mean P.5 mmHg MV V2 VTI: 41.2 cm Ao V2 VTI: 31.2 cm LV V1 max: 126.8 cm/sec PA V2 max: 105.3 cm/sec TR max obed: 253.0 cm/sec LV V1 max P.4 mmHg TR max P.7 mmHg LV V1 mean P.7 mmHg LV V1 mean: 91.0 cm/sec LV V1 VTI: 25.7 cm ECHO/Echo Complete Interpretation Summary Left ventricular systolic function is normal. The estimated ejection fraction is 65 %. Trivial mitral valve insufficiency. Trivial tricuspid valve insufficiency. Mild focal aortic valve calcification. Trivial pulmonic valve insufficiency. Right ventricular systolic pressure estimated to be 29 mmHg. No evidence for diastolic dysfunction. Comment: Transthoracic echocardiogram from 02-21-2017 and 05-28-2021: Negative natalie tated saline contrast study for right to left interatrial shunt. Ordering Physician: Jose Soler Referring Physician: Tracy Louie M.D. Performed By: Nguyễn Guillen RCS
[2022-05-07] MEDS: Glycerin/Hypromellose/PEG400 15 ml Bottle 1 DRP EACH EYE (20:43)
[2022-05-07 21:20] LABS: Bedside Glucose 126 mg/dL (74-106)
[2022-05-07 21:45] LABS: Bedside Glucose 133 mg/dL (74-106)
[2022-05-08] VITALS (12 sets, daily range): BP systolic 106–131; BP diastolic 58–75; PULSE 60–81; RESP 12–18; TEMP 36.5–37.1; O2SAT 96–99; BMI 44.6
[2022-05-08 07:14] LABS: Anion Gap 6 (5-15); BUN 13 mg/dL (7-18); BUN/Creat Ratio 18.6 RATIO (10-20); Calcium,Total 8.6 mg/dL (8.5-10.1); Chloride 107 mmol/L (98-107); Cholesterol 197 mg/dL (200); EST Glomerular Filtration Rate 89 mL/min (>60); Est Glom Filt Rate - Afr Amer 108 mL/min (>60); Estimated Creatinine Clearance 63.37 ml/min; Glucose 108 mg/dL (74-106); High Density Lipoprotein 40 mg/dL; Sodium Level 140 mmol/L (136-145); Triglycerides 199 mg/dL; Very Low Density Lipoprotein 40 mg/dL (5-40)
[2022-05-08 07:15] LABS: Bedside Glucose 113 mg/dL (74-106)
[2022-05-08 07:25] LABS: Hemoglobin A1c 6.3 % (3.8-5.6)
--- NOTE | 2022-05-08 08:09 | PN.HOSP_ITS ---
Subjective Subjective Feels better overall. Was noted to be unsteady on her feet earlier today. Objective Data Objective Data Vital Signs: Vital Signs Temp Pulse Resp BP Pulse Ox O2 Del Method 36.5 C L 65 16 106/74 99 Room Air 05/08/22 04:01 05/08/22 04:01 05/08/22 04:01 05/08/22 04:01 05/08/22 07:42 05/08/22 07:42 Oxygen Delivery Method Room Air Weight: 110.7 kg Body Mass Index (BMI) 44.6 Lab / Micro Data Result Diagrams: 05/07/22 11:13 05/08/22 05:49 Labs: Laboratory Results - last 24 hr 05/07/22 11:13: WBC 9.0, RBC 5.01, Hgb 15.8 H, Hct 44.9, MCV 89.6, MCH 31.5, MCHC 35.2, RDW Std Deviation 44.6 H, RDW Coeff of Chong 13.7, Plt Count 339, MPV 10.1, Immature Gran % (Auto) 0.400, Neut % (Auto) 56.0, Lymph % (Auto) 30.3, Saunders % (Auto) 11.0 H, Eos % (Auto) 1.7, Baso % (Auto) 0.6, Absolute Neuts (auto) 5.0, Absolute Lymphs (auto) 2.73, Nucleated RBC % 0 05/07/22 11:13: PT 12.0, INR 0.9, APTT 25.3 05/07/22 11:13: Sodium 139, Potassium 3.4 L, Chloride 106, Carbon Dioxide 24.0, Anion Gap 9, BUN 22 H, Creatinine 0.87, Estim Creat Clear Calc 50.99, Est GFR (MDRD) Af Amer 84, Est GFR (MDRD) Non-Af 70, BUN/Creatinine Ratio 25.3 H, Glucose 145 H, Calcium 9.5, Troponin I High Sens 8 05/07/22 13:30: Troponin I High Sens 17 05/07/22 17:07: POC Glucose 133 H 05/07/22 20:53: POC Glucose 126 H 05/08/22 05:49: Sodium 140, Potassium 4.0, Chloride 107, Carbon Dioxide 27.0, Anion Gap 6, BUN 13, Creatinine 0.70, Estim Creat Clear Calc 63.37, Est GFR (MDRD) Af Amer 108, Est GFR (MDRD) Non-Af 89, BUN/Creatinine Ratio 18.6, Glucose 108 H, Calcium 8.6, Magnesium 2.0, Triglycerides 199, Cholesterol 197, LDL Cholesterol 117, VLDL Cholesterol 40, HDL Cholesterol 40 05/08/22 05:49: Hemoglobin A1c 6.3 H 05/08/22 06:43: POC Glucose 113 H Radiography Diagnostic Testing: Radiology Impression Head/Neck CTA 05/07/22 11:41 IMPRESSION: Normal CTA Head and neck with contrast. N.B. : The above Results were Read Back by Eric Ayala MD to Leticia Santillan and understanding confirmed on 05/07/2022 12:48:43 (ET). Electronically Signed: Eric Ayala MD at 12:49 EDT Reading Location ID and State: [email or web address] / [employer] Tel , Service support , ADDENDUM: 05/07/22 1256 IMPRESSION: Normal CTA Head and neck with contrast. N.B. : The above Results were Read Back by Eric Ayala MD to Leticia Santillan and understanding confirmed on 05/07/2022 12:48:43 (ET). Electronically Signed: Eric Ayala MD at 12:49 EDT Reading Location ID and State: [employer] Tel , Service support , Chest X-Ray 05/07/22 12:16 IMPRESSION: Normal x-ray examination of the chest. Electronically Signed: Eric Ayala MD at 13:06 EDT Reading Location ID and State: [email or web address] / [employer] Tel , Service support , Physical Exam Const alert and no apparent distress HEENT head/scalp atraumatic Neuro moves all extremities and no focal motor deficits Coordination / Balance: [id number] test normal and hokg-tj-jaau test normal Psych affect normal Assessment & Plan Assessment/Plan (1) CVA (cerebral vascular accident): QUALIFIERS: CVA mechanism: unspecified Qualified Code(s): I63.9 - Cerebral infarction, unspecified PLAN: Overall her right-sided symptoms are almost resolved. Plan: * MRI of the brain * 2D echocardiogram * Fasting lipid panel * Continue aspirin * Add clopidogrel * Documented intolerance to statins. * After the rest of the work-up has been completed then would consult [facility] teleneurology * PT OT evaluate and treat (2) Hypokalemia: PLAN: Improved after replacement Magnesium WNL (3) Antithrombin III deficiency: PLAN: Has seen Dr. Lovelace He recommended no further evaluation and observing at last visit (4) Ventricular tachycardia (paroxysmal): PLAN: Recently saw Dr. Kumar And plan was just to maintain normal potassium magnesium levels. Patient's thyroid was checked and was within normal limits. This was apparently found when patient had a quality assurance monitor body after her stroke to evaluate for atrial fibrillation. Patient was not informed that she had atrial fibrillation nor is or any documentation that that was present. (5) Diabetes type 2, controlled: PLAN: Hold metformin given the contrast load that she just received with a CTA Sliding scale insulin A1c 6.3 PLAN: Plan Chronic conditions * hypertension: Given the acute stroke, will hold off on her lisinopril/HCTZ for now. * Hyperlipidemia: Noted intolerance to statins. Continue the fenofibrate. VTE prophylaxis: Moderate risk. Enoxaparin. Disposition: To be determined. Patient advised that she will be here until the of waiting for the remainder of her work-up to be completed. Charges/Coding Visit Charges Inpatient E&M: 14793 Subs Hosp L2
[2022-05-08] MEDS: Montelukast 10 MG Tablet PO (08:40)
[2022-05-08] MEDS: Clopidogrel Bisulfate 75 MG Tablet PO (08:40)
[2022-05-08] MEDS: Aspirin E.C. 81 MG Tablet 162 MG PO (08:41)
[2022-05-08] MEDS: Enoxaparin 40 MG/0.4 ML Syringe SC (08:41)
[2022-05-08] MEDS: Fenofibrate 48 MG Tablet PO (08:41)
--- NOTE | 2022-05-08 09:16 | MRI_ITS ---
STUDY: MRI BRAIN WITHOUT CONTRAST REASON FOR EXAM: Female, 67 years old. right sided weakness TECHNIQUE: Standardized multiplanar fat and water weighted pulse sequences were obtained. COMPARISON: 05/27/2021, CT 05/07/2022 FINDINGS: There is mild cerebral atrophy with widening of the extra-axial spaces and ventricular dilatation. There are a limited number of small white matter hyperintensities, distributed throughout the deep white matter tracts of the cerebral hemispheres, consistent with mild chronic white matter ischemic changes. Oval area of the hyperintensity within the superior aspect of the right hemisphere and cerebellum demonstrates restricted diffusion consistent with an acute/subacute right superior cerebellar artery infarct. Normal bilateral basal ganglia. Normal thalami. There is no extra-axial fluid accumulation. Normal flow voids within the major intracranial circulation suggesting patency by spin echo criteria. Normal sella turcica, pituitary gland, infundibular stalk, optic chiasm and hypothalamus. Normal tectal plate and pineal gland. Normal midbrain, iglesia and medulla. Normal cerebellum. Normal basal cisterns. Normal bilateral temporal bones. Normal bilateral internal auditory canals. No demonstrated orbital abnormality, within the constraints of a routine brain study. Normal visualized paranasal sinuses. Normal calvarium and skull base. Normal visualized soft tissue structures. Normal visualized upper cervical spine. MRI/Brain without Contrast IMPRESSION: Involutional changes of the brain, as described above. Acute/subacute right superior cerebellar artery infarct. N.B. : The above Results were Read Back by Eric Ayala MD to cognos bi developerDONATO Newman, and understanding confirmed on 05/08/2022 13:12:59 (ET). Electronically Signed: Eric Ayala MD at 12:31 EDT ,
[2022-05-08 12:31] LABS: Bedside Glucose 116 mg/dL (74-106)
--- NOTE | 2022-05-08 13:09 | TELEMED_ITS ---
[facility] has confirmed receipt of a request for visit. This document confirms receipt of the order initiating the consult. To find the results of the consultation, please view the patient's reports for the scanned Telemed Consult.
[2022-05-08 18:20] LABS: Bedside Glucose 160 mg/dL (74-106)
[2022-05-08 22:25] LABS: Bedside Glucose 158 mg/dL (74-106)
[2022-05-09] VITALS (10 sets, daily range): BP systolic 102–139; BP diastolic 55–88; PULSE 59–72; RESP 16–17; TEMP 36.5–36.7; O2SAT 95–97; BMI 44.6
[2022-05-09 07:11] LABS: Bedside Glucose 118 mg/dL (74-106)
--- NOTE | 2022-05-09 07:52 | PCM.DC.SUM ---
Providers Date of Admission: 05/07/22 Primary Care Physician: Dr. 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 (4) Ventricular tachycardia (paroxysmal): Status: Acute Code(s): I47.2 - Ventricular tachycardia (5) Diabetes type 2, controlled: Status: Acute Code(s): E11.9 - Type 2 diabetes mellitus without complications Medications at Discharge Home Medications fluticasone furoate 200 mcg-vilanterol 25 mcg/dose inhalation powder (Breo Ellipta) 1 inh inhalation DAILY 05/02/21 lisinopril 20 mg-hydrochlorothiazide 12.5 mg tablet 1 tab PO DAILY 05/02/21 montelukast 10 mg tablet 10 mg PO DAILY 05/02/21 metformin 500 mg tablet,extended release 24 hr 1,000 mg PO BID 03/30/22 fenofibrate 54 mg tablet See Rx Instructions .Route .COMPLEX #90 tabs 04/13/22 hydroxyzine pamoate 25 mg capsule See Rx Instructions .Route .COMPLEX #270 caps 04/13/22 albuterol sulfate 90 mcg/actuation aerosol inhaler 2 puff inhalation Q4H PRN Cough 04/22/22 aspirin 81 mg tablet,delayed release 162 mg PO BREAKFAST 04/22/22 vitamin K2 40 mcg tablet 40 mcg PO DAILY 04/22/22 potassium citrate 99 mg capsule mg PO 04/27/22 Weight / BMI Weight Weight: 244 lb 0.827 oz Body Mass Index (BMI) 44.6 ABG / Lab / Microbiology Data Result Diagrams: 05/07/22 11:13 05/08/22 05:49 Laboratory: Laboratory Results - last 24 hr 05/08/22 11:41: POC Glucose 116 H 05/08/22 17:41: POC Glucose 160 H 05/08/22 20:39: POC Glucose 158 H 05/09/22 06:49: POC Glucose 118 H Radiography Diagnostic Testing: Radiology Impression Head/Neck CTA 05/07/22 11:41 IMPRESSION: Normal CTA Head and neck with contrast. N.B. : The above Results were Read Back by Eric Ayala MD to Leticia Santillan and understanding confirmed on 05/07/2022 12:48:43 (ET). Electronically Signed: Eric Ayala MD at 12:49 EDT , Brain MRI 05/08/22 09:16 IMPRESSION: Involutional changes of the brain, as described above. Acute/subacute right superior cerebellar artery infarct. N.B. : The above Results were Read Back by Eric Ayala MD to client experience administratorDONATO Newman, and understanding confirmed on 05/08/2022 13:12:59 (ET). Electronically Signed: Eric Ayala MD at 12:31 EDT , Discharge Plan Admission Admit Date/Time: 05/07/22 13:18 Attending Provider: Goldy Holder Primary Care Provider: Tracy Louie Consulting Providers: Jose Soler Discharge Orders/Prescriptions Prescriptions: No Action metformin 500 mg tablet extended release 24 hr 1,000 mg PO BID Label Comments: DIABETES aspirin 81 mg tablet,delayed release (DR/EC) 162 mg PO BREAKFAST vitamin K2 40 mcg tablet 40 mcg PO DAILY potassium citrate 99 mg capsule PO lisinopril-hydrochlorothiazide 20-12.5 mg tablet 1 tab PO DAILY montelukast 10 mg tablet 10 mg PO DAILY fluticasone furoate-vilanterol [Breo Ellipta] 200-25 mcg/dose blister with device 1 inh INHALATION DAILY Label Comments: INHALE 1 PUFF ONCE A DAY WITH GOOD ORAL CARE albuterol sulfate 90 mcg/actuation HFA aerosol inhaler 2 puff INHALATION Q4H PRN (Reason: Cough) Label Comments: 2 (TWO) AEROSOL SOLN EVERY 4 HOURS NEEDED hydroxyzine pamoate 25 mg capsule See Rx Instructions .ROUTE .COMPLEX Qty: 270 1RF Dose Instruction: TAKE 1 CAPSULE BY MOUTH 3 TIMES A DAY NEEDED FOR DIZZINESS Rx Instructions: TAKE 1 CAPSULE BY MOUTH 3 TIMES A DAY NEEDED FOR DIZZINESS fenofibrate 54 mg tablet See Rx Instructions .ROUTE .COMPLEX Qty: 90 1RF Dose Instruction: TAKE 1 TABLET BY MOUTH DAILY Rx Instructions: TAKE 1 TABLET BY MOUTH DAILY Referrals / Follow Up: Tracy Louie DO [Primary Care Provider] -
[2022-05-09] MEDS: Aspirin E.C. 81 MG Tablet 162 MG PO (09:22)
[2022-05-09] MEDS: Montelukast 10 MG Tablet PO (09:22)
[2022-05-09] MEDS: Fenofibrate 145 MG Tablet PO (09:22)
[2022-05-09] MEDS: Enoxaparin 40 MG/0.4 ML Syringe SC (09:23)
[2022-05-09] MEDS: Clopidogrel Bisulfate 75 MG Tablet PO (09:23)
--- NOTE | 2022-05-09 10:01 | CASEMGMT ---
SW completed a PHQ 9 as patient may have had a Stroke or TIA. Patient scored a 1 which indicates minimal depression. Patient denies any need for counseling resources. Shaina LOVE
--- NOTE | 2022-05-09 10:50 | CASEMGMT ---
ALEX LINDA assessment: Face to Face with patient for initial transition planning/care coordination assessment. ALEX LINDA introduced self and role at [facility], pt voices understanding and consents to assessment. Pt is sitting up in bed in no distress on room air. Pt is A/Ox4 and answers all questions appropriately.? Care providers, pharmacy,?and demographics verified. ? Presentation: R leg numbness, slurred speech at 1030-neg c[place] per EMS Admitting dx: CVA PCP: Jacy Specialists: Leatha, neuro-hx CVA in past; Radu, heme; José, cardio; Sibilia, pulm Preferred [facility]acy: [facility] Insurance: [employer]/MCR A Prescription Benefit:? [employer] Living Will/HPOA: Pt has LW/HPOA and is aware that they are not on file at [facility]. Pt states her ex-, Manuel Clifton, is her HPOA. LNOK: Manuel Clifton, ex-/HPOA; Starr Walsh, sister Living Arrangements: Pt states normally lives alone in 1 story home but states plans to go stay with ex- on main level of his 2 story home and states no concerns at home. Pt is normally independent with ADL'. Transportation: Pt drives self and states no transportation concerns. DME/HHC: Pt states has access to WW's and canes and also has a cpap at home that she attempts to use most of time. Pt states no hx of HHC or SNF in the past but has had OP therapy in the past and is interested in OP therapy at d/c at [facility]. Order obtained for [facility] and faxed. Pt given original. Pt states no concerns with going home at time of discharge. 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 Pt does not smoke cigarettes or drink ETOH. Pt states no further concerns/needs. CM to follow for any further discharge planning/needs. Advised pt to ask for CM if any further questions/concerns/needs arise, voices understanding. Pt Goal: Home Plan: Home w/ OP therapy. [place] ALEX LINDA
[2022-05-09] MEDS: Insulin Lispro 100 UNIT/ML INSULN.PEN SC (11:29)
[2022-05-09 11:55] LABS: Bedside Glucose 173 mg/dL (74-106)
--- NOTE | 2022-05-09 15:13 | DCINST_ITS ---
Discharge Instructions Diet Discharge Diet: Low fat / Low cholesterol and 1800 Calorie Control Diet Activity Discharge Activity: Return to Normal Activity Dressing / Incision Call your doctor if you observe: Numbness or Tingling and Dizziness Follow Up Care Test Results: Test results from this visit will be discussed in further detail at your follow- up appointment, if applicable. Discharge Plan Admission Admit Date/Time: 05/07/22 13:18 Primary Reason for Your Visit: CVA Attending Provider: Goldy Holder Primary Care Provider: Tracy Louie Consulting Providers: Jose Soler Discharge Orders/Prescriptions Prescriptions: New clopidogrel 75 mg Tablet 75 mg PO DAILY 30 Days Qty: 30 0RF fenofibrate nanocrystallized 145 mg Tablet 145 mg PO DAILY 30 Days Qty: 30 0RF Continued aspirin 81 mg tablet,delayed release (DR/EC) 162 mg PO BREAKFAST vitamin K2 40 mcg tablet 40 mcg PO DAILY potassium citrate 99 mg capsule PO lisinopril-hydrochlorothiazide 20-12.5 mg tablet 1 tab PO DAILY montelukast 10 mg tablet 10 mg PO DAILY fluticasone furoate-vilanterol [Breo Ellipta] 200-25 mcg/dose blister with device 1 inh INHALATION DAILY Label Comments: INHALE 1 PUFF ONCE A DAY WITH GOOD ORAL CARE albuterol sulfate 90 mcg/actuation HFA aerosol inhaler 2 puff INHALATION Q4H PRN (Reason: Cough) Label Comments: 2 (TWO) AEROSOL SOLN EVERY 4 HOURS NEEDED hydroxyzine pamoate 25 mg capsule See Rx Instructions .ROUTE .COMPLEX Qty: 270 1RF Dose Instruction: TAKE 1 CAPSULE BY MOUTH 3 TIMES A DAY NEEDED FOR DIZZINESS Rx Instructions: TAKE 1 CAPSULE BY MOUTH 3 TIMES A DAY NEEDED FOR DIZZINESS Held metformin 500 mg tablet extended release 24 hr 1,000 mg PO BID Hold Instructions: Resume on 05/11/22. Label Comments: DIABETES Discontinued fenofibrate 54 mg tablet See Rx Instructions .ROUTE .COMPLEX Qty: 90 1RF Dose Instruction: TAKE 1 TABLET BY MOUTH DAILY Rx Instructions: TAKE 1 TABLET BY MOUTH DAILY Other Ambulatory Orders: 30 Day Event Recorder Preventi (Urgent) Location: None Selected Ordered By: Keshia Alexander Referrals / Follow Up: Tracy Louie DO [Primary Care Provider] - Within 2 Weeks Disposition Disposition (needs filled in before D/C Order can be placed): Home, Self Care
--- NOTE | 2022-05-09 15:17 | DS.PCM_ITS ---
Documented by User: ESTEFANIA Bowser 05/09/22 15:23 Providers Date of Admission: 05/07/22 Date of Discharge: 05/09/22 Primary Care Physician: Dr. 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 (4) Ventricular tachycardia (paroxysmal): Status: Acute Code(s): I47.2 - Ventricular tachycardia (5) Diabetes type 2, controlled: Status: Acute Code(s): E11.9 - Type 2 diabetes mellitus without complications Medications at Discharge Home Medications fluticasone furoate 200 mcg-vilanterol 25 mcg/dose inhalation powder (Breo El lipta) 1 inh inhalation DAILY 05/02/21 montelukast 10 mg tablet 10 mg PO DAILY 05/02/21 metformin 500 mg tablet,extended release 24 hr 1,000 mg PO BID 03/30/22 hydroxyzine pamoate 25 mg capsule See Rx Instructions .Route .COMPLEX #270 caps 04/13/22 albuterol sulfate 90 mcg/actuation aerosol inhaler 2 puff inhalation Q4H PRN Cough 04/22/22 aspirin 81 mg tablet,delayed release 162 mg PO BREAKFAST 04/22/22 vitamin K2 40 mcg tablet 40 mcg PO DAILY 04/22/22 potassium citrate 99 mg capsule mg PO 04/27/22 clopidogrel 75 mg tablet 75 mg PO DAILY 30 days #30 tabs 05/09/22 fenofibrate nanocrystallized 145 mg tablet 145 mg PO DAILY 30 days #30 tabs 05/09/22 lisinopril 20 mg-hydrochlorothiazide 12.5 mg tablet 0.5 tab PO DAILY #30 tabs 05/09/22 Hospital Course Operations None Procedures 2-D Echocardiogram Summary of Care Provided Minutes Spent on Discharge: 35 Hospital Course: Patient is a 67-year-old female who originally presented with right-sided numbness and slurred speech. Patient underwent echocardiogram which demon strated an EF 65%. Head and neck CTA were negative for acute findings. Brain MRI demonstrates acute/subacute right superior cerebral artery infarct. Patient will be discharged home with Plavix, increased fenofibrate and orders for a 30- day event monitor. Patient directed to follow-up with primary care physician in a couple of weeks for posthospital follow-up. Physical Exam Const alert, oriented x3 and no apparent distress General Appearance: cooperative HEENT normocephalic and head/scalp atraumatic Eyes conjunctivae normal and no scleral icterus Neck no lymphadenopathy and supple General: trachea midline Lymph Lymphatic: no lymphadenopathy noted Resp normal respiratory effort, normal air movement and clear to auscultation bila terally Cardio regular rate, regular rhythm, S1 normal heart sound, S2 normal heart sound and peripheral pulses 2+ throughout GI normal to inspection, nondistended, normoactive bowel sounds, soft to palpation and non-tender Extremity normal capillary refill, no clubbing, cyanosis or edema and no calf tenderness Skin skin turgor normal Neuro no focal motor deficits and no sensory deficits noted Psych affect normal Appearance: appropriate Weight / BMI Weight Weight: 244 lb 0.827 oz Body Mass Index (BMI) 44.6 ABG / Lab / Microbiology Data Result Diagrams: 05/07/22 11:13 05/08/22 05:49 Laboratory: Laboratory Results - last 24 hr 05/08/22 17:41: POC Glucose 160 H 05/08/22 20:39: POC Glucose 158 H 05/09/22 06:49: POC Glucose 118 H 05/09/22 11:15: POC Glucose 173 H Radiography Diagnostic Testing: Radiology Impression Brain CT 05/07/22 11:41 IMPRESSION: Normal unenhanced CT scan of the brain. N.B. : The above Results were Read Back by Eric Ayala MD to Leticia Santillan and understanding confirmed on 05/07/2022 11:54:43 (ET). Electronically Signed: Eric Ayala MD at 11:55 EDT , Echocardiogram 05/07/22 14:22 Interpretation Summary Left ventricular systolic function is normal. The estimated ejection fraction is 65 %. Trivial mitral valve insufficiency. Trivial tricuspid valve insufficiency. Mild focal aortic valve calcification. Trivial pulmonic valve insufficiency. Right ventricular systolic pressure estimated to be 29 mmHg. No evidence for diastolic dysfunction. Comment: Transthoracic echocardiogram from 02-21-2017 and 05-28-2021: Negative agitated saline contrast study for right to left interatrial shunt. Ordering Physician: Jose Soler Referring Physician: Tracy Louie M.D. Performed By: Nguyễn Guillen RCS Brain MRI 05/08/22 09:16 IMPRESSION: Involutional changes of the brain, as described above. Acute/subacute right superior cerebellar artery infarct. N.B. : The above Results were Read Back by Eric Ayala MD to hospice community liaison DONATO Presley, and understanding confirmed on 05/08/2022 13:12:59 (ET). Electronically Signed: Eric Ayala MD at 12:31 EDT , D/C Instructions Discharge Diet: Low fat / Low cholesterol and 1800 Calorie Control Diet Call your doctor if you observe: Numbness or Tingling and Dizziness Meaningful Use Info Meaningful Use Diagnoses (Choose all that apply): Ischemic CVA CVA Therapy Assessed for PT,OT and/or ST?: Yes Ischemic Stroke Antithrombotic order at d/c?: Yes Dx of Atrial fib/flutter?: No Statins at discharge?: No Reason Statin not ordered: Adverse Reaction to Drug Primary Dx Acute Ischemic CVA?: Yes IV tPA ordered during stay?: No Reason IV t-PA not ordered: Medical Contraindication Discharge Plan Admission Admit Date/Time: 05/07/22 13:18 Primary Reason for Your Visit: CVA Attending Provider: Goldy Holder Primary Care Provider: Tracy Louie Consulting Providers: Jose Soler Discharge Orders/Prescriptions Prescriptions: New clopidogrel 75 mg Tablet 75 mg PO DAILY 30 Days Qty: 30 0RF fenofibrate nanocrystallized 145 mg Tablet 145 mg PO DAILY 30 Days Qty: 30 0RF Continued aspirin 81 mg tablet,delayed release (DR/EC) 162 mg PO BREAKFAST vitamin K2 40 mcg tablet 40 mcg PO DAILY potassium citrate 99 mg capsule PO montelukast 10 mg tablet 10 mg PO DAILY fluticasone furoate-vilanterol [Breo Ellipta] 200-25 mcg/dose blister with device 1 inh INHALATION DAILY Label Comments: INHALE 1 PUFF ONCE A DAY WITH GOOD ORAL CARE albuterol sulfate 90 mcg/actuation HFA aerosol inhaler 2 puff INHALATION Q4H PRN (Reason: Cough) Label Comments: 2 (TWO) AEROSOL SOLN EVERY 4 HOURS NEEDED hydroxyzine pamoate 25 mg capsule See Rx Instructions .ROUTE .COMPLEX Qty: 270 1RF Dose Instruction: TAKE 1 CAPSULE BY MOUTH 3 TIMES A DAY NEEDED FOR DIZZINESS Rx Instructions: TAKE 1 CAPSULE BY MOUTH 3 TIMES A DAY NEEDED FOR DIZZINESS Changed lisinopril-hydrochlorothiazide 20-12.5 mg tablet 0.5 tab PO DAILY Qty: 30 0RF Held metformin 500 mg tablet extended release 24 hr 1,000 mg PO BID Hold Instructions: Resume on 05/11/22. Label Comments: DIABETES Discontinued fenofibrate 54 mg tablet See Rx Instructions .ROUTE .COMPLEX Qty: 90 1RF Dose Instruction: TAKE 1 TABLET BY MOUTH DAILY Rx Instructions: TAKE 1 TABLET BY MOUTH DAILY Other Ambulatory Orders: 30 Day Event Recorder Preventi (Urgent) Location: None Selected Ordered By: Keshia Alexander Referrals / Follow Up: Tracy Louie DO [Primary Care Provider] - Within 2 Weeks Disposition Disposition (needs filled in before D/C Order can be placed): Home, Self Care Documented by User: Dr. 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 (4) Ventricular tachycardia (paroxysmal): Status: Acute Code(s): I47.2 - Ventricular tachycardia (5) Diabetes type 2, controlled: Status: Acute Code(s): E11.9 - Type 2 diabetes mellitus without complications Medications at Discharge Home Medications fluticasone furoate 200 mcg-vilanterol 25 mcg/dose inhalation powder (Breo Ellipta) 1 inh inhalation DAILY 05/02/21 montelukast 10 mg tablet 10 mg PO DAILY 05/02/21 metformin 500 mg tablet,extended release 24 hr 1,000 mg PO BID 03/30/22 hydroxyzine pamoate 25 mg capsule See Rx Instructions .Route .COMPLEX #270 caps 04/13/22 albuterol sulfate 90 mcg/actuation aerosol inhaler 2 puff inhalation Q4H PRN Cough 04/22/22 aspirin 81 mg tablet,delayed release 162 mg PO BREAKFAST 04/22/22 vitamin K2 40 mcg tablet 40 mcg PO DAILY 04/22/22 potassium citrate 99 mg capsule mg PO 04/27/22 clopidogrel 75 mg tablet 75 mg PO DAILY 30 days #30 tabs 05/09/22 fenofibrate nanocrystallized 145 mg tablet 145 mg PO DAILY 30 days #30 tabs 05/09/22 lisinopril 20 mg-hydrochlorothiazide 12.5 mg tablet 0.5 tab PO DAILY #30 tabs 05/09/22 Hospital Course Summary of Care Provided Hospital Course: Patient is a 67-year-old female who originally presented with right-sided numbne ss and slurred speech. Patient underwent echocardiogram which demonstrated an EF 65%. Head and neck CTA were negative for acute findings. Brain MRI demonstrates acute/subacute right superior cerebral artery infarct. Patient will be discharged home with Plavix, increased fenofibrate and orders for a 30- day event monitor. Patient directed to follow-up with primary care physician in a couple of weeks for posthospital follow-up. This patient was seen in conjunction with BERYL Schmitt. I have independently interviewed and examined the patient and reviewed pertinent history, examination findings, laboratory and plan of management. I have reviewed the note and agree with the documented findings with the few additional points. In brief, patient is a 67-year-old female with history of TIA in May 2021 was admitted through ED for right-sided numbness, slurred speech and dysarthria. Symptoms started about 7:30 a.m. on day of admission, lasted for about half hour and then resolved. Patient had head and neck CT that was unremarkable. Patient was seen by [facility] teleneurology recommended further stroke work-up. MRI brain shows right acute/subacute superior cerebellar artery infarct. 2D echo reported negative agitated saline contrast study for right to left interatrial shunt. EF 65%. On vehicle monitor technician patient remained sinus rhythm. No history of A. fib or significant cardiac arrhythmia. Patient was recommended dual antiplatelet agent for 21 days and then aspirin to continue. Orthostatic blood pressure episode SBP 102 mmHg standing therefore patient antihypertensive me dication lisinopril?HCT 20-12.5 mg, decreased to half tablet daily and advised to hold for SBP less than 130 mmHg. LDL 117, HDL 40. A1c 6.3%. Serum magnesium normal. Patient was on fenofibrate 54 mg daily which increased to 145 mg daily. Patient has statin intolerance. On medical record review, patient has seen Dr. Richi Zhang in March 2022. Previous MRI in May 2021 did not show ischemic or hemorrhagic finding. Patient also had 30-day event monitor which she will Eliquis of 4 beat, NSVT. I have discussed my assessment with BERYL Schmitt and orders have been reviewed. Discharge medication reconciliation done. Discharge follow-up instructions completed. Discharge process discussed with the patient and all questions were answered to patient's satisfaction. Total time spent, exact 35 minutes on discharge meds reconciliation, examination, coordination of care with nurses and ancillary staff, review of imaging and blood test and discussion with the patient on follow-up instructions. Laboratory Results 05/08/22 17:41: POC Glucose 160 H 05/08/22 20:39: POC Glucose 158 H 05/09/22 06:49: POC Glucose 118 H 05/09/22 11:15: POC Glucose 173 H Clinical Impression(s) from Imaging Studies Brain CT 05/07/22 11:41 IMPRESSION: Normal unenhanced CT scan of the brain. N.B. : The above Results were Read Back by Eric Ayala MD to Leticia Santillan and understanding confirmed on 05/07/2022 11:54:43 (ET). Electronically Signed: Eric Ayala MD at 11:55 EDT Reading Location ID and State: [id number] / [place] [employer] , Service support , Head/Neck CTA 05/07/22 11:41 IMPRESSION: Normal CTA Head and neck with contrast. Chest X-Ray 05/07/22 12:16 IMPRESSION: Normal x-ray examination of the chest. Electronically Signed: Eric Ayala MD at 13:06 EDT Reading Location ID and State: [id number] / [place] [employer] , Service support , Echocardiogram 05/07/22 14:22 Interpretation Summary Left ventricular systolic function is normal. The estimated ejection fraction is 65 %. Trivial mitral valve insufficiency. Trivial tricuspid valve insufficiency. Mild focal aortic valve calcification. Trivial pulmonic valve insufficiency. Right ventricular systolic pressure estimated to be 29 mmHg. No evidence for diastolic dysfunction. Comment: Transthoracic echocardiogram from 02-21-2017 and 05-28-2021: Negative agitated saline contrast study for right to left interatrial shunt. Ordering Physician: Jose Soler Referring Physician: Tracy Louie M.D. Performed By: Nguyễn Guillen RCS Brain MRI 05/08/22 09:16 IMPRESSION: Involutional changes of the brain, as described above. Acute/subacute right superior cerebellar artery infarct. Physical Exam Narrative Seen and examined. Patient had a stroke in the first week of June 05, 2021 with left-sided weakness. At this time she has right-sided weakness with ataxia, disequilibrium and verbalization/motor speech output. She did not her problem in thinking of words. Physical exam General: Alert, Oriented x3, Cooperative HEENT: Atraumatic, PERRLA, EOMI, Normocephalic Oral: No Gingival or Mucosal Lesions/ Ulcerations Neck: Supple, No JVD, Negative Carotid Bruits Lungs: Air entry diminished in bilateral lung bases. No crepitation/rhonchi Cardiovascular: Regular rate, Regular Rhythm, Normal S1, Normal S2, No murmurs Abdomen: Bowel Sounds Present, Soft, Non Tender, Non-Distended : No renal angle tenderness. No suprapubic tenderness. Extremities: No edema, Capillary Refill Less than 3 Seconds Skin: No rashes, No breakdown Musculoskeletal: No Tenderness to Palpation of Joints or Extremities. Muscle strength 5/5 at major joints of lower extremities. Neurological: Cranial nerves II-XII grossly intact, DTR 2+/4, finger-nose test and heel lopez test normal. NIH stroke scale 0. GCS 15. Psych/Mental Status: Normal Affect, Appropriate. ABG / Lab / Microbiology Data Result Diagrams: 05/07/22 11:13 05/08/22 05:49 Discharge Plan Admission Admit Date/Time: 05/07/22 13:18 Primary Reason for Your Visit: CVA Attending Provider: Goldy Holder Primary Care Provider: Tracy Louie Consulting Providers: Joes Soler Discharge Orders/Prescriptions Prescriptions: New clopidogrel 75 mg Tablet 75 mg PO DAILY 30 Days Qty: 30 0RF fenofibrate nanocrystallized 145 mg Tablet 145 mg PO DAILY 30 Days Qty: 30 0RF Continued aspirin 81 mg tablet,delayed release (DR/EC) 162 mg PO BREAKFAST vitamin K2 40 mcg tablet 40 mcg PO DAILY potassium citrate 99 mg capsule PO montelukast 10 mg tablet 10 mg PO DAILY fluticasone furoate-vilanterol [Breo Ellipta] 200-25 mcg/dose blister with device 1 inh INHALATION DAILY Label Comments: INHALE 1 PUFF ONCE A DAY WITH GOOD ORAL CARE albuterol sulfate 90 mcg/actuation HFA aerosol inhaler 2 puff INHALATION Q4H PRN (Reason: Cough) Label Comments: 2 (TWO) AEROSOL SOLN EVERY 4 HOURS NEEDED hydroxyzine pamoate 25 mg capsule See Rx Instructions .ROUTE .COMPLEX Qty: 270 1RF Dose Instruction: TAKE 1 CAPSULE BY MOUTH 3 TIMES A DAY NEEDED FOR DIZZINESS Rx Instructions: TAKE 1 CAPSULE BY MOUTH 3 TIMES A DAY NEEDED FOR DIZZINESS Changed lisinopril-hydrochlorothiazide 20-12.5 mg tablet 0.5 tab PO DAILY Qty: 30 0RF Held metformin 500 mg tablet extended release 24 hr 1,000 mg PO BID Hold Instructions: Resume on 05/11/22. Label Comments: DIABETES Discontinued fenofibrate 54 mg tablet See Rx Instructions .ROUTE .COMPLEX Qty: 90 1RF Dose Instruction: TAKE 1 TABLET BY MOUTH DAILY Rx Instructions: TAKE 1 TABLET BY MOUTH DAILY Other Ambulatory Orders: 30 Day Event Recorder Preventi (Urgent) Location: None Selected Ordered By: Keshia Alexander Referrals / Follow Up: Tracy Louie DO [Primary Care Provider] - Within 2 Weeks Disposition Disposition (needs filled in before D/C Order can be placed): Home, Self Care Charges/Coding Visit Charges Inpatient E&M: 40911 Disch Hosp
--- NOTE | 2022-05-09 15:37 | PHA.DC.MC ---
Pharmacy Service has performed discharge medication reconciliation and counseling for this patient. 1. CLOPIDOGREL 75MG PO DAILY The patient's discharge medication list was reviewed for discrepancies and discrepancies were resolved. Home Medications fluticasone furoate 200 mcg-vilanterol 25 mcg/dose inhalation powder (Breo Ellipta) 1 inh inhalation DAILY 05/02/21 lisinopril 20 mg-hydrochlorothiazide 12.5 mg tablet 1 tab PO DAILY 05/02/21 montelukast 10 mg tablet 10 mg PO DAILY 05/02/21 metformin 500 mg tablet,extended release 24 hr 1,000 mg PO BID 03/30/22 hydroxyzine pamoate 25 mg capsule See Rx Instructions .Route .COMPLEX #270 caps 04/13/22 albuterol sulfate 90 mcg/actuation aerosol inhaler 2 puff inhalation Q4H PRN Cough 04/22/22 aspirin 81 mg tablet,delayed release 162 mg PO BREAKFAST 04/22/22 vitamin K2 40 mcg tablet 40 mcg PO DAILY 04/22/22 potassium citrate 99 mg capsule mg PO 04/27/22 clopidogrel 75 mg tablet 75 mg PO DAILY 30 days #30 tabs 05/09/22 fenofibrate nanocrystallized 145 mg tablet 145 mg PO DAILY 30 days #30 tabs 05/09/22 The patient was counseled on the following discharge medications and changes in medications for homegoing were reviewed. The Reason for Use, instructions for use, and potential side effects were reviewed for all new medications. The patient's questions regarding all of their medications were answered. The patient was able to verbally demonstrate an understanding of their discharge medications.
== END 2022-05-09 16:37 | disposition home or self-care (01) | DRG 65 ==
LOC: ED 13:35 → PCU 13:53
PROVIDERS: Emergency Provider Emergency Medicine; PCP Internal Medicine; Visit Provider Internal Medicine
DX: I63.9 Cerebral infarction, unspecified (principal); D68.59 Other primary thrombophilia; I47.2 Ventricular tachycardia; E11.9 Type 2 diabetes mellitus without complications; I10 Essential (primary) hypertension; E87.6 Hypokalemia; Z79.82 Long term (current) use of aspirin; Z86.73 Personal history of transient ischemic attack (TIA), and cerebral infarction without residual deficits; Z79.84 Long term (current) use of oral hypoglycemic drugs; R29.700 NIHSS score 0
CPT/HCPCS: 36415; 70450; 70496; 70498; 70551; 71045; 80048; 80061; 82962; 83036; 83735; 84484; 85025; 85610; 85730; 92610; 93005; 93306; 94762; 97116; 97161; 97165; 97530; 97535; 99285; Q9957; Q9967; A4216

== ENCOUNTER 2022-07-11 14:00 | Outpatient (RCR) | payer OTHER, SELFPAY ==
--- NOTE | 2022-04-25 15:18 | HP.PTEVAL ---
Patient's Visit Information LYN HUFF is a 67 year old F referred to Physical Therapy by Dr. Richi Zhang MD with a diagnosis of peripheral vestibulopathy. Date of Evaluation: 04/25/22 Physical Therapist: Jose Key, DPT, OCS, CSCS - Visit Plan Frequency: 1x/Week Duration: 4-6 Weeks Plan: weekly x 4-6 as needed for positional monitor(questionably positive L HD today and treated), adaptation progression(VOR 60 sec H seated 6-8x/day given today) and may need MSQ. Balance ex with head movements up. - Subjective Had a ministroke last May. Was getting better but it effects her at work the most with twisting and turning to get things done. Stress makes it worse. Was put on prednisone for poison jose elias and vertigo got worse. Dr. Zhang gave meds which helped and then she stopped and it got worse. Hydroxizine. Symptom described as pressure in forehead and then some dizzyness/spinning. If in a hurry and moving alot it can also happen. No falls. Balance is not greatly effected unless actively dizzy and then needs to sit down. 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 Better on non working days. Chills out on off days and feels better on those days. Lives alone. Basic ADLs are going OK. Dizzyness and lack of focus is dysfucntional, has not had that in a while. - Objective Walks safe adn I on firm flat surface today. steps reciprocal with one rail, bed and chair transfers I. Neck adn UE AROM WFL, hesitant to look up and makes dizzy while walking. - R HD. + L HD for dizzyness but no ntoiceable nystagmus. Treated with Guillaume and then much better. Oculomotor: no nystagmus with gaze or head shake. - head thrust. - skew eye deviation. - ocular tilt. pursuit is no problem, convergence slow. saccades make her feel goofy after 25 seconds. VOR is dizzy 4/10 after 30 seconds for 5 seconds. H seated. - Balance/Special Test Scores Functional Gait Assessment Score: 24 % Disability: 20.0000 Dizziness Score: 32 - Goals Goal 1:: Dizzyness 75% better and 1/10 at worst Goal Time Frame: 4-6 Weeks Goal 2:: DHI score 10 or less Goal Time Frame: 4-6 Weeks Goal 3:: Work without increased syptoms Goal Time Frame: 4-6 Weeks Goal 4:: FGA Goal Time Frame: 4-6 Weeks - Rehabilitation Potential Physical Therapy Diagnosis: dizzyness vestibular in nature Rehabilitation Potential: Questionable - Anticipated Interventions Patient/Client Instruction: Educate patient on: Condition, Plan of Care For the Purpose of:: To increase tolerance to activity/condition/position, To improve ability of physical actions for home/community/work/leisure Therapeutic Exercise to Include: Balance training Comment: adaptation, habituation, positoional For the Purpose of:: To increase tolerance to activity/condition/position, To improve ability of physical actions for home/community/work/leisure, To improve balance Thank you for the opportunity to evaluate your patient. For Medicare and Medicare HMO plans, please review the plan of care and approve it. It will need to be FAXED BACK to us at [phone] for Medicare purposes. For Medicare only, by signing this I certify the plan of care. Please let me know if there are questions or concerns regarding this plan of care. Physician Signature: Date:
--- NOTE | 2022-05-10 15:15 | HP.OTEVAL_ITS ---
Patient's Visit Information LYN HUFF is a 67 year old F, referred to Occupational Therapy by Dr. Richi Zhang MD, with a diagnosis of CVA. Date of Evaluation: 05/10/22 Occupational Therapist: Iveth Aiken, OTRosemarie/Kaci, CHT - Subjective This 67 year old female was seen for OT eval with dx of acute CVA. Pt states while at work at the [employer]- she noticed her right hand felt she had no control over it- states she mentioned her symptoms to her co-worker and- went to ER -pt was in [facility] and was d/c home 05/09/22. pt states most of her symptoms resolved. Pt states she is left handed- pt states she is not sure what she is having difficulty with. States she suffered a stroke about a year ago. and was just seen by Physical therapy for Vertigo issues. pt states her ex brought her to her apt. pt is not currently driving. pt does not exercise on a regular basis. - ADLs Comments: pt lives alone in one story home with basement-. pt states she bathed and dressed herself this am. pt states she was IND with light meal prep. Pt states she is IND with mtg the phone and TV. pt states she has no idea what she is having trouble with- - ROM ROM Comments: no deficits with ROM and demo control with her ROM of UE - Strength Shoulder: right 15# left 16# peak force Elbow: right 20# left 17# peak force Windows Desktop Engineer: right 50# left 60# Lateral Pinch: right 12# left 12# Tripod Pinch: right 8# left 8# Tip-to-Tip Pinch: right 8# left 8# Strength Comments: pt demo slight decrease in non dominate UE strength - Sensation Sensation Comments: denies - Nine Hole Peg Right: 20.5 sec. Left: 17.03 sec. - Quick DASH-Disab of Arm,Shoulder& Hand Quick DASH Score: 16.6650 - Goals Goal:: pt will demo understanding of her UB t-band HEP and benefits of strengthening by d/c. pt will demo a increase in right allergist/immunologist physician strength by 10# or greater to increase pts ind with IADls by d/c - Rehabilitation General Assessment: pt demo with full ROM and a decrease in right UE strength- pt would benefit from OT services 2-3 visits to ensure a HEP to increase strength and initiate a healthier lifestyle. Pt receptive and agrees to POC. Today therapist ed. pt on t-band HEP shoulder/ biceps/triceps - pt was given handout and green t-band on her HEP. pt demo understanding and agree to POC. Rehabilitation Potential: Good - Anticipated Interventions Strengthening, Neuro Reeducation, Education re assistive Equipment, Education re Diagnosis, Home Program - Visit Plan Frequency: Every Other Week Duration: 2 Weeks TEXT: Thank you for the opportunity to evaluate your patient. For Medicare and Medicare HMO plans, please review the plan of care and approve it. It will need to be FAXED BACK to us at [phone] for Medicare purposes. Please let me know if there are questions or concerns regarding this plan of care. Physician Signature: Date:
--- NOTE | 2022-05-16 15:38 | HP.PTREVAL ---
Dr. Richi Zhang MD, It has been my pleasure to treat LYN HUFF over the last 3 visits for peripheral vestibulopathy. Please see the progress note below for an update on the physical therapy plan of care! Subjective: Pt had a stroke MondayMay 07 as R hand started involuntary movements. head felt weird. Speech started slurring and squad was called. To hospital as R leg went numb. Did Catscan at hospital and MRI which showed that head vestibular mcfarland was OK but that she was having a stroke. Stayed [place] [facility] [place] two days. Also had EKG which was fine. Was put on blood thinner to help with stroke risk. Needed walker in hopstial but did not need it now at home, progressed to cane but does not always need that. R leg feels improving and is 80% back, Still feels imbalance in R leg at times. No other symptoms, no falls. Steps are being avoided. Dizzyness is now gone. New goals with PT since stroke: Better Right leg movement. Work is off right now, Will see Leatha tomorrow. has one step into house. Has basement steps to laundry. Is staying with friend. Basic ADLs being done on her own. Objective/Function: VOR without a problem today 30 seconds. FGA is +2. bend and touch floor and recover without a problem. Steps reciprocally without rail up and one rail down. Walks well on firm flat surface. LE strength symmetrical at 4/5, Sensation WFL to gross light touch B. reciprocal toe and heel tap is WFL. Overall doing better than prestroke with dizzyness(better vs less activity) as well as balance. Feeling good overall. Goals nearly met (without working) and appropriate to f/u two weeks to ensure continued goal meeting. Plan Plan: f/u two weeks to make sure LE function, dizzyness and balance still good and then d/c. Pt to call prior if dizzyness returns or balance gets worse. Balance/Gait/Functional tests - Balance/Special Test Scores Functional Gait Assessment Score: 28 % Disability: 6.6700 Dizziness Score: 32 Goals Goal 1:: Dizzyness 75% better and 1/10 at worst Goal Time Frame: 4-6 Weeks Goal Progress: Goal Met Goal 2:: DHI score 10 or less Goal Time Frame: 4-6 Weeks Goal 3:: Work without increased syptoms Goal Time Frame: 4-6 Weeks Goal Progress: not right now. Goal 4:: FGA Goal Time Frame: 4-6 Weeks Goal Progress: Goal Met Anticipated Interventions Patient/Client Instruction: Educate patient on: Condition, Plan of Care For the Purpose of:: To increase tolerance to activity/condition/position, To improve ability of physical actions for home/community/work/leisure Therapeutic Exercise to Include: Balance training Comment: adaptation, habituation, positoional For the Purpose of:: To increase tolerance to activity/condition/position, To improve ability of physical actions for home/community/work/leisure, To improve balance Please do not hesitate to contact me at [phone] by phone or if you have questions or concerns regarding this new plan of care! Sincerely, Jose Key, DPT, OCS, CSCS
--- NOTE | 2022-05-31 14:30 | HP.OTDCSUM_ITS ---
It has been my pleasure to treat LYN HUFF under orders from Dr. Richi Zhang MD, for the diagnosis of CVA for a total of 2 visit(s). Please see the following information for a summary of their discharge status. % Improvement: 85 Objective/Function: right advertising inserter strength 55# increase from 50# left advertising inserter strength 65# increase from 60#. right lateral pinch 12# left 12# same as eval. right tripod pinch 10# increase from 8# left 10# increase 8#. 9 hole peg test right 18.5 sec, this is a decrease from 20.5 sec. left 14.9 sec. this is a decrease from 17.3sec. indication of a increase in pts FMS. pt has was in need of increase in resistive t-band for her HEP- pt agrees to D.c and is receptive to joining a health and wellness program. Patient Goals: Regain Strength, Use Hand/Wrist/Arm Normally Again Goal:: pt will demo understanding of her UB t-band HEP and benefits of strengthening by d/c. pt will demo a increase in right advertising inserter strength by 10# or greater to increase pts ind with IADls by d/c Plan: D/C Discharge Comments: pt was has met OT goals for her HEP - therapist provided increase resistive t-band to continue with her HEP. pt agrees to D/C If there are questions or concerns regarding this patient's occupational therapy, please fell free to call me at [phone]. Thank you for the referral of this patient. Sincerely, Iveth Aiken, OTR/L, CHT
--- NOTE | 2022-06-01 14:49 | HP.PTREVAL_ITS ---
Dr. Richi Zhang MD, It has been my pleasure to treat LYN HUFF over the last 4 visits for peripheral vestibulopathy. Please see the progress note below for an update on the physical therapy plan of care! Subjective: Doing great with activities but dizzyness has returned a little bit. Notices dizzyness more when she goes into store. Feels funny in head but no spinning. Must stand still and let that feeling pass for a short time 10 minutes. This dizzyness started back about a week ago. Has gotten that feeling 4x since then walking into a new place. Not as bad as early April but was working then also. Goes back to Work july [address] 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 Dr. Zhang wants her taking it easy with activities. Back to Dr. Zhang in August. Objective/Function: VOR and VOR x 2 slightly uncomfortable in head, not bad. Head turns most sympptomatic and lasting 2-3 minutes 5/10, head nods not bad. - B hallpike makenna. - roll test. Pt has regressed slightly since two weeks ago with dizzy symptoms for unknown reason, may be more active or weather, or more head movements. Plan Plan: weekly x 3-4 weeks as needed for progression of habituation/adaptation ex as helpful. Questionable prognosis toward new goals. Balance/Gait/Functional tests - Balance/Special Test Scores Functional Gait Assessment Score: 27 % Disability: 10.0000 Dizziness Score: 40 Goals Goal 1:: Dizzyness 75% better and 1/10 at worst Goal Time Frame: 4-6 Weeks Goal Progress: Goal Met Goal 2:: DHI score 10 or less Goal Time Frame: 2-4 Weeks Goal Progress: Progressing, approp Goal 3:: Work without increased syptoms Goal Time Frame: 2-4 Weeks Goal Progress: not yet, approp Goal 4:: FGA Goal Time Frame: 4-6 Weeks Goal Progress: Goal Met Goal 5:: FGA and patient feel dizzy is 99% better. Goal Time Frame: 2-4 Weeks Anticipated Interventions Patient/Client Instruction: Educate patient on: Condition, Plan of Care For the Purpose of:: To increase tolerance to activity/condition/position, To improve ability of physical actions for home/community/work/leisure Therapeutic Exercise to Include: Balance training Comment: adaptation, habituation, positoional For the Purpose of:: To increase tolerance to activity/condition/position, To i mprove ability of physical actions for home/community/work/leisure, To improve balance Please do not hesitate to contact me at [phone] by phone or if you have questions or concerns regarding this new plan of care! Sincerely, Jose Key, DPT, OCS, CSCS
--- NOTE | 2022-07-11 14:23 | HP.PTDCSUM ---
It has been my pleasure to treat LYN HUFF referred by Dr. Richi Zhang MD, with the diagnosis of peripheral vestibulopathy for a total of 8 visit(s). Discharge Date: 07/11/22 Please see the following information for a summary of their discharge status. Subjective: Is very busy at work and is very tired. This is first full week back to work. Has been good with symptoms. Feels like on the verge of vertigo with stress and fatigue today with work but she is fine and no dizzyness. Doing everything she needs to do at work. Things are normal at home. sleeping is normal for her. No exercises at home. LB sore with long standing at work. Up and about at work alot as she is feeling better than after first stroke. To Dr. Zhang in August. % Improvement: 98 Objective/Function: FGa much better and no trouble with balance even with bending, looking up , turning quickly and VOR. No dizzyness today or lately. Goal 1:: Dizzyness 75% better and 1/10 at worst Goal Progress: Goal Met Goal 2:: DHI score 10 or less Goal Progress: Goal Met Goal 3:: Work without increased syptoms Goal Progress: Goal Met Goal 4:: FGA Goal Progress: Goal Met Goal 5:: FGA /30 and patient feel dizzy is 99% better. Goal Progress: Goal met FGA and 98%. Plan: d/c Discharge Comments: To Dr. Zhang in August. If there are questions or concerns regarding this patient's physical therapy, please feel free to call me at [phone]. Thank you for the referral of this patient. Sincerely, Jose Key, DPT, OCS, CSCS Balance/Gait/Functional tests - Balance/Special Test Scores Functional Gait Assessment Score: 29 % Disability: 3.3400 CATSIB Score (Max score 120 seconds): 120 Dizziness Score: 2
== END 2022-07-11 19:00 | disposition home or self-care (01) ==
LOC: PT 14:00
PROVIDERS: PCP Internal Medicine; Referring Provider Psychiatry & Neurology Neurology; Visit Provider Psychiatry & Neurology Neurology
DX: H81.90 Unspecified disorder of vestibular function, unspecified ear (principal)
CPT/HCPCS: 97110; 97161; 97164; 97166; 97530

== ENCOUNTER → 2022-08-02 | Outpatient (CLI) | payer OTHER, SELFPAY ==
--- NOTE | 2022-08-02 13:54 | BI_ITS ---
MAMMOGRAPHY - BILATERAL SCREENING REASON FOR EXAM: Female, 67 years old. Routine annual screening examination. PERTINENT HISTORY: Non-contributory. TECHNIQUE: Digital bilateral breast pb (3D mammographic acquisition) in the CC and MLO projections. 2-D mediolateral oblique (MLO) and craniocaudad (CC) views of both breasts were obtained. CAD: Full Field Digital Mammography with Computer Added Detection was performed. COMPARISON: Comparison is made with prior examination dated 07/31/2021 and 08/11/2017. FINDINGS: Breast Composition: The breasts are almost entirely fatty. There are no dominant masses or suspicious calcifications. Stable small benign-appearing bilateral axillary lymph nodes. No other significant abnormalities are identified. There has been no significant change since the prior study. BI/SCRN MAMM (CAD)W/PB BILAT IMPRESSION: Stable bilateral screening mammogram. Yearly follow-up mammogram recommended. (A) ASSESSMENT CATEGORY: BIRADS Category 2: Benign. A letter regarding these results will be sent to the patient by the facility within 30 days. Approximately 10% of breast cancers are not detected by mammography. A normal mammogram should not delay biopsy of a clinically suspicious abnormality. [id number] Electronically Signed: Harjeet Mullen MD at 15:20 EST ,
--- NOTE | 2022-08-02 14:01 | BD_ITS ---
STUDY: DUAL ENERGY X-RAY ABSORPTIOMETRY / DXA REASON FOR EXAM: Female, 67 years old. [id number] TECHNIQUE: Bone Mineral Density (BMD) measurements of lumbar spine and bilateral hips were obtained. COMPARISON: Comparison is made with prior study dated 06/09/2016. FINDINGS: Lumbar Spine (L1-L4): g/cm2 (0.854) / T-score (-2.0) / Z-score (-0.2) Findings are suggestive of osteopenia with a moderate fracture risk. Left Femur Total: g/cm2 (0.963) / T-score (0.2) / Z-score (1.4) Left Femoral Neck: g/cm2 (0.670) / T-score (-1.6) / Z-score (-0.1) Right Femur Total: g/cm2 (0.799) / T-score (-1.2) / Z-score (0.1) Right Femoral Neck: g/cm2 (0.527) / T-score (-2.9) / Z-score (-1.4) The T-Scores on the most recent prior examination were: Lumbar Spine (L1-L4): There has been worsening of bone density since the previous examination. Left Femur Total: which represents an improvement of 0.3%. Right Femur Total: which represents a worsening of 6.8%. BD/Dexa Bone Density Study IMPRESSION: The patient is considered osteoporotic as outlined below according to World Eze Organization (WHO) criteria with a high fracture risk. There has been worsening of bone density since the previous examination. Reference Information: The T-score is the number of standard deviations above or below the standard which is normal for young adults at their peak bone mineral density. The World Health Organization (WHO) interprets the T-scores as follows: Above -1 Normal bone density Between -1 and -2.5 Osteopenia Equal to / or below -2.5 Osteoporosis As a practical clinical guideline, osteopenia may be graded as follows: Mild -1 through -1.5 Moderate -1.6 through -2.0 Severe -2.1 through -2.4 The Z-score is the number of standard deviations above or below age-matched controls. A Z-score of less than -1.5 would be considered abnormal. References: 1. NIH Osteoporosis and Related Bone Diseases www osteo.org 2. International Society for Clinical Densitometry www iscd.org 3. National Osteoporosis Foundation www nof.org Electronically Signed: Harjeet Mullen MD at 13:55 EST ,
== END | disposition home or self-care (01) ==
LOC: OPBD 13:53
PROVIDERS: PCP Internal Medicine; Visit Provider Internal Medicine
DX: Z12.31 Encounter for screening mammogram for malignant neoplasm of breast (principal); Z78.0 Asymptomatic menopausal state
CPT/HCPCS: 77063; 77067; 77080

== ENCOUNTER → 2023-06-16 | Outpatient (CLI) | payer OTHER, SELFPAY ==
[2023-06-16 15:47] LABS: Hematocrit 41.6 % (37-47); Hemoglobin 14.2 g/dL (12.0-15.0); Mean Corp Hgb Conc 34.1 g/dL (32-36); Mean Corpuscular Hgb 31.3 pg (27.0-32.0); Mean Corpuscular Volume 91.8 fL (81-99); Mean Platelet Vol. 9.4 fl (6.2-12.0); Platelet Count 328 K/mm3 (150-450); RBC Distribution Width SD 47.4 fl (35.1-43.9); Red Blood Count 4.53 M/mm3 (4.2-5.4); White Blood Count 7.2 K/mm3 (4.4-11.0)
[2023-06-16 16:12] LABS: Anion Gap 5 (5-15); BUN 15 mg/dL (7-18); BUN/Creat Ratio 13.5 RATIO (10-20); Calcium,Total 9.4 mg/dL (8.5-10.1); Chloride 104 mmol/L (98-107); Creatinine, Serum 1.11 mg/dL (0.55-1.02); EST Glomerular Filtration Rate 52 mL/min (>60); Est Glom Filt Rate - Afr Amer 63 mL/min (>60); Glucose 221 mg/dL (74-106); Potassium 4.1 mmol/L (3.5-5.1); Sodium Level 139 mmol/L (136-145)
== END | disposition home or self-care (01) ==
LOC: LAB 14:32
PROVIDERS: PCP Internal Medicine; Referring Provider Nurse Practitioner Family; Visit Provider Nurse Practitioner Family
DX: I47.20 Ventricular tachycardia, unspecified (principal); Z86.73 Personal history of transient ischemic attack (TIA), and cerebral infarction without residual deficits
CPT/HCPCS: 36415; 80048; 85027

== ENCOUNTER 2023-06-26 06:47 | Day surgery (SDC) | payer OTHER, SELFPAY ==
--- NOTE | 2023-06-20 09:08 | PCM.HP.BLA ---
History and Physical Date of Admission: 06/26/23 Pleasant 68-year-old lady who presents to the cardiac laboratory specialist for a loop recorder implant. She has a history of transient ischemic attack in May 2021. She was seen in the hospital evaluated with an echocardiogram which demonstrated an ejection fraction of 55 to 60% with no wall motion abnormalities noted. She had a 30-day event monitor placed in July 2021 and there was a 4 beat run of a wide-complex tachycardia. No evidence of atrial fibrillation was noted. She was asked to see us for follow-up for the above. She does have a history of hyperlipidemia and has been on fenofibrate for the above. She had been on atorvastatin and rosuvastatin in the past but it caused significant myalgias and that was discontinued. An evaluation for hypercoagulable states revealed a marginally low Antithrombin 3 level. She has had no dizziness or diaphoresis no near syncope or syncope she has been on aspirin 81 mg a day. She did undergo a coronary calcium score in 2018 which was 147 suggesting moderate plaque burden. A stress test after that demonstrated no evidence of ischemia at a moderate workload. Patient acknowledges chest pain with gradual onset and lasts for minutes. This is located in the center of her chest and does not radiate to left arm, jaw, or neck. This is rated a 4/10. Precipitating factors include rest and emotional stress. Relieving factors include rest. The pain is not associated with shortness of breath, nausea, vomiting, lightheadedness, confusion, presyncope, syncope, abdominal symptoms. She acknowledges noted discomfort previously over the last month. She denies palpitations. She denies bilateral lower extremity edema. She denies claudication. She states chronic shortness of breath with activity that she attributes to asthma. This is not new or worsening. She denies shortness of breath at rest, orthopnea, or PND. She denies chronic cough. She denies significant, sudden weight gain. She denies lightheadedness, dizziness, near-syncope, or syncope. She denies blood in urine, blood in stool, or epistaxis. He denies fever with chills. She denies myalgia. She denies fatigue. 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 Intake Vital Signs See EMR Allergies See EMR Medications See EMR [facility] Medical History Ambulates with cane Anxiety Arthritis Asthma Carotid artery stenosis Diabetes type 2, controlled Essential hypertension GERD (gastroesophageal reflux disease) Glaucoma History of edema History of gallstones History of hiatal hernia History of IBS History of pain when walking History of pneumonia History of UTI Hormone deficiency IBS (irritable bowel syndrome) Irritant contact dermatitis due to plant Leg cramps Migraine headache Non-smoker DAVID on CPAP Poison joes elias Polycystic ovaries Post-menopausal Pulmonary embolism Pulmonary embolism Shingles Shortness of breath on exertion Sleep apnea Ulcer Vaginal bleeding Wears glasses Surgical History H/O exploratory laparotomy History of D&C History of repair of rotator cuff Hx of cholecystectomy Family History Mother Myocardial infarction CVA (cerebral vascular accident) Hypertension Heart diseaseFather Myocardial infarction Skin cancer Asthma Respiratory disease Cancer prostateBrother Asthma Myocardial infarction Respiratory disease Heart diseaseSister Autoimmune disorder Lupus Skin cancer Cancer lungSister Autoimmune disorder Social History Smoking Status: Never smoker Electronic Cigarette Use: not used second hand exposure: No alcohol intake: never substance use type: does not use caffeine: No seatbelt use: always do you feel safe at home: Yes ROS Const Const: Negative for fatigue, weakness, body ache, fever(s) or chills ENT ENT: Positive for dizziness; Negative for Nosebleed/epistaxis Cardio Chest Pain: Yes Palpitations: No Edema: None Muscle aches with walking: None Resp Respiratory: Positive for SOB with activity; Negative for SOB at rest, SOB orthopnea\SOB lying down, Cough or paroxysmal nocturnal dyspnea GI GI: Negative nausea, vomiting blood/hematemesis, bright, red blood in stools or black,tarry stools : Negative for hematuria or frequent nighttime urination/ nocturia Musc Musc: Negative for muscle aches/ myalgia Skin Skin: Negative non-healing lesions or rash Neuro Neuro: Positive for dizziness; Negative for lightheadedness, near syncope, syncope, orthostatic symptoms or weakness Endo Endo: Negative for fatigue Allergy Allergy/Immunology: Negative for rash Cardiology Exam Const Appearance: cooperative, healthy appearing, comfortable and no acute distress Nutritional Appearance: average body habitus and well nourished Orientation: alert, awake and oriented x3 Head Head: normal to inspection Ears: hearing grossly normal bilaterally Nose: external nose normal Face and Sinus: face symmetric Mouth: moist mucous membranes Eyes General: appearance normal, both eyes and all related structures Eyelids: eyelids normal EOM: EOM intact bilaterally Neck Neck: normal visual inspection and no JVD JVD: +5 Carotids: normal carotid upstroke Chest Chest inspection: normal inspection of the chest, symmetric chest movement and normal respiratory effort; Negative cough Auscultation: Bilateral: Clear to Auscultation Cardio Palpation: normal PMI Rate: regular rate Rhythm: regular rhythm Heart sounds: S1 normal and S2 normal; Negative rub, gallop or murmur GI GI: normal to inspection Neuro General: patient alert, patient awake, patient oriented x3 and CN's II-XI intact bilaterally Skin Skin: no rashes or lesions noted Extremities Pulses: Normal: Right Posterior Tibial Pulse, Left Posterior Tibial Pulse, Right Radial Pulse and Left Radial Pulse Lower Extremity Edema: None: Bilateral Psych Psychological: normal affect Supplemental Info Supplemental Information 30 DAY EVENT MONITOR 08/14/2021-09/12/2021 Summary: The patient's monitoring period was 08/14/2021 - 09/12/2021. Baseline sample showed Sinus Rhythm w/PVCs with a heart rate of 88 bpm. There were 0 critical, 0 serious, and 4 stable events that occurred. Automatically Detected Events: 1 Stable: Sinus Rhythm w/PVCs 1 Stable: Sinus Rhythm w/Run of V-Tach (4 Beats )/Bigeminal PVCs/PVCs (24 in 1/Min)/Artifact ECHOCARDIOGRAM 05/28/2021 Interpretation Summary The estimated ejection fraction is EF 55-60 %. Normal LV systolic function Negative Bubble study No PFO No significant changes from Echo 02/21/2017 ? Exercise myocardial perfusion stress test. 08/15/2018 Conclusion: Normal exercise myocardial perfusion stress test at a moderate workload. Preserved ejection fraction. Calcium Scoring Date of Study::?07/26/18 Coronary Calcium Scoring: The results of the coronary calcification analysis are provided and demonstrate the following. Left main coronary calcium score of 0. Left anterior descending artery score 129. Left circumflex artery score 15.5. Right coronary artery score 2.3. Total calcium score 147. The above is suggestive of moderate plaque burden with moderate nonobstructive coronary disease likely. Conclusion moderate plaque burden for age. Total calcium score 147. CAROTID DUPLEX 07/26/2018 Interpretation Summary Mild (<50%) stenosis right extracranial internal carotid. Mild (<50%) stenosis left extracranial internal carotid. Flow within the vertebral arteries is antegrade bilaterally. Assessment and Plan Assessment and Plan CVA (cerebral vascular accident): Status: Chronic Qualifiers: CVA mechanism: unspecified Qualified Code(s): I63.9 - Cerebral infarction, unspecified Plan: She has a history of CVA in May 2021 as well as April 2022. She has had work-up with neurologist with no obvious etiology of CVA. Her case was reviewed further with Dr. Kumar. Patient will proceed with loop recorder implant to monitor for undetected atrial fibrillation.
[2023-06-23 08:57] VITALS: BMI 44.9
--- NOTE | 2023-06-26 08:50 | CL.IE_ITS ---
Patient: LYN HUFF Study Date: 06/26/2023 Performing: Terrance Kumar MD : [id number] Age: 68 Gender: female PROCEDURES PERFORMED [id number])INSERTION OF LOOP RECORDER INDICATIONS PROCEDURE DETAILS The patient was brought to the Catheterization Lab in the postabsorptive nonsedated state. Informed consent was obtained prior to the procedure. Local anesthetic was given subcutaneously to the left upper chest area with Lidocaine 2%. Incision was made to the left upper chest. Steri-strips applied to Lt chest area. The patient tolerated the procedure well. Estimated Blood Loss: < 10 mls IMPLANTED / EX-PLANTED DEVICES IMPLANTED DEVICE(S): ICM Loop Recorder - Human Services Manager: [employer], Model # [id number] , Serial # [id number] DEVICE PARAMETERS CONCLUSIONS / RECOMMENDATIONS PROCEDURE MEDICATIONS Versed 1 mg IV Oxygen: 2 L/min via nasal cannula Ancef 2 Gm IV @ 06/26/2023 08:27:42 Signed By Terrance Kumar MD On 06/26/2023 08:49:41 Terrance Kumar MD
== END 2023-06-26 09:45 | disposition home or self-care (01) ==
PROVIDERS: PCP Internal Medicine; Referring Provider Internal Medicine Cardiovascular Disease; Visit Provider Internal Medicine Cardiovascular Disease
DX: Z86.73 Personal history of transient ischemic attack (TIA), and cerebral infarction without residual deficits (principal); E11.9 Type 2 diabetes mellitus without complications; I49.3 Ventricular premature depolarization; I10 Essential (primary) hypertension; J45.909 Unspecified asthma, uncomplicated
CPT/HCPCS: 33285; 99152; J7040

== ENCOUNTER → 2023-11-29 | Outpatient (CLI) | payer MEDICARE, SELFPAY ==
--- NOTE | 2023-11-29 14:23 | BI_ITS ---
MAMMOGRAPHY - BILATERAL SCREENING REASON FOR EXAM: Female, 68 years old. Routine annual screening examination. PERTINENT HISTORY: Non-contributory. TECHNIQUE: Digital bilateral breast pb (3D mammographic acquisition) in the CC and MLO projections. 2-D mediolateral oblique (MLO) and craniocaudad (CC) views of both breasts were obtained. CAD: Full Field Digital Mammography with Computer Added Detection was performed. COMPARISON: Comparison is made with prior study dated August 02, 2022. FINDINGS: Breast Composition: The breasts are almost entirely fatty. There are no dominant masses or suspicious calcifications. A loop recording device is seen overlying the deep central medial aspect of the left breast. Stable benign-appearing bilateral axillary lymph nodes. No other significant abnormalities are identified. There has been no significant change since the prior study. BI/SCRN MAMM (CAD)W/PB BILAT IMPRESSION: Stable bilateral screening mammogram. Yearly follow-up mammogram recommended. (A) ASSESSMENT CATEGORY: BIRADS Category 2: Benign. A letter regarding these results will be sent to the patient by the facility within 30 days. Approximately 10% of breast cancers are not detected by mammography. A normal mammogram should not delay biopsy of a clinically suspicious abnormality. [id number] Electronically Signed: Harjeet Mullen MD at 15:24 EDT ,
== END | disposition home or self-care (01) ==
LOC: OPBI 14:23
PROVIDERS: PCP Internal Medicine; Referring Provider Internal Medicine; Visit Provider Internal Medicine
DX: Z12.31 Encounter for screening mammogram for malignant neoplasm of breast (principal)
CPT/HCPCS: 77063; 77067

== ENCOUNTER → 2023-12-26 | Outpatient (CLI) | payer MEDICARE, SELFPAY ==
--- NOTE | 2023-12-26 14:08 | STRESSREP ---
Stress Test Report Pharmacologic myocardial perfusion stress test. 68-year-old lady with a history of chest pain Resting EKG demonstrates sinus rhythm with a rate of 84 bpm. Resting blood pressure is 118/80 mmHg. 0.4 mg of regadenoson was infused per usual protocol followed by rapid intravenous saline flush injection. Continuous EKG monitoring was performed. The maximum heart rate was 90 bpm which was 58% of max impacted heart rate the maximum workload was 1 metabolic equivalent. At rest there were T wave inversions noted in the inferior leads and at peak infusion nonspecific ST changes were noted which did not meet the criteria for ischemia. No clinical angina is noted. The final blood pressure was 126/72 mmHg. Myocardial perfusion protocol. 14.9 mCi of technetium 99m sestamibi was injected at rest. 0.4 mg of regadenoson was infused per usual protocol. At peak infusion 45 mCi of technetium 99m sestamibi was injected stress images were obtained stress and rest images were reconstructed and compared in the short axis vertical long and horizontal long axis. Gated images were also obtained. Perfusion SPECT analysis: Review of the stress images demonstrate normal uptake of tracer noted in all areas of the myocardium except for the mid anteroseptal wall with reduced perfusion. The resting images similar demonstrated normal uptake of tracer noted in all areas of the myocardium. The above is suggestive of mid anteroseptal ischemia. No previous infarct is noted. Gated SPECT analysis: The gated ejection fraction is 69%. Conclusion: Abnormal pharmacologic myocardial perfusion stress test. Preserved ejection fraction. Mid anterior septal ischemia
== END | disposition home or self-care (01) ==
PROVIDERS: PCP Internal Medicine; Referring Provider Nurse Practitioner Family; Visit Provider Nurse Practitioner Family
DX: R07.9 Chest pain, unspecified (principal); R06.09 Other forms of dyspnea
CPT/HCPCS: 78452; 93017; A9500; A4216; J2785

== ENCOUNTER 2024-01-15 09:14 | Day surgery (SDC) | payer MEDICARE, SELFPAY ==
--- NOTE | 2024-01-03 08:08 | PCM.HP.BLA ---
History and Physical Date of Admission: 01/15/24 Pleasant 68-year-old lady who presents for a cardiac catheterization following an abnormal stress test. She has a history of transient ischemic attack in May 2021. She was seen in the hospital evaluated with an echocardiogram which demonstrated an ejection fraction of 55 to 60% with no wall motion abnormalities noted. She had a 30-day event monitor placed in July 2021 and there was a 4 beat run of a wide-complex tachycardia. No evidence of atrial fibrillation was noted. She was asked to see us for follow-up for the above. She does have a history of hyperlipidemia and has been on fenofibrate for the above. She had been on atorvastatin and rosuvastatin in the past but it caused significant myalgias and that was discontinued. An evaluation for hypercoagulable states revealed a marginally low Antithrombin 3 level. She has had no dizziness or diaphoresis no near syncope or syncope she has been on aspirin 81 mg a day. She did undergo a coronary calcium score in 2018 which was 147 suggesting moderate plaque burden. A stress test after that demonstrated no evidence of ischemia at a moderate workload. Patient acknowledges chest pain with gradual onset and lasts for minutes. This is located in the center of her chest and does not radiate to left arm, jaw, or neck. This is rated a 4/10. Precipitating factors include rest and emotional stress. Relieving factors include rest. The pain is not associated with shortness of breath, nausea, vomiting, lightheadedness, confusion, presyncope, syncope, abdominal symptoms. She acknowledges noted discomfort previously over the last month. She denies palpitations. She denies bilateral lower extremity edema. She denies claudication. She states chronic shortness of breath with activity that she attributes to asthma. This is not new or worsening. She denies shortness of breath at rest, orthopnea, or PND. She denies chronic cough. She denies significant, sudden weight gain. She states lightheadedness. She denies dizziness, near-syncope, or syncope. She denies blood in urine, blood in stool, or epistaxis. He denies fever with chills. She denies myalgia. She states fatigue that is intermittent. 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 Intake Vital Signs See EMR Allergies See EMR Medications See EMR [facility] Medical History Ambulates with cane Anxiety Arthritis Asthma Carotid artery stenosis Diabetes type 2, controlled Essential hypertension GERD (gastroesophageal reflux disease) Glaucoma History of edema History of gallstones History of hiatal hernia History of IBS History of pain when walking History of pneumonia History of UTI Hormone deficiency IBS (irritable bowel syndrome) Irritant contact dermatitis due to plant Leg cramps Migraine headache Non-smoker DAVID on CPAP Poison jose elias Polycystic ovaries Post-menopausal Pulmonary embolism Pulmonary embolism Shingles Shortness of breath on exertion Sleep apnea Ulcer Vaginal bleeding Wears glasses Surgical History H/O exploratory laparotomy History of D&C History of repair of rotator cuff Hx of cholecystectomy Status post placement of implantable loop recorder (06/26/23) Family History Mother Myocardial infarction CVA (cerebral vascular accident) Hypertension Heart diseaseFather Myocardial infarction Skin cancer Asthma Respiratory disease Cancer prostateBrother Asthma Myocardial infarction Respiratory disease Heart diseaseSister Autoimmune disorder Lupus Skin cancer Cancer lungSister Autoimmune disorder Social History Smoking Status: Never smoker Electronic Cigarette Use: not used second hand exposure: No alcohol intake: never substance use type: does not use caffeine: No seatbelt use: always do you feel safe at home: Yes ROS Const Const: Positive for fatigue, daytime sleepiness (after work) and difficulty sleeping (at times); Negative for weakness, headache(s), frequent falls or excessive sweating Eyes Eyes: Negative for loss of peripheral vision, transient loss of vision, blurry vision, double vision or tunnel vision ENT ENT: Negative for headache(s), dizziness, Nosebleed/epistaxis or balance problems Cardio Chest Pain: No Palpitations: No Edema: None Muscle aches with walking: None Resp Respiratory: Positive for SOB with activity; Negative for SOB at rest, SOB orthopnea\SOB lying down, Cough or paroxysmal nocturnal dyspnea GI GI: Positive for nausea, vomiting and heartburn (some); Negative black,tarry stools : Negative for hematuria Musc Musc: Positive for muscle aches/ myalgia and joint pain; Negative for muscle weakness or balance problems Skin Skin: Negative non-healing lesions, rash or unusual bruising Neuro Neuro: Positive for lightheadedness and vertigo; Negative for dizziness, near syncope, syncope, frequent falls, headache(s), weakness, blurry vision, double vision or lack of coordination Michael Hematologic/Lymphatic: Negative for easy bleeding or easy bruising Endo Endo: Positive for fatigue; Negative for excessive sweating or increased thirst/drinking Psych Psych: Negative for anxiety or depression Allergy Allergy/Immunology: Negative for hives and Negative for rash Cardiology Exam Const Appearance: cooperative, healthy appearing, comfortable and no acute distress Nutritional Appearance: well nourished and obese Orientation: alert, awake and oriented x3 Head Head: normal to inspection Ears: hearing grossly normal bilaterally Nose: external nose normal Face and Sinus: face symmetric Mouth: moist mucous membranes Eyes General: appearance normal, both eyes and all related structures Eyelids: eyelids normal EOM: EOM intact bilaterally Neck Neck: normal visual inspection and no JVD JVD: +5 Carotids: normal carotid upstroke Chest Chest inspection: normal inspection of the chest, symmetric chest movement and normal respiratory effort; Negative cough Auscultation: Bilateral: Diminished Lung Sounds Cardio Palpation: normal PMI Rate: regular rate Rhythm: regular rhythm Heart sounds: S1 normal and S2 normal; Negative rub, gallop or murmur GI GI: normal to inspection and obese Neuro General: patient alert, patient awake, patient oriented x3 and CN's II-XI intact bilaterally Skin Skin: no rashes or lesions noted Extremities Pulses: Normal: Right Posterior Tibial Pulse, Left Posterior Tibial Pulse, Right Radial Pulse and Left Radial Pulse Lower Extremity Edema: None: Right and Trace: Left Psych Psychological: normal affect Supplemental Info Supplemental Information Stress Test 12/26/2023: Conclusion: Abnormal pharmacologic myocardial perfusion stress test. Preserved ejection fraction. Mid anterior septal ischemia 30 DAY EVENT MONITOR 08/14/2021-09/12/2021 Summary: The patient's monitoring period was 08/14/2021 - 09/12/2021. Baseline sample showed Sinus Rhythm w/PVCs with a heart rate of 88 bpm. There were 0 critical, 0 serious, and 4 stable events that occurred. Automatically Detected Events: 1 Stable: Sinus Rhythm w/PVCs 1 Stable: Sinus Rhythm w/Run of V-Tach (4 Beats )/Bigeminal PVCs/PVCs (24 in 1/Min)/Artifact Echocardiogram from 05/07/2022: Interpretation Summary Left ventricular systolic function is normal. The estimated ejection fraction is 65 %. Trivial mitral valve insufficiency. Trivial tricuspid valve insufficiency. Mild focal aortic valve calcification. Trivial pulmonic valve insufficiency. Right ventricular systolic pressure estimated to be 29 mmHg. No evidence for diastolic dysfunction. Comment: Transthoracic echocardiogram from 02-21-2017 and 05-28-2021: Negative agitated saline contrast study for right to left interatrial shunt. ECHOCARDIOGRAM 05/28/2021 Interpretation Summary The estimated ejection fraction is EF 55-60 %. Normal LV systolic function Negative Bubble study No PFO No significant changes from Echo 02/21/2017 ? Exercise myocardial perfusion stress test. 08/15/2018 Conclusion: Normal exercise myocardial perfusion stress test at a moderate workload. Preserved ejection fraction. Calcium Scoring Date of Study::?07/26/18 Coronary Calcium Scoring: The results of the coronary calcification analysis are provided and demonstrate the following. Left main coronary calcium score of 0. Left anterior descending artery score 129. Left circumflex artery score 15.5. Right coronary artery score 2.3. Total calcium score 147. The above is suggestive of moderate plaque burden with moderate nonobstructive coronary disease likely. Conclusion moderate plaque burden for age. Total calcium score 147. CAROTID DUPLEX 07/26/2018 Interpretation Summary Mild (<50%) stenosis right extracranial internal carotid. Mild (<50%) stenosis left extracranial internal carotid. Flow within the vertebral arteries is antegrade bilaterally. Assessment and Plan Assessment and Plan (1) Abnormal Stress Test: Status: Chronic Plan: Patients most recent stress test from 12/26/2023 was abnormal, and demonstrated mid anterior septal ischemia. She has complained of PATEL. Will proceed with a cardiac catheterization to further assess this. Depending on results, further recommendations will be made.
--- NOTE | 2024-01-04 15:15 | RAD_ITS ---
INDICATION: Pre-operative: [facility] EXAMINATION/TECHNIQUE: X-RAY - XR Chest 2 Views COMPARISON: No relevant prior comparison study available FINDINGS: LINES/DEVICES: Loop recorder device in the anterior chest wall LUNGS: No consolidation, edema or effusion. No pneumothorax. MEDIASTINUM AND CARDIOVASCULAR STRUCTURES: Cardiac silhouette not enlarged. Central airways and mediastinal contour are unremarkable. BONES AND SOFT TISSUES: Mild degenerative changes of the spine. RAD/Chest PA and Lateral IMPRESSION: No radiographic evidence of acute cardiopulmonary disease. Electronically Signed: Weston Pickett MD at 15:44 EDT ,
[2024-01-04 16:39] LABS: Absolute Lymphocyte Count 2.93 X10^3/uL (0.83-4.51); Absolute Neutrophil Count 5.2 X10^3/uL (2.0-7.7); Basophil# 0.07 X10^3/uL; Basophil% 0.8 % (0-1); Eosinophil# 0.21 X10^3/uL; Eosinophils% 2.3 % (0-5); Hematocrit 43.8 % (37-47); Hemoglobin 14.5 g/dL (12.0-15.0); Lymphocyte # 2.93 X10^3/ul (0.83-4.51); Lymphocyte % 31.9 % (19-41); Mean Corp Hgb Conc 33.1 g/dL (32-36); Mean Corpuscular Hgb 29.8 pg (27.0-32.0); Mean Corpuscular Volume 90.1 fL (81-99); Mean Platelet Vol. 9.8 fl (6.2-12.0); Monocyte# 0.71 X10^3/uL; Monocyte% 7.7 % (0-10); NRBC Flagged by Analyzer 0 % (0-5); Neutrophil # 5.22 X10^3/uL (2.7-7.7); Neutrophil % 56.9 % (47-70); Platelet Count 324 K/mm3 (150-450); RBC Distribution Width CV 13.1 % (11.6-14.6); RBC Distribution Width SD 43.1 fl (35.1-43.9); Red Blood Count 4.86 M/mm3 (4.2-5.4); White Blood Count 9.2 K/mm3 (4.4-11.0)
[2024-01-04 17:09] LABS: Anion Gap 7 (5-15); BUN 14 mg/dL (7-18); BUN/Creat Ratio 14.9 RATIO (10-20); Calcium,Total 9.2 mg/dL (8.5-10.1); Chloride 101 mmol/L (98-107); Creatinine, Serum 0.94 mg/dL (0.55-1.02); EST Glomerular Filtration Rate 63 mL/min (>60); Est Glom Filt Rate - Afr Amer 76 mL/min (>60); Glucose 241 mg/dL (74-106); Potassium 4.1 mmol/L (3.5-5.1); Sodium Level 135 mmol/L (136-145)
[2024-01-12 08:14] VITALS: BMI 48.2
--- NOTE | 2024-01-15 11:39 | CL.D_ITS ---
Patient Name: LYN HUFF Study Date: 01/15/2024 Performing: Terrance Kumar MD Ht: 62 inches 157.48 cm : 1955 Wt: 264 lbs 119.75 kg Age: 68 Gender: female BSA: 2.15 PROCEDURE(S) PERFORMED DC01-([id number])LHC/COR/LV CLINICAL PROFILE AND INDICATIONS Indications: Suspected CAD Heart Failure: None Stress/Imaging Date: 12/26/23 CAD Presentations: Unstable angina. CONCLUSIONS Three-vessel coronary artery disease involving the left anterior descending artery, diagonal vessel, obtuse marginal branch, and posterior descending artery in a diabetic with preserved ejection fraction. RECOMMENDATIONS Referred for immediate PCI DESCRIPTION OF PROCEDURE The patient arrived to the procedure lab. The risks and benefits of the procedure as well as a full description of our services here and current unavailability of surgical backup were fully explained to the patient and/or their significant other prior to the catheterization. The Timeout was completed, verifying the correct patient and procedure. The patient's procedural site was prepped and draped in the usual fashion. Local anesthetic was given subcutaneously to right radial region with Lidocaine 2%. Using a modified Seldinger technique, arterial access was obtained via the right radial artery, a 5Fr sheath was inserted. Left Coronary Artery selective angiography was performed in multiple views using a 5 Fr. 4.0 Aspen catheter. Right Coronary Artery selective angiography was then performed in multiple views using a 5 Fr. 4.0 Aspen catheter. Left Ventriculography was performed in RAM projection using a 5 Fr. Pigtail catheter. LV to AO pullback pressures were then recorded. CORONARY ANGIOGRAPHY DOMINANCE: Right Dominant LEFT HEART ASSESSMENT Left Ventricular Ejection Fraction: by LV Gram 60 % Normal LV wall motion Normal Left Ventricular systolic function LEFT MAIN: Angiographically normal LEFT ANTERIOR DESCENDING ARTERY: Medium size vessel with a large first diagonal branch. The mid segment has 3 tandem 80% stenosis including the ostium of the diagonal vessel as well. CIRCUMFLEX ARTERY: Nondominant vessel with a first obtuse marginal branch with a proximal 70% stenotic lesion noted. RIGHT CORONARY ARTERY: Large dominant right coronary artery with mild proximal and mid segment disease in the posterior descending artery with a focal 80% stenotic lesion. COMPLICATIONS PROCEDURE MEDICATIONS Versed 1 mg IV Fentanyl 50 mcg IV Oxygen: 2 L/min via nasal cannula Heparin given IA 01/15/2024 11:18:08 Verapamil 2.5mg, Ntg 100mcgs, 3000 units of Heparin given IA 01/15/2024 11:18:08 SUMMARY OF HEMODYNAMIC DATA Time AIR REST ECG 10:35:36 Art 154/77 (102) 11:02:39 AO 146/73 (96) SA 11:16:43 AO 141/89 (112) 11:20:36 LV 157/17, 25 11:25:08 LV 158/18, 30 11:25:16 LV 158/19, 30 11:26:17 LV 148/20, 32 11:26:26 LVp 146/21, 31 11:26:29 AOp 150/79 (109) 11:26:36 AO 158/82 (112) 11:39:37 ECG 11:39:44 11:39:44 Signed By Terrance Kumar MD On 01/15/2024 12:28:34 Signed By Terrance Kumar MD On 01/15/2024 11:38:22 Terrance Kumar MD
--- NOTE | 2024-01-15 13:49 | CL.I_ITS ---
Patient Name: LYN HUFF Study Date: 01/15/2024 Performing: Asya Rose MD Ht: 62 inches 157.48 cm : 1955 Wt: 264 lbs 119.75 kg Age: 68 Gender: female BSA: 2.15 PROCEDURE(S) PERFORMED IC12-(09407/[id number])ANTHONY W/WO PTCA, SINGLE CORONARY ARTERY IC01-(56130)PTCA, SINGLE CORONARY ARTERY CLINICAL PROFILE AND CO-MORBIDITIES Indications: Suspected CAD Heart Failure: None Stress/Imaging Date: 12/26/23 CAD Presentations: Unstable angina. CONCLUSIONS Drug-eluting stent to proximal LAD and PTCA to mid LAD and ostial diagonal 1 as described. Stent did not cross into the mid LAD and ostial diagonal 1. RECOMMENDATIONS Refer for CABG DESCRIPTION OF PROCEDURE The patient arrived to the procedure lab. The risks and benefits of the procedure as well as a full description of our services here and current unavailability of surgical backup were fully explained to the patient and/or their significant other prior to the catheterization. The Timeout was completed, verifying the correct patient and procedure. The patient's procedural site was prepped and draped in the usual fashion. Local anesthetic was given subcutaneously to right radial region with Lidocaine 2% Using a modified Seldinger technique,arterial access was obtained via the right radial artery, a 5Fr sheath was inserted. Left Coronary Artery selective angiography was performed in multiple views using a 5 Fr. 4.0 Easley catheter. Right Coronary Artery selective angiography was then performed in multiple views using a 5 Fr. 4.0 Easley catheter. Left Ventriculography was performed in RAM projection using a 5 Fr. Pigtail catheter. LV to AO pullback pressures were then recorded.Arrow 40cc 7.5F UltraFlex IABP - Qty: 1 Each Part #: [id number] images were reviewed and options discussed. A decision was then made to proceed with an Intervention, IVUS or other adjunct procedure. 0.014 BMW 190 Guide wire was advanced to the LAD. XB 3 Guide catheter was inserted and engaged into the LCA. 180 CM RUNTHROUGH EXTRA FLOPPY Guide wire was inserted DIAGNONAL EMERGE 2.25 X 20 Balloon catheter was inserted. Balloon catheter was advanced across lesion in the first diagonal, ostial. PTCA balloon inflated at 8 atms for 24 secs. Angiogram performed post balloon dilatation. MATHIEU FRONTIER 2.25 X 22 Drug Eluting stent was inserted. Angiogram performed pre stent deployment. Drug Eluting stent was removed intact, failed to cross lesion Drug Eluting stent was reinserted Drug Eluting stent was advanced across the lesion in the LAD, mid. onxy frontier 2.25 x 22 Drug Eluting stent was removed intact, failed to cross lesion Angiogram performed post stent deployment. MATHIEU FRONTIER 2.0 X 8 Drug Eluting stent was inserted. Angiogram performed pre stent deployment. Drug Eluting stent was removed intact, failed to cross lesion Angiogram performed pre stent deployment. WHISPER MS 0.14 X 190 Guide wire was inserted as a brisa wire Angiogram performed GUIDELINER 6 FR Guide catheter was inserted and engaged into the LCA. EMERGE 2 X 20 Balloon catheter was inserted. Balloon catheter was advanced across lesion in the LAD, mid. PTCA balloon inflated at 10 atms for 25 secs. MATHIEU FRONTIER 2.25 X 12 Drug Eluting stent was inserted. Drug Eluting stent was advanced across the lesion in the LAD, mid. Angiogram performed post stent deployment. The arterial sheath was sutured in place with heparinized normal saline under pressure INTERVENTION INFORMATION LESION SITE: 1st Diagonal (Ostial) Lesion Complexity: High/C, chronic total occlusion: No, lesion at bifurcation: Yes, thrombus present: No, lesion length: 12 mm, culprit lesion: Yes, Previously treated lesion: No Pre Stenosis: 80 % Pre intervention ANABELL flow: 3 PROCEDURE: Balloon Angioplasty Post Stenosis: 80 % Post intervention ANABELL flow: 3 Lesion Devices: Cordis 6 Fr XB3.0 100cm Guide Catheter Terumo .014 180cm Runthrough Extra Floppy straight Joselito Sci NC EMERGE MR 2.25x20 BALLOON LESION SITE: LAD (Mid) Lesion Complexity: High/C, chronic total occlusion: No, lesion at bifurcation: Yes, thrombus present: No, lesion length: 20 mm, culprit lesion: Yes, Previously treated lesion: No Pre Stenosis: 80 % Pre intervention ANABELL flow: 3 PROCEDURE: Balloon Angioplasty A BMW wire was inserted into the LAD and a run-through wire was inserted into the diagonal. PTCA was performed with a 2.25mm balloon inserted into the diagonal extending into the mid LAD. The plan was to stent all the way from the diagonal into the LAD. The initial stent did not cross despite predilatation. At this point we noted dissection in the diagonal branch. However since the stent was not crossing and PTCA result looked stable, we felt that stopping the procedure and sending the patient for bypass surgery would be appropriate. While the initial picture after pulling the wire back showed stable result, further images reveal proximal LAD dissection that was compromising blood flow. Patient was also having chest pain. We requested transfer to a facility with CT surgery. Dr. Bassett at [facility] was contacted and accepted the patient. We managed to cross the proximal LAD dissection and placed a wire in the diagonal branch.. PTCA was performed in the proximal to mid LAD and a stent was placed in the proximal LAD restoring ANABELL-3 flow in the vessel. Patient's chest pain also resolved. Patient does have residual disease in the LAD and diagonal at this time which will require CABG. Patient is currently stable and will be transferred to [facility] for possible CABG. Post Stenosis: 30 % Post intervention ANABELL flow: 3 Lesion Devices: Joselito Sci NC EMERGE MR 2.00x20 BALLOON COMPLICATIONS No Complications PROCEDURE MEDICATIONS Versed 1 mg IV Fentanyl 50 mcg IV Fentanyl 50 mcg IV Oxygen: 2 L/min via nasal cannula Heparin given IA 01/15/2024 11:18:08 Heparin 6000 unit(s) IV 01/15/2024 11:37:46 Heparin 2000 unit(s) IV 01/15/2024 12:03:48 Heparin 25,000u / 250ml D5W @ 800 u/hr IV started 01/15/2024 12:23:41 Nitro glycerin 25mg / 250ml D5W @ 5 mcg/min IV started 01/15/2024 13:07:09 Verapamil 2.5mg, Ntg 100mcgs, 3000 units of Heparin given IA 01/15/2024 11:18:08 SUMMARY OF HEMODYNAMIC DATA Time AIR REST ECG 09:37:03 ECG 10:35:36 Art 154/77 (102) 11:02:39 AO 146/73 (96) SA 11:16:43 AO 141/89 (112) 11:20:36 LV 157/17, 25 11:25:08 LV 158/18, 30 11:25:16 LV 158/19, 30 11:26:17 LV 148/20, 32 11:26:26 LVp 146/21, 31 11:26:29 AOp 150/79 (109) 11:26:36 AO 158/82 (112) 11:39:37 AO 120/70 (90) 11:52:51 AO 145/85 (109) 12:21:41 AO 139/69 (95) 12:49:39 Art 0/0 (-14) 13:20:14 PW 163/159 (116) PV 13:20:14 13:39:17 Signed By Asya Rose MD On 01/15/2024 1:48:46 PM Asya Rose MD
--- NOTE | 2024-01-15 14:14 | CRPHASE1 ---
Patient Communication Patient Information PHII Cardiac Rehab Discussed with Patient:: Yes Guide to Cardiac Rehab Given to Patient:: Yes Cardiac Rehab Facility Choice List Given to Patient:: Yes Communication to Cardiac Rehab Choice Program [facility] PHII:: Communication Given to [facility]:: [facility] Phase II Cardiac Rehab:: Yes Sessions:: 36 sessions - 3 days/wk, 12 weeks Cardiac Rehabilitation Info Program Information Cardiac Rehabilitation Program Information: Cardiac Rehab The cardiac rehab team at [facility] consists of highly skilled exercise physiologists, nurses, respiratory therapists and physicians working together with you. Our purpose is to help you have a full recovery and achieve the goals you set for yourself. Over the years many of our patients have returned to activities they assumed they would never do again! We can help restore your confidence and motivation to make lifestyle changes that can have a significant impact on your health and quality of life! We can help answer questions and concerns you may have about exercise, lifestyle, medications, diet, stress and anxiety which are common following a hospitalization. WE monitor ECG and vital signs during exercise and discuss your progress with you and report to your physician(s). Cardiac Rehab is proven to help reduce readmissions, improve functional capacity and lower recurrence of problems with your heart. Our Cardiac Rehab program is Certified by the [place] [employer] (AACVPR) and Accredited by the [employer] through our [facility]. You can contact us at . We invite you to call us with your questions or to get started in our program. If you have other questions or concerns be sure to ask your physician/provider during your follow-up visit. WE look forward to seeing you!
--- NOTE | 2024-01-15 14:16 | CRPH1.INSTRU ---
General Education Discussed with Patient CAD and cardiac anatomy and function:: Patient communicates acknowledgment Explanation of diagnoses and procedures:: Patient communicates acknowledgment Sign/Symptoms of GA:: Patient communicates acknowledgment Antiplatelet therapy: Patient communicates acknowledgment Proper use of NTG-SL: Patient communicates acknowledgment Emergency procedures and activation of EMS: Patient communicates acknowledgment Compliance of all prescribed medications: Patient communicates acknowledgment Smoking Risk Factors Patient Nicotine/Smoking Risk Factors Are:: Non-smoker Dyslipidemia Risk Factors Patient Dyslipidemia Risk Factors Are:: Total Cholesterol, Triglycerides, HDL and LDL Recommendations Recommendations Include:: Lipid profile not available, Reviewed NCEP/ATP guidelines and Therapeutic Lifestyle Change dietary guidelines Response Code Dyslipidemia Response Code:: Patient communicates acknowledgment Overweight/Obesity Risk Factors Patient Overweight/Obesity Risk Factors Are:: Obesity - > or = 30 Recommendations Recommendations Include:: Weight loss of 5-10%, Reduced calorie diet and Exercise 5-7 times/week Response Code Overweight/Obesity:: Patient communicates acknowledgment Hypertension Recommendations Recommendations Include:: BP <130/80 if diabetic, DASH dietary guidelines, Decrease/maintain normal body weight and Moderation of ETOH Response Code Hypertension:: Patient communicates acknowledgment Diabetes Risk Factors Patient Diabetes Risk Factors Are:: Elevated blood sugars and Post-op hyperglycemia Recommendations Recommendations Include:: Maintain fasting blood sugars 70-110 md/dL, Maintain HgbA1c of 6% or less, Monitor blood sugar as prescribed, Diabetic dietary guidelines and Decrease/maintain body weight Response Code Diabetes:: Patient communicates acknowledgment Metabolic Syndrome Risk Factors Patient Metabolic Syndrome Risk Factors Are [3 of 5]:: Fasting blood sugar > 100 mg/dL, Waist circumference > 35 [female] or 40 [male], High triglyceride >150, Hypertension and Low HDL <40 [male] or < 50 [female] Recommendations Recommendations Include:: Patient is diabetic and Encouraged follow-up with Primary Care Physician Response Code Metabolic Syndrome Response Code:: Patient communicates acknowledgment Sedentary Risk Factors Patient Sedentary Risk Factors Are:: Lack of regular exercise Recommendations Recommendations Include:: Aerobic exercise 5-7 times/week for 20-30 minutes continuously, Benefits of regular exercise, Discussed home walking program and Monitored Outpatient Cardiac Rehab Response Code Sedentary Response Code:: Patient communicates acknowledgment Stress Recommendations Recommendations Include:: Identification of stressors, and assessment of coping skills and Stress management techniques Response Code Stress Response Code:: Patient communicates acknowledgment Comments:: PT LIFE FLIGHTED TO [facility] FOR BYPASS
== END 2024-01-15 13:45 | disposition short-term general hospital (02) ==
PROVIDERS: Nurse Practitioner Family; PCP Internal Medicine; Referring Provider Internal Medicine Cardiovascular Disease; Visit Provider Internal Medicine Cardiovascular Disease
DX: I25.110 Atherosclerotic heart disease of native coronary artery with unstable angina pectoris (principal); E11.9 Type 2 diabetes mellitus without complications; R94.39 Abnormal result of other cardiovascular function study; I49.3 Ventricular premature depolarization; I10 Essential (primary) hypertension; Z95.5 Presence of coronary angioplasty implant and graft; Z86.73 Personal history of transient ischemic attack (TIA), and cerebral infarction without residual deficits
CPT/HCPCS: 36415; 71046; 80048; 85025; 92921; 92928; 93458; 99152; 99153; J7040; Q9967; C1725; C1769; C1874; C1887; C1894; C9600

== ENCOUNTER → 2024-06-29 | Outpatient (CLI) | payer MEDICARE, SELFPAY ==
[2024-06-29 10:42] LABS: AST(SGOT) 11 U/L (15-37); Alanine Aminotransfer ALT/SGPT 18 U/L (13-56); Albumin, Serum 3.4 g/dL (3.2-5.0); Alkaline Phosphatase 74 U/L (45-117); Bilirubin, Direct 0.15 mg/dL (0.00-0.30); Globulin 3.9 g/dL (2.2-4.2); Protein, Total 7.3 g/dL (6.4-8.2)
[2024-07-02 11:09] LABS: CHOLESTEROL TOTAL 162 mg/dL (100-199); HDL-C 47 mg/dL (>39); HDL-P TOTAL 33.7 umol/L (>=30.5); INSULIN RESISTANCE SCORE 77 (<=45); LDL SIZE 21.1 nm (>20.5); LDL-C (NIH CALC) 92 mg/dL (0-99); LDL-P 1299 nmol/L (<1000); SMALL LDL-P 494 nmol/L (<=527); TRIGLYCERIDES 129 mg/dL (0-149)
== END | disposition home or self-care (01) ==
LOC: LAB 09:20
PROVIDERS: PCP Internal Medicine; Referring Provider Internal Medicine; Visit Provider Internal Medicine
DX: E78.5 Hyperlipidemia, unspecified (principal)
CPT/HCPCS: 36415; 80061; 80076; 83704

== ENCOUNTER → 2024-07-31 | Outpatient (CLI) | payer MEDICARE, SELFPAY ==
[2024-08-03 16:09] LABS: HOMOCYSTEINE 19.2 umol/L (0.0-17.2); Vitamin D 1,25-Dihydroxy 35.5 pg/mL (24.8-81.5)
== END | disposition home or self-care (01) ==
LOC: MTLAB 15:20
PROVIDERS: PCP Internal Medicine; Referring Provider Psychiatry & Neurology Neurology; Visit Provider Psychiatry & Neurology Neurology
DX: E55.9 Vitamin D deficiency, unspecified (principal); R79.89 Other specified abnormal findings of blood chemistry
CPT/HCPCS: 36415; 82652; 83090

== ENCOUNTER → 2024-08-21 | Outpatient (CLI) | payer MEDICARE, SELFPAY ==
--- NOTE | 2024-08-21 08:52 | RAD_ITS ---
STUDY: X-RAY - ESOPHAGUS (BARIUM SWALLOW) WITH FLUOROSCOPY REASON FOR EXAM: Female, 69 years old. DYSPHAGIA TECHNIQUE: 47 fluoroscopic view(s) of the esophagus were obtained following swallowing of barium. FLUOROSCOPY TIME (if supplied): (41 seconds) minutes/seconds. 40.1 mGy. COMPARISON: None. FINDINGS: There is no demonstrated esophageal foreign body. There is no demonstrated stricture or mucosal abnormality. Normal gastroesophageal junction, without a demonstrated hiatal hernia. The patient ingested a 12 mm tablet of barium. The tablet is trapped at the gastroesophageal junction. There is atherosclerotic calcification of the aortic arch with tortuosity of the descending aorta. Normal visualized pulmonary parenchyma. There are diffuse degenerative changes of the visualized thoracic spine. RAD/Esophagus Dual Contrast IMPRESSION: The ingested 12 mm tablet of barium is trapped at the gastroesophageal junction. Endoscopic correlation recommended. Electronically Signed: Harjeet Mullen MD at 14:17 EST ,
== END | disposition home or self-care (01) ==
PROVIDERS: PCP Internal Medicine; Referring Provider Internal Medicine Gastroenterology; Visit Provider Internal Medicine Gastroenterology
DX: R13.10 Dysphagia, unspecified (principal)
CPT/HCPCS: 74221

== ENCOUNTER → 2024-10-09 | Outpatient (CLI) | payer MEDICARE, SELFPAY | END | disposition home or self-care (01) | LOC: PSN 09:15 | PROVIDERS: PCP Internal Medicine; Referring Provider Nurse Practitioner Family; Visit Provider Nurse Practitioner Family | DX: J45.909 Unspecified asthma, uncomplicated (principal) | CPT/HCPCS: 94060; 94726; 94729 ==

== ENCOUNTER → 2025-01-29 | Outpatient (CLI) | payer MEDICARE, SELFPAY ==
--- NOTE | 2025-01-29 14:30 | BI_ITS ---
EXAM: SCRN MAMM (CAD)W/PB BILAT 01/29/2025 CLINICAL HISTORY: F, Age 69 y/o , SCRN MAMM (CAD)W/PB BILAT TECHNIQUE: Bilateral screening digital breast tomosynthesis with 2D and 3D images. Computer aided detection. COMPARISON: Prior exam(s) dated 11/29/2023, 08/02/2022, 07/31/2021. FINDINGS: TISSUE DENSITY: The breast tissue is almost entirely fatty.. Bilateral Breast Mammographic Findings: No significant masses, calcifications or other abnormalities are identified. BI/SCRN MAMM (CAD)W/PB BILAT IMPRESSION: Right Breast: BIRADS 1 NEGATIVE. Left Breast: BIRADS 1 NEGATIVE. OVERALL FINAL ASSESSMENT: BIRADS 1 NEGATIVE. RECOMMENDATION: Routine annual follow-up in 1 Year A letter with findings and recommendations will be mailed to the patient. Reading Location: [id number]
--- NOTE | 2025-01-29 14:40 | BD_ITS ---
PROCEDURE: DEXA BONE DENSITY STUDY 01/29/2025 REASON FOR EXAM: F, age 69 y/o . Postmenopausal. TECHNIQUE: DXA scan of sites with data reported below. RE[facility]ENCE LINKS: [facility] Adult Position[facility] COMPARISON: Prior study dated August 02, 2022. FINDINGS: BMD and T-SCORES Lumbar spine: 0.861 g/cm2, T-score -2.0 Levels: L1 through L4 Change from prior: Improvement by 0.9%. Left femoral neck: 0.517 g/cm2, T-score -3.0 Femoral neck comparison data not recommended for monitoring change. Left total hip: 0.913 g/cm2, T-score -0.2 Change from prior: Loss of 5.1%. Right femoral neck: 0.472 g/cm2, T-score -3.4 Femoral neck comparison data not recommended for monitoring change. Right total hip: 0.772 g/cm2, T-score -1.4 Change from prior: Loss of 3.4%. The World Health Organization has defined the following categories based on bone density: Normal bone density: T-score equal to or greater than -1.0 Osteopenia: T-score between -1.0 and -2.5 Osteoporosis: T-score equal to or less than -2.5 The patient meet the pharmacological treatment recommendations for prevention of osteoporosis. BD/Dexa Bone Density Study IMPRESSION: OSTEOPOROSIS. Recommend follow-up as clinically warranted. Reading Location: [id number]
== END | disposition home or self-care (01) ==
LOC: OPBD 14:29
PROVIDERS: PCP Internal Medicine; Referring Provider Internal Medicine; Visit Provider Internal Medicine
DX: Z12.31 Encounter for screening mammogram for malignant neoplasm of breast (principal); Z78.0 Asymptomatic menopausal state
CPT/HCPCS: 77063; 77067; 77080

== ENCOUNTER → 2025-07-17 | Outpatient (CLI) | payer MEDICARE, SELFPAY ==
[2025-07-17 18:13] LABS: Hematocrit 40.9 % (37-47); Hemoglobin 13.7 g/dL (12.0-15.0); Immature Granulocytes Count 0.040 X10^3/uL (0.0-0.0); Mean Corp Hgb Conc 33.5 g/dL (32-36); Mean Corpuscular Volume 91.1 fL (81-99); Mean Platelet Vol. 10.1 fl (6.2-12.0); NRBC Flagged by Analyzer 0 % (0-5); Platelet Count 347 K/mm3 (150-450); RBC Distribution Width CV 13.3 % (11.6-14.6); RBC Distribution Width SD 44.5 fl (35.1-43.9); Red Blood Count 4.49 M/mm3 (4.2-5.4); White Blood Count 8.8 K/mm3 (4.4-11.0)
[2025-07-17 18:57] LABS: Anion Gap 11 (5-15); BUN 16 mg/dL (4-19); BUN/Creat Ratio 15.2 RATIO (10-20); Calcium,Total 9.2 mg/dL (7.6-11.0); Carbon Dioxide 24.2 mmol/L (21.0-32.0); Chloride 103 mmol/L (98-108); Glucose 132 mg/dL (70-99); Potassium 4.0 mmol/L (3.3-5.1)
[2025-07-19 08:08] LABS: HOMOCYSTEINE 21.0 umol/L (0.0-17.2)
== END | disposition home or self-care (01) ==
LOC: MTLAB 14:11
PROVIDERS: Internal Medicine Cardiovascular Disease; PCP Internal Medicine; Referring Provider Psychiatry & Neurology Neurology; Visit Provider Psychiatry & Neurology Neurology
DX: E87.5 Hyperkalemia (principal)
CPT/HCPCS: 36415; 80048; 83090; 85025

== ENCOUNTER → 2025-07-29 | Outpatient (CLI) | payer MEDICARE, SELFPAY ==
[2025-07-29 16:21] LABS: AST(SGOT) 21 U/L (<=31); Alanine Aminotransfer ALT/SGPT 15 U/L (<=34); Albumin, Serum 4.4 g/dL (3.4-4.8); Alkaline Phosphatase 72 U/L (35-104); Bilirubin, Direct 0.16 mg/dL (0.00-0.30); Cholesterol 192 mg/dL (<=200); Globulin 3.5 g/dL (2.2-4.2); Low Density Lipoprotein Calc. 111 mg/dL; Triglycerides 248 mg/dL; Very Low Density Lipoprotein 50 mg/dL (5-40); cholesterol:hdl ratio screen 5.00
== END | disposition home or self-care (01) ==
LOC: LAB 14:00
PROVIDERS: Physician Assistant Medical; PCP Internal Medicine; Referring Provider Internal Medicine Cardiovascular Disease; Visit Provider Internal Medicine Cardiovascular Disease
DX: E78.5 Hyperlipidemia, unspecified (principal); Z95.1 Presence of aortocoronary bypass graft
CPT/HCPCS: 36415; 80061; 80076

== ENCOUNTER 2025-08-19 06:46 | Day surgery (SDC) | payer MEDICARE, SELFPAY ==
[2025-08-18 11:38] VITALS: BMI 46.7
--- NOTE | 2025-08-19 08:34 | CL.IE_ITS ---
Patient: LYN HUFF Study Date: 08/19/2025 Performing: Terrance Kumar MD : [id number] Age: 70 Gender: female PROCEDURES PERFORMED [id number])REMOVAL OF LOOP RECORDER INDICATIONS Cryptogenic stroke PROCEDURE DETAILS The patient was brought to the Catheterization Lab in the postabsorptive nonsedated state. Informed consent was obtained prior to the procedure. Local anesthetic was given subcutaneously to the left upper chest area with Lidocaine 2%. Incision was made to the left upper chest. ICM Loop Recorder was removed. Subcutaneous closure was completed with 3-0 Vicryl. Steri-strips applied to Lt chest area. The patient tolerated the procedure well. Estimated Blood Loss: < 10 mls IMPLANTED / EX-PLANTED DEVICES DEVICE PARAMETERS CONCLUSIONS / RECOMMENDATIONS Device Conclusions: Successful explantation of a patient activated loop recorder. Device Recommendations: Follow up with Primary Care Physician PROCEDURE MEDICATIONS Versed 1 mg IV Fentanyl 50 mcg IV Oxygen: 2 L/min via nasal cannula Signed By Terrance Kumar MD On 08/19/2025 08:55:14 Terrance Kumar MD
== END 2025-08-19 09:25 | disposition home or self-care (01) ==
PROVIDERS: PCP Internal Medicine; Referring Provider Internal Medicine Cardiovascular Disease; Visit Provider Internal Medicine Cardiovascular Disease
DX: Z45.09 Encounter for adjustment and management of other cardiac device (principal); Z79.4 Long term (current) use of insulin; E11.9 Type 2 diabetes mellitus without complications; E78.2 Mixed hyperlipidemia; Z79.899 Other long term (current) drug therapy; R07.9 Chest pain, unspecified; Z79.82 Long term (current) use of aspirin; Z95.1 Presence of aortocoronary bypass graft; Z79.84 Long term (current) use of oral hypoglycemic drugs; Z79.85 Long-term (current) use of injectable non-insulin antidiabetic drugs; I10 Essential (primary) hypertension; K21.9 Gastro-esophageal reflux disease without esophagitis; J45.909 Unspecified asthma, uncomplicated; E66.9 Obesity, unspecified; I25.10 Atherosclerotic heart disease of native coronary artery without angina pectoris; Z95.5 Presence of coronary angioplasty implant and graft; Z86.73 Personal history of transient ischemic attack (TIA), and cerebral infarction without residual deficits
CPT/HCPCS: 33286; 99152